=== PATIENT | female | born 1950 | race African-American/Black ===

== ENCOUNTER 2019-02-24 08:27 | Inpatient (IN) | payer OTHER ==
[2019-02-24] VITALS (12 sets, daily range): BP systolic 99–154; BP diastolic 62–100
[~2019-02-24] VITALS: Ht 167.6 cm; Wt 79.4 kg
--- NOTE | 2019-02-24 08:30 | NUR ---
Note undone in [facility] - 02/24/19 at 1006 by SINTIA ED Nurse Note: Patient presents to ER due to being altered. Per EMS, staff found patient altered, performed 2 compressions and no meds was given. Patient was awake when EMS arrived. Patient awake, vent dependent, quadriplegia. Moderate amount of clear oral secretions noted with crakcles, rhonchi in all bilateral lobes. Arrived here with IV to left foream, 22 g. IV site intact without redness, swelling. Provided oral suction. Patient BM x 1 and provided hygiene care. Laceration to left earlobe with dried blood noted. RN able to communicate with patient by blinking her eyes. RN able to confirm her name/. Placed patient on bus driver/monitor. Bed in lowest position. Addendum: 02/24/19 at 0948 by SINTIA Lutz Amendment undone in [facility] - 02/24/19 at 1006 by SINTIA Paniagua* Make a correction on patient being quadroplegic. Patient not able to move BUE, but able to move bilateral feet/ wiggle toes. RN removed soiled dressing from the sacrum and appled clean dressing. Patient has open wound on the sacrum with redness and peeled skin on the bilateral buttocks noted.
--- NOTE | 2019-02-24 08:30 | NUR ---
ED Nurse Note: Patient presents to ER due to being altered. Per EMS, staff found patient altered, performed 2 compressions and no meds was given. Patient was awake when EMS arrived. Patient awake, vent dependent, quadriplegia. Moderate amount of clear oral secretions noted with crakcles, rhonchi in all bilateral lobes. Arrived here with IV to left foream, 22 g. IV site intact without redness, swelling. Provided oral suction. Patient BM x 1 and provided hygiene care. Open wound to left earlobe with dried blood and sacrum noted. Peeled skin on bilatearl buttocks and posterior bilateral upper thigh noted. RN able to communicate with patient by blinking her eyes. RN able to confirm her name/. Placed patient on foundation drill operator helper. Bed in lowest position.
[2019-02-24] MEDS ORDERED: Cefepime HCl 2 GM in NS 110 ML IV STA (08:31)
--- NOTE | 2019-02-24 08:41 | Emergency Room Report ---
History of Present Illness General Chief Complaint: Altered Level of Consciousness Source: Medical Record, EMS Present Illness HPI Apparently staff at the nursing facility couldn't feel a pulse and started CPR. The patient woke up with a couple of compressions. EMS was summoned. They stated she had a lot of secretions by her her tracheostomy. The patient is usually noncommunicative but does open her eyes. CPR was not needed by EMS. They transported the patient here. They're assisting ventilations with bag valve mask. Patient has a tracheostomy Functional paraplegia Gastrostomy Respiratory failure Anxiety/Bipolar/Schizophrenia Flail limb syndrome Further history unavailable. Allergies: Coded Allergies: DIPHENHYDRAMINE (Verified Allergy, Unknown, 02/24/19) FLUPHENAZINE (Verified Allergy, Unknown, 02/24/19) Patient History Past Medical History: see triage record Past Surgical History: other - Tracheostomy Social History Narrative [place] Now: No Reviewed Nursing Documentation: PMH: Agreed; PSxH: Agreed Review of Systems All Other Systems: limited Physical Exam Vital Signs Date Time Temp Pulse Resp B/P (MAP) Pulse Ox O2 Delivery O2 Flow Rate FiO2 02/24/19 08:21 98 18 141/90 100 Mechanical Ventilator 40 Sp02 EP Interpretation: reviewed, normal General Appearance: alert, Chronically Ill Head: normocephalic, atraumatic Eyes: bilateral eye normal inspection, bilateral eye PERRL, bilateral eye EOMI ENT: moist mucus membranes Neck: supple, tracheotomy Respiratory: rales, rhonchi, wheezing, expiration, other - Thick secretions Cardiovascular #1: tachycardia, edema Gastrointestinal: soft, decreased bowel sounds Musculoskeletal: swelling Neurologic: responsive, perforator typist III-XII nml as tested, motor weakness - R hemiparesis, flaccid L upper arm, able to move L foot, sensory deficit Medical Decision Making Diagnostic Impression: Primary Impression: Pneumonia involving left lung Qualified Codes: J18.9 - Pneumonia, unspecified organism Additional Impressions: UTI (urinary tract infection) Qualified Codes: N39.0 - Urinary tract infection, site not specified Functional quadriplegia ER Course Patient presents after alleged cardiac arrest however this appears more to be respiratory difficulty. I differential includes acute myocardial infarction, pneumonia, exacerbation of COPD, sepsis, other occult infection amongst others. The patient will be evaluated with EKG, chest x-ray and labs including lactate , blood cultures and troponin. Patient retreated with IV hydration, breathing treatments, ventilatory support and antibiotics. EKG without injury. Chest x-ray with left infiltrate upper and lower lobes.White count elevated. Anemia present. Electrolytes essentially normal with mild hyperglycemia. Pyuria. Lactic acid normal. ABG with mild increase in CO2 but acceptable. (This was with increasing the tidal volume initially) Patient improving with fluids. Antibiotics begun. Patient discussed with Dr. Bruce who accepts admission to stepdown unit. Laboratory Tests Test 02/24/19 08:40 02/24/19 09:23 02/25/19 02:30 02/25/19 04:25 White Blood Count 17.9 K/UL (4.8-10.8) H 12.5 K/UL (4.8-10.8) H Red Blood Count 3.58 M/UL (4.20-5.40) L 2.90 M/UL (4.20-5.40) L Hemoglobin 9.2 G/DL (12.0-16.0) L 7.5 G/DL (12.0-16.0) L Hematocrit 30.2 % (37.0-47.0) L 24.8 % (37.0-47.0) L Mean Corpuscular Volume 84 FL (80-99) 86 FL (80-99) Mean Corpuscular Hemoglobin 25.6 PG (27.0-31.0) L 26.0 PG (27.0-31.0) L Mean Corpuscular Hemoglobin Concent 30.4 G/DL (32.0-36.0) L 30.4 G/DL (32.0-36.0) L Red Cell Distribution Width 16.3 % (11.6-14.8) H 15.9 % (11.6-14.8) H Platelet Count 613 K/UL (150-450) H 492 K/UL (150-450) H Mean Platelet Volume 5.5 FL (6.5-10.1) L 5.4 FL (6.5-10.1) L Neutrophils (%) (Auto) 81.2 % (45.0-75.0) H % (45.0-75.0) Lymphocytes (%) (Auto) 12.7 % (20.0-45.0) L % (20.0-45.0) Monocytes (%) (Auto) 2.5 % (1.0-10.0) % (1.0-10.0) Eosinophils (%) (Auto) 3.3 % (0.0-3.0) H % (0.0-3.0) Basophils (%) (Auto) 0.4 % (0.0-2.0) % (0.0-2.0) Prothrombin Time 10.7 SEC (9.30-11.50) 11.3 SEC (9.30-11.50) Prothrombin Time INR 1.0 (0.9-1.1) 1.1 (0.9-1.1) PTT 24 SEC (23-33) 26 SEC (23-33) Urine Color Pale yellow Urine Appearance Clear Urine pH 6 (4.5-8.0) Urine Specific [place] 1.010 (1.005-1.035) Urine Protein 2+ (NEGATIVE) H Urine Glucose (UA) Negative (NEGATIVE) Urine Ketones Negative (NEGATIVE) Urine Blood 1+ (NEGATIVE) H Urine Nitrite Negative (NEGATIVE) Urine Bilirubin Negative (NEGATIVE) Urine Urobilinogen Normal MG/DL (0.0-1.0) Urine Leukocyte Esterase 3+ (NEGATIVE) H Urine RBC 0-2 /HPF (0 - 2) Urine WBC 10-15 /HPF (0 - 2) H Urine Squamous Epithelial Cells Few /LPF (NONE/OCC) Urine Bacteria Few /HPF (NONE) Sodium Level 142 MMOL/L (136-145) 143 MMOL/L (136-145) Potassium Level 4.4 MMOL/L (3.5-5.1) 3.7 MMOL/L (3.5-5.1) Chloride Level 104 MMOL/L (98-107) 108 MMOL/L (98-107) H Carbon Dioxide Level 30 MMOL/L (21-32) 29 MMOL/L (21-32) Anion Gap 8 mmol/L (5-15) 6 mmol/L (5-15) Blood Urea Nitrogen 27 mg/dL (7-18) H 20 mg/dL (7-18) H Creatinine 0.4 MG/DL (0.55-1.30) L 0.4 MG/DL (0.55-1.30) L Estimate Glomerular Filtration Rate > 60 mL/min (>60) > 60 mL/min (>60) Glucose Level 173 MG/DL (74-106) H 191 MG/DL (74-106) H Lactic Acid Level 1.20 mmol/L (0.4-2.0) Calcium Level 11.7 MG/DL (8.5-10.1) H 11.0 MG/DL (8.5-10.1) H Total Bilirubin 0.1 MG/DL (0.2-1.0) L Aspartate Amino Transferase (AST) 45 U/L (15-37) H Alanine Aminotransferase (ALT) 85 U/L (12-78) H Alkaline Phosphatase 196 U/L (46-116) H Total Creatine Kinase 52 U/L (26-308) Troponin I 0.000 ng/mL (0.000-0.056) Pro-B-Type Natriuretic Peptide 52 pg/mL (0-125) Total Protein 8.4 G/DL (6.4-8.2) H Albumin 2.2 G/DL (3.4-5.0) L Globulin 6.2 g/dL Albumin/Globulin Ratio 0.4 (1.0-2.7) L Arterial Blood pH 7.361 (7.350-7.450) Arterial Blood Partial Pressure CO2 50.4 mmHg (35.0-45.0) H Arterial Blood Partial Pressure O2 96.0 mmHg (75.0-100.0) Arterial Blood HCO3 27.9 mmol/L (22.0-26.0) H Arterial Blood Oxygen Saturation 96.7 % (95-100) Arterial Blood Base Excess 1.8 (-2-2) Tristan Test Positive Stool Occult Blood Pending Neutrophils % (Manual) Pending Lymphocytes % (Manual) Pending Platelet Estimate Pending Platelet Morphology Pending Erythrocyte Sedimentation Rate Pending Reticulocyte Count Pending Hemoglobin A1c 7.2 % (4.3-6.0) H Iron Level 46 ug/dL (50-175) L Total Iron Binding Capacity 183 ug/dL (250-450) L Percent Iron Saturation 25 % (15-50) Unsaturated Iron Binding 137 ug/dL (112-346) Lactate Dehydrogenase 153 U/L (81-234) Carcinoembryonic Antigen Pending Vitamin B12 Level Pending Folate 17.3 NG/ML (8.6-58.9) Microbiology Date/Time Source Procedure Growth Status 02/24/19 08:55 Nasal Nares Influenza Types A,B Antigen (PAUL) - Final Complete EKG Diagnostic Results Rate: tachycardiac Rhythm: NSR ST Segments: no acute changes Rhythm Strip Diag. Results EP Interpretation: yes Rhythm: no PVC's, no ectopy, other - Sinus tachycardia Chest X-Ray Diagnostic Results Chest X-Ray Diagnostic Results : Chest X-Ray Ordered: Yes # of Views/Limited/Complete: 1 View Indication: Other EP Interpretation: Yes Interpretation: no pneumothorax, other - L infiltrate and possible effusion Impression: Other Electronically Signed by: Electronically signed by Chadwick Casas MD Last Vital Signs Date Time Temp Pulse Resp B/P (MAP) Pulse Ox O2 Delivery O2 Flow Rate FiO2 02/25/19 06:57 76 16 45 02/25/19 06:30 117/69 (85) 100 02/25/19 04:00 98.0 02/25/19 04:00 Mechanical Ventilator 02/24/19 16:00 45.0 Status: improved Disposition: ADMITTED INPATIENT Condition: Serious Chadwick Casas MD Feb 24, 2019 08:41
[2019-02-24] MEDS ORDERED: Ipratropium 0.02% Inh Soln 2.5ml UD HHN ONE (08:45)
[2019-02-24] MEDS ORDERED: Vancomycin 1 GM in NS 275 ML IV ONE (08:45)
[2019-02-24] MEDS ORDERED: Solu-MEDROL 125mg Inj IVP ONE (08:45)
[2019-02-24] MEDS ORDERED: Albuterol ud Inhalation HHN ONE (08:45)
[2019-02-24] MEDS ORDERED: LIPITOR10 MG GT (08:46)
[2019-02-24] MEDS ORDERED: VITAMIN C500 M1 GT (08:46)
[2019-02-24] MEDS ORDERED: FAMOTIDINE20 MG GT (08:46)
[2019-02-24] MEDS ORDERED: MULTIVITAMINS1 EAC2 GT (08:46)
[2019-02-24] MEDS ORDERED: LOVENOX10 M4 SUBQ (08:46)
[2019-02-24] MEDS ORDERED: TYLENOL325 MG GT (08:46)
[2019-02-24] MEDS ORDERED: COLACE100 MG GT (08:46)
[2019-02-24] MEDS ORDERED: NORVASC5 MG GT (08:46)
[2019-02-24] MEDS ORDERED: ZINC SULFATE220 M1 GT (08:46)
[2019-02-24] MEDS ORDERED: KLONOPIN0.5 MG ORAL (08:46)
[2019-02-24 09:04] LABS: APPEARANCE,URINE CLEAR; BASOPHILS % (AUTO) 0.4 % (0.0-2.0); BILIRUBIN, URINE NEGATIVE (NEGATIVE); COLOR,URINE PALE YELLOW; EOSINOPHILS % (AUTO) 3.3 % (0.0-3.0); GLUCOSE, URINE (UA) NEGATIVE (NEGATIVE); HEMATOCRIT 30.2 % (37.0-47.0); HEMOGLOBIN 9.2 G/DL (12.0-16.0); KETONES,URINE NEGATIVE (NEGATIVE); LEUKOCYTE ESTERASE ,URINE 3+ (NEGATIVE); LYMPHOCYTES % (AUTO) 12.7 % (20.0-45.0); MEAN CORPUSCULAR VOLUME 84 FL (80-99); MONOCYTES % (AUTO) 2.5 % (1.0-10.0); NEUTROPHILS % (AUTO) 81.2 % (45.0-75.0); NITRITE,URINE NEGATIVE (NEGATIVE); PH,URINE 6 (4.5-8.0); PLATELET COUNT 613 K/UL (150-450); PROTEIN,URINE 2+ (NEGATIVE); RED BLOOD COUNT 3.58 M/UL (4.20-5.40); RED CELL DISTRIBUTION WIDTH 16.3 % (11.6-14.8); UROBILINOGEN,URINE NORMAL MG/DL (0.0-1.0); WHITE BLOOD COUNT 17.9 K/UL (4.8-10.8)
[2019-02-24 09:10] LABS: ANION GAP 8 mmol/L (5-15); BLOOD UREA NITROGEN 27 mg/dL (7-18); CALCIUM 11.7 MG/DL (8.5-10.1); CARBON DIOXIDE 30 MMOL/L (21-32); CHLORIDE 104 MMOL/L (98-107); CREATININE 0.4 MG/DL (0.55-1.30); POTASSIUM 4.4 MMOL/L (3.5-5.1); SODIUM 142 MMOL/L (136-145)
[2019-02-24 09:21] LABS: ALANINE AMINOTRANSFERASE 85 U/L (12-78); ALBUMIN 2.2 G/DL (3.4-5.0); ALBUMIN/GLOBULIN RATIO 0.4 (1.0-2.7); ALKALINE PHOSPHATASE 196 U/L (46-116); ASPARTATE AMINO TRANSFERASE 45 U/L (15-37); BILIRUBIN,TOTAL 0.1 MG/DL (0.2-1.0); CREATINE KINASE 52 U/L (26-308)
--- NOTE | 2019-02-24 10:07 | NUR ---
ED Nurse Note: Provided pillow support on BUE and bilateral heels. Bed in lowest position.
--- NOTE | 2019-02-24 10:13 | NUR ---
ED Nurse Note: This RN and DB Forman attempted to upload pictures, but the system unable to locate/find patient and unable to save the pictures at this time.
--- NOTE | 2019-02-24 10:34 | Diagnostic Imaging Report ---
Indication: Dyspnea Comparison: None A single view chest radiograph was obtained. Findings: There is opacification of the left hemithorax which may be due to a pleural effusion. Underlying infiltrate is difficult to exclude especially at the left lung base. Heart size is probably normal. There is a tracheostomy present. Bones are osteopenic. IMPRESSION: Diffuse opacity projected over the left hemithorax. Suspect pleural disease either pleural effusion or pleural thickening. Difficult to exclude underlying parenchymal disease. Tracheostomy
--- NOTE | 2019-02-24 11:40 | NUR ---
ED Nurse Note: Placed patient in hopital bed. Patient voided x 1. Bed in lowest position. No facial grimacing or guarding noted.
--- NOTE | 2019-02-24 12:06 | NUR ---
ED Nurse Note: Patient's weight is 149.5lb.
--- NOTE | 2019-02-24 12:20 | NUR ---
ED Nurse Note: Called ICU. No nurse available at this time. Will call later.
--- NOTE | 2019-02-24 13:45 | NUR ---
NURSE NOTES: Carmine received report over the phone. Patient presents to ICU due to being altered mental status. Patient awake, lethargic, audiable respiratory distress. trach portex 7.0 to vent, settings AC14, TV 450, FI02 45%, PEEP 5. Moderate amount of white oral secretions. rhonchi bilateral lobes. IV to LT FA, 22 g, 20g RT hand. oral suction. Patient BM x 1 and provided hygiene care. incontinent of urine. Open wound to left earlobe, sacrum noted. patient communicates by blinking her eyes. . Placed patient on tool adjuster. Bed in lowest position. fall precautions in place.
--- NOTE | 2019-02-24 15:00 | NUR ---
NURSE NOTES: called MD Bruce for orders. protonix 40mg ivpb daily. hep 5,000units Q12hr, d5 1/2 NS @100, sputum culture, zosyn 3.325mg Q6hr ivpb, vanco to pharmacy, cbc/bmp/ hgb A1c in am, two meg @50ml duplex of lower extremities, Cormier cath.
--- NOTE | 2019-02-24 16:50 | NUR ---
NURSE NOTES: Cormier cath inserted, secured to leg and draining below bladder by gravity. pt tolerated well. large urine output. will continue to monitor pt.
[2019-02-24] MEDS: D5 1/2NS 1,000 ML IV SCH (16:51)
[2019-02-24] MEDS ORDERED: Vancomycin 500mg/D5W 110ml IVPB ONE ×2 (17:00)
[2019-02-24] MEDS: Piperacillin/Tazobactam 3.375 GM in D5W 110 ML IVPB SCH (17:40)
--- NOTE | 2019-02-24 18:00 | NUR ---
NURSE NOTES: called pharmacy regarding vano 500mg. will bring up as soon as possible. will hang once available.
--- NOTE | 2019-02-24 19:04 | NUR ---
RESPIRATORY NOTE: Received pt on AC 14, 450VT, 45%, PEEP +5. Pt trach-dependent w/ a cuffed, Portex 7 tube. Pt is awake, responds to stimuli. B/S larisa. rhonchi, sxn minimal amounts of thick/thin, pale-yellow secretions. Vent plugged into red outlet, ambubag at bedside. Pt in no apparent distress at this time. Will continue plan of care.
--- NOTE | 2019-02-24 19:54 | NUR ---
HAND-OFF: Report given to telma. pt in no acute distress.
--- NOTE | 2019-02-24 19:55 | NUR ---
NURSE NOTES: Endorsement received from DB Martinez. Patient opens eyes to name. Follows simple commands. Bilateral upper arms flaccid, able to move toes. Trache to vent. Portex 7.0. AC 14 Tv 450, PEEP 5, 45%. GT patent and intact. Receiving TwoCal 20ml/hr with goal of 50ml/hr. No residual noted. Cormier connected to urimeter. Right hand g18, left wrist g22. Receiving D5 1/2 NS 100 ml/hr. Head of bed elevated. Bed locked, in low position. Bed alarm on. Call light within reach.
[2019-02-24] MEDS: Heparin 5000 units/ml inj SUBQ SCH (21:20)
--- NOTE | 2019-02-24 22:00 | NUR ---
NURSE NOTES: Patient asleep at this time. Appears comfortable. No shortness of breath.
[2019-02-25] VITALS (12 sets, daily range): BP systolic 94–117; BP diastolic 54–70
--- NOTE | 2019-02-25 | NUR ---
NURSE NOTES: Bed bath, oral care, change of linens and dressings done.
--- NOTE | 2019-02-25 02:00 | NUR ---
NURSE NOTES: Sample for stool OB and Sputum C&S collected and sent to the lab.
[2019-02-25] MEDS: D5 1/2NS 1,000 ML IV SCH ×3 (02:32→21:26)
--- NOTE | 2019-02-25 04:00 | NUR ---
NURSE NOTES: Bed bath, oral care, change of dressings and linens done.
[2019-02-25] MEDS: Vancomycin 750mg/NS 275ml IVPB SCH ×4 (04:46→17:57)
[2019-02-25 05:33] LABS: INR 1.1 (0.9-1.1)
[2019-02-25 05:38] LABS: HEMATOCRIT 24.8 % (37.0-47.0); HEMOGLOBIN 7.5 G/DL (12.0-16.0); MEAN CORPUSCULAR VOLUME 86 FL (80-99); PLATELET COUNT 492 K/UL (150-450); RED CELL DISTRIBUTION WIDTH 15.9 % (11.6-14.8); WHITE BLOOD COUNT 12.5 K/UL (4.8-10.8)
[2019-02-25 05:48] LABS: ANION GAP 6 mmol/L (5-15); BLOOD UREA NITROGEN 20 mg/dL (7-18); CARBON DIOXIDE 29 MMOL/L (21-32); CHLORIDE 108 MMOL/L (98-107); CREATININE 0.4 MG/DL (0.55-1.30); POTASSIUM 3.7 MMOL/L (3.5-5.1); SODIUM 143 MMOL/L (136-145)
[2019-02-25 05:50] LABS: LACTATE DEHYDROGENASE 153 U/L (81-234)
[2019-02-25 05:54] LABS: % IRON SATURATION 25 % (15-50); IRON 46 ug/dL (50-175); TOTAL IRON BINDING CAPACITY 183 ug/dL (250-450)
[2019-02-25] MEDS: Piperacillin/Tazobactam 3.375 GM in D5W 110 ML IVPB SCH ×3 (06:26→21:27)
--- NOTE | 2019-02-25 06:30 | NUR ---
TRANSFER TO FLOOR: Patient transferred to [facility], per hospital bed. Report given to DB Monk. Patient has no belongings, medications given to DB Monk
--- NOTE | 2019-02-25 06:45 | NUR ---
NURSE NOTES: Received a transfer patient from ICU,report given by DB Liu.Patient has no respiratory distress,no s/s of pain SR on bus driver/monitor,open eyes,blinking,Trach Portex 7 AC 14 TV 450 FiO2 45% PEEP 5,GT in place running @ 30 ml/hr,goal is 50 ml/hr,BS active in all quadrants,f/cath in place running toward gravity,pt on P 200 mattress,IV asymptomatic,intact on R hand G 18 and L wrist G 22 running w/D 5 1/2 NS@ 100ml/hr,belongings list signed for no belongings,will continue to monitor and follow POC.
--- NOTE | 2019-02-25 06:57 | NUR ---
RESPIRATORY NOTE: Received pt on AC 14, 450VT, 45%, PEEP +5. Pt trach-dependent w/ a cuffed, Portex 7 tube. Pt is awake, responds to stimuli. B/S larisa. rhonchi diminished heard upon auscultation, sxn moderate amounts of thick klein-yellow secretions without incidents. Vent plugged into red outlet, ambu bag at bedside, alarms are set and audible. Pt in no apparent distress at this time. Will continue plan of care.
--- NOTE | 2019-02-25 07:19 | NUR ---
HAND-OFF: Report given to DB Kaur.Patient stable.
--- NOTE | 2019-02-25 07:20 | NUR ---
NURSE NOTES: Report received from Aleshia Villa RN.Pt resting in bed asleep ,noted no resp distress with trach tube to vent ,on current settings,tolerating well,GTF 2 call at 40 ml/hr, goal is 50,no residual noted,Cormier cath to BSD draining yellow urine,IV sites x2 RH and LW with IVF D5 1/2 NS at 100 ml/hr both intact,SR up x2 HOB elevated,bed lock in lowest position,will continue with plans of care.
[2019-02-25] MEDS: Pantoprazole Inj IVP SCH (09:04)
[2019-02-25] MEDS: Heparin 5000 units/ml inj SUBQ SCH ×2 (09:06→21:26)
--- NOTE | 2019-02-25 09:39 | NUR ---
INTERIOR DESIGN PROFESSIONALANESTHESIOLOGIST ATTENDING 68 Y/O FEMALE BIBA FROM [facility] TO [facility] CC:ALOC SI:PNA . UTI VS: BP 154/100, P 110, T 99.6, RR 14, SpO2 100 ETT AC 14, TV 450, PEEP 5.0 FiO2 45 WBC 17.9, RBC 3.58, Hgb 9.2, Hct 30.2, BUN 20, CR 0.4, URINE PROTEIN 2+, URINE BLOOD 1+, UR LEUKOCYTE ESTERASE 3+ CXR IMPRESSION: Diffuse opacity projected over the left hemithorax. Suspect pleural disease either pleural effusion or pleural thickening. Difficult to exclude underlying parenchymal disease. IS:VANCOMYCIN 275ml IV D5/NS x1L IV ADMITTED TO SDU DC PLAN: RETURN TO [facility]
--- NOTE | 2019-02-25 10:25 | NUR ---
RD ASSESSMENT & RECOMMENDATIONS SEE CARE ACTIVITY FOR COMPLETE ASSESSMENT DAILY ESTIMATED NEEDS: Needs based on Critical care, wounds 63kg 22-30 kcals/kg 0721-0605 total kcals 1.25-2 g protein/kg 79-126 g total protein 25-30 mL/kg 2037-8008 total fluid mLs NUTRITION DIAGNOSIS: 1) Swallowing difficulty r/t respiratory status as evidenced by pt is vent dep via trach, GT dep, on tube feeds. 2) Increased kcal and protein needs r/t wound healing as evidenced by pt w/ partial thickness sacral wound, L ear wound documented as unstageable. CURRENT TF:2cal @50ml * Exceeds kcal needs by 127% * ENTERAL NUTRITION RECOMMENDATIONS: TF CHANGE TO -> VITAL AF 1.2 @50ml/hr x24 hrs to provide 1200ml, 1440 kcal, 90g pro, 973ml free H2O - REC TF CHANGE TO VITAL AF 1.2, start @30ml/hr, advance as tolerated 10ml q4-6 hrs to goal - Flush per MD. HOB over 30 degrees -------- ADDITIONAL RECOMMENDATIONS: 1) PER SNF: pt is 139#, 65inches tall 2) Add ALEENA BID via GT daily F/up w/ WC eval 3) Rec SSI, bedside blood checks 4) Check lytes daily, replete as needed 5) Weekly CALIBRATED bed scale wts
--- NOTE | 2019-02-25 11:15 | NUR ---
NURSE NOTES: Seen by Dr Corrigan,ordered bld transfusion for Hg7.5/Hct24.0 ,will obtain consent for blood transfusion.
--- NOTE | 2019-02-25 11:23 | NUR ---
NURSE NOTES: initial intervention to be included Addendum: 02/25/19 at 1124 by Michelle Whiteside RN Amended: Links added.
--- NOTE | 2019-02-25 11:25 | Consultation ---
History of Present Illness General Chief Complaint: Altered Level of Consciousness Present Illness HPI 68 year old female with hx of chronic respiratory failure, s/p trach, vent, PEG , alf resident brought in by paramedics because the staff at the alf couldn't feel a pulse and started CPR on her . The patient woke up with a couple of compressions. She had a lot of secretions by her her tracheostomy. The patient is usually noncommunicative but does open her eyes. She was evaluated in ER and admitted to [facility] for treatment of her pneumonia. Allergies: Coded Allergies: DIPHENHYDRAMINE (Verified Allergy, Unknown, 02/24/19) FLUPHENAZINE (Verified Allergy, Unknown, 02/24/19) Medication History Scheduled Amlodipine Besylate (Norvasc), 5 MG GT DAILY, (Reported) Ascorbic Acid* (Vitamin C*), 500 MG GT DAILY, (Reported) Atorvastatin Calcium* (Lipitor*), 10 MG GT DAILY, (Reported) Clonazepam* (Klonopin*), 0.5 MG ORAL Q12HR, (Reported) Docusate Sodium* (Colace*), 100 MG GT DAILY, (Reported) Enoxaparin* (Lovenox*), 40 MG SUBQ DAILY, (Reported) Famotidine (Famotidine), 20 MG GT DAILY, (Reported) Multivitamins* (Multivitamins*), 1 TAB GT DAILY, (Reported) Zinc Sulfate (Zinc Sulfate*), 220 MG GT DAILY, (Reported) Scheduled PRN Acetaminophen (Tylenol), 325 MG GT Q4HR PRN for Prn Pain/Headache/Temp > 101, ( Reported) Patient History Healthcare decision maker unable to obtain Resuscitation status Full Code Advanced Directive on File Past Medical/Surgical History Past Medical/Surgical History: (1) Chronic respiratory failure (2) Feeding by G-tube Review of Systems Neurological: Reports: no symptoms Endocrine: Reports: no symptoms Hematologic/Lymphatic: Reports: no symptoms Physical Exam General Appearance: WD/WN, no apparent distress Lines, tubes and drains: peripheral HEENT: normocephalic, atraumatic Neck: non-tender, normal alignment Respiratory/Chest: chest wall non-tender, rhonchi - left, rhonchi - right Breasts: no masses Cardiovascular/Chest: normal peripheral pulses Abdomen: normal bowel sounds, non tender Genitourinary/Rectal: normal genital exam Last 24 Hour Vital Signs Date Time Temp Pulse Resp B/P (MAP) Pulse Ox O2 Delivery O2 Flow Rate FiO2 02/25/19 10:36 78 02/25/19 09:20 69 14 45 02/25/19 08:00 Mechanical Ventilator 02/25/19 08:00 45 02/25/19 08:00 97.7 75 15 116/70 (85) 100 02/25/19 06:57 76 16 45 02/25/19 06:30 72 17 117/69 (85) 100 02/25/19 06:00 72 15 104/59 (74) 100 02/25/19 05:10 67 14 45 02/25/19 05:00 72 15 98/54 (69) 99 02/25/19 04:00 98.0 77 16 112/63 (79) 100 02/25/19 04:00 45 02/25/19 04:00 Mechanical Ventilator 02/25/19 04:00 72 02/25/19 03:00 70 16 109/58 (75) 100 02/25/19 02:55 69 15 45 02/25/19 02:00 71 17 111/69 (83) 100 02/25/19 01:00 69 17 45 02/25/19 01:00 69 17 111/69 (83) 100 02/25/19 00:00 97.9 71 18 108/68 (81) 100 02/25/19 00:00 71 02/25/19 00:00 45 02/25/19 00:00 Mechanical Ventilator 02/24/19 23:00 73 18 128/84 (99) 100 02/24/19 22:56 71 22 45 02/24/19 22:00 69 17 105/63 (77) 100 02/24/19 21:00 68 17 105/63 (77) 100 02/24/19 20:50 70 16 45 02/24/19 20:00 70 16 108/67 (81) 100 02/24/19 20:00 Mechanical Ventilator 02/24/19 20:00 45 02/24/19 20:00 71 02/24/19 19:02 84 20 45 02/24/19 19:00 98.0 74 14 115/72 (86) 100 02/24/19 18:04 80 14 121/73 (89) 100 02/24/19 17:47 Mechanical Ventilator 02/24/19 17:29 86 15 45 02/24/19 17:01 87 27 114/68 (83) 99 02/24/19 16:19 90 02/24/19 16:00 22 99/62 (74) 99 02/24/19 16:00 Mechanical Ventilator 45.0 02/24/19 15:02 95 20 45 02/24/19 15:00 98.2 93 22 111/67 (82) 99 02/24/19 14:08 Mechanical Ventilator 02/24/19 12:58 98.1 82 16 110/65 99 Room Air 02/24/19 12:52 93 15 45 02/24/19 11:30 98.4 94 16 136/74 99 Mechanical Ventilator 45 Intake and Output 02/24/19 02/25/19 18:59 06:59 Intake Total 1762.5 ml 2027.500 ml Output Total 30 ml 1050 ml Balance 1732.5 ml 977.500 ml Intake Free Water 160 ml IV Total 1762.5 ml 1557.500 ml Tube Feeding 310 ml Output Urine Total 30 ml 1050 ml # Bowel Movements 2 1 Laboratory Tests Test 02/25/19 02:30 02/25/19 04:25 Stool Occult Blood Negative (NEGATIVE) White Blood Count 12.5 K/UL (4.8-10.8) H Red Blood Count 2.90 M/UL (4.20-5.40) L Hemoglobin 7.5 G/DL (12.0-16.0) L Hematocrit 24.8 % (37.0-47.0) L Mean Corpuscular Volume 86 FL (80-99) Mean Corpuscular Hemoglobin 26.0 PG (27.0-31.0) L Mean Corpuscular Hemoglobin Concent 30.4 G/DL (32.0-36.0) L Red Cell Distribution Width 15.9 % (11.6-14.8) H Platelet Count 492 K/UL (150-450) H Mean Platelet Volume 5.4 FL (6.5-10.1) L Neutrophils (%) (Auto) % (45.0-75.0) Lymphocytes (%) (Auto) % (20.0-45.0) Monocytes (%) (Auto) % (1.0-10.0) Eosinophils (%) (Auto) % (0.0-3.0) Basophils (%) (Auto) % (0.0-2.0) Differential Total Cells Counted 100 Neutrophils % (Manual) 91 % (45-75) H Lymphocytes % (Manual) 7 % (20-45) L Monocytes % (Manual) 2 % (1-10) Eosinophils % (Manual) 0 % (0-3) Basophils % (Manual) 0 % (0-2) Band Neutrophils 0 % (0-8) Platelet Estimate Adequate Platelet Morphology Normal Polychromasia 1+ Anisocytosis 1+ Erythrocyte Sedimentation Rate 127 MM/HR (0-30) H Reticulocyte Count 1.3 % (0.0-2.0) Prothrombin Time 11.3 SEC (9.30-11.50) Prothromb Time International Ratio 1.1 (0.9-1.1) Activated Partial Thromboplast Time 26 SEC (23-33) Sodium Level 143 MMOL/L (136-145) Potassium Level 3.7 MMOL/L (3.5-5.1) Chloride Level 108 MMOL/L (98-107) H Carbon Dioxide Level 29 MMOL/L (21-32) Anion Gap 6 mmol/L (5-15) Blood Urea Nitrogen 20 mg/dL (7-18) H Creatinine 0.4 MG/DL (0.55-1.30) L Estimat Glomerular Filtration Rate > 60 mL/min (>60) Glucose Level 191 MG/DL (74-106) H Hemoglobin A1c 7.2 % (4.3-6.0) H Calcium Level 11.0 MG/DL (8.5-10.1) H Iron Level 46 ug/dL (50-175) L Total Iron Binding Capacity 183 ug/dL (250-450) L Percent Iron Saturation 25 % (15-50) Unsaturated Iron Binding 137 ug/dL (112-346) Lactate Dehydrogenase 153 U/L (81-234) Carcinoembryonic Antigen Pending Vitamin B12 Level > 2000 PG/ML (193-986) H Folate 17.3 NG/ML (8.6-58.9) Microbiology Date/Time Source Procedure Growth Status 02/25/19 01:00 Sputum Gram Stain - Final Resulted 02/25/19 01:00 Sputum Sputum Culture Pending Resulted Height (Feet): 5 Height (Inches): 6.00 Weight (Pounds): 175 Medications Current Medications Medications (Trade) Dose Ordered Sig/Lavon Route PRN Reason Start Time Stop Time Status Last Admin Dose Admin Dextrose/Sodium Chloride 1,000 ml @ 100 mls/hr Q10H IV 02/24/19 16:00 03/26/19 15:59 02/25/19 02:32 Heparin Sodium (Porcine) (Heparin 5000 units/ml) 5,000 units EVERY 12 HOURS SUBQ 02/24/19 21:00 03/26/19 20:59 02/25/19 09:06 Pantoprazole (Protonix) 40 mg DAILY IVP 02/25/19 09:00 03/27/19 08:59 02/25/19 09:04 Piperacillin Sod/ Tazobactam Sod 3.375 gm/Dextrose 110 ml @ 27.5 mls/hr Q8HR IVPB 02/24/19 18:00 03/03/19 17:59 02/25/19 06:26 Vancomycin HCl (Vanco rx to dose) 1 ea DAILY PRN MISC Per rx protocol 02/24/19 16:00 03/26/19 15:59 Vancomycin HCl 750 mg/Sodium Chloride 275 ml @ 183.333 mls/hr Q12HR@0500,1700 IVPB 02/25/19 05:00 03/02/19 04:59 02/25/19 04:46 Assessment/Plan Problem List: (1) Acute and chronic respiratory failure ICD Codes: J96.20 - Acute and chronic respiratory failure, unspecified whether with hypoxia or hypercapnia SNOMED: 02224608 (2) Pneumonia involving left lung ICD Codes: J18.9 - Pneumonia, unspecified organism SNOMED: 621251951 Qualifiers: Qualified Codes: J18.9 - Pneumonia, unspecified organism (3) Severe anemia ICD Codes: D64.9 - Anemia, unspecified SNOMED: 702279546 (4) Chronic respiratory failure ICD Codes: J96.10 - Chronic respiratory failure, unspecified whether with hypoxia or hypercapnia SNOMED: 70867016 (5) Functional quadriplegia ICD Codes: R53.2 - Functional quadriplegia SNOMED: 314337889136994 (6) Feeding by G-tube ICD Codes: Z93.1 - Gastrostomy status SNOMED: 858306974, 011009219, 751184232 Respiratory: monitor respiratory rate, adjust FIO2 Cardiac: continue to monitor HR/BP Renal: F/U I&O, keep IV fluid Infectious Disease: check cultures, continue antibiotics Gastrointestinal: continue feedings/current rate Endocrine: check TSH, check HgA1C Hematologic: transfuse if hgb<8.5 Neurologic: PRN Ativan, PRN Morphine, keep patient comfortable Affect: PRN ativan Prophylaxis: Protonix, Heparin Time Spent (Minutes): 40 Notes Reviewed: first beater, renal Discussed with: nurses, consultants, rn case manager hospice Rula Corrigan MD Feb 25, 2019 11:25
--- NOTE | 2019-02-25 12:20 | NUR ---
NURSE NOTES: called Public Guardian for consent for bld transfusion,but said he will consult the court .mammography technician Elsa notified Dr mccormack ,said he will give consent in the progress note.
--- NOTE | 2019-02-25 12:26 | Consultation ---
History of Present Illness General Date patient seen: Feb 25, 2019 Chief Complaint: Altered Level of Consciousness Present Illness HPI 68 y/o F with hx of chronic respiratory failure, s/p trach, vent, PEG, anxiety, schizoaffective disorder, [facility] resident presents to ED on 02/24 after [facility] staff couldnt feel a pulce and CPR was started. Patient woke up with a couple of compressions. She was noted to have lots of secretions from trach, Allergies: Coded Allergies: DIPHENHYDRAMINE (Verified Allergy, Unknown, 02/24/19) FLUPHENAZINE (Verified Allergy, Unknown, 02/24/19) Medication History Scheduled Amlodipine Besylate (Norvasc), 5 MG GT DAILY, (Reported) Ascorbic Acid* (Vitamin C*), 500 MG GT DAILY, (Reported) Atorvastatin Calcium* (Lipitor*), 10 MG GT DAILY, (Reported) Clonazepam* (Klonopin*), 0.5 MG ORAL Q12HR, (Reported) Docusate Sodium* (Colace*), 100 MG GT DAILY, (Reported) Enoxaparin* (Lovenox*), 40 MG SUBQ DAILY, (Reported) Famotidine (Famotidine), 20 MG GT DAILY, (Reported) Multivitamins* (Multivitamins*), 1 TAB GT DAILY, (Reported) Zinc Sulfate (Zinc Sulfate*), 220 MG GT DAILY, (Reported) Scheduled PRN Acetaminophen (Tylenol), 325 MG GT Q4HR PRN for Prn Pain/Headache/Temp > 101, ( Reported) Patient History Healthcare decision maker unable to obtain Resuscitation status Full Code Advanced Directive on File Patient History Narrative Pmhx: as above Shx: reviewed Fhx non contributory Review of Systems All Other Systems: negative except mentioned in HPI Physical Exam Physical Exam Narrative General Appearance: WD/WN, no apparent distress Lines, tubes and drains: peripheral HEENT: normocephalic, atraumatic Neck: non-tender, normal alignment Respiratory/Chest: chest wall non-tender, rhonchi - left, rhonchi - right Cardiovascular/Chest: normal peripheral pulses Abdomen: normal bowel sounds, non tender Last 24 Hour Vital Signs Date Time Temp Pulse Resp B/P (MAP) Pulse Ox O2 Delivery O2 Flow Rate FiO2 02/25/19 11:23 79 15 45 02/25/19 10:36 78 02/25/19 09:20 69 14 45 02/25/19 08:00 Mechanical Ventilator 02/25/19 08:00 45 02/25/19 08:00 97.7 75 15 116/70 (85) 100 02/25/19 06:57 76 16 45 02/25/19 06:30 72 17 117/69 (85) 100 02/25/19 06:00 72 15 104/59 (74) 100 02/25/19 05:10 67 14 45 02/25/19 05:00 72 15 98/54 (69) 99 02/25/19 04:00 98.0 77 16 112/63 (79) 100 02/25/19 04:00 45 02/25/19 04:00 Mechanical Ventilator 02/25/19 04:00 72 02/25/19 03:00 70 16 109/58 (75) 100 02/25/19 02:55 69 15 45 02/25/19 02:00 71 17 111/69 (83) 100 02/25/19 01:00 69 17 45 02/25/19 01:00 69 17 111/69 (83) 100 02/25/19 00:00 97.9 71 18 108/68 (81) 100 02/25/19 00:00 71 02/25/19 00:00 45 02/25/19 00:00 Mechanical Ventilator 02/24/19 23:00 73 18 128/84 (99) 100 02/24/19 22:56 71 22 45 02/24/19 22:00 69 17 105/63 (77) 100 02/24/19 21:00 68 17 105/63 (77) 100 02/24/19 20:50 70 16 45 02/24/19 20:00 70 16 108/67 (81) 100 02/24/19 20:00 Mechanical Ventilator 02/24/19 20:00 45 02/24/19 20:00 71 02/24/19 19:02 84 20 45 02/24/19 19:00 98.0 74 14 115/72 (86) 100 02/24/19 18:04 80 14 121/73 (89) 100 02/24/19 17:47 Mechanical Ventilator 02/24/19 17:29 86 15 45 02/24/19 17:01 87 27 114/68 (83) 99 02/24/19 16:19 90 02/24/19 16:00 22 99/62 (74) 99 02/24/19 16:00 Mechanical Ventilator 45.0 02/24/19 15:02 95 20 45 02/24/19 15:00 98.2 93 22 111/67 (82) 99 02/24/19 14:08 Mechanical Ventilator 02/24/19 12:58 98.1 82 16 110/65 99 Room Air 02/24/19 12:52 93 15 45 Intake and Output 02/24/19 02/25/19 18:59 06:59 Intake Total 1762.5 ml 2027.500 ml Output Total 30 ml 1050 ml Balance 1732.5 ml 977.500 ml Intake Free Water 160 ml IV Total 1762.5 ml 1557.500 ml Tube Feeding 310 ml Output Urine Total 30 ml 1050 ml # Bowel Movements 2 1 Laboratory Tests Test 02/25/19 02:30 02/25/19 04:25 Stool Occult Blood Negative (NEGATIVE) White Blood Count 12.5 K/UL (4.8-10.8) H Red Blood Count 2.90 M/UL (4.20-5.40) L Hemoglobin 7.5 G/DL (12.0-16.0) L Hematocrit 24.8 % (37.0-47.0) L Mean Corpuscular Volume 86 FL (80-99) Mean Corpuscular Hemoglobin 26.0 PG (27.0-31.0) L Mean Corpuscular Hemoglobin Concent 30.4 G/DL (32.0-36.0) L Red Cell Distribution Width 15.9 % (11.6-14.8) H Platelet Count 492 K/UL (150-450) H Mean Platelet Volume 5.4 FL (6.5-10.1) L Neutrophils (%) (Auto) % (45.0-75.0) Lymphocytes (%) (Auto) % (20.0-45.0) Monocytes (%) (Auto) % (1.0-10.0) Eosinophils (%) (Auto) % (0.0-3.0) Basophils (%) (Auto) % (0.0-2.0) Differential Total Cells Counted 100 Neutrophils % (Manual) 91 % (45-75) H Lymphocytes % (Manual) 7 % (20-45) L Monocytes % (Manual) 2 % (1-10) Eosinophils % (Manual) 0 % (0-3) Basophils % (Manual) 0 % (0-2) Band Neutrophils 0 % (0-8) Other Cell Type Pathologist review Platelet Estimate Adequate Platelet Morphology Normal Polychromasia 1+ Anisocytosis 1+ Erythrocyte Sedimentation Rate 127 MM/HR (0-30) H Reticulocyte Count 1.3 % (0.0-2.0) Prothrombin Time 11.3 SEC (9.30-11.50) Prothromb Time International Ratio 1.1 (0.9-1.1) Activated Partial Thromboplast Time 26 SEC (23-33) Sodium Level 143 MMOL/L (136-145) Potassium Level 3.7 MMOL/L (3.5-5.1) Chloride Level 108 MMOL/L (98-107) H Carbon Dioxide Level 29 MMOL/L (21-32) Anion Gap 6 mmol/L (5-15) Blood Urea Nitrogen 20 mg/dL (7-18) H Creatinine 0.4 MG/DL (0.55-1.30) L Estimat Glomerular Filtration Rate > 60 mL/min (>60) Glucose Level 191 MG/DL (74-106) H Hemoglobin A1c 7.2 % (4.3-6.0) H Calcium Level 11.0 MG/DL (8.5-10.1) H Iron Level 46 ug/dL (50-175) L Total Iron Binding Capacity 183 ug/dL (250-450) L Percent Iron Saturation 25 % (15-50) Unsaturated Iron Binding 137 ug/dL (112-346) Lactate Dehydrogenase 153 U/L (81-234) Carcinoembryonic Antigen Pending Vitamin B12 Level > 2000 PG/ML (193-986) H Folate 17.3 NG/ML (8.6-58.9) Microbiology Date/Time Source Procedure Growth Status 02/25/19 01:00 Sputum Gram Stain - Final Resulted 02/25/19 01:00 Sputum Sputum Culture Pending Resulted Height (Feet): 5 Height (Inches): 6.00 Weight (Pounds): 175 Medications Current Medications Medications (Trade) Dose Ordered Sig/Lavon Route PRN Reason Start Time Stop Time Status Last Admin Dose Admin Dextrose/Sodium Chloride 1,000 ml @ 100 mls/hr Q10H IV 02/24/19 16:00 03/26/19 15:59 02/25/19 02:32 Heparin Sodium (Porcine) (Heparin 5000 units/ml) 5,000 units EVERY 12 HOURS SUBQ 02/24/19 21:00 03/26/19 20:59 02/25/19 09:06 Pantoprazole (Protonix) 40 mg DAILY IVP 02/25/19 09:00 03/27/19 08:59 02/25/19 09:04 Piperacillin Sod/ Tazobactam Sod 3.375 gm/Dextrose 110 ml @ 27.5 mls/hr Q8HR IVPB 02/24/19 18:00 03/03/19 17:59 02/25/19 06:26 Vancomycin HCl (Vanco rx to dose) 1 ea DAILY PRN MISC Per rx protocol 02/24/19 16:00 03/26/19 15:59 Vancomycin HCl 750 mg/Sodium Chloride 275 ml @ 183.333 mls/hr Q12HR@0500,1700 IVPB 02/25/19 05:00 03/02/19 04:59 02/25/19 04:46 Assessment/Plan Assessment/Plan Abx: IV Vancomycin 02/24- Zosyn 02/24- CEfepime x1 02/24 Levaquin x1 02/24 Assessment: Sepsis 2ryt o Probable PNA and UTI -CXR: Diffuse opacity projected over the left hemithorax. Suspect pleural disease either pleural effusion or pleural thickening. Difficult to exclude underlying parenchymal disease. -sp cx p -u/a wbc 10-15, nit neg, leuk +3; ucx p -influenza sc neg Afebrile Leukocytosis, improving Elevated LFTs chronic respiratory failure s/p trach/vent PEG anxiety schizoaffective disorder [facility] resident Plan: -Continue empiric IV Vancomycin and Zosyn #2 pending cultures -f.u cx -Monitor CBC/CMP, temperatures -legionella ag urince -PEG/Trach care -CBC, CMP am Thank you for this consultation. Will continue to follow along with you. Renae Conteh M.D. Feb 25, 2019 12:26
--- NOTE | 2019-02-25 15:57 | NUR ---
NURSE NOTES:WOUND CARE NOTES:Pt presented on admission with unstageable wound L earlobe.Wound has 95% soft necrosis ,5% viable. (L)2.5cm x (W)0.7cm. Periwound earlobe extending into ear canal has darker than is normal skin tone. Full thickness sacral pressure injury with 10% slough otherwise wound is viable with measureable depth at coccyx. Pt flinches each time area is minimally palpated. (L)2.5cm x (W)7.5cm x (D)0.4cm.Edges of wound macerated. Erythema periwound. Bilat heels firm and easily blanchable. Tx.PLan:Cleanse Sacral wound with Saline. Apply Therahoney .Apply Triad periwound.Cover with Optifoam drsg .Change Daily and prn. Cleanse L ear with Saline. Apply Therahoney. Cover with Optifoam drsg .Change Daily and prn. Apply Cavilon to both heels .Cover each heel with Optifoam drsg. Change every 7 days and prn. Please maintain Foam Mold around L ear to reduce pressure from ear. Reposition at least every 22hours or as tolerated. Off-load heels with Pillow. APM/SYLVIA mattress.
--- NOTE | 2019-02-25 16:51 | General Progress Note ---
Assessment/Plan Assessment/Plan Assessment and Recs # Anemia of chronic disease (or of iron deficiency) due to underlying chronic medical issues, multifactorial --> Anemia workup has been ordered --> No evidence of hemolysis is noted, peripheral smear has been reviewed. --> Hgb goal >7. Transfuse prn. --> Epogen or iron at this time is not particularly indicated --> Medications have been reviewed --> evaluate with Gi team prn # Leukocytosis/Elevated white blood cell count, unspecified likely related to underlying stress reaction, smoking v more likely infection --> have reviewed peripheral smear and bandemia/neutrophilia noted --> continue antibiotics if they have been started by ID team --> monitor for resolution on cxr for pna --> trend wbc 18k-->12.5k # Thrombocytosis again similar to above --> likely related to infection, monitor for resolution # Transaminitis/elevated lffts # Chronic respiratory failure s/p trach/vent # Dysphagia is s/p PEG # Anxiety # Schizoaffective disorder # [facility] resident The timing of this note does not necessarily reflect the time of the patient was seen. Greatly appreciate consultation! Subjective Constitutional: Denies: no symptoms, chills, diaphoresis, fever, malaise, weakness, other HEENT: Denies: no symptoms, eye pain, blurred vision, tearing, double vision, ear pain, ear discharge, nose pain, nose congestion, throat pain, throat swelling, mouth pain, mouth swelling, other Cardiovascular: Denies: no symptoms, chest pain, edema, irregular heart rate, lightheadedness, palpitations, syncope, other Respiratory: Denies: no symptoms, cough, orthopnea, shortness of breath, SOB with excertion, SOB at rest, sputum, stridor, wheezing, other Endocrine: Denies: no symptoms, excessive sweating, flushing, intolerance to cold, intolerance to heat, increased hunger, increased thirst, increased urine, unexplained weight gain, unexplained weight loss, other Hematologic/Lymphatic: Denies: no symptoms, anemia, easy bleeding, easy bruising, other Allergies: Coded Allergies: DIPHENHYDRAMINE (Verified Allergy, Unknown, 02/24/19) FLUPHENAZINE (Verified Allergy, Unknown, 02/24/19) Subjective 02/25: no events, on abx, is in the sdu, will be getting prbc transfusion today Objective Last 24 Hour Vital Signs Date Time Temp Pulse Resp B/P (MAP) Pulse Ox O2 Delivery O2 Flow Rate FiO2 02/25/19 16:00 45 02/25/19 16:00 98.1 83 18 106/65 (79) 97 02/25/19 15:17 75 19 45 02/25/19 13:15 75 17 45 02/25/19 12:00 Mechanical Ventilator 02/25/19 12:00 98.8 78 18 94/59 (71) 97 02/25/19 12:00 45 02/25/19 11:42 74 02/25/19 11:23 79 15 45 02/25/19 10:36 78 02/25/19 09:20 69 14 45 02/25/19 08:00 Mechanical Ventilator 02/25/19 08:00 45 02/25/19 08:00 97.7 75 15 116/70 (85) 100 02/25/19 06:57 76 16 45 02/25/19 06:30 72 17 117/69 (85) 100 02/25/19 06:00 72 15 104/59 (74) 100 02/25/19 05:10 67 14 45 02/25/19 05:00 72 15 98/54 (69) 99 02/25/19 04:00 98.0 77 16 112/63 (79) 100 02/25/19 04:00 45 02/25/19 04:00 Mechanical Ventilator 02/25/19 04:00 72 02/25/19 03:00 70 16 109/58 (75) 100 02/25/19 02:55 69 15 45 02/25/19 02:00 71 17 111/69 (83) 100 02/25/19 01:00 69 17 45 02/25/19 01:00 69 17 111/69 (83) 100 02/25/19 00:00 97.9 71 18 108/68 (81) 100 02/25/19 00:00 71 02/25/19 00:00 45 02/25/19 00:00 Mechanical Ventilator 02/24/19 23:00 73 18 128/84 (99) 100 02/24/19 22:56 71 22 45 02/24/19 22:00 69 17 105/63 (77) 100 02/24/19 21:00 68 17 105/63 (77) 100 02/24/19 20:50 70 16 45 02/24/19 20:00 70 16 108/67 (81) 100 02/24/19 20:00 Mechanical Ventilator 02/24/19 20:00 45 02/24/19 20:00 71 02/24/19 19:02 84 20 45 02/24/19 19:00 98.0 74 14 115/72 (86) 100 02/24/19 18:04 80 14 121/73 (89) 100 02/24/19 17:47 Mechanical Ventilator 02/24/19 17:29 86 15 45 02/24/19 17:01 87 27 114/68 (83) 99 Intake and Output 02/24/19 02/25/19 18:59 06:59 Intake Total 1762.5 ml 2027.500 ml Output Total 30 ml 1050 ml Balance 1732.5 ml 977.500 ml Intake Free Water 160 ml IV Total 1762.5 ml 1557.500 ml Tube Feeding 310 ml Output Urine Total 30 ml 1050 ml # Bowel Movements 2 1 Laboratory Tests 02/25/19 02:30: Stool Occult Blood Negative 02/25/19 04:25: White Blood Count 12.5H, Red Blood Count 2.90L, Hemoglobin 7.5L, Hematocrit 24.8L, Mean Corpuscular Volume 86, Mean Corpuscular Hemoglobin 26.0L, Mean Corpuscular Hemoglobin Concent 30.4L, Red Cell Distribution Width 15.9H, Platelet Count 492H, Mean Platelet Volume 5.4L, Neutrophils (%) (Auto) , Lymphocytes (%) (Auto) , Monocytes (%) (Auto) , Eosinophils (%) (Auto) , Basophils (%) (Auto) , Differential Total Cells Counted 100, Neutrophils % ( Manual) 91H, Lymphocytes % (Manual) 7L, Monocytes % (Manual) 2, Eosinophils % ( Manual) 0, Basophils % (Manual) 0, Band Neutrophils 0, Other Cell Type Pathologist review, Platelet Estimate Adequate, Platelet Morphology Normal, Polychromasia 1+, Anisocytosis 1+, Erythrocyte Sedimentation Rate 127H, Reticulocyte Count 1.3, Prothrombin Time 11.3, Prothromb Time International Ratio 1.1, Activated Partial Thromboplast Time 26, Sodium Level 143, Potassium Level 3.7, Chloride Level 108H, Carbon Dioxide Level 29, Anion Gap 6, Blood Urea Nitrogen 20H, Creatinine 0.4L, Estimat Glomerular Filtration Rate > 60, Glucose Level 191H, Hemoglobin A1c 7.2H, Calcium Level 11.0H, Iron Level 46L, Total Iron Binding Capacity 183L, Percent Iron Saturation 25, Unsaturated Iron Binding 137, Lactate Dehydrogenase 153, Carcinoembryonic Antigen [Pending], Vitamin B12 Level > 2000H, Folate 17.3 Height (Feet): 5 Height (Inches): 6.00 Weight (Pounds): 175 Objective Sp02 EP Interpretation: reviewed, normal General Appearance: alert, Chronically Ill Head: normocephalic, atraumatic Eyes: bilateral eye normal inspection, bilateral eye PERRL, bilateral eye EOMI ENT: moist mucus membranes Neck: supple, ++ tracheotomy Respiratory: rales, rhonchi, wheezing, expiration, other - Thick secretions Cardiovascular: tachycardia, edema Gastrointestinal: soft, decreased bowel sounds ++ peg Musculoskeletal: swelling Neurologic: responsive, palliative senior np III-XII nml as tested, motor weakness - R hemiparesis, flaccid L upper arm, able to move L foot, sensory deficit Tod Bradley MD Feb 25, 2019 16:51
--- NOTE | 2019-02-25 19:00 | NUR ---
NURSE NOTES: called Dr Dinero re no consent for bld transfusion,awaiting return of call.
--- NOTE | 2019-02-25 19:31 | NUR ---
HAND-OFF: Report given to Aleshia Villa RN..
--- NOTE | 2019-02-25 19:32 | NUR ---
NURSE NOTES: Received a bedside report from DB Kaur.Patient has no respiratory distress,no s/s of pain SR on cardiac cath technician,open eyes,blinking,Trach Portex 7 AC 14 TV 450 FiO2 45% PEEP 5,GT in place running @ 50 ml/hr,no residual,BS active in all quadrants,f/cath in place running toward gravity,pt on P 200 mattress,IV asymptomatic,intact on R hand G 18 and L wrist G 22 running w/D 5 1/2 NS@ 100ml/hr,sacral wound dressing changed by wound care nurse.Will continue to monitor and follow POC.
--- NOTE | 2019-02-25 19:48 | NUR ---
NURSE NOTES: Called to clarify parameter to transfuse blood.Waiting for Dr's respond.Charge nurse aware.
--- NOTE | 2019-02-25 20:37 | NUR ---
NURSE NOTES: Called to verify parameters and to put an emergency note to transfuse blood d/t conservatory not available.Change nurse aware
--- NOTE | 2019-02-25 21:17 | General Progress Note ---
Progress Note Progress Note Pt is critically ill and needs blood transfusion urgently. She is competent to sign any consent. there is only public guardian who recommended that two physicians could sign the consent in case of emergency. Rula Corrigan MD Feb 25, 2019 21:16
--- NOTE | 2019-02-25 21:30 | NUR ---
NURSE NOTES: Informed nursing sports equipment supervisor regarding patient's consent, never responding, said that note is there,still not able to find doctor's note and not able to transfuse blood.
[2019-02-26] VITALS: BP 112/77
--- NOTE | 2019-02-26 00:30 | NUR ---
NURSE NOTES: Primary physician, is OK to not to give blood transfusion since pt's Hgb 7.5 no critical,he state that patient stable,V/S WNL,no s/s of bleeding,no respiratory distress noted.'s notes to maintain to keep Hgb goal up to 7.0.Charge nurse aware,will continue to monitor patient.
[2019-02-26] MEDS: D5 1/2NS 1,000 ML IV SCH ×2 (01:31→18:13)
--- NOTE | 2019-02-26 03:45 | History and Physical Report ---
DATE OF ADMISSION: 02/24/2019 NOTE: POOR AUDIO REASON FOR ADMISSION: Admission to [facility] of this 68-year-old woman because of right lower lobe pneumonia. HISTORY OF PRESENT ILLNESS: The patient is a resident of an extended care facility subacute unit. She has been in stable condition. Over the last several weeks, she was stable on current medication prior to admission. altered mental status. The patient in the emergency room in this hospital, started on Zosyn and Levaquin. The patient was transferred to the intensive care unit. PAST MEDICAL HISTORY: . FAMILY HISTORY: Noncontributory. SOCIAL HISTORY: She is . . HABITS: The patient did not smoke. REVIEW OF SYSTEMS: . PHYSICAL EXAMINATION: VITAL SIGNS: Blood pressure 121/73, pulse is 90, respirations of 14, temperature 97.8. HEENT: Eyes were normal. Pupils were round, equal, and reactive to light. Sclerae were white. Conjunctiva was pink. Extraocular movements were normal. Temporal arteries were palpable bilaterally. There was no bilateral temporal wasting. Visual lawrence to confrontation were normal, and sign was negative. ENT, mucous membranes were not dehydrated. Auditory canals were clear and tympanic membranes could not be visualized. Nasal cavity was not congested. Nasal septum was intact. Soft palate was free of ulcerations. Pharynx was clear from exudate or tonsillar hypertrophy. Uvula rafia to phonation. Tongue was moist, midline, and normally papillated. NECK: Supple. There was no goiter. No mass. No lymphadenopathy. There was no JVD, no bruits. Carotid upstroke was 2+. LUNGS: Clear. HEART: PMI was in the fourth left intercostal space in the midclavicular line. There was normal S1 and normal S2. There was no murmur. No arrhythmia. No S3. No S4. No pericardial rub. ABDOMEN: Soft and nontender without organomegaly. There were no masses palpable. Normal bowel sounds without bruits. There was no guarding. No rebound tenderness. No ascites. No hernia. No CVA tenderness. Liver span was 8 cm, mostly nontender. EXTREMITIES: No cyanosis, no clubbing, and no edema. Extremities were warm. NEUROLOGICAL: Reflexes in biceps, triceps, and brachioradialis were symmetric and equal. Cranial nerves II through XII were symmetric and equal. Cerebellar function, there was no tremor. No nystagmus. No extrapyramidal rigidity. Sensory exam to pinprick, cotton touch, and position was grossly normal. Motor strength was 5/5 against resistance in upper and lower extremities in proximal . LABORATORY AND DIAGNOSTIC DATA: Hemoglobin is 9.2, hematocrit was 30.2 with MCV of 94, WBC of 17.9, and platelets is 617,000. Her BUN and creatinine is 27 and 0.4 respectively. Her BUN and creatinine is 27 and 0.4. Sodium is 142, potassium 4.4, chloride 104, . IMPRESSION: The patient was found to have right lower lobe pneumonia. Pulmonary consulted and Infectious Disease consult was called to assist in the management of this case. Repeat laboratory tests will be done in the a.m. Bassem Bruce M.D. DR: RICHAR JOB#: [id number] CC:
[2019-02-26 04:00] VITALS: BP 141/85
[2019-02-26 04:34] LABS: BASOPHILS % (AUTO) 0.3 % (0.0-2.0); EOSINOPHILS % (AUTO) 2.3 % (0.0-3.0); HEMATOCRIT 28.3 % (37.0-47.0); HEMOGLOBIN 8.6 G/DL (12.0-16.0); LYMPHOCYTES % (AUTO) 13.1 % (20.0-45.0); MEAN CORPUSCULAR VOLUME 85 FL (80-99); MONOCYTES % (AUTO) 4.5 % (1.0-10.0); NEUTROPHILS % (AUTO) 79.8 % (45.0-75.0); PLATELET COUNT 531 K/UL (150-450); RED BLOOD COUNT 3.33 M/UL (4.20-5.40); RED CELL DISTRIBUTION WIDTH 16.2 % (11.6-14.8); WHITE BLOOD COUNT 13.6 K/UL (4.8-10.8)
[2019-02-26 05:03] LABS: PHOSPHORUS 1.8 MG/DL (2.5-4.9)
[2019-02-26 05:06] LABS: ALANINE AMINOTRANSFERASE 104 U/L (12-78); ALBUMIN/GLOBULIN RATIO 0.4 (1.0-2.7); ALKALINE PHOSPHATASE 141 U/L (46-116); ANION GAP 7 mmol/L (5-15); ASPARTATE AMINO TRANSFERASE 51 U/L (15-37); BILIRUBIN,TOTAL < 0.1 MG/DL (0.2-1.0); BLOOD UREA NITROGEN 16 mg/dL (7-18); CALCIUM 11.1 MG/DL (8.5-10.1); CARBON DIOXIDE 31 MMOL/L (21-32); CHLORIDE 109 MMOL/L (98-107); CREATININE 0.4 MG/DL (0.55-1.30); POTASSIUM 3.7 MMOL/L (3.5-5.1); SODIUM 147 MMOL/L (136-145)
[2019-02-26] MEDS: Piperacillin/Tazobactam 3.375 GM in D5W 110 ML IVPB SCH ×3 (05:09→22:29)
[2019-02-26] MEDS: Vancomycin 1gm/D5W 275ml IVPB SCH ×4 (06:56→18:13)
--- NOTE | 2019-02-26 07:10 | NUR ---
HAND-OFF: Report given to DB Kaur.Patient stable.
--- NOTE | 2019-02-26 07:15 | NUR ---
NURSE NOTES: Report received from Aleshia Villa RN.Pt resting in bed asleep noted no resp distress with trach tube to vent ,on current settings,tolerating well,no signs of pain or discomfort,SR on the monitor,GTF 2 ARGENIS at 50 ml/hr, no residual noted,Cormier cath to BSD draining yellow urine,IV sites to LW and RH intact with IVF D51/2 NS at 100 ml/hr,skin warm and sry,SR up x2 HOB elevated ,bed lock in lowest position ,will continue with plans of care.
--- NOTE | 2019-02-26 07:20 | NUR ---
RESPIRATORY NOTE: Recieved pt on current vent settings: AC 14 450 45% +5. Pt margarita current vent settings well. Vent plugged into red outlet. Alarms are on, audible, and functioning. Trach secure and patent. Ambu bag and spare trach at bedside. Sx large thick white/yellow/klein secretions. Will continue monitoring pt.
[2019-02-26 08:00] VITALS: BP 138/78
--- NOTE | 2019-02-26 08:27 | Infectious Diseases Prog Note ---
Assessment/Plan Assessment/Plan Abx: IV Vancomycin 02/24- Zosyn 02/24- CEfepime x1 02/24 Levaquin x1 02/24 Assessment: Sepsis 2ryt o Probable PNA and UTI -CXR: Diffuse opacity projected over the left hemithorax. Suspect pleural disease either pleural effusion or pleural thickening. Difficult to exclude underlying parenchymal disease. -sp cx GNR -u/a wbc 10-15, nit neg, leuk +3; ucx p -influenza sc neg Afebrile Leukocytosis, improving Elevated LFTs chronic respiratory failure s/p trach/vent PEG anxiety schizoaffective disorder shelter resident Plan: -Continue empiric IV Vancomycin and Zosyn #3 pending cultures -f.u cx -Monitor CBC/CMP, temperatures -legionella ag urince -PEG/Trach care -CBC, CMP am Will continue to follow along with you. Subjective Allergies: Coded Allergies: DIPHENHYDRAMINE (Verified Allergy, Unknown, 02/24/19) FLUPHENAZINE (Verified Allergy, Unknown, 02/24/19) Subjective Afebrile Generally decreasing WBCs Sputm Cx growing GNR Objective Vital Signs Last 24 Hour Vital Signs Date Time Temp Pulse Resp B/P (MAP) Pulse Ox O2 Delivery O2 Flow Rate FiO2 02/26/19 05:11 89 16 45 45 02/26/19 04:00 45 02/26/19 04:00 Mechanical Ventilator 02/26/19 04:00 98.4 89 17 141/85 (103) 97 02/26/19 04:00 85 02/26/19 02:56 82 16 45 45 02/26/19 01:17 88 20 45 45 02/26/19 00:00 98.7 87 17 112/77 (89) 99 02/26/19 00:00 86 02/26/19 00:00 45 02/26/19 00:00 Mechanical Ventilator 02/25/19 23:29 88 16 45 45 02/25/19 21:06 88 14 45 45 02/25/19 20:00 98.7 92 18 112/69 (83) 98 02/25/19 20:00 45 02/25/19 20:00 Mechanical Ventilator 02/25/19 19:44 88 02/25/19 19:29 90 16 45 45 02/25/19 17:23 87 17 45 02/25/19 16:00 Mechanical Ventilator 02/25/19 16:00 45 02/25/19 16:00 85 02/25/19 16:00 98.1 83 18 106/65 (79) 97 02/25/19 15:17 75 19 45 02/25/19 13:15 75 17 45 02/25/19 12:00 Mechanical Ventilator 02/25/19 12:00 98.8 78 18 94/59 (71) 97 02/25/19 12:00 45 02/25/19 11:42 74 02/25/19 11:23 79 15 45 02/25/19 10:36 78 02/25/19 09:20 69 14 45 Height (Feet): 5 Height (Inches): 6.00 Weight (Pounds): 175 Objective General. NAD, On vent 45% HEENT: NCAT, MMM, PERRL, Trached Respiratory/Chest: Course B/L Cardiovascular/Chest: RR, S1, S2, Abdomen: normal bowel sounds, Not distended Microbiology Date/Time Source Procedure Growth Status 02/24/19 08:49 Blood Blood Culture - Preliminary NO GROWTH AFTER 24 HOURS Resulted 02/24/19 08:40 Blood Blood Culture - Preliminary NO GROWTH AFTER 24 HOURS Resulted 02/25/19 01:00 Sputum Gram Stain - Final Resulted 02/25/19 01:00 Sputum Culture - Preliminary Gram Negative Bacillus 1 Resulted 02/24/19 09:45 Nasal Nares MRSA Culture - Final NO METHICILLIN RESISTANT STAPH AUREUS... Complete 02/24/19 08:55 Nasal Nares Influenza Types A,B Antigen (PAUL) - Final Complete 02/24/19 08:40 Urine,Clean Catch Urine Culture - Preliminary NO GROWTH Resulted Laboratory Tests Test 02/26/19 04:15 White Blood Count 13.6 K/UL (4.8-10.8) H Red Blood Count 3.33 M/UL (4.20-5.40) L Hemoglobin 8.6 G/DL (12.0-16.0) L Hematocrit 28.3 % (37.0-47.0) L Mean Corpuscular Volume 85 FL (80-99) Mean Corpuscular Hemoglobin 25.7 PG (27.0-31.0) L Mean Corpuscular Hemoglobin Concent 30.3 G/DL (32.0-36.0) L Red Cell Distribution Width 16.2 % (11.6-14.8) H Platelet Count 531 K/UL (150-450) H Mean Platelet Volume 5.1 FL (6.5-10.1) L Neutrophils (%) (Auto) 79.8 % (45.0-75.0) H Lymphocytes (%) (Auto) 13.1 % (20.0-45.0) L Monocytes (%) (Auto) 4.5 % (1.0-10.0) Eosinophils (%) (Auto) 2.3 % (0.0-3.0) Basophils (%) (Auto) 0.3 % (0.0-2.0) Erythrocyte Sedimentation Rate 117 MM/HR (0-30) H Sodium Level 147 MMOL/L (136-145) H Potassium Level 3.7 MMOL/L (3.5-5.1) Chloride Level 109 MMOL/L (98-107) H Carbon Dioxide Level 31 MMOL/L (21-32) Anion Gap 7 mmol/L (5-15) Blood Urea Nitrogen 16 mg/dL (7-18) Creatinine 0.4 MG/DL (0.55-1.30) L Estimat Glomerular Filtration Rate > 60 mL/min (>60) Glucose Level 174 MG/DL (74-106) H Calcium Level 11.1 MG/DL (8.5-10.1) H Phosphorus Level 1.8 MG/DL (2.5-4.9) L Magnesium Level 2.0 MG/DL (1.8-2.4) Total Bilirubin < 0.1 MG/DL (0.2-1.0) L Aspartate Amino Transf (AST/SGOT) 51 U/L (15-37) H Alanine Aminotransferase (ALT/SGPT) 104 U/L (12-78) H Alkaline Phosphatase 141 U/L (46-116) H C-Reactive Protein, Quantitative 2.6 mg/dL (0.00-0.90) H Total Protein 7.6 G/DL (6.4-8.2) Albumin 2.0 G/DL (3.4-5.0) L Globulin 5.6 g/dL Albumin/Globulin Ratio 0.4 (1.0-2.7) L Vancomycin Level Trough 10.0 ug/mL (5.0-12.0) Current Medications Medications (Trade) Dose Ordered Sig/Lavon Route PRN Reason Start Time Stop Time Status Last Admin Dose Admin Dextrose/Sodium Chloride 1,000 ml @ 100 mls/hr Q10H IV 02/24/19 16:00 03/26/19 15:59 02/26/19 01:31 Heparin Sodium (Porcine) (Heparin 5000 units/ml) 5,000 units EVERY 12 HOURS SUBQ 02/24/19 21:00 03/26/19 20:59 02/25/19 21:26 Pantoprazole (Protonix) 40 mg DAILY IVP 02/25/19 09:00 03/27/19 08:59 02/25/19 09:04 Piperacillin Sod/ Tazobactam Sod 3.375 gm/Dextrose 110 ml @ 27.5 mls/hr Q8HR IVPB 02/24/19 18:00 03/03/19 17:59 02/26/19 05:09 Vancomycin HCl (Vanco rx to dose) 1 ea DAILY PRN MISC Per rx protocol 02/24/19 16:00 03/26/19 15:59 Vancomycin HCl 1 gm/Dextrose 275 ml @ 183.708 mls/hr Q12H IVPB 02/26/19 06:00 03/03/19 05:59 02/26/19 06:56 Chadwick Keith MD Feb 26, 2019 08:26
[2019-02-26] MEDS: Pantoprazole Inj IVP SCH (08:40)
[2019-02-26] MEDS: Heparin 5000 units/ml inj SUBQ SCH ×2 (08:42→20:41)
[2019-02-26 12:00] VITALS: BP 124/70
--- NOTE | 2019-02-26 12:00 | NUR ---
NURSE NOTES: pt stable,oral care done ,tracheal secretions suctioned PRN,turned and repositioned to rt side.
--- NOTE | 2019-02-26 12:27 | Pulmonolgy Critical Care Note ---
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, 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 Discussed with: nurses, consultants, rehabilitation case coordinatorreception manager - Objective Last 24 Hour Vital Signs Date Time Temp Pulse Resp B/P (MAP) Pulse Ox O2 Delivery O2 Flow Rate FiO2 02/26/19 12:00 45 02/26/19 12:00 Mechanical Ventilator 02/26/19 10:55 86 18 45 45 02/26/19 09:20 85 18 45 45 02/26/19 08:00 45 02/26/19 08:00 99.0 84 19 138/78 (98) 99 02/26/19 08:00 88 02/26/19 08:00 Mechanical Ventilator 02/26/19 07:20 89 17 45 45 02/26/19 05:11 89 16 45 45 02/26/19 04:00 45 02/26/19 04:00 Mechanical Ventilator 02/26/19 04:00 98.4 89 17 141/85 (103) 97 02/26/19 04:00 85 02/26/19 02:56 82 16 45 45 02/26/19 01:17 88 20 45 45 02/26/19 00:00 98.7 87 17 112/77 (89) 99 02/26/19 00:00 86 02/26/19 00:00 45 02/26/19 00:00 Mechanical Ventilator 02/25/19 23:29 88 16 45 45 02/25/19 21:06 88 14 45 45 02/25/19 20:00 98.7 92 18 112/69 (83) 98 02/25/19 20:00 45 02/25/19 20:00 Mechanical Ventilator 02/25/19 19:44 88 02/25/19 19:29 90 16 45 45 02/25/19 17:23 87 17 45 02/25/19 16:00 Mechanical Ventilator 02/25/19 16:00 45 02/25/19 16:00 85 02/25/19 16:00 98.1 83 18 106/65 (79) 97 02/25/19 15:17 75 19 45 02/25/19 13:15 75 17 45 Status: awake Condition: critical, improving Heart: HR/BP stable, HR/BP unstable Abdomen: non-tender, feeding tube Extremities: no C/C/E Micro: Microbiology Date/Time Source Procedure Growth Status 02/24/19 08:49 Blood Blood Culture - Preliminary NO GROWTH AFTER 24 HOURS Resulted 02/24/19 08:40 Blood Blood Culture - Preliminary NO GROWTH AFTER 24 HOURS Resulted 02/25/19 01:00 Sputum Gram Stain - Final Resulted 02/25/19 01:00 Sputum Culture - Preliminary Gram Negative Bacillus 1 Resulted 02/24/19 09:45 Nasal Nares MRSA Culture - Final NO METHICILLIN RESISTANT STAPH AUREUS... Complete 02/24/19 08:55 Nasal Nares Influenza Types A,B Antigen (PAUL) - Final Complete 02/24/19 08:40 Urine,Clean Catch Urine Culture - Final NO GROWTH AFTER 48 HOURS Complete 02/24/19 09:45 Rectum VRE Culture - Final Enterococcus Faecalis - Vre Complete 02/24/19 09:45 Rectum - Final NO CARBAPENEM-RESISTANT ENTEROBACTERI... Complete Accucheck: 171 Critical Care - Subjective ROS Limited/Unobtainable: Yes FI02: 45 Vent Support Breath Rate: 14 Vent Support Mode: AC Vent Tidal Volume: 450 Sputum Amount: Moderate PEEP: 5.0 PIP: 25 Tube Feeding Amount: 50 I&O: Intake and Output 02/25/19 02/26/19 19:00 07:00 Intake Total 1702.5 ml 1733.50 ml Output Total 1000 ml 650 ml Balance 702.5 ml 1083.50 ml Intake Free Water 200 ml 100 ml IV Total 882.5 ml 1083.50 ml Tube Feeding 500 ml 550 ml Other 120 ml Output Urine Total 1000 ml 650 ml # Bowel Movements 2 Labs: Laboratory Tests Test 02/26/19 04:15 White Blood Count 13.6 K/UL (4.8-10.8) H Red Blood Count 3.33 M/UL (4.20-5.40) L Hemoglobin 8.6 G/DL (12.0-16.0) L Hematocrit 28.3 % (37.0-47.0) L Mean Corpuscular Volume 85 FL (80-99) Mean Corpuscular Hemoglobin 25.7 PG (27.0-31.0) L Mean Corpuscular Hemoglobin Concent 30.3 G/DL (32.0-36.0) L Red Cell Distribution Width 16.2 % (11.6-14.8) H Platelet Count 531 K/UL (150-450) H Mean Platelet Volume 5.1 FL (6.5-10.1) L Neutrophils (%) (Auto) 79.8 % (45.0-75.0) H Lymphocytes (%) (Auto) 13.1 % (20.0-45.0) L Monocytes (%) (Auto) 4.5 % (1.0-10.0) Eosinophils (%) (Auto) 2.3 % (0.0-3.0) Basophils (%) (Auto) 0.3 % (0.0-2.0) Erythrocyte Sedimentation Rate 117 MM/HR (0-30) H Sodium Level 147 MMOL/L (136-145) H Potassium Level 3.7 MMOL/L (3.5-5.1) Chloride Level 109 MMOL/L (98-107) H Carbon Dioxide Level 31 MMOL/L (21-32) Anion Gap 7 mmol/L (5-15) Blood Urea Nitrogen 16 mg/dL (7-18) Creatinine 0.4 MG/DL (0.55-1.30) L Estimat Glomerular Filtration Rate > 60 mL/min (>60) Glucose Level 174 MG/DL (74-106) H Calcium Level 11.1 MG/DL (8.5-10.1) H Phosphorus Level 1.8 MG/DL (2.5-4.9) L Magnesium Level 2.0 MG/DL (1.8-2.4) Total Bilirubin < 0.1 MG/DL (0.2-1.0) L Aspartate Amino Transf (AST/SGOT) 51 U/L (15-37) H Alanine Aminotransferase (ALT/SGPT) 104 U/L (12-78) H Alkaline Phosphatase 141 U/L (46-116) H C-Reactive Protein, Quantitative 2.6 mg/dL (0.00-0.90) H Total Protein 7.6 G/DL (6.4-8.2) Albumin 2.0 G/DL (3.4-5.0) L Globulin 5.6 g/dL Albumin/Globulin Ratio 0.4 (1.0-2.7) L Vancomycin Level Trough 10.0 ug/mL (5.0-12.0) Rula Corrigan MD Feb 26, 2019 12:27
[2019-02-26 16:00] VITALS: BP 124/74
--- NOTE | 2019-02-26 16:04 | NUR ---
CASE MANAGEMENT: REVIEW SI: SEPSIS . PNA . ARF . FUNCTIONAL QUADRIPLEGIA T 98.8 HR 85 RR 15 BP 124/70 SAT 99% MECH VENT FIO2 45 WBC 13.6 H/H 8.6/28.3 NA 147 IS: VANCO IV Q12HR ZOSYN IV Q8HR D5 1/2 NS IVF @100ML/HR 1 UNIT PRBC STEP DOWN UNIT STATUS DCP: PATIENT IS FROM [facility]
--- NOTE | 2019-02-26 17:04 | Consultation ---
History of Present Illness General Chief Complaint: Altered Level of Consciousness Present Illness HPI 68 year old female correction resident with multiple medical comorbidities currently admitted for care and management after episodes of ACLS at correction. was revived after CPR initiated and [place] by [place] [facility] noted to have multiple wounds. surgery called to evaluate and assist with care and management. patient seen, chart reviewed, patient examined. Allergies: Coded Allergies: DIPHENHYDRAMINE (Verified Allergy, Unknown, 02/24/19) FLUPHENAZINE (Verified Allergy, Unknown, 02/24/19) Medication History Scheduled Amlodipine Besylate (Norvasc), 5 MG GT DAILY, (Reported) Ascorbic Acid* (Vitamin C*), 500 MG GT DAILY, (Reported) Atorvastatin Calcium* (Lipitor*), 10 MG GT DAILY, (Reported) Clonazepam* (Klonopin*), 0.5 MG ORAL Q12HR, (Reported) Docusate Sodium* (Colace*), 100 MG GT DAILY, (Reported) Enoxaparin* (Lovenox*), 40 MG SUBQ DAILY, (Reported) Famotidine (Famotidine), 20 MG GT DAILY, (Reported) Multivitamins* (Multivitamins*), 1 TAB GT DAILY, (Reported) Zinc Sulfate (Zinc Sulfate*), 220 MG GT DAILY, (Reported) Scheduled PRN Acetaminophen (Tylenol), 325 MG GT Q4HR PRN for Prn Pain/Headache/Temp > 101, ( Reported) Patient History Limited by: medical condition History Provided By: Medical Record, PMD Healthcare decision maker unable to obtain Resuscitation status Full Code Advanced Directive on File Past Medical/Surgical History Past Medical/Surgical History: (1) UTI (urinary tract infection) (2) Functional quadriplegia (3) Pneumonia involving left lung (4) Chronic respiratory failure (5) Acute and chronic respiratory failure (6) Feeding by G-tube (7) Severe anemia (8) Sepsis Review of Systems ROS Narrative cannot obtain given medical condition Physical Exam General Appearance: no apparent distress Lines, tubes and drains: peripheral, other HEENT: mucous membranes moist Neck: normal inspection, trach Respiratory/Chest: no accessory muscle use, decreased breath sounds Cardiovascular/Chest: normal rate Abdomen: soft, no organomegaly, no mass, other Extremities: other Skin Exam: other Last 24 Hour Vital Signs Date Time Temp Pulse Resp B/P (MAP) Pulse Ox O2 Delivery O2 Flow Rate FiO2 02/26/19 15:04 88 17 45 45 02/26/19 13:00 87 20 45 45 02/26/19 12:00 45 02/26/19 12:00 90 02/26/19 12:00 Mechanical Ventilator 02/26/19 12:00 98.8 85 15 124/70 (88) 99 02/26/19 10:55 86 18 45 45 02/26/19 09:20 85 18 45 45 02/26/19 08:00 45 02/26/19 08:00 99.0 84 19 138/78 (98) 99 02/26/19 08:00 88 02/26/19 08:00 Mechanical Ventilator 02/26/19 07:20 89 17 45 45 02/26/19 05:11 89 16 45 45 02/26/19 04:00 45 02/26/19 04:00 Mechanical Ventilator 02/26/19 04:00 98.4 89 17 141/85 (103) 97 02/26/19 04:00 85 02/26/19 02:56 82 16 45 45 02/26/19 01:17 88 20 45 45 02/26/19 00:00 98.7 87 17 112/77 (89) 99 02/26/19 00:00 86 02/26/19 00:00 45 02/26/19 00:00 Mechanical Ventilator 02/25/19 23:29 88 16 45 45 02/25/19 21:06 88 14 45 45 02/25/19 20:00 98.7 92 18 112/69 (83) 98 02/25/19 20:00 45 02/25/19 20:00 Mechanical Ventilator 02/25/19 19:44 88 02/25/19 19:29 90 16 45 45 02/25/19 17:23 87 17 45 Intake and Output 02/25/19 02/26/19 18:59 06:59 Intake Total 1682.5 ml 1883.50 ml Output Total 75 ml 1650 ml Balance 1607.5 ml 233.50 ml Intake Free Water 200 ml 100 ml IV Total 882.5 ml 1183.50 ml Tube Feeding 480 ml 600 ml Other 120 ml Output Urine Total 75 ml 1650 ml # Bowel Movements 2 Laboratory Tests Test 02/26/19 04:15 White Blood Count 13.6 K/UL (4.8-10.8) H Red Blood Count 3.33 M/UL (4.20-5.40) L Hemoglobin 8.6 G/DL (12.0-16.0) L Hematocrit 28.3 % (37.0-47.0) L Mean Corpuscular Volume 85 FL (80-99) Mean Corpuscular Hemoglobin 25.7 PG (27.0-31.0) L Mean Corpuscular Hemoglobin Concent 30.3 G/DL (32.0-36.0) L Red Cell Distribution Width 16.2 % (11.6-14.8) H Platelet Count 531 K/UL (150-450) H Mean Platelet Volume 5.1 FL (6.5-10.1) L Neutrophils (%) (Auto) 79.8 % (45.0-75.0) H Lymphocytes (%) (Auto) 13.1 % (20.0-45.0) L Monocytes (%) (Auto) 4.5 % (1.0-10.0) Eosinophils (%) (Auto) 2.3 % (0.0-3.0) Basophils (%) (Auto) 0.3 % (0.0-2.0) Erythrocyte Sedimentation Rate 117 MM/HR (0-30) H Sodium Level 147 MMOL/L (136-145) H Potassium Level 3.7 MMOL/L (3.5-5.1) Chloride Level 109 MMOL/L (98-107) H Carbon Dioxide Level 31 MMOL/L (21-32) Anion Gap 7 mmol/L (5-15) Blood Urea Nitrogen 16 mg/dL (7-18) Creatinine 0.4 MG/DL (0.55-1.30) L Estimat Glomerular Filtration Rate > 60 mL/min (>60) Glucose Level 174 MG/DL (74-106) H Calcium Level 11.1 MG/DL (8.5-10.1) H Phosphorus Level 1.8 MG/DL (2.5-4.9) L Magnesium Level 2.0 MG/DL (1.8-2.4) Total Bilirubin < 0.1 MG/DL (0.2-1.0) L Aspartate Amino Transf (AST/SGOT) 51 U/L (15-37) H Alanine Aminotransferase (ALT/SGPT) 104 U/L (12-78) H Alkaline Phosphatase 141 U/L (46-116) H C-Reactive Protein, Quantitative 2.6 mg/dL (0.00-0.90) H Total Protein 7.6 G/DL (6.4-8.2) Albumin 2.0 G/DL (3.4-5.0) L Globulin 5.6 g/dL Albumin/Globulin Ratio 0.4 (1.0-2.7) L Vancomycin Level Trough 10.0 ug/mL (5.0-12.0) Height (Feet): 5 Height (Inches): 6.00 Weight (Pounds): 175 Medications Current Medications Medications (Trade) Dose Ordered Sig/Lavon Route PRN Reason Start Time Stop Time Status Last Admin Dose Admin Dextrose/Sodium Chloride 1,000 ml @ 100 mls/hr Q10H IV 02/24/19 16:00 03/26/19 15:59 02/26/19 01:31 Heparin Sodium (Porcine) (Heparin 5000 units/ml) 5,000 units EVERY 12 HOURS SUBQ 02/24/19 21:00 03/26/19 20:59 02/26/19 08:42 Pantoprazole (Protonix) 40 mg DAILY IVP 02/25/19 09:00 03/27/19 08:59 02/26/19 08:40 Piperacillin Sod/ Tazobactam Sod 3.375 gm/Dextrose 110 ml @ 27.5 mls/hr Q8HR IVPB 02/24/19 18:00 03/03/19 17:59 02/26/19 14:37 Vancomycin HCl (Vanco rx to dose) 1 ea DAILY PRN MISC Per rx protocol 02/24/19 16:00 03/26/19 15:59 Vancomycin HCl 1 gm/Dextrose 275 ml @ 183.708 mls/hr Q12H IVPB 02/26/19 06:00 03/03/19 05:59 02/26/19 06:56 Assessment/Plan Problem List: (1) Decubitus skin ulcer Assessment & Plan: Pt presented on admission with unstageable wound L earlobe.Wound has 95% soft necrosis ,5% viable. (L)2.5cm x (W)0.7cm. Periwound earlobe extending into ear canal has darker than is normal skin tone. Full thickness sacral pressure injury with 10% slough otherwise wound is viable with measureable depth at coccyx. Pt flinches each time area is minimally palpated. ( L)2.5cm x (W)7.5cm x (D)0.4cm.Edges of wound macerated. Erythema periwound. Bilat heels firm and easily blanchable. Tx.PLan: Cleanse Sacral wound with Saline. Apply Therahoney .Apply Triad periwound.Cover with Optifoam drsg .Change daily and prn. Cleanse L ear with Saline. Apply Therahoney. Cover with Optifoam drsg .Change Daily and prn. Apply Cavilon to both heels .Cover each heel with Optifoam drsg. Change every 7 days and prn. Please maintain Foam Mold around L ear to reduce pressure from ear. Reposition at least every 2 hours or as tolerated. Off-load heels with Pillow. APM/SYLVIA mattress. ICD Codes: L89.90 - Pressure ulcer of unspecified site, unspecified stage SNOMED: [id number] (2) Functional quadriplegia ICD Codes: R53.2 - Functional quadriplegia SNOMED: [id number] Levon Nunes Feb 26, 2019 17:04
--- NOTE | 2019-02-26 18:00 | NUR ---
NURSE NOTES: No change in pt's status,remains stable during the shift,bed abth given kept dry and clean.
[2019-02-26] MEDS ORDERED: Tubing IV Secondary IV ONE (18:52)
[2019-02-26] MEDS ORDERED: NS 275ml ONE (18:52)
[2019-02-26] MEDS ORDERED: D5 1/2NS 1000ml IV ONE (18:52)
--- NOTE | 2019-02-26 19:00 | Progress Note ---
DATE: 02/25/2019 SUBJECTIVE: The patient is awake, alert, afebrile, and hemodynamically stable. PHYSICAL EXAMINATION: VITAL SIGNS: Blood pressure 88, respirations of 16, and temperature 98.7. HEENT: Eyes were normal. ENT, mucous membranes were moist and intact. NECK: Supple with no JVD without lymph nodes. Tracheostomy site is clean. LUNGS: Clear without rhonchi, rales, or wheezing. . EXTREMITIES: Warm without cyanosis, clubbing, or edema. LABORATORY DATA: Hemoglobin is , hematocrit 34.9 with MCV of 26, WBC of 12.5, and platelets 427. Repeat laboratory tests will be done in the a.m. The patient is clinically and markedly improved. She is not obtunded. She has multiple facial expressions and body language communication. Repeat laboratory tests will be done in the a.m. Bassem Bruce M.D. DR: DEANNA JOB#: [id number] CC:
--- NOTE | 2019-02-26 19:40 | NUR ---
HAND-OFF: Report given to Claudine Hobbs RN.
--- NOTE | 2019-02-26 19:58 | NUR ---
RESPIRATORY NOTE: Received pt. on 840 vent. Vent settings are: A/C rate of 14, Vt 450, FI02 45%, PEEP +5. No respiratory distress noted, pt. Sp02 @ 100%. Ambu bag @ BS. Vent plugged on red outlet. Will continue to monitor pt.
[2019-02-26 20:00] VITALS: BP 124/84
--- NOTE | 2019-02-26 20:00 | NUR ---
NURSE NOTES: pt trach-vent o2 sat 99 0/0 no acute distress noted tolerating tube feeding n residual iv site good iv infusing well reposition and suction
[2019-02-27] VITALS: BP 111/70
[2019-02-27 04:00] VITALS: BP 101/64
[2019-02-27] MEDS: D5 1/2NS 1,000 ML IV SCH ×3 (04:00→22:22)
[2019-02-27] MEDS: Vancomycin 1gm/D5W 275ml IVPB SCH ×4 (05:58→17:21)
[2019-02-27] MEDS: Piperacillin/Tazobactam 3.375 GM in D5W 110 ML IVPB SCH ×3 (05:59→22:13)
[2019-02-27 06:14] LABS: BASOPHILS % (AUTO) 0.5 % (0.0-2.0); EOSINOPHILS % (AUTO) 3.6 % (0.0-3.0); HEMATOCRIT 27.8 % (37.0-47.0); HEMOGLOBIN 8.1 G/DL (12.0-16.0); LYMPHOCYTES % (AUTO) 16.6 % (20.0-45.0); MEAN CORPUSCULAR VOLUME 86 FL (80-99); MONOCYTES % (AUTO) 3.4 % (1.0-10.0); NEUTROPHILS % (AUTO) 75.8 % (45.0-75.0); PLATELET COUNT 454 K/UL (150-450); RED BLOOD COUNT 3.22 M/UL (4.20-5.40); RED CELL DISTRIBUTION WIDTH 16.1 % (11.6-14.8); WHITE BLOOD COUNT 11.9 K/UL (4.8-10.8)
[2019-02-27 06:35] LABS: ANION GAP 5 mmol/L (5-15); BLOOD UREA NITROGEN 12 mg/dL (7-18); CALCIUM 11.1 MG/DL (8.5-10.1); CARBON DIOXIDE 33 MMOL/L (21-32); CHLORIDE 108 MMOL/L (98-107); CREATININE 0.4 MG/DL (0.55-1.30); POTASSIUM 3.9 MMOL/L (3.5-5.1); SODIUM 146 MMOL/L (136-145)
--- NOTE | 2019-02-27 07:15 | NUR ---
NURSE NOTES: Received pt from DB Hebert. pt is alert to name only, trach to vent, Portex 7.0, AC 14/TV 450/Fio2 45%/PEEP+5, SPo2 99%. No signs of distress noted. FLACC 0/10. GT running 2CAl@50ml/hr, abd non-distended, no residual, HOB 35 degrees, flushed 60ml free water. Right hand 20G patent and asymptomatic and left wrist 20G running D51/2NS@100ml/hr. Pt is elevated on left side. FC draining clear yellow urine well. Collected urine sample and sent to lab. Thin klein secretions noted upon trach suction. Sacral dressing on clean and intact. Bed locked, alarmed and in lowest position. Will continue to monitor.
--- NOTE | 2019-02-27 07:33 | NUR ---
HAND-OFF: Report given to .raquel matamoros using sbar
[2019-02-27 08:00] VITALS: BP 125/77
[2019-02-27] MEDS: Pantoprazole Inj IVP SCH (08:51)
[2019-02-27] MEDS: Heparin 5000 units/ml inj SUBQ SCH ×2 (08:52→20:11)
--- NOTE | 2019-02-27 09:59 | Diagnostic Imaging Report ---
EXAM: XR Chest, 2 Views CLINICAL HISTORY: Pleural effusion TECHNIQUE: Frontal and lateral views of the chest. COMPARISON: Chest x-ray dated 02/24/19 FINDINGS: Lungs: Patchy interstitial and alveolar opacities throughout the left lung, unchanged. Pleural space: Small layering left pleural effusion, improved compared to the prior chest x-ray. Heart: Unremarkable. No cardiomegaly. Mediastinum: Unremarkable. Bones/joints: Left shoulder dislocation. Degenerative changes throughout the visualized spine and left acromioclavicular joint. Tubes, lines and devices: Tracheostomy tube in place with expected positioning. Telemetry leads overlie the thorax. IMPRESSION: 1. Small layering left pleural effusion, improved compared to the prior chest x-ray. 2. Patchy interstitial and alveolar opacities throughout the left lung, unchanged. 3. Left shoulder dislocation.
--- NOTE | 2019-02-27 10:59 | NUR ---
NURSE NOTES: Notified Dr. Bruce regarding CXR results=dislocation of left shoulder. PMD said he will notify for ortho consult.
--- NOTE | 2019-02-27 11:57 | Pulmonolgy Critical Care Note ---
Critical Care - Asmt/Plan Problems: (1) Acute and chronic respiratory failure (2) Pneumonia involving left lung (3) Sepsis (4) Severe anemia (5) UTI (urinary tract infection) (6) Functional quadriplegia (7) Feeding by G-tube Respiratory: monitor respiratory rate, adjust FIO2, CXR Cardiac: continue to monitor HR/BP Renal: F/U I&O Infectious Disease: check cultures, continue antibiotics Gastrointestinal: continue feedings/current rate Endocrine: monitor blood sugar Hematologic: monitor H/H Neurologic: PRN Ativan, PRN Morphine Notes Reviewed: finisher accordion Discussed with: nurses, consultants, business case analystinformation technology account manager - Objective Last 24 Hour Vital Signs Date Time Temp Pulse Resp B/P (MAP) Pulse Ox O2 Delivery O2 Flow Rate FiO2 02/27/19 10:53 91 17 45 02/27/19 09:29 84 16 45 02/27/19 08:13 82 14 45 02/27/19 08:00 98.8 85 17 125/77 (93) 97 02/27/19 08:00 86 02/27/19 08:00 45 02/27/19 08:00 Mechanical Ventilator 02/27/19 05:06 84 18 45 45 02/27/19 04:00 98.2 81 16 101/64 (76) 98 02/27/19 04:00 Mechanical Ventilator 02/27/19 04:00 87 02/27/19 04:00 45 02/27/19 02:37 85 17 45 45 02/27/19 01:20 89 14 45 45 02/27/19 00:00 74 02/27/19 00:00 98.7 79 16 111/70 (84) 100 02/27/19 00:00 45 02/27/19 00:00 Mechanical Ventilator 02/26/19 22:57 83 21 45 45 02/26/19 20:47 86 16 45 45 02/26/19 20:00 45 02/26/19 20:00 Mechanical Ventilator 02/26/19 20:00 98.3 83 16 124/84 (97) 100 02/26/19 20:00 82 02/26/19 19:56 80 15 45 45 02/26/19 17:30 87 16 45 45 02/26/19 16:00 87 02/26/19 16:00 45 02/26/19 16:00 98.9 89 17 124/74 (91) 99 02/26/19 16:00 Mechanical Ventilator 02/26/19 15:04 88 17 45 45 02/26/19 13:00 87 20 45 45 02/26/19 12:00 45 02/26/19 12:00 90 02/26/19 12:00 Mechanical Ventilator 02/26/19 12:00 98.8 85 15 124/70 (88) 99 HEENT: atraumatic Lungs: rales, rhonchi Heart: HR/BP stable Abdomen: soft, non-tender, feeding tube Extremities: edema Micro: Microbiology Date/Time Source Procedure Growth Status 02/25/19 01:00 Sputum Gram Stain - Final Resulted 02/25/19 01:00 Sputum Culture - Preliminary A.baumanii Complx - Mdr Resulted Accucheck: 171 Critical Care - Subjective ROS Limited/Unobtainable: Yes Condition: critical EKG Rhythm: Sinus Rhythm FI02: 45 Vent Support Breath Rate: 14 Vent Support Mode: AC Vent Tidal Volume: 450 Sputum Amount: Large PEEP: 5.0 PIP: 26 Tube Feeding Amount: 50 I&O: Intake and Output 02/26/19 02/27/19 19:00 07:00 Intake Total 1300 ml 2021.208 ml Output Total 1050 ml Balance 250 ml 2021.208 ml Intake Free Water 200 ml 100 ml IV Total 500 ml 1421.208 ml Tube Feeding 600 ml 500 ml Output Urine Total 1050 ml Labs: Laboratory Tests Test 02/27/19 04:32 White Blood Count 11.9 K/UL (4.8-10.8) H Red Blood Count 3.22 M/UL (4.20-5.40) L Hemoglobin 8.1 G/DL (12.0-16.0) L Hematocrit 27.8 % (37.0-47.0) L Mean Corpuscular Volume 86 FL (80-99) Mean Corpuscular Hemoglobin 25.3 PG (27.0-31.0) L Mean Corpuscular Hemoglobin Concent 29.3 G/DL (32.0-36.0) L Red Cell Distribution Width 16.1 % (11.6-14.8) H Platelet Count 454 K/UL (150-450) H Mean Platelet Volume 5.1 FL (6.5-10.1) L Neutrophils (%) (Auto) 75.8 % (45.0-75.0) H Lymphocytes (%) (Auto) 16.6 % (20.0-45.0) L Monocytes (%) (Auto) 3.4 % (1.0-10.0) Eosinophils (%) (Auto) 3.6 % (0.0-3.0) H Basophils (%) (Auto) 0.5 % (0.0-2.0) Sodium Level 146 MMOL/L (136-145) H Potassium Level 3.9 MMOL/L (3.5-5.1) Chloride Level 108 MMOL/L (98-107) H Carbon Dioxide Level 33 MMOL/L (21-32) H Anion Gap 5 mmol/L (5-15) Blood Urea Nitrogen 12 mg/dL (7-18) Creatinine 0.4 MG/DL (0.55-1.30) L Estimat Glomerular Filtration Rate > 60 mL/min (>60) Glucose Level 146 MG/DL (74-106) H Calcium Level 11.1 MG/DL (8.5-10.1) H Rula Corrigan MD Feb 27, 2019 11:57
[2019-02-27 12:00] VITALS: BP 96/63
--- NOTE | 2019-02-27 13:18 | Surgery Progress Note ---
Surgery Progress Note Subjective Additional Comments no acute events. labs noted. micro noted. exam unchanged. Objective Last 24 Hour Vital Signs Date Time Temp Pulse Resp B/P (MAP) Pulse Ox O2 Delivery O2 Flow Rate FiO2 02/27/19 10:53 91 17 45 02/27/19 09:29 84 16 45 02/27/19 08:13 82 14 45 02/27/19 08:00 98.8 85 17 125/77 (93) 97 02/27/19 08:00 86 02/27/19 08:00 45 02/27/19 08:00 Mechanical Ventilator 02/27/19 05:06 84 18 45 45 02/27/19 04:00 98.2 81 16 101/64 (76) 98 02/27/19 04:00 Mechanical Ventilator 02/27/19 04:00 87 02/27/19 04:00 45 02/27/19 02:37 85 17 45 45 02/27/19 01:20 89 14 45 45 02/27/19 00:00 74 02/27/19 00:00 98.7 79 16 111/70 (84) 100 02/27/19 00:00 45 02/27/19 00:00 Mechanical Ventilator 02/26/19 22:57 83 21 45 45 02/26/19 20:47 86 16 45 45 02/26/19 20:00 45 02/26/19 20:00 Mechanical Ventilator 02/26/19 20:00 98.3 83 16 124/84 (97) 100 02/26/19 20:00 82 02/26/19 19:56 80 15 45 45 02/26/19 17:30 87 16 45 45 02/26/19 16:00 87 02/26/19 16:00 45 02/26/19 16:00 98.9 89 17 124/74 (91) 99 02/26/19 16:00 Mechanical Ventilator 02/26/19 15:04 88 17 45 45 I&O Intake and Output 02/26/19 02/27/19 19:00 07:00 Intake Total 1300 ml 2021.208 ml Output Total 1050 ml Balance 250 ml 2021.208 ml Intake Free Water 200 ml 100 ml IV Total 500 ml 1421.208 ml Tube Feeding 600 ml 500 ml Output Urine Total 1050 ml Dressing: saturated Wound: other Drains: other Cardiovascular: RSR Respiratory: decreased breath sounds Abdomen: soft, present bowel sounds, non-distended Extremities: no cyanosis, other Laboratory Tests Test 02/27/19 04:32 White Blood Count 11.9 K/UL (4.8-10.8) H Red Blood Count 3.22 M/UL (4.20-5.40) L Hemoglobin 8.1 G/DL (12.0-16.0) L Hematocrit 27.8 % (37.0-47.0) L Mean Corpuscular Volume 86 FL (80-99) Mean Corpuscular Hemoglobin 25.3 PG (27.0-31.0) L Mean Corpuscular Hemoglobin Concent 29.3 G/DL (32.0-36.0) L Red Cell Distribution Width 16.1 % (11.6-14.8) H Platelet Count 454 K/UL (150-450) H Mean Platelet Volume 5.1 FL (6.5-10.1) L Neutrophils (%) (Auto) 75.8 % (45.0-75.0) H Lymphocytes (%) (Auto) 16.6 % (20.0-45.0) L Monocytes (%) (Auto) 3.4 % (1.0-10.0) Eosinophils (%) (Auto) 3.6 % (0.0-3.0) H Basophils (%) (Auto) 0.5 % (0.0-2.0) Sodium Level 146 MMOL/L (136-145) H Potassium Level 3.9 MMOL/L (3.5-5.1) Chloride Level 108 MMOL/L (98-107) H Carbon Dioxide Level 33 MMOL/L (21-32) H Anion Gap 5 mmol/L (5-15) Blood Urea Nitrogen 12 mg/dL (7-18) Creatinine 0.4 MG/DL (0.55-1.30) L Estimat Glomerular Filtration Rate > 60 mL/min (>60) Glucose Level 146 MG/DL (74-106) H Calcium Level 11.1 MG/DL (8.5-10.1) H Plan Problems: (1) Decubitus skin ulcer Assessment & Plan: Pt presented on admission with unstageable wound L earlobe.Wound has 95% soft necrosis ,5% viable. (L)2.5cm x (W)0.7cm. Periwound earlobe extending into ear canal has darker than is normal skin tone. Full thickness sacral pressure injury with 10% slough otherwise wound is viable with measureable depth at coccyx. Pt flinches each time area is minimally palpated. ( L)2.5cm x (W)7.5cm x (D)0.4cm.Edges of wound macerated. Erythema periwound. Bilat heels firm and easily blanchable. Tx.PLan: Cleanse Sacral wound with Saline. Apply Therahoney .Apply Triad periwound.Cover with Optifoam drsg .Change daily and prn. Cleanse L ear with Saline. Apply Therahoney. Cover with Optifoam drsg .Change Daily and prn. Apply Cavilon to both heels .Cover each heel with Optifoam drsg. Change every 7 days and prn. Please maintain Foam Mold around L ear to reduce pressure from ear. Reposition at least every 2 hours or as tolerated. Off-load heels with Pillow. APM/SYLVIA mattress. (2) Functional quadriplegia Levon Nuens Feb 27, 2019 13:18
[2019-02-27] MEDS ORDERED: D5 1/2NS 1000ml IV ONE (15:28)
[2019-02-27] MEDS ORDERED: D5W 275ml ONE (15:28)
[2019-02-27] MEDS ORDERED: NS 275ml ONE (15:28)
[2019-02-27 16:00] VITALS: BP 106/69
--- NOTE | 2019-02-27 17:36 | NUR ---
CASE MANAGEMENT: REVIEW 02/27/2019 SI:SEPSIS. PNA. T 98.9 HR 79 RR 15 B/P 106/69 SATS 98% ON MECH VENT FiO2 45 WBC 11.9 NA 146 CL 108 CO2 33 CR 0.4 GLU 146 CA 11.1 IS:IVF @ 100 mL/HR VANCO IV Q12H ZOSYN IV Q8H STEP DOWN UNIT PLAN ON CARE: CXR WOUND CARE
--- NOTE | 2019-02-27 18:00 | Progress Note ---
DATE: 02/26/2019 SUBJECTIVE: The patient is awake, alert, afebrile, and hemodynamically stable. PHYSICAL EXAMINATION: VITAL SIGNS: Blood pressure is 124/84, pulse is , respirations of 16, and temperature is 98.3. HEENT: Eyes were normal. ENT, mucous membranes were moist and intact. NECK: Supple with no JVD without lymph nodes. Tracheostomy site is clean. LUNGS: Bilateral rhonchi in both bases more on the right than the left. ABDOMEN: Soft and nontender with normal bowel sounds. Gastrostomy site is clean. EXTREMITIES: Warm without cyanosis, clubbing, or edema. LABORATORY AND DIAGNOSTIC DATA: Hemoglobin is 8.6, hematocrit 28.3 with MCV of 85, WBC of 13.6, and platelets of 531. ESR is 117. Her BUN and creatinine are 16 and 0.4 respectively. Her sodium is 147, potassium 3.7, chloride 109, and CO2 is 31. Her phosphorus is 1.8 and magnesium is 2.0. CRP is 2.6. showed gram-negative bacilli. Sensitivity is not available yet. Chest x-ray from yesterday revealed haziness of the right lung suspected of pulmonary or pleural effusion and suspected of underlying bronchial pneumonia. IMPRESSION AND PLAN: The patient currently is on vancomycin 1 g IV piggyback q.12 h. and piperacillin and tazobactam 3.375 g IV piggyback q.6 h. Repeat laboratory tests will be done in a.m. including chest x-ray. Bassem Bruce M.D. DR: SANDRA JOB#: [id number] CC:
--- NOTE | 2019-02-27 18:28 | NUR ---
NURSE NOTES: Turned and repositioned. x1 green/brown BM noted. Kept dry and clean. Tolerating GTF well. HOB 35 degrees. No signs of discomfort.
--- NOTE | 2019-02-27 19:11 | NUR ---
HAND-OFF: Report given to DB Reddy using SBAR.
--- NOTE | 2019-02-27 19:30 | NUR ---
NURSE NOTES: Received pt and report DB Phillip. Patient has no respiratory distress,no s/s of pain SR on case monitor,open eyes,blinking,Trach Portex 7 AC 14 TV 450 FiO2 45% PEEP 5,GT in place running Twocal @ 50 ml/hr,no residual,BS active in all quadrants,f/cath in place running toward gravity,pt on P 200 mattress,IV asymptomatic,intact on R hand G 18 and L wrist G 22 running D5 1/2 NS@ 100ml/hr. Will continue to monitor and follow POC.
[2019-02-27 20:00] VITALS: BP 126/77
[2019-02-27 20:46] LABS: APPEARANCE,URINE CLEAR; BILIRUBIN, URINE NEGATIVE (NEGATIVE); COLOR,URINE PALE YELLOW; GLUCOSE, URINE (UA) NEGATIVE (NEGATIVE); KETONES,URINE NEGATIVE (NEGATIVE); LEUKOCYTE ESTERASE ,URINE NEGATIVE (NEGATIVE); NITRITE,URINE NEGATIVE (NEGATIVE); PH,URINE 6.5 (4.5-8.0); PROTEIN,URINE 1+ (NEGATIVE); UROBILINOGEN,URINE NORMAL MG/DL (0.0-1.0)
--- NOTE | 2019-02-27 20:51 | General Progress Note ---
Assessment/Plan Assessment/Plan Assessment and Recs # Anemia of chronic disease due to underlying chronic medical issues, multifactorial --> Anemia workup has been ordered --> No evidence of hemolysis is noted, peripheral smear has been reviewed. --> Hgb goal >7. Transfuse prn. --> Epogen or iron at this time is not particularly indicated --> Medications have been reviewed --> evaluate with Gi team prn # Leukocytosis/Elevated white blood cell count, unspecified likely related to underlying stress reaction, smoking v more likely infection --> have reviewed peripheral smear and bandemia/neutrophilia noted --> continue antibiotics if they have been started by ID team --> monitor for resolution on cxr for pna --> trend wbc 18k-->12.5k-->11k # Thrombocytosis again similar to above --> likely related to infection, monitor for resolution # Transaminitis/elevated lffts # Chronic respiratory failure s/p trach/vent # Dysphagia is s/p PEG # Anxiety # Schizoaffective disorder # [facility] resident The timing of this note does not necessarily reflect the time of the patient was seen. Greatly appreciate consultation! Subjective Constitutional: Denies: no symptoms, chills, diaphoresis, fever, malaise, weakness, other Cardiovascular: Denies: no symptoms, chest pain, edema, irregular heart rate, lightheadedness, palpitations, syncope, other Gastrointestinal/Abdominal: Denies: no symptoms, abdomen distended, abdominal pain, black stools, tarry stools, blood in stool, constipated, diarrhea, difficulty swallowing, nausea, poor appetite, poor fluid intake, rectal bleeding , vomiting, other Allergies: Coded Allergies: DIPHENHYDRAMINE (Verified Allergy, Unknown, 02/24/19) FLUPHENAZINE (Verified Allergy, Unknown, 02/24/19) Subjective 02/25: no events, on abx, is in the sdu, will be getting prbc transfusion today 02/27: no f/c, hgb remains low, hgb 8.1, remains in the sdu, on vent Objective Last 24 Hour Vital Signs Date Time Temp Pulse Resp B/P (MAP) Pulse Ox O2 Delivery O2 Flow Rate FiO2 02/27/19 20:39 84 15 45 02/27/19 18:50 81 16 45 02/27/19 17:24 77 17 45 02/27/19 16:00 81 02/27/19 16:00 45 02/27/19 16:00 98.9 79 15 106/69 (81) 98 02/27/19 16:00 Mechanical Ventilator 02/27/19 15:24 75 14 45 02/27/19 13:02 100 15 45 02/27/19 12:00 45 02/27/19 12:00 78 02/27/19 12:00 99.4 78 15 96/63 (74) 100 02/27/19 12:00 Mechanical Ventilator 02/27/19 10:53 91 17 45 02/27/19 09:29 84 16 45 02/27/19 08:13 82 14 45 02/27/19 08:00 98.8 85 17 125/77 (93) 97 02/27/19 08:00 86 02/27/19 08:00 45 02/27/19 08:00 Mechanical Ventilator 02/27/19 05:06 84 18 45 45 02/27/19 04:00 98.2 81 16 101/64 (76) 98 02/27/19 04:00 Mechanical Ventilator 02/27/19 04:00 87 02/27/19 04:00 45 02/27/19 02:37 85 17 45 45 02/27/19 01:20 89 14 45 45 02/27/19 00:00 74 02/27/19 00:00 98.7 79 16 111/70 (84) 100 02/27/19 00:00 45 02/27/19 00:00 Mechanical Ventilator 02/26/19 22:57 83 21 45 45 02/26/19 20:47 86 16 45 45 Intake and Output 02/26/19 02/27/19 18:59 06:59 Intake Total 1400 ml 2071.208 ml Output Total 1050 ml Balance 350 ml 2071.208 ml Intake Free Water 200 ml 100 ml IV Total 600 ml 1421.208 ml Tube Feeding 600 ml 550 ml Output Urine Total 1050 ml Laboratory Tests 02/27/19 04:32: White Blood Count 11.9H, Red Blood Count 3.22L, Hemoglobin 8.1L, Hematocrit 27.8L, Mean Corpuscular Volume 86, Mean Corpuscular Hemoglobin 25.3L, Mean Corpuscular Hemoglobin Concent 29.3L, Red Cell Distribution Width 16.1H, Platelet Count 454H, Mean Platelet Volume 5.1L, Neutrophils (%) (Auto) 75.8H, Lymphocytes (%) (Auto) 16.6L, Monocytes (%) (Auto) 3.4, Eosinophils (%) (Auto) 3.6H, Basophils (%) (Auto) 0.5, Sodium Level 146H, Potassium Level 3.9, Chloride Level 108H, Carbon Dioxide Level 33H, Anion Gap 5, Blood Urea Nitrogen 12, Creatinine 0.4L, Estimat Glomerular Filtration Rate > 60, Glucose Level 146H , Calcium Level 11.1H 02/27/19 20:00: Urine Color [Pending], Urine Appearance [Pending], Urine pH [Pending], Urine Specific [place] [Pending], Urine Protein [Pending], Urine Glucose (UA) [Pending ], Urine Ketones [Pending], Urine Blood [Pending], Urine Nitrite [Pending], Urine Bilirubin [Pending], Urine Urobilinogen [Pending], Urine Leukocyte Esterase [Pending], Urine Legionella Antigen [Pending] Height (Feet): 5 Height (Inches): 6.00 Weight (Pounds): 175 Objective Sp02 EP Interpretation: reviewed, normal General Appearance: alert, Chronically Ill Head: normocephalic, atraumatic Eyes: bilateral eye normal inspection, bilateral eye PERRL, bilateral eye EOMI ENT: moist mucus membranes Neck: supple, ++ tracheotomy Respiratory: rales, rhonchi, wheezing, expiration, other - Thick secretions Cardiovascular: tachycardia, edema Gastrointestinal: soft, decreased bowel sounds ++ peg Musculoskeletal: swelling Neurologic: responsive, presto log operator III-XII nml as tested, motor weakness - R hemiparesis, flaccid L upper arm, able to move L foot, sensory deficit Tod Bradley MD Feb 27, 2019 20:51
[2019-02-28] VITALS: BP 121/81
[2019-02-28 04:00] VITALS: BP 139/80
[2019-02-28 05:04] LABS: BASOPHILS % (AUTO) 0.5 % (0.0-2.0); EOSINOPHILS % (AUTO) 3.2 % (0.0-3.0); HEMOGLOBIN 8.2 G/DL (12.0-16.0); LYMPHOCYTES % (AUTO) 14.6 % (20.0-45.0); MEAN CORPUSCULAR VOLUME 85 FL (80-99); NEUTROPHILS % (AUTO) 78.8 % (45.0-75.0); PLATELET COUNT 402 K/UL (150-450); RED BLOOD COUNT 3.17 M/UL (4.20-5.40); RED CELL DISTRIBUTION WIDTH 16.5 % (11.6-14.8); WHITE BLOOD COUNT 13.4 K/UL (4.8-10.8)
[2019-02-28 05:19] LABS: ALANINE AMINOTRANSFERASE 67 U/L (12-78); ALBUMIN 1.8 G/DL (3.4-5.0); ALBUMIN/GLOBULIN RATIO 0.4 (1.0-2.7); ALKALINE PHOSPHATASE 106 U/L (46-116); ANION GAP 4 mmol/L (5-15); ASPARTATE AMINO TRANSFERASE 18 U/L (15-37); BILIRUBIN,TOTAL 0.1 MG/DL (0.2-1.0); BLOOD UREA NITROGEN 12 mg/dL (7-18); CALCIUM 10.2 MG/DL (8.5-10.1); CARBON DIOXIDE 34 MMOL/L (21-32); CHLORIDE 106 MMOL/L (98-107); CREATININE 0.4 MG/DL (0.55-1.30); POTASSIUM 4.1 MMOL/L (3.5-5.1); SODIUM 144 MMOL/L (136-145)
[2019-02-28] MEDS: Piperacillin/Tazobactam 3.375 GM in D5W 110 ML IVPB SCH ×2 (06:09→14:35)
[2019-02-28] MEDS: Vancomycin 1gm/D5W 275ml IVPB SCH ×2 (06:09)
--- NOTE | 2019-02-28 07:30 | NUR ---
HAND-OFF: Report given to DB Santiago.
[2019-02-28 08:00] VITALS: BP 131/77
--- NOTE | 2019-02-28 08:00 | NUR ---
NURSE NOTES: Receive patient eyes open, unable to follow command. vehicle monitor technician shwoing SR. Protex 7 AC 14 VT 450 FiO2 45% Peep of 5. No distress noted. Feeding held due to upcoming abdominal ultrasound. Turned and repositioned. Stage 3 sacral ulcer and L ear ulcer noted. R hand 20 L wrist 20. D51/2NS at 100 cc/hr. Labs within normal limits. Lung sounds diminished bilaterally. Hypoactive bowel sounds on all 4 quadrants present. Will continue to monitor patient.
[2019-02-28] MEDS: Heparin 5000 units/ml inj SUBQ SCH ×2 (08:25→20:15)
[2019-02-28] MEDS: Pantoprazole Inj IVP SCH (08:26)
--- NOTE | 2019-02-28 09:36 | NUR ---
RADIOLOGY DEPT., CHEST, LEFT SHOULDER X-RAYS COMPLETED.-P.DYE
[2019-02-28] MEDS: D5 1/2NS 1,000 ML IV SCH ×2 (10:18→20:12)
--- NOTE | 2019-02-28 10:23 | Diagnostic Imaging Report ---
Indication: Pain, trauma Technique: 3 views of the left shoulder Comparison: none Findings: The humeral head appears subluxed inferiorly and the glenohumeral joint appears widened, as does the gap between the humeral head and the acromion. No definite juli dislocation. No acute fractures. The bones appear somewhat osteoporotic. Tracheostomy incidentally noted. Impression: Subluxation of the humeral head. Suspect chronic, on the basis of rotator cuff laxity, as similar findings are demonstrated on the right shoulder on recent chest radiograph. The appearance of the left shoulder is also similar to those demonstrated on previous chest radiographs. Consider MRI for better characterization, if clinically indicated No definite acute bony trauma Osteoporotic change
--- NOTE | 2019-02-28 10:25 | Diagnostic Imaging Report ---
Indication: Dyspnea Technique: One view of the chest Comparison: 02/27/2019 Findings: Interstitial and airspace opacities are again demonstrated in the left lung. There appears to be some left lung volume loss which is unchanged. Left pleural effusion appears unchanged. There is some atelectasis and possibly developing infiltrate at the right lung base. The heart size is normal. Tracheostomy remains. Impression: Atelectasis and possibly slight developing infiltrate at the right lung base. Stable diffuse left interstitial and airspace infiltrates/edema, left pleural effusion
--- NOTE | 2019-02-28 10:45 | Progress Note ---
DATE: 02/27/2019 SUBJECTIVE: The patient's condition has markedly improved. She is awake and alert. Her eye contact, facial expression . OBJECTIVE: VITAL SIGNS: Blood pressure is 126/77, pulse is 78, respirations of 16, and temperature 98.9 degrees. HEENT: Eyes were normal. ENT, mucous membranes were moist and intact. NECK: Supple with no JVD without lymph node. Tracheostomy site is clean. LUNGS: Clear without rhonchi, rales, or wheezing. Secretions are small, thin, and robison. HEART: Normal sounds with regular beats. There is no tachycardia at rest. ABDOMEN: Soft and nontender with normal bowel sounds. Gastrostomy site is clean. EXTREMITIES: Warm without cyanosis, clubbing, or edema. LABORATORY AND DIAGNOSTIC DATA: Chest x-ray was done today, had several small pleural effusion on the left. interstitial and alveolar infiltrate in the left lung. The left shoulder is dislocated and the joints show degenerative changes. Plan, orthopedic business sales consultant was called to assist in the management of this case. Her hemoglobin is 8.9, hematocrit 27.8 with MCV of 86, WBC of 11.9, and platelets 454,000. Her BUN and creatinine are 12 and 0.4 respectively. Sodium is 143, potassium 3.9, chloride 108, CO2 is 33. Glucose is 146. Calcium is 11.1, phosphorus 1.8, and magnesium is 2. SGOT and SGPT are elevated as well as alkaline phosphatase. CRP dramatically declined to 2.6, albumin is 2, and total protein is 7.6. IMPRESSION: 1. The patient has hypercalcemia and , which may indicate the presence of parathyroid adenoma. PTH will be requested. 2. The patient's liver function tests have increased as compared to 02/24/2019. will be requested. Currently, the patient given vancomycin 1 g IV piggyback q.12 h. Piperacillin and tazobactam 3.375 g IV piggyback q.6 h. Orthopedic consulted and PTH as well as CBC and BMP and abdominal ultrasound will be requested. Bassem Bruce M.D. DR: Hina JOB#: [id number] CC:
--- NOTE | 2019-02-28 11:10 | Pulmonolgy Critical Care Note ---
Critical Care - Asmt/Plan Problems: (1) Acute and chronic respiratory failure (2) MDRO (multiple drug resistant organisms) resistance (3) Pneumonia involving left lung (4) Sepsis (5) Severe anemia (6) UTI (urinary tract infection) (7) Feeding by G-tube (8) Functional quadriplegia Respiratory: monitor respiratory rate, adjust FIO2, CXR Cardiac: continue to monitor HR/BP Renal: F/U I&O, check electrolytes Gastrointestinal: continue feedings/current rate Endocrine: monitor blood sugar, check TSH Neurologic: PRN Morphine Prophylaxis: Protonix Notes Reviewed: 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 with: nurses, consultants Critical Care - Objective Last 24 Hour Vital Signs Date Time Temp Pulse Resp B/P (MAP) Pulse Ox O2 Delivery O2 Flow Rate FiO2 02/28/19 09:10 81 17 40 02/28/19 08:00 81 02/28/19 08:00 45 02/28/19 08:00 Mechanical Ventilator 02/28/19 07:00 79 17 40 02/28/19 05:03 74 17 40 02/28/19 04:00 74 02/28/19 04:00 98.0 76 18 139/80 (99) 100 02/28/19 04:00 Mechanical Ventilator 02/28/19 04:00 45 02/28/19 02:51 81 16 45 02/28/19 00:40 76 15 45 02/28/19 00:00 98.5 73 15 121/81 (94) 100 02/28/19 00:00 Mechanical Ventilator 02/27/19 22:49 77 15 45 02/27/19 20:39 84 15 45 02/27/19 20:00 77 02/27/19 20:00 Mechanical Ventilator 02/27/19 20:00 98.3 78 15 126/77 (93) 99 02/27/19 20:00 45 02/27/19 18:50 81 16 45 02/27/19 17:24 77 17 45 02/27/19 16:00 81 02/27/19 16:00 45 02/27/19 16:00 98.9 79 15 106/69 (81) 98 02/27/19 16:00 Mechanical Ventilator 02/27/19 15:24 75 14 45 02/27/19 13:02 100 15 45 02/27/19 12:00 45 02/27/19 12:00 78 02/27/19 12:00 99.4 78 15 96/63 (74) 100 02/27/19 12:00 Mechanical Ventilator Status: awake Condition: critical HEENT: atraumatic Neck: full ROM Heart: HR/BP stable Abdomen: soft, active bowel sounds Extremities: no C/C/E, edema Decubiti: location Micro: Microbiology Date/Time Source Procedure Growth Status 02/27/19 20:00 Urine,Clean Catch Urine Culture - Preliminary NO GROWTH Resulted Accucheck: 171 Critical Care - Subjective ROS Limited/Unobtainable: No Condition: critical EKG Rhythm: Sinus Rhythm FI02: 40 Vent Support Breath Rate: 14 Vent Support Mode: AC Vent Tidal Volume: 450 Sputum Amount: Small PEEP: 5.0 PIP: 26 Tube Feeding Amount: 50 I&O: Intake and Output 02/27/19 02/28/19 19:00 07:00 Intake Total 535 ml 1820.0 ml Balance 535 ml 1820.0 ml Intake Free Water 60 ml 60 ml IV Total 375 ml 1210.0 ml Tube Feeding 100 ml 550 ml # Bowel Movements 1 CXR: cxr better Labs: Laboratory Tests Test 02/27/19 20:00 02/28/19 05:00 Urine Color Pale yellow Urine Appearance Clear Urine pH 6.5 (4.5-8.0) Urine Specific [place] 1.010 (1.005-1.035) Urine Protein 1+ (NEGATIVE) H Urine Glucose (UA) Negative (NEGATIVE) Urine Ketones Negative (NEGATIVE) Urine Blood 2+ (NEGATIVE) H Urine Nitrite Negative (NEGATIVE) Urine Bilirubin Negative (NEGATIVE) Urine Urobilinogen Normal MG/DL (0.0-1.0) Urine Leukocyte Esterase Negative (NEGATIVE) Urine RBC 2-4 /HPF (0 - 2) H Urine WBC 0-2 /HPF (0 - 2) Urine Squamous Epithelial Cells Occasional /LPF Urine Bacteria None /HPF (NONE) Urine Yeast Moderate /HPF (NONE) H Urine Legionella Antigen Pending White Blood Count 13.4 K/UL (4.8-10.8) H Red Blood Count 3.17 M/UL (4.20-5.40) L Hemoglobin 8.2 G/DL (12.0-16.0) L Hematocrit 27.0 % (37.0-47.0) L Mean Corpuscular Volume 85 FL (80-99) Mean Corpuscular Hemoglobin 25.8 PG (27.0-31.0) L Mean Corpuscular Hemoglobin Concent 30.3 G/DL (32.0-36.0) L Red Cell Distribution Width 16.5 % (11.6-14.8) H Platelet Count 402 K/UL (150-450) Mean Platelet Volume 6.0 FL (6.5-10.1) L Neutrophils (%) (Auto) 78.8 % (45.0-75.0) H Lymphocytes (%) (Auto) 14.6 % (20.0-45.0) L Monocytes (%) (Auto) 3.0 % (1.0-10.0) Eosinophils (%) (Auto) 3.2 % (0.0-3.0) H Basophils (%) (Auto) 0.5 % (0.0-2.0) Sodium Level 144 MMOL/L (136-145) Potassium Level 4.1 MMOL/L (3.5-5.1) Chloride Level 106 MMOL/L (98-107) Carbon Dioxide Level 34 MMOL/L (21-32) H Anion Gap 4 mmol/L (5-15) L Blood Urea Nitrogen 12 mg/dL (7-18) Creatinine 0.4 MG/DL (0.55-1.30) L Estimat Glomerular Filtration Rate > 60 mL/min (>60) Glucose Level 147 MG/DL (74-106) H Calcium Level 10.2 MG/DL (8.5-10.1) H Calcium (Send out) Pending Total Bilirubin 0.1 MG/DL (0.2-1.0) L Aspartate Amino Transf (AST/SGOT) 18 U/L (15-37) Alanine Aminotransferase (ALT/SGPT) 67 U/L (12-78) Alkaline Phosphatase 106 U/L (46-116) Pro-B-Type Natriuretic Peptide 69 pg/mL (0-125) Total Protein 6.7 G/DL (6.4-8.2) Albumin 1.8 G/DL (3.4-5.0) L Globulin 4.9 g/dL Albumin/Globulin Ratio 0.4 (1.0-2.7) L Parathyroid Hormone (Intact) Pending Vancomycin Level Trough 13.2 ug/mL (5.0-12.0) H Rula Corrigan MD Feb 28, 2019 11:10
[2019-02-28 12:00] VITALS: BP 129/75
--- NOTE | 2019-02-28 12:00 | NUR ---
NURSE NOTES: Patient turned and repositioned. VSS. Feeding resumed post abdominal ultrasound. Will continue plan of care.
--- NOTE | 2019-02-28 13:34 | General Progress Note ---
Assessment/Plan Assessment/Plan Assessment and Recs # Anemia of chronic disease due to underlying chronic medical issues, multifactorial --> Anemia workup has been ordered --> No evidence of hemolysis is noted, peripheral smear has been reviewed. --> Hgb goal >7. Transfuse prn. --> Epogen or iron at this time is not indicated --> Medications have been reviewed --> evaluate with Gi team prn # Leukocytosis/Elevated white blood cell count, unspecified likely related to underlying stress reaction, smoking v more likely infection --> have reviewed peripheral smear and bandemia/neutrophilia noted --> continue antibiotics if they have been started by ID team --> monitor for resolution on cxr for pna --> trend wbc 18k-->12.5k-->11k-->13k # Thrombocytosis again similar to above --> likely related to infection, monitor for resolution # Transaminitis/elevated lffts --> on abx # Chronic respiratory failure s/p trach/vent # Dysphagia is s/p PEG # Anxiety # Schizoaffective disorder # care home resident The timing of this note does not necessarily reflect the time of the patient was seen. Greatly appreciate consultation! Subjective Cardiovascular: Denies: no symptoms, chest pain, edema, irregular heart rate, lightheadedness, palpitations, syncope, other Respiratory: Denies: no symptoms, cough, orthopnea, shortness of breath, SOB with excertion, SOB at rest, sputum, stridor, wheezing, other Gastrointestinal/Abdominal: Denies: no symptoms, abdomen distended, abdominal pain, black stools, tarry stools, blood in stool, constipated, diarrhea, difficulty swallowing, nausea, poor appetite, poor fluid intake, rectal bleeding , vomiting, other Genitourinary: Denies: no symptoms, burning, discharge, frequency, flank pain, hematuria, incontinence, pain, urgency, other Neurologic/Psychiatric: Denies: no symptoms, anxiety, depressed, emotional problems, headache, numbness, paresthesia, pre-existing deficit, seizure, tingling, tremors, weakness, other Endocrine: Denies: no symptoms, excessive sweating, flushing, intolerance to cold, intolerance to heat, increased hunger, increased thirst, increased urine, unexplained weight gain, unexplained weight loss, other Hematologic/Lymphatic: Denies: no symptoms, anemia, easy bleeding, easy bruising, other Allergies: Coded Allergies: DIPHENHYDRAMINE (Verified Allergy, Unknown, 02/24/19) FLUPHENAZINE (Verified Allergy, Unknown, 02/24/19) Subjective 02/25: no events, on abx, is in the sdu, will be getting prbc transfusion today 02/27: no f/c, hgb remains low, hgb 8.1, remains in the sdu, on vent 02/28: open eyes and more following commands, on vent Objective Last 24 Hour Vital Signs Date Time Temp Pulse Resp B/P (MAP) Pulse Ox O2 Delivery O2 Flow Rate FiO2 02/28/19 13:10 72 17 40 02/28/19 12:00 Mechanical Ventilator 02/28/19 12:00 98.2 78 16 129/75 (93) 99 02/28/19 12:00 45 02/28/19 11:06 76 15 40 02/28/19 09:10 81 17 40 02/28/19 08:00 81 02/28/19 08:00 45 02/28/19 08:00 Mechanical Ventilator 02/28/19 08:00 98.1 79 16 131/77 (95) 100 02/28/19 07:00 79 17 40 02/28/19 05:03 74 17 40 02/28/19 04:00 74 02/28/19 04:00 98.0 76 18 139/80 (99) 100 02/28/19 04:00 Mechanical Ventilator 02/28/19 04:00 45 02/28/19 02:51 81 16 45 02/28/19 00:40 76 15 45 02/28/19 00:00 98.5 73 15 121/81 (94) 100 02/28/19 00:00 Mechanical Ventilator 02/27/19 22:49 77 15 45 02/27/19 20:39 84 15 45 02/27/19 20:00 77 02/27/19 20:00 Mechanical Ventilator 02/27/19 20:00 98.3 78 15 126/77 (93) 99 02/27/19 20:00 45 02/27/19 18:50 81 16 45 02/27/19 17:24 77 17 45 02/27/19 16:00 81 02/27/19 16:00 45 02/27/19 16:00 98.9 79 15 106/69 (81) 98 02/27/19 16:00 Mechanical Ventilator 02/27/19 15:24 75 14 45 Intake and Output 02/27/19 02/28/19 19:00 07:00 Intake Total 535 ml 1820.0 ml Balance 535 ml 1820.0 ml Intake Free Water 60 ml 60 ml IV Total 375 ml 1210.0 ml Tube Feeding 100 ml 550 ml # Bowel Movements 1 Laboratory Tests 02/27/19 20:00: Urine Color Pale yellow, Urine Appearance Clear, Urine pH 6.5, Urine Specific [place] 1.010, Urine Protein 1+H, Urine Glucose (UA) Negative, Urine Ketones Negative, Urine Blood 2+H, Urine Nitrite Negative, Urine Bilirubin Negative, Urine Urobilinogen Normal, Urine Leukocyte Esterase Negative, Urine RBC 2-4H, Urine WBC 0-2, Urine Squamous Epithelial Cells Occasional, Urine Bacteria None, Urine Yeast ModerateH, Urine Legionella Antigen [Pending] 02/28/19 05:00: White Blood Count 13.4H, Red Blood Count 3.17L, Hemoglobin 8.2L, Hematocrit 27.0L, Mean Corpuscular Volume 85, Mean Corpuscular Hemoglobin 25.8L, Mean Corpuscular Hemoglobin Concent 30.3L, Red Cell Distribution Width 16.5H, Platelet Count 402, Mean Platelet Volume 6.0L, Neutrophils (%) (Auto) 78.8H, Lymphocytes (%) (Auto) 14.6L, Monocytes (%) (Auto) 3.0, Eosinophils (%) (Auto) 3.2H, Basophils (%) (Auto) 0.5, Sodium Level 144, Potassium Level 4.1, Chloride Level 106, Carbon Dioxide Level 34H, Anion Gap 4L, Blood Urea Nitrogen 12, Creatinine 0.4L, Estimat Glomerular Filtration Rate > 60, Glucose Level 147H, Calcium Level 10.2H, Calcium (Send out) [Pending], Total Bilirubin 0.1L, Aspartate Amino Transf (AST/SGOT) 18, Alanine Aminotransferase (ALT/SGPT) 67, Alkaline Phosphatase 106, Pro-B-Type Natriuretic Peptide 69, Total Protein 6.7, Albumin 1.8L, Globulin 4.9, Albumin/Globulin Ratio 0.4L, Parathyroid Hormone ( Intact) [Pending], Vancomycin Level Trough 13.2H Height (Feet): 5 Height (Inches): 6.00 Weight (Pounds): 175 Objective Sp02 EP Interpretation: reviewed, normal General Appearance: alert, Chronically Ill Head: normocephalic, atraumatic Eyes: bilateral eye normal inspection, bilateral eye PERRL, bilateral eye EOMI ENT: moist mucus membranes Neck: supple, ++ tracheotomy Respiratory: rales, rhonchi, wheezing, expiration, other - Thick secretions Cardiovascular: tachycardia, edema Gastrointestinal: soft, decreased bowel sounds ++ peg Musculoskeletal: swelling Neurologic: responsive, administrative dietitian III-XII nml as tested, motor weakness - R hemiparesis, flaccid L upper arm, able to move L foot, sensory deficit Tod Bradley MD Feb 28, 2019 13:34
--- NOTE | 2019-02-28 13:58 | Surgery Progress Note ---
Surgery Progress Note Subjective Additional Comments no acute events. leukocytosis. exam unchanged. labs noted. micro noted. Objective Last 24 Hour Vital Signs Date Time Temp Pulse Resp B/P (MAP) Pulse Ox O2 Delivery O2 Flow Rate FiO2 02/28/19 13:10 72 17 40 02/28/19 12:00 Mechanical Ventilator 02/28/19 12:00 98.2 78 16 129/75 (93) 99 02/28/19 12:00 45 02/28/19 11:06 76 15 40 02/28/19 09:10 81 17 40 02/28/19 08:00 81 02/28/19 08:00 45 02/28/19 08:00 Mechanical Ventilator 02/28/19 08:00 98.1 79 16 131/77 (95) 100 02/28/19 07:00 79 17 40 02/28/19 05:03 74 17 40 02/28/19 04:00 74 02/28/19 04:00 98.0 76 18 139/80 (99) 100 02/28/19 04:00 Mechanical Ventilator 02/28/19 04:00 45 02/28/19 02:51 81 16 45 02/28/19 00:40 76 15 45 02/28/19 00:00 98.5 73 15 121/81 (94) 100 02/28/19 00:00 Mechanical Ventilator 02/27/19 22:49 77 15 45 02/27/19 20:39 84 15 45 02/27/19 20:00 77 02/27/19 20:00 Mechanical Ventilator 02/27/19 20:00 98.3 78 15 126/77 (93) 99 02/27/19 20:00 45 02/27/19 18:50 81 16 45 02/27/19 17:24 77 17 45 02/27/19 16:00 81 02/27/19 16:00 45 02/27/19 16:00 98.9 79 15 106/69 (81) 98 02/27/19 16:00 Mechanical Ventilator 02/27/19 15:24 75 14 45 I&O Intake and Output 02/27/19 02/28/19 19:00 07:00 Intake Total 535 ml 1820.0 ml Balance 535 ml 1820.0 ml Intake Free Water 60 ml 60 ml IV Total 375 ml 1210.0 ml Tube Feeding 100 ml 550 ml # Bowel Movements 1 Dressing: saturated Wound: other Drains: other Cardiovascular: RSR Respiratory: decreased breath sounds Abdomen: soft, non-tender, present bowel sounds, non-distended Extremities: no cyanosis Laboratory Tests Test 02/27/19 20:00 02/28/19 05:00 Urine Color Pale yellow Urine Appearance Clear Urine pH 6.5 (4.5-8.0) Urine Specific [place] 1.010 (1.005-1.035) Urine Protein 1+ (NEGATIVE) H Urine Glucose (UA) Negative (NEGATIVE) Urine Ketones Negative (NEGATIVE) Urine Blood 2+ (NEGATIVE) H Urine Nitrite Negative (NEGATIVE) Urine Bilirubin Negative (NEGATIVE) Urine Urobilinogen Normal MG/DL (0.0-1.0) Urine Leukocyte Esterase Negative (NEGATIVE) Urine RBC 2-4 /HPF (0 - 2) H Urine WBC 0-2 /HPF (0 - 2) Urine Squamous Epithelial Cells Occasional /LPF Urine Bacteria None /HPF (NONE) Urine Yeast Moderate /HPF (NONE) H Urine Legionella Antigen Pending White Blood Count 13.4 K/UL (4.8-10.8) H Red Blood Count 3.17 M/UL (4.20-5.40) L Hemoglobin 8.2 G/DL (12.0-16.0) L Hematocrit 27.0 % (37.0-47.0) L Mean Corpuscular Volume 85 FL (80-99) Mean Corpuscular Hemoglobin 25.8 PG (27.0-31.0) L Mean Corpuscular Hemoglobin Concent 30.3 G/DL (32.0-36.0) L Red Cell Distribution Width 16.5 % (11.6-14.8) H Platelet Count 402 K/UL (150-450) Mean Platelet Volume 6.0 FL (6.5-10.1) L Neutrophils (%) (Auto) 78.8 % (45.0-75.0) H Lymphocytes (%) (Auto) 14.6 % (20.0-45.0) L Monocytes (%) (Auto) 3.0 % (1.0-10.0) Eosinophils (%) (Auto) 3.2 % (0.0-3.0) H Basophils (%) (Auto) 0.5 % (0.0-2.0) Sodium Level 144 MMOL/L (136-145) Potassium Level 4.1 MMOL/L (3.5-5.1) Chloride Level 106 MMOL/L (98-107) Carbon Dioxide Level 34 MMOL/L (21-32) H Anion Gap 4 mmol/L (5-15) L Blood Urea Nitrogen 12 mg/dL (7-18) Creatinine 0.4 MG/DL (0.55-1.30) L Estimat Glomerular Filtration Rate > 60 mL/min (>60) Glucose Level 147 MG/DL (74-106) H Calcium Level 10.2 MG/DL (8.5-10.1) H Calcium (Send out) Pending Total Bilirubin 0.1 MG/DL (0.2-1.0) L Aspartate Amino Transf (AST/SGOT) 18 U/L (15-37) Alanine Aminotransferase (ALT/SGPT) 67 U/L (12-78) Alkaline Phosphatase 106 U/L (46-116) Pro-B-Type Natriuretic Peptide 69 pg/mL (0-125) Total Protein 6.7 G/DL (6.4-8.2) Albumin 1.8 G/DL (3.4-5.0) L Globulin 4.9 g/dL Albumin/Globulin Ratio 0.4 (1.0-2.7) L Parathyroid Hormone (Intact) Pending Vancomycin Level Trough 13.2 ug/mL (5.0-12.0) H Plan Problems: (1) Decubitus skin ulcer Assessment & Plan: Pt presented on admission with unstageable wound L earlobe.Wound has 95% soft necrosis ,5% viable. (L)2.5cm x (W)0.7cm. Periwound earlobe extending into ear canal has darker than is normal skin tone. Full thickness sacral pressure injury with 10% slough otherwise wound is viable with measureable depth at coccyx. Pt flinches each time area is minimally palpated. ( L)2.5cm x (W)7.5cm x (D)0.4cm.Edges of wound macerated. Erythema periwound. Bilat heels firm and easily blanchable. Tx.PLan: Cleanse Sacral wound with Saline. Apply Therahoney .Apply Triad periwound.Cover with Optifoam drsg .Change daily and prn. Cleanse L ear with Saline. Apply Therahoney. Cover with Optifoam drsg .Change Daily and prn. Apply Cavilon to both heels .Cover each heel with Optifoam drsg. Change every 7 days and prn. Please maintain Foam Mold around L ear to reduce pressure from ear. Reposition at least every 2 hours or as tolerated. Off-load heels with Pillow. APM/SYLVIA mattress. (2) Functional quadriplegia Levon Nunes Feb 28, 2019 13:58
--- NOTE | 2019-02-28 14:58 | Infectious Diseases Prog Note ---
Assessment/Plan Assessment/Plan Abx: IV Vancomycin 02/24- Zosyn 02/24- CEfepime x1 02/24 Levaquin x1 02/24 Assessment: Sepsis 2ryt o Probable PNA and UTI -CXR: Diffuse opacity projected over the left hemithorax. Suspect pleural disease either pleural effusion or pleural thickening. Difficult to exclude underlying parenchymal disease. -sp cx GNR -u/a wbc 10-15, nit neg, leuk +3; ucx p -influenza sc neg Afebrile Leukocytosis, improving Elevated LFTs chronic respiratory failure s/p trach/vent PEG anxiety schizoaffective disorder shelter resident Plan: -D/c empiric IV Vancomycin and Zosyn #5 and start INH Colistin and Minocycline for MDR ABC sp -02/24 SP Cefepime and LEvaquin x1 -f.u cx -Monitor CBC/CMP, temperatures -f/u legionella ag urince -PEG/Trach care -CBC, CMP am Will continue to follow along with you. Subjective Allergies: Coded Allergies: DIPHENHYDRAMINE (Verified Allergy, Unknown, 02/24/19) FLUPHENAZINE (Verified Allergy, Unknown, 02/24/19) Subjective afebrile wbc increased sp cx MDR ABC Objective Vital Signs Last 24 Hour Vital Signs Date Time Temp Pulse Resp B/P (MAP) Pulse Ox O2 Delivery O2 Flow Rate FiO2 02/28/19 13:10 72 17 40 02/28/19 12:00 Mechanical Ventilator 02/28/19 12:00 98.2 78 16 129/75 (93) 99 02/28/19 12:00 74 02/28/19 12:00 45 02/28/19 11:06 76 15 40 02/28/19 09:10 81 17 40 02/28/19 08:00 81 02/28/19 08:00 45 02/28/19 08:00 Mechanical Ventilator 02/28/19 08:00 98.1 79 16 131/77 (95) 100 02/28/19 07:00 79 17 40 02/28/19 05:03 74 17 40 02/28/19 04:00 74 02/28/19 04:00 98.0 76 18 139/80 (99) 100 02/28/19 04:00 Mechanical Ventilator 02/28/19 04:00 45 02/28/19 02:51 81 16 45 02/28/19 00:40 76 15 45 02/28/19 00:00 98.5 73 15 121/81 (94) 100 02/28/19 00:00 Mechanical Ventilator 02/27/19 22:49 77 15 45 02/27/19 20:39 84 15 45 02/27/19 20:00 77 02/27/19 20:00 Mechanical Ventilator 02/27/19 20:00 98.3 78 15 126/77 (93) 99 02/27/19 20:00 45 02/27/19 18:50 81 16 45 02/27/19 17:24 77 17 45 02/27/19 16:00 81 02/27/19 16:00 45 02/27/19 16:00 98.9 79 15 106/69 (81) 98 02/27/19 16:00 Mechanical Ventilator 02/27/19 15:24 75 14 45 Height (Feet): 5 Height (Inches): 6.00 Weight (Pounds): 175 Objective General. NAD, On vent 45% HEENT: NCAT, MMM, PERRL, Trached Respiratory/Chest: Course B/L Cardiovascular/Chest: RR, S1, S2, Abdomen: normal bowel sounds, Not distended Microbiology Date/Time Source Procedure Growth Status 02/27/19 20:00 Urine,Clean Catch Urine Culture - Preliminary NO GROWTH Resulted Laboratory Tests Test 02/27/19 20:00 02/28/19 05:00 Urine Color Pale yellow Urine Appearance Clear Urine pH 6.5 (4.5-8.0) Urine Specific [place] 1.010 (1.005-1.035) Urine Protein 1+ (NEGATIVE) H Urine Glucose (UA) Negative (NEGATIVE) Urine Ketones Negative (NEGATIVE) Urine Blood 2+ (NEGATIVE) H Urine Nitrite Negative (NEGATIVE) Urine Bilirubin Negative (NEGATIVE) Urine Urobilinogen Normal MG/DL (0.0-1.0) Urine Leukocyte Esterase Negative (NEGATIVE) Urine RBC 2-4 /HPF (0 - 2) H Urine WBC 0-2 /HPF (0 - 2) Urine Squamous Epithelial Cells Occasional /LPF Urine Bacteria None /HPF (NONE) Urine Yeast Moderate /HPF (NONE) H Urine Legionella Antigen Pending White Blood Count 13.4 K/UL (4.8-10.8) H Red Blood Count 3.17 M/UL (4.20-5.40) L Hemoglobin 8.2 G/DL (12.0-16.0) L Hematocrit 27.0 % (37.0-47.0) L Mean Corpuscular Volume 85 FL (80-99) Mean Corpuscular Hemoglobin 25.8 PG (27.0-31.0) L Mean Corpuscular Hemoglobin Concent 30.3 G/DL (32.0-36.0) L Red Cell Distribution Width 16.5 % (11.6-14.8) H Platelet Count 402 K/UL (150-450) Mean Platelet Volume 6.0 FL (6.5-10.1) L Neutrophils (%) (Auto) 78.8 % (45.0-75.0) H Lymphocytes (%) (Auto) 14.6 % (20.0-45.0) L Monocytes (%) (Auto) 3.0 % (1.0-10.0) Eosinophils (%) (Auto) 3.2 % (0.0-3.0) H Basophils (%) (Auto) 0.5 % (0.0-2.0) Sodium Level 144 MMOL/L (136-145) Potassium Level 4.1 MMOL/L (3.5-5.1) Chloride Level 106 MMOL/L (98-107) Carbon Dioxide Level 34 MMOL/L (21-32) H Anion Gap 4 mmol/L (5-15) L Blood Urea Nitrogen 12 mg/dL (7-18) Creatinine 0.4 MG/DL (0.55-1.30) L Estimat Glomerular Filtration Rate > 60 mL/min (>60) Glucose Level 147 MG/DL (74-106) H Calcium Level 10.2 MG/DL (8.5-10.1) H Calcium (Send out) Pending Total Bilirubin 0.1 MG/DL (0.2-1.0) L Aspartate Amino Transf (AST/SGOT) 18 U/L (15-37) Alanine Aminotransferase (ALT/SGPT) 67 U/L (12-78) Alkaline Phosphatase 106 U/L (46-116) Pro-B-Type Natriuretic Peptide 69 pg/mL (0-125) Total Protein 6.7 G/DL (6.4-8.2) Albumin 1.8 G/DL (3.4-5.0) L Globulin 4.9 g/dL Albumin/Globulin Ratio 0.4 (1.0-2.7) L Parathyroid Hormone (Intact) Pending Vancomycin Level Trough 13.2 ug/mL (5.0-12.0) H Current Medications Medications (Trade) Dose Ordered Sig/Lavon Route PRN Reason Start Time Stop Time Status Last Admin Dose Admin Dextrose/Sodium Chloride 1,000 ml @ 100 mls/hr Q10H IV 02/24/19 16:00 03/26/19 15:59 02/28/19 10:18 Heparin Sodium (Porcine) (Heparin 5000 units/ml) 5,000 units EVERY 12 HOURS SUBQ 02/24/19 21:00 03/26/19 20:59 02/28/19 08:25 Pantoprazole (Protonix) 40 mg DAILY IVP 02/25/19 09:00 03/27/19 08:59 02/28/19 08:26 Piperacillin Sod/ Tazobactam Sod 3.375 gm/Dextrose 110 ml @ 27.5 mls/hr Q8HR IVPB 02/24/19 18:00 03/03/19 17:59 02/28/19 14:35 Vancomycin HCl (Vanco rx to dose) 1 ea DAILY PRN MISC Per rx protocol 02/24/19 16:00 03/26/19 15:59 Vancomycin HCl 1.25 gm/Dextrose 275 ml @ 183.708 mls/hr Q12H IVPB 02/28/19 17:00 03/03/19 16:59 Renae Conteh M.D. Feb 28, 2019 14:58
--- NOTE | 2019-02-28 15:42 | Diagnostic Imaging Report ---
Indication: Abnormal liver function tests Technique: Ray-scale and duplex images of the upper abdomen were obtained Comparison: none Findings: Gallbladder demonstrates gallstones. No gallbladder wall thickening nor pericholecystic fluid. Sonographic Mora's sign could not be determined due to patient condition. Common bile duct measures 5 mm in diameter. No intrahepatic biliary ductal dilatation. Liver demonstrates normal echogenicity, no focal abnormality. It is somewhat enlarged. Portal vein and hepatic veins are patent. Pancreas is unremarkable. Spleen is unremarkable. Left kidney measures lung 0.4 cm in length. Right kidney measures 11.7 cm length. Both kidneys demonstrate normal echogenicity. There is no hydronephrosis. Both kidneys demonstrate small simple cortical cysts. . Non-aneurysmal abdominal aorta . Impression: Cholelithiasis. Negative for dilated bile ducts Borderline hepatomegaly Incidental finding of bilateral renal cysts
--- NOTE | 2019-02-28 15:53 | NUR ---
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 SEPSIS VS: BP 131/77, P 72, T 98.1, RR 15, SpO2 100 VENT AC 14, TV 450, PEEP 5.0, FiO2 40 WBC 13.4, RBC 3.17, HGB 8.2, HCT 27.0, CR 0.4 CXR Impression: Atelectasis and possibly slight developing infiltrate at the right lung base. ABDOMEN US Impression: Cholelithiasis. Negative for dilated bile duct. IS:COLISTIN 150mg INH MINOCYCLINE HCI 100mg VANCOMYCIN 275ml PROTONIX 40mg IVP HEPARIN SUBQ PIPERACILLIN 110ml D5/NS x1L IV SDU STATUS
[2019-02-28 16:00] VITALS: BP 148/81
[2019-02-28] MEDS ORDERED: Minocycline HCl 50mg cap ORAL SCH (16:00)
--- NOTE | 2019-02-28 16:00 | NUR ---
NURSE NOTES: VSS. No distress noted. Will continue plan of care. Turned and repositioned BM x1. Pasty, moderate, brownish green.
--- NOTE | 2019-02-28 16:46 | Diagnostic Imaging Report ---
APPROVED REPORT CPT Code: 64979 Symptoms Comments: R/O occlusion RIGHT LEG: Common femoral artery waveform analysis is within normal limits at rest. Color flow duplex sonography reveals calcification throughout the superficial femoral and popliteal arteries. The tibioperoneal trunk was not well visualized. The distal posterior tibial, anterior tibial and dorsalis pedis arteries are patent . Doppler tibial artery waveform analysis is compatible with minimal ischemia at rest. LEFT LEG: Common femoral artery waveform analysis is within normal limits at rest. Color flow duplex sonography reveals calcification throughout the superficial femoral and popliteal arteries. There is no evidence of stenosis or occlusion within these segments. The tibioperoneal trunk was not well visualized. The distal posterior tibial, anterior tibial and dorsalis pedis arteries are patent. Doppler tibial artery waveform analysis is within normal limits at rest.
[2019-02-28] MEDS ORDERED: Vancomycin 1.25 GM in D5W 275 ML IVPB SCH (17:00)
--- NOTE | 2019-02-28 19:19 | NUR ---
HAND-OFF: Report given to DB Culver using SBAR. VSS. No distress noted.
[2019-02-28 20:00] VITALS: BP 149/93
--- NOTE | 2019-02-28 20:00 | NUR ---
NURSE NOTES: Receive patient eyes open, unable to follow command. cardiac monitor shwoing SR. Protex 7 AC 14 VT 450 FiO2 45% Peep of 5. No distress noted. Feeding held due to upcoming abdominal ultrasound. Turned and repositioned. Stage 3 sacral ulcer and L ear ulcer noted. R hand 20 L wrist 20. D51/2NS at 100 cc/hr. Labs within normal limits. Lung sounds diminished bilaterally. Hypoactive bowel sounds on all 4 quadrants present. Will continue to monitor patient.
[2019-02-28] MEDS: Minocycline HCl 50mg cap ORAL SCH (20:12)
[2019-02-28] MEDS: Colistin for inhalation INH SCH (22:00)
[2019-03-01] VITALS: BP 91/54
--- NOTE | 2019-03-01 | NUR ---
NURSE NOTES: Patient repositioned, suctioned, oral care given. Patient had BM earlier, brown liquid diarrhea.
[2019-03-01 04:00] VITALS: BP 137/92
--- NOTE | 2019-03-01 04:00 | NUR ---
NURSE NOTES: Patient cleaned and suctioned. Rectal tube inserted for diarrhea. C-diff collected and sent to lab.
--- NOTE | 2019-03-01 05:15 | Progress Note ---
DATE: 02/28/2019 SUBJECTIVE: The patient is afebrile and hemodynamically stable. PHYSICAL EXAMINATION: VITAL SIGNS: Blood pressure 149/93, his pulse is 81, respirations 16, and temperature 98.1. HEENT: Eyes were normal. ENT, mucous membranes were moist and intact. NECK: Supple with no JVD without lymph nodes. Tracheostomy site is clean. LUNGS: Clear without rhonchi, rales, or wheezing. Secretions are small, thin, and robison. HEART: Normal sounds with regular beats. There is no S3, S4, or pericardial rub. ABDOMEN: Soft and nontender with normal bowel sounds. Gastrostomy site is clean. EXTREMITIES: Warm without cyanosis, clubbing, or edema. LABORATORY DATA: Hemoglobin is 8.2, hematocrit 27.0 with MCV of 65, WBC of 13.4, and platelets of 402,000. BUN and creatinine is 12 and 0.4 respectively. Her sodium is 144, potassium 4.5, chloride 106, and CO2 is 34. His calcium is 10.2. SGOT and SGPT are normal. IMPRESSION AND PLAN: The patient with dislocation of the left shoulder . The patient's WBC has increased from 11.9 to 13.4. Repeat laboratory tests will be done in the a.m. The patient is being followed by Infectious Disease, Pulmonary, and Nephrology. Bassem Bruce M.D. DR: MARY JOB#: [id number] CC: [id number]
[2019-03-01 05:45] LABS: BASOPHILS % (AUTO) 0.8 % (0.0-2.0); HEMATOCRIT 29.8 % (37.0-47.0); HEMOGLOBIN 9.2 G/DL (12.0-16.0); LYMPHOCYTES % (AUTO) 14.9 % (20.0-45.0); MEAN CORPUSCULAR VOLUME 85 FL (80-99); NEUTROPHILS % (AUTO) 79.2 % (45.0-75.0); PLATELET COUNT 440 K/UL (150-450); RED BLOOD COUNT 3.49 M/UL (4.20-5.40); RED CELL DISTRIBUTION WIDTH 16.6 % (11.6-14.8); WHITE BLOOD COUNT 13.8 K/UL (4.8-10.8)
[2019-03-01 05:53] LABS: ALANINE AMINOTRANSFERASE 71 U/L (12-78); ALBUMIN/GLOBULIN RATIO 0.4 (1.0-2.7); ALKALINE PHOSPHATASE 121 U/L (46-116); ANION GAP 4 mmol/L (5-15); ASPARTATE AMINO TRANSFERASE 24 U/L (15-37); BILIRUBIN,TOTAL 0.1 MG/DL (0.2-1.0); BLOOD UREA NITROGEN 11 mg/dL (7-18); CARBON DIOXIDE 34 MMOL/L (21-32); CHLORIDE 104 MMOL/L (98-107); CREATININE 0.3 MG/DL (0.55-1.30); PHOSPHORUS 3.5 MG/DL (2.5-4.9); POTASSIUM 4.2 MMOL/L (3.5-5.1); SODIUM 142 MMOL/L (136-145)
[2019-03-01] MEDS: D5 1/2NS 1,000 ML IV SCH ×2 (06:00→16:18)
--- NOTE | 2019-03-01 07:25 | NUR ---
NURSE NOTES: Patient received lying in bed, asleep, no signs of pain noted. On trach to vent: AC- 14, TV 450, Fio2 40%, PEEP-5, no respiratory distress, suctioning provided. On tube feeding TwoCal at 50 ml/hr, HOB elevated for aspiration precaution. Right hand IV running D5 1/2 NS at 100 ml/hr. Cormier in place and draining to yellow urine. Rectal tube in place, will monitor output. Sinus Rhythm on the monitor. Extremities elevated. Will continue to monitor patient.
[2019-03-01 08:00] VITALS: BP 105/70
[2019-03-01] MEDS: Minocycline HCl 50mg cap ORAL SCH ×2 (08:39→20:30)
[2019-03-01] MEDS: Pantoprazole Inj IVP SCH (08:39)
[2019-03-01] MEDS: Heparin 5000 units/ml inj SUBQ SCH ×2 (08:40→20:33)
--- NOTE | 2019-03-01 09:00 | NUR ---
NURSE NOTES: Patient comfortable in bed. Respirations even and unlabored. No signs of pain noted.
[2019-03-01] MEDS: Colistin for inhalation INH SCH ×2 (09:37→22:48)
--- NOTE | 2019-03-01 11:03 | Pulmonolgy Critical Care Note ---
Critical Care - Asmt/Plan Problems: (1) Acute and chronic respiratory failure (2) MDRO (multiple drug resistant organisms) resistance (3) Pneumonia involving left lung (4) Sepsis (5) Severe anemia (6) UTI (urinary tract infection) (7) Feeding by G-tube (8) Functional quadriplegia Respiratory: monitor respiratory rate, adjust FIO2, CXR Cardiac: continue pressors, continue to monitor HR/BP Renal: F/U I&O, keep IV fluid Infectious Disease: check cultures, continue antibiotics Gastrointestinal: abdominal imaging Endocrine: monitor blood sugar, check HgA1C Hematologic: transfuse if hgb<8.5 Neurologic: PRN Ativan, keep patient comfortable Affect: PRN ativan 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, 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 Discussed with: nurses, consultants, 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 - Objective Last 24 Hour Vital Signs Date Time Temp Pulse Resp B/P (MAP) Pulse Ox O2 Delivery O2 Flow Rate FiO2 03/01/19 09:49 83 14 100 Mechanical Ventilator 40 03/01/19 09:36 40 03/01/19 09:36 86 16 40 03/01/19 09:36 84 16 Mechanical Ventilator 40 03/01/19 09:36 84 16 99 Mechanical Ventilator 40 03/01/19 08:00 40 03/01/19 08:00 98.2 88 18 105/70 (82) 100 03/01/19 08:00 Mechanical Ventilator 03/01/19 07:03 87 15 40 03/01/19 05:28 85 14 40 40 03/01/19 04:00 97.7 110 17 137/92 (107) 100 03/01/19 04:00 Mechanical Ventilator 03/01/19 04:00 113 03/01/19 04:00 45 03/01/19 02:43 87 15 40 40 03/01/19 01:05 94 16 40 40 03/01/19 00:00 Mechanical Ventilator 03/01/19 00:00 97.7 85 16 91/54 (66) 99 03/01/19 00:00 93 03/01/19 00:00 45 02/28/19 23:01 90 18 40 40 02/28/19 20:57 80 16 40 40 02/28/19 20:00 84 02/28/19 20:00 98.1 81 16 149/93 (111) 98 02/28/19 20:00 Mechanical Ventilator 02/28/19 20:00 45 02/28/19 19:25 83 19 40 40 02/28/19 17:17 82 22 40 02/28/19 16:00 76 02/28/19 16:00 Mechanical Ventilator 02/28/19 16:00 98.4 86 16 148/81 (103) 97 02/28/19 16:00 45 02/28/19 15:29 82 15 40 02/28/19 13:10 72 17 40 02/28/19 12:00 Mechanical Ventilator 02/28/19 12:00 98.2 78 16 129/75 (93) 99 02/28/19 12:00 74 02/28/19 12:00 45 02/28/19 11:06 76 15 40 Status: awake Condition: critical Lungs: chest wall tender Heart: HR/BP stable Abdomen: soft, non-tender, active bowel sounds Extremities: no C/C/E Micro: Microbiology Date/Time Source Procedure Growth Status 02/27/19 20:00 Urine,Clean Catch Urine Culture - Preliminary Resulted Accucheck: 171 Critical Care - Subjective ROS Limited/Unobtainable: Yes Condition: critical FI02: 40 Vent Support Breath Rate: 14 Vent Support Mode: AC Vent Tidal Volume: 450 Sputum Amount: Moderate PEEP: 5.0 PIP: 27 Tube Feeding Amount: 50 I&O: Intake and Output 02/28/19 03/01/19 19:00 07:00 Intake Total 400 ml 1550 ml Output Total 1200 ml 1300 ml Balance -800 ml 250 ml IV Total 1000 ml Tube Feeding 400 ml 550 ml Output Urine Total 1200 ml 1300 ml # Bowel Movements 1 CXR: No change Labs: Laboratory Tests Test 03/01/19 04:30 White Blood Count 13.8 K/UL (4.8-10.8) H Red Blood Count 3.49 M/UL (4.20-5.40) L Hemoglobin 9.2 G/DL (12.0-16.0) L Hematocrit 29.8 % (37.0-47.0) L Mean Corpuscular Volume 85 FL (80-99) Mean Corpuscular Hemoglobin 26.4 PG (27.0-31.0) L Mean Corpuscular Hemoglobin Concent 31.0 G/DL (32.0-36.0) L Red Cell Distribution Width 16.6 % (11.6-14.8) H Platelet Count 440 K/UL (150-450) Mean Platelet Volume 5.1 FL (6.5-10.1) L Neutrophils (%) (Auto) 79.2 % (45.0-75.0) H Lymphocytes (%) (Auto) 14.9 % (20.0-45.0) L Monocytes (%) (Auto) 3.0 % (1.0-10.0) Eosinophils (%) (Auto) 2.0 % (0.0-3.0) Basophils (%) (Auto) 0.8 % (0.0-2.0) Sodium Level 142 MMOL/L (136-145) Potassium Level 4.2 MMOL/L (3.5-5.1) Chloride Level 104 MMOL/L (98-107) Carbon Dioxide Level 34 MMOL/L (21-32) H Anion Gap 4 mmol/L (5-15) L Blood Urea Nitrogen 11 mg/dL (7-18) Creatinine 0.3 MG/DL (0.55-1.30) L Estimat Glomerular Filtration Rate > 60 mL/min (>60) Glucose Level 136 MG/DL (74-106) H Calcium Level 11.0 MG/DL (8.5-10.1) H Phosphorus Level 3.5 MG/DL (2.5-4.9) Magnesium Level 2.1 MG/DL (1.8-2.4) Total Bilirubin 0.1 MG/DL (0.2-1.0) L Aspartate Amino Transf (AST/SGOT) 24 U/L (15-37) Alanine Aminotransferase (ALT/SGPT) 71 U/L (12-78) Alkaline Phosphatase 121 U/L (46-116) H Total Protein 7.1 G/DL (6.4-8.2) Albumin 2.0 G/DL (3.4-5.0) L Globulin 5.1 g/dL Albumin/Globulin Ratio 0.4 (1.0-2.7) L Rula Corrigan MD Mar 01, 2019 11:03
--- NOTE | 2019-03-01 11:43 | Surgery Progress Note ---
Surgery Progress Note Subjective Additional Comments drainage noted around left ear. scab with drainage from underneath. scab removed and wound cleaned. no abscess noted. wound open and needs further care Objective Last 24 Hour Vital Signs Date Time Temp Pulse Resp B/P (MAP) Pulse Ox O2 Delivery O2 Flow Rate FiO2 03/01/19 11:04 78 16 40 03/01/19 09:49 83 14 100 Mechanical Ventilator 40 03/01/19 09:36 40 03/01/19 09:36 86 16 40 03/01/19 09:36 84 16 Mechanical Ventilator 40 03/01/19 09:36 84 16 99 Mechanical Ventilator 40 03/01/19 08:00 40 03/01/19 08:00 98.2 88 18 105/70 (82) 100 03/01/19 08:00 76 03/01/19 08:00 Mechanical Ventilator 03/01/19 07:03 87 15 40 03/01/19 05:28 85 14 40 40 03/01/19 04:00 97.7 110 17 137/92 (107) 100 03/01/19 04:00 Mechanical Ventilator 03/01/19 04:00 113 03/01/19 04:00 45 03/01/19 02:43 87 15 40 40 03/01/19 01:05 94 16 40 40 03/01/19 00:00 Mechanical Ventilator 03/01/19 00:00 97.7 85 16 91/54 (66) 99 03/01/19 00:00 93 03/01/19 00:00 45 02/28/19 23:01 90 18 40 40 02/28/19 20:57 80 16 40 40 02/28/19 20:00 84 02/28/19 20:00 98.1 81 16 149/93 (111) 98 02/28/19 20:00 Mechanical Ventilator 02/28/19 20:00 45 02/28/19 19:25 83 19 40 40 02/28/19 17:17 82 22 40 02/28/19 16:00 76 02/28/19 16:00 Mechanical Ventilator 02/28/19 16:00 98.4 86 16 148/81 (103) 97 02/28/19 16:00 45 02/28/19 15:29 82 15 40 02/28/19 13:10 72 17 40 02/28/19 12:00 Mechanical Ventilator 02/28/19 12:00 98.2 78 16 129/75 (93) 99 02/28/19 12:00 74 02/28/19 12:00 45 I&O Intake and Output 02/28/19 03/01/19 19:00 07:00 Intake Total 400 ml 1550 ml Output Total 1200 ml 1300 ml Balance -800 ml 250 ml IV Total 1000 ml Tube Feeding 400 ml 550 ml Output Urine Total 1200 ml 1300 ml # Bowel Movements 1 Dressing: saturated Wound: other Drains: other Cardiovascular: RSR Respiratory: decreased breath sounds Abdomen: soft, present bowel sounds, non-distended Extremities: no cyanosis Laboratory Tests Test 03/01/19 04:30 White Blood Count 13.8 K/UL (4.8-10.8) H Red Blood Count 3.49 M/UL (4.20-5.40) L Hemoglobin 9.2 G/DL (12.0-16.0) L Hematocrit 29.8 % (37.0-47.0) L Mean Corpuscular Volume 85 FL (80-99) Mean Corpuscular Hemoglobin 26.4 PG (27.0-31.0) L Mean Corpuscular Hemoglobin Concent 31.0 G/DL (32.0-36.0) L Red Cell Distribution Width 16.6 % (11.6-14.8) H Platelet Count 440 K/UL (150-450) Mean Platelet Volume 5.1 FL (6.5-10.1) L Neutrophils (%) (Auto) 79.2 % (45.0-75.0) H Lymphocytes (%) (Auto) 14.9 % (20.0-45.0) L Monocytes (%) (Auto) 3.0 % (1.0-10.0) Eosinophils (%) (Auto) 2.0 % (0.0-3.0) Basophils (%) (Auto) 0.8 % (0.0-2.0) Sodium Level 142 MMOL/L (136-145) Potassium Level 4.2 MMOL/L (3.5-5.1) Chloride Level 104 MMOL/L (98-107) Carbon Dioxide Level 34 MMOL/L (21-32) H Anion Gap 4 mmol/L (5-15) L Blood Urea Nitrogen 11 mg/dL (7-18) Creatinine 0.3 MG/DL (0.55-1.30) L Estimat Glomerular Filtration Rate > 60 mL/min (>60) Glucose Level 136 MG/DL (74-106) H Calcium Level 11.0 MG/DL (8.5-10.1) H Phosphorus Level 3.5 MG/DL (2.5-4.9) Magnesium Level 2.1 MG/DL (1.8-2.4) Total Bilirubin 0.1 MG/DL (0.2-1.0) L Aspartate Amino Transf (AST/SGOT) 24 U/L (15-37) Alanine Aminotransferase (ALT/SGPT) 71 U/L (12-78) Alkaline Phosphatase 121 U/L (46-116) H Total Protein 7.1 G/DL (6.4-8.2) Albumin 2.0 G/DL (3.4-5.0) L Globulin 5.1 g/dL Albumin/Globulin Ratio 0.4 (1.0-2.7) L Plan Problems: (1) Decubitus skin ulcer Assessment & Plan: Pt presented on admission with unstageable wound L earlobe.Wound has 95% soft necrosis ,5% viable. (L)2.5cm x (W)0.7cm. Periwound earlobe extending into ear canal has darker than is normal skin tone. Full thickness sacral pressure injury with 10% slough otherwise wound is viable with measureable depth at coccyx. Pt flinches each time area is minimally palpated. ( L)2.5cm x (W)7.5cm x (D)0.4cm.Edges of wound macerated. Erythema periwound. Bilat heels firm and easily blanchable. Tx.PLan: Cleanse Sacral wound with Saline. Apply Therahoney .Apply Triad periwound.Cover with Optifoam drsg .Change daily and prn. Cleanse L ear with Saline. Apply Bactroban . Cover with Optifoam drsg .Change Daily and prn. Apply Cavilon to both heels .Cover each heel with Optifoam drsg. Change every 7 days and prn. Please maintain Foam Mold around L ear to reduce pressure from ear. Reposition at least every 2 hours or as tolerated. Off-load heels with Pillow. APM/SYLVIA mattress. (2) Functional quadriplegia Benyamini,Levon Mar 01, 2019 11:43
--- NOTE | 2019-03-01 11:54 | NUR ---
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 SEPSIS VS: BP 105/70, P 76, T 98.2, RR 14, SpO2 99 on VENT AC , TV , PEEP , FiO2 40 IS:COLISTIN 150mg INH MINOCYCLINE HCI 100mg VANCOMYCIN 275ml PROTONIX 40mg IVP HEPARIN SUBQ PIPERACILLIN 110ml D5/NS x1L IV SDU STATUS
[2019-03-01 12:00] VITALS: BP 160/86
--- NOTE | 2019-03-01 13:10 | NUR ---
NURSE NOTES: Patient lying in bed, resting. Mupirocin ointment applied to left ear. No acute distress. Suctioning provided. Will continue to monitor the patient.
--- NOTE | 2019-03-01 14:20 | NUR ---
*-* INSURANCE *-* ALL CLINICALS AND REVIEWS HAVE BEEN FAXED TO: [employer] P- [phone] F- [phone]
--- NOTE | 2019-03-01 14:53 | NUR ---
RD ASSESSMENT & RECOMMENDATIONS SEE CARE ACTIVITY FOR COMPLETE ASSESSMENT DAILY ESTIMATED NEEDS: Needs based on Critical care, wounds 63kg 22-30 kcals/kg 3648-2874 total kcals 1.25-2 g protein/kg 79-126 g total protein 25-30 mL/kg 6794-8309 total fluid mLs NUTRITION DIAGNOSIS: 1) Swallowing difficulty r/t respiratory status as evidenced by pt is vent dep via trach, GT dep, on tube feeds. 2) Increased kcal and protein needs r/t wound healing as evidenced by pt w/ full thickness sacral wound, L ear wound unstageable. CURRENT TF:2cal @50ml ENTERAL NUTRITION RECOMMENDATIONS: TF CHANGE TO -> VITAL AF 1.2 @50ml/hr x24 hrs to provide 1200ml, 1440 kcal, 90g pro, 973ml free H2O - REC TF CHANGE TO VITAL AF 1.2, start @30ml/hr, advance as tolerated 10ml q4-6 hrs to goal - Flush per MD. HOB over 30 degrees ADDITIONAL RECOMMENDATIONS: 1) PER SNF: pt is 139#, 65inches tall 2) Add ALEENA BID via GT daily Add Vit C 250mmg BID 3) Rec SSI, bedside blood checks 4) Check lytes daily, replete as needed (03/01, lytes wnl) 5) Weekly CALIBRATED bed scale wts
--- NOTE | 2019-03-01 15:05 | NUR ---
NURSE NOTES: Patient given a bed bath. Rectal tube noted to be leaking. Perineal care provided. Patient repositioned, extremities elevated.
--- NOTE | 2019-03-01 15:30 | NUR ---
NURSE NOTES:WOUND CARE FOLLOW-UP NOTES:Pt seen along with .L ear oozing small amt purulent exudate . Eschar cap removed by . Base of wound moist with Biofilm . Dark discoloration noted to ear canal and posterior earlobe. No odor noted .New orders for Bactroban oint Twice daily ordered by . Shearing with partial thickness pressure injury sacrum. Periwound without erythema or induration. No new skin concerns noted
[2019-03-01 16:00] VITALS: BP 112/75
--- NOTE | 2019-03-01 16:16 | Infectious Diseases Prog Note ---
Assessment/Plan Assessment/Plan Assessment: Sepsis 2ryt o Probable PNA and UTI -CXR: Diffuse opacity projected over the left hemithorax. Suspect pleural disease either pleural effusion or pleural thickening. Difficult to exclude underlying parenchymal disease. -sp cx MDR ABC (S minocycline, colistin, polymixin B) -u/a wbc 10-15, nit neg, leuk +3; ucx p -influenza sc neg Afebrile Leukocytosis, improving Elevated LFTs chronic respiratory failure s/p trach/vent PEG anxiety schizoaffective disorder [facility] resident Plan: -Cont INH Colistin and Minocycline #2 for MDR ABC sp -02/28 SP IV Vancomycin and Zosyn #5 -02/24 SP Cefepime and LEvaquin x1 -f.u cx -Monitor CBC/CMP, temperatures -f/u legionella ag urince -PEG/Trach care Will continue to follow along with you. Subjective Allergies: Coded Allergies: DIPHENHYDRAMINE (Verified Allergy, Unknown, 02/24/19) FLUPHENAZINE (Verified Allergy, Unknown, 02/24/19) Subjective afebrile wbc persistent on 13 sp cx MDR ABC Objective Vital Signs Last 24 Hour Vital Signs Date Time Temp Pulse Resp B/P (MAP) Pulse Ox O2 Delivery O2 Flow Rate FiO2 03/01/19 15:12 84 15 40 03/01/19 12:53 95 17 40 03/01/19 12:00 93 03/01/19 12:00 Mechanical Ventilator 03/01/19 12:00 98.1 90 18 160/86 (110) 99 03/01/19 12:00 40 03/01/19 11:04 78 16 40 03/01/19 09:49 83 14 100 Mechanical Ventilator 40 03/01/19 09:36 40 03/01/19 09:36 86 16 40 03/01/19 09:36 84 16 Mechanical Ventilator 40 03/01/19 09:36 84 16 99 Mechanical Ventilator 40 03/01/19 08:00 40 03/01/19 08:00 98.2 88 18 105/70 (82) 100 03/01/19 08:00 76 03/01/19 08:00 Mechanical Ventilator 03/01/19 07:03 87 15 40 03/01/19 05:28 85 14 40 40 03/01/19 04:00 97.7 110 17 137/92 (107) 100 03/01/19 04:00 Mechanical Ventilator 03/01/19 04:00 113 03/01/19 04:00 45 03/01/19 02:43 87 15 40 40 03/01/19 01:05 94 16 40 40 03/01/19 00:00 Mechanical Ventilator 03/01/19 00:00 97.7 85 16 91/54 (66) 99 03/01/19 00:00 93 03/01/19 00:00 45 02/28/19 23:01 90 18 40 40 02/28/19 20:57 80 16 40 40 02/28/19 20:00 84 02/28/19 20:00 98.1 81 16 149/93 (111) 98 02/28/19 20:00 Mechanical Ventilator 02/28/19 20:00 45 02/28/19 19:25 83 19 40 40 02/28/19 17:17 82 22 40 Height (Feet): 5 Height (Inches): 6.00 Weight (Pounds): 175 Objective General. NAD, On vent 45% HEENT: NCAT, MMM, PERRL, Trached Respiratory/Chest: Course B/L Cardiovascular/Chest: RR, S1, S2, Abdomen: normal bowel sounds, Not distended Microbiology Date/Time Source Procedure Growth Status 02/27/19 20:00 Urine,Clean Catch Urine Culture - Preliminary Resulted Laboratory Tests Test 03/01/19 04:30 White Blood Count 13.8 K/UL (4.8-10.8) H Red Blood Count 3.49 M/UL (4.20-5.40) L Hemoglobin 9.2 G/DL (12.0-16.0) L Hematocrit 29.8 % (37.0-47.0) L Mean Corpuscular Volume 85 FL (80-99) Mean Corpuscular Hemoglobin 26.4 PG (27.0-31.0) L Mean Corpuscular Hemoglobin Concent 31.0 G/DL (32.0-36.0) L Red Cell Distribution Width 16.6 % (11.6-14.8) H Platelet Count 440 K/UL (150-450) Mean Platelet Volume 5.1 FL (6.5-10.1) L Neutrophils (%) (Auto) 79.2 % (45.0-75.0) H Lymphocytes (%) (Auto) 14.9 % (20.0-45.0) L Monocytes (%) (Auto) 3.0 % (1.0-10.0) Eosinophils (%) (Auto) 2.0 % (0.0-3.0) Basophils (%) (Auto) 0.8 % (0.0-2.0) Sodium Level 142 MMOL/L (136-145) Potassium Level 4.2 MMOL/L (3.5-5.1) Chloride Level 104 MMOL/L (98-107) Carbon Dioxide Level 34 MMOL/L (21-32) H Anion Gap 4 mmol/L (5-15) L Blood Urea Nitrogen 11 mg/dL (7-18) Creatinine 0.3 MG/DL (0.55-1.30) L Estimat Glomerular Filtration Rate > 60 mL/min (>60) Glucose Level 136 MG/DL (74-106) H Calcium Level 11.0 MG/DL (8.5-10.1) H Phosphorus Level 3.5 MG/DL (2.5-4.9) Magnesium Level 2.1 MG/DL (1.8-2.4) Total Bilirubin 0.1 MG/DL (0.2-1.0) L Aspartate Amino Transf (AST/SGOT) 24 U/L (15-37) Alanine Aminotransferase (ALT/SGPT) 71 U/L (12-78) Alkaline Phosphatase 121 U/L (46-116) H Total Protein 7.1 G/DL (6.4-8.2) Albumin 2.0 G/DL (3.4-5.0) L Globulin 5.1 g/dL Albumin/Globulin Ratio 0.4 (1.0-2.7) L Current Medications Medications (Trade) Dose Ordered Sig/Lavon Route PRN Reason Start Time Stop Time Status Last Admin Dose Admin Colistimethate Sodium (Colistin *inhalation use only*) 150 mg Q12HRT INH 02/28/19 22:00 03/07/19 21:59 03/01/19 09:37 Dextrose/Sodium Chloride 1,000 ml @ 100 mls/hr Q10H IV 02/24/19 16:00 03/26/19 15:59 03/01/19 06:00 Heparin Sodium (Porcine) (Heparin 5000 units/ml) 5,000 units EVERY 12 HOURS SUBQ 02/24/19 21:00 03/26/19 20:59 03/01/19 08:40 Minocycline HCl (Minocin) 100 mg Q12HR ORAL 02/28/19 21:00 03/07/19 20:59 03/01/19 08:39 Mupirocin (Bactroban Oint) 1 applic THREE TIMES A DAY TOPIC 03/01/19 13:00 03/06/19 12:59 03/01/19 13:16 Pantoprazole (Protonix) 40 mg DAILY IVP 02/25/19 09:00 03/27/19 08:59 03/01/19 08:39 Renae Conteh M.D. Mar 01, 2019 16:16
--- NOTE | 2019-03-01 19:00 | General Progress Note ---
Assessment/Plan Assessment/Plan Assessment and Recs # Anemia of chronic disease due to underlying chronic medical issues, multifactorial --> Anemia workup has been ordered --> No evidence of hemolysis is noted, peripheral smear has been reviewed. --> Hgb goal >7. Transfuse prn. --> Epogen or iron at this time is not indicated --> Medications have been reviewed --> evaluate with Gi team prn --> hgb trend 8.1-->8.2-->9.2 # Leukocytosis/Elevated white blood cell count, unspecified likely related to underlying stress reaction, smoking v more likely infection --> have reviewed peripheral smear and bandemia/neutrophilia noted --> continue antibiotics if they have been started by ID team --> monitor for resolution on cxr for pna --> trend wbc 18k-->12.5k-->11k-->13k # Thrombocytosis again similar to above --> likely related to infection, monitor for resolution # Transaminitis/elevated lffts --> on abx # Chronic respiratory failure s/p trach/vent # Dysphagia is s/p PEG # Anxiety # Schizoaffective disorder # senior care resident # MDR organisms --> on abx as per id The timing of this note does not necessarily reflect the time of the patient was seen. Greatly appreciate consultation! Subjective Constitutional: Denies: no symptoms, chills, diaphoresis, fever, malaise, weakness, other HEENT: Denies: no symptoms, eye pain, blurred vision, tearing, double vision, ear pain, ear discharge, nose pain, nose congestion, throat pain, throat swelling, mouth pain, mouth swelling, other Cardiovascular: Denies: no symptoms, chest pain, edema, irregular heart rate, lightheadedness, palpitations, syncope, other Respiratory: Denies: no symptoms, cough, orthopnea, shortness of breath, SOB with excertion, SOB at rest, sputum, stridor, wheezing, other Gastrointestinal/Abdominal: Denies: no symptoms, abdomen distended, abdominal pain, black stools, tarry stools, blood in stool, constipated, diarrhea, difficulty swallowing, nausea, poor appetite, poor fluid intake, rectal bleeding , vomiting, other Genitourinary: Denies: no symptoms, burning, discharge, frequency, flank pain, hematuria, incontinence, pain, urgency, other Allergies: Coded Allergies: DIPHENHYDRAMINE (Verified Allergy, Unknown, 02/24/19) FLUPHENAZINE (Verified Allergy, Unknown, 02/24/19) Subjective 02/25: no events, on abx, is in the sdu, will be getting prbc transfusion today 02/27: no f/c, hgb remains low, hgb 8.1, remains in the sdu, on vent 02/28: open eyes and more following commands, on vent 03/01: leaking rectal tube but no bleeding, cbc reviewed, on broad spectrum abx mdr Objective Last 24 Hour Vital Signs Date Time Temp Pulse Resp B/P (MAP) Pulse Ox O2 Delivery O2 Flow Rate FiO2 03/01/19 17:22 90 15 40 03/01/19 16:58 82 03/01/19 16:00 Mechanical Ventilator 03/01/19 16:00 40 03/01/19 16:00 98.1 90 16 112/75 (87) 99 03/01/19 15:12 84 15 40 03/01/19 12:53 95 17 40 03/01/19 12:00 93 03/01/19 12:00 Mechanical Ventilator 03/01/19 12:00 98.1 90 18 160/86 (110) 99 03/01/19 12:00 40 03/01/19 11:04 78 16 40 03/01/19 09:49 83 14 100 Mechanical Ventilator 40 03/01/19 09:36 40 03/01/19 09:36 86 16 40 03/01/19 09:36 84 16 Mechanical Ventilator 40 03/01/19 09:36 84 16 99 Mechanical Ventilator 40 03/01/19 08:00 40 03/01/19 08:00 98.2 88 18 105/70 (82) 100 03/01/19 08:00 76 03/01/19 08:00 Mechanical Ventilator 03/01/19 07:03 87 15 40 03/01/19 05:28 85 14 40 40 03/01/19 04:00 97.7 110 17 137/92 (107) 100 03/01/19 04:00 Mechanical Ventilator 03/01/19 04:00 113 03/01/19 04:00 45 03/01/19 02:43 87 15 40 40 03/01/19 01:05 94 16 40 40 03/01/19 00:00 Mechanical Ventilator 03/01/19 00:00 97.7 85 16 91/54 (66) 99 03/01/19 00:00 93 03/01/19 00:00 45 02/28/19 23:01 90 18 40 40 02/28/19 20:57 80 16 40 40 02/28/19 20:00 84 02/28/19 20:00 98.1 81 16 149/93 (111) 98 02/28/19 20:00 Mechanical Ventilator 02/28/19 20:00 45 02/28/19 19:25 83 19 40 40 Intake and Output 02/28/19 03/01/19 19:00 07:00 Intake Total 400 ml 1600 ml Output Total 1200 ml 1300 ml Balance -800 ml 300 ml IV Total 1000 ml Tube Feeding 400 ml 600 ml Output Urine Total 1200 ml 1300 ml # Bowel Movements 1 Laboratory Tests 03/01/19 04:30: White Blood Count 13.8H, Red Blood Count 3.49L, Hemoglobin 9.2L, Hematocrit 29.8L, Mean Corpuscular Volume 85, Mean Corpuscular Hemoglobin 26.4L, Mean Corpuscular Hemoglobin Concent 31.0L, Red Cell Distribution Width 16.6H, Platelet Count 440, Mean Platelet Volume 5.1L, Neutrophils (%) (Auto) 79.2H, Lymphocytes (%) (Auto) 14.9L, Monocytes (%) (Auto) 3.0, Eosinophils (%) (Auto) 2.0, Basophils (%) (Auto) 0.8, Sodium Level 142, Potassium Level 4.2, Chloride Level 104, Carbon Dioxide Level 34H, Anion Gap 4L, Blood Urea Nitrogen 11, Creatinine 0.3L, Estimat Glomerular Filtration Rate > 60, Glucose Level 136H, Calcium Level 11.0H, Phosphorus Level 3.5, Magnesium Level 2.1, Total Bilirubin 0.1L, Aspartate Amino Transf (AST/SGOT) 24, Alanine Aminotransferase (ALT/SGPT) 71, Alkaline Phosphatase 121H, Total Protein 7.1, Albumin 2.0L, Globulin 5.1, Albumin/Globulin Ratio 0.4L Height (Feet): 5 Height (Inches): 6.00 Weight (Pounds): 175 Objective Sp02 EP Interpretation: reviewed, normal General Appearance: alert, Chronically Ill Head: normocephalic, atraumatic Eyes: bilateral eye normal inspection, bilateral eye PERRL, bilateral eye EOMI ENT: moist mucus membranes Neck: supple, ++ tracheotomy Respiratory: rales, rhonchi, wheezing, expiration, other - Thick secretions Cardiovascular: tachycardia, edema Gastrointestinal: soft, decreased bowel sounds ++ peg Musculoskeletal: swelling Neurologic: responsive, 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
--- NOTE | 2019-03-01 19:29 | NUR ---
HAND-OFF: Report given to DB Dunlap.
--- NOTE | 2019-03-01 19:30 | NUR ---
NURSE NOTES: Report received from DB Ricardo. Observed pt awake, lying on the bed, trach to vent, non-verbal. No signs of pain noted. SR with front desk monitor. Vent setting, portex 7, AC 14, TV 450, FiO2 40%, PEEP 5. GT intact and running two carb 50ml/hr. Rectal tube intact and patent. F/C intact and draining well. IV site on R W 18G, SL, intact and patent. L H 22 G running D5 1/2NS at 100cc/hr. Bed in the lowest position. Side rails up x3. Will continue to monitor.
[2019-03-01 20:00] VITALS: BP 109/74
[2019-03-02] VITALS: BP 107/70
[2019-03-02] MEDS: D5 1/2NS 1,000 ML IV SCH ×3 (02:12→22:02)
[2019-03-02 04:00] VITALS: BP 114/66
--- NOTE | 2019-03-02 07:33 | NUR ---
HAND-OFF: Report given to DB Crain. No acute distress noted at this time.
--- NOTE | 2019-03-02 07:40 | NUR ---
NURSE NOTES: Received patient from on portex 7 on vent. Patient tolerating current vent settings and on TwoCard at 50cc/hr tube feeding. Patient on rectal tube and alberto for retention. Wound on left ear noted. Left hand 18g IV site as well as right wrist 22g IV site intact. Rt IV running D5 NS at 100CC/hr. Bed at its lowest position and call light in reach. Will continue to monitor.
[2019-03-02 08:00] VITALS: BP 121/79
[2019-03-02] MEDS: Minocycline HCl 50mg cap ORAL SCH ×2 (08:57→20:24)
[2019-03-02] MEDS: Pantoprazole Inj IVP SCH (08:58)
[2019-03-02] MEDS: Heparin 5000 units/ml inj SUBQ SCH ×2 (09:01→20:24)
[2019-03-02] MEDS: Colistin for inhalation INH SCH ×2 (09:08→21:28)
--- NOTE | 2019-03-02 09:33 | Infectious Diseases Prog Note ---
Assessment/Plan Assessment/Plan Assessment: Sepsis 2ryt o Probable PNA and UTI -CXR: Diffuse opacity projected over the left hemithorax. Suspect pleural disease either pleural effusion or pleural thickening. Difficult to exclude underlying parenchymal disease. -sp cx MDR ABC (S minocycline, colistin, polymixin B) -u/a wbc 10-15, nit neg, leuk +3; ucx p -influenza sc neg Afebrile Leukocytosis, improving Elevated LFTs chronic respiratory failure s/p trach/vent PEG anxiety schizoaffective disorder [facility] resident Plan: -Cont INH Colistin and Minocycline #3/-10 for MDR ABC sp -02/28 SP IV Vancomycin and Zosyn #5 -02/24 SP Cefepime and LEvaquin x1 -f.u cx -Monitor CBC/CMP, temperatures -f/u legionella ag urince -PEG/Trach care Will continue to follow along with you. Subjective Allergies: Coded Allergies: DIPHENHYDRAMINE (Verified Allergy, Unknown, 02/24/19) FLUPHENAZINE (Verified Allergy, Unknown, 02/24/19) Subjective Afebrile WBCs stable at about 13 for the last 4 days Objective Vital Signs Last 24 Hour Vital Signs Date Time Temp Pulse Resp B/P (MAP) Pulse Ox O2 Delivery O2 Flow Rate FiO2 03/02/19 09:07 81 14 100 Mechanical Ventilator 40 03/02/19 09:07 40 03/02/19 09:06 79 16 40 03/02/19 08:00 98.1 80 16 121/79 (93) 99 03/02/19 08:00 Mechanical Ventilator 03/02/19 07:19 76 17 40 03/02/19 05:01 80 17 40 03/02/19 04:00 Mechanical Ventilator 03/02/19 04:00 75 03/02/19 04:00 40 03/02/19 04:00 97.5 78 17 114/66 (82) 99 03/02/19 03:05 78 14 40 03/02/19 01:02 85 15 40 03/02/19 00:00 40 03/02/19 00:00 76 03/02/19 00:00 Mechanical Ventilator 03/02/19 00:00 98.3 78 16 107/70 (82) 100 03/01/19 22:48 76 14 40 03/01/19 22:48 76 14 100 Mechanical Ventilator 40 03/01/19 22:48 40 03/01/19 20:35 89 15 40 03/01/19 20:00 Mechanical Ventilator 03/01/19 20:00 98.1 84 16 109/74 (86) 98 03/01/19 20:00 40 03/01/19 20:00 78 03/01/19 19:05 85 15 40 03/01/19 17:22 90 15 40 03/01/19 16:58 82 03/01/19 16:00 Mechanical Ventilator 03/01/19 16:00 40 03/01/19 16:00 98.1 90 16 112/75 (87) 99 03/01/19 15:12 84 15 40 03/01/19 12:53 95 17 40 03/01/19 12:00 93 03/01/19 12:00 Mechanical Ventilator 03/01/19 12:00 98.1 90 18 160/86 (110) 99 03/01/19 12:00 40 03/01/19 11:04 78 16 40 03/01/19 09:49 83 14 100 Mechanical Ventilator 40 03/01/19 09:36 40 03/01/19 09:36 86 16 40 03/01/19 09:36 84 16 Mechanical Ventilator 40 03/01/19 09:36 84 16 99 Mechanical Ventilator 40 Height (Feet): 5 Height (Inches): 6.00 Weight (Pounds): 175 Objective General. NAD, On vent 40% HEENT: NCAT, MMM, PERRL, Trached Respiratory/Chest: Course B/L Cardiovascular/Chest: RR, S1, S2, Abdomen: normal bowel sounds, Not distended Microbiology Date/Time Source Procedure Growth Status 03/01/19 04:30 Stool Clostridium difficile Toxin Assay - Final Complete 02/27/19 20:00 Urine,Clean Catch Urine Culture - Preliminary YEAST Resulted Current Medications Medications (Trade) Dose Ordered Sig/Lavon Route PRN Reason Start Time Stop Time Status Last Admin Dose Admin Colistimethate Sodium (Colistin *inhalation use only*) 150 mg Q12HRT INH 02/28/19 22:00 03/07/19 21:59 03/02/19 09:08 Dextrose/Sodium Chloride 1,000 ml @ 100 mls/hr Q10H IV 02/24/19 16:00 03/26/19 15:59 03/02/19 02:12 Heparin Sodium (Porcine) (Heparin 5000 units/ml) 5,000 units EVERY 12 HOURS SUBQ 02/24/19 21:00 03/26/19 20:59 03/02/19 09:01 Minocycline HCl (Minocin) 100 mg Q12HR ORAL 02/28/19 21:00 03/07/19 20:59 03/02/19 08:57 Mupirocin (Bactroban Oint) 1 applic THREE TIMES A DAY TOPIC 03/01/19 13:00 03/06/19 12:59 03/01/19 17:09 Pantoprazole (Protonix) 40 mg DAILY IVP 02/25/19 09:00 03/27/19 08:59 03/02/19 08:58 Chadwick Keith MD Mar 02, 2019 09:33
[2019-03-02 12:00] VITALS: BP 115/73
--- NOTE | 2019-03-02 13:11 | Pulmonolgy Critical Care Note ---
Critical Care - Asmt/Plan Problems: (1) Acute and chronic respiratory failure (2) MDRO (multiple drug resistant organisms) resistance (3) Pneumonia involving left lung (4) Sepsis (5) Severe anemia (6) UTI (urinary tract infection) (7) Feeding by G-tube (8) Functional quadriplegia Respiratory: monitor respiratory rate, adjust FIO2, CXR Cardiac: continue to monitor HR/BP Renal: F/U I&O, keep IV fluid, check electrolytes Infectious Disease: check cultures, continue antibiotics Gastrointestinal: continue feedings/current rate Endocrine: monitor blood sugar, check HgA1C Hematologic: transfuse if hgb<8.5 Neurologic: PRN Ativan, keep patient comfortable Affect: PRN ativan Prophylaxis: Heparin Disposition: keep in ICU 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, 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 Discussed with: nurses, consultants, 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 export - Objective Last 24 Hour Vital Signs Date Time Temp Pulse Resp B/P (MAP) Pulse Ox O2 Delivery O2 Flow Rate FiO2 03/02/19 12:40 84 19 40 03/02/19 10:40 81 15 40 03/02/19 09:07 81 14 100 Mechanical Ventilator 40 03/02/19 09:07 40 03/02/19 09:06 79 16 40 03/02/19 08:41 81 14 100 Mechanical Ventilator 40 03/02/19 08:00 98.1 80 16 121/79 (93) 99 03/02/19 08:00 40 03/02/19 08:00 Mechanical Ventilator 03/02/19 07:48 79 03/02/19 07:19 76 17 40 03/02/19 05:01 80 17 40 03/02/19 04:00 Mechanical Ventilator 03/02/19 04:00 75 03/02/19 04:00 40 03/02/19 04:00 97.5 78 17 114/66 (82) 99 03/02/19 03:05 78 14 40 03/02/19 01:02 85 15 40 03/02/19 00:00 40 03/02/19 00:00 76 03/02/19 00:00 Mechanical Ventilator 03/02/19 00:00 98.3 78 16 107/70 (82) 100 03/01/19 22:48 76 14 40 03/01/19 22:48 76 14 100 Mechanical Ventilator 40 03/01/19 22:48 40 03/01/19 20:35 89 15 40 03/01/19 20:00 Mechanical Ventilator 03/01/19 20:00 98.1 84 16 109/74 (86) 98 03/01/19 20:00 40 03/01/19 20:00 78 03/01/19 19:05 85 15 40 03/01/19 17:22 90 15 40 03/01/19 16:58 82 03/01/19 16:00 Mechanical Ventilator 03/01/19 16:00 40 03/01/19 16:00 98.1 90 16 112/75 (87) 99 03/01/19 15:12 84 15 40 Status: awake Condition: critical HEENT: atraumatic Neck: full ROM Lungs: clear Heart: HR/BP stable, HR/BP unstable Abdomen: soft, non-tender Extremities: no C/C/E, edema Decubiti: stage Micro: Microbiology Date/Time Source Procedure Growth Status 03/01/19 04:30 Stool Clostridium difficile Toxin Assay - Final Complete 02/27/19 20:00 Urine,Clean Catch Urine Culture - Preliminary YEAST Resulted Accucheck: 171 Critical Care - Subjective ROS Limited/Unobtainable: Yes Condition: critical FI02: 40 Vent Support Breath Rate: 14 Vent Support Mode: AC Vent Tidal Volume: 450 Sputum Amount: Moderate PEEP: 5.0 PIP: 22 Tube Feeding Amount: 50 I&O: Intake and Output 03/01/19 03/02/19 19:00 07:00 Intake Total 910 ml 1770 ml Output Total 100 ml Balance 810 ml 1770 ml Intake Free Water 60 ml 120 ml IV Total 300 ml 1100 ml Tube Feeding 550 ml 550 ml Stool Total 100 ml CXR: no change Rula Corrigan MD Mar 02, 2019 13:11
--- NOTE | 2019-03-02 14:23 | NUR ---
*-* INSURANCE *-* ALL CLINICALS AND REVIEWS HAVE BEEN FAXED TO: [employer] P- [phone] F- [phone]
--- NOTE | 2019-03-02 14:30 | NUR ---
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 SEPSIS VS: BP 115/73, P 81, T 98.4, RR 19, SpO2 100 on VENT AC 14, TV 450, PEEP 5.0, FiO2 40 IS:D5/NS x1L IV HEPARIN SUBQ PROTONIX 40mg IVP COLISTIN 150mg INH MUPIROCIN TOPICAL SDU STATUS
--- NOTE | 2019-03-02 15:37 | Surgery Progress Note ---
Surgery Progress Note Subjective Additional Comments leukocytosis, h/h stable, exam unchanged. labs noted. Objective Last 24 Hour Vital Signs Date Time Temp Pulse Resp B/P (MAP) Pulse Ox O2 Delivery O2 Flow Rate FiO2 03/02/19 15:07 86 20 40 03/02/19 12:40 84 19 40 03/02/19 12:00 40 03/02/19 12:00 82 03/02/19 12:00 Mechanical Ventilator 03/02/19 12:00 98.4 79 17 115/73 (87) 100 03/02/19 10:40 81 15 40 03/02/19 09:07 81 14 100 Mechanical Ventilator 40 03/02/19 09:07 40 03/02/19 09:06 79 16 40 03/02/19 08:41 81 14 100 Mechanical Ventilator 40 03/02/19 08:00 98.1 80 16 121/79 (93) 99 03/02/19 08:00 40 03/02/19 08:00 Mechanical Ventilator 03/02/19 07:48 79 03/02/19 07:19 76 17 40 03/02/19 05:01 80 17 40 03/02/19 04:00 Mechanical Ventilator 03/02/19 04:00 75 03/02/19 04:00 40 03/02/19 04:00 97.5 78 17 114/66 (82) 99 03/02/19 03:05 78 14 40 03/02/19 01:02 85 15 40 03/02/19 00:00 40 03/02/19 00:00 76 03/02/19 00:00 Mechanical Ventilator 03/02/19 00:00 98.3 78 16 107/70 (82) 100 03/01/19 22:48 76 14 40 03/01/19 22:48 76 14 100 Mechanical Ventilator 40 03/01/19 22:48 40 03/01/19 20:35 89 15 40 03/01/19 20:00 Mechanical Ventilator 03/01/19 20:00 98.1 84 16 109/74 (86) 98 03/01/19 20:00 40 03/01/19 20:00 78 03/01/19 19:05 85 15 40 03/01/19 17:22 90 15 40 03/01/19 16:58 82 03/01/19 16:00 Mechanical Ventilator 03/01/19 16:00 40 03/01/19 16:00 98.1 90 16 112/75 (87) 99 I&O Intake and Output 03/01/19 03/02/19 19:00 07:00 Intake Total 910 ml 1770 ml Output Total 100 ml Balance 810 ml 1770 ml Intake Free Water 60 ml 120 ml IV Total 300 ml 1100 ml Tube Feeding 550 ml 550 ml Stool Total 100 ml Dressing: saturated Wound: clean Drains: other Cardiovascular: RSR Respiratory: decreased breath sounds Abdomen: soft, present bowel sounds, non-distended Extremities: no cyanosis, other Plan Problems: (1) Decubitus skin ulcer Assessment & Plan: Pt presented on admission with unstageable wound L earlobe.Wound has 95% soft necrosis ,5% viable. (L)2.5cm x (W)0.7cm. Periwound earlobe extending into ear canal has darker than is normal skin tone. Full thickness sacral pressure injury with 10% slough otherwise wound is viable with measureable depth at coccyx. Pt flinches each time area is minimally palpated. ( L)2.5cm x (W)7.5cm x (D)0.4cm.Edges of wound macerated. Erythema periwound. Bilat heels firm and easily blanchable. Tx.PLan: Cleanse Sacral wound with Saline. Apply Therahoney .Apply Triad periwound.Cover with Optifoam drsg .Change daily and prn. Cleanse L ear with Saline. Apply Bactroban . Cover with Optifoam drsg .Change Daily and prn. Apply Cavilon to both heels .Cover each heel with Optifoam drsg. Change every 7 days and prn. Please maintain Foam Mold around L ear to reduce pressure from ear. Reposition at least every 2 hours or as tolerated. Off-load heels with Pillow. APM/SYLVIA mattress. (2) Functional quadriplegia (3) UTI (urinary tract infection) Levon Nunes Mar 02, 2019 15:37
--- NOTE | 2019-03-02 15:50 | NUR ---
HAND-OFF: Report given to Parrish ACE.Pt stable no resp distress presented.
[2019-03-02 16:00] VITALS: BP 129/74
--- NOTE | 2019-03-02 17:30 | Progress Note ---
DATE: 03/01/2019 SUBJECTIVE: The patient's condition is completely changed. She was depressed and tearful yesterday. Today she smiles and nodding the head indicating she has no pain. PHYSICAL EXAMINATION: VITAL SIGNS: Blood pressure is 109/74, pulse is 84, respirations 16, and temperature 98.1. HEENT: Eyes were normal. ENT, mucous membranes were moist and intact. NECK: Supple with no JVD without lymph nodes. Tracheostomy site is clean. LUNGS: Clear without rhonchi, rales, or wheezing. Secretions are small, thin, and robison. HEART: Normal sounds with regular beats. There is no S3, S4, or pericardial rub. ABDOMEN: Soft and nontender with normal bowel sounds. Gastrostomy site is clean. EXTREMITIES: Warm without cyanosis, clubbing, or edema. LABORATORY AND DIAGNOSTIC DATA: Hemoglobin is 9.2, hematocrit 29.8, MCV of 55, WBC of 13.8, and platelets 440,000. BUN and creatinine are 11 and 0.3 respectively. Sodium is 142, potassium 4.2, chloride 104, CO2 is 34. Calcium is 11, phosphorus is 3.5, and magnesium is 2.9. SGOT and SGPT are normal. Alkaline phosphatase is minimally elevated. Albumin is 2 and total protein is 7.9. Yesterday albumin was 1.4. She has subluxation of the left . laxity and has findings of right shoulder as well . IMPRESSION: The patient clinically is more than moderately improved. She has subluxation . Repeat laboratory tests will be done in the a.m. Bassem Bruce M.D. DR: RICHAR JOB#: [id number] CC:
--- NOTE | 2019-03-02 19:21 | NUR ---
HAND-OFF: Report given to DB Garcia.
--- NOTE | 2019-03-02 19:22 | NUR ---
RESPIRATORY NOTE: Received pt on AC 14, 450VT, 40%, PEEP +5. Pt trach-dependent w/ a cuffed, Portex 7 tube. Pt wake/disoriented, responds to stimuli. B/S larisa. rhonchi, sxn small to moderate amounts of thick/thin, pale-yellow secretions. Vent plugged into red outlet, ambubag & spare trach kit at bedside. Pt resting comfortably, in no apparent distress at this time. Will continue plan of care.
--- NOTE | 2019-03-02 19:22 | NUR ---
NURSE NOTES: Report received from DB Senior. Patient seen in bed in semi rivera position with vent on previous setting. sp02 is 98%. Patient able to open eyes, but non verbal at this time. No S/Sx of pain is noted via FLACC scale. GT feeding Twocal 2.0 is running at 50cc/hr, GT site is intact. Noted with alberto and rectal tube and its intact. IV site is to left hand 18g and right wrist 22g. Currently on IVF of D5 1/2 NS running at 100cc/hr. Bed is in lowest position. Call light is within easy reach while in bed. Will continue to monitor.
[2019-03-02 20:00] VITALS: BP 117/72
--- NOTE | 2019-03-02 20:45 | General Progress Note ---
Assessment/Plan Assessment/Plan Assessment and Recs # Anemia of chronic disease due to underlying chronic medical issues, multifactorial --> Anemia workup has been ordered/reviewed and c/w acd --> No evidence of hemolysis is noted, peripheral smear has been reviewed. --> Hgb goal >7. Transfuse prn. --> Epogen or iron at this time is not indicated --> Medications have been reviewed --> evaluate with Gi team prn --> hgb trend 8.1-->8.2-->9.2 # Leukocytosis/Elevated white blood cell count, unspecified likely related to underlying stress reaction, smoking v more likely infection --> have reviewed peripheral smear and bandemia/neutrophilia noted --> continue antibiotics if they have been started by ID team --> monitor for resolution on cxr for pna --> trend wbc 18k-->12.5k-->11k-->13k # Thrombocytosis again similar to above --> likely related to infection, monitor for resolution # Transaminitis/elevated lffts --> on abx # Chronic respiratory failure s/p trach/vent # Dysphagia is s/p PEG # Anxiety # Schizoaffective disorder # prison resident # MDR organisms --> on abx as per id The timing of this note does not necessarily reflect the time of the patient was seen. Greatly appreciate consultation! Subjective Constitutional: Denies: no symptoms, chills, diaphoresis, fever, malaise, weakness, other HEENT: Denies: no symptoms, eye pain, blurred vision, tearing, double vision, ear pain, ear discharge, nose pain, nose congestion, throat pain, throat swelling, mouth pain, mouth swelling, other Cardiovascular: Denies: no symptoms, chest pain, edema, irregular heart rate, lightheadedness, palpitations, syncope, other Respiratory: Denies: no symptoms, cough, orthopnea, shortness of breath, SOB with excertion, SOB at rest, sputum, stridor, wheezing, other Endocrine: Denies: no symptoms, excessive sweating, flushing, intolerance to cold, intolerance to heat, increased hunger, increased thirst, increased urine, unexplained weight gain, unexplained weight loss, other Allergies: Coded Allergies: DIPHENHYDRAMINE (Verified Allergy, Unknown, 02/24/19) FLUPHENAZINE (Verified Allergy, Unknown, 02/24/19) Subjective 02/25: no events, on abx, is in the sdu, will be getting prbc transfusion today 02/27: no f/c, hgb remains low, hgb 8.1, remains in the sdu, on vent 02/28: open eyes and more following commands, on vent 03/01: leaking rectal tube but no bleeding, cbc reviewed, on broad spectrum abx mdr 03/02: on abx, vent=+, nonverbal, gtube functioning in place Objective Last 24 Hour Vital Signs Date Time Temp Pulse Resp B/P (MAP) Pulse Ox O2 Delivery O2 Flow Rate FiO2 03/02/19 19:20 90 20 40 03/02/19 17:14 86 22 40 03/02/19 16:00 40 03/02/19 16:00 Mechanical Ventilator 03/02/19 16:00 98.4 80 18 129/74 (92) 100 03/02/19 16:00 80 03/02/19 15:07 86 20 40 03/02/19 12:40 84 19 40 03/02/19 12:00 40 03/02/19 12:00 82 03/02/19 12:00 Mechanical Ventilator 03/02/19 12:00 98.4 79 17 115/73 (87) 100 03/02/19 10:40 81 15 40 03/02/19 09:07 81 14 100 Mechanical Ventilator 40 03/02/19 09:07 40 03/02/19 09:06 79 16 40 03/02/19 08:41 81 14 100 Mechanical Ventilator 40 03/02/19 08:00 98.1 80 16 121/79 (93) 99 03/02/19 08:00 40 03/02/19 08:00 Mechanical Ventilator 03/02/19 07:48 79 03/02/19 07:19 76 17 40 03/02/19 05:01 80 17 40 03/02/19 04:00 Mechanical Ventilator 03/02/19 04:00 75 03/02/19 04:00 40 03/02/19 04:00 97.5 78 17 114/66 (82) 99 03/02/19 03:05 78 14 40 03/02/19 01:02 85 15 40 03/02/19 00:00 40 03/02/19 00:00 76 03/02/19 00:00 Mechanical Ventilator 03/02/19 00:00 98.3 78 16 107/70 (82) 100 03/01/19 22:48 76 14 40 03/01/19 22:48 76 14 100 Mechanical Ventilator 40 03/01/19 22:48 40 Intake and Output 03/01/19 03/02/19 19:00 07:00 Intake Total 910 ml 1770 ml Output Total 100 ml Balance 810 ml 1770 ml Intake Free Water 60 ml 120 ml IV Total 300 ml 1100 ml Tube Feeding 550 ml 550 ml Stool Total 100 ml Height (Feet): 5 Height (Inches): 6.00 Weight (Pounds): 175 Objective Sp02 EP Interpretation: reviewed, normal General Appearance: alert, Chronically Ill Head: normocephalic, atraumatic Eyes: bilateral eye normal inspection, bilateral eye PERRL, bilateral eye EOMI ENT: moist mucus membranes Neck: supple, ++ tracheotomy Respiratory: rales, rhonchi, wheezing, expiration, other - Thick secretions Cardiovascular: tachycardia, edema Gastrointestinal: soft, decreased bowel sounds ++ peg Musculoskeletal: swelling Neurologic: responsive, top dyeing machine tender III-XII nml as tested, motor weakness - R hemiparesis, flaccid L upper arm, able to move L foot, sensory deficit Tod Bradley MD Mar 02, 2019 20:45
[2019-03-03] VITALS: BP 124/83
[2019-03-03 04:00] VITALS: BP 139/80
[2019-03-03 05:44] LABS: BASOPHILS % (AUTO) 0.4 % (0.0-2.0); EOSINOPHILS % (AUTO) 2.5 % (0.0-3.0); HEMATOCRIT 31.6 % (37.0-47.0); HEMOGLOBIN 9.6 G/DL (12.0-16.0); LYMPHOCYTES % (AUTO) 15.9 % (20.0-45.0); MEAN CORPUSCULAR VOLUME 85 FL (80-99); MONOCYTES % (AUTO) 1.8 % (1.0-10.0); NEUTROPHILS % (AUTO) 79.4 % (45.0-75.0); PLATELET COUNT 440 K/UL (150-450); WHITE BLOOD COUNT 11.7 K/UL (4.8-10.8)
[2019-03-03 06:07] LABS: ALANINE AMINOTRANSFERASE 59 U/L (12-78); ALBUMIN 2.2 G/DL (3.4-5.0); ALBUMIN/GLOBULIN RATIO 0.4 (1.0-2.7); ALKALINE PHOSPHATASE 111 U/L (46-116); ANION GAP 5 mmol/L (5-15); ASPARTATE AMINO TRANSFERASE 22 U/L (15-37); BILIRUBIN,TOTAL 0.1 MG/DL (0.2-1.0); BLOOD UREA NITROGEN 13 mg/dL (7-18); CALCIUM 11.2 MG/DL (8.5-10.1); CARBON DIOXIDE 34 MMOL/L (21-32); CHLORIDE 101 MMOL/L (98-107); CREATININE 0.3 MG/DL (0.55-1.30); POTASSIUM 4.4 MMOL/L (3.5-5.1); SODIUM 140 MMOL/L (136-145)
--- NOTE | 2019-03-03 07:09 | NUR ---
RESPIRATORY NOTE: Patient received mechanically ventilated on PB 840 with current ordered vents settings. Patient has trach 7.0 Portex cuffed that is secured with a trach tie and guard. There are bilateral coarse breath sounds auscultated and small amount of white/clear, thick/thin secretions suctioned without incident. Vent alarms are functional and audible. There is an ambu bag available at the bedside and the vent is connected to a red outlet. Will continue to monitor.
--- NOTE | 2019-03-03 07:30 | NUR ---
HAND-OFF: Report given to Vianey Torres RN.
--- NOTE | 2019-03-03 07:44 | NUR ---
NURSE NOTES: Report received from DB Romero. Observed patient in bed. Open eyes but unable to follow command. Trach to vent with previous setting with no distress noted. No s/s of pain at this time. IVF running at prescribed rate. GT site intact with ongoing feeding. HOB elevated. No residual noted. F/C and rectal rube intact and draining well. Bed in lowest position. Call light within reach. Will continue to monitor.
[2019-03-03 08:00] VITALS: BP 145/88
[2019-03-03] MEDS: D5 1/2NS 1,000 ML IV SCH ×3 (08:15→19:07)
[2019-03-03] MEDS: Minocycline HCl 50mg cap ORAL SCH ×2 (08:17→20:01)
[2019-03-03] MEDS: Pantoprazole Inj IVP SCH (08:17)
[2019-03-03] MEDS: Heparin 5000 units/ml inj SUBQ SCH ×2 (08:20→20:02)
--- NOTE | 2019-03-03 08:35 | NUR ---
CHEST X-RAY COMPLETED AT 0732 HRS BY Lelo PIERSON.
--- NOTE | 2019-03-03 09:16 | Diagnostic Imaging Report ---
Indication: Shortness of breath Technique: One view of the chest Comparison: 02/28/2019 Findings: There is evidence of increasing opacification of the left lung and increasing volume loss. There is probably increasing pleural fluid as well. The right lung and pleural space remain clear. Tracheostomy remains Impression: Increasing left lung volume loss, consolidation, and left-sided pleural fluid, over 3 days Other findings as noted
--- NOTE | 2019-03-03 10:21 | Infectious Diseases Prog Note ---
Assessment/Plan Assessment/Plan Assessment: Sepsis 2ryt o Probable PNA and UTI -CXR: Diffuse opacity projected over the left hemithorax. Suspect pleural disease either pleural effusion or pleural thickening. Difficult to exclude underlying parenchymal disease. -sp cx MDR ABC (S minocycline, colistin, polymixin B) -u/a wbc 10-15, nit neg, leuk +3; ucx p -influenza sc neg Afebrile Leukocytosis, improving Elevated LFTs chronic respiratory failure s/p trach/vent PEG anxiety schizoaffective disorder [facility] resident Plan: -Cont INH Colistin and Minocycline #4/-10 for MDR ABC sp -02/28 SP IV Vancomycin and Zosyn #5 -02/24 SP Cefepime and LEvaquin x1 -f.u cx -Monitor CBC/CMP, temperatures -f/u legionella ag urince -PEG/Trach care Will continue to follow along with you. Subjective Allergies: Coded Allergies: DIPHENHYDRAMINE (Verified Allergy, Unknown, 02/24/19) FLUPHENAZINE (Verified Allergy, Unknown, 02/24/19) Subjective Afebrile WBCs decreased to 11 Objective Vital Signs Last 24 Hour Vital Signs Date Time Temp Pulse Resp B/P (MAP) Pulse Ox O2 Delivery O2 Flow Rate FiO2 03/03/19 08:43 74 18 40 03/03/19 08:00 40 03/03/19 08:00 Mechanical Ventilator 03/03/19 08:00 98.3 88 14 145/88 (107) 100 03/03/19 08:00 87 03/03/19 07:06 87 14 40 03/03/19 05:30 82 14 40 03/03/19 04:00 98.1 90 15 139/80 (99) 95 03/03/19 04:00 40 03/03/19 04:00 Mechanical Ventilator 03/03/19 03:27 109 03/03/19 03:20 109 14 40 03/03/19 01:30 82 17 40 03/03/19 00:00 98.0 81 15 124/83 (97) 100 03/03/19 00:00 Mechanical Ventilator 03/02/19 23:25 91 03/02/19 22:50 80 14 40 03/02/19 21:45 83 15 100 Mechanical Ventilator 40 03/02/19 21:28 82 15 100 Mechanical Ventilator 40 03/02/19 21:28 40 03/02/19 21:27 82 15 40 03/02/19 20:00 40 03/02/19 20:00 Mechanical Ventilator 03/02/19 20:00 98.6 86 16 117/72 (87) 99 03/02/19 19:20 90 20 40 03/02/19 19:13 92 03/02/19 17:14 86 22 40 03/02/19 16:00 40 03/02/19 16:00 Mechanical Ventilator 03/02/19 16:00 98.4 80 18 129/74 (92) 100 03/02/19 16:00 80 03/02/19 15:07 86 20 40 03/02/19 12:40 84 19 40 03/02/19 12:00 40 03/02/19 12:00 82 03/02/19 12:00 Mechanical Ventilator 03/02/19 12:00 98.4 79 17 115/73 (87) 100 03/02/19 10:40 81 15 40 Height (Feet): 5 Height (Inches): 6.00 Weight (Pounds): 175 Objective General. NAD, On vent 40% satting well HEENT: NCAT, MMM, PERRL, Trached Respiratory/Chest: Course B/L Cardiovascular/Chest: RR, S1, S2, Abdomen: normal bowel sounds, Not distended Microbiology Date/Time Source Procedure Growth Status 03/01/19 04:30 Stool Clostridium difficile Toxin Assay - Final Complete Laboratory Tests Test 03/03/19 03:50 White Blood Count 11.7 K/UL (4.8-10.8) H Red Blood Count 3.70 M/UL (4.20-5.40) L Hemoglobin 9.6 G/DL (12.0-16.0) L Hematocrit 31.6 % (37.0-47.0) L Mean Corpuscular Volume 85 FL (80-99) Mean Corpuscular Hemoglobin 26.0 PG (27.0-31.0) L Mean Corpuscular Hemoglobin Concent 30.4 G/DL (32.0-36.0) L Red Cell Distribution Width 17.0 % (11.6-14.8) H Platelet Count 440 K/UL (150-450) Mean Platelet Volume 5.3 FL (6.5-10.1) L Neutrophils (%) (Auto) 79.4 % (45.0-75.0) H Lymphocytes (%) (Auto) 15.9 % (20.0-45.0) L Monocytes (%) (Auto) 1.8 % (1.0-10.0) Eosinophils (%) (Auto) 2.5 % (0.0-3.0) Basophils (%) (Auto) 0.4 % (0.0-2.0) Sodium Level 140 MMOL/L (136-145) Potassium Level 4.4 MMOL/L (3.5-5.1) Chloride Level 101 MMOL/L (98-107) Carbon Dioxide Level 34 MMOL/L (21-32) H Anion Gap 5 mmol/L (5-15) Blood Urea Nitrogen 13 mg/dL (7-18) Creatinine 0.3 MG/DL (0.55-1.30) L Estimat Glomerular Filtration Rate > 60 mL/min (>60) Glucose Level 139 MG/DL (74-106) H Calcium Level 11.2 MG/DL (8.5-10.1) H Total Bilirubin 0.1 MG/DL (0.2-1.0) L Aspartate Amino Transf (AST/SGOT) 22 U/L (15-37) Alanine Aminotransferase (ALT/SGPT) 59 U/L (12-78) Alkaline Phosphatase 111 U/L (46-116) Total Protein 7.4 G/DL (6.4-8.2) Albumin 2.2 G/DL (3.4-5.0) L Globulin 5.2 g/dL Albumin/Globulin Ratio 0.4 (1.0-2.7) L Current Medications Medications (Trade) Dose Ordered Sig/Lavon Route PRN Reason Start Time Stop Time Status Last Admin Dose Admin Colistimethate Sodium (Colistin *inhalation use only*) 150 mg Q12HRT INH 02/28/19 22:00 03/07/19 21:59 03/02/19 21:28 Dextrose/Sodium Chloride 1,000 ml @ 100 mls/hr Q10H IV 02/24/19 16:00 03/26/19 15:59 03/03/19 08:15 Heparin Sodium (Porcine) (Heparin 5000 units/ml) 5,000 units EVERY 12 HOURS SUBQ 02/24/19 21:00 03/26/19 20:59 03/03/19 08:20 Minocycline HCl (Minocin) 100 mg Q12HR ORAL 02/28/19 21:00 03/07/19 20:59 03/03/19 08:17 Mupirocin (Bactroban Oint) 1 applic THREE TIMES A DAY TOPIC 03/01/19 13:00 03/06/19 12:59 03/03/19 08:17 Pantoprazole (Protonix) 40 mg DAILY IVP 02/25/19 09:00 03/27/19 08:59 03/03/19 08:17 Chadwick Keith MD Mar 03, 2019 10:21
--- NOTE | 2019-03-03 10:34 | NUR ---
RD ASSESSMENT & RECOMMENDATIONS SEE CARE ACTIVITY FOR COMPLETE ASSESSMENT DAILY ESTIMATED NEEDS: Needs based on Critical care, wounds 63kg 22-30 kcals/kg 8125-6897 total kcals 1.25-2 g protein/kg 79-126 g total protein 25-30 mL/kg 7385-5894 total fluid mLs NUTRITION DIAGNOSIS: 1) Swallowing difficulty r/t respiratory status as evidenced by pt is vent dep via trach, GT dep, on tube feeds. 2) Increased kcal and protein needs r/t wound healing as evidenced by pt w/ full thickness sacral wound, L ear wound unstageable. CURRENT TF:2cal @50ml ENTERAL NUTRITION RECOMMENDATIONS: TF CHANGE TO -> VITAL AF 1.2 @50ml/hr x24 hrs to provide 1200ml, 1440 kcal, 90g pro, 973ml free H2O - REC TF CHANGE TO VITAL AF 1.2, start @30ml/hr, advance as tolerated 10ml q4-6 hrs to goal - Flush per MD. HOB over 30 degrees ADDITIONAL RECOMMENDATIONS: 1) PER SNF: pt is 139#, 65inches tall 2) Add ALEENA BID via GT daily Add Vit C 250mmg BID 3) Rec SSI, bedside blood checks 4) Check lytes daily, replete as needed 5) Weekly CALIBRATED bed scale wts
--- NOTE | 2019-03-03 10:40 | Pulmonolgy Critical Care Note ---
Critical Care - Asmt/Plan Problems: (1) Acute and chronic respiratory failure (2) MDRO (multiple drug resistant organisms) resistance (3) Pneumonia involving left lung (4) Sepsis (5) Severe anemia (6) UTI (urinary tract infection) (7) Feeding by G-tube (8) Functional quadriplegia Respiratory: monitor respiratory rate, adjust FIO2, CXR Cardiac: continue to monitor HR/BP Renal: F/U I&O, keep IV fluid Infectious Disease: check cultures Gastrointestinal: continue feedings/current rate Endocrine: monitor blood sugar, check HgA1C, continue sliding scale insulin Hematologic: transfuse if hgb<8.5 Neurologic: PRN Ativan, PRN Morphine, keep patient comfortable Prophylaxis: Protonix Notes Reviewed: cardio, renal Discussed with: nurses, consultants, case consultanttire shop manager - Objective Last 24 Hour Vital Signs Date Time Temp Pulse Resp B/P (MAP) Pulse Ox O2 Delivery O2 Flow Rate FiO2 03/03/19 08:43 74 18 40 03/03/19 08:00 40 03/03/19 08:00 Mechanical Ventilator 03/03/19 08:00 98.3 88 14 145/88 (107) 100 03/03/19 08:00 87 03/03/19 07:06 87 14 40 03/03/19 05:30 82 14 40 03/03/19 04:00 98.1 90 15 139/80 (99) 95 03/03/19 04:00 40 03/03/19 04:00 Mechanical Ventilator 03/03/19 03:27 109 03/03/19 03:20 109 14 40 03/03/19 01:30 82 17 40 03/03/19 00:00 98.0 81 15 124/83 (97) 100 03/03/19 00:00 Mechanical Ventilator 03/02/19 23:25 91 03/02/19 22:50 80 14 40 03/02/19 21:45 83 15 100 Mechanical Ventilator 40 03/02/19 21:28 82 15 100 Mechanical Ventilator 40 03/02/19 21:28 40 03/02/19 21:27 82 15 40 03/02/19 20:00 40 03/02/19 20:00 Mechanical Ventilator 03/02/19 20:00 98.6 86 16 117/72 (87) 99 03/02/19 19:20 90 20 40 03/02/19 19:13 92 03/02/19 17:14 86 22 40 03/02/19 16:00 40 03/02/19 16:00 Mechanical Ventilator 03/02/19 16:00 98.4 80 18 129/74 (92) 100 03/02/19 16:00 80 03/02/19 15:07 86 20 40 03/02/19 12:40 84 19 40 03/02/19 12:00 40 03/02/19 12:00 82 03/02/19 12:00 Mechanical Ventilator 03/02/19 12:00 98.4 79 17 115/73 (87) 100 03/02/19 10:40 81 15 40 Status: awake Condition: critical Neck: full ROM Lungs: clear Heart: HR/BP stable, regular Abdomen: non-tender, feeding tube Extremities: edema Decubiti: location Micro: Microbiology Date/Time Source Procedure Growth Status 03/01/19 04:30 Stool Clostridium difficile Toxin Assay - Final Complete Accucheck: 171 Critical Care - Subjective Condition: critical EKG Rhythm: Sinus Rhythm FI02: 40 Vent Support Breath Rate: 14 Vent Support Mode: AC Vent Tidal Volume: 450 Sputum Amount: Small PEEP: 5.0 PIP: 21 Tube Feeding Amount: 50 I&O: Intake and Output 03/02/19 03/03/19 19:00 07:00 Intake Total 950 ml 2100 ml Output Total 1775 ml Balance 950 ml 325 ml Intake Free Water 90 ml 300 ml IV Total 400 ml 1200 ml Tube Feeding 400 ml 600 ml Other 60 ml Output Urine Total 1600 ml Stool Total 175 ml CXR: no change Labs: Laboratory Tests Test 03/03/19 03:50 White Blood Count 11.7 K/UL (4.8-10.8) H Red Blood Count 3.70 M/UL (4.20-5.40) L Hemoglobin 9.6 G/DL (12.0-16.0) L Hematocrit 31.6 % (37.0-47.0) L Mean Corpuscular Volume 85 FL (80-99) Mean Corpuscular Hemoglobin 26.0 PG (27.0-31.0) L Mean Corpuscular Hemoglobin Concent 30.4 G/DL (32.0-36.0) L Red Cell Distribution Width 17.0 % (11.6-14.8) H Platelet Count 440 K/UL (150-450) Mean Platelet Volume 5.3 FL (6.5-10.1) L Neutrophils (%) (Auto) 79.4 % (45.0-75.0) H Lymphocytes (%) (Auto) 15.9 % (20.0-45.0) L Monocytes (%) (Auto) 1.8 % (1.0-10.0) Eosinophils (%) (Auto) 2.5 % (0.0-3.0) Basophils (%) (Auto) 0.4 % (0.0-2.0) Sodium Level 140 MMOL/L (136-145) Potassium Level 4.4 MMOL/L (3.5-5.1) Chloride Level 101 MMOL/L (98-107) Carbon Dioxide Level 34 MMOL/L (21-32) H Anion Gap 5 mmol/L (5-15) Blood Urea Nitrogen 13 mg/dL (7-18) Creatinine 0.3 MG/DL (0.55-1.30) L Estimat Glomerular Filtration Rate > 60 mL/min (>60) Glucose Level 139 MG/DL (74-106) H Calcium Level 11.2 MG/DL (8.5-10.1) H Total Bilirubin 0.1 MG/DL (0.2-1.0) L Aspartate Amino Transf (AST/SGOT) 22 U/L (15-37) Alanine Aminotransferase (ALT/SGPT) 59 U/L (12-78) Alkaline Phosphatase 111 U/L (46-116) Total Protein 7.4 G/DL (6.4-8.2) Albumin 2.2 G/DL (3.4-5.0) L Globulin 5.2 g/dL Albumin/Globulin Ratio 0.4 (1.0-2.7) L Rula Corrigan MD Mar 03, 2019 10:40
[2019-03-03] MEDS: Colistin for inhalation INH SCH ×2 (10:45→22:08)
--- NOTE | 2019-03-03 10:46 | Pulmonolgy Critical Care Note ---
Critical Care - Asmt/Plan Problems: (1) Acute and chronic respiratory failure (2) MDRO (multiple drug resistant organisms) resistance (3) Pneumonia involving left lung (4) Sepsis (5) Severe anemia (6) UTI (urinary tract infection) (7) Feeding by G-tube (8) Functional quadriplegia Respiratory: monitor respiratory rate, adjust FIO2 Cardiac: continue to monitor HR/BP Renal: F/U I&O, keep IV fluid, check electrolytes Infectious Disease: check cultures Gastrointestinal: continue feedings/current rate, hold feedings Endocrine: monitor blood sugar Hematologic: transfuse if hgb<8.5 Neurologic: keep patient comfortable Prophylaxis: Protonix Notes Reviewed: 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 with: nurses, consultants, social work case managercapacity manager - Objective Last 24 Hour Vital Signs Date Time Temp Pulse Resp B/P (MAP) Pulse Ox O2 Delivery O2 Flow Rate FiO2 03/03/19 08:43 74 18 40 03/03/19 08:00 40 03/03/19 08:00 Mechanical Ventilator 03/03/19 08:00 98.3 88 14 145/88 (107) 100 03/03/19 08:00 87 03/03/19 07:06 87 14 40 03/03/19 05:30 82 14 40 03/03/19 04:00 98.1 90 15 139/80 (99) 95 03/03/19 04:00 40 03/03/19 04:00 Mechanical Ventilator 03/03/19 03:27 109 03/03/19 03:20 109 14 40 03/03/19 01:30 82 17 40 03/03/19 00:00 98.0 81 15 124/83 (97) 100 03/03/19 00:00 Mechanical Ventilator 03/02/19 23:25 91 03/02/19 22:50 80 14 40 03/02/19 21:45 83 15 100 Mechanical Ventilator 40 03/02/19 21:28 82 15 100 Mechanical Ventilator 40 03/02/19 21:28 40 03/02/19 21:27 82 15 40 03/02/19 20:00 40 03/02/19 20:00 Mechanical Ventilator 03/02/19 20:00 98.6 86 16 117/72 (87) 99 03/02/19 19:20 90 20 40 03/02/19 19:13 92 03/02/19 17:14 86 22 40 03/02/19 16:00 40 03/02/19 16:00 Mechanical Ventilator 03/02/19 16:00 98.4 80 18 129/74 (92) 100 03/02/19 16:00 80 03/02/19 15:07 86 20 40 03/02/19 12:40 84 19 40 03/02/19 12:00 40 03/02/19 12:00 82 03/02/19 12:00 Mechanical Ventilator 03/02/19 12:00 98.4 79 17 115/73 (87) 100 Status: awake Condition: critical, grave Heart: HR/BP stable, regular Abdomen: non-tender Extremities: edema Decubiti: location Micro: Microbiology Date/Time Source Procedure Growth Status 03/01/19 04:30 Stool Clostridium difficile Toxin Assay - Final Complete Accucheck: 171 Critical Care - Subjective ROS Limited/Unobtainable: Yes Condition: critical EKG Rhythm: Sinus Rhythm FI02: 40 Vent Support Breath Rate: 14 Vent Support Mode: AC Vent Tidal Volume: 450 Sputum Amount: Small PEEP: 5.0 PIP: 21 Tube Feeding Amount: 50 I&O: Intake and Output 03/02/19 03/03/19 19:00 07:00 Intake Total 950 ml 2100 ml Output Total 1775 ml Balance 950 ml 325 ml Intake Free Water 90 ml 300 ml IV Total 400 ml 1200 ml Tube Feeding 400 ml 600 ml Other 60 ml Output Urine Total 1600 ml Stool Total 175 ml Labs: Laboratory Tests Test 03/03/19 03:50 White Blood Count 11.7 K/UL (4.8-10.8) H Red Blood Count 3.70 M/UL (4.20-5.40) L Hemoglobin 9.6 G/DL (12.0-16.0) L Hematocrit 31.6 % (37.0-47.0) L Mean Corpuscular Volume 85 FL (80-99) Mean Corpuscular Hemoglobin 26.0 PG (27.0-31.0) L Mean Corpuscular Hemoglobin Concent 30.4 G/DL (32.0-36.0) L Red Cell Distribution Width 17.0 % (11.6-14.8) H Platelet Count 440 K/UL (150-450) Mean Platelet Volume 5.3 FL (6.5-10.1) L Neutrophils (%) (Auto) 79.4 % (45.0-75.0) H Lymphocytes (%) (Auto) 15.9 % (20.0-45.0) L Monocytes (%) (Auto) 1.8 % (1.0-10.0) Eosinophils (%) (Auto) 2.5 % (0.0-3.0) Basophils (%) (Auto) 0.4 % (0.0-2.0) Sodium Level 140 MMOL/L (136-145) Potassium Level 4.4 MMOL/L (3.5-5.1) Chloride Level 101 MMOL/L (98-107) Carbon Dioxide Level 34 MMOL/L (21-32) H Anion Gap 5 mmol/L (5-15) Blood Urea Nitrogen 13 mg/dL (7-18) Creatinine 0.3 MG/DL (0.55-1.30) L Estimat Glomerular Filtration Rate > 60 mL/min (>60) Glucose Level 139 MG/DL (74-106) H Calcium Level 11.2 MG/DL (8.5-10.1) H Total Bilirubin 0.1 MG/DL (0.2-1.0) L Aspartate Amino Transf (AST/SGOT) 22 U/L (15-37) Alanine Aminotransferase (ALT/SGPT) 59 U/L (12-78) Alkaline Phosphatase 111 U/L (46-116) Total Protein 7.4 G/DL (6.4-8.2) Albumin 2.2 G/DL (3.4-5.0) L Globulin 5.2 g/dL Albumin/Globulin Ratio 0.4 (1.0-2.7) L Rula Corrigan MD Mar 03, 2019 10:46
--- NOTE | 2019-03-03 11:02 | NUR ---
*-* INSURANCE *-* UPDATED CLINICALS AND REVIEWS HAVE BEEN FAXED TO: [employer] P- [phone] F- [phone]
[2019-03-03 12:00] VITALS: BP 129/85
--- NOTE | 2019-03-03 13:15 | NUR ---
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 SEPSIS VS: BP 145/88, P 101, T 97.9, RR 14, SpO2 98 AC 14, TV 450, PEEP 5.0, FiO1 40 WBC 11.7, RBC 3.70, Hgb 9.6, Hct 31.6, CR 0.3 CXR Impression: Increasing left lung volume loss, consolidation, and left-sided pleural fluid, over 3 days. IS:D5/NS x1L IV HEPARIN SUBQ PROTONIX 40mg IVP MINOCIN 100mg COLISTIN 150mg INH MUPIROCIN TOPICAL SDU STATUS
--- NOTE | 2019-03-03 13:57 | NUR ---
HAND-OFF: Report given to DB Santiago. Stable condition.
[2019-03-03 16:00] VITALS: BP 129/78
--- NOTE | 2019-03-03 16:00 | Progress Note ---
DATE: 03/02/2019 SUBJECTIVE: The patient is afebrile and hemodynamically stable. PHYSICAL EXAMINATION: VITAL SIGNS: Blood pressure is 117/72, pulse is 82, respirations of 15, temperature 98.6. HEENT: Eyes were normal. ENT, mucous membranes were moist and intact. NECK: Supple with no JVD without lymph nodes. Tracheostomy site is clean. LUNGS: Clear without rhonchi, rales, or wheezing. Secretions are small, thin, and robison. HEART: Normal sounds with regular beats. There is no pericardial rub. ABDOMEN: Soft and nontender with normal bowel sounds. Gastrostomy site is clean. EXTREMITIES: Warm without cyanosis, clubbing, or edema. LABORATORY AND DIAGNOSTIC DATA: Hemoglobin is 9.2, hematocrit 29.8 with MCV of 85, WBC of 13.8, and platelets of 40. Her BUN and creatinine 11 and 0.3 respectively. Her sodium is 132, potassium 4.2, chloride 104, CO2 was 24. Calcium is 11. Phosphorus is 3.5 and magnesium is 2.1. SGOT and SGPT are normal. Albumin is 2.0. Total protein 7.1. IMPRESSION: The patient has no leukocytosis, afebrile without tachycardia. Repeat laboratory tests and chest x-ray will be done in the a.m. The patient can be discharged again be cleared by infectious disease specialist. Bassem Bruce M.D. DR: JHONY JOB#: [id number] CC:
--- NOTE | 2019-03-03 16:00 | NUR ---
NURSE NOTES: Observed patient in bed. Open eyes but unable to follow command. Trach to vent with previous setting with no distress noted. No s/s of pain at this time. IVF running at prescribed rate. GT site intact with ongoing feeding. HOB elevated. No residual noted. F/C and rectal rube intact and draining well. Bed in lowest position. Call light within reach. Will continue to monitor.
--- NOTE | 2019-03-03 16:04 | General Progress Note ---
Assessment/Plan Assessment/Plan Assessment and Recs # Anemia of chronic disease due to underlying chronic medical issues, multifactorial --> Anemia workup has been ordered/reviewed and c/w acd --> No evidence of hemolysis is noted, peripheral smear has been reviewed. --> Hgb goal >7. Transfuse prn. --> Epogen or iron at this time is not indicated --> Medications have been reviewed --> evaluate with Gi team prn --> hgb trend 8.1-->8.2-->9.2-->9.6 # Leukocytosis/Elevated white blood cell count, unspecified likely related to underlying stress reaction, smoking v more likely infection --> have reviewed peripheral smear and bandemia/neutrophilia noted --> continue antibiotics if they have been started by ID team --> monitor for resolution on cxr for pna --> trend wbc 18k-->12.5k-->11k-->13k # Thrombocytosis again similar to above --> likely related to infection, monitor for resolution # Transaminitis/elevated lffts --> on abx # Chronic respiratory failure s/p trach/vent # Dysphagia is s/p PEG # Anxiety # Schizoaffective disorder # [facility] resident # MDR organisms --> on abx as per id The timing of this note does not necessarily reflect the time of the patient was seen. Greatly appreciate consultation! Subjective Constitutional: Denies: no symptoms, chills, diaphoresis, fever, malaise, weakness, other HEENT: Denies: no symptoms, eye pain, blurred vision, tearing, double vision, ear pain, ear discharge, nose pain, nose congestion, throat pain, throat swelling, mouth pain, mouth swelling, other Cardiovascular: Denies: no symptoms, chest pain, edema, irregular heart rate, lightheadedness, palpitations, syncope, other Respiratory: Denies: no symptoms, cough, orthopnea, shortness of breath, SOB with excertion, SOB at rest, sputum, stridor, wheezing, other Gastrointestinal/Abdominal: Denies: no symptoms, abdomen distended, abdominal pain, black stools, tarry stools, blood in stool, constipated, diarrhea, difficulty swallowing, nausea, poor appetite, poor fluid intake, rectal bleeding , vomiting, other Genitourinary: Denies: no symptoms, burning, discharge, frequency, flank pain, hematuria, incontinence, pain, urgency, other Allergies: Coded Allergies: DIPHENHYDRAMINE (Verified Allergy, Unknown, 02/24/19) FLUPHENAZINE (Verified Allergy, Unknown, 02/24/19) Subjective 02/25: no events, on abx, is in the sdu, will be getting prbc transfusion today 02/27: no f/c, hgb remains low, hgb 8.1, remains in the sdu, on vent 02/28: open eyes and more following commands, on vent 03/01: leaking rectal tube but no bleeding, cbc reviewed, on broad spectrum abx mdr 03/02: on abx, vent=+, nonverbal, gtube functioning in place 03/03: continuing broad spectrum abx, cxr imaging reviewed, cm notes reviewed Objective Last 24 Hour Vital Signs Date Time Temp Pulse Resp B/P (MAP) Pulse Ox O2 Delivery O2 Flow Rate FiO2 03/03/19 15:19 72 14 40 03/03/19 13:55 31 14 40 03/03/19 12:00 97.9 101 16 129/85 (100) 98 03/03/19 12:00 40 03/03/19 12:00 101 03/03/19 12:00 Mechanical Ventilator 03/03/19 10:55 77 20 99 Mechanical Ventilator 40 03/03/19 10:46 40 03/03/19 10:45 76 16 98 Mechanical Ventilator 40 03/03/19 10:44 76 16 40 03/03/19 08:43 74 18 40 03/03/19 08:00 40 03/03/19 08:00 Mechanical Ventilator 03/03/19 08:00 98.3 88 14 145/88 (107) 100 03/03/19 08:00 87 03/03/19 07:06 87 14 40 03/03/19 05:30 82 14 40 03/03/19 04:00 98.1 90 15 139/80 (99) 95 03/03/19 04:00 40 03/03/19 04:00 Mechanical Ventilator 03/03/19 03:27 109 03/03/19 03:20 109 14 40 03/03/19 01:30 82 17 40 03/03/19 00:00 98.0 81 15 124/83 (97) 100 03/03/19 00:00 Mechanical Ventilator 03/02/19 23:25 91 03/02/19 22:50 80 14 40 03/02/19 21:45 83 15 100 Mechanical Ventilator 40 03/02/19 21:28 82 15 100 Mechanical Ventilator 40 03/02/19 21:28 40 03/02/19 21:27 82 15 40 03/02/19 20:00 40 03/02/19 20:00 Mechanical Ventilator 03/02/19 20:00 98.6 86 16 117/72 (87) 99 03/02/19 19:20 90 20 40 03/02/19 19:13 92 03/02/19 17:14 86 22 40 Intake and Output 03/02/19 03/03/19 19:00 07:00 Intake Total 950 ml 2100 ml Output Total 1775 ml Balance 950 ml 325 ml Intake Free Water 90 ml 300 ml IV Total 400 ml 1200 ml Tube Feeding 400 ml 600 ml Other 60 ml Output Urine Total 1600 ml Stool Total 175 ml Laboratory Tests 03/03/19 03:50: White Blood Count 11.7H, Red Blood Count 3.70L, Hemoglobin 9.6L, Hematocrit 31.6L, Mean Corpuscular Volume 85, Mean Corpuscular Hemoglobin 26.0L, Mean Corpuscular Hemoglobin Concent 30.4L, Red Cell Distribution Width 17.0H, Platelet Count 440, Mean Platelet Volume 5.3L, Neutrophils (%) (Auto) 79.4H, Lymphocytes (%) (Auto) 15.9L, Monocytes (%) (Auto) 1.8, Eosinophils (%) (Auto) 2.5, Basophils (%) (Auto) 0.4, Sodium Level 140, Potassium Level 4.4, Chloride Level 101, Carbon Dioxide Level 34H, Anion Gap 5, Blood Urea Nitrogen 13, Creatinine 0.3L, Estimat Glomerular Filtration Rate > 60, Glucose Level 139H, Calcium Level 11.2H, Total Bilirubin 0.1L, Aspartate Amino Transf (AST/SGOT) 22 , Alanine Aminotransferase (ALT/SGPT) 59, Alkaline Phosphatase 111, Total Protein 7.4, Albumin 2.2L, Globulin 5.2, Albumin/Globulin Ratio 0.4L Height (Feet): 5 Height (Inches): 6.00 Weight (Pounds): 175 Objective Sp02 EP Interpretation: reviewed, normal General Appearance: alert, Chronically Ill Head: normocephalic, atraumatic Eyes: bilateral eye normal inspection, bilateral eye PERRL, bilateral eye EOMI ENT: moist mucus membranes Neck: supple, ++ tracheotomy Respiratory: rales, rhonchi, wheezing, expiration, other - Thick secretions Cardiovascular: tachycardia, edema Gastrointestinal: soft, decreased bowel sounds ++ peg Musculoskeletal: swelling Neurologic: responsive, [employer] III-XII nml as tested, motor weakness - R hemiparesis, flaccid L upper arm, able to move L foot, sensory deficit Tod Bradley MD Mar 03, 2019 16:04
--- NOTE | 2019-03-03 16:17 | Surgery Progress Note ---
Surgery Progress Note Subjective Additional Comments Patient seen and examined at bedside no acute events. Labs noted vitals stable exam unchanged. Objective Last 24 Hour Vital Signs Date Time Temp Pulse Resp B/P (MAP) Pulse Ox O2 Delivery O2 Flow Rate FiO2 03/03/19 15:19 72 14 40 03/03/19 13:55 31 14 40 03/03/19 12:00 97.9 101 16 129/85 (100) 98 03/03/19 12:00 40 03/03/19 12:00 101 03/03/19 12:00 Mechanical Ventilator 03/03/19 10:55 77 20 99 Mechanical Ventilator 40 03/03/19 10:46 40 03/03/19 10:45 76 16 98 Mechanical Ventilator 40 03/03/19 10:44 76 16 40 03/03/19 08:43 74 18 40 03/03/19 08:00 40 03/03/19 08:00 Mechanical Ventilator 03/03/19 08:00 98.3 88 14 145/88 (107) 100 03/03/19 08:00 87 03/03/19 07:06 87 14 40 03/03/19 05:30 82 14 40 03/03/19 04:00 98.1 90 15 139/80 (99) 95 03/03/19 04:00 40 03/03/19 04:00 Mechanical Ventilator 03/03/19 03:27 109 03/03/19 03:20 109 14 40 03/03/19 01:30 82 17 40 03/03/19 00:00 98.0 81 15 124/83 (97) 100 03/03/19 00:00 Mechanical Ventilator 03/02/19 23:25 91 03/02/19 22:50 80 14 40 03/02/19 21:45 83 15 100 Mechanical Ventilator 40 03/02/19 21:28 82 15 100 Mechanical Ventilator 40 03/02/19 21:28 40 03/02/19 21:27 82 15 40 03/02/19 20:00 40 03/02/19 20:00 Mechanical Ventilator 03/02/19 20:00 98.6 86 16 117/72 (87) 99 03/02/19 19:20 90 20 40 03/02/19 19:13 92 03/02/19 17:14 86 22 40 I&O Intake and Output 03/02/19 03/03/19 19:00 07:00 Intake Total 950 ml 2100 ml Output Total 1775 ml Balance 950 ml 325 ml Intake Free Water 90 ml 300 ml IV Total 400 ml 1200 ml Tube Feeding 400 ml 600 ml Other 60 ml Output Urine Total 1600 ml Stool Total 175 ml Dressing: saturated Wound: clean, other Drains: other Cardiovascular: RSR Respiratory: decreased breath sounds Abdomen: soft, non-tender, non-distended Extremities: no tenderness, no cyanosis Laboratory Tests Test 03/03/19 03:50 White Blood Count 11.7 K/UL (4.8-10.8) H Red Blood Count 3.70 M/UL (4.20-5.40) L Hemoglobin 9.6 G/DL (12.0-16.0) L Hematocrit 31.6 % (37.0-47.0) L Mean Corpuscular Volume 85 FL (80-99) Mean Corpuscular Hemoglobin 26.0 PG (27.0-31.0) L Mean Corpuscular Hemoglobin Concent 30.4 G/DL (32.0-36.0) L Red Cell Distribution Width 17.0 % (11.6-14.8) H Platelet Count 440 K/UL (150-450) Mean Platelet Volume 5.3 FL (6.5-10.1) L Neutrophils (%) (Auto) 79.4 % (45.0-75.0) H Lymphocytes (%) (Auto) 15.9 % (20.0-45.0) L Monocytes (%) (Auto) 1.8 % (1.0-10.0) Eosinophils (%) (Auto) 2.5 % (0.0-3.0) Basophils (%) (Auto) 0.4 % (0.0-2.0) Sodium Level 140 MMOL/L (136-145) Potassium Level 4.4 MMOL/L (3.5-5.1) Chloride Level 101 MMOL/L (98-107) Carbon Dioxide Level 34 MMOL/L (21-32) H Anion Gap 5 mmol/L (5-15) Blood Urea Nitrogen 13 mg/dL (7-18) Creatinine 0.3 MG/DL (0.55-1.30) L Estimat Glomerular Filtration Rate > 60 mL/min (>60) Glucose Level 139 MG/DL (74-106) H Calcium Level 11.2 MG/DL (8.5-10.1) H Total Bilirubin 0.1 MG/DL (0.2-1.0) L Aspartate Amino Transf (AST/SGOT) 22 U/L (15-37) Alanine Aminotransferase (ALT/SGPT) 59 U/L (12-78) Alkaline Phosphatase 111 U/L (46-116) Total Protein 7.4 G/DL (6.4-8.2) Albumin 2.2 G/DL (3.4-5.0) L Globulin 5.2 g/dL Albumin/Globulin Ratio 0.4 (1.0-2.7) L Plan Problems: (1) Decubitus skin ulcer Assessment & Plan: Pt presented on admission with unstageable wound L earlobe.Wound has 95% soft necrosis ,5% viable. (L)2.5cm x (W)0.7cm. Periwound earlobe extending into ear canal has darker than is normal skin tone. Full thickness sacral pressure injury with 10% slough otherwise wound is viable with measureable depth at coccyx. Pt flinches each time area is minimally palpated. ( L)2.5cm x (W)7.5cm x (D)0.4cm.Edges of wound macerated. Erythema periwound. Bilat heels firm and easily blanchable. Tx.PLan: Cleanse Sacral wound with Saline. Apply Therahoney .Apply Triad periwound.Cover with Optifoam drsg .Change daily and prn. Cleanse L ear with Saline. Apply Bactroban . Cover with Optifoam drsg .Change Daily and prn. Apply Cavilon to both heels .Cover each heel with Optifoam drsg. Change every 7 days and prn. Please maintain Foam Mold around L ear to reduce pressure from ear. Reposition at least every 2 hours or as tolerated. Off-load heels with Pillow. APM/SYLVIA mattress. (2) Functional quadriplegia (3) UTI (urinary tract infection) Levon Nunes Mar 03, 2019 16:17
--- NOTE | 2019-03-03 18:51 | NUR ---
RESPIRATORY NOTE: Received pt. on 840 vent. Vent settings are: A/C rate of 14, Vt 450, FI02 40%, PEEP +5. No respiratory distress noted, pt. Sp02 @ 100%. Ambu bag @ BS. Vent plugged on red outlet. Will continue to monitor pt.
--- NOTE | 2019-03-03 19:07 | NUR ---
HAND-OFF: Report given to Khushbu rn using SBAR. VSS. NO distress noted.
--- NOTE | 2019-03-03 19:18 | NUR ---
NURSE NOTES: Report received from DB Santiago. Patient seen in bed in semi rivera position with vent on previous setting. sp02 is 99%. Patient is non verbal but able to open eyes and smile randomly. No S/Sx of pain is noted via FLACC scale. GT feeding Twocal 2.0 is running at 50cc/hr, GT site is intact. Noted with alberto and rectal tube and its intact. IV site is to left hand 18g and right wrist 22g. Currently on IVF of D5 1/2 NS running at 100cc/hr. Bed is in lowest position. Call light is within easy reach while in bed. Will continue to monitor.
[2019-03-03 20:00] VITALS: BP 113/78
[2019-03-04] VITALS: BP 104/71
[2019-03-04 04:00] VITALS: BP 108/60
--- NOTE | 2019-03-04 04:30 | Progress Note ---
DATE: 03/03/2019 SUBJECTIVE: The patient is awake and alert. He has low-grade fever, but with normal mentation status, facial expression and intermittent smile. PHYSICAL EXAMINATION: VITAL SIGNS: Blood pressure 116/90, pulse is 87, respirations of 15, and temperature 99.1. HEENT: Eyes were normal. ENT, mucous membranes were moist and intact. NECK: Supple with no JVD without lymph nodes. Tracheostomy site is clean. LUNGS: Clear without rhonchi, rales, or wheezing. Secretions are small, thin, and coronado. HEART: Normal sounds with regular beats. There is intermittent tachycardia at rest. ABDOMEN: Soft and nontender with normal bowel sounds. Gastrostomy site is clean. EXTREMITIES: Warm without cyanosis, clubbing, or edema. LABORATORY AND DIAGNOSTIC DATA: Hemoglobin is 9.6, hematocrit 31.6 with MCV of 85, WBC of 11.7, and platelets of 440,000. Her BUN and creatinine are 13 and 0.3 respectively. Sodium is 140, potassium 4.4, chloride 101, CO2 24, and calcium is 11.2. SGOT, SGPT, and alkaline phosphatase are normal. Albumin is 2.2. Her total protein is 7.4. Yesterday, albumin was 2 and total protein 7.1. Chest x-ray revealed increased opacification of the left lung and increased volume loss. pleural space remained clear. The impression is increased consolidation of the left lung and pleural effusion. IMPRESSION AND PLAN: . The patient clinically appears better than yesterday and previous day. Repeat laboratory tests will be done in the a.m. Bassem Bruce M.D. DR: DEANNA JOB#: [id number] CC:
[2019-03-04] MEDS: D5 1/2NS 1,000 ML IV SCH ×2 (05:12→23:35)
[2019-03-04 05:30] LABS: BASOPHILS % (AUTO) 0.6 % (0.0-2.0); HEMOGLOBIN 8.9 G/DL (12.0-16.0); MEAN CORPUSCULAR VOLUME 85 FL (80-99); MONOCYTES % (AUTO) 3.5 % (1.0-10.0); PLATELET COUNT 362 K/UL (150-450); RED BLOOD COUNT 3.41 M/UL (4.20-5.40); RED CELL DISTRIBUTION WIDTH 16.9 % (11.6-14.8); WHITE BLOOD COUNT 9.7 K/UL (4.8-10.8)
[2019-03-04 05:55] LABS: ANION GAP 4 mmol/L (5-15); BLOOD UREA NITROGEN 14 mg/dL (7-18); CALCIUM 11.3 MG/DL (8.5-10.1); CARBON DIOXIDE 33 MMOL/L (21-32); CHLORIDE 101 MMOL/L (98-107); CREATININE 0.4 MG/DL (0.55-1.30); POTASSIUM 4.8 MMOL/L (3.5-5.1); SODIUM 138 MMOL/L (136-145)
--- NOTE | 2019-03-04 07:02 | NUR ---
HAND-OFF: Report given to Vianey Torres RN.
--- NOTE | 2019-03-04 07:17 | NUR ---
NURSE NOTES: Report received from DB Romero. Observed patient in bed sleeping. Open eyes by touching. Trach to vent with previous setting with tolerated well. No s/s of pain at this time. GT site intact and ongoing feeding. HOB elevated. No residual noted. F/C and rectal tube intact and draining well. Bed in lowest position. Call light within reach. Will continue to monitor.
--- NOTE | 2019-03-04 07:32 | Infectious Diseases Prog Note ---
Assessment/Plan Assessment/Plan Assessment: Sepsis 2ryt o Probable PNA and UTI -CXR: Diffuse opacity projected over the left hemithorax. Suspect pleural disease either pleural effusion or pleural thickening. Difficult to exclude underlying parenchymal disease. -sp cx MDR ABC (S minocycline, colistin, polymixin B) -u/a wbc 10-15, nit neg, leuk +3; ucx p -influenza sc neg Afebrile Leukocytosis, improving Elevated LFTs chronic respiratory failure s/p trach/vent PEG anxiety schizoaffective disorder assisted resident Plan: -Cont INH Colistin and Minocycline #5/ for MDR ABC sp -02/28 SP IV Vancomycin and Zosyn #5 -02/24 SP Cefepime and LEvaquin x1 -f.u cx -Monitor CBC/CMP, temperatures -f/u legionella ag urince -PEG/Trach care Will continue to follow along with you. Subjective Allergies: Coded Allergies: DIPHENHYDRAMINE (Verified Allergy, Unknown, 02/24/19) FLUPHENAZINE (Verified Allergy, Unknown, 02/24/19) Subjective Afebrile Leukocytosis resolved Objective Vital Signs Last 24 Hour Vital Signs Date Time Temp Pulse Resp B/P (MAP) Pulse Ox O2 Delivery O2 Flow Rate FiO2 03/04/19 05:29 88 16 40 03/04/19 04:00 98.9 80 14 108/60 (76) 98 03/04/19 04:00 Mechanical Ventilator 03/04/19 04:00 40 03/04/19 03:40 83 03/04/19 03:15 86 16 40 03/04/19 01:24 90 16 40 03/04/19 00:00 81 03/04/19 00:00 99.1 80 14 104/71 (82) 100 03/04/19 00:00 Mechanical Ventilator 03/03/19 23:28 81 14 40 03/03/19 22:18 40 03/03/19 22:18 87 14 100 Mechanical Ventilator 40 03/03/19 22:08 81 14 100 Mechanical Ventilator 40 03/03/19 22:01 81 14 40 03/03/19 20:00 99.1 87 15 113/78 (90) 99 03/03/19 20:00 Mechanical Ventilator 03/03/19 20:00 40 03/03/19 19:03 87 03/03/19 18:53 90 15 40 03/03/19 17:16 92 20 40 03/03/19 16:00 Mechanical Ventilator 03/03/19 16:00 40 03/03/19 16:00 96 03/03/19 16:00 99.0 95 16 129/78 (95) 98 03/03/19 15:19 72 14 40 03/03/19 13:55 31 14 40 03/03/19 12:00 97.9 101 16 129/85 (100) 98 03/03/19 12:00 40 03/03/19 12:00 101 03/03/19 12:00 Mechanical Ventilator 03/03/19 10:55 77 20 99 Mechanical Ventilator 40 03/03/19 10:46 40 03/03/19 10:45 76 16 98 Mechanical Ventilator 40 03/03/19 10:44 76 16 40 03/03/19 08:43 74 18 40 03/03/19 08:00 40 03/03/19 08:00 Mechanical Ventilator 03/03/19 08:00 98.3 88 14 145/88 (107) 100 03/03/19 08:00 87 Height (Feet): 5 Height (Inches): 6.00 Weight (Pounds): 175 Objective General. NAD, On vent HEENT: NCAT, MMM, PERRL, Trached Respiratory/Chest: Course B/L Cardiovascular/Chest: RR, S1, S2, Abdomen: normal bowel sounds, Not distended Laboratory Tests Test 03/04/19 03:50 White Blood Count 9.7 K/UL (4.8-10.8) Red Blood Count 3.41 M/UL (4.20-5.40) L Hemoglobin 8.9 G/DL (12.0-16.0) L Hematocrit 29.0 % (37.0-47.0) L Mean Corpuscular Volume 85 FL (80-99) Mean Corpuscular Hemoglobin 26.2 PG (27.0-31.0) L Mean Corpuscular Hemoglobin Concent 30.8 G/DL (32.0-36.0) L Red Cell Distribution Width 16.9 % (11.6-14.8) H Platelet Count 362 K/UL (150-450) Mean Platelet Volume 5.4 FL (6.5-10.1) L Neutrophils (%) (Auto) 75.0 % (45.0-75.0) Lymphocytes (%) (Auto) 19.0 % (20.0-45.0) L Monocytes (%) (Auto) 3.5 % (1.0-10.0) Eosinophils (%) (Auto) 2.0 % (0.0-3.0) Basophils (%) (Auto) 0.6 % (0.0-2.0) Sodium Level 138 MMOL/L (136-145) Potassium Level 4.8 MMOL/L (3.5-5.1) Chloride Level 101 MMOL/L (98-107) Carbon Dioxide Level 33 MMOL/L (21-32) H Anion Gap 4 mmol/L (5-15) L Blood Urea Nitrogen 14 mg/dL (7-18) Creatinine 0.4 MG/DL (0.55-1.30) L Estimat Glomerular Filtration Rate > 60 mL/min (>60) Glucose Level 142 MG/DL (74-106) H Calcium Level 11.3 MG/DL (8.5-10.1) H Current Medications Medications (Trade) Dose Ordered Sig/Lavon Route PRN Reason Start Time Stop Time Status Last Admin Dose Admin Colistimethate Sodium (Colistin *inhalation use only*) 150 mg Q12HRT INH 02/28/19 22:00 03/07/19 21:59 03/03/19 22:08 Dextrose/Sodium Chloride 1,000 ml @ 100 mls/hr Q10H IV 02/24/19 16:00 03/26/19 15:59 03/04/19 05:12 Heparin Sodium (Porcine) (Heparin 5000 units/ml) 5,000 units EVERY 12 HOURS SUBQ 02/24/19 21:00 03/26/19 20:59 03/03/19 20:02 Minocycline HCl (Minocin) 100 mg Q12HR ORAL 02/28/19 21:00 03/07/19 20:59 03/03/19 20:01 Mupirocin (Bactroban Oint) 1 applic THREE TIMES A DAY TOPIC 03/01/19 13:00 03/06/19 12:59 03/03/19 18:08 Pantoprazole (Protonix) 40 mg DAILY IVP 02/25/19 09:00 03/27/19 08:59 03/03/19 08:17 Chadwick Keith MD Mar 04, 2019 07:32
[2019-03-04 08:00] VITALS: BP 118/75
[2019-03-04] MEDS: Pantoprazole Inj IVP SCH (08:11)
[2019-03-04] MEDS: Minocycline HCl 50mg cap ORAL SCH ×2 (08:11→20:34)
[2019-03-04] MEDS: Heparin 5000 units/ml inj SUBQ SCH ×2 (08:13→20:35)
[2019-03-04] MEDS: Colistin for inhalation INH SCH ×2 (10:01→21:24)
--- NOTE | 2019-03-04 11:19 | Surgery Progress Note ---
Surgery Progress Note Subjective Additional Comments No acute events. Leukocytosis resolved. Exam unchanged. Iabs improved. Vitals stable. Objective Last 24 Hour Vital Signs Date Time Temp Pulse Resp B/P (MAP) Pulse Ox O2 Delivery O2 Flow Rate FiO2 03/04/19 10:54 79 14 40 03/04/19 10:11 88 14 99 Mechanical Ventilator 40 03/04/19 10:01 85 15 100 Mechanical Ventilator 40 03/04/19 10:01 40 03/04/19 08:49 78 14 40 03/04/19 08:00 97.7 84 16 118/75 (89) 99 03/04/19 08:00 87 03/04/19 07:44 Mechanical Ventilator 03/04/19 07:43 40 03/04/19 07:35 79 14 40 03/04/19 05:29 88 16 40 03/04/19 04:00 98.9 80 14 108/60 (76) 98 03/04/19 04:00 Mechanical Ventilator 03/04/19 04:00 40 03/04/19 03:40 83 03/04/19 03:15 86 16 40 03/04/19 01:24 90 16 40 03/04/19 00:00 81 03/04/19 00:00 99.1 80 14 104/71 (82) 100 03/04/19 00:00 Mechanical Ventilator 03/03/19 23:28 81 14 40 03/03/19 22:18 40 03/03/19 22:18 87 14 100 Mechanical Ventilator 40 03/03/19 22:08 81 14 100 Mechanical Ventilator 40 03/03/19 22:01 81 14 40 03/03/19 20:00 99.1 87 15 113/78 (90) 99 03/03/19 20:00 Mechanical Ventilator 03/03/19 20:00 40 03/03/19 19:03 87 03/03/19 18:53 90 15 40 03/03/19 17:16 92 20 40 03/03/19 16:00 Mechanical Ventilator 03/03/19 16:00 40 03/03/19 16:00 96 03/03/19 16:00 99.0 95 16 129/78 (95) 98 03/03/19 15:19 72 14 40 03/03/19 13:55 31 14 40 03/03/19 12:00 97.9 101 16 129/85 (100) 98 03/03/19 12:00 40 03/03/19 12:00 101 03/03/19 12:00 Mechanical Ventilator I&O Intake and Output 03/03/19 03/04/19 18:59 06:59 Intake Total 1260 ml 1980 ml Output Total 1400 ml Balance 1260 ml 580 ml Intake Free Water 160 ml 200 ml IV Total 600 ml 1180 ml Tube Feeding 500 ml 600 ml Output Urine Total 1400 ml # Bowel Movements 50 Dressing: saturated Wound: clean Drains: other Cardiovascular: RSR Respiratory: decreased breath sounds Abdomen: soft, present bowel sounds, non-distended Extremities: no tenderness, no cyanosis Laboratory Tests Test 03/04/19 03:50 White Blood Count 9.7 K/UL (4.8-10.8) Red Blood Count 3.41 M/UL (4.20-5.40) L Hemoglobin 8.9 G/DL (12.0-16.0) L Hematocrit 29.0 % (37.0-47.0) L Mean Corpuscular Volume 85 FL (80-99) Mean Corpuscular Hemoglobin 26.2 PG (27.0-31.0) L Mean Corpuscular Hemoglobin Concent 30.8 G/DL (32.0-36.0) L Red Cell Distribution Width 16.9 % (11.6-14.8) H Platelet Count 362 K/UL (150-450) Mean Platelet Volume 5.4 FL (6.5-10.1) L Neutrophils (%) (Auto) 75.0 % (45.0-75.0) Lymphocytes (%) (Auto) 19.0 % (20.0-45.0) L Monocytes (%) (Auto) 3.5 % (1.0-10.0) Eosinophils (%) (Auto) 2.0 % (0.0-3.0) Basophils (%) (Auto) 0.6 % (0.0-2.0) Sodium Level 138 MMOL/L (136-145) Potassium Level 4.8 MMOL/L (3.5-5.1) Chloride Level 101 MMOL/L (98-107) Carbon Dioxide Level 33 MMOL/L (21-32) H Anion Gap 4 mmol/L (5-15) L Blood Urea Nitrogen 14 mg/dL (7-18) Creatinine 0.4 MG/DL (0.55-1.30) L Estimat Glomerular Filtration Rate > 60 mL/min (>60) Glucose Level 142 MG/DL (74-106) H Calcium Level 11.3 MG/DL (8.5-10.1) H Plan Problems: (1) Decubitus skin ulcer Assessment & Plan: Pt presented on admission with unstageable wound L earlobe.Wound has 95% soft necrosis ,5% viable. (L)2.5cm x (W)0.7cm. Periwound earlobe extending into ear canal has darker than is normal skin tone. Full thickness sacral pressure injury with 10% slough otherwise wound is viable with measureable depth at coccyx. Pt flinches each time area is minimally palpated. ( L)2.5cm x (W)7.5cm x (D)0.4cm.Edges of wound macerated. Erythema periwound. Bilat heels firm and easily blanchable. Tx.PLan: Cleanse Sacral wound with Saline. Apply Therahoney .Apply Triad periwound.Cover with Optifoam drsg .Change daily and prn. Cleanse L ear with Saline. Apply Bactroban . Cover with Optifoam drsg .Change Daily and prn. Apply Cavilon to both heels .Cover each heel with Optifoam drsg. Change every 7 days and prn. Please maintain Foam Mold around L ear to reduce pressure from ear. Reposition at least every 2 hours or as tolerated. Off-load heels with Pillow. APM/SYLVIA mattress. (2) Functional quadriplegia (3) UTI (urinary tract infection) Levon Nunes Mar 04, 2019 11:19
[2019-03-04 12:00] VITALS: BP 110/68
--- NOTE | 2019-03-04 13:16 | NUR ---
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 SEPSIS VS: BP 118/75, P 90, T 97.7, RR 14, SpO2 98 on VENT AC 14, TV 450, PEEP 5.0, FiO1 40 RBC 3.41, Hgb 8.9, Hct 29.0, CR 0.4 IS: D5/NS x1L IV HEPARIN SUBQ PROTONIX 40mg IVP MINOCIN 100mg COLISTIN 150mg INH MUPIROCIN TOPICAL SDU STATUS
--- NOTE | 2019-03-04 15:11 | NUR ---
*-* INSURANCE *-* UPDATED CLINICALS AND REVIEWS HAVE BEEN FAXED TO: [employer] P- [phone] F- [phone]
[2019-03-04 15:56] VITALS: BP 113/74
--- NOTE | 2019-03-04 16:01 | Pulmonolgy Critical Care Note ---
Critical Care - Asmt/Plan Problems: (1) Acute and chronic respiratory failure (2) MDRO (multiple drug resistant organisms) resistance (3) Pneumonia involving left lung (4) Sepsis (5) Severe anemia (6) UTI (urinary tract infection) (7) Feeding by G-tube (8) Functional quadriplegia Respiratory: monitor respiratory rate, adjust FIO2, CXR Cardiac: continue to monitor HR/BP Renal: F/U I&O, keep IV fluid, check electrolytes Infectious Disease: continue antibiotics Gastrointestinal: continue feedings/current rate Endocrine: monitor blood sugar, check TSH Hematologic: transfuse if hgb<8.5 Neurologic: PRN Morphine, keep patient comfortable Prophylaxis: Protonix Time Spent (Minutes): 30 Notes Reviewed: 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 with: nurses, consultants, dependency case managerhuman resources manager - Objective Last 24 Hour Vital Signs Date Time Temp Pulse Resp B/P (MAP) Pulse Ox O2 Delivery O2 Flow Rate FiO2 03/04/19 15:56 98.2 80 16 113/74 (87) 100 03/04/19 15:52 Mechanical Ventilator 03/04/19 15:43 40 03/04/19 15:28 87 16 40 03/04/19 13:39 83 15 40 03/04/19 12:00 Mechanical Ventilator 03/04/19 12:00 85 03/04/19 12:00 40 03/04/19 12:00 98.0 90 16 110/68 (82) 98 03/04/19 10:54 79 14 40 03/04/19 10:11 88 14 99 Mechanical Ventilator 40 03/04/19 10:01 85 15 100 Mechanical Ventilator 40 03/04/19 10:01 40 03/04/19 08:49 78 14 40 03/04/19 08:00 97.7 84 16 118/75 (89) 99 03/04/19 08:00 87 03/04/19 07:44 Mechanical Ventilator 03/04/19 07:43 40 03/04/19 07:35 79 14 40 03/04/19 05:29 88 16 40 03/04/19 04:00 98.9 80 14 108/60 (76) 98 03/04/19 04:00 Mechanical Ventilator 03/04/19 04:00 40 03/04/19 03:40 83 03/04/19 03:15 86 16 40 4/5/19 01:24 90 16 40 03/04/19 00:00 81 03/04/19 00:00 99.1 80 14 104/71 (82) 100 03/04/19 00:00 Mechanical Ventilator 03/03/19 23:28 81 14 40 03/03/19 22:18 40 03/03/19 22:18 87 14 100 Mechanical Ventilator 40 03/03/19 22:08 81 14 100 Mechanical Ventilator 40 03/03/19 22:01 81 14 40 03/03/19 20:00 99.1 87 15 113/78 (90) 99 03/03/19 20:00 Mechanical Ventilator 03/03/19 20:00 40 03/03/19 19:03 87 03/03/19 18:53 90 15 40 03/03/19 17:16 92 20 40 Status: awake Condition: critical Lungs: chest wall tender Heart: HR/BP unstable Abdomen: non-tender, active bowel sounds Extremities: no C/C/E, edema Decubiti: stage Accucheck: 171 Critical Care - Subjective ROS Limited/Unobtainable: No Condition: critical EKG Rhythm: Sinus Rhythm FI02: 40 Vent Support Breath Rate: 14 Vent Support Mode: AC Vent Tidal Volume: 450 Sputum Amount: Large PEEP: 5.0 PIP: 31 Tube Feeding Amount: 50 I&O: Intake and Output 03/03/19 03/04/19 19:00 07:00 Intake Total 1260 ml 1980 ml Output Total 1400 ml Balance 1260 ml 580 ml Intake Free Water 160 ml 200 ml IV Total 600 ml 1180 ml Tube Feeding 500 ml 600 ml Output Urine Total 1400 ml # Bowel Movements 50 Labs: Laboratory Tests Test 03/04/19 03:50 White Blood Count 9.7 K/UL (4.8-10.8) Red Blood Count 3.41 M/UL (4.20-5.40) L Hemoglobin 8.9 G/DL (12.0-16.0) L Hematocrit 29.0 % (37.0-47.0) L Mean Corpuscular Volume 85 FL (80-99) Mean Corpuscular Hemoglobin 26.2 PG (27.0-31.0) L Mean Corpuscular Hemoglobin Concent 30.8 G/DL (32.0-36.0) L Red Cell Distribution Width 16.9 % (11.6-14.8) H Platelet Count 362 K/UL (150-450) Mean Platelet Volume 5.4 FL (6.5-10.1) L Neutrophils (%) (Auto) 75.0 % (45.0-75.0) Lymphocytes (%) (Auto) 19.0 % (20.0-45.0) L Monocytes (%) (Auto) 3.5 % (1.0-10.0) Eosinophils (%) (Auto) 2.0 % (0.0-3.0) Basophils (%) (Auto) 0.6 % (0.0-2.0) Sodium Level 138 MMOL/L (136-145) Potassium Level 4.8 MMOL/L (3.5-5.1) Chloride Level 101 MMOL/L (98-107) Carbon Dioxide Level 33 MMOL/L (21-32) H Anion Gap 4 mmol/L (5-15) L Blood Urea Nitrogen 14 mg/dL (7-18) Creatinine 0.4 MG/DL (0.55-1.30) L Estimat Glomerular Filtration Rate > 60 mL/min (>60) Glucose Level 142 MG/DL (74-106) H Calcium Level 11.3 MG/DL (8.5-10.1) H Rula Corrigan MD Mar 04, 2019 16:01
--- NOTE | 2019-03-04 17:55 | General Progress Note ---
Assessment/Plan Assessment/Plan Assessment and Recs # Anemia of chronic disease due to underlying chronic medical issues, multifactorial --> Anemia workup has been ordered/reviewed and c/w acd --> No evidence of hemolysis is noted, peripheral smear has been reviewed. --> Hgb goal >7. Transfuse prn. --> Epogen or iron at this time is not indicated --> Medications have been reviewed --> evaluate with Gi team prn --> hgb trend 8.1-->8.2-->9.2-->9.6-->9 # Leukocytosis/Elevated white blood cell count, unspecified likely related to underlying stress reaction, smoking v more likely infection --> have reviewed peripheral smear and bandemia/neutrophilia noted --> continue antibiotics if they have been started by ID team --> monitor for resolution on cxr for pna --> trend wbc 18k-->12.5k-->11k-->13k-->9 # Thrombocytosis again similar to above --> likely related to infection, monitor for resolution # Transaminitis/elevated lffts --> on abx # Chronic respiratory failure s/p trach/vent # Dysphagia is s/p PEG # Anxiety # Schizoaffective disorder # half-way resident # MDR organisms --> on abx as per id The timing of this note does not necessarily reflect the time of the patient was seen. Greatly appreciate consultation! Subjective Constitutional: Denies: no symptoms, chills, diaphoresis, fever, malaise, weakness, other HEENT: Denies: no symptoms, eye pain, blurred vision, tearing, double vision, ear pain, ear discharge, nose pain, nose congestion, throat pain, throat swelling, mouth pain, mouth swelling, other Respiratory: Denies: no symptoms, cough, orthopnea, shortness of breath, SOB with excertion, SOB at rest, sputum, stridor, wheezing, other Neurologic/Psychiatric: Denies: no symptoms, anxiety, depressed, emotional problems, headache, numbness, paresthesia, pre-existing deficit, seizure, tingling, tremors, weakness, other Allergies: Coded Allergies: DIPHENHYDRAMINE (Verified Allergy, Unknown, 02/24/19) FLUPHENAZINE (Verified Allergy, Unknown, 02/24/19) Subjective 02/25: no events, on abx, is in the sdu, will be getting prbc transfusion today 02/27: no f/c, hgb remains low, hgb 8.1, remains in the sdu, on vent 02/28: open eyes and more following commands, on vent 03/01: leaking rectal tube but no bleeding, cbc reviewed, on broad spectrum abx mdr 03/02: on abx, vent=+, nonverbal, gtube functioning in place 03/03: continuing broad spectrum abx, cxr imaging reviewed, cm notes reviewed 03/04: sleeping this am, without complaints on trach/vent Objective Last 24 Hour Vital Signs Date Time Temp Pulse Resp B/P (MAP) Pulse Ox O2 Delivery O2 Flow Rate FiO2 03/04/19 17:18 86 18 40 03/04/19 16:00 85 03/04/19 15:56 98.2 80 16 113/74 (87) 100 03/04/19 15:52 Mechanical Ventilator 03/04/19 15:43 40 03/04/19 15:28 87 16 40 03/04/19 13:39 83 15 40 03/04/19 12:00 Mechanical Ventilator 03/04/19 12:00 85 03/04/19 12:00 40 03/04/19 12:00 98.0 90 16 110/68 (82) 98 03/04/19 10:54 79 14 40 03/04/19 10:11 88 14 99 Mechanical Ventilator 40 03/04/19 10:01 85 15 100 Mechanical Ventilator 40 03/04/19 10:01 40 03/04/19 08:49 78 14 40 03/04/19 08:00 97.7 84 16 118/75 (89) 99 03/04/19 08:00 87 03/04/19 07:44 Mechanical Ventilator 03/04/19 07:43 40 03/04/19 07:35 79 14 40 03/04/19 05:29 88 16 40 03/04/19 04:00 98.9 80 14 108/60 (76) 98 03/04/19 04:00 Mechanical Ventilator 03/04/19 04:00 40 03/04/19 03:40 83 03/04/19 03:15 86 16 40 03/04/19 01:24 90 16 40 03/04/19 00:00 81 03/04/19 00:00 99.1 80 14 104/71 (82) 100 03/04/19 00:00 Mechanical Ventilator 03/03/19 23:28 81 14 40 03/03/19 22:18 40 03/03/19 22:18 87 14 100 Mechanical Ventilator 40 03/03/19 22:08 81 14 100 Mechanical Ventilator 40 03/03/19 22:01 81 14 40 03/03/19 20:00 99.1 87 15 113/78 (90) 99 03/03/19 20:00 Mechanical Ventilator 03/03/19 20:00 40 03/03/19 19:03 87 03/03/19 18:53 90 15 40 Intake and Output 03/03/19 03/04/19 19:00 07:00 Intake Total 1260 ml 1980 ml Output Total 1400 ml Balance 1260 ml 580 ml Intake Free Water 160 ml 200 ml IV Total 600 ml 1180 ml Tube Feeding 500 ml 600 ml Output Urine Total 1400 ml # Bowel Movements 50 Laboratory Tests 03/04/19 03:50: White Blood Count 9.7, Red Blood Count 3.41L, Hemoglobin 8.9L, Hematocrit 29.0L , Mean Corpuscular Volume 85, Mean Corpuscular Hemoglobin 26.2L, Mean Corpuscular Hemoglobin Concent 30.8L, Red Cell Distribution Width 16.9H, Platelet Count 362, Mean Platelet Volume 5.4L, Neutrophils (%) (Auto) 75.0, Lymphocytes (%) (Auto) 19.0L, Monocytes (%) (Auto) 3.5, Eosinophils (%) (Auto) 2.0, Basophils (%) (Auto) 0.6, Sodium Level 138, Potassium Level 4.8, Chloride Level 101, Carbon Dioxide Level 33H, Anion Gap 4L, Blood Urea Nitrogen 14, Creatinine 0.4L, Estimat Glomerular Filtration Rate > 60, Glucose Level 142H, Calcium Level 11.3H Height (Feet): 5 Height (Inches): 5.00 Weight (Pounds): 180 Objective Sp02 EP Interpretation: reviewed, normal General Appearance: alert, Chronically Ill Head: normocephalic, atraumatic Eyes: bilateral eye normal inspection, bilateral eye PERRL, bilateral eye EOMI ENT: moist mucus membranes Neck: supple, ++ tracheotomy Respiratory: rales, rhonchi, wheezing, expiration, other - Thick secretions Cardiovascular: tachycardia, edema Gastrointestinal: soft, decreased bowel sounds ++ peg Musculoskeletal: swelling Neurologic: responsive, live out nanny III-XII nml as tested, motor weakness - R hemiparesis, flaccid L upper arm, able to move L foot, sensory deficit Tod Bradley MD Mar 04, 2019 17:55
--- NOTE | 2019-03-04 19:14 | NUR ---
HAND-OFF: Report given to DB Weaver. Stable condition.
--- NOTE | 2019-03-04 19:15 | NUR ---
NURSE NOTES: Received report from Vianey RN, pt. in bed awake with eyes open- non-verbal, wool classer on, no signs or symptoms of acute cardiac or respiratory distress noted, bed in lowest position and call light within easy reach, bed alarm on, side rails up x's3 and safety brakes engaged, pt. appears to be tolerating current vent settings well- at AC 14, TV 450, fio2 @ 40% and peep of 5- no distress noted, G tube running 2 Richy at 50cc/hr- no residual noted, rectal tube and Cormier both intact and draining to gravity, Dressings dry and intact, RFA 22G IV intact and patent running D5 1/2 NS at 100cc/hr, date measures continued, will continue with plan of care.
--- NOTE | 2019-03-04 19:58 | NUR ---
RESPIRATORY NOTE: PT RECEIVED STABLE ON CURRENT CMV ORDERS: AC 14, 450, 40%, +5. ALARMS ON AND AUDIBLE. VENT. CIRCUIT SECURE AND OUT OF THE WAY. NO S/S OF RESPIRATORY DISTRESS NOTED AT THIS TIME. WILL CONTINUE TO MONITOR.
[2019-03-04 20:00] VITALS: BP 112/67
--- NOTE | 2019-03-04 23:35 | NUR ---
NURSE NOTES: per DR. Bruce to put an order in for pt. to be discharged back to [facility] and put pt. is colonized- orders carried out.
[2019-03-05] VITALS: BP 126/80
--- NOTE | 2019-03-05 03:30 | Progress Note ---
DATE: 03/04/2019 SUBJECTIVE: The patient is awake, alert, afebrile, hemodynamically stable. Her condition has markedly improved. PHYSICAL EXAMINATION: VITAL SIGNS: Blood pressure 112/67, pulse 75, respirations 16, and temperature 97.9. HEENT: Eyes were normal. ENT, mucous membranes were moist and intact. NECK: Supple with no JVD without lymph nodes. Tracheostomy site is clean. LUNGS: Clear without rhonchi, rales, or wheezing. Secretions are small, thin, and robison. HEART: Normal sounds with regular beats. There are no S3, S4, or pericardial rub. ABDOMEN: Soft and nontender with normal bowel sounds. Gastrostomy site is clean. EXTREMITIES: Warm without cyanosis, clubbing, or edema. LABORATORY AND DIAGNOSTIC DATA: Laboratory data, hemoglobin is 8.9, hematocrit 29.2 with MCV of 85, WBC of 9.7, and platelets is 362. Her BUN and creatinine is 14 and 0.4 respectively. Her sodium is 138, potassium 4.8, chloride 101, CO2 is 23, glucose is 142, calcium is 11.3. SGOT, SGPT, and alkaline phosphatase are normal. Albumin is 2.2 and total protein is 7.4. IMPRESSION: The patient is now in stable condition. Chest x-ray revealed consolidation of the left lung and pleural effusion from 03/04/2019, however, clinically the patient is substantially improved. She will continue with current antibiotic that includes minocycline 100 mg q.12 h orally and mupirocin to apply to the wound three times daily. The patient is stable enough to return home and to continue IV antibiotic in the extended care facility subacute unit. Bassem Bruce M.D. DR: SHIRA JOB#: [id number] CC:
[2019-03-05 04:00] VITALS: BP 129/83
--- NOTE | 2019-03-05 05:00 | NUR ---
RESPIRATORY NOTE: PT REMAINED STABLE ON CMV WITH CURRENT SETTINGS. SX PRN WITH NO ADVERSE REACTION. VENT CIRCUIT SECURE AND OUT OF THE WAY. NO S/S OF RESPIRATORY DISTRESS NOTED AT THIS TIME.
--- NOTE | 2019-03-05 06:33 | NUR ---
RESPIRATORY NOTE: Received pt on trach cuffed, Portex 7 with the current vent setting: AC 14-450ml-40% peep 5, pt is tolerating well. Amish rhonchi B/S heard upon auscultation, sxn moderate amt thick/thin clear white secretions without incidents. Oral care done. No SOB or resp distress noted at this time. Alarms are set and audible, vent is plugged into the red outlet, ambu bag and spare trach kit are at bedside. Will continue to monitor.
--- NOTE | 2019-03-05 07:18 | NUR ---
HAND-OFF: Report given to Desiree ACE, pt. remains stable and no signs of distress noted- aware to f/u on discharge.
--- NOTE | 2019-03-05 07:20 | NUR ---
NURSE NOTES: Received pt from DB Weaver in stable condition- no cardiopulmonary distress noted. Pt is awake, non-verbal, trach to vent Portex 7 AC 14 TV 450 FiO2 40% Peep 5. F/C noted draining yellow urine. R FA 22g IV noted and patent. Rectal tube noted draining stool. GT noted running Two Richy 2.0 at 50cc/hr. Skin alterations noted. Bed is in lowest position, alarm on, side rails up x2, call light within reach. Will continue to monitor pt.
[2019-03-05 08:00] VITALS: BP 136/78
[2019-03-05] MEDS: Heparin 5000 units/ml inj SUBQ SCH (08:13)
[2019-03-05] MEDS: Minocycline HCl 50mg cap ORAL SCH (08:14)
[2019-03-05] MEDS: Pantoprazole Inj IVP SCH (08:14)
[2019-03-05] MEDS: Colistin for inhalation INH SCH (09:27)
--- NOTE | 2019-03-05 09:38 | NUR ---
DISCHARGE DISPOSITION: PLEASE READ 03/05/2019 PATIENT TO BE DISCHARGE TO [facility] ROOM 27 T: [phone]>> CALL [facility] FOR REPORT [facility] ETA 1330 ACLS W/ [facility] Addendum: 03/05/19 at 0958 by Rosemary Garg CM transfer sheet provided to maria a
[2019-03-05] MEDS: D5 1/2NS 1,000 ML IV SCH (10:26)
--- NOTE | 2019-03-05 10:35 | Pulmonolgy Critical Care Note ---
Critical Care - Asmt/Plan Problems: (1) Acute and chronic respiratory failure (2) MDRO (multiple drug resistant organisms) resistance (3) Pneumonia involving left lung (4) Sepsis (5) Severe anemia (6) UTI (urinary tract infection) (7) Feeding by G-tube (8) Functional quadriplegia Respiratory: monitor respiratory rate, adjust FIO2, CXR Cardiac: continue to monitor HR/BP Renal: F/U I&O, keep IV fluid Infectious Disease: check cultures Gastrointestinal: continue feedings/current rate Endocrine: monitor blood sugar, check TSH Hematologic: transfuse if hgb<8.5 Neurologic: PRN Ativan, keep patient comfortable Affect: PRN ativan Prophylaxis: Protonix Notes Reviewed: renal Discussed with: nurses, consultants, spring encasergrants manager - Objective Last 24 Hour Vital Signs Date Time Temp Pulse Resp B/P (MAP) Pulse Ox O2 Delivery O2 Flow Rate FiO2 03/05/19 09:35 85 16 98 Mechanical Ventilator 40 03/05/19 09:27 88 16 98 Mechanical Ventilator 40 03/05/19 09:24 81 17 40 03/05/19 08:00 Mechanical Ventilator 03/05/19 08:00 84 03/05/19 08:00 40 03/05/19 08:00 97.7 83 16 136/78 (97) 98 03/05/19 06:33 89 18 40 03/05/19 05:00 90 15 40 03/05/19 04:00 Mechanical Ventilator 03/05/19 04:00 84 03/05/19 04:00 97.7 82 16 129/83 (98) 98 03/05/19 04:00 40 03/05/19 03:13 90 14 40 03/05/19 01:05 77 14 40 03/05/19 00:00 40 03/05/19 00:00 98.1 83 15 126/80 (95) 99 03/05/19 00:00 Mechanical Ventilator 03/05/19 00:00 81 03/04/19 23:15 83 16 40 03/04/19 21:31 77 14 100 Mechanical Ventilator 40 03/04/19 21:20 40 03/04/19 21:20 76 15 40 03/04/19 21:20 76 15 100 Mechanical Ventilator 40 03/04/19 20:00 97.9 82 16 112/67 (82) 99 03/04/19 20:00 Mechanical Ventilator 03/04/19 20:00 40 03/04/19 20:00 85 03/04/19 18:58 89 15 40 03/04/19 17:18 86 18 40 03/04/19 16:00 85 03/04/19 15:56 98.2 80 16 113/74 (87) 100 03/04/19 15:52 Mechanical Ventilator 03/04/19 15:43 40 03/04/19 15:28 87 16 40 03/04/19 13:39 83 15 40 03/04/19 12:00 Mechanical Ventilator 03/04/19 12:00 85 03/04/19 12:00 40 03/04/19 12:00 98.0 90 16 110/68 (82) 98 03/04/19 10:54 79 14 40 Status: awake Condition: critical Neck: full ROM Heart: HR/BP stable, regular Abdomen: non-tender Extremities: no C/C/E, edema Accucheck: 171 Critical Care - Subjective Condition: critical FI02: 40 Vent Support Breath Rate: 14 Vent Support Mode: AC Vent Tidal Volume: 450 Sputum Amount: Small PEEP: 5.0 PIP: 25 Tube Feeding Amount: 50 I&O: Intake and Output 03/04/19 03/05/19 18:59 06:59 Intake Total 1860 ml 1305 ml Output Total 1550 ml 1400 ml Balance 310 ml -95 ml Intake Free Water 260 ml 60 ml IV Total 1000 ml 645 ml Tube Feeding 600 ml 600 ml Output Urine Total 1500 ml 1400 ml Stool Total 50 ml Rula Corrigan MD Mar 05, 2019 10:35
[2019-03-05 12:00] VITALS: BP 114/60
--- NOTE | 2019-03-05 13:00 | Infectious Diseases Prog Note ---
Assessment/Plan Assessment/Plan Assessment: Sepsis 2ryt o Probable PNA and UTI -CXR: Diffuse opacity projected over the left hemithorax. Suspect pleural disease either pleural effusion or pleural thickening. Difficult to exclude underlying parenchymal disease. -sp cx MDR ABC (S minocycline, colistin, polymixin B) -u/a wbc 10-15, nit neg, leuk +3; ucx C. glabrata -influenza sc neg Afebrile Leukocytosis, SP -Cdiff neg Elevated LFTs chronic respiratory failure s/p trach/vent PEG anxiety schizoaffective disorder [place] [facility] resident Plan: -Cont INH Colistin and Minocycline #6/ for MDR ABC sp -02/28 SP IV Vancomycin and Zosyn #5 -02/24 SP Cefepime and LEvaquin x1 -f.u cx -Monitor CBC/CMP, temperatures -f/u legionella ag urince -PEG/Trach care Will continue to follow along with you. Subjective Allergies: Coded Allergies: DIPHENHYDRAMINE (Verified Allergy, Unknown, 02/24/19) FLUPHENAZINE (Verified Allergy, Unknown, 02/24/19) Subjective afebrile no leuckotyosis cdiff neg Objective Vital Signs Last 24 Hour Vital Signs Date Time Temp Pulse Resp B/P (MAP) Pulse Ox O2 Delivery O2 Flow Rate FiO2 03/05/19 12:00 40 03/05/19 12:00 Mechanical Ventilator 03/05/19 10:31 86 17 40 03/05/19 09:35 85 16 98 Mechanical Ventilator 40 03/05/19 09:27 88 16 98 Mechanical Ventilator 40 03/05/19 09:24 81 17 40 03/05/19 08:00 Mechanical Ventilator 03/05/19 08:00 84 03/05/19 08:00 40 03/05/19 08:00 97.7 83 16 136/78 (97) 98 03/05/19 06:33 89 18 40 03/05/19 05:00 90 15 40 03/05/19 04:00 Mechanical Ventilator 03/05/19 04:00 84 03/05/19 04:00 97.7 82 16 129/83 (98) 98 03/05/19 04:00 40 03/05/19 03:13 90 14 40 03/05/19 01:05 77 14 40 03/05/19 00:00 40 03/05/19 00:00 98.1 83 15 126/80 (95) 99 03/05/19 00:00 Mechanical Ventilator 03/05/19 00:00 81 03/04/19 23:15 83 16 40 03/04/19 21:31 77 14 100 Mechanical Ventilator 40 03/04/19 21:20 40 03/04/19 21:20 76 15 40 03/04/19 21:20 76 15 100 Mechanical Ventilator 40 03/04/19 20:00 97.9 82 16 112/67 (82) 99 03/04/19 20:00 Mechanical Ventilator 03/04/19 20:00 40 03/04/19 20:00 85 03/04/19 18:58 89 15 40 03/04/19 17:18 86 18 40 03/04/19 16:00 85 03/04/19 15:56 98.2 80 16 113/74 (87) 100 03/04/19 15:52 Mechanical Ventilator 03/04/19 15:43 40 03/04/19 15:28 87 16 40 03/04/19 13:39 83 15 40 Height (Feet): 5 Height (Inches): 5.00 Weight (Pounds): 180 Objective General. NAD, On vent 45% HEENT: NCAT, MMM, PERRL, Trached Respiratory/Chest: Course B/L Cardiovascular/Chest: RR, S1, S2, Abdomen: normal bowel sounds, Not distended Current Medications Medications (Trade) Dose Ordered Sig/Lavon Route PRN Reason Start Time Stop Time Status Last Admin Dose Admin Colistimethate Sodium (Colistin *inhalation use only*) 150 mg Q12HRT INH 02/28/19 22:00 03/07/19 21:59 03/05/19 09:27 Dextrose/Sodium Chloride 1,000 ml @ 100 mls/hr Q10H IV 02/24/19 16:00 03/26/19 15:59 03/05/19 10:26 Heparin Sodium (Porcine) (Heparin 5000 units/ml) 5,000 units EVERY 12 HOURS SUBQ 02/24/19 21:00 03/26/19 20:59 03/05/19 08:13 Minocycline HCl (Minocin) 100 mg Q12HR ORAL 02/28/19 21:00 03/07/19 20:59 03/05/19 08:14 Mupirocin (Bactroban Oint) 1 applic THREE TIMES A DAY TOPIC 03/01/19 13:00 03/06/19 12:59 03/05/19 08:14 Pantoprazole (Protonix) 40 mg DAILY IVP 02/25/19 09:00 03/27/19 08:59 03/05/19 08:14 Renae Conteh M.D. Mar 05, 2019 13:00
--- NOTE | 2019-03-05 15:15 | NUR ---
HAND-OFF: Report given to Kat from [facility]. Pt d/c to [facility] in stable condition via stretcher with EMT personnel accompanied by RT. Pt removed off of monitoring and evaluation advisor. IV and rectal tube disconnected. F/C not removed per MD order. WCP taken and uploaded. Wrist band removed. Pt has no belongings.
[2019-03-05] MEDS ORDERED: Tubing IV Secondary IV ONE (15:19)
[2019-03-05] MEDS ORDERED: D5 1/2NS 1000ml IV ONE (15:19)
--- NOTE | 2019-03-05 15:45 | Surgery Progress Note ---
Surgery Progress Note Subjective Symptoms: other Objective Last 24 Hour Vital Signs Date Time Temp Pulse Resp B/P (MAP) Pulse Ox O2 Delivery O2 Flow Rate FiO2 03/05/19 12:43 87 14 40 03/05/19 12:00 85 03/05/19 12:00 40 03/05/19 12:00 Mechanical Ventilator 03/05/19 12:00 97.5 87 16 114/60 (78) 97 03/05/19 10:31 86 17 40 03/05/19 09:35 85 16 98 Mechanical Ventilator 40 03/05/19 09:27 88 16 98 Mechanical Ventilator 40 03/05/19 09:24 81 17 40 03/05/19 08:00 Mechanical Ventilator 03/05/19 08:00 84 03/05/19 08:00 40 03/05/19 08:00 97.7 83 16 136/78 (97) 98 03/05/19 06:33 89 18 40 03/05/19 05:00 90 15 40 03/05/19 04:00 Mechanical Ventilator 03/05/19 04:00 84 03/05/19 04:00 97.7 82 16 129/83 (98) 98 03/05/19 04:00 40 03/05/19 03:13 90 14 40 03/05/19 01:05 77 14 40 03/05/19 00:00 40 03/05/19 00:00 98.1 83 15 126/80 (95) 99 03/05/19 00:00 Mechanical Ventilator 03/05/19 00:00 81 03/04/19 23:15 83 16 40 03/04/19 21:31 77 14 100 Mechanical Ventilator 40 03/04/19 21:20 40 03/04/19 21:20 76 15 40 03/04/19 21:20 76 15 100 Mechanical Ventilator 40 03/04/19 20:00 97.9 82 16 112/67 (82) 99 03/04/19 20:00 Mechanical Ventilator 03/04/19 20:00 40 03/04/19 20:00 85 03/04/19 18:58 89 15 40 03/04/19 17:18 86 18 40 03/04/19 16:00 85 03/04/19 15:56 98.2 80 16 113/74 (87) 100 03/04/19 15:52 Mechanical Ventilator I&O Intake and Output 03/04/19 03/05/19 18:59 06:59 Intake Total 1860 ml 1305 ml Output Total 1550 ml 1400 ml Balance 310 ml -95 ml Intake Free Water 260 ml 60 ml IV Total 1000 ml 645 ml Tube Feeding 600 ml 600 ml Output Urine Total 1500 ml 1400 ml Stool Total 50 ml Dressing: saturated Wound: clean, other Drains: other Cardiovascular: RSR Respiratory: clear Abdomen: soft, present bowel sounds, non-distended Extremities: no tenderness, no cyanosis, other Plan Problems: (1) Decubitus skin ulcer Assessment & Plan: Pt presented on admission with unstageable wound L earlobe.Wound has 95% soft necrosis ,5% viable. (L)2.5cm x (W)0.7cm. Periwound earlobe extending into ear canal has darker than is normal skin tone. Full thickness sacral pressure injury with 10% slough otherwise wound is viable with measureable depth at coccyx. Pt flinches each time area is minimally palpated. ( L)2.5cm x (W)7.5cm x (D)0.4cm.Edges of wound macerated. Erythema periwound. Bilat heels firm and easily blanchable. Tx.PLan: Cleanse Sacral wound with Saline. Apply Therahoney .Apply Triad periwound.Cover with Optifoam drsg .Change daily and prn. Cleanse L ear with Saline. Apply Bactroban . Cover with Optifoam drsg .Change Daily and prn. Apply Cavilon to both heels .Cover each heel with Optifoam drsg. Change every 7 days and prn. Please maintain Foam Mold around L ear to reduce pressure from ear. Reposition at least every 2 hours or as tolerated. Off-load heels with Pillow. APM/SYLVIA mattress. (2) Functional quadriplegia (3) UTI (urinary tract infection) Levon Nunes Mar 05, 2019 15:45
--- NOTE | 2019-03-08 14:25 | Discharge Summary ---
Discharge Summary Discharge Summary _ DATE OF ADMISSION: 02/24/2019 DATE OF DISCHARGE: 619 DISCHARGED BY: Dr. Bruce REASON FOR ADMISSION: 68 years old female, resident of subacute facility, with past medical history of ventilator dependent respiratory failure, tracheostomy status, dysphagia, gastrostomy tube, hyperlipidemia, COPD, hypertension, was sent from the facility for evaluation. Apparently at the nursing facility , nursing staff could not feel pulses and started CPR. Patient woke up after few compression. Paramedics were summoned. Per paramedics, patient had a large amount of secretions from the tracheostomy. Patient usually was noncommunicative , but able to open her eyes. No CPR was needed by paramedics. Patient was assisted with ventilation via bag valve mask. Upon evaluation pulse oximetry was 90% on 40% of FiO2. Patient was with low- grade fever 99.6. Chest x-ray revealed diffuse opacity over the left hemithorax, suspecting pleural disease pleural effusion or pleural thickening. Difficult to exclude underlying parenchymal disease. Tracheostomy noted. Arterial duplex bilateral lower extremity revealed calcification throughout the superficial femoral and popliteal arteries bilaterally, no evidence of stenosis or occlusion. Right leg Doppler of tibial artery revealed findings consistent with minimal ischemia at rest. Laboratory workup revealed leukocytosis WBC 17.9, hemoglobin 9.2, hematocrit 30.2, platelet count 613. ABG was stable on current ventilator settings. BUN 27, creatinine 0.4. Glucose 173. AST 45, ALT 85. Next albumin 2.2 9. Troponin negative. Urinalysis revealed pyuria and few bacteria. Patient admitted to direct observational unit for further management. CONSULTANTS: pulmonary Dr. Corrigan ID specialist Dr. Conteh solder cream maker/oncologist Dr. Bradley surgery [facility] COURSE: Patient was admitted and started on gentle IV hydration and broad-spectrum antibiotic. Patient was follow-up with chest x-ray. Ventilator settings titrated as needed. Pulmonary toilet provided. Antibiotic provided as per ID specialist recommendation. Blood culture were negative. Urine culture was negative. Rapid influenza screen test was negative. Sputum culture revealed Acinetobacter complex MDR. Repeated urine culture revealed Yael glabrata. A Stool for C. difficile was negative. Urine Legionella antigen was negative. Leukocytosis finally resolved by 03/04. No fevers. ID specialist recommended continue with Colistin inhalation and minocycline for MDR Acinetobacter sputum in the facility to complete the course. Patient status post treatment with IV antibiotics. Surgeon followed for wound management of present on admission sacral and the left earlobe wounds. Continue wound care as recommended by surgeon at the facility. Inspector Plating followed. Hemoglobin and hematocrit were closely monitored with goal to keep hemoglobin above 7. Stool for occult blood was negative. Prior to discharge hemoglobin 8.9, hematocrit 29. CEA within normal limits. Anemia workup was consistent with anemia of chronic disease with stable B12 and folate level. Per solder cream maker, no evidence of hemolysis. Epogen or iron at that time were not particularly indicated. Thrombocytosis was likely related to infection and resolved, prior to discharge platelet count within normal range. Transaminitis resolved. Abdominal ultrasound revealed cholelithiasis, but no evidence of dilated bile ducts. Borderline hepatomegaly noted. Strict aspiration precautions were maintained. Patient was able to tolerate tube feeding. SNF medication were continued. Patient clinically stabilized. Leukocytosis resolved. Follow-up chest x-ray still revealed left lung consolidation. However clinically patient improved significantly and was ready for transfer back to subacute facility to complete antibiotic , continue with wound care and further management. FINAL DIAGNOSES: Sepsis secondary to probable pneumonia and UTI Pneumonia due to Acinetobacter MDR, involving left lung Fungal UTI Acute and chronic ( ventilator dependent) respiratory failure Tracheostomy status Dysphasia, G-tube feeding Schizoaffective disorder Severe anemia Functional quadriplegia Sacral decubitus ulcer, un-stageable, present on admission Left earlobe pressure ulcer, un-stageable, present on admission DISCHARGE MEDICATIONS: See Medication Reconciliation list. DISCHARGE INSTRUCTIONS: Patient was discharged to the nursing home facility. Follow up with medical doctor at the facility. I have been assigned to dictate discharge summary for this account. I was not involved in the patient's management. April Singletary NP Mar 08, 2019 14:25
== END 2019-03-05 15:20 | DRG 720 ==
LOC: EDBD 08:27 → EMR 09:10 → EDBEDREQ 12:05 → ICU 12:30 → 2W 02-25 06:45
PROC: 5A1955Z Respiratory Ventilation, Greater than 96 Consecutive Hours (ICD-10-PCS; principal; 2019-02-24)
DX: A41.89 Other specified sepsis (principal); J96.20 Acute and chronic respiratory failure, unspecified whether with hypoxia or hypercapnia; Z99.11 Dependence on respirator [ventilator] status; J18.9 Pneumonia, unspecified organism; R53.2 Functional quadriplegia; Z93.0 Tracheostomy status; L89.159 Pressure ulcer of sacral region, unspecified stage; Z93.1 Gastrostomy status; N39.0 Urinary tract infection, site not specified; F41.9 Anxiety disorder, unspecified; D64.9 Anemia, unspecified; R94.5 Abnormal results of liver function studies; D47.3 Essential (hemorrhagic) thrombocythemia; M24.412 Recurrent dislocation, left shoulder; F25.0 Schizoaffective disorder, bipolar type; L89.810 Pressure ulcer of head, unstageable
CPT/HCPCS: 36415; 36600; 71045; 76700; 80048; 80053; 80202; 81003; 82164; 82270; 82378; 82550; 82607; 82728; 82746; 82803; 82962; 83036; 83540; 83550; 83605; 83615; 83735; 83880; 83970; 84100; 84484; 85007; 85025; 85044; 85060; 85610; 85651; 85730; 86140; 86710; 86850; 86900; 86901; 86920; 87040; 87070; 87081; 87086; 87181; 87205; 87324; 93005; 93925; 94002; 94003; 94640; 94664; 96361; 96365; 96367; 96368; 96375; 99285

== ENCOUNTER 2019-03-12 12:01 | Inpatient (IN) | payer OTHER ==
[~2019-03-12] VITALS: Ht 162.6 cm; Wt 59.0 kg
[~2019-03-12 12:01] MED LIST: COLACE100 MG GT; FAMOTIDINE20 MG GT; KLONOPIN0.5 MG ORAL; LIPITOR10 MG GT; LOVENOX10 M4 SUBQ; MULTIVITAMINS1 EAC2 GT; NORVASC5 MG GT; TYLENOL325 MG GT; VITAMIN C500 M1 GT; ZINC SULFATE220 M1 GT
[2019-03-12] MEDS ORDERED: HEPARIN SO5000 UNIT2 SUBQ (12:06)
--- NOTE | 2019-03-12 12:27 | Emergency Room Report ---
History of Present Illness General Chief Complaint: General Complaint Source: Medical Record, EMS Present Illness HPI Patient presents from nursing facility with reports of worsening pleural effusion Patient herself is nonverbal has a tracheostomy and is vent dependent patient appears chronically debilitated with proptosis There was no reports of vomiting or diarrhea history of present illness is significantly limited Recent imaging has shown worsening findings and therefore patient was sent to the emergency room Allergies: Coded Allergies: DIPHENHYDRAMINE (Verified Allergy, Unknown, 02/24/19) FLUPHENAZINE (Verified Allergy, Unknown, 02/24/19) Patient History Past Medical History: see triage record Pertinent Family History: none Reviewed Nursing Documentation: PMH: Agreed; PSxH: Agreed Nursing Documentation-PMH Past Medical History: No History, Except For Hx Hypertension: Yes - Hyperlipidemia Review of Systems All Other Systems: limited - Other than the ones mentioned in the history of present illness all others are reviewed however they do stay limited due to the patient's mental status Physical Exam Vital Signs Date Time Temp Pulse Resp B/P (MAP) Pulse Ox O2 Delivery O2 Flow Rate FiO2 03/12/19 12:02 97.9 87 15 122/78 99 Mechanical Ventilator 5.0 Sp02 EP Interpretation: reviewed, normal General Appearance: no apparent distress Head: normocephalic, atraumatic Eyes: bilateral eye PERRL, bilateral eye other - Proptosis ENT: normal pharynx, no angioedema Neck: supple, tracheotomy Respiratory: no retraction, no accessory muscle use, other - Decreased sounds left lower lobe crackles bilterally Cardiovascular #1: regular rate, rhythm Gastrointestinal: non tender, soft Musculoskeletal: other - Patient appears to be quadriplegic Neurologic: responsive - Minimally to physical stimuli blinking Skin: other Lymphatic: no adenopathy Medical Decision Making Diagnostic Impression: Primary Impression: Pleural effusion Additional Impressions: Feeding by G-tube Chronic respiratory failure ER Course Patient is a fairly complex patient with multiple differential to consideration including but not limited to cardiac cardiopulmonary and vascular emergencies Patient's x-ray does reveal left-sided effusion Patient will have further inpatient care and consultation regarding possible thoracentesis and patient admitted for further care Labs Test 03/12/19 12:20 03/13/19 04:00 White Blood Count 8.5 K/UL (4.8-10.8) 6.2 K/UL (4.8-10.8) Red Blood Count 3.61 M/UL (4.20-5.40) 3.59 M/UL (4.20-5.40) Hemoglobin 9.5 G/DL (12.0-16.0) 9.7 G/DL (12.0-16.0) Hematocrit 32.0 % (37.0-47.0) 31.6 % (37.0-47.0) Mean Corpuscular Volume 89 FL (80-99) 88 FL (80-99) Mean Corpuscular Hemoglobin 26.4 PG (27.0-31.0) 27.0 PG (27.0-31.0) Mean Corpuscular Hemoglobin Concent 29.7 G/DL (32.0-36.0) 30.6 G/DL (32.0-36.0) Red Cell Distribution Width 19.6 % (11.6-14.8) 19.8 % (11.6-14.8) Platelet Count 503 K/UL (150-450) 432 K/UL (150-450) Mean Platelet Volume 6.3 FL (6.5-10.1) 5.8 FL (6.5-10.1) Neutrophils (%) (Auto) 74.6 % (45.0-75.0) 62.0 % (45.0-75.0) Lymphocytes (%) (Auto) 19.1 % (20.0-45.0) 28.4 % (20.0-45.0) Monocytes (%) (Auto) 3.7 % (1.0-10.0) 4.6 % (1.0-10.0) Eosinophils (%) (Auto) 1.7 % (0.0-3.0) 3.7 % (0.0-3.0) Basophils (%) (Auto) 0.9 % (0.0-2.0) 1.4 % (0.0-2.0) Prothrombin Time 10.9 SEC (9.30-11.50) Prothromb Time International Ratio 1.0 (0.9-1.1) Activated Partial Thromboplast Time 24 SEC (23-33) Sodium Level 141 MMOL/L (136-145) 134 MMOL/L (136-145) Potassium Level 4.3 MMOL/L (3.5-5.1) 3.7 MMOL/L (3.5-5.1) Chloride Level 101 MMOL/L (98-107) 103 MMOL/L (98-107) Carbon Dioxide Level 35 MMOL/L (21-32) 32 MMOL/L (21-32) Anion Gap 5 mmol/L (5-15) -23 mmol/L (5-15) Blood Urea Nitrogen 25 mg/dL (7-18) 20 mg/dL (7-18) Creatinine 0.3 MG/DL (0.55-1.30) 0.3 MG/DL (0.55-1.30) Estimat Glomerular Filtration Rate > 60 mL/min (>60) > 60 mL/min (>60) Glucose Level 129 MG/DL (74-106) 124 MG/DL (74-106) Calcium Level 11.1 MG/DL (8.5-10.1) 11.5 MG/DL (8.5-10.1) Total Bilirubin 0.2 MG/DL (0.2-1.0) Aspartate Amino Transf (AST/SGOT) 20 U/L (15-37) Alanine Aminotransferase (ALT/SGPT) 39 U/L (12-78) Alkaline Phosphatase 110 U/L (46-116) Total Creatine Kinase 61 U/L (26-308) Creatine Kinase MB 1.7 NG/ML (0.0-3.6) Creatine Kinase MB Relative Index 2.7 Troponin I 0.009 ng/mL (0.000-0.056) Pro-B-Type Natriuretic Peptide 34 pg/mL (0-125) Total Protein 7.6 G/DL (6.4-8.2) Albumin 2.7 G/DL (3.4-5.0) 2.6 G/DL (3.4-5.0) Globulin 4.9 g/dL Albumin/Globulin Ratio 0.6 (1.0-2.7) Lipase 226 U/L (73-393) Phosphorus Level 2.4 MG/DL (2.5-4.9) Rhythm Strip Diag. Results EP Interpretation: yes Rate: 70 Rhythm: NSR, no PVC's, no ectopy Chest X-Ray Diagnostic Results Chest X-Ray Diagnostic Results : Chest X-Ray Ordered: Yes # of Views/Limited/Complete: 1 View Indication: Shortness of Breath EP Interpretation: Yes Interpretation: no pneumothorax, other - Left-sided effusion, borderline cardiomegaly Impression: Other - Left-sided effusion Electronically Signed by: Aure Sherman DO Last Vital Signs Date Time Temp Pulse Resp B/P (MAP) Pulse Ox O2 Delivery O2 Flow Rate FiO2 03/12/19 12:02 97.9 87 15 122/78 99 Mechanical Ventilator 5.0 Status: improved Disposition: ADMITTED INPATIENT Condition: Serious Aure Sherman DO Mar 12, 2019 12:27
[2019-03-12 12:44] LABS: ANION GAP 5 mmol/L (5-15); BLOOD UREA NITROGEN 25 mg/dL (7-18); CALCIUM 11.1 MG/DL (8.5-10.1); CARBON DIOXIDE 35 MMOL/L (21-32); CHLORIDE 101 MMOL/L (98-107); CREATININE 0.3 MG/DL (0.55-1.30); POTASSIUM 4.3 MMOL/L (3.5-5.1); SODIUM 141 MMOL/L (136-145)
[2019-03-12 12:59] LABS: BASOPHILS % (AUTO) 0.9 % (0.0-2.0); EOSINOPHILS % (AUTO) 1.7 % (0.0-3.0); HEMOGLOBIN 9.5 G/DL (12.0-16.0); LYMPHOCYTES % (AUTO) 19.1 % (20.0-45.0); MEAN CORPUSCULAR VOLUME 89 FL (80-99); MONOCYTES % (AUTO) 3.7 % (1.0-10.0); NEUTROPHILS % (AUTO) 74.6 % (45.0-75.0); PLATELET COUNT 503 K/UL (150-450); RED BLOOD COUNT 3.61 M/UL (4.20-5.40); RED CELL DISTRIBUTION WIDTH 19.6 % (11.6-14.8); WHITE BLOOD COUNT 8.5 K/UL (4.8-10.8)
[2019-03-12 13:10] VITALS: BP 122/78
--- NOTE | 2019-03-12 13:10 | NUR ---
ED Nurse Note: brought by ambulance from [facility] due to abnormal result on chest x-ray. pt has flat affect, with tracheostomy tube connected to mechanical ventilator. noted to have pressure wound on left and right ear and on the coccyx area. pt incomprehensive, pt noted to have g tube. will continue to monitor.
[2019-03-12 13:13] LABS: ALANINE AMINOTRANSFERASE 39 U/L (12-78); ALBUMIN 2.7 G/DL (3.4-5.0); ALBUMIN/GLOBULIN RATIO 0.6 (1.0-2.7); ALKALINE PHOSPHATASE 110 U/L (46-116); ASPARTATE AMINO TRANSFERASE 20 U/L (15-37); BILIRUBIN,TOTAL 0.2 MG/DL (0.2-1.0); CKMB 1.7 NG/ML (0.0-3.6); CREATINE KINASE 61 U/L (26-308)
[2019-03-12 14:11] VITALS: BP 93/53
--- NOTE | 2019-03-12 15:30 | NUR ---
ED Nurse Note: pt was admitted to the hospital. report given to bhavana matamoros. pt transfered to sdu accompanied by respiratory therapist attached to [facility]. pt vs stable upon transport
[2019-03-12] MEDS ORDERED: Tubing IV Secondary IV ONE ×2 (15:36)
[2019-03-12] MEDS ORDERED: D5W 275ml ONE (15:36)
[2019-03-12 16:00] VITALS: BP 93/55
[2019-03-12] MEDS ORDERED: Albuterol/Ipratropium 3ml neb HHN PRN (17:00)
[2019-03-12] MEDS ORDERED: Mylanta II UD 30ml ORAL PRN (17:00)
[2019-03-12] MEDS ORDERED: Nitroglycerin Subl 0.4mg tab SL PRN (17:00)
[2019-03-12] MEDS ORDERED: Promethazine/Codeine 5ml UD ORAL PRN (17:00)
[2019-03-12] MEDS ORDERED: Miralax 17gm pkt ORAL PRN (17:00)
--- NOTE | 2019-03-12 17:20 | NUR ---
NURSE NOTES: Received report from DB Reed. Patient arrived to unit via gurney in stable condition. No s/sx of SOB, breathing is even and unlabored. Vent settings are as ordered. Observed no presence of pain or discomfort at this time. Skin assessment initiated, noted sacral pressure injury stage 3, bilateral ears pressure injury stage 3 - cleanse wounds with normal saline, pat dry, applied barrier cream, covered with optifoam. Entered wound care orders. Bed is in lowest position, brakes engaged. Call light is kept within easy reach. Will continue to monitor patient.
[2019-03-12 18:00] VITALS: BP 100/67
[2019-03-12] MEDS ORDERED: Cefepime HCl 1 GM in D5W 55 ML IV SCH (18:00)
--- NOTE | 2019-03-12 19:13 | History & Physical ---
History and Physical History & Physicial Last 24 Hour Vital Signs Date Time Temp Pulse Resp B/P (MAP) Pulse Ox O2 Delivery O2 Flow Rate FiO2 03/12/19 18:57 73 14 40 03/12/19 17:15 68 14 40 03/12/19 16:23 Mechanical Ventilator 03/12/19 15:30 98.9 80 14 93/53 100 Mechanical Ventilator 40.0 40 03/12/19 14:55 80 14 40 03/12/19 14:16 40 03/12/19 14:11 98.9 80 14 93/53 100 Mechanical Ventilator 03/12/19 13:15 75 14 40 03/12/19 13:10 86 14 Mechanical Ventilator 40.0 40 03/12/19 13:10 97.9 86 14 122/78 99 Mechanical Ventilator 40.0 40 03/12/19 12:27 86 14 40 03/12/19 12:25 80 16 Mechanical Ventilator 40.0 40 03/12/19 12:02 97.9 87 15 122/78 99 Mechanical Ventilator 5.0 Mainor Newsome MD Mar 12, 2019 19:13
--- NOTE | 2019-03-12 19:31 | NUR ---
HAND-OFF: Report given to DB Davis.
--- NOTE | 2019-03-12 19:32 | NUR ---
NURSE NOTES: Received patient from Franc ACE. Patient is asleep and receiving oxygen via Portex 7 settings AC 14 TV 450 FiO2 40% PEEP 5. Patient has a Gtube is patent and receiving 2 Richy at 10cc/hr with a goal of 50cc/hr. IV site is a Left hand 20g that is patent and asymptomatic. Bed is locked, placed in lowest position, call light within reach, Side rails up x3. Will continue to monitor.
[2019-03-12 20:00] VITALS: BP 104/65
[2019-03-12] MEDS ORDERED: Vancomycin 1gm/D5W 275ml IVPB SCH ×2 (20:00)
[2019-03-12] MEDS: clonazePAM 0.5mg tab ORAL SCH (20:49)
[2019-03-12] MEDS: Heparin 5000 units/ml inj SUBQ SCH (20:50)
[2019-03-13] VITALS: BP 103/68
[2019-03-13 04:00] VITALS: BP 94/50
[2019-03-13 04:22] LABS: BASOPHILS % (AUTO) 1.4 % (0.0-2.0); EOSINOPHILS % (AUTO) 3.7 % (0.0-3.0); HEMATOCRIT 31.6 % (37.0-47.0); HEMOGLOBIN 9.7 G/DL (12.0-16.0); LYMPHOCYTES % (AUTO) 28.4 % (20.0-45.0); MEAN CORPUSCULAR VOLUME 88 FL (80-99); MONOCYTES % (AUTO) 4.6 % (1.0-10.0); PLATELET COUNT 432 K/UL (150-450); RED BLOOD COUNT 3.59 M/UL (4.20-5.40); RED CELL DISTRIBUTION WIDTH 19.8 % (11.6-14.8); WHITE BLOOD COUNT 6.2 K/UL (4.8-10.8)
[2019-03-13 04:38] LABS: ALBUMIN 2.6 G/DL (3.4-5.0); ANION GAP -23 mmol/L (5-15); BLOOD UREA NITROGEN 20 mg/dL (7-18); CALCIUM 11.5 MG/DL (8.5-10.1); CARBON DIOXIDE 32 MMOL/L (21-32); CREATININE 0.3 MG/DL (0.55-1.30); PHOSPHORUS 2.4 MG/DL (2.5-4.9); POTASSIUM 3.7 MMOL/L (3.5-5.1)
[2019-03-13 04:43] LABS: CHLORIDE 103 MMOL/L (98-107); SODIUM 134 MMOL/L (136-145)
[2019-03-13] MEDS: Cefepime HCl 1 GM in D5W 55 ML IV SCH (06:53)
--- NOTE | 2019-03-13 07:18 | NUR ---
RESPIRATORY NOTE: Patient received mechanically ventilated on PB 840 with current ordered vent settings. Patient has trach size 7.0 Portex cuffed that is secured with trach tie and guard. There are bilateral coarse breath sounds present upon auscultation. Small amount of thick white/clear secretions were suctioned via inline suction system without incident. Vent alarms are functional and audible. There is an ambu bag available at the bedside and the vent is connected to a red outlet. There are no signs of respiratory distress or shortness of breath noted. Patient appears comfortable a this time. Will continue to monitor.
--- NOTE | 2019-03-13 07:27 | NUR ---
HAND-OFF: Report given to Desiree ACE. Patient is stable. Addendum: 03/13/19 at 0811 by David Royal RN Report Given to Erum ACE (not Desiree ACE). Patient is stable.
--- NOTE | 2019-03-13 07:27 | NUR ---
NURSE NOTES: received patient report form lazaro rn. patient is noted to be on vent with the ff settings: ac 14, tv 450, fio2 40% peep 5.0. patient is on purewick. noted pressure ulcerations on bilateral ears, R&L buttocks. with IV line on the L hand. will follow plan of care.
[2019-03-13 08:00] VITALS: BP 137/83
[2019-03-13] MEDS: clonazePAM 0.5mg tab ORAL SCH ×2 (08:15→20:59)
[2019-03-13] MEDS: Heparin 5000 units/ml inj SUBQ SCH ×2 (08:20→21:03)
[2019-03-13] MEDS: Vancomycin 500mg/D5W 110ml IVPB SCH ×4 (08:21→20:59)
--- NOTE | 2019-03-13 09:53 | NUR ---
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 DYSPNEA VS: BP 93/53, P 80, T 98.9, RR 14, SpO2 100 on VENT AC 14, TV 450, PEEP 5.0, FiO2 40 RBC 3.61, Hgb 9.5, Hct 32.0, BUN 25, CR 0.3, Na 134 IS:D5W 275ml CEFEPIME 55ml IV VANCOMYCIN 275ml IVPB ADMITTED TO [facility] DCP: RETURN TO [facility]
--- NOTE | 2019-03-13 10:44 | NUR ---
RD ASSESSMENT & RECOMMENDATIONS SEE CARE ACTIVITY FOR COMPLETE ASSESSMENT DAILY ESTIMATED NEEDS: Needs based on Critical care, wounds 63kg 22-30 kcals/kg 1216-0533 total kcals 1.25-2 g protein/kg 79-126 g total protein 25-30 mL/kg 2835-0084 total fluid mLs NUTRITION DIAGNOSIS: 1) Swallowing difficulty r/t respiratory status as evidenced by pt is vent dep via trach, GT dep, on tube feeds. 2) Increased kcal and protein needs r/t wound healing as evidenced by pt w/ stage 3 sacral wound, and BL ear wounds per road oiler. CURRENT TF: TWOcal @50ml ENTERAL NUTRITION RECOMMENDATIONS: TF CHANGE TO -> VITAL AF 1.2 @50ml/hr x24 hrs to provide 1200ml, 1440 kcal, 90g pro, 973ml free H2O - REC TF CHANGE TO VITAL AF 1.2, start @30ml/hr, advance as tolerated 10ml q4-6 hrs to goal - Flush per MD. HOB over 30 degrees ADDITIONAL RECOMMENDATIONS: 1) PER SNF: pt is 139#, 65inches tall 2) WOUND CARE: Add ALEENA BID via GT daily Add Vit C 250mmg BID 3) Rec SSI, bedside blood checks 4) Check lytes daily, replete as needed (Low Phos 2.4) 5) Weekly CALIBRATED bed scale wts
--- NOTE | 2019-03-13 11:30 | History and Physical Report ---
DATE OF ADMISSION: 03/12/2019 CHIEF COMPLAINT: Shortness of breath. HISTORY OF PRESENT ILLNESS: This is a 68-year-old female with a past medical history significant for hypertension, chronic vent dependent respiratory failure, status post PEG and trach with a history of dyslipidemia, who has presented to the hospital from [facility] after was noted to have worsening of shortness of breath. Shortly after initial evaluation, the patient was noted to have worsening pleural effusion. The patient's usual baseline is nonverbal, cannot communicate, chronic debilitated. Most of the history is taken from the ER chart as well as nursing documentation. Shortly after initial evaluation in the emergency, the patient was admitted to the hospital with worsening of shortness of breath due to the pleural effusion. PAST MEDICAL HISTORY/PAST SURGICAL HISTORY: As above, history of chronic vent dependent, status post tracheostomy, status post PEG, and history of dyslipidemia. The patient has also history of high blood pressure. MEDICATIONS: At the nursing facility significant for acetaminophen, amlodipine, ascorbic acid, Lipitor, clonazepam, Colace, Lovenox, famotidine, heparin, multivitamin, and zinc. ALLERGIES: Benadryl as well as fluphenazine. SOCIAL HISTORY: [facility] resident. No smoking, alcohol, or drugs. FAMILY HISTORY: Noncontributory. REVIEW OF SYSTEMS: Very limited secondary to the patient's status. PHYSICAL EXAMINATION: VITAL SIGNS: On admission, temperature 97.9, pulse of 87, respirations of 15, and blood pressure 122/78. GENERAL: The patient is awake, opens her eyes, cannot follow commands. HEAD AND NECK: Pupils equal and react to light. Anicteric. NECK: Supple. No JVD. The patient has a tracheostomy site is intact. LUNGS: Good air entry. No wheezing or rhonchi. Decreased air in the bases. HEART: S1, S2. Distant heart sounds. No murmur or gallops. ABDOMEN: Soft, nondistended, nontender. PEG site is clean. EXTREMITIES: No cyanosis, clubbing, or edema. NEUROLOGIC: Examination very limited secondary to the patient's status. However, the patient moving all the extremities spontaneously slowly. RECTAL: Refused and deferred. GENITOURINARY: Refused and deferred. LABORATORY DATA: Laboratory on admission from the ER, WBC of 8.5, hemoglobin 9.5, hematocrit 32, and platelets is 503. Sodium 141, potassium 4.3, chloride 101, bicarb 35, BUN 25, creatinine 0.3, glucose is 129. First troponin 0.09. level is 2.7. PT 10, INR is 1.0, PTT of 24. ASSESSMENT: 1. Worsening of shortness of breath, most likely secondary to pleural effusion. 2. Chronic vent dependent respiratory failure. 3. Dysphagia, status post PEG. 4. Hypertension. 5. Dyslipidemia. PLAN: We will follow up with Dr. Corrigan, Pulmonary Critical Care recommendation. Monitor laboratory, ABG. Chest x-ray, broad-spectrum antibiotic with cefepime and vancomycin, nebulizer treatment. DVT prophylaxis with heparin subcutaneous. At this time, the patient's Code status is Full Code. Mainor Newsome M.D. DR: ZOILA JOB#: [id number] CC:
[2019-03-13 12:00] VITALS: BP 114/74
--- NOTE | 2019-03-13 13:58 | Consultation ---
History of Present Illness General Date patient seen: Mar 13, 2019 Chief Complaint: General Complaint Present Illness HPI 68 year old female known to me from recent admission and discharge where she had a foul smelling draining left ear wound that was cared for and being treated. She was discharged safely and now returns after episode of shortness of breath and respiratory decompensation requiring admission for care. on admission wounds requiring care and surgery called to assist. patient seen, chart reviewed, patient examined. Allergies: Coded Allergies: DIPHENHYDRAMINE (Verified Allergy, Unknown, 02/24/19) FLUPHENAZINE (Verified Allergy, Unknown, 02/24/19) Medication History Scheduled Amlodipine Besylate (Norvasc), 5 MG GT DAILY, (Reported) Ascorbic Acid* (Vitamin C*), 500 MG GT DAILY, (Reported) Atorvastatin Calcium* (Lipitor*), 10 MG GT DAILY, (Reported) Clonazepam* (Klonopin*), 0.5 MG ORAL Q12HR, (Reported) Docusate Sodium* (Colace*), 100 MG GT DAILY, (Reported) Enoxaparin* (Lovenox*), 40 MG SUBQ DAILY, (Reported) Famotidine (Famotidine), 20 MG GT DAILY, (Reported) Heparin Sod (Porcine) (Heparin Sodium*), 5,000 UNITS SUBQ EVERY 12 HOURS, ( Reported) Multivitamins* (Multivitamins*), 1 TAB GT DAILY, (Reported) Zinc Sulfate (Zinc Sulfate*), 220 MG GT DAILY, (Reported) Scheduled PRN Acetaminophen (Tylenol), 325 MG GT Q4HR PRN for Prn Pain/Headache/Temp > 101, ( Reported) Patient History Limited by: medical condition History Provided By: Medical Record, PMD Healthcare decision maker Chadwick Ricci (public guardian) Resuscitation status Full Code Advanced Directive on File Past Medical/Surgical History Past Medical/Surgical History: (1) Chronic respiratory failure (2) Acute and chronic respiratory failure (3) Feeding by G-tube (4) Severe anemia (5) Sepsis (6) Decubitus skin ulcer (7) MDRO (multiple drug resistant organisms) resistance (8) Pleural effusion Review of Systems ROS Narrative patient unable to respond or cooperate with exam Physical Exam General Appearance: no apparent distress Lines, tubes and drains: peripheral HEENT: mucous membranes moist Neck: trach, other Respiratory/Chest: decreased breath sounds, other Cardiovascular/Chest: normal rate Abdomen: soft, no organomegaly, no mass, feeding tube Genitourinary/Rectal: other Extremities: other Skin Exam: warm/dry, other Last 24 Hour Vital Signs Date Time Temp Pulse Resp B/P (MAP) Pulse Ox O2 Delivery O2 Flow Rate FiO2 03/13/19 12:31 79 16 40 03/13/19 12:00 40 03/13/19 12:00 Mechanical Ventilator 03/13/19 12:00 98.1 75 14 114/74 (87) 100 03/13/19 11:45 78 03/13/19 10:59 78 15 40 03/13/19 08:56 75 14 40 03/13/19 08:00 97.9 86 15 137/83 (101) 99 03/13/19 08:00 Mechanical Ventilator 03/13/19 08:00 90 03/13/19 08:00 40 03/13/19 07:15 79 14 40 03/13/19 05:28 72 14 40 03/13/19 04:00 99.7 75 14 94/50 (65) 99 03/13/19 04:00 40 03/13/19 04:00 40 03/13/19 04:00 Mechanical Ventilator 03/13/19 04:00 67 03/13/19 02:52 67 14 40 03/13/19 01:06 68 14 40 03/13/19 00:00 98.2 69 14 103/68 (80) 100 03/13/19 00:00 Mechanical Ventilator 03/13/19 00:00 40 03/13/19 00:00 69 03/12/19 22:36 70 14 40 03/12/19 21:00 71 14 40 03/12/19 20:00 40 03/12/19 20:00 77 03/12/19 20:00 97.5 77 14 104/65 (78) 96 03/12/19 20:00 Mechanical Ventilator 03/12/19 18:57 73 14 40 03/12/19 18:00 97.7 75 18 100/67 (78) 100 03/12/19 17:15 68 14 40 03/12/19 16:23 Mechanical Ventilator 03/12/19 16:00 97.8 72 16 93/55 (68) 100 03/12/19 15:30 98.9 80 14 93/53 100 Mechanical Ventilator 40.0 40 03/12/19 14:55 80 14 40 03/12/19 14:16 40 03/12/19 14:11 98.9 80 14 93/53 100 Mechanical Ventilator Intake and Output 03/12/19 03/13/19 18:59 06:59 Intake Total 65 ml 280 ml Balance 65 ml 280 ml Intake Oral 0 ml IV Total 55 ml Tube Feeding 10 ml 280 ml # Voids 2 2 # Bowel Movements 50 Laboratory Tests Test 03/13/19 04:00 White Blood Count 6.2 K/UL (4.8-10.8) Red Blood Count 3.59 M/UL (4.20-5.40) L Hemoglobin 9.7 G/DL (12.0-16.0) L Hematocrit 31.6 % (37.0-47.0) L Mean Corpuscular Volume 88 FL (80-99) Mean Corpuscular Hemoglobin 27.0 PG (27.0-31.0) Mean Corpuscular Hemoglobin Concent 30.6 G/DL (32.0-36.0) L Red Cell Distribution Width 19.8 % (11.6-14.8) H Platelet Count 432 K/UL (150-450) Mean Platelet Volume 5.8 FL (6.5-10.1) L Neutrophils (%) (Auto) 62.0 % (45.0-75.0) Lymphocytes (%) (Auto) 28.4 % (20.0-45.0) Monocytes (%) (Auto) 4.6 % (1.0-10.0) Eosinophils (%) (Auto) 3.7 % (0.0-3.0) H Basophils (%) (Auto) 1.4 % (0.0-2.0) Sodium Level 134 MMOL/L (136-145) L Potassium Level 3.7 MMOL/L (3.5-5.1) Chloride Level 103 MMOL/L (98-107) Carbon Dioxide Level 32 MMOL/L (21-32) Anion Gap -23 mmol/L (5-15) L Blood Urea Nitrogen 20 mg/dL (7-18) H Creatinine 0.3 MG/DL (0.55-1.30) L Estimat Glomerular Filtration Rate > 60 mL/min (>60) Glucose Level 124 MG/DL (74-106) H Calcium Level 11.5 MG/DL (8.5-10.1) H Phosphorus Level 2.4 MG/DL (2.5-4.9) L Albumin 2.6 G/DL (3.4-5.0) L Height (Feet): 5 Height (Inches): 4.00 Weight (Pounds): 130 Medications Current Medications Medications (Trade) Dose Ordered Sig/Lavon Route PRN Reason Start Time Stop Time Status Last Admin Dose Admin Acetaminophen (Tylenol) 650 mg Q4H PRN ORAL fever 03/12/19 17:00 04/11/19 16:59 Al Hydroxide/Mg Hydroxide (Mylanta II) 30 ml Q6H PRN ORAL dyspepsia 03/12/19 17:00 04/11/19 16:59 Albuterol/ Ipratropium (Albuterol/ Ipratropium) 3 ml Q4H PRN HHN Shortness of Breath 03/12/19 17:00 03/17/19 16:59 Amlodipine Besylate (Norvasc) 5 mg DAILY GT 03/13/19 09:00 04/12/19 08:59 Cefepime HCl 1 gm/ Dextrose 55 ml @ 110 mls/hr Q24H IV 03/13/19 06:00 03/20/19 05:59 03/13/19 06:53 Clonazepam (KlonoPIN) 0.5 mg Q12HR ORAL 03/12/19 21:00 03/19/19 20:59 03/13/19 08:15 Famotidine (Pepcid) 20 mg DAILY GT 03/13/19 09:00 04/12/19 08:59 03/13/19 08:15 Heparin Sodium (Porcine) (Heparin 5000 units/ml) 5,000 units EVERY 12 HOURS SUBQ 03/12/19 21:00 04/11/19 20:59 03/13/19 08:20 Nitroglycerin (Ntg) 0.4 mg Q5M PRN SL Prn Chest Pain 03/12/19 17:00 04/11/19 16:59 Ondansetron HCl (Zofran) 4 mg Q6H PRN IVP Nausea & Vomiting 03/12/19 17:00 04/11/19 16:59 Polyethylene Glycol (Miralax) 17 gm DAILYPRN PRN ORAL Constipation 03/12/19 17:00 04/11/19 16:59 Promethazine HCl/ Codeine (Phenergan with Codeine) 5 ml Q4H PRN ORAL For Cough 03/12/19 17:00 04/11/19 16:59 Temazepam (Restoril) 15 mg HSPRN PRN ORAL Insomnia 03/12/19 17:00 03/19/19 16:59 Vancomycin HCl (Vanco rx to dose) 1 ea DAILY PRN MISC Per rx protocol 03/12/19 17:00 04/11/19 16:59 Vancomycin HCl 500 mg/Dextrose 110 ml @ 110 mls/hr Q12H IVPB 03/13/19 08:00 03/18/19 07:59 03/13/19 08:21 Assessment/Plan Problem List: (1) Chronic respiratory failure ICD Codes: J96.10 - Chronic respiratory failure, unspecified whether with hypoxia or hypercapnia SNOMED: 59381212 (2) Decubitus skin ulcer Assessment & Plan: Pt presented on admission with slowly healing wound on Left earlobe.Wound was cleaned last admission and now with slowly healing tissue. no odor. no drainage. wound has contracted slightly. Periwound earlobe extending into ear canal has darker than is normal skin tone. Full thickness stage 3 sacral pressure injury with some slough otherwise wound is viable. Edges of wound macerated. Erythema periwound. Bilat heels firm and easily blanchable. Tx.PLan: Cleanse Sacral wound with Saline. Apply Therahoney .Apply Triad periwound.Cover with Optifoam drsg .Change daily and prn. Cleanse L ear with Saline. Apply Therahoney. Cover with Optifoam drsg .Change Daily and prn. Apply Cavilon to both heels .Cover each heel with Optifoam drsg. Change every 7 days and prn. Reposition at least every 2 hours or as tolerated. Off-load heels with Pillow. APM/SYLVIA mattress. ICD Codes: L89.90 - Pressure ulcer of unspecified site, unspecified stage SNOMED: 419831438 (3) Pleural effusion Assessment & Plan: as per pulm possible thoracentesis ICD Codes: J90 - Pleural effusion, not elsewhere classified SNOMED: 35194900 (4) Sepsis Assessment & Plan: cont IV Abx cont respiratory treatments AM labs AM CXR ICD Codes: A41.9 - Sepsis, unspecified organism SNOMED: 64277653 (5) Acute and chronic respiratory failure ICD Codes: J96.20 - Acute and chronic respiratory failure, unspecified whether with hypoxia or hypercapnia SNOMED: 72988540 (6) MDRO (multiple drug resistant organisms) resistance ICD Codes: Z16.35 - Resistance to multiple antimicrobial drugs SNOMED: 631649937 (7) Feeding by G-tube Assessment & Plan: DAILY ESTIMATED NEEDS: Needs based on Critical care, wounds 63kg 22-30 kcals/kg 9679-3884 total kcals 1.25-2 g protein/kg 79-126 g total protein 25-30 mL/kg 6733-0880 total fluid mLs NUTRITION DIAGNOSIS: 1) Swallowing difficulty r/t respiratory status as evidenced by pt is vent dep via trach, GT dep, on tube feeds. 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 CURRENT TF: TWOcal @50ml ENTERAL NUTRITION RECOMMENDATIONS: TF CHANGE TO -> VITAL AF 1.2 @50ml/hr x24 hrs to provide 1200ml, 1440 kcal, 90g pro, 973ml free H2O - REC TF CHANGE TO VITAL AF 1.2, start @30ml/hr, advance as tolerated 10ml q4-6 hrs to goal - Flush per MD. HOB over 30 degrees ADDITIONAL RECOMMENDATIONS: 1) PER SNF: pt is 139#, 65inches tall 2) WOUND CARE: Add ALEENA BID via GT daily Add Vit C 250mmg BID 3) Rec SSI, bedside blood checks 4) Check lytes daily, replete as needed (Low Phos 2.4) 5) Weekly CALIBRATED bed scale wts ICD Codes: Z93.1 - Gastrostomy status SNOMED: 041714212, 861516781, 022768784 (8) Severe anemia ICD Codes: D64.9 - Anemia, unspecified SNOMED: 475320319 Levon Nunes Mar 13, 2019 13:58
[2019-03-13 16:00] VITALS: BP 106/74
[2019-03-13 16:05] LABS: BASOPHILS % (AUTO) 1.1 % (0.0-2.0); HEMATOCRIT 30.6 % (37.0-47.0); HEMOGLOBIN 9.3 G/DL (12.0-16.0); LYMPHOCYTES % (AUTO) 23.1 % (20.0-45.0); MEAN CORPUSCULAR VOLUME 88 FL (80-99); MONOCYTES % (AUTO) 4.3 % (1.0-10.0); NEUTROPHILS % (AUTO) 68.4 % (45.0-75.0); PLATELET COUNT 494 K/UL (150-450); RED BLOOD COUNT 3.47 M/UL (4.20-5.40); RED CELL DISTRIBUTION WIDTH 19.6 % (11.6-14.8); WHITE BLOOD COUNT 8.1 K/UL (4.8-10.8)
--- NOTE | 2019-03-13 19:15 | NUR ---
NURSE NOTES: Nursing Report received from Erum ACE. Pt appears to be resting comfortably in bed. pt is alert and oriented times 1-2. pt services advisor is on and active, with no signs or symptoms of cardiac distress noted. Pt is Track to vent with respiratory settings of portex 7, AC 14, TV 450 Fio2 40 Peep of 5, no signs of symptoms of respiratory distress noted. Pt has a pure wick that is patent and able to suction and drain, no abnormalities noted. Pt is on a G tube diet of Vital AF running at 40cc/hr. G tube is patent and able to flush, no abnormalities noted. Pt has a L hand 20 G and is able to flush, no abnormalities noted. All safety precautions are in place, such as bed is in lowest position, safety alarm is active, side rails are up times 3, call light is within easy reach. Will proceed with plan of care.
--- NOTE | 2019-03-13 19:25 | NUR ---
HAND-OFF: Report given to bhavana matamoros.
[2019-03-13 20:00] VITALS: BP 117/76
--- NOTE | 2019-03-13 22:52 | Internal Med Progress Note ---
Subjective Physician Name Mainor Newsome Attending Physician Mainor Newsome MD Current Medications Medications (Trade) Dose Ordered Sig/Lavon Route PRN Reason Start Time Stop Time Status Last Admin Dose Admin Acetaminophen (Tylenol) 650 mg Q4H PRN ORAL fever 03/12/19 17:00 04/11/19 16:59 Al Hydroxide/Mg Hydroxide (Mylanta II) 30 ml Q6H PRN ORAL dyspepsia 03/12/19 17:00 04/11/19 16:59 Albuterol/ Ipratropium (Albuterol/ Ipratropium) 3 ml Q4H PRN HHN Shortness of Breath 03/12/19 17:00 03/17/19 16:59 Amlodipine Besylate (Norvasc) 5 mg DAILY GT 03/13/19 09:00 04/12/19 08:59 Cefepime HCl 1 gm/ Dextrose 55 ml @ 110 mls/hr Q24H IV 03/13/19 06:00 03/20/19 05:59 03/13/19 06:53 Clonazepam (KlonoPIN) 0.5 mg Q12HR ORAL 03/12/19 21:00 03/19/19 20:59 03/13/19 20:59 Famotidine (Pepcid) 20 mg DAILY GT 03/13/19 09:00 04/12/19 08:59 03/13/19 08:15 Heparin Sodium (Porcine) (Heparin 5000 units/ml) 5,000 units EVERY 12 HOURS SUBQ 03/12/19 21:00 04/11/19 20:59 03/13/19 21:03 Nitroglycerin (Ntg) 0.4 mg Q5M PRN SL Prn Chest Pain 03/12/19 17:00 04/11/19 16:59 Ondansetron HCl (Zofran) 4 mg Q6H PRN IVP Nausea & Vomiting 03/12/19 17:00 04/11/19 16:59 Polyethylene Glycol (Miralax) 17 gm DAILYPRN PRN ORAL Constipation 03/12/19 17:00 04/11/19 16:59 Promethazine HCl/ Codeine (Phenergan with Codeine) 5 ml Q4H PRN ORAL For Cough 03/12/19 17:00 04/11/19 16:59 Temazepam (Restoril) 15 mg HSPRN PRN ORAL Insomnia 03/12/19 17:00 03/19/19 16:59 Vancomycin HCl (Vanco rx to dose) 1 ea DAILY PRN MISC Per rx protocol 03/12/19 17:00 04/11/19 16:59 Vancomycin HCl 500 mg/Dextrose 110 ml @ 110 mls/hr Q12H IVPB 03/13/19 08:00 03/18/19 07:59 03/13/19 20:59 Allergies: Coded Allergies: DIPHENHYDRAMINE (Verified Allergy, Unknown, 02/24/19) FLUPHENAZINE (Verified Allergy, Unknown, 02/24/19) Subjective open eyes, tracking, on vent Objective Last Vital Signs Date Time Temp Pulse Resp B/P (MAP) Pulse Ox O2 Delivery O2 Flow Rate FiO2 03/13/19 20:48 77 14 40 03/13/19 16:00 Mechanical Ventilator 03/13/19 16:00 98.1 106/74 (85) 100 03/12/19 15:30 40.0 Laboratory Tests Test 03/13/19 04:00 03/13/19 15:40 White Blood Count 6.2 K/UL (4.8-10.8) 8.1 K/UL (4.8-10.8) Red Blood Count 3.59 M/UL (4.20-5.40) L 3.47 M/UL (4.20-5.40) L Hemoglobin 9.7 G/DL (12.0-16.0) L 9.3 G/DL (12.0-16.0) L Hematocrit 31.6 % (37.0-47.0) L 30.6 % (37.0-47.0) L Mean Corpuscular Volume 88 FL (80-99) 88 FL (80-99) Mean Corpuscular Hemoglobin 27.0 PG (27.0-31.0) 26.7 PG (27.0-31.0) L Mean Corpuscular Hemoglobin Concent 30.6 G/DL (32.0-36.0) L 30.2 G/DL (32.0-36.0) L Red Cell Distribution Width 19.8 % (11.6-14.8) H 19.6 % (11.6-14.8) H Platelet Count 432 K/UL (150-450) 494 K/UL (150-450) H Mean Platelet Volume 5.8 FL (6.5-10.1) L 5.5 FL (6.5-10.1) L Neutrophils (%) (Auto) 62.0 % (45.0-75.0) 68.4 % (45.0-75.0) Lymphocytes (%) (Auto) 28.4 % (20.0-45.0) 23.1 % (20.0-45.0) Monocytes (%) (Auto) 4.6 % (1.0-10.0) 4.3 % (1.0-10.0) Eosinophils (%) (Auto) 3.7 % (0.0-3.0) H 3.0 % (0.0-3.0) Basophils (%) (Auto) 1.4 % (0.0-2.0) 1.1 % (0.0-2.0) Sodium Level 134 MMOL/L (136-145) L Potassium Level 3.7 MMOL/L (3.5-5.1) Chloride Level 103 MMOL/L (98-107) Carbon Dioxide Level 32 MMOL/L (21-32) Anion Gap -23 mmol/L (5-15) L Blood Urea Nitrogen 20 mg/dL (7-18) H Creatinine 0.3 MG/DL (0.55-1.30) L Estimat Glomerular Filtration Rate > 60 mL/min (>60) Glucose Level 124 MG/DL (74-106) H Calcium Level 11.5 MG/DL (8.5-10.1) H Phosphorus Level 2.4 MG/DL (2.5-4.9) L Albumin 2.6 G/DL (3.4-5.0) L Intake and Output 03/12/19 03/13/19 19:00 07:00 Intake Total 75 ml 300 ml Balance 75 ml 300 ml Intake Oral 0 ml IV Total 55 ml Tube Feeding 20 ml 300 ml # Voids 4 # Bowel Movements 50 Objective GENERAL: awake, opens her eyes, cannot follow commands. HEAD AND NECK: Pupils equal and react to light. Anicteric. NECK: Supple. No JVD. The patient has a tracheostomy site is intact. LUNGS: Good air entry. No wheezing or rhonchi. Decreased air in the bases. HEART: S1, S2. Distant heart sounds. No murmur or gallops. ABDOMEN: Soft, nondistended, nontender. PEG site is clean. EXTREMITIES: No cyanosis, clubbing, or edema. NEUROLOGIC: Examination very limited secondary to the patient's status. moving all the extremities spontaneously slowly. Assessment/Plan Assessment/Plan ASSESSMENT: 1. Worsening of shortness of breath, most likely secondary to pleural effusion. 2. Chronic vent dependent respiratory failure. 3. Dysphagia, status post PEG. 4. Hypertension. 5. Dyslipidemia. PLAN: Dr. Corrigan, Pulmonary Critical Care recommendation. Monitor laboratory. Broad-spectrum antibiotic with cefepime and vancomycin, nebulizer treatment. DVT prophylaxis with heparin subcutaneous. Code status is Full Code. Mainor Newsome M.D. Mainor Newsome MD Mar 13, 2019 22:52
[2019-03-14] VITALS: BP 123/66
[2019-03-14 04:00] VITALS: BP 109/82
[2019-03-14] MEDS: Cefepime HCl 1 GM in D5W 55 ML IV SCH (05:33)
[2019-03-14 07:10] LABS: BASOPHILS % (AUTO) 0.9 % (0.0-2.0); EOSINOPHILS % (AUTO) 3.2 % (0.0-3.0); HEMATOCRIT 32.1 % (37.0-47.0); HEMOGLOBIN 9.5 G/DL (12.0-16.0); LYMPHOCYTES % (AUTO) 20.7 % (20.0-45.0); MEAN CORPUSCULAR VOLUME 89 FL (80-99); NEUTROPHILS % (AUTO) 70.2 % (45.0-75.0); PLATELET COUNT 483 K/UL (150-450); RED BLOOD COUNT 3.62 M/UL (4.20-5.40); RED CELL DISTRIBUTION WIDTH 19.5 % (11.6-14.8); WHITE BLOOD COUNT 8.1 K/UL (4.8-10.8)
[2019-03-14 07:25] LABS: ALANINE AMINOTRANSFERASE 29 U/L (12-78); ALBUMIN 2.6 G/DL (3.4-5.0); ALBUMIN/GLOBULIN RATIO 0.5 (1.0-2.7); ALKALINE PHOSPHATASE 94 U/L (46-116); ANION GAP 5 mmol/L (5-15); ASPARTATE AMINO TRANSFERASE 15 U/L (15-37); BILIRUBIN,TOTAL 0.2 MG/DL (0.2-1.0); BLOOD UREA NITROGEN 20 mg/dL (7-18); CALCIUM 10.9 MG/DL (8.5-10.1); CARBON DIOXIDE 31 MMOL/L (21-32); CHLORIDE 104 MMOL/L (98-107); CREATININE 0.3 MG/DL (0.55-1.30); POTASSIUM 3.9 MMOL/L (3.5-5.1); SODIUM 140 MMOL/L (136-145)
[2019-03-14 07:30] LABS: INR 1.1 (0.9-1.1)
--- NOTE | 2019-03-14 07:41 | NUR ---
HAND-OFF: Report given to Shy ACE.
--- NOTE | 2019-03-14 07:45 | NUR ---
NURSE NOTES: Received report from Diamond Dong RN. Patient awake, nonverbal, unable to follow commands. Trach to vent with settings of AC 14, TV 450, FiO2 40%, PEEP 5, no s/s of respiratory distress noted. GT feeding of Vital AF running @ 50 cc/hr, no residuals noted. HoB elevated. Female external catheter in place and attached to low, continuous suction. Left hand 20g saline lock patent and asymptomatic. Bed locked in lowest position with side rails up x 3. All needs attended to. Will continue to monitor.
[2019-03-14 08:00] VITALS: BP_SYST 120; BP_SYST 99; BP_DIAS 74; BP_DIAS 76
[2019-03-14] MEDS: clonazePAM 0.5mg tab ORAL SCH (08:47)
[2019-03-14] MEDS: Heparin 5000 units/ml inj SUBQ SCH (08:48)
[2019-03-14] MEDS ORDERED: Vancomycin 750mg/NS 275ml IVPB SCH ×2 (09:00)
--- NOTE | 2019-03-14 09:37 | Consultation ---
History of Present Illness General Date patient seen: Mar 14, 2019 Chief Complaint: General Complaint Reason for Consultation: Pleural effusion Present Illness HPI Ms. Ray is a 68 yo female with PMHx of HTN, HLD chronic repiratory failure s/p PEG and Trach who [facility]. She is not verbal so history was obtianed from the chart. In the ED she was Aferbile with no leukocytosis. CXR showed left sided pleural effusion. She had no reports fevers [facility] the [facility]. She was recently hospitalized with PNA but was D/C . ID consulted for pleural effusion PMHx/PSHx HTN HLD Chronic repiratory failure s/p PEG and Trach Encephalopathy SocHx Unable to obtainas paitent not verbal FamHx Unable to obtainas paitent not verbal Allergies: Coded Allergies: DIPHENHYDRAMINE (Verified Allergy, Unknown, 02/24/19) FLUPHENAZINE (Verified Allergy, Unknown, 02/24/19) Medication History Scheduled Amlodipine Besylate (Norvasc), 5 MG GT DAILY, (Reported) Ascorbic Acid* (Vitamin C*), 500 MG GT DAILY, (Reported) Atorvastatin Calcium* (Lipitor*), 10 MG GT DAILY, (Reported) Clonazepam* (Klonopin*), 0.5 MG ORAL Q12HR, (Reported) Docusate Sodium* (Colace*), 100 MG GT DAILY, (Reported) Enoxaparin* (Lovenox*), 40 MG SUBQ DAILY, (Reported) Famotidine (Famotidine), 20 MG GT DAILY, (Reported) Heparin Sod (Porcine) (Heparin Sodium*), 5,000 UNITS SUBQ EVERY 12 HOURS, ( Reported) Multivitamins* (Multivitamins*), 1 TAB GT DAILY, (Reported) Zinc Sulfate (Zinc Sulfate*), 220 MG GT DAILY, (Reported) Scheduled PRN Acetaminophen (Tylenol), 325 MG GT Q4HR PRN for Prn Pain/Headache/Temp > 101, ( Reported) Patient History Healthcare decision maker Chadwick Ricci (public guardian) Resuscitation status Full Code Advanced Directive on File Review of Systems ROS Narrative 12 point ROS negative except as note in the HPI. Physical Exam Last 24 Hour Vital Signs Date Time Temp Pulse Resp B/P (MAP) Pulse Ox O2 Delivery O2 Flow Rate FiO2 03/14/19 08:59 68 14 40 03/14/19 08:48 75 99/74 03/14/19 08:00 97.9 75 16 99/74 (82) 100 03/14/19 07:11 73 14 40 03/14/19 04:54 72 14 40 03/14/19 04:00 79 03/14/19 04:00 Mechanical Ventilator 03/14/19 04:00 40 03/14/19 04:00 98.4 71 14 109/82 (91) 100 03/14/19 02:52 82 14 40 03/14/19 01:16 79 14 40 03/14/19 00:00 98.6 79 14 123/66 (85) 97 03/14/19 00:00 Mechanical Ventilator 03/14/19 00:00 78 03/14/19 00:00 40 03/13/19 23:09 80 14 40 03/13/19 20:48 77 14 40 03/13/19 20:00 Mechanical Ventilator 03/13/19 20:00 98.4 81 14 117/76 (90) 100 03/13/19 20:00 79 03/13/19 20:00 40 03/13/19 19:07 79 14 40 03/13/19 17:07 76 14 40 03/13/19 16:00 Mechanical Ventilator 03/13/19 16:00 40 03/13/19 16:00 98.1 78 14 106/74 (85) 100 03/13/19 15:19 82 03/13/19 14:59 81 15 40 03/13/19 12:31 79 16 40 03/13/19 12:00 40 03/13/19 12:00 Mechanical Ventilator 03/13/19 12:00 98.1 75 14 114/74 (87) 100 03/13/19 11:45 78 03/13/19 10:59 78 15 40 Intake and Output 03/13/19 03/14/19 19:00 07:00 Intake Total 645 ml 875 ml Output Total 500 ml Balance 145 ml 875 ml Free Water 60 ml 180 ml IV Total 165 ml 165 ml Tube Feeding 420 ml 530 ml Output Urine Total 500 ml Laboratory Tests Test 03/13/19 15:40 03/14/19 07:00 White Blood Count 8.1 K/UL (4.8-10.8) 8.1 K/UL (4.8-10.8) Red Blood Count 3.47 M/UL (4.20-5.40) L 3.62 M/UL (4.20-5.40) L Hemoglobin 9.3 G/DL (12.0-16.0) L 9.5 G/DL (12.0-16.0) L Hematocrit 30.6 % (37.0-47.0) L 32.1 % (37.0-47.0) L Mean Corpuscular Volume 88 FL (80-99) 89 FL (80-99) Mean Corpuscular Hemoglobin 26.7 PG (27.0-31.0) L 26.2 PG (27.0-31.0) L Mean Corpuscular Hemoglobin Concent 30.2 G/DL (32.0-36.0) L 29.5 G/DL (32.0-36.0) L Red Cell Distribution Width 19.6 % (11.6-14.8) H 19.5 % (11.6-14.8) H Platelet Count 494 K/UL (150-450) H 483 K/UL (150-450) H Mean Platelet Volume 5.5 FL (6.5-10.1) L 5.9 FL (6.5-10.1) L Neutrophils (%) (Auto) 68.4 % (45.0-75.0) 70.2 % (45.0-75.0) Lymphocytes (%) (Auto) 23.1 % (20.0-45.0) 20.7 % (20.0-45.0) Monocytes (%) (Auto) 4.3 % (1.0-10.0) 5.0 % (1.0-10.0) Eosinophils (%) (Auto) 3.0 % (0.0-3.0) 3.2 % (0.0-3.0) H Basophils (%) (Auto) 1.1 % (0.0-2.0) 0.9 % (0.0-2.0) Erythrocyte Sedimentation Rate 63 MM/HR (0-30) H Prothrombin Time 11.2 SEC (9.30-11.50) Prothromb Time International Ratio 1.1 (0.9-1.1) Activated Partial Thromboplast Time 26 SEC (23-33) Sodium Level 140 MMOL/L (136-145) Potassium Level 3.9 MMOL/L (3.5-5.1) Chloride Level 104 MMOL/L (98-107) Carbon Dioxide Level 31 MMOL/L (21-32) Anion Gap 5 mmol/L (5-15) Blood Urea Nitrogen 20 mg/dL (7-18) H Creatinine 0.3 MG/DL (0.55-1.30) L Estimat Glomerular Filtration Rate > 60 mL/min (>60) Glucose Level 152 MG/DL (74-106) H Calcium Level 10.9 MG/DL (8.5-10.1) H Total Bilirubin 0.2 MG/DL (0.2-1.0) Aspartate Amino Transf (AST/SGOT) 15 U/L (15-37) Alanine Aminotransferase (ALT/SGPT) 29 U/L (12-78) Alkaline Phosphatase 94 U/L (46-116) C-Reactive Protein, Quantitative 0.7 mg/dL (0.00-0.90) Pro-B-Type Natriuretic Peptide 21 pg/mL (0-125) Total Protein 7.4 G/DL (6.4-8.2) Albumin 2.6 G/DL (3.4-5.0) L Globulin 4.8 g/dL Albumin/Globulin Ratio 0.5 (1.0-2.7) L Vancomycin Level Trough 8.2 ug/mL (5.0-12.0) Height (Feet): 5 Height (Inches): 4.00 Weight (Pounds): 130 Medications Current Medications Medications (Trade) Dose Ordered Sig/Lavon Route PRN Reason Start Time Stop Time Status Last Admin Dose Admin Acetaminophen (Tylenol) 650 mg Q4H PRN ORAL fever 03/12/19 17:00 04/11/19 16:59 Al Hydroxide/Mg Hydroxide (Mylanta II) 30 ml Q6H PRN ORAL dyspepsia 03/12/19 17:00 04/11/19 16:59 Albuterol/ Ipratropium (Albuterol/ Ipratropium) 3 ml Q4H PRN HHN Shortness of Breath 03/12/19 17:00 03/17/19 16:59 Amlodipine Besylate (Norvasc) 5 mg DAILY GT 03/13/19 09:00 04/12/19 08:59 Cefepime HCl 1 gm/ Dextrose 55 ml @ 110 mls/hr Q24H IV 03/13/19 06:00 03/20/19 05:59 03/14/19 05:33 Clonazepam (KlonoPIN) 0.5 mg Q12HR ORAL 03/12/19 21:00 03/19/19 20:59 03/14/19 08:47 Famotidine (Pepcid) 20 mg DAILY GT 03/13/19 09:00 04/12/19 08:59 03/14/19 08:47 Heparin Sodium (Porcine) (Heparin 5000 units/ml) 5,000 units EVERY 12 HOURS SUBQ 03/12/19 21:00 04/11/19 20:59 03/14/19 08:48 Nitroglycerin (Ntg) 0.4 mg Q5M PRN SL Prn Chest Pain 03/12/19 17:00 04/11/19 16:59 Ondansetron HCl (Zofran) 4 mg Q6H PRN IVP Nausea & Vomiting 03/12/19 17:00 04/11/19 16:59 Polyethylene Glycol (Miralax) 17 gm DAILYPRN PRN ORAL Constipation 03/12/19 17:00 04/11/19 16:59 Promethazine HCl/ Codeine (Phenergan with Codeine) 5 ml Q4H PRN ORAL For Cough 03/12/19 17:00 04/11/19 16:59 Temazepam (Restoril) 15 mg HSPRN PRN ORAL Insomnia 03/12/19 17:00 03/19/19 16:59 Vancomycin HCl (Vanco rx to dose) 1 ea DAILY PRN MISC Per rx protocol 03/12/19 17:00 04/11/19 16:59 Vancomycin HCl 750 mg/Sodium Chloride 275 ml @ 183.333 mls/hr Q12HR IVPB 03/14/19 09:00 03/19/19 08:59 Objective Narrative Gen: Awake and not following, Trached on Vent 40% HEENT: NCAT, MMM, PERRL, No Oral lesion, no scleral icterus NECK: supple, No LAD, No JVD LUNGS: Course B/L, Decrease breath sounds in bases, No Wheezing CARDS: RRR, S1, S2, No M/R/G, ABD: Soft, NT, ND, No R/G, + BS, No HSM, No Masses : Deferred Ext: C/C/E, Pulses 2+ B/L (DP, Rad): NEURO: Not verbal, No following SKIN: Warm/dry, No rashes Assessment/Plan Assessment/Plan 68 yo female with PMHx of HTN, HLD chronic repiratory failure s/p PEG and Trach who was sen to the ED from [facility] for SOB. Pleural effusion No sign of active infection at this time Aferbile No leukocytosis CXR - Final read pending Elevated LFTs Sacral ulcer No P/E Ear wound healing chronic respiratory failure s/p trach/vent PEG schizoaffective disorder Plan: - Monitor off abx - 03/14/19 SP - Vancomycin and Zosyn - Consider therapeutic thoracentesis -Monitor CBC/CMP, temperatures Thank you for this consult. We will continue to follow the patient during this hospitalization. Chadwick Keith MD Mar 14, 2019 09:37
--- NOTE | 2019-03-14 09:47 | NUR ---
RADIOLOGY DEPT., CHEST X-RAY COMPLETED.-[email or web address]
--- NOTE | 2019-03-14 10:04 | NUR ---
[facility] SI:PLEURAL EFFUSION . DYSPNEA VS: BP 99/74, P 68, T 97.9, RR 16, SpO2 100 on VENT AC 14, TV 450, PEEP 5.0, [id number] RBC 3.62, Hgb 9.5, Hct 32.1, BUN 20, Cr 0.3 IS:HEPARIN SUBQ KLONOPIN 0.5mg CEFEPIME 55ml IV PEPCID 20mg GT NORVASC 5mg GT VANCOMYCIN 275ml IVPB SDU STATUS
--- NOTE | 2019-03-14 10:57 | Consultation ---
History of Present Illness General Date patient seen: Mar 14, 2019 Chief Complaint: General Complaint Reason for Consultation: Pleural effusion Present Illness HPI 68 year old female with hx of chronic trach, PEG, bed bound, shelter resident presented from nursing facility with reports of worsening pleural effusion There was no reports of vomiting or diarrhea history of present illness is significantly limited. Recent imaging has shown worsening findings and therefore patient was sent to the emergency room. Pt is admitted to [facility] for further management. Allergies: Coded Allergies: DIPHENHYDRAMINE (Verified Allergy, Unknown, 02/24/19) FLUPHENAZINE (Verified Allergy, Unknown, 02/24/19) Medication History Scheduled Amlodipine Besylate (Norvasc), 5 MG GT DAILY, (Reported) Ascorbic Acid* (Vitamin C*), 500 MG GT DAILY, (Reported) Atorvastatin Calcium* (Lipitor*), 10 MG GT DAILY, (Reported) Clonazepam* (Klonopin*), 0.5 MG ORAL Q12HR, (Reported) Docusate Sodium* (Colace*), 100 MG GT DAILY, (Reported) Enoxaparin* (Lovenox*), 40 MG SUBQ DAILY, (Reported) Famotidine (Famotidine), 20 MG GT DAILY, (Reported) Heparin Sod (Porcine) (Heparin Sodium*), 5,000 UNITS SUBQ EVERY 12 HOURS, ( Reported) Multivitamins* (Multivitamins*), 1 TAB GT DAILY, (Reported) Zinc Sulfate (Zinc Sulfate*), 220 MG GT DAILY, (Reported) Scheduled PRN Acetaminophen (Tylenol), 325 MG GT Q4HR PRN for Prn Pain/Headache/Temp > 101, ( Reported) Patient History Healthcare decision maker Chadwick Ricci (public guardian) Resuscitation status Full Code Advanced Directive on File Past Medical/Surgical History Past Medical/Surgical History: (1) MDRO (multiple drug resistant organisms) resistance (2) Chronic respiratory failure (3) Feeding by G-tube Review of Systems Constitutional: Reports: no symptoms All Other Systems: negative except mentioned in HPI Physical Exam General Appearance: WD/WN, no apparent distress Lines, tubes and drains: peripheral HEENT: normocephalic, atraumatic Neck: non-tender, normal alignment Respiratory/Chest: chest wall non-tender, lungs clear Cardiovascular/Chest: normal peripheral pulses, normal rate Abdomen: normal bowel sounds, non tender Genitourinary/Rectal: normal genital exam, normal rectal exam Extremities: normal range of motion Skin Exam: normal pigmentation Last 24 Hour Vital Signs Date Time Temp Pulse Resp B/P (MAP) Pulse Ox O2 Delivery O2 Flow Rate FiO2 03/14/19 08:59 68 14 40 03/14/19 08:48 75 99/74 03/14/19 08:00 76 03/14/19 08:00 Mechanical Ventilator 03/14/19 08:00 40 03/14/19 08:00 97.9 75 16 99/74 (82) 100 03/14/19 07:11 73 14 40 03/14/19 04:54 72 14 40 03/14/19 04:00 79 03/14/19 04:00 Mechanical Ventilator 03/14/19 04:00 40 03/14/19 04:00 98.4 71 14 109/82 (91) 100 03/14/19 02:52 82 14 40 03/14/19 01:16 79 14 40 03/14/19 00:00 98.6 79 14 123/66 (85) 97 03/14/19 00:00 Mechanical Ventilator 03/14/19 00:00 78 03/14/19 00:00 40 03/13/19 23:09 80 14 40 03/13/19 20:48 77 14 40 03/13/19 20:00 Mechanical Ventilator 03/13/19 20:00 98.4 81 14 117/76 (90) 100 03/13/19 20:00 79 03/13/19 20:00 40 03/13/19 19:07 79 14 40 03/13/19 17:07 76 14 40 03/13/19 16:00 Mechanical Ventilator 03/13/19 16:00 40 03/13/19 16:00 98.1 78 14 106/74 (85) 100 03/13/19 15:19 82 03/13/19 14:59 81 15 40 03/13/19 12:31 79 16 40 03/13/19 12:00 40 03/13/19 12:00 Mechanical Ventilator 03/13/19 12:00 98.1 75 14 114/74 (87) 100 03/13/19 11:45 78 03/13/19 10:59 78 15 40 Intake and Output 03/13/19 03/14/19 19:00 07:00 Intake Total 645 ml 875 ml Output Total 500 ml Balance 145 ml 875 ml Free Water 60 ml 180 ml IV Total 165 ml 165 ml Tube Feeding 420 ml 530 ml Output Urine Total 500 ml Laboratory Tests Test 03/13/19 15:40 03/14/19 07:00 White Blood Count 8.1 K/UL (4.8-10.8) 8.1 K/UL (4.8-10.8) Red Blood Count 3.47 M/UL (4.20-5.40) L 3.62 M/UL (4.20-5.40) L Hemoglobin 9.3 G/DL (12.0-16.0) L 9.5 G/DL (12.0-16.0) L Hematocrit 30.6 % (37.0-47.0) L 32.1 % (37.0-47.0) L Mean Corpuscular Volume 88 FL (80-99) 89 FL (80-99) Mean Corpuscular Hemoglobin 26.7 PG (27.0-31.0) L 26.2 PG (27.0-31.0) L Mean Corpuscular Hemoglobin Concent 30.2 G/DL (32.0-36.0) L 29.5 G/DL (32.0-36.0) L Red Cell Distribution Width 19.6 % (11.6-14.8) H 19.5 % (11.6-14.8) H Platelet Count 494 K/UL (150-450) H 483 K/UL (150-450) H Mean Platelet Volume 5.5 FL (6.5-10.1) L 5.9 FL (6.5-10.1) L Neutrophils (%) (Auto) 68.4 % (45.0-75.0) 70.2 % (45.0-75.0) Lymphocytes (%) (Auto) 23.1 % (20.0-45.0) 20.7 % (20.0-45.0) Monocytes (%) (Auto) 4.3 % (1.0-10.0) 5.0 % (1.0-10.0) Eosinophils (%) (Auto) 3.0 % (0.0-3.0) 3.2 % (0.0-3.0) H Basophils (%) (Auto) 1.1 % (0.0-2.0) 0.9 % (0.0-2.0) Erythrocyte Sedimentation Rate 63 MM/HR (0-30) H Prothrombin Time 11.2 SEC (9.30-11.50) Prothromb Time International Ratio 1.1 (0.9-1.1) Activated Partial Thromboplast Time 26 SEC (23-33) Sodium Level 140 MMOL/L (136-145) Potassium Level 3.9 MMOL/L (3.5-5.1) Chloride Level 104 MMOL/L (98-107) Carbon Dioxide Level 31 MMOL/L (21-32) Anion Gap 5 mmol/L (5-15) Blood Urea Nitrogen 20 mg/dL (7-18) H Creatinine 0.3 MG/DL (0.55-1.30) L Estimat Glomerular Filtration Rate > 60 mL/min (>60) Glucose Level 152 MG/DL (74-106) H Calcium Level 10.9 MG/DL (8.5-10.1) H Total Bilirubin 0.2 MG/DL (0.2-1.0) Aspartate Amino Transf (AST/SGOT) 15 U/L (15-37) Alanine Aminotransferase (ALT/SGPT) 29 U/L (12-78) Alkaline Phosphatase 94 U/L (46-116) C-Reactive Protein, Quantitative 0.7 mg/dL (0.00-0.90) Pro-B-Type Natriuretic Peptide 21 pg/mL (0-125) Total Protein 7.4 G/DL (6.4-8.2) Albumin 2.6 G/DL (3.4-5.0) L Globulin 4.8 g/dL Albumin/Globulin Ratio 0.5 (1.0-2.7) L Vancomycin Level Trough 8.2 ug/mL (5.0-12.0) Height (Feet): 5 Height (Inches): 4.00 Weight (Pounds): 130 Medications Current Medications Medications (Trade) Dose Ordered Sig/Lavon Route PRN Reason Start Time Stop Time Status Last Admin Dose Admin Acetaminophen (Tylenol) 650 mg Q4H PRN ORAL fever 03/12/19 17:00 04/11/19 16:59 Al Hydroxide/Mg Hydroxide (Mylanta II) 30 ml Q6H PRN ORAL dyspepsia 03/12/19 17:00 04/11/19 16:59 Albuterol/ Ipratropium (Albuterol/ Ipratropium) 3 ml Q4H PRN HHN Shortness of Breath 03/12/19 17:00 03/17/19 16:59 Amlodipine Besylate (Norvasc) 5 mg DAILY GT 03/13/19 09:00 04/12/19 08:59 Clonazepam (KlonoPIN) 0.5 mg Q12HR ORAL 03/12/19 21:00 03/19/19 20:59 03/14/19 08:47 Famotidine (Pepcid) 20 mg DAILY GT 03/13/19 09:00 04/12/19 08:59 03/14/19 08:47 Heparin Sodium (Porcine) (Heparin 5000 units/ml) 5,000 units EVERY 12 HOURS SUBQ 03/12/19 21:00 04/11/19 20:59 03/14/19 08:48 Nitroglycerin (Ntg) 0.4 mg Q5M PRN SL Prn Chest Pain 03/12/19 17:00 04/11/19 16:59 Ondansetron HCl (Zofran) 4 mg Q6H PRN IVP Nausea & Vomiting 03/12/19 17:00 04/11/19 16:59 Polyethylene Glycol (Miralax) 17 gm DAILYPRN PRN ORAL Constipation 03/12/19 17:00 04/11/19 16:59 Promethazine HCl/ Codeine (Phenergan with Codeine) 5 ml Q4H PRN ORAL For Cough 03/12/19 17:00 04/11/19 16:59 Temazepam (Restoril) 15 mg HSPRN PRN ORAL Insomnia 03/12/19 17:00 03/19/19 16:59 Assessment/Plan Problem List: (1) Acute and chronic respiratory failure ICD Codes: J96.20 - Acute and chronic respiratory failure, unspecified whether with hypoxia or hypercapnia SNOMED: 24562517 (2) Severe anemia ICD Codes: D64.9 - Anemia, unspecified SNOMED: 769562249 (3) Feeding by G-tube ICD Codes: Z93.1 - Gastrostomy status SNOMED: 479246882, 391495694, 027231612 (4) Chronic respiratory failure ICD Codes: J96.10 - Chronic respiratory failure, unspecified whether with hypoxia or hypercapnia SNOMED: 97781111 (5) Decubitus skin ulcer ICD Codes: L89.90 - Pressure ulcer of unspecified site, unspecified stage SNOMED: 288818848 Respiratory: adjust tidal volume, monitor respiratory rate, adjust FIO2 Cardiac: continue to monitor HR/BP Renal: F/U I&O, check electrolytes Infectious Disease: check cultures Gastrointestinal: continue feedings/current rate Endocrine: monitor blood sugar, check TSH Hematologic: transfuse if hgb<8.5 Neurologic: PRN Morphine, keep patient comfortable Prophylaxis: Protonix Notes Reviewed: hospital account manager, renal Discussed with: consultants, binder caser Rula Corrigan MD Mar 14, 2019 10:57
--- NOTE | 2019-03-14 11:21 | Diagnostic Imaging Report ---
Indication: Dyspnea Technique: One view of the chest Comparison: 03/12/2019 Findings: Left-sided pleural effusion is again demonstrated. There is suggestion of central interstitial and airspace disease with peripheral lucencies; similarity to multiple prior exams raises possibility of a significant chronic component. Right lung pleural space remain clear. Findings are overall unchanged Impression: Unchanged left pleural effusion, over 2 days Left lung parenchymal disease as described. May at least in part represent chronic interstitial opacities and bullous changes. Correlate with clinical history and findings
[2019-03-14 12:00] VITALS: BP 124/73
--- NOTE | 2019-03-14 12:53 | Consultation ---
Consult Note Consult Note asked by Dr Newsome to eval for hyperCalcemia according to the data : This is a 68-year-old female with a past medical history significant for hypertension, chronic vent dependent respiratory failure, status post PEG and trach with a history of dyslipidemia, who has presented to the hospital from [facility] after was noted to have worsening of shortness of breath. Shortly after initial evaluation, the patient was noted to have worsening pleural effusion. The patient's usual baseline is nonverbal, cannot communicate, chronic debilitated. Most of the history is taken from the ER chart as well as nursing documentation. Shortly after initial evaluation in the emergency, the patient was admitted to the hospital with worsening of shortness of breath due to the pleural effusion. PAST MEDICAL HISTORY/PAST SURGICAL HISTORY: As above, history of chronic vent dependent, status post tracheostomy, status post PEG, and history of dyslipidemia. The patient has also history of high blood pressure. patient non verbal examined data reviewed Assessment/Plan HyperCalcemia, corrected for low Albumin is : 12 ! etiology of high Ca unknown at this time HTN High Lipids HypoAlbuminemia Acute on Chronic resp failure- Pleural effusion PEG Severe Anemia Multi Decubs Aredia Hydrate Stop BP meds as BP is low gastric support Anemia dunbar PTH and TFT check per orders Palomo Lizarraga MD Mar 14, 2019 12:53
[2019-03-14] MEDS ORDERED: Miralax 17gm pkt GT PRN (13:00)
[2019-03-14] MEDS ORDERED: Acetaminophen 650mg/20.3ml GT PRN (13:00)
[2019-03-14] MEDS ORDERED: Promethazine/Codeine 5ml UD GT PRN (13:00)
--- NOTE | 2019-03-14 13:24 | Surgery Progress Note ---
Surgery Progress Note Subjective Additional Comments no acute events. labs noted. exam stable. cxr with effusion Objective Last 24 Hour Vital Signs Date Time Temp Pulse Resp B/P (MAP) Pulse Ox O2 Delivery O2 Flow Rate FiO2 03/14/19 13:15 74 15 40 03/14/19 12:02 77 03/14/19 12:00 97.7 75 16 124/73 (90) 100 03/14/19 12:00 Mechanical Ventilator 03/14/19 12:00 40 03/14/19 11:02 76 14 40 03/14/19 08:59 68 14 40 03/14/19 08:48 75 99/74 03/14/19 08:00 76 03/14/19 08:00 Mechanical Ventilator 03/14/19 08:00 40 03/14/19 08:00 97.9 75 16 99/74 (82) 100 03/14/19 07:11 73 14 40 03/14/19 04:54 72 14 40 03/14/19 04:00 79 03/14/19 04:00 Mechanical Ventilator 03/14/19 04:00 40 03/14/19 04:00 98.4 71 14 109/82 (91) 100 03/14/19 02:52 82 14 40 03/14/19 01:16 79 14 40 03/14/19 00:00 98.6 79 14 123/66 (85) 97 03/14/19 00:00 Mechanical Ventilator 03/14/19 00:00 78 03/14/19 00:00 40 03/13/19 23:09 80 14 40 03/13/19 20:48 77 14 40 03/13/19 20:00 Mechanical Ventilator 03/13/19 20:00 98.4 81 14 117/76 (90) 100 03/13/19 20:00 79 03/13/19 20:00 40 03/13/19 19:07 79 14 40 03/13/19 17:07 76 14 40 03/13/19 16:00 Mechanical Ventilator 03/13/19 16:00 40 03/13/19 16:00 98.1 78 14 106/74 (85) 100 03/13/19 15:19 82 03/13/19 14:59 81 15 40 I&O Intake and Output 03/13/19 03/14/19 19:00 07:00 Intake Total 645 ml 875 ml Output Total 500 ml Balance 145 ml 875 ml Free Water 60 ml 180 ml IV Total 165 ml 165 ml Tube Feeding 420 ml 530 ml Output Urine Total 500 ml Dressing: saturated Wound: other Drains: other Cardiovascular: RSR Respiratory: clear Abdomen: present bowel sounds, other, non-distended Extremities: no cyanosis Laboratory Tests Test 03/13/19 15:40 03/14/19 07:00 White Blood Count 8.1 K/UL (4.8-10.8) 8.1 K/UL (4.8-10.8) Red Blood Count 3.47 M/UL (4.20-5.40) L 3.62 M/UL (4.20-5.40) L Hemoglobin 9.3 G/DL (12.0-16.0) L 9.5 G/DL (12.0-16.0) L Hematocrit 30.6 % (37.0-47.0) L 32.1 % (37.0-47.0) L Mean Corpuscular Volume 88 FL (80-99) 89 FL (80-99) Mean Corpuscular Hemoglobin 26.7 PG (27.0-31.0) L 26.2 PG (27.0-31.0) L Mean Corpuscular Hemoglobin Concent 30.2 G/DL (32.0-36.0) L 29.5 G/DL (32.0-36.0) L Red Cell Distribution Width 19.6 % (11.6-14.8) H 19.5 % (11.6-14.8) H Platelet Count 494 K/UL (150-450) H 483 K/UL (150-450) H Mean Platelet Volume 5.5 FL (6.5-10.1) L 5.9 FL (6.5-10.1) L Neutrophils (%) (Auto) 68.4 % (45.0-75.0) 70.2 % (45.0-75.0) Lymphocytes (%) (Auto) 23.1 % (20.0-45.0) 20.7 % (20.0-45.0) Monocytes (%) (Auto) 4.3 % (1.0-10.0) 5.0 % (1.0-10.0) Eosinophils (%) (Auto) 3.0 % (0.0-3.0) 3.2 % (0.0-3.0) H Basophils (%) (Auto) 1.1 % (0.0-2.0) 0.9 % (0.0-2.0) Erythrocyte Sedimentation Rate 63 MM/HR (0-30) H Prothrombin Time 11.2 SEC (9.30-11.50) Prothromb Time International Ratio 1.1 (0.9-1.1) Activated Partial Thromboplast Time 26 SEC (23-33) Sodium Level 140 MMOL/L (136-145) Potassium Level 3.9 MMOL/L (3.5-5.1) Chloride Level 104 MMOL/L (98-107) Carbon Dioxide Level 31 MMOL/L (21-32) Anion Gap 5 mmol/L (5-15) Blood Urea Nitrogen 20 mg/dL (7-18) H Creatinine 0.3 MG/DL (0.55-1.30) L Estimat Glomerular Filtration Rate > 60 mL/min (>60) Glucose Level 152 MG/DL (74-106) H Calcium Level 10.9 MG/DL (8.5-10.1) H Total Bilirubin 0.2 MG/DL (0.2-1.0) Aspartate Amino Transf (AST/SGOT) 15 U/L (15-37) Alanine Aminotransferase (ALT/SGPT) 29 U/L (12-78) Alkaline Phosphatase 94 U/L (46-116) C-Reactive Protein, Quantitative 0.7 mg/dL (0.00-0.90) Pro-B-Type Natriuretic Peptide 21 pg/mL (0-125) Total Protein 7.4 G/DL (6.4-8.2) Albumin 2.6 G/DL (3.4-5.0) L Globulin 4.8 g/dL Albumin/Globulin Ratio 0.5 (1.0-2.7) L Vancomycin Level Trough 8.2 ug/mL (5.0-12.0) Plan Problems: (1) Chronic respiratory failure (2) Decubitus skin ulcer Assessment & Plan: Pt presented on admission with slowly healing wound on Left earlobe.Wound was cleaned last admission and now with slowly healing tissue. no odor. no drainage. wound has contracted slightly. Periwound earlobe extending into ear canal has darker than is normal skin tone. Full thickness stage 3 sacral pressure injury with some slough otherwise wound is viable. Edges of wound macerated. Erythema periwound. Bilat heels firm and easily blanchable. Tx.PLan: Cleanse Sacral wound with Saline. Apply Therahoney .Apply Triad periwound.Cover with Optifoam drsg .Change daily and prn. Cleanse L ear with Saline. Apply Therahoney. Cover with Optifoam drsg .Change Daily and prn. Apply Cavilon to both heels .Cover each heel with Optifoam drsg. Change every 7 days and prn. Reposition at least every 2 hours or as tolerated. Off-load heels with Pillow. APM/SYLVIA mattress. (3) Pleural effusion Assessment & Plan: as per pulm possible thoracentesis (4) Sepsis Assessment & Plan: cont IV Abx cont respiratory treatments AM labs AM CXR (5) Acute and chronic respiratory failure (6) MDRO (multiple drug resistant organisms) resistance (7) Feeding by G-tube Assessment & Plan: DAILY ESTIMATED NEEDS: Needs based on Critical care, wounds 63kg 22-30 kcals/kg 0077-0117 total kcals 1.25-2 g protein/kg 79-126 g total protein 25-30 mL/kg 0027-1504 total fluid mLs NUTRITION DIAGNOSIS: 1) Swallowing difficulty r/t respiratory status as evidenced by pt is vent dep via trach, GT dep, on tube feeds. 2) Increased kcal and protein needs r/t wound healing as evidenced by pt w/ stage 3 sacral wound, and BL ear wounds per household appliances salesperson. CURRENT TF: TWOcal @50ml ENTERAL NUTRITION RECOMMENDATIONS: TF CHANGE TO -> VITAL AF 1.2 @50ml/hr x24 hrs to provide 1200ml, 1440 kcal, 90g pro, 973ml free H2O - REC TF CHANGE TO VITAL AF 1.2, start @30ml/hr, advance as tolerated 10ml q4-6 hrs to goal - Flush per MD. HOB over 30 degrees ADDITIONAL RECOMMENDATIONS: 1) PER SNF: pt is 139#, 65inches tall 2) WOUND CARE: Add ALEENA BID via GT daily Add Vit C 250mmg BID 3) Rec SSI, bedside blood checks 4) Check lytes daily, replete as needed (Low Phos 2.4) 5) Weekly CALIBRATED bed scale wts (8) Severe anemia Levon Nunes Mar 14, 2019 13:24
--- NOTE | 2019-03-14 13:25 | NUR ---
DISCHARGE PLANNED PT. DC TO [facility] [address]- FOR NURSE TO NURSE REPORT [facility] WAS PLACED ON WILL CALL
--- NOTE | 2019-03-14 14:39 | NUR ---
*-* INSURANCE *-* ALL CLINICALS AND REVIEWS HAVE BEEN FAXED TO: [employer] SECURITY OFFICER SUPERVISOR ASSIGNED AT THIS TIME PLEASE FAX THE REVIEW/CLINICAL P- [phone] F- [phone]............REVIEW/CLINICAL
[2019-03-14] MEDS ORDERED: Pamidronate Disodium Inj 90 MG in Sodium Chloride 550 ML IVPB SCH (15:00)
[2019-03-14 16:00] VITALS: BP 113/74
--- NOTE | 2019-03-14 16:33 | NUR ---
NURSE NOTES: Report given to Sophia Panda RN dirt supervisor, at [facility]. Patient due for pick-up by [facility] at 17:00. Addendum: 03/14/19 at 1635 by MELANIE POTTER RN Patient for pick-up at 17:45
--- NOTE | 2019-03-14 17:03 | Internal Med Progress Note ---
Subjective Physician Name Mainor Newsome Attending Physician Mainor Newsome MD Current Medications Medications (Trade) Dose Ordered Sig/Lavon Route PRN Reason Start Time Stop Time Status Last Admin Dose Admin Acetaminophen (Tylenol) 650 mg Q4H PRN GT fever 03/14/19 13:00 04/11/19 16:59 Albuterol/ Ipratropium (Albuterol/ Ipratropium) 3 ml Q4H PRN HHN Shortness of Breath 03/12/19 17:00 03/17/19 16:59 Clonazepam (KlonoPIN) 0.5 mg Q12HR GT 03/14/19 21:00 03/19/19 20:59 Heparin Sodium (Porcine) (Heparin 5000 units/ml) 5,000 units EVERY 12 HOURS SUBQ 03/12/19 21:00 04/11/19 20:59 03/14/19 08:48 Lansoprazole (Prevacid) 30 mg BID GT 03/14/19 18:00 04/13/19 17:59 Nitroglycerin (Ntg) 0.4 mg Q5M PRN SL Prn Chest Pain 03/12/19 17:00 04/11/19 16:59 Ondansetron HCl (Zofran) 4 mg Q6H PRN IVP Nausea & Vomiting 03/12/19 17:00 04/11/19 16:59 Pamidronate Disodium 90 mg/ Sodium Chloride 550 ml @ 137.5 mls/ hr ONCE IVPB 03/14/19 15:00 03/14/19 19:00 03/14/19 15:37 Polyethylene Glycol (Miralax) 17 gm DAILYPRN PRN GT Constipation 03/14/19 13:00 04/11/19 16:59 Promethazine HCl/ Codeine (Phenergan with Codeine) 5 ml Q4H PRN GT For Cough 03/14/19 13:00 04/11/19 16:59 Temazepam (Restoril) 15 mg HSPRN PRN GT Insomnia 03/14/19 13:00 03/19/19 16:59 Allergies: Coded Allergies: DIPHENHYDRAMINE (Verified Allergy, Unknown, 02/24/19) FLUPHENAZINE (Verified Allergy, Unknown, 02/24/19) Subjective open eyes, tracking, on vent Objective Last Vital Signs Date Time Temp Pulse Resp B/P (MAP) Pulse Ox O2 Delivery O2 Flow Rate FiO2 03/14/19 16:00 40 03/14/19 16:00 98.1 78 16 113/74 (87) 100 03/14/19 16:00 Mechanical Ventilator 03/12/19 15:30 40.0 Laboratory Tests Test 03/14/19 07:00 White Blood Count 8.1 K/UL (4.8-10.8) Red Blood Count 3.62 M/UL (4.20-5.40) L Hemoglobin 9.5 G/DL (12.0-16.0) L Hematocrit 32.1 % (37.0-47.0) L Mean Corpuscular Volume 89 FL (80-99) Mean Corpuscular Hemoglobin 26.2 PG (27.0-31.0) L Mean Corpuscular Hemoglobin Concent 29.5 G/DL (32.0-36.0) L Red Cell Distribution Width 19.5 % (11.6-14.8) H Platelet Count 483 K/UL (150-450) H Mean Platelet Volume 5.9 FL (6.5-10.1) L Neutrophils (%) (Auto) 70.2 % (45.0-75.0) Lymphocytes (%) (Auto) 20.7 % (20.0-45.0) Monocytes (%) (Auto) 5.0 % (1.0-10.0) Eosinophils (%) (Auto) 3.2 % (0.0-3.0) H Basophils (%) (Auto) 0.9 % (0.0-2.0) Erythrocyte Sedimentation Rate 63 MM/HR (0-30) H Prothrombin Time 11.2 SEC (9.30-11.50) Prothromb Time International Ratio 1.1 (0.9-1.1) Activated Partial Thromboplast Time 26 SEC (23-33) Sodium Level 140 MMOL/L (136-145) Potassium Level 3.9 MMOL/L (3.5-5.1) Chloride Level 104 MMOL/L (98-107) Carbon Dioxide Level 31 MMOL/L (21-32) Anion Gap 5 mmol/L (5-15) Blood Urea Nitrogen 20 mg/dL (7-18) H Creatinine 0.3 MG/DL (0.55-1.30) L Estimat Glomerular Filtration Rate > 60 mL/min (>60) Glucose Level 152 MG/DL (74-106) H Calcium Level 10.9 MG/DL (8.5-10.1) H Total Bilirubin 0.2 MG/DL (0.2-1.0) Aspartate Amino Transf (AST/SGOT) 15 U/L (15-37) Alanine Aminotransferase (ALT/SGPT) 29 U/L (12-78) Alkaline Phosphatase 94 U/L (46-116) C-Reactive Protein, Quantitative 0.7 mg/dL (0.00-0.90) Pro-B-Type Natriuretic Peptide 21 pg/mL (0-125) Total Protein 7.4 G/DL (6.4-8.2) Albumin 2.6 G/DL (3.4-5.0) L Globulin 4.8 g/dL Albumin/Globulin Ratio 0.5 (1.0-2.7) L Vancomycin Level Trough 8.2 ug/mL (5.0-12.0) Microbiology Date/Time Source Procedure Growth Status 03/13/19 01:47 Sputum Gram Stain Pending Resulted 03/13/19 01:47 Sputum Sputum Culture - Preliminary NORMAL UPPER RESPIRATORY ERIN AT 24 ... Resulted 03/12/19 13:40 Nasal Nares MRSA Culture - Final NO METHICILLIN RESISTANT STAPH AUREUS... Complete 03/12/19 13:40 Rectum VRE Culture - Final Enterococcus Faecalis - Vre Complete Intake and Output 03/13/19 03/14/19 18:59 06:59 Intake Total 635 ml 915 ml Output Total 500 ml Balance 135 ml 915 ml Free Water 60 ml 180 ml IV Total 165 ml 165 ml Tube Feeding 410 ml 570 ml Output Urine Total 500 ml Objective GENERAL: awake, opens her eyes, cannot follow commands. HEAD AND NECK: Pupils equal and react to light. Anicteric. NECK: Supple. No JVD. The patient has a tracheostomy site is intact. LUNGS: Good air entry. No wheezing or rhonchi. Decreased air in the bases. HEART: S1, S2. Distant heart sounds. No murmur or gallops. ABDOMEN: Soft, nondistended, nontender. PEG site is clean. EXTREMITIES: No cyanosis, clubbing, or edema. NEUROLOGIC: Examination very limited secondary to the patient's status. moving all the extremities spontaneously slowly. Assessment/Plan Assessment/Plan ASSESSMENT: 1. Worsening of shortness of breath, most likely secondary to pleural effusion. 2. Chronic vent dependent respiratory failure. 3. Dysphagia, status post PEG. 4. Hypertension. 5. Dyslipidemia. PLAN: Dr. Corrigan, Pulmonary Critical Care recommendation. Monitor laboratory. Broad-spectrum antibiotic: cefepime and vancomycin, nebulizer treatment PRN. DVT prophylaxis with heparin subcutaneous. Code status is Full Code. Mainor Newsome M.D. Mainor Newsome MD Mar 14, 2019 17:03
--- NOTE | 2019-03-14 19:14 | NUR ---
HAND-OFF: Report given to Ana Puentes RN. Patient awaiting pick-up for discharge
--- NOTE | 2019-03-14 20:00 | NUR ---
NURSE NOTES:Pt picked up by ambulance [phone] with [facility].
[2019-03-14] MEDS ORDERED: clonazePAM 0.5mg tab GT SCH (21:00)
--- NOTE | 2019-03-15 18:33 | Cardiology Report ---
APPROVED REPORT EKG Measurement Heart [id number] Sinus rhythm with short KS Otherwise normal ECG
--- NOTE | 2019-03-16 08:36 | Discharge Summary ---
Discharge Summary Discharge Summary _ DATE OF ADMISSION: 03/12/2019 DATE OF DISCHARGE: 03/14/2019 DISCHARGED BY: Dr. Newsome REASON FOR ADMISSION: 68 years old female with past medical history significant for hypertension, chronic ventilator dependent respiratory failure, tracheostomy status, dysphagia , G-tube feeding, dyslipidemia, presented from subacute nursing facility with worsening shortness of breath. Patient by herself was nonverbal with chronic debilitation and unable to provide any information. Upon evaluation in emergency department laboratory workup revealed no leukocytosis , anemia with hemoglobin 9.5 and hematocrit 32. BUN 25 creatinine 0.3 Troponin negative . EKG revealed sinus rhythm, no acute ischemic changes. Pro BNP 34 Albumin 2.7 . Calcium 11.1 Chest x-ray revealed left pleural effusion with borderline cardiomegaly. Patient was admitted for further management CONSULTANTS: pulmonary Dr. Corrigan ID specialist Dr. Bean proofsheet corrector Dr. Lizarraga surgery Dr. Nunes [place] [facility] COURSE: Patient admitted to direct observational unit. Integrated Logistics Programs Director closely followed. Patient initially started on empiric antibiotics. Ventilator settings titrated as needed. Ventilator support and tracheostomy care provided. Pulmonary toilet provided. DVT prophylaxis provided. Sputum culture was negative. Infectious disease specialist followed. Per infectious disease specialist, no evidence of active infection at this time. Patient remained afebrile, with no leukocytosis. ID specialist recommended to monitor patient off antibiotics. Dobie Man followed for hypercalcemia. Hypercalcemia corrected for low albumin was 12. Etiology of hypercalcemia was unknown at this time. Patient received Aredia while in the hospital. Calcium trending down. Monitor calcium at the facility. If calcium continue to be elevated , outpatient hypercalcemia workup recommended Gastric support provided. Patient was hydrated. Antihypertensive medication stopped since blood pressure was low. Hemoglobin and hematocrit were closely monitored with goal to keep hemoglobin above 7. Hemoglobin and hematocrit remained at baseline. Prior to discharge hemoglobin 9.5, hematocrit 32.1. Wound care for sacral decubitus ulcer stage III present on admission, provided as per general surgeon recommendation. Continue wound care at the facility. Strict aspiration precaution maintained. Nutritional recommendation regarding tube feeding type and recommended rate along with protein supplements implemented in plan of care to improve nutritional status. Patient tolerated G-tube feeding. Supportive care provided. Bowel regimen instituted. Patient clinically stabilized. Initial shortness of breath was likely due to left pleural effusion , and improved. Follow-up with chest x-ray as outpatient. Patient was subsequently discharged to subacute half-way facility for continuation of care. FINAL DIAGNOSES: Acute and chronic ventilator dependent respiratory failure Left pleural effusion Dysphagia, feeding by G-tube Hypercalcemia Hyperlipidemia Anemia Sacral decubitus ulcer stage III present on admission DISCHARGE MEDICATIONS: See Medication Reconciliation list. DISCHARGE INSTRUCTIONS: Patient was discharged to subacute half-way facility. Follow up with medical doctor at the facility. I have been assigned to dictate discharge summary for this account. I was not involved in the patient's management. April Singletary NP Mar 16, 2019 08:36
--- NOTE | 2019-03-16 09:06 | NUR ---
*-* INSURANCE *-* DISCHARGE SUMMARY HAS BEEN FAXED TO: JADYN HOPE F:[phone]
== END 2019-03-14 20:33 | DRG 133 ==
LOC: EDBD 12:01 → EDUNIT# 12:01 → EDBEDREQ 12:14 → EMR 12:26 → 2W 13:32 → EDBEDREQ 14:49 → OBSVTOIN 15:15 → UNDOADMOB 15:35 → 2W 15:35
PROC: 5A1945Z Respiratory Ventilation, 24-96 Consecutive Hours (ICD-10-PCS; principal; 2019-03-12)
DX: J96.20 Acute and chronic respiratory failure, unspecified whether with hypoxia or hypercapnia (principal); Z99.11 Dependence on respirator [ventilator] status; L89.153 Pressure ulcer of sacral region, stage 3; Z43.0 Encounter for attention to tracheostomy; J90 Pleural effusion, not elsewhere classified; R13.10 Dysphagia, unspecified; Z99.81 Dependence on supplemental oxygen; Z43.1 Encounter for attention to gastrostomy; E83.52 Hypercalcemia; Z16.24 Resistance to multiple antibiotics; Z16.39 Resistance to other specified antimicrobial drug; Z93.1 Gastrostomy status; Z88.8 Allergy status to other drugs, medicaments and biological substances; I10 Essential (primary) hypertension; E78.5 Hyperlipidemia, unspecified; F25.9 Schizoaffective disorder, unspecified; E88.09 Other disorders of plasma-protein metabolism, not elsewhere classified
CPT/HCPCS: 36415; 71045; 80053; 80069; 80202; 82550; 82553; 83690; 83880; 84484; 85025; 85610; 85651; 85730; 86140; 87070; 87081; 87205; 93005; 94002; 94003; 94664; 99285; J2430

== ENCOUNTER 2019-05-19 13:09 | Inpatient (IN) | payer OTHER ==
[~2019-05-19] VITALS: Ht 160 cm; Wt 70.8 kg
[2019-05-19] VITALS (9 sets, daily range): BP systolic 68–128; BP diastolic 43–69
--- NOTE | 2019-05-19 13:01 | NUR ---
ED Nurse Note: PT BROUGHT IN BY R26 FROM [facility] DUE TO LOW O2 SATURATION. PER EMS, FACILITY WAS ONLY ABLE TO RAISE O2 SAT TO 90%. PT IS VENT-DEPENDENT AND HAS A TRACH. RT AT BEDSIDE. AT BEDSIDE, RR14, O2 SAT 96% ON VENT. PT PRESENTS WITH GTUBE TO MEDIAL UPPER ABDOMEN. PT AOX0, NONVERBAL WHICH IS BASELINE PER EMS. VENT SETTINGS: AC 14 TV 420 FiO2 35% PEEP 5
[~2019-05-19 13:09] MED LIST changes: +HEPARIN SO5000 UNIT2 SUBQ
--- NOTE | 2019-05-19 13:09 | NUR ---
ED Nurse Note: SKIN ASSESSMENT: DEEP OPEN WOUND NOTED TO COCCYX AREA. PRESSURE ULCERS TO BILATERAL EARS AND LEFT HEEL. PHOTOS UPLOADED TO EMR.
[2019-05-19] MEDS ORDERED: Vancomycin 1 GM in NS 275 ML IV ONE (13:30)
[2019-05-19] MEDS ORDERED: Cefepime HCl 2 GM in NS 110 ML IV SCH (13:30)
[2019-05-19 14:29] LABS: HEMATOCRIT 40.7 % (37.0-47.0); HEMOGLOBIN 11.8 G/DL (12.0-16.0); MEAN CORPUSCULAR VOLUME 90 FL (80-99); PLATELET COUNT 407 K/UL (150-450); RED BLOOD COUNT 4.54 M/UL (4.20-5.40); WHITE BLOOD COUNT 19.4 K/UL (4.8-10.8)
--- NOTE | 2019-05-19 14:36 | NUR ---
ED Nurse Note: PT REMAINS SLEEPING IN BED IN NAD. NEW VENT SETTINGS: AC 20 TV 420 FiO2 80% PEEP 5
[2019-05-19 14:55] LABS: ALANINE AMINOTRANSFERASE 123 U/L (12-78); ALBUMIN 2.1 G/DL (3.4-5.0); ALBUMIN/GLOBULIN RATIO 0.4 (1.0-2.7); ALKALINE PHOSPHATASE 182 U/L (46-116); ANION GAP 8 mmol/L (5-15); ASPARTATE AMINO TRANSFERASE 73 U/L (15-37); BILIRUBIN,TOTAL 0.2 MG/DL (0.2-1.0); BLOOD UREA NITROGEN 61 mg/dL (7-18); CARBON DIOXIDE 29 MMOL/L (21-32); CHLORIDE 110 MMOL/L (98-107); CKMB 3.1 NG/ML (0.0-3.6); CREATINE KINASE 92 U/L (26-308); CREATININE 0.4 MG/DL (0.55-1.30); SODIUM 147 MMOL/L (136-145)
[2019-05-19 14:59] LABS: CALCIUM 13.1 MG/DL (8.5-10.1)
[2019-05-19 15:00] LABS: POTASSIUM 5.6 MMOL/L (3.5-5.1)
[2019-05-19] MEDS ORDERED: Morphine Sulfate 4mg/ml Inj (IV USE ONLY) IVP PRN (15:30)
[2019-05-19] MEDS ORDERED: Miralax 17gm pkt ORAL PRN (15:30)
[2019-05-19] MEDS ORDERED: Albuterol/Ipratropium 3ml neb HHN PRN (15:30)
[2019-05-19] MEDS ORDERED: LORazepam Inj 2mg/ml 1ml IV PRN (15:30)
[2019-05-19 15:44] LABS: APPEARANCE,URINE SLIGHTLY CLOUDY; BILIRUBIN, URINE NEGATIVE (NEGATIVE); COLOR,URINE PALE YELLOW; GLUCOSE, URINE (UA) 1+ (NEGATIVE); KETONES,URINE NEGATIVE (NEGATIVE); LEUKOCYTE ESTERASE ,URINE 2+ (NEGATIVE); NITRITE,URINE NEGATIVE (NEGATIVE); PH,URINE 5 (4.5-8.0); PROTEIN,URINE 2+ (NEGATIVE); UROBILINOGEN,URINE NORMAL MG/DL (0.0-1.0)
--- NOTE | 2019-05-19 15:54 | Emergency Room Report ---
History of Present Illness General Chief Complaint: Dyspnea/Respdistress Source: Medical Record, EMS (Rosendo Gonzalez MD) Present Illness HPI Patient is a 69-year-old female brought in by EMS after increased respiratory distress. Patient was noted to have prior history of ventilator dependence. She had prior history of multiple decubitus ulcers.Patient was noted to be nonverbal and bedridden. She is poorly responsive.Patient was noted to have multiple medical problems. Patient was noted to be tracheostomy dependent. (Rosendo Gonzalez MD) Allergies: Coded Allergies: DIPHENHYDRAMINE (Verified Allergy, Unknown, 02/24/19) FLUPHENAZINE (Verified Allergy, Unknown, 02/24/19) Patient History Past Medical History: see triage record, old chart reviewed Reviewed Nursing Documentation: PMH: Agreed; PSxH: Agreed (Rosendo Gonzalez MD) Nursing Documentation-PMH Past Medical History: No History, Except For Hx Hypertension: Yes - Hyperlipidemia (Rosendo Gonzalez MD) Review of Systems All Other Systems: limited - mental status (Rosendo Gonzalez MD) Physical Exam Vital Signs Date Time Temp Pulse Resp B/P (MAP) Pulse Ox O2 Delivery O2 Flow Rate FiO2 05/19/19 12:52 96.3 102 18 128/64 (85) 90 Mechanical Ventilator 6.0 05/19/19 13:01 40 General Appearance: severe distress, thin, Chronically Ill ENT: dry mucus membranes Neck: limited range of motion Respiratory: lungs clear, normal breath sounds Cardiovascular #1: tachycardia Gastrointestinal: non tender, soft Genitourinary: normal inspection Musculoskeletal: other - multiple pressure sores Neurologic: motor weakness, other - poor alertness Skin: other - multiple decubitus ulcer (Rosendo Gonzalez MD) Procedures Critical Care Time Critical Care Time 50 minutes for multiple re-evaluations of her presentation findings concerning for possible cardiac arrest and not including any procedural time (Aure Sherman DO) Central Line Central Line : Consent: Emergent Central Line Lumen: triple Maximal Sterile Barrier Tech: yes cap, yes mask, yes sterile gown, yes sterile gloves, yes large sterile sheet, yes hand hygiene, yes chlorhexidine prep Central Line Postion: femoral (R) Anesthesia: Lidocaine cc's of anesthesia: 4 Complications: none Central Line Post Position: sutured Attempts: One Patient Tolerated: Well Complications: None (Aure Sherman DO) Medical Decision Making Diagnostic Impression: Primary Impression: Sepsis Additional Impressions: Acute and chronic respiratory failure Decubitus skin ulcer Urinary tract infection Hypercalcemia ER Course Patient presented for shortness of breath. Differential diagnosis include was not limited to pneumonia, acidosis, sepsis, ongestive heart failure among others. Because of complexity of patient's case laboratory testing and imaging studies were ordered.Patient was given IV fluids as well as IV antibiotics. She was started on mechanical ventilator and was noted to have ABG with initial acidosis. Patient was noted to have some initial tachycardia. Patient started on IV fluids and will be admitted for further evaluation and treatment of acute respiratory failure.. Labs Test 05/19/19 13:26 05/19/19 14:00 05/19/19 15:30 Arterial Blood pH 7.308 (7.350-7.450) Arterial Blood Partial Pressure CO2 57.7 mmHg (35.0-45.0) Arterial Blood Partial Pressure O2 62.8 mmHg (75.0-100.0) Arterial Blood HCO3 28.3 mmol/L (22.0-26.0) Arterial Blood Oxygen Saturation 90.0 % (95-100) Arterial Blood Base Excess 1.0 (-2-2) Tristan Test Positive White Blood Count 19.4 K/UL (4.8-10.8) Red Blood Count 4.54 M/UL (4.20-5.40) Hemoglobin 11.8 G/DL (12.0-16.0) Hematocrit 40.7 % (37.0-47.0) Mean Corpuscular Volume 90 FL (80-99) Mean Corpuscular Hemoglobin 26.1 PG (27.0-31.0) Mean Corpuscular Hemoglobin Concent 29.1 G/DL (32.0-36.0) Red Cell Distribution Width 18.0 % (11.6-14.8) Platelet Count 407 K/UL (150-450) Mean Platelet Volume 6.1 FL (6.5-10.1) Neutrophils (%) (Auto) % (45.0-75.0) Lymphocytes (%) (Auto) % (20.0-45.0) Monocytes (%) (Auto) % (1.0-10.0) Eosinophils (%) (Auto) % (0.0-3.0) Basophils (%) (Auto) % (0.0-2.0) Differential Total Cells Counted 100 Neutrophils % (Manual) 90 % (45-75) Lymphocytes % (Manual) 6 % (20-45) Monocytes % (Manual) 3 % (1-10) Eosinophils % (Manual) 1 % (0-3) Basophils % (Manual) 0 % (0-2) Band Neutrophils 0 % (0-8) Nucleated Red Blood Cells 1 /100 WBC Platelet Estimate Adequate Platelet Morphology Normal Red Blood Cell Morphology Hypochromasia 1+ Anisocytosis 2+ Sodium Level 147 MMOL/L (136-145) Potassium Level 5.6 MMOL/L (3.5-5.1) Chloride Level 110 MMOL/L (98-107) Carbon Dioxide Level 29 MMOL/L (21-32) Anion Gap 8 mmol/L (5-15) Blood Urea Nitrogen 61 mg/dL (7-18) Creatinine 0.4 MG/DL (0.55-1.30) Estimat Glomerular Filtration Rate > 60 mL/min (>60) Glucose Level 456 MG/DL (74-106) Lactic Acid Level 1.60 mmol/L (0.4-2.0) Calcium Level 13.1 MG/DL (8.5-10.1) Total Bilirubin 0.2 MG/DL (0.2-1.0) Aspartate Amino Transf (AST/SGOT) 73 U/L (15-37) Alanine Aminotransferase (ALT/SGPT) 123 U/L (12-78) Alkaline Phosphatase 182 U/L (46-116) Total Creatine Kinase 92 U/L (26-308) Creatine Kinase MB 3.1 NG/ML (0.0-3.6) Creatine Kinase MB Relative Index 3.3 Troponin I 0.045 ng/mL (0.000-0.056) Total Protein 7.9 G/DL (6.4-8.2) Albumin 2.1 G/DL (3.4-5.0) Globulin 5.8 g/dL Albumin/Globulin Ratio 0.4 (1.0-2.7) Urine Color Pale yellow Urine Appearance Slightly cloudy Urine pH 5 (4.5-8.0) Urine Specific [place] 1.010 (1.005-1.035) Urine Protein 2+ (NEGATIVE) Urine Glucose (UA) 1+ (NEGATIVE) Urine Ketones Negative (NEGATIVE) Urine Blood 3+ (NEGATIVE) Urine Nitrite Negative (NEGATIVE) Urine Bilirubin Negative (NEGATIVE) Urine Urobilinogen Normal MG/DL (0.0-1.0) Urine Leukocyte Esterase 2+ (NEGATIVE) Urine RBC 2-4 /HPF (0 - 2) Urine WBC 15-20 /HPF (0 - 2) Urine Squamous Epithelial Cells Few /LPF (NONE/OCC) Urine Bacteria Many /HPF (NONE) (Rosendo Gonzalez MD) ER Course Please note that I was called by the nursing to bedside for progressively worsening blood pressure Upon evaluation the patient it appears that the patient has left IV infiltrated with left arm swelling, and mild edema from the normal saline Central line was placed with note above in the right femoral vein Patient remains appropriate hemodynamically and will continue as ICU admission (Aure Sherman DO) EKG Diagnostic Results Rate: tachycardiac Rhythm: NSR ST Segments: no acute changes (Rosendo Gonzalez MD) Last Vital Signs Date Time Temp Pulse Resp B/P (MAP) Pulse Ox O2 Delivery O2 Flow Rate FiO2 05/19/19 14:35 108 22 103/55 100 Trach Collar 80 05/19/19 12:52 96.3 6.0 Status: unchanged (Rosendo Gonzalez MD) Disposition: ADMITTED INPATIENT Condition: Critical Referrals: Bassem Bruce MD (PCP) Rosendo Gonzalez MD May 19, 2019 15:54 Aure Sherman DO May 19, 2019 18:03
--- NOTE | 2019-05-19 16:19 | Diagnostic Imaging Report ---
Indication: Dyspnea Technique: One view of the chest Comparison: March 14, 2019 Findings: Interim increase in left lung volume loss. Increased airspace disease is seen in the perihilar region of the left lung. The left hemidiaphragm is somewhat obscured, pleural fluid possible. Tracheostomy is again demonstrated. Right lung and pleural space are clear Impression: Increased left lung volume loss and parenchymal consolidation, since prior study 03/14/2019
--- NOTE | 2019-05-19 17:28 | NUR ---
ED Nurse Note: ICU CALLED FOR PT TRANSFER. DB LICEA NOT READY. SHE WILL CALL BACK IN 10 MINUTES.
[2019-05-19] MEDS ORDERED: Lidocaine 1% MPF 10mg/ml 5ml ONE (17:35)
--- NOTE | 2019-05-19 17:43 | NUR ---
ED Nurse Note: ICU CALLED FOR PT TRANSFER. REPORT GIVEN TO DB LICEA. DB LICEA READY TO ACCEPT PT. PT AWAITING CENTRAL LINE PLACEMENT BY DR CISNEROS AND THEN WILL BE SENT TO ICU.
[2019-05-19] MEDS ORDERED: Lidocaine 1% MPF 10mg/ml 5ml INJ ONE (17:45)
--- NOTE | 2019-05-19 17:59 | NUR ---
ED Nurse Note: RIGHT FEMORAL TRIPLE LUMEN CENTRAL LINE PLACED BY DR CISNEROS. PT TOLERATED WELL. PT TAKEN UP TO ICU VIA GURNEY ON CARDIAC MONTIOR WITH ALL BELONGINGS ACCOMPANIED BY PRIMARY RN AND EMT. VSS.
--- NOTE | 2019-05-19 19:10 | NUR ---
RESPIRATORY NOTE: Patient received mechanically ventilated on PB 840 with current ordered vent settings. Patient has trach size 7.0 Portex cuffed that is secured with trach tie and guard. Vent alarms are functional and audible. There is an ambu bag available at the bedside and the vent is connected to a red outlet. Will continue to monitor.
--- NOTE | 2019-05-19 19:35 | NUR ---
HAND-OFF: Report given to Emilee ACE.
--- NOTE | 2019-05-19 20:00 | NUR ---
NURSE NOTES: pt admit obtunded no movement all upper and extremities portex 7 trach -vent ac16 tv 600 fio2 70 iv infusing rt femoral cath dressing dry and intact wound care to sacral rt and lt ear and lt heel reposition and suction
[2019-05-19] MEDS: Heparin 5000 units/ml inj SUBQ SCH (21:00)
[2019-05-19 21:14] LABS: CREATINE KINASE 70 U/L (26-308)
--- NOTE | 2019-05-19 23:11 | Diagnostic Imaging Report ---
APPROVED REPORT CPT Code: 56792 Present Symptoms Comments: bilateral legs pain. BILATERAL: Imaging reveals a patent deep venous system bilaterally. There is no evidence of thrombus within the femoral, popliteal or tibial segments. The greater saphenous veins are also within normal limits. Doppler indicates normal spontaneous flow within these segments.
[2019-05-20] VITALS (53 sets, daily range): BP systolic 85–115; BP diastolic 40–85
--- NOTE | 2019-05-20 | NUR ---
NURSE NOTES: pt 90-94 sbp levo drip not reposition and suction infusing femoral
--- NOTE | 2019-05-20 02:00 | NUR ---
NURSE NOTES: bp 77/45 levo drip started at 6mcg /min
[2019-05-20] MEDS: DOPamine 400mg/250ml 250 ML IV SCH ×2 (02:20→18:18)
[2019-05-20] MEDS: Vancomycin 750mg/NS 275ml IVPB SCH ×4 (02:21→13:45)
--- NOTE | 2019-05-20 04:00 | NUR ---
NURSE NOTES: comp bed bath oral care and back care
[2019-05-20 05:38] LABS: HEMOGLOBIN 9.3 G/DL (12.0-16.0); MEAN CORPUSCULAR VOLUME 86 FL (80-99); PLATELET COUNT 414 K/UL (150-450); RED BLOOD COUNT 3.46 M/UL (4.20-5.40); WHITE BLOOD COUNT 19.7 K/UL (4.8-10.8)
[2019-05-20 05:53] LABS: ALBUMIN 1.8 G/DL (3.4-5.0); ANION GAP 10 mmol/L (5-15); BLOOD UREA NITROGEN 29 mg/dL (7-18); CALCIUM 11.6 MG/DL (8.5-10.1); CARBON DIOXIDE 25 MMOL/L (21-32); CHLORIDE 120 MMOL/L (98-107); CREATININE 0.3 MG/DL (0.55-1.30); PHOSPHORUS 1.3 MG/DL (2.5-4.9); SODIUM 155 MMOL/L (136-145)
--- NOTE | 2019-05-20 06:00 | NUR ---
NURSE NOTES: pt obtunded 0n 6mcg/min levo drip bp 100/5o hr 75
--- NOTE | 2019-05-20 07:15 | NUR ---
NURSE NOTES: Received pt from DB Hebert. Pt is obtunded, opens eyes spontaneously but does not follow commands. Portex 7.0 trach to vent, AC 16/TV 600, Fio2 70%, PEEP 5, even and unlabored breathing. Rhonchi heard bilateral b/s. PEG clamped and NPO. Will start GTF as ordered. Right femoral TLC running Dopamine @6mcg/kg/hr and 1/2NS@150ml/hr. Purwick in place, draining clear straw colored urine. Sacral stage 4 with malodorous, necrosis with slough noted. Stage 2 bilateral ears and left heel unstageable dressing clean and intact. Bed locked, alarmed and in lowest position.
--- NOTE | 2019-05-20 07:20 | NUR ---
NURSE NOTES: Notified Dr. Corrigan regarding potassium=3.0, hxdaft=575. Awaiting for call back.
--- NOTE | 2019-05-20 07:36 | NUR ---
HAND-OFF: Report given to raquel matamoros using sbar .
[2019-05-20] MEDS: Heparin 5000 units/ml inj SUBQ SCH ×2 (09:24→20:35)
--- NOTE | 2019-05-20 10:12 | Diagnostic Imaging Report ---
Indication: Acute renal failure Technique: Grayscale and duplex images of the kidneys, retroperitoneum, and bladder were obtained. Comparison: Abdominal sonogram dated 02/28/2019 Findings: Right kidney measures 12.7 cm in length. Left kidney measures 12.3 cm in length. Both kidneys demonstrate normal echogenicity. No hydronephrosis. There are small cysts bilaterally. Normal inferior vena cava. Bladder is normal. Incidentally noted is a large gallstone within the gallbladder lumen Impression: No evidence of hydronephrosis Bilateral renal cysts incidentally noted Cholelithiasis.
--- NOTE | 2019-05-20 10:19 | NUR ---
NURSE NOTES: Wound care nurse at bedside. Dressing for sacral, left heel, bilateral ears applied. Bladder scan done, 350ml residual noted. Notified Dr. Corrigan, received orders to insert alberto catheter for retention and sacral wound healing. Received orders for 40meq Kdur via GT x1.
--- NOTE | 2019-05-20 10:48 | Cardiac Electrophysiology PN ---
Subjective Subjective [id number] Objective Last 24 Hour Vital Signs Date Time Temp Pulse Resp B/P (MAP) Pulse Ox O2 Delivery O2 Flow Rate FiO2 05/20/19 09:12 78 16 70 05/20/19 07:51 77 16 70 05/20/19 06:00 82 16 95/54 (68) 100 05/20/19 05:30 82 16 95/54 (68) 100 05/20/19 05:00 103/54 05/20/19 05:00 87 16 70 05/20/19 05:00 82 16 95/54 (68) 100 05/20/19 04:45 82 16 95/54 (68) 100 05/20/19 04:30 82 16 110/50 (70) 100 05/20/19 04:15 82 16 102/54 (70) 100 05/20/19 04:00 82 16 100/55 (70) 100 05/20/19 04:00 70 05/20/19 04:00 100/54 05/20/19 03:52 70 05/20/19 03:49 79 05/20/19 03:45 82 16 95/54 (68) 100 05/20/19 03:30 82 16 105/54 (71) 100 05/20/19 03:15 82 16 100/55 (70) 100 05/20/19 03:00 82 16 95/54 (68) 100 05/20/19 03:00 94/50 05/20/19 02:45 80 18 115/80 (92) 98 05/20/19 02:36 81 20 110/80 (90) 100 05/20/19 02:36 84 17 113/76 (88) 100 05/20/19 02:30 92 16 115/85 (95) 100 05/20/19 02:20 77/45 05/20/19 02:15 90 22 113/50 (71) 100 05/20/19 02:00 92 20 100/54 (69) 94 05/20/19 02:00 88 16 70 05/20/19 01:45 94 19 85/40 (55) 92 05/20/19 01:30 94 20 87/52 (64) 94 05/20/19 01:15 82 22 92/60 (71) 96 05/20/19 01:00 82 20 87/52 (64) 94 05/20/19 00:45 77 16 70 05/20/19 00:00 Mechanical Ventilator 70.0 05/20/19 00:00 81 05/20/19 00:00 98.4 95 19 90/45 (60) 92 05/20/19 00:00 70 05/19/19 23:00 95 19 94/53 (67) 92 05/19/19 22:52 74 16 80 05/19/19 22:00 86 19 94/53 (67) 92 05/19/19 21:13 78 17 80 05/19/19 21:00 85 19 94/53 (67) 92 05/19/19 20:00 70 05/19/19 20:00 85 05/19/19 20:00 97.4 95 19 94/53 (67) 92 05/19/19 20:00 Mechanical Ventilator 70.0 05/19/19 19:06 91 18 80 05/19/19 19:00 95 19 94/53 (67) 92 05/19/19 18:41 Mechanical Ventilator 05/19/19 18:00 97.7 98 17 68/43 (51) 95 05/19/19 18:00 96.5 87 15 92/55 100 Trach Collar 80 05/19/19 16:57 92 16 50 05/19/19 16:00 100 17 50 05/19/19 15:53 96.3 100 21 95/61 99 Trach Collar 80 05/19/19 14:35 108 22 103/55 100 Trach Collar 80 05/19/19 14:34 108 20 80 05/19/19 13:05 35 05/19/19 13:03 100 14 128/69 96 Trach Collar 35 05/19/19 13:03 100 14 Trach Collar 35 05/19/19 13:01 101 17 40 05/19/19 12:52 96.3 102 18 128/64 (85) 90 Mechanical Ventilator 6.0 Intake and Output 05/19/19 05/20/19 19:00 07:00 Intake Total 1385 ml 1223.166 ml Output Total 0 ml 560 ml Balance 1385 ml 663.166 ml IV Total 1385 ml 1223.166 ml Output Urine Total 0 ml 560 ml # Voids 1 Laboratory Tests Test 05/19/19 13:26 05/19/19 14:00 05/19/19 15:02 05/19/19 15:30 Arterial Blood pH 7.308 (7.350-7.450) Arterial Blood Partial Pressure CO2 57.7 mmHg (35.0-45.0) *H Arterial Blood Partial Pressure O2 62.8 mmHg (75.0-100.0) L Arterial Blood HCO3 28.3 mmol/L (22.0-26.0) H Arterial Blood Oxygen Saturation 90.0 % (95-100) L Arterial Blood Base Excess 1.0 (-2-2) Tristan Test Positive White Blood Count 19.4 K/UL (4.8-10.8) H Red Blood Count 4.54 M/UL (4.20-5.40) Hemoglobin 11.8 G/DL (12.0-16.0) L Hematocrit 40.7 % (37.0-47.0) Mean Corpuscular Volume 90 FL (80-99) Mean Corpuscular Hemoglobin 26.1 PG (27.0-31.0) L Mean Corpuscular Hemoglobin Concent 29.1 G/DL (32.0-36.0) L Red Cell Distribution Width 18.0 % (11.6-14.8) H Platelet Count 407 K/UL (150-450) Mean Platelet Volume 6.1 FL (6.5-10.1) L Neutrophils (%) (Auto) % (45.0-75.0) Lymphocytes (%) (Auto) % (20.0-45.0) Monocytes (%) (Auto) % (1.0-10.0) Eosinophils (%) (Auto) % (0.0-3.0) Basophils (%) (Auto) % (0.0-2.0) Differential Total Cells Counted 100 Neutrophils % (Manual) 90 % (45-75) H Lymphocytes % (Manual) 6 % (20-45) L Monocytes % (Manual) 3 % (1-10) Eosinophils % (Manual) 1 % (0-3) Basophils % (Manual) 0 % (0-2) Band Neutrophils 0 % (0-8) Nucleated Red Blood Cells 1 /100 WBC Platelet Estimate Adequate Platelet Morphology Normal Red Blood Cell Morphology Hypochromasia 1+ Anisocytosis 2+ Sodium Level 147 MMOL/L (136-145) H Potassium Level 5.6 MMOL/L (3.5-5.1) H Chloride Level 110 MMOL/L (98-107) H Carbon Dioxide Level 29 MMOL/L (21-32) Anion Gap 8 mmol/L (5-15) Blood Urea Nitrogen 61 mg/dL (7-18) H Creatinine 0.4 MG/DL (0.55-1.30) L Estimat Glomerular Filtration Rate > 60 mL/min (>60) Glucose Level 456 MG/DL (74-106) H Lactic Acid Level 1.60 mmol/L (0.4-2.0) Calcium Level 13.1 MG/DL (8.5-10.1) *H Total Bilirubin 0.2 MG/DL (0.2-1.0) Aspartate Amino Transf (AST/SGOT) 73 U/L (15-37) H Alanine Aminotransferase (ALT/SGPT) 123 U/L (12-78) H Alkaline Phosphatase 182 U/L (46-116) H Total Creatine Kinase 92 U/L (26-308) Creatine Kinase MB 3.1 NG/ML (0.0-3.6) Creatine Kinase MB Relative Index 3.3 Troponin I 0.045 ng/mL (0.000-0.056) Total Protein 7.9 G/DL (6.4-8.2) Albumin 2.1 G/DL (3.4-5.0) L Globulin 5.8 g/dL Albumin/Globulin Ratio 0.4 (1.0-2.7) L Urine Eosinophils Few seen (NONE SEEN) Urine Osmolality 430 mOsm/kg (429-449) Urine Random Creatinine Pending Urine Random Microalbumin Pending Urine Random Sodium < 20 mmol/L (20-110) L Urine Microalbumin/Creatinine Ratio Pending Urine Color Pale yellow Urine Appearance Slightly cloudy Urine pH 5 (4.5-8.0) Urine Specific [place] 1.010 (1.005-1.035) Urine Protein 2+ (NEGATIVE) H Urine Glucose (UA) 1+ (NEGATIVE) H Urine Ketones Negative (NEGATIVE) Urine Blood 3+ (NEGATIVE) H Urine Nitrite Negative (NEGATIVE) Urine Bilirubin Negative (NEGATIVE) Urine Urobilinogen Normal MG/DL (0.0-1.0) Urine Leukocyte Esterase 2+ (NEGATIVE) H Urine RBC 2-4 /HPF (0 - 2) H Urine WBC 15-20 /HPF (0 - 2) H Urine Squamous Epithelial Cells Few /LPF (NONE/OCC) Urine Bacteria Many /HPF (NONE) H Test 05/19/19 20:45 05/20/19 04:30 Uric Acid 6.9 MG/DL (2.6-7.2) Total Creatine Kinase 70 U/L (26-308) White Blood Count 19.7 K/UL (4.8-10.8) H Red Blood Count 3.46 M/UL (4.20-5.40) L Hemoglobin 9.3 G/DL (12.0-16.0) L Hematocrit 30.0 % (37.0-47.0) L Mean Corpuscular Volume 86 FL (80-99) Mean Corpuscular Hemoglobin 26.8 PG (27.0-31.0) L Mean Corpuscular Hemoglobin Concent 31.0 G/DL (32.0-36.0) L Red Cell Distribution Width 18.0 % (11.6-14.8) H Platelet Count 414 K/UL (150-450) Mean Platelet Volume 6.6 FL (6.5-10.1) Neutrophils (%) (Auto) % (45.0-75.0) Lymphocytes (%) (Auto) % (20.0-45.0) Monocytes (%) (Auto) % (1.0-10.0) Eosinophils (%) (Auto) % (0.0-3.0) Basophils (%) (Auto) % (0.0-2.0) Differential Total Cells Counted 100 Neutrophils % (Manual) 94 % (45-75) H Lymphocytes % (Manual) 6 % (20-45) L Monocytes % (Manual) 0 % (1-10) L Eosinophils % (Manual) 0 % (0-3) Basophils % (Manual) 0 % (0-2) Band Neutrophils 0 % (0-8) Platelet Estimate Adequate Platelet Morphology Normal Hypochromasia 1+ Anisocytosis 1+ Sodium Level 155 MMOL/L (136-145) H Potassium Level 3.0 MMOL/L (3.5-5.1) L Chloride Level 120 MMOL/L (98-107) H Carbon Dioxide Level 25 MMOL/L (21-32) Anion Gap 10 mmol/L (5-15) Blood Urea Nitrogen 29 mg/dL (7-18) H Creatinine 0.3 MG/DL (0.55-1.30) L Estimat Glomerular Filtration Rate > 60 mL/min (>60) Glucose Level 242 MG/DL (74-106) #H Calcium Level 11.6 MG/DL (8.5-10.1) H Phosphorus Level 1.3 MG/DL (2.5-4.9) L Albumin 1.8 G/DL (3.4-5.0) L Microbiology Date/Time Source Procedure Growth Status 05/19/19 15:30 Urine,Clean Catch Urine Culture - Preliminary Resulted Niall Levy MD May 20, 2019 10:48
--- NOTE | 2019-05-20 11:11 | Consultation ---
History of Present Illness General Date patient seen: May 20, 2019 Chief Complaint: Dyspnea/Respdistress Present Illness HPI 69-year-old female with hx of sudden cardiac arrest and anoxic encephalopathy, COPD, chronic trach, PEG, brought in by EMS with chief complaint of rapid respiratory rate. Pt was severely hypotensive in ER and was started on IV fluids and later on on Dopamine. She was found to be in multiorgan failure with ATN and admitted to ICU for further management. Allergies: Coded Allergies: DIPHENHYDRAMINE (Verified Allergy, Unknown, 02/24/19) FLUPHENAZINE (Verified Allergy, Unknown, 02/24/19) Medication History Scheduled Amlodipine Besylate (Norvasc), 5 MG GT DAILY, (Reported) Ascorbic Acid* (Vitamin C*), 500 MG GT DAILY, (Reported) Atorvastatin Calcium* (Lipitor*), 10 MG GT DAILY, (Reported) Clonazepam* (Klonopin*), 0.5 MG ORAL Q12HR, (Reported) Docusate Sodium* (Colace*), 100 MG GT DAILY, (Reported) Enoxaparin* (Lovenox*), 40 MG SUBQ DAILY, (Reported) Famotidine (Famotidine), 20 MG GT DAILY, (Reported) Heparin Sod (Porcine) (Heparin Sodium*), 5,000 UNITS SUBQ EVERY 12 HOURS, ( Reported) Multivitamins* (Multivitamins*), 1 TAB GT DAILY, (Reported) Zinc Sulfate (Zinc Sulfate*), 220 MG GT DAILY, (Reported) Scheduled PRN Acetaminophen (Tylenol), 325 MG GT Q4HR PRN for Prn Pain/Headache/Temp > 101, ( Reported) Patient History Healthcare decision maker N Resuscitation status Full Code Advanced Directive on File No Past Medical/Surgical History Past Medical/Surgical History: (1) Feeding by G-tube (2) Chronic respiratory failure (3) Chronic anoxic encephalopathy (4) History of sudden cardiac arrest Review of Systems All Other Systems: negative except mentioned in HPI Physical Exam General Appearance: cachetic Lines, tubes and drains: peripheral HEENT: normocephalic, atraumatic Neck: non-tender, normal alignment Respiratory/Chest: chest wall non-tender, lungs clear Breasts: no masses Cardiovascular/Chest: normal peripheral pulses Abdomen: normal bowel sounds, non tender Genitourinary/Rectal: normal genital exam, normal rectal exam Extremities: normal range of motion Skin Exam: normal pigmentation Last 24 Hour Vital Signs Date Time Temp Pulse Resp B/P (MAP) Pulse Ox O2 Delivery O2 Flow Rate FiO2 05/20/19 09:12 78 16 70 05/20/19 08:00 70 05/20/19 07:51 77 16 70 05/20/19 06:00 82 16 95/54 (68) 100 05/20/19 05:30 82 16 95/54 (68) 100 05/20/19 05:00 103/54 05/20/19 05:00 87 16 70 05/20/19 05:00 82 16 95/54 (68) 100 05/20/19 04:45 82 16 95/54 (68) 100 05/20/19 04:30 82 16 110/50 (70) 100 05/20/19 04:15 82 16 102/54 (70) 100 05/20/19 04:00 82 16 100/55 (70) 100 05/20/19 04:00 70 05/20/19 04:00 100/54 05/20/19 03:52 70 05/20/19 03:49 79 05/20/19 03:45 82 16 95/54 (68) 100 05/20/19 03:30 82 16 105/54 (71) 100 05/20/19 03:15 82 16 100/55 (70) 100 05/20/19 03:00 82 16 95/54 (68) 100 05/20/19 03:00 94/50 05/20/19 02:45 80 18 115/80 (92) 98 05/20/19 02:36 81 20 110/80 (90) 100 05/20/19 02:36 84 17 113/76 (88) 100 05/20/19 02:30 92 16 115/85 (95) 100 05/20/19 02:20 77/45 05/20/19 02:15 90 22 113/50 (71) 100 05/20/19 02:00 92 20 100/54 (69) 94 05/20/19 02:00 88 16 70 05/20/19 01:45 94 19 85/40 (55) 92 05/20/19 01:30 94 20 87/52 (64) 94 05/20/19 01:15 82 22 92/60 (71) 96 05/20/19 01:00 82 20 87/52 (64) 94 05/20/19 00:45 77 16 70 05/20/19 00:00 Mechanical Ventilator 70.0 05/20/19 00:00 81 05/20/19 00:00 98.4 95 19 90/45 (60) 92 05/20/19 00:00 70 05/19/19 23:00 95 19 94/53 (67) 92 05/19/19 22:52 74 16 80 05/19/19 22:00 86 19 94/53 (67) 92 05/19/19 21:13 78 17 80 05/19/19 21:00 85 19 94/53 (67) 92 05/19/19 20:00 70 05/19/19 20:00 85 05/19/19 20:00 97.4 95 19 94/53 (67) 92 05/19/19 20:00 Mechanical Ventilator 70.0 05/19/19 19:06 91 18 80 05/19/19 19:00 95 19 94/53 (67) 92 05/19/19 18:41 Mechanical Ventilator 05/19/19 18:00 97.7 98 17 68/43 (51) 95 05/19/19 18:00 96.5 87 15 92/55 100 Trach Collar 80 05/19/19 16:57 92 16 50 05/19/19 16:00 100 17 50 05/19/19 15:53 96.3 100 21 95/61 99 Trach Collar 80 05/19/19 14:35 108 22 103/55 100 Trach Collar 80 05/19/19 14:34 108 20 80 05/19/19 13:05 35 05/19/19 13:03 100 14 128/69 96 Trach Collar 35 05/19/19 13:03 100 14 Trach Collar 35 05/19/19 13:01 101 17 40 05/19/19 12:52 96.3 102 18 128/64 (85) 90 Mechanical Ventilator 6.0 Intake and Output 05/19/19 05/20/19 19:00 07:00 Intake Total 1385 ml 1223.166 ml Output Total 0 ml 560 ml Balance 1385 ml 663.166 ml IV Total 1385 ml 1223.166 ml Output Urine Total 0 ml 560 ml # Voids 1 Laboratory Tests Test 05/19/19 13:26 05/19/19 14:00 05/19/19 15:02 05/19/19 15:30 Arterial Blood pH 7.308 (7.350-7.450) Arterial Blood Partial Pressure CO2 57.7 mmHg (35.0-45.0) *H Arterial Blood Partial Pressure O2 62.8 mmHg (75.0-100.0) L Arterial Blood HCO3 28.3 mmol/L (22.0-26.0) H Arterial Blood Oxygen Saturation 90.0 % (95-100) L Arterial Blood Base Excess 1.0 (-2-2) Trsitan Test Positive White Blood Count 19.4 K/UL (4.8-10.8) H Red Blood Count 4.54 M/UL (4.20-5.40) Hemoglobin 11.8 G/DL (12.0-16.0) L Hematocrit 40.7 % (37.0-47.0) Mean Corpuscular Volume 90 FL (80-99) Mean Corpuscular Hemoglobin 26.1 PG (27.0-31.0) L Mean Corpuscular Hemoglobin Concent 29.1 G/DL (32.0-36.0) L Red Cell Distribution Width 18.0 % (11.6-14.8) H Platelet Count 407 K/UL (150-450) Mean Platelet Volume 6.1 FL (6.5-10.1) L Neutrophils (%) (Auto) % (45.0-75.0) Lymphocytes (%) (Auto) % (20.0-45.0) Monocytes (%) (Auto) % (1.0-10.0) Eosinophils (%) (Auto) % (0.0-3.0) Basophils (%) (Auto) % (0.0-2.0) Differential Total Cells Counted 100 Neutrophils % (Manual) 90 % (45-75) H Lymphocytes % (Manual) 6 % (20-45) L Monocytes % (Manual) 3 % (1-10) Eosinophils % (Manual) 1 % (0-3) Basophils % (Manual) 0 % (0-2) Band Neutrophils 0 % (0-8) Nucleated Red Blood Cells 1 /100 WBC Platelet Estimate Adequate Platelet Morphology Normal Red Blood Cell Morphology Hypochromasia 1+ Anisocytosis 2+ Sodium Level 147 MMOL/L (136-145) H Potassium Level 5.6 MMOL/L (3.5-5.1) H Chloride Level 110 MMOL/L (98-107) H Carbon Dioxide Level 29 MMOL/L (21-32) Anion Gap 8 mmol/L (5-15) Blood Urea Nitrogen 61 mg/dL (7-18) H Creatinine 0.4 MG/DL (0.55-1.30) L Estimat Glomerular Filtration Rate > 60 mL/min (>60) Glucose Level 456 MG/DL (74-106) H Lactic Acid Level 1.60 mmol/L (0.4-2.0) Calcium Level 13.1 MG/DL (8.5-10.1) *H Total Bilirubin 0.2 MG/DL (0.2-1.0) Aspartate Amino Transf (AST/SGOT) 73 U/L (15-37) H Alanine Aminotransferase (ALT/SGPT) 123 U/L (12-78) H Alkaline Phosphatase 182 U/L (46-116) H Total Creatine Kinase 92 U/L (26-308) Creatine Kinase MB 3.1 NG/ML (0.0-3.6) Creatine Kinase MB Relative Index 3.3 Troponin I 0.045 ng/mL (0.000-0.056) Total Protein 7.9 G/DL (6.4-8.2) Albumin 2.1 G/DL (3.4-5.0) L Globulin 5.8 g/dL Albumin/Globulin Ratio 0.4 (1.0-2.7) L Urine Eosinophils Few seen (NONE SEEN) Urine Osmolality 430 mOsm/kg (429-449) Urine Random Creatinine Pending Urine Random Microalbumin Pending Urine Random Sodium < 20 mmol/L (20-110) L Urine Microalbumin/Creatinine Ratio Pending Urine Color Pale yellow Urine Appearance Slightly cloudy Urine pH 5 (4.5-8.0) Urine Specific [place] 1.010 (1.005-1.035) Urine Protein 2+ (NEGATIVE) H Urine Glucose (UA) 1+ (NEGATIVE) H Urine Ketones Negative (NEGATIVE) Urine Blood 3+ (NEGATIVE) H Urine Nitrite Negative (NEGATIVE) Urine Bilirubin Negative (NEGATIVE) Urine Urobilinogen Normal MG/DL (0.0-1.0) Urine Leukocyte Esterase 2+ (NEGATIVE) H Urine RBC 2-4 /HPF (0 - 2) H Urine WBC 15-20 /HPF (0 - 2) H Urine Squamous Epithelial Cells Few /LPF (NONE/OCC) Urine Bacteria Many /HPF (NONE) H Test 05/19/19 20:45 05/20/19 04:30 Uric Acid 6.9 MG/DL (2.6-7.2) Total Creatine Kinase 70 U/L (26-308) White Blood Count 19.7 K/UL (4.8-10.8) H Red Blood Count 3.46 M/UL (4.20-5.40) L Hemoglobin 9.3 G/DL (12.0-16.0) L Hematocrit 30.0 % (37.0-47.0) L Mean Corpuscular Volume 86 FL (80-99) Mean Corpuscular Hemoglobin 26.8 PG (27.0-31.0) L Mean Corpuscular Hemoglobin Concent 31.0 G/DL (32.0-36.0) L Red Cell Distribution Width 18.0 % (11.6-14.8) H Platelet Count 414 K/UL (150-450) Mean Platelet Volume 6.6 FL (6.5-10.1) Neutrophils (%) (Auto) % (45.0-75.0) Lymphocytes (%) (Auto) % (20.0-45.0) Monocytes (%) (Auto) % (1.0-10.0) Eosinophils (%) (Auto) % (0.0-3.0) Basophils (%) (Auto) % (0.0-2.0) Differential Total Cells Counted 100 Neutrophils % (Manual) 94 % (45-75) H Lymphocytes % (Manual) 6 % (20-45) L Monocytes % (Manual) 0 % (1-10) L Eosinophils % (Manual) 0 % (0-3) Basophils % (Manual) 0 % (0-2) Band Neutrophils 0 % (0-8) Platelet Estimate Adequate Platelet Morphology Normal Hypochromasia 1+ Anisocytosis 1+ Sodium Level 155 MMOL/L (136-145) H Potassium Level 3.0 MMOL/L (3.5-5.1) L Chloride Level 120 MMOL/L (98-107) H Carbon Dioxide Level 25 MMOL/L (21-32) Anion Gap 10 mmol/L (5-15) Blood Urea Nitrogen 29 mg/dL (7-18) H Creatinine 0.3 MG/DL (0.55-1.30) L Estimat Glomerular Filtration Rate > 60 mL/min (>60) Glucose Level 242 MG/DL (74-106) #H Calcium Level 11.6 MG/DL (8.5-10.1) H Phosphorus Level 1.3 MG/DL (2.5-4.9) L Albumin 1.8 G/DL (3.4-5.0) L Microbiology Date/Time Source Procedure Growth Status 05/19/19 15:30 Urine,Clean Catch Urine Culture - Preliminary Resulted Height (Feet): 5 Height (Inches): 3.00 Weight (Pounds): 117 Medications Current Medications Medications (Trade) Dose Ordered Sig/Lavon Route PRN Reason Start Time Stop Time Status Last Admin Dose Admin Acetaminophen (Tylenol) 650 mg Q4H PRN ORAL FEVER (temp> 100.5F) 05/19/19 15:30 06/18/19 15:29 Albuterol/ Ipratropium (Albuterol/ Ipratropium) 3 ml Q4H PRN HHN Shortness of Breath 05/19/19 15:30 05/24/19 15:29 Chlorhexidine Gluconate (Nkechi-Hex 2%) 1 applic BEDTIME TOPIC 05/20/19 21:00 06/19/19 20:59 Dextrose 1,000 ml @ 75 mls/hr [id number] IV 05/20/19 11:00 06/19/19 10:59 UNV Dextrose (Dextrose 50%) 25 ml Q30M PRN IV Hypoglycemia 05/19/19 15:30 06/18/19 15:29 Dextrose (Dextrose 50%) 50 ml Q30M PRN IV Hypoglycemia 05/19/19 17:30 06/18/19 17:29 Dopamine HCl/ Dextrose 250 ml @ 0 mls/hr Q24H IV 05/19/19 21:15 06/18/19 21:14 05/20/19 02:20 Heparin Sodium (Porcine) (Heparin 5000 units/ml) 5,000 units EVERY 12 HOURS SUBQ 05/19/19 21:00 06/18/19 20:59 05/20/19 09:24 Lorazepam (Ativan 2mg/ml 1ml) 2 mg Q2H PRN IV For Anxiety 05/19/19 15:30 05/26/19 15:29 Morphine Sulfate (Morphine Sulfate) 4 mg Q4H PRN IVP Severe Pain (Pain Scale 7-10) 05/19/19 15:30 05/26/19 15:29 Ondansetron HCl (Zofran) 4 mg Q6H PRN IVP Nausea & Vomiting 05/19/19 15:30 06/18/19 15:29 Polyethylene Glycol (Miralax) 17 gm DAILYPRN PRN ORAL Constipation 05/19/19 15:30 06/18/19 15:29 Potassium Chloride (K-Dur) 40 meq ONCE GT 05/20/19 10:19 05/20/19 12:00 Sodium Hypochlorite (Dakin's Quarter Strength) 1 applic BID TOPIC 05/20/19 18:00 06/19/19 17:59 Vancomycin HCl (Vanco rx to dose) 1 ea DAILY PRN MISC Per rx protocol 05/19/19 17:30 06/18/19 17:29 Vancomycin HCl 750 mg/Sodium Chloride 275 ml @ 183.333 mls/hr Q12H IVPB 05/20/19 02:00 05/25/19 01:59 05/20/19 02:21 Assessment/Plan Problem List: (1) Acute and chronic respiratory failure ICD Codes: J96.20 - Acute and chronic respiratory failure, unspecified whether with hypoxia or hypercapnia SNOMED: 96779025 (2) Multiple organ failure SNOMED: 48902504 (3) Septic shock ICD Codes: A41.9 - Sepsis, unspecified organism; R65.21 - Severe sepsis with septic shock SNOMED: 31138875 (4) ATN (acute tubular necrosis) ICD Codes: N17.0 - Acute kidney failure with tubular necrosis SNOMED: 91766578 (5) Chronic anoxic encephalopathy ICD Codes: G93.1 - Anoxic brain damage, not elsewhere classified SNOMED: 29668746 (6) Decubitus skin ulcer ICD Codes: L89.90 - Pressure ulcer of unspecified site, unspecified stage SNOMED: 072315628 (7) Feeding by G-tube ICD Codes: Z93.1 - Gastrostomy status SNOMED: 914349925, 831652418, 621537723 (8) History of sudden cardiac arrest ICD Codes: Z86.74 - Personal history of sudden cardiac arrest SNOMED: 65112107, 431865514 Respiratory: monitor respiratory rate, adjust FIO2, CXR Cardiac: continue to monitor HR/BP Renal: F/U I&O, check electrolytes Infectious Disease: check cultures Gastrointestinal: continue feedings/current rate Endocrine: check TSH, check HgA1C Hematologic: transfuse if hgb<8.5 Neurologic: PRN Ativan, PRN Morphine, keep patient comfortable Affect: PRN ativan Prophylaxis: Heparin Disposition: keep in ICU Time Spent (Minutes): 40 Notes 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
--- NOTE | 2019-05-20 11:37 | NUR ---
NURSE NOTES: Blood culture results=gram negative rods x4 bottles. notified Dr. Corrigan and Dr. Bean, no new orders given.
--- NOTE | 2019-05-20 11:49 | Consultation ---
History of Present Illness General Date patient seen: May 20, 2019 Chief Complaint: Dyspnea/Respdistress Reason for Consultation: Sepsis Present Illness HPI Ms. Ray is a 69 yo female with PMHx of HTN, HLD chronic respiratory failure s/ p PEG and Trach who was sen to the ED from her custodial for SOB. She is not verbal so history was obtained from the chart. In the ED she was Afebrile with WBCs of 16. CXR showed left sided consolidation. He was also hypotensive. . She was recently hospitalized with PNA but was D/C 03/05/19 and then again from - 03/14/19 when she was treated for sacral decub ( Not infected) ID consulted for sepsis PMHx/PSHx HTN HLD Chronic respiratory failure s/p PEG and Trach Encephalopathy Sacral decub SocHx Unable to obtain as patient not verbal FamHx Unable to obtain as patient not verbal Allergies: Coded Allergies: DIPHENHYDRAMINE (Verified Allergy, Unknown, 02/24/19) FLUPHENAZINE (Verified Allergy, Unknown, 02/24/19) Medication History Scheduled Amlodipine Besylate (Norvasc), 5 MG GT DAILY, (Reported) Ascorbic Acid* (Vitamin C*), 500 MG GT DAILY, (Reported) Atorvastatin Calcium* (Lipitor*), 10 MG GT DAILY, (Reported) Clonazepam* (Klonopin*), 0.5 MG ORAL Q12HR, (Reported) Docusate Sodium* (Colace*), 100 MG GT DAILY, (Reported) Enoxaparin* (Lovenox*), 40 MG SUBQ DAILY, (Reported) Famotidine (Famotidine), 20 MG GT DAILY, (Reported) Heparin Sod (Porcine) (Heparin Sodium*), 5,000 UNITS SUBQ EVERY 12 HOURS, ( Reported) Multivitamins* (Multivitamins*), 1 TAB GT DAILY, (Reported) Zinc Sulfate (Zinc Sulfate*), 220 MG GT DAILY, (Reported) Scheduled PRN Acetaminophen (Tylenol), 325 MG GT Q4HR PRN for Prn Pain/Headache/Temp > 101, ( Reported) Patient History Healthcare decision maker N Resuscitation status Full Code Advanced Directive on File No Review of Systems ROS Narrative Unable to obtain as patient not verbal Physical Exam Last 24 Hour Vital Signs Date Time Temp Pulse Resp B/P (MAP) Pulse Ox O2 Delivery O2 Flow Rate FiO2 05/20/19 11:22 76 19 70 05/20/19 09:12 78 16 70 05/20/19 08:00 70 05/20/19 07:51 77 16 70 05/20/19 06:00 82 16 95/54 (68) 100 05/20/19 05:30 82 16 95/54 (68) 100 05/20/19 05:00 103/54 05/20/19 05:00 87 16 70 05/20/19 05:00 82 16 95/54 (68) 100 05/20/19 04:45 82 16 95/54 (68) 100 05/20/19 04:30 82 16 110/50 (70) 100 05/20/19 04:15 82 16 102/54 (70) 100 05/20/19 04:00 82 16 100/55 (70) 100 05/20/19 04:00 70 05/20/19 04:00 100/54 05/20/19 03:52 70 05/20/19 03:49 79 05/20/19 03:45 82 16 95/54 (68) 100 05/20/19 03:30 82 16 105/54 (71) 100 05/20/19 03:15 82 16 100/55 (70) 100 05/20/19 03:00 82 16 95/54 (68) 100 05/20/19 03:00 94/50 05/20/19 02:45 80 18 115/80 (92) 98 05/20/19 02:36 81 20 110/80 (90) 100 05/20/19 02:36 84 17 113/76 (88) 100 05/20/19 02:30 92 16 115/85 (95) 100 05/20/19 02:20 77/45 05/20/19 02:15 90 22 113/50 (71) 100 05/20/19 02:00 92 20 100/54 (69) 94 05/20/19 02:00 88 16 70 05/20/19 01:45 94 19 85/40 (55) 92 05/20/19 01:30 94 20 87/52 (64) 94 05/20/19 01:15 82 22 92/60 (71) 96 05/20/19 01:00 82 20 87/52 (64) 94 05/20/19 00:45 77 16 70 05/20/19 00:00 Mechanical Ventilator 70.0 05/20/19 00:00 81 05/20/19 00:00 98.4 95 19 90/45 (60) 92 05/20/19 00:00 70 05/19/19 23:00 95 19 94/53 (67) 92 05/19/19 22:52 74 16 80 05/19/19 22:00 86 19 94/53 (67) 92 05/19/19 21:13 78 17 80 05/19/19 21:00 85 19 94/53 (67) 92 05/19/19 20:00 70 05/19/19 20:00 85 05/19/19 20:00 97.4 95 19 94/53 (67) 92 05/19/19 20:00 Mechanical Ventilator 70.0 05/19/19 19:06 91 18 80 05/19/19 19:00 95 19 94/53 (67) 92 05/19/19 18:41 Mechanical Ventilator 05/19/19 18:00 97.7 98 17 68/43 (51) 95 05/19/19 18:00 96.5 87 15 92/55 100 Trach Collar 80 05/19/19 16:57 92 16 50 05/19/19 16:00 100 17 50 05/19/19 15:53 96.3 100 21 95/61 99 Trach Collar 80 05/19/19 14:35 108 22 103/55 100 Trach Collar 80 05/19/19 14:34 108 20 80 05/19/19 13:05 35 05/19/19 13:03 100 14 128/69 96 Trach Collar 35 05/19/19 13:03 100 14 Trach Collar 35 05/19/19 13:01 101 17 40 05/19/19 12:52 96.3 102 18 128/64 (85) 90 Mechanical Ventilator 6.0 Intake and Output 05/19/19 05/20/19 19:00 07:00 Intake Total 1385 ml 1223.166 ml Output Total 0 ml 560 ml Balance 1385 ml 663.166 ml IV Total 1385 ml 1223.166 ml Output Urine Total 0 ml 560 ml # Voids 1 Laboratory Tests Test 05/19/19 13:26 05/19/19 14:00 05/19/19 15:02 05/19/19 15:30 Arterial Blood pH 7.308 (7.350-7.450) Arterial Blood Partial Pressure CO2 57.7 mmHg (35.0-45.0) *H Arterial Blood Partial Pressure O2 62.8 mmHg (75.0-100.0) L Arterial Blood HCO3 28.3 mmol/L (22.0-26.0) H Arterial Blood Oxygen Saturation 90.0 % (95-100) L Arterial Blood Base Excess 1.0 (-2-2) Tristan Test Positive White Blood Count 19.4 K/UL (4.8-10.8) H Red Blood Count 4.54 M/UL (4.20-5.40) Hemoglobin 11.8 G/DL (12.0-16.0) L Hematocrit 40.7 % (37.0-47.0) Mean Corpuscular Volume 90 FL (80-99) Mean Corpuscular Hemoglobin 26.1 PG (27.0-31.0) L Mean Corpuscular Hemoglobin Concent 29.1 G/DL (32.0-36.0) L Red Cell Distribution Width 18.0 % (11.6-14.8) H Platelet Count 407 K/UL (150-450) Mean Platelet Volume 6.1 FL (6.5-10.1) L Neutrophils (%) (Auto) % (45.0-75.0) Lymphocytes (%) (Auto) % (20.0-45.0) Monocytes (%) (Auto) % (1.0-10.0) Eosinophils (%) (Auto) % (0.0-3.0) Basophils (%) (Auto) % (0.0-2.0) Differential Total Cells Counted 100 Neutrophils % (Manual) 90 % (45-75) H Lymphocytes % (Manual) 6 % (20-45) L Monocytes % (Manual) 3 % (1-10) Eosinophils % (Manual) 1 % (0-3) Basophils % (Manual) 0 % (0-2) Band Neutrophils 0 % (0-8) Nucleated Red Blood Cells 1 /100 WBC Platelet Estimate Adequate Platelet Morphology Normal Red Blood Cell Morphology Hypochromasia 1+ Anisocytosis 2+ Sodium Level 147 MMOL/L (136-145) H Potassium Level 5.6 MMOL/L (3.5-5.1) H Chloride Level 110 MMOL/L (98-107) H Carbon Dioxide Level 29 MMOL/L (21-32) Anion Gap 8 mmol/L (5-15) Blood Urea Nitrogen 61 mg/dL (7-18) H Creatinine 0.4 MG/DL (0.55-1.30) L Estimat Glomerular Filtration Rate > 60 mL/min (>60) Glucose Level 456 MG/DL (74-106) H Lactic Acid Level 1.60 mmol/L (0.4-2.0) Calcium Level 13.1 MG/DL (8.5-10.1) *H Total Bilirubin 0.2 MG/DL (0.2-1.0) Aspartate Amino Transf (AST/SGOT) 73 U/L (15-37) H Alanine Aminotransferase (ALT/SGPT) 123 U/L (12-78) H Alkaline Phosphatase 182 U/L (46-116) H Total Creatine Kinase 92 U/L (26-308) Creatine Kinase MB 3.1 NG/ML (0.0-3.6) Creatine Kinase MB Relative Index 3.3 Troponin I 0.045 ng/mL (0.000-0.056) Total Protein 7.9 G/DL (6.4-8.2) Albumin 2.1 G/DL (3.4-5.0) L Globulin 5.8 g/dL Albumin/Globulin Ratio 0.4 (1.0-2.7) L Urine Eosinophils Few seen (NONE SEEN) Urine Osmolality 430 mOsm/kg (429-449) Urine Random Creatinine Pending Urine Random Microalbumin Pending Urine Random Sodium < 20 mmol/L (20-110) L Urine Microalbumin/Creatinine Ratio Pending Urine Color Pale yellow Urine Appearance Slightly cloudy Urine pH 5 (4.5-8.0) Urine Specific [place] 1.010 (1.005-1.035) Urine Protein 2+ (NEGATIVE) H Urine Glucose (UA) 1+ (NEGATIVE) H Urine Ketones Negative (NEGATIVE) Urine Blood 3+ (NEGATIVE) H Urine Nitrite Negative (NEGATIVE) Urine Bilirubin Negative (NEGATIVE) Urine Urobilinogen Normal MG/DL (0.0-1.0) Urine Leukocyte Esterase 2+ (NEGATIVE) H Urine RBC 2-4 /HPF (0 - 2) H Urine WBC 15-20 /HPF (0 - 2) H Urine Squamous Epithelial Cells Few /LPF (NONE/OCC) Urine Bacteria Many /HPF (NONE) H Test 05/19/19 20:45 05/20/19 04:30 Uric Acid 6.9 MG/DL (2.6-7.2) Total Creatine Kinase 70 U/L (26-308) White Blood Count 19.7 K/UL (4.8-10.8) H Red Blood Count 3.46 M/UL (4.20-5.40) L Hemoglobin 9.3 G/DL (12.0-16.0) L Hematocrit 30.0 % (37.0-47.0) L Mean Corpuscular Volume 86 FL (80-99) Mean Corpuscular Hemoglobin 26.8 PG (27.0-31.0) L Mean Corpuscular Hemoglobin Concent 31.0 G/DL (32.0-36.0) L Red Cell Distribution Width 18.0 % (11.6-14.8) H Platelet Count 414 K/UL (150-450) Mean Platelet Volume 6.6 FL (6.5-10.1) Neutrophils (%) (Auto) % (45.0-75.0) Lymphocytes (%) (Auto) % (20.0-45.0) Monocytes (%) (Auto) % (1.0-10.0) Eosinophils (%) (Auto) % (0.0-3.0) Basophils (%) (Auto) % (0.0-2.0) Differential Total Cells Counted 100 Neutrophils % (Manual) 94 % (45-75) H Lymphocytes % (Manual) 6 % (20-45) L Monocytes % (Manual) 0 % (1-10) L Eosinophils % (Manual) 0 % (0-3) Basophils % (Manual) 0 % (0-2) Band Neutrophils 0 % (0-8) Platelet Estimate Adequate Platelet Morphology Normal Hypochromasia 1+ Anisocytosis 1+ Sodium Level 155 MMOL/L (136-145) H Potassium Level 3.0 MMOL/L (3.5-5.1) L Chloride Level 120 MMOL/L (98-107) H Carbon Dioxide Level 25 MMOL/L (21-32) Anion Gap 10 mmol/L (5-15) Blood Urea Nitrogen 29 mg/dL (7-18) H Creatinine 0.3 MG/DL (0.55-1.30) L Estimat Glomerular Filtration Rate > 60 mL/min (>60) Glucose Level 242 MG/DL (74-106) #H Calcium Level 11.6 MG/DL (8.5-10.1) H Phosphorus Level 1.3 MG/DL (2.5-4.9) L Albumin 1.8 G/DL (3.4-5.0) L Microbiology Date/Time Source Procedure Growth Status 05/19/19 14:00 Blood Blood Culture - Preliminary Resulted 05/19/19 13:45 Blood Blood Culture - Preliminary Resulted 05/19/19 15:30 Urine,Clean Catch Urine Culture - Preliminary Resulted Height (Feet): 5 Height (Inches): 3.00 Weight (Pounds): 117 Medications Current Medications Medications (Trade) Dose Ordered Sig/Lavon Route PRN Reason Start Time Stop Time Status Last Admin Dose Admin Acetaminophen (Tylenol) 650 mg Q4H PRN ORAL FEVER (temp> 100.5F) 05/19/19 15:30 06/18/19 15:29 Albuterol/ Ipratropium (Albuterol/ Ipratropium) 3 ml Q4H PRN HHN Shortness of Breath 05/19/19 15:30 05/24/19 15:29 Chlorhexidine Gluconate (Nkechi-Hex 2%) 1 applic BEDTIME TOPIC 05/20/19 21:00 06/19/19 20:59 Dextrose 1,000 ml @ 75 mls/hr [id number] IV 05/20/19 11:03 06/19/19 11:02 05/20/19 11:04 Dextrose (Dextrose 50%) 25 ml Q30M PRN IV Hypoglycemia 05/20/19 11:45 06/19/19 11:44 Dextrose (Dextrose 50%) 50 ml Q30M PRN IV Hypoglycemia 05/20/19 11:45 06/19/19 11:44 Dopamine HCl/ Dextrose 250 ml @ 0 mls/hr Q24H IV 05/19/19 21:15 06/18/19 21:14 05/20/19 02:20 Heparin Sodium (Porcine) (Heparin 5000 units/ml) 5,000 units EVERY 12 HOURS SUBQ 05/19/19 21:00 06/18/19 20:59 05/20/19 09:24 Insulin Aspart (NovoLOG) Q6HR SUBQ 05/20/19 12:00 06/19/19 11:59 Lorazepam (Ativan 2mg/ml 1ml) 2 mg Q2H PRN IV For Anxiety 05/19/19 15:30 05/26/19 15:29 Morphine Sulfate (Morphine Sulfate) 4 mg Q4H PRN IVP Severe Pain (Pain Scale 7-10) 05/19/19 15:30 05/26/19 15:29 Potassium Chloride (K-Dur) 40 meq ONCE GT 05/20/19 10:19 05/20/19 12:00 Sodium Hypochlorite (Dakin's Quarter Strength) 1 applic BID TOPIC 05/20/19 18:00 06/19/19 17:59 Vancomycin HCl (Vanco rx to dose) 1 ea DAILY PRN MISC Per rx protocol 05/19/19 17:30 06/18/19 17:29 Vancomycin HCl 750 mg/Sodium Chloride 275 ml @ 183.333 mls/hr Q12H IVPB 05/20/19 02:00 05/25/19 01:59 05/20/19 02:21 Objective Narrative Gen: Not following, Trached on Vent HEENT: NCAT, MMM, PERRL, No Oral lesion, no scleral icterus NECK: supple, No LAD, No JVD LUNGS: Course B/L, Decrease breath sounds in bases, No Wheezing CARDS: RRR, S1, S2, No M/R/G, ABD: Soft, NT, ND, No R/G, + BS, No HSM, No Masses : Deferred Ext: C/C/E, Pulses 2+ B/L (DP, Rad): NEURO: Not verbal, No following SKIN: Warm/dry, No rashes, Sacral decub stage 4 Assessment/Plan Assessment/Plan: 69 yo female with PMHx of HTN, HLD chronic respiratory failure s/p PEG and Trach who was sen to the ED from her custodial for SOB. Sepsis UA pos UCx penf Leukocytosis of 19 Blood Cx 05/19/19 - GNR Respiratory distress On Vent CXR - Left sided consolidation. No Fever Elevated LFTs Sacral ulcer Need debridement Ear wound healing chronic respiratory failure s/p trach/vent PEG schizoaffective disorder Plan: - Start Zosyn #1 - Continue Vancomycin #1 -Monitor CBC/CMP, temperatures - f/u Cx B/S/U Thank you for this consult. We will continue to follow the patient during this hospitalization. Chadwick Keith MD May 20, 2019 11:49
--- NOTE | 2019-05-20 12:15 | NUR ---
RD ASSESSMENT & RECOMMENDATIONS SEE CARE ACTIVITY FOR COMPLETE ASSESSMENT DAILY ESTIMATED NEEDS: Needs based on Critical care, wounds 65kg 25-30 kcals/kg [id number] total kcals 1.5-2 g protein/kg 98-130 g total protein 25-30 mL/kg 2134-6571 total fluid mLs NUTRITION DIAGNOSIS: 1) Increased kcal and protein needs r/t wound healing as evidenced by pt w/ advanced wounds per photo, full thickness, unstageable and necrotic per wound nurse, pending full report. 2) Swallowing difficulty r/t respiratory status as evidenced by pt is vent dep via trach, GT dep, on tube feeds. CURRENT TF: Jevity 1.2 @30 ENTERAL NUTRITION RECOMMENDATIONS: TF CHANGE TO -> VITAL AF 1.2 @60ml/hr x24 hrs to provide 1440ml, 1728 kcal, 108g pro, 1168ml free H2O - REC TF CHANGE TO VITAL AF 1.2, start @30ml/hr, advance as tolerated 10ml q4-6 hrs to goal - Flush per MD. HOB over 30 degrees FEED W/ HEMODYNAMIC STABILITY, OTHERWISE TROPHIC FEEDS OF 5-10ML/HR ADDITIONAL RECOMMENDATIONS: 1) PER SNF: pt is 143#, 65inches tall 2) WOUND CARE: Add ALEENA BID via GT daily Add Vit C 250mmg BID Add ZnSO4 220mg daily x10 days 3) Check lytes daily, replete as needed (Low Phos 1.3) 4) Weekly CALIBRATED bed scale wts 5) Rec SSI, bedside blood checks (BG [phone])
--- NOTE | 2019-05-20 12:22 | NUR ---
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
--- NOTE | 2019-05-20 13:13 | NUR ---
NURSE NOTES: Turned and repositioned. Oral care done. Sxn provided, thin klein secretions noted.
[2019-05-20] MEDS: NovoLOG Insulin Flexpen SUBQ SCH ×3 (13:20→23:39)
--- NOTE | 2019-05-20 13:38 | NUR ---
NURSE NOTES:WOUND CARE NOTES:Pt presented on admission with multiple pressure injuries: L earlobe grossly malodorous and necrotic with partial loss of earlobe.Ear canal and posterior to earlobe noted to be purple/red.(L)6cm x (W)1.5cm.Smal amt brown exudate noted. Dry eschar noted to R earlobe (L)1cm. Full thickness Sacral pressure with undermining.100% soft necrosis noted to base of wound and undermined borders. Additional soft necrosis noted to edges and periwound. Wound is malodorous. Small amt black exudate noted.(L)(L)7.5cm x (W)9.7cm. Unstageable pressure injury L heel .Base of wound fluctuant and purple in centre with surrounding dry eschar (L)3.4cm x (W)3.2cm.Non-blanchable erythema periwound. R heel dry and blanchable. Skin Assessed under collar of trach and no areas of concerns noted. Tx.Plan: Cleanse L earlobe with Dakin's 0.25% nataly. Apply Dakin's 0.25% moist [id number] and cover with Optifoam drsg Twice Daily and PRN. Cleanse Sacral area with Dakin's 0.25% Nataly.Loosely pack wound with Dakin's moist Kerlix. Apply Triad Periwound. Cover with Optifoam drsg. Twice Daily and prn. Apply Betadine to L heel. Cover with Optifoam drsg. Change every 3 days and prn. Reposition at least every 2hours or as tolerated. Off-load heels with pillow.
[2019-05-20] MEDS: Piperacillin/Tazobactam 3.375 GM in NS 110 ML IVPB SCH ×2 (13:45→21:46)
--- NOTE | 2019-05-20 15:00 | NUR ---
NURSE NOTES: Changed GTF to Vital AF. Goal is 60cc/hr per RD. Running at 30cc/hr now. NO residual, tolerating well, HOB 35 degrees.
--- NOTE | 2019-05-20 15:48 | History & Physical ---
History and Physical History & Physicial Mainor Newsome MD May 20, 2019 15:48
--- NOTE | 2019-05-20 15:53 | Consultation ---
History of Present Illness General Chief Complaint: Dyspnea/Respdistress Reason for Consultation: Sepsis Present Illness HPI 69 year old female well known to me from prior visits who presented to ED with respiratory insufficiency and SOB. noted to have fever and leukocytosis. admitted to ICU for sepsis and work up. ongoing care. on admission noted to have significantly deteriorated wound requiring intervention. surgery called to evaluate and assist with care. patient seen, chart reviewed, patient examined. Allergies: Coded Allergies: DIPHENHYDRAMINE (Verified Allergy, Unknown, 02/24/19) FLUPHENAZINE (Verified Allergy, Unknown, 02/24/19) Medication History Scheduled Amlodipine Besylate (Norvasc), 5 MG GT DAILY, (Reported) Ascorbic Acid* (Vitamin C*), 500 MG GT DAILY, (Reported) Atorvastatin Calcium* (Lipitor*), 10 MG GT DAILY, (Reported) Clonazepam* (Klonopin*), 0.5 MG ORAL Q12HR, (Reported) Docusate Sodium* (Colace*), 100 MG GT DAILY, (Reported) Enoxaparin* (Lovenox*), 40 MG SUBQ DAILY, (Reported) Famotidine (Famotidine), 20 MG GT DAILY, (Reported) Heparin Sod (Porcine) (Heparin Sodium*), 5,000 UNITS SUBQ EVERY 12 HOURS, ( Reported) Multivitamins* (Multivitamins*), 1 TAB GT DAILY, (Reported) Zinc Sulfate (Zinc Sulfate*), 220 MG GT DAILY, (Reported) Scheduled PRN Acetaminophen (Tylenol), 325 MG GT Q4HR PRN for Prn Pain/Headache/Temp > 101, ( Reported) Patient History Limited by: medical condition History Provided By: Medical Record, PMD Healthcare decision maker N Resuscitation status Full Code Advanced Directive on File No Past Medical/Surgical History Past Medical/Surgical History: (1) Septic shock (2) Multiple organ failure (3) MDRO (multiple drug resistant organisms) resistance (4) Severe anemia (5) Feeding by G-tube (6) Chronic respiratory failure (7) Hypercalcemia (8) Urinary tract infection (9) Chronic anoxic encephalopathy (10) Decubitus skin ulcer (11) History of sudden cardiac arrest (12) Sepsis (13) ATN (acute tubular necrosis) (14) Acute and chronic respiratory failure Review of Systems ROS Narrative unable to obtain given medical condition Physical Exam General Appearance: mild distress Lines, tubes and drains: other HEENT: other Neck: trach Respiratory/Chest: decreased breath sounds, on vent Cardiovascular/Chest: irregularly irregular Abdomen: soft, feeding tube Genitourinary/Rectal: other Extremities: other Skin Exam: other Last 24 Hour Vital Signs Date Time Temp Pulse Resp B/P (MAP) Pulse Ox O2 Delivery O2 Flow Rate FiO2 05/20/19 15:00 75 19 70 05/20/19 12:00 98.9 77 16 115/68 (84) 100 05/20/19 12:00 70 05/20/19 12:00 81 05/20/19 11:30 80 16 114/67 (83) 100 05/20/19 11:22 76 19 70 05/20/19 11:00 76 16 107/61 (76) 100 05/20/19 10:30 79 16 107/61 (76) 100 05/20/19 10:00 81 16 99/61 (74) 100 05/20/19 09:30 83 16 89/54 (66) 100 05/20/19 09:12 78 16 70 05/20/19 09:00 82 16 107/61 (76) 100 05/20/19 08:30 82 16 107/61 (76) 100 05/20/19 08:00 77 16 95/54 (68) 100 05/20/19 08:00 70 05/20/19 08:00 76 05/20/19 07:51 77 16 70 05/20/19 07:30 98.6 77 16 95/56 (69) 100 05/20/19 07:00 78 16 95/54 (68) 100 05/20/19 06:00 82 16 95/54 (68) 100 05/20/19 05:30 82 16 95/54 (68) 100 05/20/19 05:00 103/54 05/20/19 05:00 87 16 70 05/20/19 05:00 82 16 95/54 (68) 100 05/20/19 04:45 82 16 95/54 (68) 100 05/20/19 04:30 82 16 110/50 (70) 100 05/20/19 04:15 82 16 102/54 (70) 100 05/20/19 04:00 82 16 100/55 (70) 100 05/20/19 04:00 70 05/20/19 04:00 100/54 05/20/19 03:52 70 05/20/19 03:49 79 05/20/19 03:45 82 16 95/54 (68) 100 05/20/19 03:30 82 16 105/54 (71) 100 05/20/19 03:15 82 16 100/55 (70) 100 05/20/19 03:00 82 16 95/54 (68) 100 05/20/19 03:00 94/50 05/20/19 02:45 80 18 115/80 (92) 98 05/20/19 02:36 81 20 110/80 (90) 100 05/20/19 02:36 84 17 113/76 (88) 100 05/20/19 02:30 92 16 115/85 (95) 100 05/20/19 02:20 77/45 05/20/19 02:15 90 22 113/50 (71) 100 05/20/19 02:00 92 20 100/54 (69) 94 05/20/19 02:00 88 16 70 05/20/19 01:45 94 19 85/40 (55) 92 05/20/19 01:30 94 20 87/52 (64) 94 05/20/19 01:15 82 22 92/60 (71) 96 05/20/19 01:00 82 20 87/52 (64) 94 05/20/19 00:45 77 16 70 05/20/19 00:00 Mechanical Ventilator 70.0 05/20/19 00:00 81 05/20/19 00:00 98.4 95 19 90/45 (60) 92 05/20/19 00:00 70 05/19/19 23:00 95 19 94/53 (67) 92 05/19/19 22:52 74 16 80 05/19/19 22:00 86 19 94/53 (67) 92 05/19/19 21:13 78 17 80 05/19/19 21:00 85 19 94/53 (67) 92 05/19/19 20:00 70 05/19/19 20:00 85 05/19/19 20:00 97.4 95 19 94/53 (67) 92 05/19/19 20:00 Mechanical Ventilator 70.0 05/19/19 19:06 91 18 80 6/20/19 19:00 95 19 94/53 (67) 92 05/19/19 18:41 Mechanical Ventilator 05/19/19 18:00 97.7 98 17 68/43 (51) 95 05/19/19 18:00 96.5 87 15 92/55 100 Trach Collar 80 05/19/19 16:57 92 16 50 05/19/19 16:00 100 17 50 05/19/19 15:53 96.3 100 21 95/61 99 Trach Collar 80 Intake and Output 05/19/19 05/20/19 18:59 06:59 Intake Total 1385 ml 1223.166 ml Output Total 520 ml Balance 1385 ml 703.166 ml IV Total 1385 ml 1223.166 ml Output Urine Total 520 ml # Voids 1 Laboratory Tests Test 05/19/19 20:45 05/20/19 04:30 Uric Acid 6.9 MG/DL (2.6-7.2) Total Creatine Kinase 70 U/L (26-308) White Blood Count 19.7 K/UL (4.8-10.8) H Red Blood Count 3.46 M/UL (4.20-5.40) L Hemoglobin 9.3 G/DL (12.0-16.0) L Hematocrit 30.0 % (37.0-47.0) L Mean Corpuscular Volume 86 FL (80-99) Mean Corpuscular Hemoglobin 26.8 PG (27.0-31.0) L Mean Corpuscular Hemoglobin Concent 31.0 G/DL (32.0-36.0) L Red Cell Distribution Width 18.0 % (11.6-14.8) H Platelet Count 414 K/UL (150-450) Mean Platelet Volume 6.6 FL (6.5-10.1) Neutrophils (%) (Auto) % (45.0-75.0) Lymphocytes (%) (Auto) % (20.0-45.0) Monocytes (%) (Auto) % (1.0-10.0) Eosinophils (%) (Auto) % (0.0-3.0) Basophils (%) (Auto) % (0.0-2.0) Differential Total Cells Counted 100 Neutrophils % (Manual) 94 % (45-75) H Lymphocytes % (Manual) 6 % (20-45) L Monocytes % (Manual) 0 % (1-10) L Eosinophils % (Manual) 0 % (0-3) Basophils % (Manual) 0 % (0-2) Band Neutrophils 0 % (0-8) Platelet Estimate Adequate Platelet Morphology Normal Hypochromasia 1+ Anisocytosis 1+ Sodium Level 155 MMOL/L (136-145) H Potassium Level 3.0 MMOL/L (3.5-5.1) L Chloride Level 120 MMOL/L (98-107) H Carbon Dioxide Level 25 MMOL/L (21-32) Anion Gap 10 mmol/L (5-15) Blood Urea Nitrogen 29 mg/dL (7-18) H Creatinine 0.3 MG/DL (0.55-1.30) L Estimat Glomerular Filtration Rate > 60 mL/min (>60) Glucose Level 242 MG/DL (74-106) #H Calcium Level 11.6 MG/DL (8.5-10.1) H Phosphorus Level 1.3 MG/DL (2.5-4.9) L Albumin 1.8 G/DL (3.4-5.0) L Height (Feet): 5 Height (Inches): 3.00 Weight (Pounds): 117 Medications Current Medications Medications (Trade) Dose Ordered Sig/Lavon Route PRN Reason Start Time Stop Time Status Last Admin Dose Admin Acetaminophen (Tylenol) 650 mg Q4H PRN ORAL FEVER (temp> 100.5F) 05/19/19 15:30 06/18/19 15:29 Albuterol/ Ipratropium (Albuterol/ Ipratropium) 3 ml Q4H PRN HHN Shortness of Breath 05/19/19 15:30 05/24/19 15:29 Chlorhexidine Gluconate (Nkechi-Hex 2%) 1 applic BEDTIME TOPIC 05/20/19 21:00 06/19/19 20:59 Dextrose 1,000 ml @ 75 mls/hr [id number] IV 05/20/19 11:03 06/19/19 11:02 05/20/19 11:04 Dextrose (Dextrose 50%) 25 ml Q30M PRN IV Hypoglycemia 05/20/19 11:45 06/19/19 11:44 Dextrose (Dextrose 50%) 50 ml Q30M PRN IV Hypoglycemia 05/20/19 11:45 06/19/19 11:44 Dopamine HCl/ Dextrose 250 ml @ 0 mls/hr Q24H IV 05/19/19 21:15 06/18/19 21:14 05/20/19 02:20 Heparin Sodium (Porcine) (Heparin 5000 units/ml) 5,000 units EVERY 12 HOURS SUBQ 05/19/19 21:00 06/18/19 20:59 05/20/19 09:24 Insulin Aspart (NovoLOG) Q6HR SUBQ 05/20/19 12:00 06/19/19 11:59 05/20/19 13:20 Lorazepam (Ativan 2mg/ml 1ml) 2 mg Q2H PRN IV For Anxiety 05/19/19 15:30 05/26/19 15:29 Morphine Sulfate (Morphine Sulfate) 4 mg Q4H PRN IVP Severe Pain (Pain Scale 7-10) 05/19/19 15:30 05/26/19 15:29 Piperacillin Sod/ Tazobactam Sod 3.375 gm/Sodium Chloride 110 ml @ 27.5 mls/hr EVERY 8 HOURS IVPB 05/20/19 14:00 05/25/19 13:59 05/20/19 13:45 Sodium Hypochlorite (Dakin's Quarter Strength) 1 applic BID TOPIC 05/20/19 18:00 06/19/19 17:59 Vancomycin HCl (Vanco rx to dose) 1 ea DAILY PRN MISC Per rx protocol 05/19/19 17:30 06/18/19 17:29 Vancomycin HCl 750 mg/Sodium Chloride 275 ml @ 183.333 mls/hr Q12H IVPB 05/20/19 02:00 05/25/19 01:59 05/20/19 13:45 Assessment/Plan Problem List: (1) Septic shock Assessment & Plan: fever, leukocytosis, tachycardia ill appearing in ICU currently on IV Abx as per ID ongoing work up will follow with recs trends labs ICD Codes: A41.9 - Sepsis, unspecified organism; R65.21 - Severe sepsis with septic shock SNOMED: 34767769 (2) Multiple organ failure SNOMED: 73623594 (3) MDRO (multiple drug resistant organisms) resistance ICD Codes: Z16.35 - Resistance to multiple antimicrobial drugs SNOMED: 634168332 (4) Severe anemia ICD Codes: D64.9 - Anemia, unspecified SNOMED: 336007648 (5) Feeding by G-tube ICD Codes: Z93.1 - Gastrostomy status SNOMED: 571095173, 689394860, 080647412 (6) Chronic respiratory failure ICD Codes: J96.10 - Chronic respiratory failure, unspecified whether with hypoxia or hypercapnia SNOMED: 84023523 (7) Hypercalcemia ICD Codes: E83.52 - Hypercalcemia SNOMED: 28134483 (8) Urinary tract infection ICD Codes: N39.0 - Urinary tract infection, site not specified SNOMED: 68056944 (9) Chronic anoxic encephalopathy ICD Codes: G93.1 - Anoxic brain damage, not elsewhere classified SNOMED: 63316377 (10) Decubitus skin ulcer Assessment & Plan: Pt presented on admission with multiple pressure injuries: L earlobe grossly malodorous and necrotic with partial loss of earlobe.Ear canal and posterior to earlobe noted to be purple/red.(L)6cm x (W)1.5cm.Smal amt brown exudate noted. Dry eschar noted to R earlobe (L)1cm. Full thickness Sacral pressure with undermining.100% soft necrosis noted to base of wound and undermined borders. Additional soft necrosis noted to edges and periwound. Wound is malodorous. Small amt black exudate noted.(L)(L)7.5cm x (W)9.7cm. Unstageable pressure injury L heel .Base of wound fluctuant and purple in centre with surrounding dry eschar (L)3.4cm x (W)3.2cm.Non-blanchable erythema periwound. R heel dry and blanchable. Skin Assessed under collar of trach and no areas of concerns noted. Tx.Plan: Cleanse L earlobe with Dakin's 0.25% erin. Apply Dakin's 0.25% moist [id number] and cover with Optifoam drsg Twice Daily and PRN. Cleanse Sacral area with Dakin's 0.25% Erin.Loosely pack wound with Dakin's moist Kerlix. Apply Triad Periwound. Cover with Optifoam drsg. Twice Daily and prn. Apply Betadine to L heel. Cover with Optifoam drsg. Change every 3 days and prn. Reposition at least every 2hours or as tolerated. Off-load heels with pillow. ICD Codes: L89.90 - Pressure ulcer of unspecified site, unspecified stage SNOMED: 179703648 (11) History of sudden cardiac arrest ICD Codes: Z86.74 - Personal history of sudden cardiac arrest SNOMED: 17258601, 211935524 (12) Sepsis ICD Codes: A41.9 - Sepsis, unspecified organism SNOMED: 24827224 (13) ATN (acute tubular necrosis) ICD Codes: N17.0 - Acute kidney failure with tubular necrosis SNOMED: 98870060 (14) Acute and chronic respiratory failure ICD Codes: J96.20 - Acute and chronic respiratory failure, unspecified whether with hypoxia or hypercapnia SNOMED: 34194807 Levon Nunes May 20, 2019 15:53
[2019-05-20] MEDS: Dakin's 0.125% Soln (Quarter Strength) 16oz TOPIC SCH (17:32)
--- NOTE | 2019-05-20 17:45 | History and Physical Report ---
DATE OF ADMISSION: 05/19/2019 CHIEF COMPLAINT: Transferred from the [facility] due to the worsening of respiratory distress. HISTORY OF PRESENT ILLNESS: This is a 69-year-old, very unfortunate, female with past medical history significant for hypertension, dyslipidemia, chronic respiratory failure, vent dependent, status post trach and vent, who has presented to the hospital from nursing facility after was noted with worsening of shortness of breath and the patient is not verbal. History is mostly taken from the [facility] documentation as well as ER note. The patient shortly after initial evaluation has had WBC of 16 and a chest x-ray showed that the patient had left-sided consolidation and the patient was hypotensive. Subsequently, the patient was transferred to the ICU and was admitted to the hospital with acute pneumonia as well as sacral decubitus ulcer stage IV and sepsis as well as pneumonia. PAST MEDICAL HISTORY AND PAST SURGICAL HISTORY: As above. History of hypertension, dyslipidemia, chronic vent dependent, status post trach and PEG, encephalopathy, sacral decubitus ulcer. MEDICATIONS AT HOME: Please refer to medication reconciliation. ALLERGIES: To Benadryl as well as fluphenazine. SOCIAL HISTORY: No smoking, alcohol, or drugs at this time. FAMILY HISTORY: Noncontributory. REVIEW OF SYSTEMS: Unable to obtain secondary to the patient's status. PHYSICAL EXAMINATION: VITAL SIGNS: On admission, temperature 98.6, pulse of 102, respirations 16, and blood pressure 128/64, repeat one was 95/61. GENERAL: The patient is awake, responsive to painful stimuli with open her eyes. HEAD AND NECK: Pupils are reactive to light, anicteric. Neck was supple. Tracheostomy site is intact. LUNGS: Good air entry. No wheezing or rales. Mechanical breath sounds. HEART: Reveals S1, S2. Regular rhythm. No gallops. ABDOMEN: Soft, nondistended, and nontender. Positive bowel sounds. Status post, the patient has PEG, site is intact. RECTAL: Refused and deferred. GENITOURINARY: Refused and deferred. BACK: Has a sacral decubitus ulcer, stage IV with necrotic tissue, foul smell. EXTREMITIES: No cyanosis, clubbing, or edema. Contracted lower extremity was noted as well as upper extremity. NEUROLOGIC: Limited secondary to the patient's status, but the patient is unable to move the extremities. LABORATORY DATA: Admission from the ER is significant for WBC of 19, hemoglobin of 11, hematocrit of 40, and platelets is 407,000. Sodium 147, potassium 5.6, chloride 110, bicarbonate 29, BUN 61, creatinine 0.4, glucose is 456, calcium is 13.1. AST of 70, ALT of 123, alkaline phosphatase was 182. Troponin 0.045 and albumin is 2.1. ABG, pH of 7.30, pCO2 of 57, pO2 of 62, saturating 90%. UA is +2 protein, +1 glucose, and 15 to 20 wbc's, many bacteria. Chest x-ray was noted with increased left lung volume and a parenchymal consolidation since the prior study on 03/14/2019. ASSESSMENT: 1. Sepsis secondary to pneumonia as well as infected decubitus ulcer. 2. Hypotension, most likely secondary to the sepsis and septic shock. 3. Hypertension. 4. Dyslipidemia. 5. Acute on chronic respiratory failure. 6. History of cardiac arrest with anoxic brain injury. 7. COPD. 8. Status post trach and PEG. 9. Infected sacral decubitus ulcer, stage IV, present on admission. PLAN: Admit the patient to ICU. We will follow up with the aggressive IV hydration. At this time, code status is Full Code. Broad-spectrum antibiotics with vancomycin as well as Zosyn. We will follow up with cultures. Discussed case with Dr. Corrigan from Pulmonary Critical Care, Dr. Chadwick Keith from Infectious Disease, and Dr. Niall Levy from Cardiology. We will follow up with the laboratory as well as culture in the morning and DVT prophylaxis, heparin subcutaneous. Mainor Newsome M.D. DR: PHOEBE JOB#: [id number] CC:
--- NOTE | 2019-05-20 17:54 | NUR ---
NURSE NOTES: Blood sugar 286, 6 units given per sliding scale. Turned and repositioned. IVF and GTF infusing well, tolerating well. VSS. Afebrile. Right femoral central line dressing change done.
--- NOTE | 2019-05-20 18:18 | NUR ---
Social Service Note Patient is a long-term resident of [facility] 11/2018 sub-acute unit. Patient with trach, vent and g-tube feedings. Patient is under the care of the Public Guardian, Chadwick Ricci [phone]. SW left a message to confirm he is still the assigned PG for this patient and to clarify the type of conservatorship LPS/Probate. Awaiting a call back. If unable to reach conservator MD to document necessity, risks and benefits and then provide consent for a needed procedure. Patient is full code and full treatment. POLST not signed by PG. Patient will continue to require sub-acute placement upon discharge. Will continue to monitor and assist as needed.
--- NOTE | 2019-05-20 19:15 | NUR ---
HAND-OFF: Report given to Jesus Nolasco RN using SBAR.
--- NOTE | 2019-05-20 19:50 | NUR ---
NURSE NOTES: PATIENT OPEN EYES, LETHARGIC STATUS, ON TRACH TO VENT, AC16/TV600/FIO2 60%/PEEP 5, O2 SATURATION 98% NOTED AT THIS TIME, ABDOMEN SOFT, NO BOWEL MOVEMENT STATUS, G TUBE INTACT AND PATENT, ONGOING VITAL AF 1.2 AT 30ML/HR, KEPT HOB OVER 30 DEGREE, F/C INTACT AND PATENT, YELLOW URINE OUTED, TLC TO RIGHT FEMORAL INTACT AND PATENT, ONGOING D5W AT 75ML/HR AND DOPAMINE 4MCG/KG/MIN VIA TLC, ON P200 BED, MADE LOWER BED POSITION, PROVIDED CALL LIGHT WITHIN REACH, ON BED ALARM, WILL CONTINUE TO MONITOR.
--- NOTE | 2019-05-20 20:15 | Consultation ---
DATE OF CONSULTATION: 05/20/2019 CARDIOLOGY CONSULTATION CONSULTING PHYSICIAN: Niall Levy M.D. REFERRING PHYSICIAN: Mainor Newsome M.D. ADDITIONAL REFERRING PHYSICIAN: Rula Corrigan M.D. REASON FOR CONSULTATION: Shock. HISTORY OF PRESENT ILLNESS: The patient is a 69-year-old lady with history of ventilator-dependent respiratory failure, status post tracheostomy as well as history of dysphagia, status post PEG placement, and chronic encephalopathy, who was brought in by paramedics for increased respiratory distress. The patient has history of multiple decubitus ulcers and is nonverbal, bedridden, and poorly responsive. The patient was then admitted to intensive care unit and was started on pressors. The patient also has extensive decubitus ulcer. REVIEW OF SYSTEMS: Cannot be obtained. PAST MEDICAL HISTORY: As mentioned above. FAMILY HISTORY: Noncontributory. SOCIAL HISTORY: She is a long-term resident. Does not smoke or drink alcohol and nonverbal. PHYSICAL EXAMINATION: VITAL SIGNS: Blood pressure is 95/54 on Levophed, pulse is 78, respirations 16. HEAD AND NECK: Shows no JVD. She is status post tracheostomy. LUNGS: Coarse rhonchi. CARDIOVASCULAR: Shows regular S1 and S2 with no gallop. ABDOMEN: Status post G-tube. EXTREMITIES/SKIN: She has ulcers and sacral decubitus. LABORATORY AND DIAGNOSTIC DATA: EKG showed sinus rhythm with no acute ST-T wave abnormalities. Her labs show white count of 19.7, hemoglobin of 9.3, hematocrit of 30, and platelet count is 414,000. Sodium 155, potassium 3.0, BUN of 29, creatinine of 0.3. Initial BUN was 61.4. Troponin 0.045. ASSESSMENT AND PLAN: 1. Hypotension due to septic shock in this patient with white count of almost 20,000 with multiple decubitus ulcers. The patient also is on the ventilator. The patient is also severely dehydrated with initial BUN of 61, creatinine of 0.4, and sodium of 155. The patient is getting IV fluids as well as IV antibiotic, Levophed, and dopamine. An echocardiogram will also be ordered for further evaluation. 2. Ventilator-dependent respiratory failure, status post tracheostomy. per Dr. Corrigan. 3. Dysphagia, status post PEG placement. 4. Encephalopathy. 5. Chronic decubitus ulcers. Thank you very much for allowing me to participate in the care of this patient. Please do not hesitate to contact me for any questions regarding my evaluation. Niall Levy M.D. DR: TERI JOB#: [id number] CC:
[2019-05-20] MEDS ORDERED: Dyna-Hex 2% Top Sol 2oz TOPIC SCH (21:00)
--- NOTE | 2019-05-20 22:05 | NUR ---
NURSE NOTES: ORAL CARE WAS DONE, NO PAIN NOTED AT THIS TIME.
[2019-05-20] MEDS ORDERED: Vancomycin 1 GM in D5W 275 ML IV SCH (23:00)
[2019-05-21] VITALS (46 sets, daily range): BP systolic 91–133; BP diastolic 52–73
--- NOTE | 2019-05-21 | NUR ---
NURSE NOTES: On dopamine drip 4mcg/kg/min, VSS stabled, no acute distress noted at this time.
[2019-05-21] MEDS: Vancomycin 1gm/D5W 275ml IVPB SCH ×4 (02:10→15:01)
--- NOTE | 2019-05-21 02:10 | NUR ---
NURSE NOTES: PATIENT ASLEEP STATUS, REPOSITIONED.
--- NOTE | 2019-05-21 04:40 | NUR ---
NURSE NOTES: MORNING CARE WAS DONE, SOFT SMALL BOWEL MOVEMENT STATUS.
[2019-05-21] MEDS: Piperacillin/Tazobactam 3.375 GM in NS 110 ML IVPB SCH ×3 (05:39→21:40)
[2019-05-21] MEDS: NovoLOG Insulin Flexpen SUBQ SCH ×4 (05:40→20:45)
--- NOTE | 2019-05-21 05:45 | NUR ---
NURSE NOTES: SEEN THE PATIENT BY DR. GIL, MADE NEW ORDER AND CARRIED OUT.
--- NOTE | 2019-05-21 05:50 | Pulmonolgy Critical Care Note ---
Critical Care - Asmt/Plan Problems: (1) Acute and chronic respiratory failure (2) Septic shock (3) Multiple organ failure (4) Feeding by G-tube (5) Chronic anoxic encephalopathy (6) Decubitus skin ulcer (7) History of sudden cardiac arrest (8) Sepsis (9) ATN (acute tubular necrosis) Respiratory: monitor respiratory rate, adjust FIO2, CXR Cardiac: continue pressors, continue to monitor HR/BP Renal: F/U I&O, check electrolytes Infectious Disease: check cultures Gastrointestinal: continue feedings/current rate, hold feedings Hematologic: monitor H/H, transfuse if hgb<8.5 Neurologic: PRN Ativan, keep patient comfortable Affect: PRN ativan Critical Care - Objective Last 24 Hour Vital Signs Date Time Temp Pulse Resp B/P (MAP) Pulse Ox O2 Delivery O2 Flow Rate FiO2 05/21/19 05:14 78 17 50 70 05/21/19 03:21 76 18 50 70 05/21/19 02:00 73 18 98/62 (74) 100 05/21/19 02:00 98/62 05/21/19 01:30 76 19 99/63 (75) 100 05/21/19 01:11 76 19 60 70 05/21/19 01:00 100/65 05/21/19 01:00 74 19 100/65 (77) 100 05/21/19 00:30 77 19 95/63 (74) 100 05/21/19 00:00 98/59 05/21/19 00:00 98.0 78 20 98/59 (72) 99 05/21/19 00:00 Mechanical Ventilator 05/20/19 23:30 82 20 94/53 (67) 98 05/20/19 23:12 88 19 60 70 05/20/19 23:05 86 05/20/19 23:00 95/59 05/20/19 23:00 77 19 95/59 (71) 99 05/20/19 22:30 77 19 99/62 (74) 98 05/20/19 22:00 98/60 05/20/19 22:00 75 19 98/60 (73) 98 05/20/19 21:30 74 19 100/63 (75) 97 05/20/19 21:00 79 20 94/64 (74) 100 6/21/19 21:00 98/64 05/20/19 20:49 78 17 60 70 05/20/19 20:30 77 20 94/64 (74) 96 05/20/19 20:00 98.0 81 20 100/61 (74) 99 05/20/19 20:00 60 05/20/19 20:00 Mechanical Ventilator 05/20/19 20:00 100/61 05/20/19 19:40 82 05/20/19 19:33 89 17 60 70 05/20/19 19:30 88 17 99/63 (75) 100 05/20/19 19:00 76 16 97/60 (72) 100 05/20/19 19:00 97/60 05/20/19 18:18 102/62 05/20/19 18:00 75 16 102/62 (75) 100 05/20/19 17:41 78 19 70 05/20/19 17:30 74 16 103/64 (77) 100 05/20/19 17:00 98.9 73 16 100/65 (77) 100 05/20/19 17:00 98.6 79 16 105/65 (78) 100 05/20/19 16:30 74 16 103/62 (76) 100 05/20/19 16:00 70 05/20/19 16:00 74 16 103/69 (80) 100 05/20/19 16:00 74 05/20/19 15:30 78 20 92/62 (72) 100 05/20/19 15:00 77 19 106/65 (79) 100 05/20/19 15:00 75 19 70 05/20/19 14:30 78 19 103/68 (80) 100 05/20/19 14:00 79 20 101/66 (78) 100 05/20/19 13:30 82 20 91/58 (69) 100 05/20/19 12:30 76 19 106/62 (77) 100 05/20/19 12:00 98.9 77 16 115/68 (84) 100 05/20/19 12:00 70 05/20/19 12:00 81 05/20/19 11:30 80 16 114/67 (83) 100 05/20/19 11:22 76 19 70 05/20/19 11:00 76 16 107/61 (76) 100 05/20/19 10:30 79 16 107/61 (76) 100 05/20/19 10:00 81 16 99/61 (74) 100 05/20/19 09:30 83 16 89/54 (66) 100 05/20/19 09:12 78 16 70 05/20/19 09:00 82 16 107/61 (76) 100 05/20/19 08:30 82 16 107/61 (76) 100 05/20/19 08:00 77 16 95/54 (68) 100 05/20/19 08:00 70 05/20/19 08:00 76 05/20/19 07:51 77 16 70 05/20/19 07:30 98.6 77 16 95/56 (69) 100 05/20/19 07:00 78 16 95/54 (68) 100 05/20/19 06:00 82 16 95/54 (68) 100 Status: obtunded Condition: critical HEENT: atraumatic Neck: full ROM Heart: HR/BP stable, HR/BP unstable Abdomen: soft, non-tender, feeding tube Extremities: edema Micro: Microbiology Date/Time Source Procedure Growth Status 05/19/19 14:00 Blood Blood Culture - Preliminary Gram Negative Dominic Resulted 05/19/19 13:45 Blood Blood Culture - Preliminary Gram Negative Dominic Resulted 05/19/19 15:46 Nasal Nares MRSA Culture - Final NO METHICILLIN RESISTANT STAPH AUREUS... Complete 05/19/19 15:30 Urine,Clean Catch Urine Culture - Preliminary Resulted Accucheck: 263 Critical Care - Subjective ROS Limited/Unobtainable: No Condition: critical EKG Rhythm: Sinus Rhythm FI02: 50 Vent Support Breath Rate: 16 Vent Support Mode: AC Vent Tidal Volume: 600 Sputum Amount: Moderate PEEP: 5.0 PIP: 29 Tube Feeding Amount: 40 I&O: Intake and Output 05/20/19 05/21/19 19:00 07:00 Intake Total 1640.8803 ml 941.203 ml Output Total 1275 ml 555 ml Balance 365.8803 ml 386.203 ml Intake Free Water 160 ml 50 ml IV Total 1240.8803 ml 621.203 ml Tube Feeding 240 ml 270 ml Output Urine Total 1275 ml 555 ml Labs: Laboratory Tests Test 05/21/19 01:00 Vancomycin Level Trough 11.3 ug/mL (5.0-12.0) Rula Corrigan MD May 21, 2019 05:50
--- NOTE | 2019-05-21 05:56 | NUR ---
Pt vent dependent with trache portex 7 vent with settings: AC16/ VT600/ Peep5/ Fio2.50. Lung sounds been coarse/ diminished suctioned for small amount white secretions. Tracheostomy performed per policy airway remans patent. will continue to monitor.
[2019-05-21 05:57] LABS: HEMATOCRIT 30.5 % (37.0-47.0); HEMOGLOBIN 9.3 G/DL (12.0-16.0); MEAN CORPUSCULAR VOLUME 85 FL (80-99); PLATELET COUNT 417 K/UL (150-450); RED BLOOD COUNT 3.57 M/UL (4.20-5.40); RED CELL DISTRIBUTION WIDTH 17.6 % (11.6-14.8); WHITE BLOOD COUNT 17.6 K/UL (4.8-10.8)
[2019-05-21 06:17] LABS: ALANINE AMINOTRANSFERASE 76 U/L (12-78); ALBUMIN 1.7 G/DL (3.4-5.0); ALBUMIN/GLOBULIN RATIO 0.3 (1.0-2.7); ALKALINE PHOSPHATASE 142 U/L (46-116); ANION GAP 12 mmol/L (5-15); ASPARTATE AMINO TRANSFERASE 40 U/L (15-37); BILIRUBIN,TOTAL 0.2 MG/DL (0.2-1.0); BLOOD UREA NITROGEN 18 mg/dL (7-18); CALCIUM 11.2 MG/DL (8.5-10.1); CARBON DIOXIDE 25 MMOL/L (21-32); CHLORIDE 120 MMOL/L (98-107); CREATININE 0.4 MG/DL (0.55-1.30); PHOSPHORUS 1.6 MG/DL (2.5-4.9); SODIUM 156 MMOL/L (136-145)
[2019-05-21 06:30] LABS: POTASSIUM 2.6 MMOL/L (3.5-5.1)
--- NOTE | 2019-05-21 07:08 | NUR ---
HAND-OFF: Report given to DB JOLLEY.
--- NOTE | 2019-05-21 07:15 | NUR ---
NURSE NOTES: Received pt from DB Lee. patient is obtunded, no response to deep pain stimuli. Pupils reactive but sluggish. FLACC 0/10. Trach to vent on Portex 7.0, vent settings AC 16/TV 600/FIo2 40%/PEEP 5, Spo2 100%, RR 16. Course rhonchi bilateral b/s. minimal klein secretions. PEG running Vital 1.2 AF @50ml/hr, HOB 35 degrees, no residual. FC draining yellow urine with minimal sediments. Right femoral TLC running dopamine@4mcg/kg/hr and D5W@75ml/hr. SBP >90, MAP >65. Dressing on sacral, bilateral ears and bilateral heels clean and intact. Pictures taken this morning. Bed locked, alarmed and in lowest position. Will continue plan of care.
--- NOTE | 2019-05-21 07:57 | NUR ---
RESPIRATORY NOTE: received pt on vent, trached with portex [address] pt is in no apparent resp distress. Vt between 380-450. trach is secured via trach tie/guard and on current vent settings. ambu bag at bedside with alarms on and audible. will cont to monitor.
--- NOTE | 2019-05-21 08:30 | NUR ---
NURSE NOTES: Notified Dr. Lizarraga regarding increasing sodium levels, said he will look into it. no new orders given at this time.
[2019-05-21] MEDS: Dakin's 0.125% Soln (Quarter Strength) 16oz TOPIC SCH ×2 (09:03→17:48)
[2019-05-21] MEDS: Heparin 5000 units/ml inj SUBQ SCH ×2 (09:03→20:45)
--- NOTE | 2019-05-21 09:15 | NUR ---
NURSE NOTES: Tolerating GTF well, oral care given, turned and repositioned. FC draining well. 40meq K-dur given, another 40meq k-dur due at 1800. Afebrile.
--- NOTE | 2019-05-21 09:28 | NUR ---
RESPIRATORY NOTE: attempted to wean pt on CPAP PS5 but pt's Vt were 80 mL. pt's current set Vt 600, but pt's Vt 350-450 as noted earlier. RN notified. returned pt on AC mode. will cont to monitor.
--- NOTE | 2019-05-21 10:59 | Consultation ---
Consult Note Consult Note ASKED TO EVAL FOR ELECTROLYTES AND FLUID MANAGEMENT, and HYPERCALCEMIA examined data reviewed discussed with RN . Assessment/Plan Electrolyte imbalance: High Na and Low K Severe Hypercalcemia Severe HypoAlbuminemia DM Others: Acute and chronic respiratory failure Septic shock Multiple organ failure Feeding by G-tube Chronic anoxic encephalopathy Decubitus skin ulcer History of sudden cardiac arrest ATN (acute tubular necrosis) and Oliguria Plan; Aredia 90 mg D5W 100 cc / h K Phos IV monitor Lytes and Ca and Phos per orders discussed with RN Palomo Lizarraga MD May 21, 2019 10:59
--- NOTE | 2019-05-21 11:05 | NUR ---
NURSE NOTES: Turned and repositioned. Kept dry and clean. Tolerating GTF well
[2019-05-21] MEDS ORDERED: Dakin's 0.125% Soln (Quarter Strength) 16oz TOPIC SCH (12:00)
[2019-05-21] MEDS ORDERED: Pamidronate Disodium Inj 60 MG in Sodium Chloride 550 ML IVPB ONE (12:00)
--- NOTE | 2019-05-21 12:07 | Cardiac Electrophysiology PN ---
Assessment/Plan Assessment/Plan 1. Septic shock with white count of 20,000 with multiple decubitus ulcers. The patient is also severely dehydrated with initial BUN of 61, creatinine of 0.4, and sodium of 155. The patient is getting IV fluids as well as IV antibiotic on 2 mcg dopamine. Echo EF 65% 2. Ventilator-dependent respiratory failure, status post tracheostomy. 3. Dysphagia, status post PEG placement. 4. Encephalopathy. 5. Chronic decubitus ulcers. Needs sacral debridement FU Dr Nunes 6. Dehydration and hypernatremia. DW RN Subjective Subjective On Dopamine 2 mcg in ICU. In SR. On the vent via trach. Objective Last 24 Hour Vital Signs Date Time Temp Pulse Resp B/P (MAP) Pulse Ox O2 Delivery O2 Flow Rate FiO2 05/21/19 11:04 82 19 40 05/21/19 09:30 75 18 109/69 (82) 100 05/21/19 09:27 100 05/21/19 09:25 76 19 40 05/21/19 09:00 76 18 121/65 (83) 100 05/21/19 08:30 75 18 105/62 (76) 100 05/21/19 08:00 74 05/21/19 08:00 60 05/21/19 08:00 Mechanical Ventilator 05/21/19 08:00 75 18 100/67 (78) 100 05/21/19 07:54 79 20 50 70 05/21/19 07:30 78 19 105/62 (76) 100 05/21/19 07:00 98.0 74 18 116/59 (78) 100 05/21/19 07:00 108/62 05/21/19 06:30 80 18 105/62 (76) 100 05/21/19 06:00 111/70 05/21/19 06:00 76 19 111/70 (84) 100 05/21/19 05:30 79 17 108/71 (83) 99 05/21/19 05:14 78 17 50 70 05/21/19 05:00 115/70 05/21/19 05:00 79 16 115/70 (85) 100 05/21/19 04:30 71 17 133/73 (93) 100 05/21/19 04:00 97.8 72 17 117/68 (84) 99 05/21/19 04:00 117/68 05/21/19 04:00 Mechanical Ventilator 05/21/19 04:00 60 05/21/19 03:40 75 05/21/19 03:30 72 19 108/64 (79) 99 05/21/19 03:21 76 18 50 70 05/21/19 03:00 99/63 05/21/19 03:00 78 19 99/63 (75) 100 05/21/19 02:30 73 19 101/62 (75) 100 05/21/19 02:00 73 18 98/62 (74) 100 05/21/19 02:00 98/62 05/21/19 01:30 76 19 99/63 (75) 100 05/21/19 01:11 76 19 60 70 05/21/19 01:00 100/65 05/21/19 01:00 74 19 100/65 (77) 100 05/21/19 00:30 77 19 95/63 (74) 100 05/21/19 00:00 60 05/21/19 00:00 98/59 05/21/19 00:00 98.0 78 20 98/59 (72) 99 05/21/19 00:00 Mechanical Ventilator 05/20/19 23:30 82 20 94/53 (67) 98 05/20/19 23:12 88 19 60 70 05/20/19 23:05 86 05/20/19 23:00 95/59 05/20/19 23:00 77 19 95/59 (71) 99 05/20/19 22:30 77 19 99/62 (74) 98 05/20/19 22:00 98/60 05/20/19 22:00 75 19 98/60 (73) 98 05/20/19 21:30 74 19 100/63 (75) 97 05/20/19 21:00 79 20 94/64 (74) 100 05/20/19 21:00 98/64 05/20/19 20:49 78 17 60 70 05/20/19 20:30 77 20 94/64 (74) 96 05/20/19 20:00 98.0 81 20 100/61 (74) 99 05/20/19 20:00 60 05/20/19 20:00 Mechanical Ventilator 05/20/19 20:00 100/61 05/20/19 19:40 82 05/20/19 19:33 89 17 60 70 05/20/19 19:30 88 17 99/63 (75) 100 05/20/19 19:00 76 16 97/60 (72) 100 05/20/19 19:00 97/60 05/20/19 18:18 102/62 05/20/19 18:00 75 16 102/62 (75) 100 05/20/19 17:41 78 19 70 05/20/19 17:30 74 16 103/64 (77) 100 05/20/19 17:00 98.9 73 16 100/65 (77) 100 05/20/19 17:00 98.6 79 16 105/65 (78) 100 05/20/19 16:30 74 16 103/62 (76) 100 05/20/19 16:00 70 05/20/19 16:00 74 16 103/69 (80) 100 05/20/19 16:00 Mechanical Ventilator 05/20/19 16:00 74 05/20/19 15:30 78 20 92/62 (72) 100 05/20/19 15:00 77 19 106/65 (79) 100 05/20/19 15:00 75 19 70 05/20/19 14:30 78 19 103/68 (80) 100 05/20/19 14:00 79 20 101/66 (78) 100 05/20/19 13:30 82 20 91/58 (69) 100 05/20/19 12:30 76 19 106/62 (77) 100 Intake and Output 05/20/19 05/21/19 19:00 07:00 Intake Total 1640.8803 ml 1914.848 ml Output Total 1275 ml 920 ml Balance 365.8803 ml 994.848 ml Intake Free Water 160 ml 100 ml IV Total 1240.8803 ml 1344.848 ml Tube Feeding 240 ml 470 ml Output Urine Total 1275 ml 920 ml # Bowel Movements 1 Laboratory Tests Test 05/21/19 01:00 05/21/19 04:30 Vancomycin Level Trough 11.3 ug/mL (5.0-12.0) White Blood Count 17.6 K/UL (4.8-10.8) H Red Blood Count 3.57 M/UL (4.20-5.40) L Hemoglobin 9.3 G/DL (12.0-16.0) L Hematocrit 30.5 % (37.0-47.0) L Mean Corpuscular Volume 85 FL (80-99) Mean Corpuscular Hemoglobin 26.0 PG (27.0-31.0) L Mean Corpuscular Hemoglobin Concent 30.5 G/DL (32.0-36.0) L Red Cell Distribution Width 17.6 % (11.6-14.8) H Platelet Count 417 K/UL (150-450) Mean Platelet Volume 5.2 FL (6.5-10.1) L Neutrophils (%) (Auto) % (45.0-75.0) Lymphocytes (%) (Auto) % (20.0-45.0) Monocytes (%) (Auto) % (1.0-10.0) Eosinophils (%) (Auto) % (0.0-3.0) Basophils (%) (Auto) % (0.0-2.0) Differential Total Cells Counted 100 Neutrophils % (Manual) 89 % (45-75) H Lymphocytes % (Manual) 8 % (20-45) L Monocytes % (Manual) 2 % (1-10) Eosinophils % (Manual) 1 % (0-3) Basophils % (Manual) 0 % (0-2) Band Neutrophils 0 % (0-8) Platelet Estimate Adequate Platelet Morphology Normal Hypochromasia 1+ Anisocytosis 1+ Erythrocyte Sedimentation Rate 105 MM/HR (0-30) H Sodium Level 156 MMOL/L (136-145) H Potassium Level 2.6 MMOL/L (3.5-5.1) *L Chloride Level 120 MMOL/L (98-107) H Carbon Dioxide Level 25 MMOL/L (21-32) Anion Gap 12 mmol/L (5-15) Blood Urea Nitrogen 18 mg/dL (7-18) Creatinine 0.4 MG/DL (0.55-1.30) L Estimat Glomerular Filtration Rate > 60 mL/min (>60) Glucose Level 292 MG/DL (74-106) H Hemoglobin A1c 7.3 % (4.3-6.0) H Calcium Level 11.2 MG/DL (8.5-10.1) H Phosphorus Level 1.6 MG/DL (2.5-4.9) L Magnesium Level 2.0 MG/DL (1.8-2.4) Total Bilirubin 0.2 MG/DL (0.2-1.0) Aspartate Amino Transf (AST/SGOT) 40 U/L (15-37) H Alanine Aminotransferase (ALT/SGPT) 76 U/L (12-78) Alkaline Phosphatase 142 U/L (46-116) H Troponin I 0.000 ng/mL (0.000-0.056) C-Reactive Protein, Quantitative 19.2 mg/dL (0.00-0.90) H Total Protein 6.6 G/DL (6.4-8.2) Albumin 1.7 G/DL (3.4-5.0) L Globulin 4.9 g/dL Albumin/Globulin Ratio 0.3 (1.0-2.7) L Microbiology Date/Time Source Procedure Growth Status 05/19/19 14:00 Blood Blood Culture - Preliminary Gram Negative Dominic Resulted 05/19/19 13:45 Blood Blood Culture - Preliminary Gram Negative Dominic Resulted 05/19/19 15:46 Nasal Nares MRSA Culture - Final NO METHICILLIN RESISTANT STAPH AUREUS... Complete 05/19/19 15:30 Urine,Clean Catch Urine Culture - Final Mixed Urogenital Contaminants Complete 05/19/19 15:46 Rectum VRE Culture - Final Enterococcus Faecium - Vre Complete 05/19/19 15:46 Rectum - Final NO CARBAPENEM-RESISTANT ENTEROBACTERI... Complete Objective HEAD AND NECK: No JVD. She is status post tracheostomy. LUNGS: Coarse rhonchi. CARDIOVASCULAR: Shows regular S1 and S2 with no gallop. ABDOMEN: Status post G-tube. EXTREMITIES/SKIN: She has ulcers and sacral decubitus. Niall Levy MD May 21, 2019 12:07
[2019-05-21] MEDS ORDERED: Potassium Phosphate 30 MM in NS 275 ML IV ONE (13:00)
--- NOTE | 2019-05-21 13:00 | NUR ---
NURSE NOTES: Turned Dopamine gtt as patient SBP >90 and MAP >65 on 2mcg/kg/hr. BP 102/61, MAP 71.
--- NOTE | 2019-05-21 14:50 | Internal Med Progress Note ---
Subjective Date of Service: May 21, 2019 Physician Name Chase Sweeney Attending Physician Mainor Newsome MD Current Medications Medications (Trade) Dose Ordered Sig/Lavon Route PRN Reason Start Time Stop Time Status Last Admin Dose Admin Acetaminophen (Tylenol) 650 mg Q4H PRN ORAL FEVER (temp> 100.5F) 05/19/19 15:30 06/18/19 15:29 Albuterol/ Ipratropium (Albuterol/ Ipratropium) 3 ml Q4H PRN HHN Shortness of Breath 05/19/19 15:30 05/24/19 15:29 Chlorhexidine Gluconate (Nkechi-Hex 2%) 1 applic BEDTIME TOPIC 05/20/19 21:00 06/19/19 20:59 05/20/19 20:32 Dextrose 1,000 ml @ 100 mls/hr Q10H IV 05/21/19 11:30 06/20/19 11:29 05/21/19 11:33 Dextrose (Dextrose 50%) 25 ml Q30M PRN IV Hypoglycemia 05/20/19 11:45 06/19/19 11:44 Dextrose (Dextrose 50%) 50 ml Q30M PRN IV Hypoglycemia 05/20/19 11:45 06/19/19 11:44 Dopamine HCl/ Dextrose 250 ml @ 0 mls/hr Q24H IV 05/19/19 21:15 06/18/19 21:14 05/20/19 18:18 Heparin Sodium (Porcine) (Heparin 5000 units/ml) 5,000 units EVERY 12 HOURS SUBQ 05/19/19 21:00 06/18/19 20:59 05/21/19 09:03 Insulin Aspart (NovoLOG) Q6HR SUBQ 05/20/19 12:00 06/19/19 11:59 05/21/19 12:13 Lorazepam (Ativan 2mg/ml 1ml) 2 mg Q2H PRN IV For Anxiety 05/19/19 15:30 05/26/19 15:29 Morphine Sulfate (Morphine Sulfate) 4 mg Q4H PRN IVP Severe Pain (Pain Scale 7-10) 05/19/19 15:30 05/26/19 15:29 Pamidronate Disodium 60 mg/ Sodium Chloride 550 ml @ 137.5 mls/ hr ONCE ONCE IVPB 05/21/19 12:00 05/21/19 15:59 05/21/19 12:13 Piperacillin Sod/ Tazobactam Sod 3.375 gm/Sodium Chloride 110 ml @ 27.5 mls/hr EVERY 8 HOURS IVPB 05/20/19 14:00 05/25/19 13:59 05/21/19 05:39 Potassium Phosphate 30 mm/ Sodium Chloride 285 ml @ 47.5 mls/hr ONCE ONCE IV 05/21/19 13:00 05/21/19 18:59 05/21/19 13:09 Sodium Hypochlorite (Dakin's Quarter Strength) 1 applic BID@0000,1200 TOPIC 05/21/19 12:00 06/20/19 11:59 05/21/19 12:04 Vancomycin HCl (Vanco rx to dose) 1 ea DAILY PRN MISC Per rx protocol 05/19/19 17:30 06/18/19 17:29 Vancomycin HCl 1 gm/Dextrose 275 ml @ 183.708 mls/hr Q12H IVPB 05/21/19 02:00 05/26/19 01:59 05/21/19 02:10 Allergies: Coded Allergies: DIPHENHYDRAMINE (Verified Allergy, Unknown, 02/24/19) FLUPHENAZINE (Verified Allergy, Unknown, 02/24/19) ROS Limited/Unobtainable: Yes Subjective 69 YO M admitted with respiratory failure and pneumonia. Now gram neg sepsis. Intubated. Cover for Int Isael-Dr Newsome. ICU Objective Last Vital Signs Date Time Temp Pulse Resp B/P (MAP) Pulse Ox O2 Delivery O2 Flow Rate FiO2 05/21/19 13:20 71 18 40 05/21/19 12:00 Mechanical Ventilator 05/21/19 12:00 98/60 05/21/19 12:00 100 05/21/19 07:00 98.0 05/20/19 00:00 70.0 Laboratory Tests Test 05/21/19 01:00 05/21/19 04:30 Vancomycin Level Trough 11.3 ug/mL (5.0-12.0) White Blood Count 17.6 K/UL (4.8-10.8) H Red Blood Count 3.57 M/UL (4.20-5.40) L Hemoglobin 9.3 G/DL (12.0-16.0) L Hematocrit 30.5 % (37.0-47.0) L Mean Corpuscular Volume 85 FL (80-99) Mean Corpuscular Hemoglobin 26.0 PG (27.0-31.0) L Mean Corpuscular Hemoglobin Concent 30.5 G/DL (32.0-36.0) L Red Cell Distribution Width 17.6 % (11.6-14.8) H Platelet Count 417 K/UL (150-450) Mean Platelet Volume 5.2 FL (6.5-10.1) L Neutrophils (%) (Auto) % (45.0-75.0) Lymphocytes (%) (Auto) % (20.0-45.0) Monocytes (%) (Auto) % (1.0-10.0) Eosinophils (%) (Auto) % (0.0-3.0) Basophils (%) (Auto) % (0.0-2.0) Differential Total Cells Counted 100 Neutrophils % (Manual) 89 % (45-75) H Lymphocytes % (Manual) 8 % (20-45) L Monocytes % (Manual) 2 % (1-10) Eosinophils % (Manual) 1 % (0-3) Basophils % (Manual) 0 % (0-2) Band Neutrophils 0 % (0-8) Platelet Estimate Adequate Platelet Morphology Normal Hypochromasia 1+ Anisocytosis 1+ Erythrocyte Sedimentation Rate 105 MM/HR (0-30) H Sodium Level 156 MMOL/L (136-145) H Potassium Level 2.6 MMOL/L (3.5-5.1) *L Chloride Level 120 MMOL/L (98-107) H Carbon Dioxide Level 25 MMOL/L (21-32) Anion Gap 12 mmol/L (5-15) Blood Urea Nitrogen 18 mg/dL (7-18) Creatinine 0.4 MG/DL (0.55-1.30) L Estimat Glomerular Filtration Rate > 60 mL/min (>60) Glucose Level 292 MG/DL (74-106) H Hemoglobin A1c 7.3 % (4.3-6.0) H Calcium Level 11.2 MG/DL (8.5-10.1) H Phosphorus Level 1.6 MG/DL (2.5-4.9) L Magnesium Level 2.0 MG/DL (1.8-2.4) Total Bilirubin 0.2 MG/DL (0.2-1.0) Aspartate Amino Transf (AST/SGOT) 40 U/L (15-37) H Alanine Aminotransferase (ALT/SGPT) 76 U/L (12-78) Alkaline Phosphatase 142 U/L (46-116) H Troponin I 0.000 ng/mL (0.000-0.056) C-Reactive Protein, Quantitative 19.2 mg/dL (0.00-0.90) H Total Protein 6.6 G/DL (6.4-8.2) Albumin 1.7 G/DL (3.4-5.0) L Globulin 4.9 g/dL Albumin/Globulin Ratio 0.3 (1.0-2.7) L Microbiology Date/Time Source Procedure Growth Status 05/19/19 14:00 Blood Blood Culture - Preliminary Gram Negative Dominic Resulted 05/19/19 13:45 Blood Blood Culture - Preliminary Gram Negative Dominic Resulted 05/19/19 15:46 Nasal Nares MRSA Culture - Final NO METHICILLIN RESISTANT STAPH AUREUS... Complete 05/19/19 15:30 Urine,Clean Catch Urine Culture - Final Mixed Urogenital Contaminants Complete 05/19/19 15:46 Rectum VRE Culture - Final Enterococcus Faecium - Vre Complete 05/19/19 15:46 Rectum - Final NO CARBAPENEM-RESISTANT ENTEROBACTERI... Complete Intake and Output 05/20/19 05/21/19 19:00 07:00 Intake Total 1640.8803 ml 1914.848 ml Output Total 1275 ml 920 ml Balance 365.8803 ml 994.848 ml Intake Free Water 160 ml 100 ml IV Total 1240.8803 ml 1344.848 ml Tube Feeding 240 ml 470 ml Output Urine Total 1275 ml 920 ml # Bowel Movements 1 Objective PHYSICAL EXAMINATION: GENERAL: The patient is awake, responsive to painful stimuli with open her eyes. HEAD AND NECK: Pupils are reactive to light, anicteric. Neck was supple. Tracheostomy site is intact. LUNGS: Good air entry. No wheezing or rales. Mechanical breath sounds. HEART: Reveals S1, S2. Regular rhythm. No gallops. ABDOMEN: Soft, nondistended, and nontender. Positive bowel sounds. Status post, the patient has PEG, site is intact. RECTAL: Refused and deferred. GENITOURINARY: Refused and deferred. BACK: Has a sacral decubitus ulcer, stage IV with necrotic tissue, foul smell. EXTREMITIES: No cyanosis, clubbing, or edema. Contracted lower extremity was noted as well as upper extremity. NEUROLOGIC: Limited secondary to the patient's status, but the patient is unable to move the extremities. Assessment/Plan Assessment/Plan ASSESSMENT: 1. Sepsis secondary to pneumonia as well as infected decubitus ulcer. 2. Hypotension, most likely secondary to the sepsis and septic shock. 3. Hypertension. 4. Dyslipidemia. 5. Acute on chronic respiratory failure. 6. History of cardiac arrest with anoxic brain injury. 7. COPD. 8. Status post trach and PEG. 9. Infected sacral decubitus ulcer, stage IV, present on admission. PLAN: 1. Admit the patient to ICU. 2. At this time, code status is Full Code. 3. sepsis=gram neg dominic.Broad-spectrum antibiotics with vancomycin as well as Zosyn. Await culture result. 4. Pneumonia/respiratory failure. Discussed case with Dr. Corrigan from Pulmonary Critical Care 5. D/W Dr. Chadwick Keith from Infectious Disease and Dr. Niall Levy from Cardiology. Chase Sweeney MD May 21, 2019 14:50
--- NOTE | 2019-05-21 17:04 | Surgery Progress Note ---
Surgery Progress Note Subjective Additional Comments ill appearing in ICU Objective Last 24 Hour Vital Signs Date Time Temp Pulse Resp B/P (MAP) Pulse Ox O2 Delivery O2 Flow Rate FiO2 05/21/19 16:46 69 16 40 05/21/19 16:00 60 05/21/19 16:00 74 05/21/19 16:00 Mechanical Ventilator 05/21/19 16:00 73 16 105/60 (75) 100 05/21/19 15:17 74 16 40 05/21/19 15:00 70 16 106/52 (70) 100 05/21/19 14:45 73 16 106/63 (77) 100 05/21/19 14:30 73 16 104/65 (78) 100 05/21/19 14:15 73 16 104/65 (78) 100 05/21/19 14:00 70 16 107/67 (80) 100 05/21/19 13:45 74 16 105/64 (78) 100 05/21/19 13:30 77 16 102/63 (76) 100 05/21/19 13:20 71 18 40 05/21/19 13:15 75 18 106/52 (70) 100 05/21/19 13:00 71 18 98/63 (75) 100 05/21/19 12:30 98.9 72 18 97/62 (74) 100 05/21/19 12:00 72 05/21/19 12:00 Mechanical Ventilator 05/21/19 12:00 98/60 05/21/19 12:00 70 16 106/52 (70) 100 05/21/19 12:00 60 05/21/19 11:30 76 16 111/63 (79) 100 05/21/19 11:04 82 19 40 05/21/19 11:00 79 18 110/61 (77) 100 05/21/19 11:00 110/61 05/21/19 10:30 82 20 109/65 (80) 99 05/21/19 10:00 74 18 111/68 (82) 100 05/21/19 10:00 111/66 05/21/19 09:30 75 18 109/69 (82) 100 05/21/19 09:27 100 05/21/19 09:25 76 19 40 05/21/19 09:00 76 18 121/65 (83) 100 05/21/19 09:00 121/65 6/22/19 08:30 75 18 105/62 (76) 100 05/21/19 08:00 74 05/21/19 08:00 100/67 05/21/19 08:00 60 05/21/19 08:00 Mechanical Ventilator 05/21/19 08:00 75 18 100/67 (78) 100 05/21/19 07:54 79 20 50 70 05/21/19 07:30 78 19 105/62 (76) 100 05/21/19 07:00 98.0 74 18 116/59 (78) 100 05/21/19 07:00 108/62 05/21/19 06:30 80 18 105/62 (76) 100 05/21/19 06:00 111/70 05/21/19 06:00 76 19 111/70 (84) 100 05/21/19 05:30 79 17 108/71 (83) 99 05/21/19 05:14 78 17 50 70 05/21/19 05:00 115/70 05/21/19 05:00 79 16 115/70 (85) 100 05/21/19 04:30 71 17 133/73 (93) 100 05/21/19 04:00 97.8 72 17 117/68 (84) 99 05/21/19 04:00 117/68 05/21/19 04:00 Mechanical Ventilator 05/21/19 04:00 60 05/21/19 03:40 75 05/21/19 03:30 72 19 108/64 (79) 99 05/21/19 03:21 76 18 50 70 05/21/19 03:00 99/63 05/21/19 03:00 78 19 99/63 (75) 100 05/21/19 02:30 73 19 101/62 (75) 100 05/21/19 02:00 73 18 98/62 (74) 100 05/21/19 02:00 98/62 05/21/19 01:30 76 19 99/63 (75) 100 05/21/19 01:11 76 19 60 70 05/21/19 01:00 100/65 05/21/19 01:00 74 19 100/65 (77) 100 05/21/19 00:30 77 19 95/63 (74) 100 6/22/19 00:00 60 05/21/19 00:00 98/59 05/21/19 00:00 98.0 78 20 98/59 (72) 99 05/21/19 00:00 Mechanical Ventilator 05/20/19 23:30 82 20 94/53 (67) 98 05/20/19 23:12 88 19 60 70 05/20/19 23:05 86 05/20/19 23:00 95/59 05/20/19 23:00 77 19 95/59 (71) 99 05/20/19 22:30 77 19 99/62 (74) 98 05/20/19 22:00 98/60 05/20/19 22:00 75 19 98/60 (73) 98 05/20/19 21:30 74 19 100/63 (75) 97 05/20/19 21:00 79 20 94/64 (74) 100 05/20/19 21:00 98/64 05/20/19 20:49 78 17 60 70 05/20/19 20:30 77 20 94/64 (74) 96 05/20/19 20:00 98.0 81 20 100/61 (74) 99 05/20/19 20:00 60 05/20/19 20:00 Mechanical Ventilator 05/20/19 20:00 100/61 05/20/19 19:40 82 05/20/19 19:33 89 17 60 70 05/20/19 19:30 88 17 99/63 (75) 100 05/20/19 19:00 76 16 97/60 (72) 100 05/20/19 19:00 97/60 05/20/19 18:18 102/62 05/20/19 18:00 75 16 102/62 (75) 100 05/20/19 17:41 78 19 70 05/20/19 17:30 74 16 103/64 (77) 100 I&O Intake and Output 05/20/19 05/21/19 18:59 06:59 Intake Total 1689.8943 ml 1877.348 ml Output Total 1235 ml 940 ml Balance 454.8943 ml 937.348 ml Intake Free Water 160 ml 100 ml IV Total 1319.8943 ml 1317.348 ml Tube Feeding 210 ml 460 ml Output Urine Total 1235 ml 940 ml # Bowel Movements 1 Dressing: other Wound: other Drains: other Cardiovascular: RSR Respiratory: decreased breath sounds Abdomen: soft, present bowel sounds, non-distended Extremities: no cyanosis, other Laboratory Tests Test 05/21/19 01:00 05/21/19 04:30 Vancomycin Level Trough 11.3 ug/mL (5.0-12.0) White Blood Count 17.6 K/UL (4.8-10.8) H Red Blood Count 3.57 M/UL (4.20-5.40) L Hemoglobin 9.3 G/DL (12.0-16.0) L Hematocrit 30.5 % (37.0-47.0) L Mean Corpuscular Volume 85 FL (80-99) Mean Corpuscular Hemoglobin 26.0 PG (27.0-31.0) L Mean Corpuscular Hemoglobin Concent 30.5 G/DL (32.0-36.0) L Red Cell Distribution Width 17.6 % (11.6-14.8) H Platelet Count 417 K/UL (150-450) Mean Platelet Volume 5.2 FL (6.5-10.1) L Neutrophils (%) (Auto) % (45.0-75.0) Lymphocytes (%) (Auto) % (20.0-45.0) Monocytes (%) (Auto) % (1.0-10.0) Eosinophils (%) (Auto) % (0.0-3.0) Basophils (%) (Auto) % (0.0-2.0) Differential Total Cells Counted 100 Neutrophils % (Manual) 89 % (45-75) H Lymphocytes % (Manual) 8 % (20-45) L Monocytes % (Manual) 2 % (1-10) Eosinophils % (Manual) 1 % (0-3) Basophils % (Manual) 0 % (0-2) Band Neutrophils 0 % (0-8) Platelet Estimate Adequate Platelet Morphology Normal Hypochromasia 1+ Anisocytosis 1+ Erythrocyte Sedimentation Rate 105 MM/HR (0-30) H Sodium Level 156 MMOL/L (136-145) H Potassium Level 2.6 MMOL/L (3.5-5.1) *L Chloride Level 120 MMOL/L (98-107) H Carbon Dioxide Level 25 MMOL/L (21-32) Anion Gap 12 mmol/L (5-15) Blood Urea Nitrogen 18 mg/dL (7-18) Creatinine 0.4 MG/DL (0.55-1.30) L Estimat Glomerular Filtration Rate > 60 mL/min (>60) Glucose Level 292 MG/DL (74-106) H Hemoglobin A1c 7.3 % (4.3-6.0) H Calcium Level 11.2 MG/DL (8.5-10.1) H Phosphorus Level 1.6 MG/DL (2.5-4.9) L Magnesium Level 2.0 MG/DL (1.8-2.4) Total Bilirubin 0.2 MG/DL (0.2-1.0) Aspartate Amino Transf (AST/SGOT) 40 U/L (15-37) H Alanine Aminotransferase (ALT/SGPT) 76 U/L (12-78) Alkaline Phosphatase 142 U/L (46-116) H Troponin I 0.000 ng/mL (0.000-0.056) C-Reactive Protein, Quantitative 19.2 mg/dL (0.00-0.90) H Total Protein 6.6 G/DL (6.4-8.2) Albumin 1.7 G/DL (3.4-5.0) L Globulin 4.9 g/dL Albumin/Globulin Ratio 0.3 (1.0-2.7) L Plan Problems: (1) Septic shock Assessment & Plan: fever, leukocytosis, tachycardia ill appearing in ICU currently on IV Abx as per ID ongoing work up will follow with recs trends labs (2) Multiple organ failure (3) MDRO (multiple drug resistant organisms) resistance (4) Severe anemia (5) Feeding by G-tube (6) Chronic respiratory failure (7) Hypercalcemia (8) Urinary tract infection (9) Chronic anoxic encephalopathy (10) Decubitus skin ulcer Assessment & Plan: Pt presented on admission with multiple pressure injuries: L earlobe grossly malodorous and necrotic with partial loss of earlobe.Ear canal and posterior to earlobe noted to be purple/red.(L)6cm x (W)1.5cm.Smal amt brown exudate noted. Dry eschar noted to R earlobe (L)1cm. Full thickness Sacral pressure with undermining.100% soft necrosis noted to base of wound and undermined borders. Additional soft necrosis noted to edges and periwound. Wound is malodorous. Small amt black exudate noted.(L)(L)7.5cm x (W)9.7cm. Unstageable pressure injury L heel .Base of wound fluctuant and purple in centre with surrounding dry eschar (L)3.4cm x (W)3.2cm.Non-blanchable erythema periwound. R heel dry and blanchable. Skin Assessed under collar of trach and no areas of concerns noted. Tx.Plan: Cleanse L earlobe with Dakin's 0.25% nataly. Apply Dakin's 0.25% moist [id number] and cover with Optifoam drsg Twice Daily and PRN. Cleanse Sacral area with Dakin's 0.25% Nataly.Loosely pack wound with Dakin's moist Kerlix. Apply Triad Periwound. Cover with Optifoam drsg. Twice Daily and prn. Apply Betadine to L heel. Cover with Optifoam drsg. Change every 3 days and prn. Reposition at least every 2hours or as tolerated. Off-load heels with pillow. (11) History of sudden cardiac arrest (12) Sepsis (13) ATN (acute tubular necrosis) (14) Acute and chronic respiratory failure Levon Nunes May 21, 2019 17:04
--- NOTE | 2019-05-21 17:14 | NUR ---
CASE MANAGEMENT: REVIEW 05/21/2019 SI:RESPIRATORY FAILURE T 98.9 HR 72 RR 18 B/P 97/62 SATS 100% ON MECH VENT FIO2 60 WBC 17.6 NA 156 K 2.6 CL 120 CR 0.4 GLU 292 CA 11.2 PHOS 1.6 AST 40 ALP 142 IS:IVF @ 100 ml/HR ZOSYN IV Q8H VANCO IV Q12H DOPAMINE IV PER PARAMETERS ICU
--- NOTE | 2019-05-21 17:48 | NUR ---
NURSE NOTES: Blood sugar 338, 8 units given per sliding scale. New GTF bottle hung. Turned and repositioned. BP stable, off pressor since 1300. 100/60, MAP 70. Kept dry and clean.
--- NOTE | 2019-05-21 18:00 | NUR ---
NURSE NOTES: Received orders to PICC placement, called public guardian Chadwick Ricci to obtain consent, no answer and left a voicemail message, called alternative number of duty worker but phone number is incorrect. (Difficult to hear duty worker's number). Notified Dr. Corrigan of consistently high blood sugar, physician consult to Dr. Urrutia. Notified Dr. Urrutia of patient's current status and received orders to change accucheck to q4h and Levemir 20units q12 hours, start 1800 today. Read back given and verified.
[2019-05-21] MEDS ORDERED: Lidocaine 1% Plain 30 ml INJ PRN (18:02)
[2019-05-21] MEDS ORDERED: Heparin1,000 units/500ml Premix(Conc:2 units/ml) IV PRN (18:02)
--- NOTE | 2019-05-21 18:30 | NUR ---
NURSE NOTES: Levemir pen not ready yet per pharmacy.
--- NOTE | 2019-05-21 19:33 | Cardiology Report ---
APPROVED REPORT EKG Measurement Heart [id number] Sinus tachycardia Nonspecific T wave abnormality Abnormal ECG
--- NOTE | 2019-05-21 19:40 | NUR ---
RESPIRATORY NOTE: Received pt. on 840 vent. Vent settings are: A/C rate of 16, Vt 600, FI02 40%, PEEP +5. No respiratory distress noted, pt. sP02 @ 100%. Ambu bag @ BS. Vent plugged on red outlet. Will continue to monitor pt.
--- NOTE | 2019-05-21 19:41 | NUR ---
HAND-OFF: Report given to DB Lee using SBAR.
--- NOTE | 2019-05-21 19:45 | NUR ---
NURSE NOTES: PATIENT OPEN EYES, LETHARGIC STATUS, ON TRACH TO VENT, AC16/TV600/FIO2 60%/PEEP 5, O2 SATURATION 100% NOTED AT THIS TIME, ABDOMEN SOFT, NO BOWEL MOVEMENT STATUS, G TUBE INTACT AND PATENT, ONGOING VITAL AF 1.2 AT 60ML/HR, KEPT HOB OVER 30 DEGREE, F/C INTACT AND PATENT, YELLOW URINE OUTED, TLC TO RIGHT FEMORAL INTACT AND PATENT, ONGOING D5W AT 100ML/HR VIA TLC, ON P200 BED, MADE LOWER BED POSITION, PROVIDED CALL LIGHT WITHIN REACH, ON BED ALARM, WILL CONTINUE TO MONITOR.
[2019-05-21] MEDS: Dyna-Hex 2% Top Sol 2oz TOPIC SCH (19:47)
[2019-05-21] MEDS ORDERED: Levemir Flexpen SUBQ SCH (21:00)
[2019-05-21] MEDS: DOPamine 400mg/250ml 250 ML IV SCH (21:15)
--- NOTE | 2019-05-21 21:50 | NUR ---
NURSE NOTES: Oral care was done, repositioned.
--- NOTE | 2019-05-21 23:45 | NUR ---
NURSE NOTES: PATIENT SLEEPING ON AND OFF, NO PAIN OR DISTRESS NOTED AT THIS TIME.
[2019-05-22] VITALS (24 sets, daily range): BP systolic 95–111; BP diastolic 52–69
[2019-05-22] MEDS: NovoLOG Insulin Flexpen SUBQ SCH ×6 (00:31→20:56)
[2019-05-22] MEDS: Vancomycin 1gm/D5W 275ml IVPB SCH ×4 (01:45→14:04)
--- NOTE | 2019-05-22 01:50 | NUR ---
NURSE NOTES: ORAL CARE WAS DONE, NO PAIN OR DISTRESS NOTED AT THIS TIME.
--- NOTE | 2019-05-22 04:00 | NUR ---
NURSE NOTES: MORNING CARE WAS DONE, DARK GREENISH SMALL BOWEL MOVEMENT NOTED.
[2019-05-22] MEDS: Piperacillin/Tazobactam 3.375 GM in NS 110 ML IVPB SCH ×3 (05:37→21:31)
--- NOTE | 2019-05-22 06:00 | NUR ---
NURSE NOTES: NO ACUTE DISTRESS NOTED AT THIS SHIFT.
[2019-05-22 06:27] LABS: HEMATOCRIT 28.1 % (37.0-47.0); HEMOGLOBIN 8.6 G/DL (12.0-16.0); MEAN CORPUSCULAR VOLUME 85 FL (80-99); PLATELET COUNT 359 K/UL (150-450); RED BLOOD COUNT 3.33 M/UL (4.20-5.40); RED CELL DISTRIBUTION WIDTH 17.3 % (11.6-14.8)
--- NOTE | 2019-05-22 06:40 | NUR ---
NURSE NOTES: SEEN THE PATIENT BY DR. VUONG.
--- NOTE | 2019-05-22 06:50 | General Progress Note ---
Assessment/Plan Problem List: (1) Diabetes mellitus out of control ICD Codes: E11.65 - Type 2 diabetes mellitus with hyperglycemia SNOMED: 21761187, 210670238 (2) Sepsis ICD Codes: A41.9 - Sepsis, unspecified organism SNOMED: 98686204 (3) Urinary tract infection ICD Codes: N39.0 - Urinary tract infection, site not specified SNOMED: 12079901 (4) Chronic respiratory failure ICD Codes: J96.10 - Chronic respiratory failure, unspecified whether with hypoxia or hypercapnia SNOMED: 60643548 Assessment/Plan: increase Levemir to 24 units bid continue NISS every 4 hours resistant scale Subjective ROS Limited/Unobtainable: Yes Allergies: Coded Allergies: DIPHENHYDRAMINE (Verified Allergy, Unknown, 02/24/19) FLUPHENAZINE (Verified Allergy, Unknown, 02/24/19) Subjective remained intubated in ICU missed evening dose of Levemir - started this morning Item Value Date Time Bedside Blood Glucose 377 mg/dl H 05/22/19 0522 Bedside Blood Glucose 336 mg/dl H 05/22/19 0031 Bedside Blood Glucose 360 mg/dl H 05/21/19 2045 Bedside Blood Glucose 369 mg/dl H 05/21/19 1213 Bedside Blood Glucose Critically High Result 05/21/19 1800 Objective Last 24 Hour Vital Signs Date Time Temp Pulse Resp B/P (MAP) Pulse Ox O2 Delivery O2 Flow Rate FiO2 05/22/19 06:00 73 16 107/69 (82) 100 05/22/19 05:00 77 16 98/64 (75) 100 05/22/19 04:31 73 16 40 05/22/19 04:00 97.8 74 16 102/58 (73) 99 05/22/19 04:00 40 05/22/19 04:00 Mechanical Ventilator 05/22/19 03:30 74 16 40 05/22/19 03:03 72 05/22/19 03:00 72 16 99/58 (72) 99 05/22/19 02:00 74 16 103/57 (72) 100 05/22/19 01:14 77 16 40 05/22/19 01:00 74 16 96/61 (73) 100 05/22/19 00:00 98.2 72 18 99/56 (70) 100 05/22/19 00:00 40 05/22/19 00:00 Mechanical Ventilator 05/21/19 23:00 77 16 98/56 (70) 100 05/21/19 22:49 82 16 40 05/21/19 22:00 70 17 91/58 (69) 100 05/21/19 21:15 101/62 05/21/19 21:01 74 16 40 05/21/19 21:00 74 16 100/59 (73) 99 05/21/19 20:33 75 05/21/19 20:00 Mechanical Ventilator 05/21/19 20:00 40 05/21/19 20:00 98.0 75 16 102/60 (74) 99 05/21/19 19:38 75 16 40 05/21/19 19:00 78 16 97/58 (71) 100 05/21/19 18:30 78 18 99/56 (70) 100 05/21/19 18:00 73 16 106/58 (74) 100 05/21/19 17:30 72 16 101/63 (76) 100 05/21/19 17:00 72 16 100/63 (75) 100 05/21/19 16:46 69 16 40 05/21/19 16:30 97.9 72 16 119/63 (81) 100 05/21/19 16:00 60 05/21/19 16:00 74 05/21/19 16:00 Mechanical Ventilator 05/21/19 16:00 73 16 105/60 (75) 100 05/21/19 15:17 74 16 40 05/21/19 15:00 70 16 106/52 (70) 100 05/21/19 14:45 73 16 106/63 (77) 100 05/21/19 14:30 73 16 104/65 (78) 100 05/21/19 14:15 73 16 104/65 (78) 100 05/21/19 14:00 70 16 107/67 (80) 100 05/21/19 13:45 74 16 105/64 (78) 100 05/21/19 13:30 77 16 102/63 (76) 100 05/21/19 13:20 71 18 40 05/21/19 13:15 75 18 106/52 (70) 100 05/21/19 13:00 71 18 98/63 (75) 100 05/21/19 13:00 106/62 05/21/19 12:30 98.9 72 18 97/62 (74) 100 05/21/19 12:00 72 05/21/19 12:00 Mechanical Ventilator 05/21/19 12:00 98/60 05/21/19 12:00 70 16 106/52 (70) 100 05/21/19 12:00 60 05/21/19 11:30 76 16 111/63 (79) 100 05/21/19 11:04 82 19 40 05/21/19 11:00 79 18 110/61 (77) 100 05/21/19 11:00 110/61 05/21/19 10:30 82 20 109/65 (80) 99 05/21/19 10:00 74 18 111/68 (82) 100 05/21/19 10:00 111/66 05/21/19 09:30 75 18 109/69 (82) 100 05/21/19 09:27 100 05/21/19 09:25 76 19 40 05/21/19 09:00 76 18 121/65 (83) 100 05/21/19 09:00 121/65 05/21/19 08:30 75 18 105/62 (76) 100 05/21/19 08:00 74 05/21/19 08:00 100/67 05/21/19 08:00 60 05/21/19 08:00 Mechanical Ventilator 05/21/19 08:00 75 18 100/67 (78) 100 05/21/19 07:54 79 20 50 70 05/21/19 07:30 78 19 105/62 (76) 100 05/21/19 07:00 98.0 74 18 116/59 (78) 100 05/21/19 07:00 108/62 Intake and Output 05/21/19 05/22/19 19:00 07:00 Intake Total 2296.130 ml 2345.0 ml Output Total 810 ml 755 ml Balance 1486.130 ml 1590.0 ml Intake Free Water 160 ml 100 ml IV Total 1506.130 ml 1585.0 ml Tube Feeding 630 ml 660 ml Output Urine Total 810 ml 755 ml # Bowel Movements 2 Laboratory Tests 05/22/19 05:15: White Blood Count 18.0H, Red Blood Count 3.33L, Hemoglobin 8.6L, Hematocrit 28.1L, Mean Corpuscular Volume 85, Mean Corpuscular Hemoglobin 25.8L, Mean Corpuscular Hemoglobin Concent 30.5L, Red Cell Distribution Width 17.3H, Platelet Count 359, Mean Platelet Volume 5.6L, Neutrophils (%) (Auto) , Lymphocytes (%) (Auto) , Monocytes (%) (Auto) , Eosinophils (%) (Auto) , Basophils (%) (Auto) , Neutrophils % (Manual) [Pending], Lymphocytes % (Manual) [Pending], Platelet Estimate [Pending], Platelet Morphology [Pending], Sodium Level [Pending], Potassium Level [Pending], Chloride Level [Pending], Carbon Dioxide Level [Pending], Blood Urea Nitrogen [Pending], Creatinine [Pending], Estimat Glomerular Filtration Rate [Pending], Glucose Level [Pending], Uric Acid [Pending], Calcium Level [Pending], Phosphorus Level [Pending], Magnesium Level [Pending], Total Bilirubin [Pending], Gamma Glutamyl Transpeptidase [ Pending], Aspartate Amino Transf (AST/SGOT) [Pending], Alanine Aminotransferase (ALT/SGPT) [Pending], Alkaline Phosphatase [Pending], Troponin I [Pending], C- Reactive Protein, Quantitative [Pending], Pro-B-Type Natriuretic Peptide [ Pending], Total Protein [Pending], Albumin [Pending], Globulin [Pending], Triglycerides Level [Pending], Cholesterol Level [Pending], LDL Cholesterol [ Pending], HDL Cholesterol [Pending], Cholesterol/HDL Ratio [Pending], Thyroid Stimulating Hormone (TSH) [Pending] Height (Feet): 5 Height (Inches): 3.00 Weight (Pounds): 149 General Appearance: other - intubated EENT: other - ETT Neck: normal alignment Cardiovascular: tachycardia Respiratory/Chest: decreased breath sounds Abdomen: normal bowel sounds Edema: 1+ Arm (L), 1+ Arm (R), 1+ Leg (L), 1+ Leg (R), 1+ Pedal (L), 1+ Pedal ( R), 1+ Generalized Objective Current Medications Medications (Trade) Dose Ordered Sig/Lavon Route PRN Reason Start Time Stop Time Status Last Admin Dose Admin Acetaminophen (Tylenol) 650 mg Q4H PRN ORAL FEVER (temp> 100.5F) 05/19/19 15:30 06/18/19 15:29 Albuterol/ Ipratropium (Albuterol/ Ipratropium) 3 ml Q4H PRN HHN Shortness of Breath 05/19/19 15:30 05/24/19 15:29 Chlorhexidine Gluconate (Nkechi-Hex 2%) 1 applic DAILY@2000 TOPIC 05/21/19 20:00 06/20/19 19:59 05/21/19 19:47 Dextrose 1,000 ml @ 100 mls/hr Q10H IV 05/21/19 11:30 06/20/19 11:29 05/21/19 21:39 Dextrose (Dextrose 50%) 25 ml Q30M PRN IV Hypoglycemia 05/20/19 11:45 06/19/19 11:44 Dextrose (Dextrose 50%) 50 ml Q30M PRN IV Hypoglycemia 05/20/19 11:45 06/19/19 11:44 Dopamine HCl/ Dextrose 250 ml @ 0 mls/hr Q24H IV 05/19/19 21:15 06/18/19 21:14 05/20/19 18:18 Heparin Sodium (Porcine) (Heparin 5000 units/ml) 5,000 units EVERY 12 HOURS SUBQ 05/19/19 21:00 06/18/19 20:59 05/21/19 20:45 Insulin Aspart (NovoLOG) Q4HR SUBQ 05/21/19 21:00 06/20/19 20:59 05/22/19 05:21 Insulin Detemir (Levemir) 20 units Q12HR SUBQ 05/21/19 21:00 06/20/19 20:59 05/22/19 05:22 Lorazepam (Ativan 2mg/ml 1ml) 2 mg Q2H PRN IV For Anxiety 05/19/19 15:30 05/26/19 15:29 Morphine Sulfate (Morphine Sulfate) 4 mg Q4H PRN IVP Severe Pain (Pain Scale 7-10) 05/19/19 15:30 05/26/19 15:29 Piperacillin Sod/ Tazobactam Sod 3.375 gm/Sodium Chloride 110 ml @ 27.5 mls/hr EVERY 8 HOURS IVPB 05/20/19 14:00 05/25/19 13:59 05/22/19 05:37 Sodium Hypochlorite (Dakin's Quarter Strength) 1 applic DAILY TOPIC 05/21/19 18:00 06/20/19 17:59 Vancomycin HCl (Vanco rx to dose) 1 ea DAILY PRN MISC Per rx protocol 05/19/19 17:30 06/18/19 17:29 Vancomycin HCl 1 gm/Dextrose 275 ml @ 183.708 mls/hr Q12H IVPB 05/21/19 02:00 05/26/19 01:59 05/22/19 01:45 Vj Urrutia MD May 22, 2019 06:50
[2019-05-22 06:52] LABS: PHOSPHORUS 1.9 MG/DL (2.5-4.9)
--- NOTE | 2019-05-22 07:15 | NUR ---
HAND-OFF: Report given to LEIGH JOYA RN.
[2019-05-22 07:22] LABS: ALANINE AMINOTRANSFERASE 82 U/L (12-78); ALBUMIN 1.5 G/DL (3.4-5.0); ALBUMIN/GLOBULIN RATIO 0.3 (1.0-2.7); ALKALINE PHOSPHATASE 148 U/L (46-116); ANION GAP 11 mmol/L (5-15); ASPARTATE AMINO TRANSFERASE 42 U/L (15-37); BILIRUBIN,TOTAL 0.2 MG/DL (0.2-1.0); BLOOD UREA NITROGEN 13 mg/dL (7-18); CALCIUM 10.1 MG/DL (8.5-10.1); CARBON DIOXIDE 25 MMOL/L (21-32); CHLORIDE 113 MMOL/L (98-107); CHOLESTEROL 126 MG/DL (< 200); CREATININE 0.3 MG/DL (0.55-1.30); HDL CHOLESTEROL 33 MG/DL (40-60); POTASSIUM 3.2 MMOL/L (3.5-5.1); SODIUM 149 MMOL/L (136-145); TRIGLYCERIDES 59 MG/DL (30-150)
--- NOTE | 2019-05-22 07:26 | NUR ---
NURSE NOTES: Report received from DB Lee. Observed patient in bed sleeping. Obtunded and open eyes by touching. On ventilator with setting of AC 16, TV 600, FiO2 40%, and PEEP 5 and tolerated well. TCL noted on right femoral with IVF running at prescribed rate. GT site intact with ongoing feeding. HOB elevated. No residual noted. F/C intact and draining well. Bed in lowest position. Call light within reach. Will continue to monitor.
[2019-05-22] MEDS: Levemir Flexpen SUBQ SCH ×2 (08:38→20:56)
[2019-05-22] MEDS: Heparin 5000 units/ml inj SUBQ SCH ×2 (08:39→20:57)
[2019-05-22] MEDS: Dakin's 0.125% Soln (Quarter Strength) 16oz TOPIC SCH (08:42)
--- NOTE | 2019-05-22 09:19 | Infectious Diseases Prog Note ---
Assessment/Plan Assessment/Plan 69 yo female with PMHx of HTN, HLD chronic respiratory failure s/p PEG and Trach who was sen to the ED from her retirement for SOB. Sepsis UA pos UCx 05/19/19 - Mixed leslee Leukocytosis of 19 Blood Cx 05/19/19 - Proteus x 2 sets Respiratory distress On Vent CXR - Left sided consolidation. No Fever Elevated LFTs Sacral ulcer Need debridement Ear wound healing chronic respiratory failure s/p trach/vent PEG schizoaffective disorder Plan: - Continue Vancomycin #3 and Zosyn #3 -Monitor CBC/CMP, temperatures - f/u Cx B/S/U Thank you for this consult. We will continue to follow the patient during this hospitalization. Subjective Allergies: Coded Allergies: DIPHENHYDRAMINE (Verified Allergy, Unknown, 02/24/19) FLUPHENAZINE (Verified Allergy, Unknown, 02/24/19) Subjective Patient on vent 40% Blood Cx now growing proteus Afebrile WBCs 18 Objective Vital Signs Last 24 Hour Vital Signs Date Time Temp Pulse Resp B/P (MAP) Pulse Ox O2 Delivery O2 Flow Rate FiO2 05/22/19 08:00 40 05/22/19 08:00 Mechanical Ventilator 05/22/19 08:00 98.0 77 17 95/62 (73) 100 05/22/19 07:11 72 18 40 05/22/19 07:00 75 16 100/62 (75) 100 05/22/19 06:00 73 16 107/69 (82) 100 05/22/19 05:00 77 16 98/64 (75) 100 05/22/19 04:31 73 16 40 05/22/19 04:00 97.8 74 16 102/58 (73) 99 05/22/19 04:00 40 05/22/19 04:00 Mechanical Ventilator 05/22/19 03:30 74 16 40 05/22/19 03:03 72 05/22/19 03:00 72 16 99/58 (72) 99 05/22/19 02:00 74 16 103/57 (72) 100 05/22/19 01:14 77 16 40 05/22/19 01:00 74 16 96/61 (73) 100 05/22/19 00:00 98.2 72 18 99/56 (70) 100 05/22/19 00:00 40 05/22/19 00:00 Mechanical Ventilator 05/21/19 23:00 77 16 98/56 (70) 100 05/21/19 22:49 82 16 40 05/21/19 22:00 70 17 91/58 (69) 100 05/21/19 21:15 101/62 05/21/19 21:01 74 16 40 05/21/19 21:00 74 16 100/59 (73) 99 05/21/19 20:33 75 05/21/19 20:00 Mechanical Ventilator 05/21/19 20:00 40 05/21/19 20:00 98.0 75 16 102/60 (74) 99 05/21/19 19:38 75 16 40 05/21/19 19:00 78 16 97/58 (71) 100 05/21/19 18:30 78 18 99/56 (70) 100 05/21/19 18:00 73 16 106/58 (74) 100 05/21/19 17:30 72 16 101/63 (76) 100 05/21/19 17:00 72 16 100/63 (75) 100 05/21/19 16:46 69 16 40 05/21/19 16:30 97.9 72 16 119/63 (81) 100 05/21/19 16:00 60 05/21/19 16:00 74 05/21/19 16:00 Mechanical Ventilator 05/21/19 16:00 73 16 105/60 (75) 100 05/21/19 15:17 74 16 40 05/21/19 15:00 70 16 106/52 (70) 100 05/21/19 14:45 73 16 106/63 (77) 100 05/21/19 14:30 73 16 104/65 (78) 100 05/21/19 14:15 73 16 104/65 (78) 100 05/21/19 14:00 70 16 107/67 (80) 100 05/21/19 13:45 74 16 105/64 (78) 100 05/21/19 13:30 77 16 102/63 (76) 100 05/21/19 13:20 71 18 40 05/21/19 13:15 75 18 106/52 (70) 100 05/21/19 13:00 71 18 98/63 (75) 100 05/21/19 13:00 106/62 05/21/19 12:30 98.9 72 18 97/62 (74) 100 05/21/19 12:00 72 05/21/19 12:00 Mechanical Ventilator 05/21/19 12:00 98/60 05/21/19 12:00 70 16 106/52 (70) 100 05/21/19 12:00 60 05/21/19 11:30 76 16 111/63 (79) 100 05/21/19 11:04 82 19 40 05/21/19 11:00 79 18 110/61 (77) 100 05/21/19 11:00 110/61 05/21/19 10:30 82 20 109/65 (80) 99 05/21/19 10:00 74 18 111/68 (82) 100 05/21/19 10:00 111/66 05/21/19 09:30 75 18 109/69 (82) 100 05/21/19 09:27 100 05/21/19 09:25 76 19 40 Height (Feet): 5 Height (Inches): 3.00 Weight (Pounds): 149 Objective Gen: Not following, Trached on Vent HEENT: NCAT, MMM, PERRL LUNGS: Course B/L CARDS: RRR, S1, S2 ABD: Soft, NT, ND, + BS NEURO: Not verbal, No following SKIN: Warm/dry, No rashes, Sacral decub stage 4 Microbiology Date/Time Source Procedure Growth Status 05/19/19 14:00 Blood Blood Culture - Preliminary Proteus Mirabilis Resulted 05/19/19 13:45 Blood Blood Culture - Preliminary Proteus Mirabilis Resulted 05/19/19 15:46 Nasal Nares MRSA Culture - Final NO METHICILLIN RESISTANT STAPH AUREUS... Complete 05/19/19 15:30 Urine,Clean Catch Urine Culture - Final Mixed Urogenital Contaminants Complete 05/19/19 15:46 Rectum VRE Culture - Final Enterococcus Faecium - Vre Complete 05/19/19 15:46 Rectum - Final NO CARBAPENEM-RESISTANT ENTEROBACTERI... Complete Laboratory Tests Test 05/22/19 05:15 White Blood Count 18.0 K/UL (4.8-10.8) H Red Blood Count 3.33 M/UL (4.20-5.40) L Hemoglobin 8.6 G/DL (12.0-16.0) L Hematocrit 28.1 % (37.0-47.0) L Mean Corpuscular Volume 85 FL (80-99) Mean Corpuscular Hemoglobin 25.8 PG (27.0-31.0) L Mean Corpuscular Hemoglobin Concent 30.5 G/DL (32.0-36.0) L Red Cell Distribution Width 17.3 % (11.6-14.8) H Platelet Count 359 K/UL (150-450) Mean Platelet Volume 5.6 FL (6.5-10.1) L Neutrophils (%) (Auto) % (45.0-75.0) Lymphocytes (%) (Auto) % (20.0-45.0) Monocytes (%) (Auto) % (1.0-10.0) Eosinophils (%) (Auto) % (0.0-3.0) Basophils (%) (Auto) % (0.0-2.0) Neutrophils % (Manual) Pending Lymphocytes % (Manual) Pending Platelet Estimate Pending Platelet Morphology Pending Sodium Level 149 MMOL/L (136-145) H Potassium Level 3.2 MMOL/L (3.5-5.1) L Chloride Level 113 MMOL/L (98-107) H Carbon Dioxide Level 25 MMOL/L (21-32) Anion Gap 11 mmol/L (5-15) Blood Urea Nitrogen 13 mg/dL (7-18) Creatinine 0.3 MG/DL (0.55-1.30) L Estimat Glomerular Filtration Rate > 60 mL/min (>60) Glucose Level 377 MG/DL (74-106) H Uric Acid 3.9 MG/DL (2.6-7.2) Calcium Level 10.1 MG/DL (8.5-10.1) Phosphorus Level 1.9 MG/DL (2.5-4.9) L Magnesium Level 1.9 MG/DL (1.8-2.4) Total Bilirubin 0.2 MG/DL (0.2-1.0) Gamma Glutamyl Transpeptidase 114 U/L (5-85) H Aspartate Amino Transf (AST/SGOT) 42 U/L (15-37) H Alanine Aminotransferase (ALT/SGPT) 82 U/L (12-78) H Alkaline Phosphatase 148 U/L (46-116) H Troponin I 0.000 ng/mL (0.000-0.056) C-Reactive Protein, Quantitative 10.7 mg/dL (0.00-0.90) H Pro-B-Type Natriuretic Peptide 178 pg/mL (0-125) H Total Protein 6.1 G/DL (6.4-8.2) L Albumin 1.5 G/DL (3.4-5.0) L Globulin 4.6 g/dL Albumin/Globulin Ratio 0.3 (1.0-2.7) L Triglycerides Level 59 MG/DL (30-150) Cholesterol Level 126 MG/DL (< 200) LDL Cholesterol 72 mg/dL (<100) HDL Cholesterol 33 MG/DL (40-60) L Cholesterol/HDL Ratio 3.8 (3.3-4.4) Thyroid Stimulating Hormone (TSH) 1.289 uiU/mL (0.358-3.740) Current Medications Medications (Trade) Dose Ordered Sig/Lavon Route PRN Reason Start Time Stop Time Status Last Admin Dose Admin Acetaminophen (Tylenol) 650 mg Q4H PRN ORAL FEVER (temp> 100.5F) 05/19/19 15:30 06/18/19 15:29 Albuterol/ Ipratropium (Albuterol/ Ipratropium) 3 ml Q4H PRN HHN Shortness of Breath 05/19/19 15:30 05/24/19 15:29 Chlorhexidine Gluconate (Nkechi-Hex 2%) 1 applic DAILY@2000 TOPIC 05/21/19 20:00 06/20/19 19:59 05/21/19 19:47 Dextrose 1,000 ml @ 100 mls/hr Q10H IV 05/21/19 11:30 06/20/19 11:29 05/22/19 09:08 Dextrose (Dextrose 50%) 25 ml Q30M PRN IV Hypoglycemia 05/20/19 11:45 06/19/19 11:44 Dextrose (Dextrose 50%) 50 ml Q30M PRN IV Hypoglycemia 05/20/19 11:45 06/19/19 11:44 Dopamine HCl/ Dextrose 250 ml @ 0 mls/hr Q24H IV 05/19/19 21:15 06/18/19 21:14 05/20/19 18:18 Heparin Sodium (Porcine) (Heparin 5000 units/ml) 5,000 units EVERY 12 HOURS SUBQ 05/19/19 21:00 06/18/19 20:59 05/22/19 08:39 Insulin Aspart (NovoLOG) Q4HR SUBQ 05/21/19 21:00 06/20/19 20:59 05/22/19 08:39 Insulin Detemir (Levemir) 24 units Q12HR SUBQ 05/22/19 09:00 06/20/19 20:59 05/22/19 08:38 Lorazepam (Ativan 2mg/ml 1ml) 2 mg Q2H PRN IV For Anxiety 05/19/19 15:30 05/26/19 15:29 Morphine Sulfate (Morphine Sulfate) 4 mg Q4H PRN IVP Severe Pain (Pain Scale 7-10) 05/19/19 15:30 05/26/19 15:29 Piperacillin Sod/ Tazobactam Sod 3.375 gm/Sodium Chloride 110 ml @ 27.5 mls/hr EVERY 8 HOURS IVPB 05/20/19 14:00 05/25/19 13:59 05/22/19 05:37 Sodium Hypochlorite (Dakin's Quarter Strength) 1 applic DAILY TOPIC 05/21/19 18:00 06/20/19 17:59 05/22/19 08:42 Vancomycin HCl (Vanco rx to dose) 1 ea DAILY PRN MISC Per rx protocol 05/19/19 17:30 06/18/19 17:29 Vancomycin HCl 1 gm/Dextrose 275 ml @ 183.708 mls/hr Q12H IVPB 05/21/19 02:00 05/26/19 01:59 05/22/19 01:45 Chadwick Keith MD May 22, 2019 09:19
--- NOTE | 2019-05-22 09:56 | Diagnostic Imaging Report ---
EXAM: XR Chest, 1 View CLINICAL HISTORY: DYSPNEA TECHNIQUE: Frontal view of the chest. COMPARISON: Chest x-ray dated 05/19/19 FINDINGS: Lungs: Persistent patchy left perihilar and retrocardiac opacities and left lung volume loss, not significantly changed. Pleural space: Unremarkable. The costophrenic angles are sharp. No visible pneumothorax. Heart: See above. Mediastinum: Unremarkable. Bones/joints: Unremarkable. Tubes, lines and devices: Telemetry leads overlie the thorax. Tracheostomy tube in place with expected positioning. IMPRESSION: Persistent patchy left perihilar and retrocardiac opacities and left lung volume loss, not significantly changed.
--- NOTE | 2019-05-22 10:00 | NUR ---
NURSE NOTES: Turn and repositioning the patient. Oral care provided. Will continue to monitor.
--- NOTE | 2019-05-22 10:29 | NUR ---
NURSE NOTES: Informed Dr. Lizarraga regarding elevated blood glucose with pt. is getting D5W at 100cc/hr. Dr. Lizarraga said it is okay to run D5W at 100cc/hr due to elevated sodium.
--- NOTE | 2019-05-22 11:02 | Nephrology Progress Note ---
Assessment/Plan Problem List: (1) Hypercalcemia (2) Chronic anoxic encephalopathy (3) Acute and chronic respiratory failure (4) Severe anemia Assessment Electrolyte imbalance: High Na and Low K Severe Hypercalcemia Severe HypoAlbuminemia DM Others: Acute and chronic respiratory failure Septic shock Multiple organ failure Feeding by G-tube Chronic anoxic encephalopathy Decubitus skin ulcer History of sudden cardiac arrest ATN (acute tubular necrosis) and Oliguria Plan Plan; Aredia 90 mg 05/21 D5W 75 cc / h K Phos IV monitor Lytes and Ca and Phos per orders discussed with RN Subjective ROS Limited/Unobtainable: Yes Objective Objective Last 24 Hour Vital Signs Date Time Temp Pulse Resp B/P (MAP) Pulse Ox O2 Delivery O2 Flow Rate FiO2 05/22/19 10:00 78 19 96/64 (75) 100 05/22/19 09:17 77 19 40 05/22/19 09:00 75 19 111/65 (80) 100 05/22/19 08:00 76 05/22/19 08:00 40 05/22/19 08:00 Mechanical Ventilator 05/22/19 08:00 98.0 77 17 95/62 (73) 100 05/22/19 07:11 72 18 40 05/22/19 07:00 75 16 100/62 (75) 100 05/22/19 06:00 73 16 107/69 (82) 100 05/22/19 05:00 77 16 98/64 (75) 100 05/22/19 04:31 73 16 40 05/22/19 04:00 97.8 74 16 102/58 (73) 99 05/22/19 04:00 40 05/22/19 04:00 Mechanical Ventilator 05/22/19 03:30 74 16 40 05/22/19 03:03 72 05/22/19 03:00 72 16 99/58 (72) 99 05/22/19 02:00 74 16 103/57 (72) 100 05/22/19 01:14 77 16 40 05/22/19 01:00 74 16 96/61 (73) 100 05/22/19 00:00 98.2 72 18 99/56 (70) 100 05/22/19 00:00 40 05/22/19 00:00 Mechanical Ventilator 05/21/19 23:00 77 16 98/56 (70) 100 05/21/19 22:49 82 16 40 05/21/19 22:00 70 17 91/58 (69) 100 05/21/19 21:15 101/62 05/21/19 21:01 74 16 40 05/21/19 21:00 74 16 100/59 (73) 99 05/21/19 20:33 75 05/21/19 20:00 Mechanical Ventilator 05/21/19 20:00 40 05/21/19 20:00 98.0 75 16 102/60 (74) 99 05/21/19 19:38 75 16 40 05/21/19 19:00 78 16 97/58 (71) 100 05/21/19 18:30 78 18 99/56 (70) 100 05/21/19 18:00 73 16 106/58 (74) 100 05/21/19 17:30 72 16 101/63 (76) 100 05/21/19 17:00 72 16 100/63 (75) 100 05/21/19 16:46 69 16 40 05/21/19 16:30 97.9 72 16 119/63 (81) 100 05/21/19 16:00 60 05/21/19 16:00 74 05/21/19 16:00 Mechanical Ventilator 05/21/19 16:00 73 16 105/60 (75) 100 05/21/19 15:17 74 16 40 05/21/19 15:00 70 16 106/52 (70) 100 05/21/19 14:45 73 16 106/63 (77) 100 05/21/19 14:30 73 16 104/65 (78) 100 05/21/19 14:15 73 16 104/65 (78) 100 05/21/19 14:00 70 16 107/67 (80) 100 05/21/19 13:45 74 16 105/64 (78) 100 05/21/19 13:30 77 16 102/63 (76) 100 05/21/19 13:20 71 18 40 05/21/19 13:15 75 18 106/52 (70) 100 05/21/19 13:00 71 18 98/63 (75) 100 05/21/19 13:00 106/62 05/21/19 12:30 98.9 72 18 97/62 (74) 100 05/21/19 12:00 72 05/21/19 12:00 Mechanical Ventilator 05/21/19 12:00 98/60 05/21/19 12:00 70 16 106/52 (70) 100 05/21/19 12:00 60 05/21/19 11:30 76 16 111/63 (79) 100 05/21/19 11:04 82 19 40 05/21/19 11:00 79 18 110/61 (77) 100 05/21/19 11:00 110/61 Intake and Output 05/21/19 05/22/19 19:00 07:00 Intake Total 2296.130 ml 2395.0 ml Output Total 810 ml 825 ml Balance 1486.130 ml 1570.0 ml Intake Free Water 160 ml 100 ml IV Total 1506.130 ml 1575.0 ml Tube Feeding 630 ml 720 ml Output Urine Total 810 ml 825 ml # Bowel Movements 2 Laboratory Tests 05/22/19 05:15: White Blood Count 18.0H, Red Blood Count 3.33L, Hemoglobin 8.6L, Hematocrit 28.1L, Mean Corpuscular Volume 85, Mean Corpuscular Hemoglobin 25.8L, Mean Corpuscular Hemoglobin Concent 30.5L, Red Cell Distribution Width 17.3H, Platelet Count 359, Mean Platelet Volume 5.6L, Neutrophils (%) (Auto) , Lymphocytes (%) (Auto) , Monocytes (%) (Auto) , Eosinophils (%) (Auto) , Basophils (%) (Auto) , Differential Total Cells Counted 100, Neutrophils % ( Manual) 87H, Lymphocytes % (Manual) 6L, Monocytes % (Manual) 1, Eosinophils % ( Manual) 2, Basophils % (Manual) 0, Band Neutrophils 4, Platelet Estimate Adequate, Platelet Morphology Normal, Sodium Level 149H, Potassium Level 3.2L, Chloride Level 113H, Carbon Dioxide Level 25, Anion Gap 11, Blood Urea Nitrogen 13, Creatinine 0.3L, Estimat Glomerular Filtration Rate > 60, Glucose Level 377H , Uric Acid 3.9, Calcium Level 10.1, Phosphorus Level 1.9L, Magnesium Level 1.9 , Total Bilirubin 0.2, Gamma Glutamyl Transpeptidase 114H, Aspartate Amino Transf (AST/SGOT) 42H, Alanine Aminotransferase (ALT/SGPT) 82H, Alkaline Phosphatase 148H, Troponin I 0.000, C-Reactive Protein, Quantitative 10.7H, Pro- B-Type Natriuretic Peptide 178H, Total Protein 6.1L, Albumin 1.5L, Globulin 4.6 , Albumin/Globulin Ratio 0.3L, Triglycerides Level 59, Cholesterol Level 126, LDL Cholesterol 72, HDL Cholesterol 33L, Cholesterol/HDL Ratio 3.8, Thyroid Stimulating Hormone (TSH) 1.289 Height (Feet): 5 Height (Inches): 3.00 Weight (Pounds): 149 General Appearance: no apparent distress EENT: other - trach Respiratory/Chest: decreased breath sounds Abdomen: distended Palomo Lizarraga MD May 22, 2019 11:02
--- NOTE | 2019-05-22 11:15 | Cardiology Report ---
APPROVED REPORT EXAM: Two-dimensional and M-mode echocardiogram with Doppler and color Doppler. INDICATION S.O.B M-Mode DIMENSIONS IVSd1.3 (0.7-1.1cm)Left Atrium (MM)2.8 (1.6-4.0cm) LVDd4.2 (3.5-5.6cm)Aortic Root2.9 (2.0-3.7cm) PWd1.2 (0.7-1.1cm)Aortic Cusp Exc.1.9 (1.5-2.0cm) IVSs1.6 cm LVDs2.9 (2.5-4.0cm) PWs1.5 cm Normal left ventricular chamber size, systolic function and wall . Left ventricular ejection fraction estimated to be 60-65%. No evidence of left ventricular hypertrophy. No evidence of pericardial effusion . All other cardiac chamber sizes are within normal limits. Aortic valve calcification with normal cusp excursion . Mildly thickened mitral valve leaflets with normal excursion. Mild mitral annulus and aortic root calcification. Pulmonic valve not well visualized. IVC at normal size without physiologic collapse. A color flow and spectral Doppler study was performed and revealed: No aortic insufficiency . Mitral diastolic velocities suggest reduced left ventricular relaxation c/w mild LV diastolic dysfunction (Grade I ) Trace mitral regurgitation. Trace tricuspid regurgitation. Tricuspid systolic velocities suggests peak right ventricular systolic pressure of 21mmHg,.
[2019-05-22] MEDS ORDERED: Potassium Phosphate 30 MM in NS 275 ML IV ONE (12:00)
--- NOTE | 2019-05-22 12:00 | NUR ---
NURSE NOTES: Patient is tolerated well with ventilator. Turn and repositioning done. Oral care provided. Will continue to monitor.
[2019-05-22] MEDS ORDERED: NS 275ml ONE (13:11)
--- NOTE | 2019-05-22 13:22 | Pulmonolgy Critical Care Note ---
Critical Care - Asmt/Plan Problems: (1) Acute and chronic respiratory failure (2) Septic shock (3) Multiple organ failure (4) Feeding by G-tube (5) Chronic anoxic encephalopathy (6) Decubitus skin ulcer (7) History of sudden cardiac arrest (8) Sepsis (9) ATN (acute tubular necrosis) Respiratory: monitor respiratory rate Cardiac: continue to monitor HR/BP Renal: F/U I&O Infectious Disease: check cultures, continue antibiotics Gastrointestinal: hold feedings Endocrine: check TSH, check HgA1C Neurologic: PRN Morphine Notes Reviewed: fur sewer, renal Discussed with: consultants, community case managerfuneral home manager - Objective Last 24 Hour Vital Signs Date Time Temp Pulse Resp B/P (MAP) Pulse Ox O2 Delivery O2 Flow Rate FiO2 05/22/19 12:00 98.9 83 18 105/60 (75) 100 05/22/19 12:00 84 05/22/19 12:00 Mechanical Ventilator 05/22/19 12:00 40 05/22/19 11:22 78 17 40 05/22/19 11:00 77 19 97/57 (70) 100 05/22/19 10:00 78 19 96/64 (75) 100 05/22/19 09:17 77 19 40 05/22/19 09:00 75 19 111/65 (80) 100 05/22/19 08:00 76 05/22/19 08:00 40 05/22/19 08:00 Mechanical Ventilator 05/22/19 08:00 98.0 77 17 95/62 (73) 100 05/22/19 07:11 72 18 40 05/22/19 07:00 75 16 100/62 (75) 100 05/22/19 06:00 73 16 107/69 (82) 100 05/22/19 05:00 77 16 98/64 (75) 100 05/22/19 04:31 73 16 40 05/22/19 04:00 97.8 74 16 102/58 (73) 99 05/22/19 04:00 40 05/22/19 04:00 Mechanical Ventilator 05/22/19 03:30 74 16 40 05/22/19 03:03 72 05/22/19 03:00 72 16 99/58 (72) 99 05/22/19 02:00 74 16 103/57 (72) 100 05/22/19 01:14 77 16 40 05/22/19 01:00 74 16 96/61 (73) 100 05/22/19 00:00 98.2 72 18 99/56 (70) 100 05/22/19 00:00 40 05/22/19 00:00 Mechanical Ventilator 05/21/19 23:00 77 16 98/56 (70) 100 05/21/19 22:49 82 16 40 05/21/19 22:00 70 17 91/58 (69) 100 05/21/19 21:15 101/62 05/21/19 21:01 74 16 40 05/21/19 21:00 74 16 100/59 (73) 99 05/21/19 20:33 75 05/21/19 20:00 Mechanical Ventilator 05/21/19 20:00 40 05/21/19 20:00 98.0 75 16 102/60 (74) 99 05/21/19 19:38 75 16 40 05/21/19 19:00 78 16 97/58 (71) 100 05/21/19 18:30 78 18 99/56 (70) 100 05/21/19 18:00 73 16 106/58 (74) 100 05/21/19 17:30 72 16 101/63 (76) 100 05/21/19 17:00 72 16 100/63 (75) 100 05/21/19 16:46 69 16 40 05/21/19 16:30 97.9 72 16 119/63 (81) 100 05/21/19 16:00 60 05/21/19 16:00 74 05/21/19 16:00 Mechanical Ventilator 05/21/19 16:00 73 16 105/60 (75) 100 05/21/19 15:17 74 16 40 05/21/19 15:00 70 16 106/52 (70) 100 05/21/19 14:45 73 16 106/63 (77) 100 05/21/19 14:30 73 16 104/65 (78) 100 05/21/19 14:15 73 16 104/65 (78) 100 05/21/19 14:00 70 16 107/67 (80) 100 05/21/19 13:45 74 16 105/64 (78) 100 05/21/19 13:30 77 16 102/63 (76) 100 Status: obtunded Condition: critical HEENT: atraumatic Heart: HR/BP stable Abdomen: soft, feeding tube Extremities: edema Micro: Microbiology Date/Time Source Procedure Growth Status 05/19/19 14:00 Blood Blood Culture - Preliminary Proteus Mirabilis Resulted 05/19/19 13:45 Blood Blood Culture - Preliminary Proteus Mirabilis Resulted 05/19/19 15:46 Nasal Nares MRSA Culture - Final NO METHICILLIN RESISTANT STAPH AUREUS... Complete 05/19/19 15:30 Urine,Clean Catch Urine Culture - Final Mixed Urogenital Contaminants Complete 05/19/19 15:46 Rectum VRE Culture - Final Enterococcus Faecium - Vre Complete 05/19/19 15:46 Rectum - Final NO CARBAPENEM-RESISTANT ENTEROBACTERI... Complete Accucheck: 345 Critical Care - Subjective ROS Limited/Unobtainable: Yes EKG Rhythm: Sinus Rhythm FI02: 40 Vent Support Breath Rate: 16 Vent Support Mode: AC Vent Tidal Volume: 600 Sputum Amount: Moderate PEEP: 5.0 PIP: 34 Tube Feeding Amount: 60 I&O: Intake and Output 05/21/19 05/22/19 19:00 07:00 Intake Total 2296.130 ml 2395.0 ml Output Total 810 ml 825 ml Balance 1486.130 ml 1570.0 ml Intake Free Water 160 ml 100 ml IV Total 1506.130 ml 1575.0 ml Tube Feeding 630 ml 720 ml Output Urine Total 810 ml 825 ml # Bowel Movements 2 Labs: Laboratory Tests Test 05/22/19 05:15 05/22/19 12:43 White Blood Count 18.0 K/UL (4.8-10.8) H Red Blood Count 3.33 M/UL (4.20-5.40) L Hemoglobin 8.6 G/DL (12.0-16.0) L Hematocrit 28.1 % (37.0-47.0) L Mean Corpuscular Volume 85 FL (80-99) Mean Corpuscular Hemoglobin 25.8 PG (27.0-31.0) L Mean Corpuscular Hemoglobin Concent 30.5 G/DL (32.0-36.0) L Red Cell Distribution Width 17.3 % (11.6-14.8) H Platelet Count 359 K/UL (150-450) Mean Platelet Volume 5.6 FL (6.5-10.1) L Neutrophils (%) (Auto) % (45.0-75.0) Lymphocytes (%) (Auto) % (20.0-45.0) Monocytes (%) (Auto) % (1.0-10.0) Eosinophils (%) (Auto) % (0.0-3.0) Basophils (%) (Auto) % (0.0-2.0) Differential Total Cells Counted 100 Neutrophils % (Manual) 87 % (45-75) H Lymphocytes % (Manual) 6 % (20-45) L Monocytes % (Manual) 1 % (1-10) Eosinophils % (Manual) 2 % (0-3) Basophils % (Manual) 0 % (0-2) Band Neutrophils 4 % (0-8) Platelet Estimate Adequate Platelet Morphology Normal Sodium Level 149 MMOL/L (136-145) H Potassium Level 3.2 MMOL/L (3.5-5.1) L Chloride Level 113 MMOL/L (98-107) H Carbon Dioxide Level 25 MMOL/L (21-32) Anion Gap 11 mmol/L (5-15) Blood Urea Nitrogen 13 mg/dL (7-18) Creatinine 0.3 MG/DL (0.55-1.30) L Estimat Glomerular Filtration Rate > 60 mL/min (>60) Glucose Level 377 MG/DL (74-106) H Uric Acid 3.9 MG/DL (2.6-7.2) Calcium Level 10.1 MG/DL (8.5-10.1) Phosphorus Level 1.9 MG/DL (2.5-4.9) L Magnesium Level 1.9 MG/DL (1.8-2.4) Total Bilirubin 0.2 MG/DL (0.2-1.0) Gamma Glutamyl Transpeptidase 114 U/L (5-85) H Aspartate Amino Transf (AST/SGOT) 42 U/L (15-37) H Alanine Aminotransferase (ALT/SGPT) 82 U/L (12-78) H Alkaline Phosphatase 148 U/L (46-116) H Troponin I 0.000 ng/mL (0.000-0.056) C-Reactive Protein, Quantitative 10.7 mg/dL (0.00-0.90) H Pro-B-Type Natriuretic Peptide 178 pg/mL (0-125) H Total Protein 6.1 G/DL (6.4-8.2) L Albumin 1.5 G/DL (3.4-5.0) L Globulin 4.6 g/dL Albumin/Globulin Ratio 0.3 (1.0-2.7) L Triglycerides Level 59 MG/DL (30-150) Cholesterol Level 126 MG/DL (< 200) LDL Cholesterol 72 mg/dL (<100) HDL Cholesterol 33 MG/DL (40-60) L Cholesterol/HDL Ratio 3.8 (3.3-4.4) Thyroid Stimulating Hormone (TSH) 1.289 uiU/mL (0.358-3.740) Vancomycin Level Trough Pending Rula Corrigan MD May 22, 2019 13:22
--- NOTE | 2019-05-22 13:51 | Surgery Progress Note ---
Surgery Progress Note Subjective Additional Comments Still ill-appearing in the intensive care unit. Leukocytosis elevated today. Exam stable and unchanged. Overall prognosis guarded. Labs noted. Chest x- ray noted. Objective Last 24 Hour Vital Signs Date Time Temp Pulse Resp B/P (MAP) Pulse Ox O2 Delivery O2 Flow Rate FiO2 05/22/19 13:06 80 18 40 05/22/19 13:00 78 18 107/60 (76) 99 05/22/19 12:00 98.9 83 18 105/60 (75) 100 05/22/19 12:00 84 05/22/19 12:00 Mechanical Ventilator 05/22/19 12:00 40 05/22/19 11:22 78 17 40 05/22/19 11:00 77 19 97/57 (70) 100 05/22/19 10:00 78 19 96/64 (75) 100 05/22/19 09:17 77 19 40 05/22/19 09:00 75 19 111/65 (80) 100 05/22/19 08:00 76 05/22/19 08:00 40 05/22/19 08:00 Mechanical Ventilator 05/22/19 08:00 98.0 77 17 95/62 (73) 100 05/22/19 07:11 72 18 40 05/22/19 07:00 75 16 100/62 (75) 100 05/22/19 06:00 73 16 107/69 (82) 100 05/22/19 05:00 77 16 98/64 (75) 100 05/22/19 04:31 73 16 40 05/22/19 04:00 97.8 74 16 102/58 (73) 99 05/22/19 04:00 40 05/22/19 04:00 Mechanical Ventilator 05/22/19 03:30 74 16 40 05/22/19 03:03 72 05/22/19 03:00 72 16 99/58 (72) 99 05/22/19 02:00 74 16 103/57 (72) 100 05/22/19 01:14 77 16 40 05/22/19 01:00 74 16 96/61 (73) 100 05/22/19 00:00 98.2 72 18 99/56 (70) 100 05/22/19 00:00 40 05/22/19 00:00 Mechanical Ventilator 05/21/19 23:00 77 16 98/56 (70) 100 05/21/19 22:49 82 16 40 05/21/19 22:00 70 17 91/58 (69) 100 05/21/19 21:15 101/62 05/21/19 21:01 74 16 40 05/21/19 21:00 74 16 100/59 (73) 99 05/21/19 20:33 75 05/21/19 20:00 Mechanical Ventilator 05/21/19 20:00 40 05/21/19 20:00 98.0 75 16 102/60 (74) 99 05/21/19 19:38 75 16 40 05/21/19 19:00 78 16 97/58 (71) 100 05/21/19 18:30 78 18 99/56 (70) 100 05/21/19 18:00 73 16 106/58 (74) 100 05/21/19 17:30 72 16 101/63 (76) 100 05/21/19 17:00 72 16 100/63 (75) 100 05/21/19 16:46 69 16 40 05/21/19 16:30 97.9 72 16 119/63 (81) 100 05/21/19 16:00 60 05/21/19 16:00 74 05/21/19 16:00 Mechanical Ventilator 05/21/19 16:00 73 16 105/60 (75) 100 05/21/19 15:17 74 16 40 05/21/19 15:00 70 16 106/52 (70) 100 05/21/19 14:45 73 16 106/63 (77) 100 05/21/19 14:30 73 16 104/65 (78) 100 05/21/19 14:15 73 16 104/65 (78) 100 05/21/19 14:00 70 16 107/67 (80) 100 I&O Intake and Output 05/21/19 05/22/19 19:00 07:00 Intake Total 2296.130 ml 2395.0 ml Output Total 810 ml 825 ml Balance 1486.130 ml 1570.0 ml Intake Free Water 160 ml 100 ml IV Total 1506.130 ml 1575.0 ml Tube Feeding 630 ml 720 ml Output Urine Total 810 ml 825 ml # Bowel Movements 2 Dressing: saturated Wound: other Drains: other Cardiovascular: RSR Respiratory: decreased breath sounds Abdomen: soft, other, decreased bowel sounds Extremities: no cyanosis, other Laboratory Tests Test 05/22/19 05:15 05/22/19 12:43 White Blood Count 18.0 K/UL (4.8-10.8) H Red Blood Count 3.33 M/UL (4.20-5.40) L Hemoglobin 8.6 G/DL (12.0-16.0) L Hematocrit 28.1 % (37.0-47.0) L Mean Corpuscular Volume 85 FL (80-99) Mean Corpuscular Hemoglobin 25.8 PG (27.0-31.0) L Mean Corpuscular Hemoglobin Concent 30.5 G/DL (32.0-36.0) L Red Cell Distribution Width 17.3 % (11.6-14.8) H Platelet Count 359 K/UL (150-450) Mean Platelet Volume 5.6 FL (6.5-10.1) L Neutrophils (%) (Auto) % (45.0-75.0) Lymphocytes (%) (Auto) % (20.0-45.0) Monocytes (%) (Auto) % (1.0-10.0) Eosinophils (%) (Auto) % (0.0-3.0) Basophils (%) (Auto) % (0.0-2.0) Differential Total Cells Counted 100 Neutrophils % (Manual) 87 % (45-75) H Lymphocytes % (Manual) 6 % (20-45) L Monocytes % (Manual) 1 % (1-10) Eosinophils % (Manual) 2 % (0-3) Basophils % (Manual) 0 % (0-2) Band Neutrophils 4 % (0-8) Platelet Estimate Adequate Platelet Morphology Normal Sodium Level 149 MMOL/L (136-145) H Potassium Level 3.2 MMOL/L (3.5-5.1) L Chloride Level 113 MMOL/L (98-107) H Carbon Dioxide Level 25 MMOL/L (21-32) Anion Gap 11 mmol/L (5-15) Blood Urea Nitrogen 13 mg/dL (7-18) Creatinine 0.3 MG/DL (0.55-1.30) L Estimat Glomerular Filtration Rate > 60 mL/min (>60) Glucose Level 377 MG/DL (74-106) H Uric Acid 3.9 MG/DL (2.6-7.2) Calcium Level 10.1 MG/DL (8.5-10.1) Phosphorus Level 1.9 MG/DL (2.5-4.9) L Magnesium Level 1.9 MG/DL (1.8-2.4) Total Bilirubin 0.2 MG/DL (0.2-1.0) Gamma Glutamyl Transpeptidase 114 U/L (5-85) H Aspartate Amino Transf (AST/SGOT) 42 U/L (15-37) H Alanine Aminotransferase (ALT/SGPT) 82 U/L (12-78) H Alkaline Phosphatase 148 U/L (46-116) H Troponin I 0.000 ng/mL (0.000-0.056) C-Reactive Protein, Quantitative 10.7 mg/dL (0.00-0.90) H Pro-B-Type Natriuretic Peptide 178 pg/mL (0-125) H Total Protein 6.1 G/DL (6.4-8.2) L Albumin 1.5 G/DL (3.4-5.0) L Globulin 4.6 g/dL Albumin/Globulin Ratio 0.3 (1.0-2.7) L Triglycerides Level 59 MG/DL (30-150) Cholesterol Level 126 MG/DL (< 200) LDL Cholesterol 72 mg/dL (<100) HDL Cholesterol 33 MG/DL (40-60) L Cholesterol/HDL Ratio 3.8 (3.3-4.4) Thyroid Stimulating Hormone (TSH) 1.289 uiU/mL (0.358-3.740) Vancomycin Level Trough 15.8 ug/mL (5.0-12.0) H Plan Problems: (1) Septic shock Assessment & Plan: fever, leukocytosis, tachycardia ill appearing in ICU currently on IV Abx as per ID ongoing work up will follow with recs trends labs (2) Multiple organ failure (3) MDRO (multiple drug resistant organisms) resistance (4) Severe anemia (5) Feeding by G-tube (6) Chronic respiratory failure (7) Hypercalcemia (8) Urinary tract infection (9) Chronic anoxic encephalopathy (10) Decubitus skin ulcer Assessment & Plan: Pt presented on admission with multiple pressure injuries: L earlobe grossly malodorous and necrotic with partial loss of earlobe.Ear canal and posterior to earlobe noted to be purple/red.(L)6cm x (W)1.5cm.Smal amt brown exudate noted. Dry eschar noted to R earlobe (L)1cm. Full thickness Sacral pressure with undermining.100% soft necrosis noted to base of wound and undermined borders. Additional soft necrosis noted to edges and periwound. Wound is malodorous. Small amt black exudate noted.(L)(L)7.5cm x (W)9.7cm. Unstageable pressure injury L heel .Base of wound fluctuant and purple in centre with surrounding dry eschar (L)3.4cm x (W)3.2cm.Non-blanchable erythema periwound. R heel dry and blanchable. Skin Assessed under collar of trach and no areas of concerns noted. Tx.Plan: Cleanse L earlobe with Dakin's 0.25% nataly. Apply Dakin's 0.25% moist [id number] and cover with Optifoam drsg Twice Daily and PRN. Cleanse Sacral area with Dakin's 0.25% Nataly.Loosely pack wound with Dakin's moist Kerlix. Apply Triad Periwound. Cover with Optifoam drsg. Twice Daily and prn. Apply Betadine to L heel. Cover with Optifoam drsg. Change every 3 days and prn. Reposition at least every 2hours or as tolerated. Off-load heels with pillow. (11) History of sudden cardiac arrest (12) Sepsis (13) ATN (acute tubular necrosis) (14) Acute and chronic respiratory failure Levon Nunes May 22, 2019 13:51
--- NOTE | 2019-05-22 14:00 | NUR ---
NURSE NOTES: Turn and repositioning the patient. No acute distress noted.
--- NOTE | 2019-05-22 14:30 | Internal Med Progress Note ---
Subjective Date of Service: May 22, 2019 Physician Name Sweeney,Chase Attending Physician Mainor Newsome MD Current Medications Medications (Trade) Dose Ordered Sig/Lavon Route PRN Reason Start Time Stop Time Status Last Admin Dose Admin Acetaminophen (Tylenol) 650 mg Q4H PRN ORAL FEVER (temp> 100.5F) 05/19/19 15:30 06/18/19 15:29 Albuterol/ Ipratropium (Albuterol/ Ipratropium) 3 ml Q4H PRN HHN Shortness of Breath 05/19/19 15:30 05/24/19 15:29 Chlorhexidine Gluconate (Nkechi-Hex 2%) 1 applic DAILY@2000 TOPIC 05/21/19 20:00 06/20/19 19:59 05/21/19 19:47 Dextrose 1,000 ml @ 75 mls/hr [id number] IV 05/22/19 11:30 06/20/19 11:29 05/22/19 11:24 Dextrose (Dextrose 50%) 25 ml Q30M PRN IV Hypoglycemia 05/20/19 11:45 06/19/19 11:44 Dextrose (Dextrose 50%) 50 ml Q30M PRN IV Hypoglycemia 05/20/19 11:45 06/19/19 11:44 Dopamine HCl/ Dextrose 250 ml @ 0 mls/hr Q24H IV 05/19/19 21:15 06/18/19 21:14 05/20/19 18:18 Heparin Sodium (Porcine) (Heparin 5000 units/ml) 5,000 units EVERY 12 HOURS SUBQ 05/19/19 21:00 06/18/19 20:59 05/22/19 08:39 Insulin Aspart (NovoLOG) Q4HR SUBQ 05/21/19 21:00 06/20/19 20:59 05/22/19 12:20 Insulin Detemir (Levemir) 24 units Q12HR SUBQ 05/22/19 09:00 06/20/19 20:59 05/22/19 08:38 Lorazepam (Ativan 2mg/ml 1ml) 2 mg Q2H PRN IV For Anxiety 05/19/19 15:30 05/26/19 15:29 Morphine Sulfate (Morphine Sulfate) 4 mg Q4H PRN IVP Severe Pain (Pain Scale 7-10) 05/19/19 15:30 05/26/19 15:29 Piperacillin Sod/ Tazobactam Sod 3.375 gm/Sodium Chloride 110 ml @ 27.5 mls/hr EVERY 8 HOURS IVPB 05/20/19 14:00 05/25/19 13:59 05/22/19 13:46 Potassium Phosphate 30 mm/ Sodium Chloride 285 ml @ 47.5 mls/hr ONCE ONCE IV 05/22/19 12:00 05/22/19 17:59 05/22/19 11:38 Sodium Hypochlorite (Dakin's Quarter Strength) 1 applic DAILY TOPIC 05/21/19 18:00 06/20/19 17:59 05/22/19 08:42 Vancomycin HCl (Vanco rx to dose) 1 ea DAILY PRN MISC Per rx protocol 05/19/19 17:30 06/18/19 17:29 Vancomycin HCl 1 gm/Dextrose 275 ml @ 183.708 mls/hr Q12H IVPB 05/21/19 02:00 05/26/19 01:59 05/22/19 14:04 Allergies: Coded Allergies: DIPHENHYDRAMINE (Verified Allergy, Unknown, 02/24/19) FLUPHENAZINE (Verified Allergy, Unknown, 02/24/19) ROS Limited/Unobtainable: Yes Subjective 69 YO M admitted with respiratory failure and pneumonia. Now gram neg sepsis. Intubated. Cover for Int Med-Dr Newsome. ICU Objective Last Vital Signs Date Time Temp Pulse Resp B/P (MAP) Pulse Ox O2 Delivery O2 Flow Rate FiO2 05/22/19 14:00 88 19 103/60 (74) 98 05/22/19 13:06 40 05/22/19 12:00 98.9 05/22/19 12:00 Mechanical Ventilator 05/20/19 00:00 70.0 Laboratory Tests Test 05/22/19 05:15 05/22/19 12:43 White Blood Count 18.0 K/UL (4.8-10.8) H Red Blood Count 3.33 M/UL (4.20-5.40) L Hemoglobin 8.6 G/DL (12.0-16.0) L Hematocrit 28.1 % (37.0-47.0) L Mean Corpuscular Volume 85 FL (80-99) Mean Corpuscular Hemoglobin 25.8 PG (27.0-31.0) L Mean Corpuscular Hemoglobin Concent 30.5 G/DL (32.0-36.0) L Red Cell Distribution Width 17.3 % (11.6-14.8) H Platelet Count 359 K/UL (150-450) Mean Platelet Volume 5.6 FL (6.5-10.1) L Neutrophils (%) (Auto) % (45.0-75.0) Lymphocytes (%) (Auto) % (20.0-45.0) Monocytes (%) (Auto) % (1.0-10.0) Eosinophils (%) (Auto) % (0.0-3.0) Basophils (%) (Auto) % (0.0-2.0) Differential Total Cells Counted 100 Neutrophils % (Manual) 87 % (45-75) H Lymphocytes % (Manual) 6 % (20-45) L Monocytes % (Manual) 1 % (1-10) Eosinophils % (Manual) 2 % (0-3) Basophils % (Manual) 0 % (0-2) Band Neutrophils 4 % (0-8) Platelet Estimate Adequate Platelet Morphology Normal Sodium Level 149 MMOL/L (136-145) H Potassium Level 3.2 MMOL/L (3.5-5.1) L Chloride Level 113 MMOL/L (98-107) H Carbon Dioxide Level 25 MMOL/L (21-32) Anion Gap 11 mmol/L (5-15) Blood Urea Nitrogen 13 mg/dL (7-18) Creatinine 0.3 MG/DL (0.55-1.30) L Estimat Glomerular Filtration Rate > 60 mL/min (>60) Glucose Level 377 MG/DL (74-106) H Uric Acid 3.9 MG/DL (2.6-7.2) Calcium Level 10.1 MG/DL (8.5-10.1) Phosphorus Level 1.9 MG/DL (2.5-4.9) L Magnesium Level 1.9 MG/DL (1.8-2.4) Total Bilirubin 0.2 MG/DL (0.2-1.0) Gamma Glutamyl Transpeptidase 114 U/L (5-85) H Aspartate Amino Transf (AST/SGOT) 42 U/L (15-37) H Alanine Aminotransferase (ALT/SGPT) 82 U/L (12-78) H Alkaline Phosphatase 148 U/L (46-116) H Troponin I 0.000 ng/mL (0.000-0.056) C-Reactive Protein, Quantitative 10.7 mg/dL (0.00-0.90) H Pro-B-Type Natriuretic Peptide 178 pg/mL (0-125) H Total Protein 6.1 G/DL (6.4-8.2) L Albumin 1.5 G/DL (3.4-5.0) L Globulin 4.6 g/dL Albumin/Globulin Ratio 0.3 (1.0-2.7) L Triglycerides Level 59 MG/DL (30-150) Cholesterol Level 126 MG/DL (< 200) LDL Cholesterol 72 mg/dL (<100) HDL Cholesterol 33 MG/DL (40-60) L Cholesterol/HDL Ratio 3.8 (3.3-4.4) Thyroid Stimulating Hormone (TSH) 1.289 uiU/mL (0.358-3.740) Vancomycin Level Trough 15.8 ug/mL (5.0-12.0) H Microbiology Date/Time Source Procedure Growth Status 05/19/19 15:46 Nasal Nares MRSA Culture - Final NO METHICILLIN RESISTANT STAPH AUREUS... Complete 05/19/19 15:30 Urine,Clean Catch Urine Culture - Final Mixed Urogenital Contaminants Complete 05/19/19 15:46 Rectum VRE Culture - Final Enterococcus Faecium - Vre Complete 05/19/19 15:46 Rectum - Final NO CARBAPENEM-RESISTANT ENTEROBACTERI... Complete Intake and Output 05/21/19 05/22/19 19:00 07:00 Intake Total 2296.130 ml 2395.0 ml Output Total 810 ml 825 ml Balance 1486.130 ml 1570.0 ml Intake Free Water 160 ml 100 ml IV Total 1506.130 ml 1575.0 ml Tube Feeding 630 ml 720 ml Output Urine Total 810 ml 825 ml # Bowel Movements 2 Objective PHYSICAL EXAMINATION: GENERAL: The patient is awake, responsive to painful stimuli with open her eyes. HEAD AND NECK: Pupils are reactive to light, anicteric. Neck was supple. Tracheostomy site is intact. LUNGS: Good air entry. No wheezing or rales. Mechanical breath sounds. HEART: Reveals S1, S2. Regular rhythm. No gallops. ABDOMEN: Soft, nondistended, and nontender. Positive bowel sounds. Status post, the patient has PEG, site is intact. RECTAL: Refused and deferred. GENITOURINARY: Refused and deferred. BACK: Has a sacral decubitus ulcer, stage IV with necrotic tissue, foul smell. EXTREMITIES: No cyanosis, clubbing, or edema. Contracted lower extremity was noted as well as upper extremity. NEUROLOGIC: Limited secondary to the patient's status, but the patient is unable to move the extremities. Assessment/Plan Assessment/Plan ASSESSMENT: 1. Sepsis secondary to pneumonia as well as infected decubitus ulcer. 2. Hypotension, most likely secondary to the sepsis and septic shock. 3. Hypertension. 4. Dyslipidemia. 5. Acute on chronic respiratory failure. 6. History of cardiac arrest with anoxic brain injury. 7. COPD. 8. Status post trach and PEG. 9. Infected sacral decubitus ulcer, stage IV, present on admission. PLAN: 1. Admit the patient to ICU. 2. At this time, code status is Full Code. 3. sepsis=Proteus Mirabilis. Broad-spectrum antibiotics with vancomycin as well as Zosyn. Await culture result. 4. Pneumonia/respiratory failure. Discussed case with Dr. Corrigan from Pulmonary Critical Care 5. D/W Dr. Chadwick Keith from Infectious Disease and Dr. Niall Levy from Cardiology. Chase Sweeney MD May 22, 2019 14:30
--- NOTE | 2019-05-22 16:00 | NUR ---
NURSE NOTES: Turn and repositioning the patient. No acute distress noted. Will continue to monitor.
--- NOTE | 2019-05-22 18:00 | NUR ---
NURSE NOTES: Turn and repositioning done. Oral care provided. Water flush via GT. stable condition.
--- NOTE | 2019-05-22 18:36 | NUR ---
CASE MANAGEMENT: REVIEW 05/22/2019 SI:RESPIRATORY FAILURE T 98.7 HR 79 RR 22 B/P 101/60 SATS 100% ON MECH VENT FIO2 40 WBC 18 NA 149 K 3.2 CL 113 CR 0.3 GLU 377 PHOS 1.9 AST 42 ALT 82 ALP 148 BNP 178 IS:IVF @ 75 mL/HR ZOSYN IV Q8H VANCO IV Q12H DOPAMINE IV PER PARAMETERS ICU
--- NOTE | 2019-05-22 19:16 | NUR ---
HAND-OFF: Report given to DB Lee. Stable condition.
[2019-05-22] MEDS: Dyna-Hex 2% Top Sol 2oz TOPIC SCH (19:34)
--- NOTE | 2019-05-22 19:45 | NUR ---
NURSE NOTES: PATIENT OPEN EYES, ON TRACH TO VENT, AC16/TV600/FIO2 40%/PEEP 5, O2 SATURATION 100% NOTED AT THIS TIME, ABDOMEN SOFT, NO BOWEL MOVEMENT STATUS, G TUBE INTACT AND PATENT, ONGOING VITAL AF 1.2 AT 60ML/HR, RESIDUE 30ML NOTED, KEPT HOB OVER 30 DEGREE, F/C INTACT AND PATENT, YELLOW URINE OUTED, TLC TO RIGHT FEMORAL INTACT AND PATENT, ONGOING D5W AT 75ML/HR VIA TLC, ON P200 BED, MADE LOWER BED POSITION, PROVIDED CALL LIGHT WITHIN REACH, ON BED ALARM, WILL CONTINUE TO MONITOR.
[2019-05-22] MEDS: DOPamine 400mg/250ml 250 ML IV SCH (21:15)
--- NOTE | 2019-05-22 22:00 | NUR ---
NURSE NOTES: REPOSITIONED AND ORAL CARE WAS DONE.
[2019-05-23] VITALS (24 sets, daily range): BP systolic 90–107; BP diastolic 53–66
--- NOTE | 2019-05-23 00:02 | NUR ---
NURSE NOTES: PATIENT ASLEEP STATUS, NO PAIN OR DISTRESS NOTED AT THIS TIME.
[2019-05-23] MEDS: NovoLOG Insulin Flexpen SUBQ SCH ×10 (00:46→20:43)
[2019-05-23] MEDS: Vancomycin 1gm/D5W 275ml IVPB SCH ×4 (01:33→14:12)
--- NOTE | 2019-05-23 02:29 | NUR ---
NURSE NOTES: PATIENT AWOKE, DID NOT FOLLOWED COMMANDS, KEPT HOB OVER 30 DEGREES, WILL CONTINUE TO MONITOR.
--- NOTE | 2019-05-23 03:50 | NUR ---
NURSE NOTES: MORNING CARE AND ORAL CARE WAS DONE.
[2019-05-23] MEDS: Piperacillin/Tazobactam 3.375 GM in NS 110 ML IVPB SCH ×3 (05:41→21:33)
--- NOTE | 2019-05-23 05:45 | NUR ---
NURSE NOTES: NO ACUTE DISTRESS NOTED AT THIS SHIFT.
[2019-05-23 06:20] LABS: HEMOGLOBIN 8.1 G/DL (12.0-16.0); MEAN CORPUSCULAR VOLUME 85 FL (80-99); PLATELET COUNT 343 K/UL (150-450); RED BLOOD COUNT 3.08 M/UL (4.20-5.40); RED CELL DISTRIBUTION WIDTH 17.6 % (11.6-14.8)
[2019-05-23 06:47] LABS: ALANINE AMINOTRANSFERASE 76 U/L (12-78); ALBUMIN 1.8 G/DL (3.4-5.0); ALBUMIN/GLOBULIN RATIO 0.4 (1.0-2.7); ALKALINE PHOSPHATASE 146 U/L (46-116); ANION GAP 11 mmol/L (5-15); ASPARTATE AMINO TRANSFERASE 41 U/L (15-37); BILIRUBIN,TOTAL 0.2 MG/DL (0.2-1.0); BLOOD UREA NITROGEN 11 mg/dL (7-18); CALCIUM 10.1 MG/DL (8.5-10.1); CARBON DIOXIDE 26 MMOL/L (21-32); CHLORIDE 111 MMOL/L (98-107); CREATININE 0.3 MG/DL (0.55-1.30); PHOSPHORUS 1.9 MG/DL (2.5-4.9); POTASSIUM 3.3 MMOL/L (3.5-5.1); SODIUM 148 MMOL/L (136-145)
--- NOTE | 2019-05-23 07:00 | NUR ---
RESPIRATORY NOTE: Patient received mechanically ventilated on PB 840. Vent alarms are functional and audible. There is no sign of distress, pt is passively resting in bed. There is an ambu bag available at the bedside and the vent is connected to a red outlet. Will continue to monitor.
--- NOTE | 2019-05-23 07:05 | NUR ---
HAND-OFF: Report given to DB NESS.
--- NOTE | 2019-05-23 07:15 | NUR ---
NURSE NOTES: Received report from Brennan Nolasco RN. Patient asleep in bed, obtunded. SR 74 on rn birthing. Trach to vent with settings of AC 16, TV 600, FiO2 30%, PEEP 5, saturating at 100%. GT feeding of Vital AF 1.2 running @ 60 cc/hr, no residuals noted, HoB elevated. Cormier catheter patent and draining well. Right femoral TLC infusing D5W @ 75 cc/hr and Zosyn 3.375g @ 27.5 cc/hr, asymptomatic. Bed locked in lowest position with side rails up x 3. All needs attended to. Will continue to monitor.
--- NOTE | 2019-05-23 07:31 | NUR ---
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 PNA VS: BP 96/61, P 73, T 97.4, RR 18, SpO2 97 on VENT AC 16, TV 600, PEEP 5.0, FiO2 30 WBC 14.0, RBC 3.08, H&H 8.1/26.0, Na 148, K 3.3, CR 0.3, GLUCOSE 234, AST 41, ALK PHOS 146 IS:ZOSYN 110ml IVPB NOVOLOG SUBQ VANCOMYCIN 275ml IVPB D5W x1L IV HEPARIN SUBQ ICU STATUS
--- NOTE | 2019-05-23 08:19 | NUR ---
NURSE NOTES: Chadwick Ricci, public guardian, called for PICC line consent. Unable to reach at this time, left message with call back number.
[2019-05-23] MEDS: Levemir Flexpen SUBQ SCH ×2 (08:44→20:41)
[2019-05-23] MEDS: Heparin 5000 units/ml inj SUBQ SCH ×2 (08:46→20:41)
[2019-05-23] MEDS: Dakin's 0.125% Soln (Quarter Strength) 16oz TOPIC SCH (08:46)
--- NOTE | 2019-05-23 10:02 | NUR ---
NURSE NOTES: Patient seen and evaluated by Dr. Corrigan at bedside. No new orders received. Will continue to monitor.
--- NOTE | 2019-05-23 10:08 | Pulmonolgy Critical Care Note ---
Critical Care - Asmt/Plan Problems: (1) Acute and chronic respiratory failure (2) Septic shock (3) Multiple organ failure (4) Feeding by G-tube (5) Chronic anoxic encephalopathy (6) Decubitus skin ulcer (7) History of sudden cardiac arrest (8) Sepsis (9) ATN (acute tubular necrosis) Respiratory: monitor respiratory rate, adjust FIO2, CXR Cardiac: continue to monitor HR/BP Renal: F/U I&O, keep IV fluid, check electrolytes Infectious Disease: check cultures, continue antibiotics Gastrointestinal: continue feedings/current rate Endocrine: monitor blood sugar Hematologic: monitor H/H, transfuse if hgb<8.5 Neurologic: PRN Ativan, keep patient comfortable Disposition: keep in ICU Time Spent (Minutes): 40 Notes Reviewed: slot supervisor, cardio, renal Discussed with: nurses, consultants, director case managementfield account manager - Objective Last 24 Hour Vital Signs Date Time Temp Pulse Resp B/P (MAP) Pulse Ox O2 Delivery O2 Flow Rate FiO2 05/23/19 09:21 68 16 30 05/23/19 09:00 77 16 92/55 (67) 100 05/23/19 08:00 98.1 72 16 93/60 (71) 100 05/23/19 08:00 73 05/23/19 08:00 Mechanical Ventilator 05/23/19 08:00 30 05/23/19 07:00 80 19 30 05/23/19 07:00 74 17 90/61 (71) 100 05/23/19 06:00 73 18 96/61 (73) 100 05/23/19 05:00 73 16 99/66 (77) 100 05/23/19 04:36 72 16 30 05/23/19 04:00 81 05/23/19 04:00 Mechanical Ventilator 05/23/19 04:00 97.4 82 17 104/63 (77) 97 05/23/19 04:00 30 05/23/19 03:00 80 17 107/64 (78) 97 05/23/19 02:52 77 18 30 05/23/19 02:00 75 20 98/60 (73) 98 05/23/19 01:30 72 18 30 05/23/19 01:00 76 19 99/56 (70) 98 05/23/19 00:00 30 05/23/19 00:00 78 05/23/19 00:00 97.8 78 18 98/56 (70) 99 05/23/19 00:00 Mechanical Ventilator 05/22/19 23:24 83 21 30 05/22/19 23:00 85 20 101/62 (75) 100 05/22/19 22:00 80 20 99/52 (68) 100 05/22/19 21:15 104/63 05/22/19 21:00 80 20 104/63 (77) 97 05/22/19 20:45 35 05/22/19 20:45 77 21 35 05/22/19 20:00 Mechanical Ventilator 05/22/19 20:00 98.8 83 21 108/60 (76) 97 05/22/19 20:00 83 05/22/19 20:00 40 05/22/19 19:29 81 21 40 05/22/19 19:00 80 21 104/60 (75) 100 05/22/19 18:00 83 21 109/62 (78) 100 05/22/19 17:07 86 18 40 05/22/19 17:00 80 22 106/60 (75) 100 05/22/19 16:00 40 05/22/19 16:00 98.7 79 22 101/60 (74) 100 05/22/19 16:00 Mechanical Ventilator 05/22/19 15:30 83 05/22/19 15:23 82 21 40 05/22/19 15:00 83 22 102/58 (73) 97 05/22/19 14:00 88 19 103/60 (74) 98 05/22/19 13:06 80 18 40 05/22/19 13:00 78 18 107/60 (76) 99 05/22/19 12:00 98.9 83 18 105/60 (75) 100 05/22/19 12:00 84 05/22/19 12:00 Mechanical Ventilator 05/22/19 12:00 40 05/22/19 11:22 78 17 40 05/22/19 11:00 77 19 97/57 (70) 100 Status: awake Condition: critical, grave Neck: full ROM Lungs: clear Heart: HR/BP stable, HR/BP unstable Abdomen: non-tender, feeding tube Extremities: edema Accucheck: 229 Critical Care - Subjective ROS Limited/Unobtainable: No Condition: critical FI02: 30 Vent Support Breath Rate: 16 Vent Support Mode: AC Vent Tidal Volume: 600 Sputum Amount: Small PEEP: 5.0 PIP: 33 Tube Feeding Amount: 60 I&O: Intake and Output 05/22/19 05/23/19 19:00 07:00 Intake Total 2540.000 ml 2091.5 ml Output Total 980 ml 1185 ml Balance 1560.000 ml 906.5 ml Intake Free Water 230 ml 50 ml IV Total 1590.000 ml 1321.5 ml Tube Feeding 720 ml 720 ml Output Urine Total 980 ml 1185 ml # Bowel Movements 2 CXR: LLL infiltrate Labs: Laboratory Tests Test 05/22/19 12:43 05/23/19 04:00 05/23/19 07:11 Vancomycin Level Trough 15.8 ug/mL (5.0-12.0) H White Blood Count 14.0 K/UL (4.8-10.8) H Red Blood Count 3.08 M/UL (4.20-5.40) L Hemoglobin 8.1 G/DL (12.0-16.0) L Hematocrit 26.0 % (37.0-47.0) L Mean Corpuscular Volume 85 FL (80-99) Mean Corpuscular Hemoglobin 26.4 PG (27.0-31.0) L Mean Corpuscular Hemoglobin Concent 31.2 G/DL (32.0-36.0) L Red Cell Distribution Width 17.6 % (11.6-14.8) H Platelet Count 343 K/UL (150-450) Mean Platelet Volume 5.5 FL (6.5-10.1) L Neutrophils (%) (Auto) % (45.0-75.0) Lymphocytes (%) (Auto) % (20.0-45.0) Monocytes (%) (Auto) % (1.0-10.0) Eosinophils (%) (Auto) % (0.0-3.0) Basophils (%) (Auto) % (0.0-2.0) Sodium Level 148 MMOL/L (136-145) H Potassium Level 3.3 MMOL/L (3.5-5.1) L Chloride Level 111 MMOL/L (98-107) H Carbon Dioxide Level 26 MMOL/L (21-32) Anion Gap 11 mmol/L (5-15) Blood Urea Nitrogen 11 mg/dL (7-18) Creatinine 0.3 MG/DL (0.55-1.30) L Estimat Glomerular Filtration Rate > 60 mL/min (>60) Glucose Level 234 MG/DL (74-106) #H Calcium Level 10.1 MG/DL (8.5-10.1) Phosphorus Level 1.9 MG/DL (2.5-4.9) L Magnesium Level 2.0 MG/DL (1.8-2.4) Total Bilirubin 0.2 MG/DL (0.2-1.0) Aspartate Amino Transf (AST/SGOT) 41 U/L (15-37) H Alanine Aminotransferase (ALT/SGPT) 76 U/L (12-78) Alkaline Phosphatase 146 U/L (46-116) H Total Protein 6.1 G/DL (6.4-8.2) L Albumin 1.8 G/DL (3.4-5.0) L Globulin 4.3 g/dL Albumin/Globulin Ratio 0.4 (1.0-2.7) L Arterial Blood pH 7.481 (7.350-7.450) Arterial Blood Partial Pressure CO2 29.9 mmHg (35.0-45.0) L Arterial Blood Partial Pressure O2 127.8 mmHg (75.0-100.0) H Arterial Blood HCO3 21.8 mmol/L (22.0-26.0) L Arterial Blood Oxygen Saturation 98.5 % (95-100) Arterial Blood Base Excess -1.2 (-2-2) Tristan Test Positive Rula Corrigan MD May 23, 2019 10:08
--- NOTE | 2019-05-23 11:04 | Infectious Diseases Prog Note ---
Assessment/Plan Assessment/Plan 69 yo female with PMHx of HTN, HLD chronic respiratory failure s/p PEG and Trach who was sen [facility] ED [facility] her [facility] for [facility]B. Sepsis UA pos UCx 05/19/19 - Mixed leslee Leukocytosis of 19 Blood Cx 05/19/19 - Proteus x 2 sets Respiratory distress , Probable PNA On Vent CXR - Left sided consolidation. No Fever Elevated LFTs Sacral ulcer Need debridement Ear wound healing chronic respiratory failure s/p trach/vent PEG schizoaffective disorder Plan: - Continue Vancomycin #4 and Zosyn #4 pending cultures -Monitor CBC/CMP, temperatures -BCxx 2, Sp cx Thank you for this consult. We will continue to follow the patient during this hospitalization. Subjective Allergies: Coded Allergies: DIPHENHYDRAMINE (Verified Allergy, Unknown, 02/24/19) FLUPHENAZINE (Verified Allergy, Unknown, 02/24/19) Subjective afebrile wbc improving bacteremic Objective Vital Signs Last 24 Hour Vital Signs Date Time Temp Pulse Resp B/P (MAP) Pulse Ox O2 Delivery O2 Flow Rate FiO2 05/23/19 10:00 70 16 92/58 (69) 100 05/23/19 09:21 68 16 30 05/23/19 09:00 77 16 92/55 (67) 100 05/23/19 08:00 98.1 72 16 93/60 (71) 100 05/23/19 08:00 73 05/23/19 08:00 Mechanical Ventilator 05/23/19 08:00 30 05/23/19 07:00 80 19 30 05/23/19 07:00 74 17 90/61 (71) 100 05/23/19 06:00 73 18 96/61 (73) 100 05/23/19 05:00 73 16 99/66 (77) 100 05/23/19 04:36 72 16 30 05/23/19 04:00 81 05/23/19 04:00 Mechanical Ventilator 05/23/19 04:00 97.4 82 17 104/63 (77) 97 05/23/19 04:00 30 05/23/19 03:00 80 17 107/64 (78) 97 05/23/19 02:52 77 18 30 05/23/19 02:00 75 20 98/60 (73) 98 05/23/19 01:30 72 18 30 05/23/19 01:00 76 19 99/56 (70) 98 05/23/19 00:00 30 05/23/19 00:00 78 05/23/19 00:00 97.8 78 18 98/56 (70) 99 05/23/19 00:00 Mechanical Ventilator 05/22/19 23:24 83 21 30 05/22/19 23:00 85 20 101/62 (75) 100 05/22/19 22:00 80 20 99/52 (68) 100 05/22/19 21:15 104/63 05/22/19 21:00 80 20 104/63 (77) 97 05/22/19 20:45 35 05/22/19 20:45 77 21 35 05/22/19 20:00 Mechanical Ventilator 05/22/19 20:00 98.8 83 21 108/60 (76) 97 05/22/19 20:00 83 05/22/19 20:00 40 05/22/19 19:29 81 21 40 05/22/19 19:00 80 21 104/60 (75) 100 05/22/19 18:00 83 21 109/62 (78) 100 05/22/19 17:07 86 18 40 05/22/19 17:00 80 22 106/60 (75) 100 05/22/19 16:00 40 05/22/19 16:00 98.7 79 22 101/60 (74) 100 05/22/19 16:00 Mechanical Ventilator 05/22/19 15:30 83 05/22/19 15:23 82 21 40 05/22/19 15:00 83 22 102/58 (73) 97 05/22/19 14:00 88 19 103/60 (74) 98 05/22/19 13:06 80 18 40 05/22/19 13:00 78 18 107/60 (76) 99 05/22/19 12:00 98.9 83 18 105/60 (75) 100 05/22/19 12:00 84 05/22/19 12:00 Mechanical Ventilator 05/22/19 12:00 40 05/22/19 11:22 78 17 40 05/22/19 11:00 77 19 97/57 (70) 100 Height (Feet): 5 Height (Inches): 3.00 Weight (Pounds): 156 Objective Gen: Not following, Trached on Vent HEENT: NCAT, MMM, PERRL LUNGS: Course B/L CARDS: RRR, S1, S2 ABD: Soft, NT, ND, + BS NEURO: Not verbal, No following SKIN: Warm/dry, No rashes, Sacral decub stage 4 Laboratory Tests Test 05/22/19 12:43 05/23/19 04:00 05/23/19 07:11 Vancomycin Level Trough 15.8 ug/mL (5.0-12.0) H White Blood Count 14.0 K/UL (4.8-10.8) H Red Blood Count 3.08 M/UL (4.20-5.40) L Hemoglobin 8.1 G/DL (12.0-16.0) L Hematocrit 26.0 % (37.0-47.0) L Mean Corpuscular Volume 85 FL (80-99) Mean Corpuscular Hemoglobin 26.4 PG (27.0-31.0) L Mean Corpuscular Hemoglobin Concent 31.2 G/DL (32.0-36.0) L Red Cell Distribution Width 17.6 % (11.6-14.8) H Platelet Count 343 K/UL (150-450) Mean Platelet Volume 5.5 FL (6.5-10.1) L Neutrophils (%) (Auto) % (45.0-75.0) Lymphocytes (%) (Auto) % (20.0-45.0) Monocytes (%) (Auto) % (1.0-10.0) Eosinophils (%) (Auto) % (0.0-3.0) Basophils (%) (Auto) % (0.0-2.0) Sodium Level 148 MMOL/L (136-145) H Potassium Level 3.3 MMOL/L (3.5-5.1) L Chloride Level 111 MMOL/L (98-107) H Carbon Dioxide Level 26 MMOL/L (21-32) Anion Gap 11 mmol/L (5-15) Blood Urea Nitrogen 11 mg/dL (7-18) Creatinine 0.3 MG/DL (0.55-1.30) L Estimat Glomerular Filtration Rate > 60 mL/min (>60) Glucose Level 234 MG/DL (74-106) #H Calcium Level 10.1 MG/DL (8.5-10.1) Phosphorus Level 1.9 MG/DL (2.5-4.9) L Magnesium Level 2.0 MG/DL (1.8-2.4) Total Bilirubin 0.2 MG/DL (0.2-1.0) Aspartate Amino Transf (AST/SGOT) 41 U/L (15-37) H Alanine Aminotransferase (ALT/SGPT) 76 U/L (12-78) Alkaline Phosphatase 146 U/L (46-116) H Total Protein 6.1 G/DL (6.4-8.2) L Albumin 1.8 G/DL (3.4-5.0) L Globulin 4.3 g/dL Albumin/Globulin Ratio 0.4 (1.0-2.7) L Arterial Blood pH 7.481 (7.350-7.450) Arterial Blood Partial Pressure CO2 29.9 mmHg (35.0-45.0) L Arterial Blood Partial Pressure O2 127.8 mmHg (75.0-100.0) H Arterial Blood HCO3 21.8 mmol/L (22.0-26.0) L Arterial Blood Oxygen Saturation 98.5 % (95-100) Arterial Blood Base Excess -1.2 (-2-2) Tristan Test Positive Current Medications Medications (Trade) Dose Ordered Sig/Lavon Route PRN Reason Start Time Stop Time Status Last Admin Dose Admin Acetaminophen (Tylenol) 650 mg Q4H PRN ORAL FEVER (temp> 100.5F) 05/19/19 15:30 06/18/19 15:29 Albuterol/ Ipratropium (Albuterol/ Ipratropium) 3 ml Q4H PRN HHN Shortness of Breath 05/19/19 15:30 05/24/19 15:29 Chlorhexidine Gluconate (Nkechi-Hex 2%) 1 applic DAILY@2000 TOPIC 05/21/19 20:00 06/20/19 19:59 05/22/19 19:34 Dextrose 1,000 ml @ 75 mls/hr [id number] IV 05/22/19 11:30 06/20/19 11:29 05/23/19 00:45 Dextrose (Dextrose 50%) 25 ml Q30M PRN IV Hypoglycemia 05/23/19 07:30 06/22/19 07:29 Dextrose (Dextrose 50%) 50 ml Q30M PRN IV Hypoglycemia 05/23/19 07:30 06/22/19 07:29 Dopamine HCl/ Dextrose 250 ml @ 0 mls/hr Q24H IV 05/19/19 21:15 06/18/19 21:14 05/20/19 18:18 Heparin Sodium (Porcine) (Heparin 5000 units/ml) 5,000 units EVERY 12 HOURS SUBQ 05/19/19 21:00 06/18/19 20:59 05/22/19 20:57 Insulin Aspart (NovoLOG) Q4HR SUBQ 05/21/19 21:00 06/20/19 20:59 05/23/19 08:46 Insulin Aspart (NovoLOG) 6 units EVERY 4 HOURS SUBQ 05/23/19 09:00 06/22/19 08:59 05/23/19 08:45 Insulin Detemir (Levemir) 24 units Q12HR SUBQ 05/22/19 09:00 06/20/19 20:59 05/23/19 08:44 Lorazepam (Ativan 2mg/ml 1ml) 2 mg Q2H PRN IV For Anxiety 05/19/19 15:30 05/26/19 15:29 Morphine Sulfate (Morphine Sulfate) 4 mg Q4H PRN IVP Severe Pain (Pain Scale 7-10) 05/19/19 15:30 05/26/19 15:29 Piperacillin Sod/ Tazobactam Sod 3.375 gm/Sodium Chloride 110 ml @ 27.5 mls/hr EVERY 8 HOURS IVPB 05/20/19 14:00 05/25/19 13:59 05/23/19 05:41 Sodium Hypochlorite (Dakin's Quarter Strength) 1 applic DAILY TOPIC 05/21/19 18:00 06/20/19 17:59 05/23/19 08:46 Vancomycin HCl (Vanco rx to dose) 1 ea DAILY PRN MISC Per rx protocol 05/19/19 17:30 06/18/19 17:29 Vancomycin HCl 1 gm/Dextrose 275 ml @ 183.708 mls/hr Q12H IVPB 05/21/19 02:00 05/26/19 01:59 05/23/19 01:33 Renae Conteh M.D. May 23, 2019 11:04
--- NOTE | 2019-05-23 11:14 | NUR ---
RADIOLOGY DEPT., CHEST X-RAY DONE.-P.DYE
--- NOTE | 2019-05-23 11:20 | NUR ---
NURSE NOTES: New specimen collection orders placed by Dr. Conteh. Blood culture collected peripherally by php web developer and sent to lab.
--- NOTE | 2019-05-23 12:05 | NUR ---
NURSE NOTES: Still no call back from patient's public guardian regarding PICC line consent. Right wrist 20g saline lock inserted.
[2019-05-23] MEDS ORDERED: Potassium Phosphate 30 MM in NS 275 ML IV SCH (13:00)
--- NOTE | 2019-05-23 13:01 | Diagnostic Imaging Report ---
Indication: Dyspnea Comparison: 05/22/2019 A single view chest radiograph was obtained. Findings: Dense retrocardiac opacity noted. Heart size is stable. Tracheostomy again noted. Mild vascular congestion suspected currently. IMPRESSION: Suspect mild pulmonary vascular congestion. Correlate clinically. No change is
--- NOTE | 2019-05-23 13:52 | Cardiac Electrophysiology PN ---
Assessment/Plan Assessment/Plan 1. Septic and hypovolemic shock with white count of 20,000 with multiple decubitus ulcers. The patient is getting d5W at 75cc/hr as well as IV antibiotic. Off pressors. Echo EF 65% 2. Ventilator-dependent respiratory failure, status post tracheostomy. 3. Dysphagia, status post PEG placement. 4. Encephalopathy. 5. Chronic decubitus ulcers. Sacral debridement after out of ICU per Dr Nunes 6. Dehydration and hypernatremia. JOLYNN RN and Dr. Arreola Subjective Subjective Off Dopamine since 05/21/19 in ICU. In SR. On the vent via trach. Objective Last 24 Hour Vital Signs Date Time Temp Pulse Resp B/P (MAP) Pulse Ox O2 Delivery O2 Flow Rate FiO2 05/23/19 12:00 Mechanical Ventilator 05/23/19 12:00 97.5 77 18 90/60 (70) 100 05/23/19 12:00 30 05/23/19 11:20 64 16 30 05/23/19 11:00 75 17 90/53 (65) 100 05/23/19 10:00 70 16 92/58 (69) 100 05/23/19 09:21 68 16 30 05/23/19 09:00 77 16 92/55 (67) 100 05/23/19 08:00 98.1 72 16 93/60 (71) 100 05/23/19 08:00 73 05/23/19 08:00 Mechanical Ventilator 05/23/19 08:00 30 05/23/19 07:00 80 19 30 05/23/19 07:00 74 17 90/61 (71) 100 05/23/19 06:00 73 18 96/61 (73) 100 05/23/19 05:00 73 16 99/66 (77) 100 05/23/19 04:36 72 16 30 05/23/19 04:00 81 05/23/19 04:00 Mechanical Ventilator 05/23/19 04:00 97.4 82 17 104/63 (77) 97 05/23/19 04:00 30 05/23/19 03:00 80 17 107/64 (78) 97 05/23/19 02:52 77 18 30 05/23/19 02:00 75 20 98/60 (73) 98 05/23/19 01:30 72 18 30 05/23/19 01:00 76 19 99/56 (70) 98 05/23/19 00:00 30 05/23/19 00:00 78 05/23/19 00:00 97.8 78 18 98/56 (70) 99 05/23/19 00:00 Mechanical Ventilator 05/22/19 23:24 83 21 30 05/22/19 23:00 85 20 101/62 (75) 100 05/22/19 22:00 80 20 99/52 (68) 100 05/22/19 21:15 104/63 05/22/19 21:00 80 20 104/63 (77) 97 05/22/19 20:45 35 05/22/19 20:45 77 21 35 05/22/19 20:00 Mechanical Ventilator 05/22/19 20:00 98.8 83 21 108/60 (76) 97 05/22/19 20:00 83 05/22/19 20:00 40 05/22/19 19:29 81 21 40 05/22/19 19:00 80 21 104/60 (75) 100 05/22/19 18:00 83 21 109/62 (78) 100 05/22/19 17:07 86 18 40 05/22/19 17:00 80 22 106/60 (75) 100 05/22/19 16:00 40 05/22/19 16:00 98.7 79 22 101/60 (74) 100 05/22/19 16:00 Mechanical Ventilator 05/22/19 15:30 83 05/22/19 15:23 82 21 40 05/22/19 15:00 83 22 102/58 (73) 97 05/22/19 14:00 88 19 103/60 (74) 98 Intake and Output 05/22/19 05/23/19 19:00 07:00 Intake Total 2540.000 ml 2091.5 ml Output Total 980 ml 1185 ml Balance 1560.000 ml 906.5 ml Intake Free Water 230 ml 50 ml IV Total 1590.000 ml 1321.5 ml Tube Feeding 720 ml 720 ml Output Urine Total 980 ml 1185 ml # Bowel Movements 2 Laboratory Tests Test 05/23/19 04:00 05/23/19 07:11 White Blood Count 14.0 K/UL (4.8-10.8) H Red Blood Count 3.08 M/UL (4.20-5.40) L Hemoglobin 8.1 G/DL (12.0-16.0) L Hematocrit 26.0 % (37.0-47.0) L Mean Corpuscular Volume 85 FL (80-99) Mean Corpuscular Hemoglobin 26.4 PG (27.0-31.0) L Mean Corpuscular Hemoglobin Concent 31.2 G/DL (32.0-36.0) L Red Cell Distribution Width 17.6 % (11.6-14.8) H Platelet Count 343 K/UL (150-450) Mean Platelet Volume 5.5 FL (6.5-10.1) L Neutrophils (%) (Auto) % (45.0-75.0) Lymphocytes (%) (Auto) % (20.0-45.0) Monocytes (%) (Auto) % (1.0-10.0) Eosinophils (%) (Auto) % (0.0-3.0) Basophils (%) (Auto) % (0.0-2.0) Sodium Level 148 MMOL/L (136-145) H Potassium Level 3.3 MMOL/L (3.5-5.1) L Chloride Level 111 MMOL/L (98-107) H Carbon Dioxide Level 26 MMOL/L (21-32) Anion Gap 11 mmol/L (5-15) Blood Urea Nitrogen 11 mg/dL (7-18) Creatinine 0.3 MG/DL (0.55-1.30) L Estimat Glomerular Filtration Rate > 60 mL/min (>60) Glucose Level 234 MG/DL (74-106) #H Calcium Level 10.1 MG/DL (8.5-10.1) Phosphorus Level 1.9 MG/DL (2.5-4.9) L Magnesium Level 2.0 MG/DL (1.8-2.4) Total Bilirubin 0.2 MG/DL (0.2-1.0) Aspartate Amino Transf (AST/SGOT) 41 U/L (15-37) H Alanine Aminotransferase (ALT/SGPT) 76 U/L (12-78) Alkaline Phosphatase 146 U/L (46-116) H Total Protein 6.1 G/DL (6.4-8.2) L Albumin 1.8 G/DL (3.4-5.0) L Globulin 4.3 g/dL Albumin/Globulin Ratio 0.4 (1.0-2.7) L Arterial Blood pH 7.481 (7.350-7.450) Arterial Blood Partial Pressure CO2 29.9 mmHg (35.0-45.0) L Arterial Blood Partial Pressure O2 127.8 mmHg (75.0-100.0) H Arterial Blood HCO3 21.8 mmol/L (22.0-26.0) L Arterial Blood Oxygen Saturation 98.5 % (95-100) Arterial Blood Base Excess -1.2 (-2-2) Tristan Test Positive Objective HEAD AND NECK: No JVD. She is status post tracheostomy. LUNGS: Coarse rhonchi. CARDIOVASCULAR: Shows regular S1 and S2 with no gallop. ABDOMEN: Status post G-tube. EXTREMITIES/SKIN: She has ulcers and sacral decubitus. Niall Levy MD May 23, 2019 13:52
--- NOTE | 2019-05-23 13:56 | NUR ---
NURSE NOTES: Patient seen and evaluated by Dr. Levy at bedside. No new orders received at this time. Per Dr. Levy, patient is stable enough to downgrade to SDU.
--- NOTE | 2019-05-23 14:43 | NUR ---
NURSE NOTES: Patient seen and evaluated by Dr. Conteh. Patient afebrile at this time. Blood cultures and sputum culture sent to lab.
--- NOTE | 2019-05-23 15:27 | Nephrology Progress Note ---
Assessment/Plan Problem List: (1) Hypercalcemia (2) Chronic anoxic encephalopathy (3) Acute and chronic respiratory failure (4) Severe anemia Assessment Electrolyte imbalance: High Na and Low K Severe Hypercalcemia Severe HypoAlbuminemia DM Others: Acute and chronic respiratory failure Septic shock Multiple organ failure Feeding by G-tube Chronic anoxic encephalopathy Decubitus skin ulcer History of sudden cardiac arrest ATN (acute tubular necrosis) and Oliguria Plan Plan; Aredia 90 mg on 05/21 Nasal calcitonin start today 05/23 D5W 75 cc / h K Phos IV monitor Lytes and Ca and Phos per orders discussed with RN Subjective ROS Limited/Unobtainable: Yes Objective Objective Last 24 Hour Vital Signs Date Time Temp Pulse Resp B/P (MAP) Pulse Ox O2 Delivery O2 Flow Rate FiO2 05/23/19 13:15 80 16 30 05/23/19 12:00 74 05/23/19 12:00 Mechanical Ventilator 05/23/19 12:00 97.5 77 18 90/60 (70) 100 05/23/19 12:00 30 05/23/19 11:20 64 16 30 05/23/19 11:00 75 17 90/53 (65) 100 05/23/19 10:00 70 16 92/58 (69) 100 05/23/19 09:21 68 16 30 05/23/19 09:00 77 16 92/55 (67) 100 05/23/19 08:00 98.1 72 16 93/60 (71) 100 05/23/19 08:00 73 05/23/19 08:00 Mechanical Ventilator 05/23/19 08:00 30 05/23/19 07:00 80 19 30 05/23/19 07:00 74 17 90/61 (71) 100 05/23/19 06:00 73 18 96/61 (73) 100 05/23/19 05:00 73 16 99/66 (77) 100 05/23/19 04:36 72 16 30 05/23/19 04:00 81 05/23/19 04:00 Mechanical Ventilator 05/23/19 04:00 97.4 82 17 104/63 (77) 97 05/23/19 04:00 30 05/23/19 03:00 80 17 107/64 (78) 97 05/23/19 02:52 77 18 30 05/23/19 02:00 75 20 98/60 (73) 98 05/23/19 01:30 72 18 30 05/23/19 01:00 76 19 99/56 (70) 98 05/23/19 00:00 30 05/23/19 00:00 78 05/23/19 00:00 97.8 78 18 98/56 (70) 99 05/23/19 00:00 Mechanical Ventilator 05/22/19 23:24 83 21 30 05/22/19 23:00 85 20 101/62 (75) 100 05/22/19 22:00 80 20 99/52 (68) 100 05/22/19 21:15 104/63 05/22/19 21:00 80 20 104/63 (77) 97 05/22/19 20:45 35 05/22/19 20:45 77 21 35 05/22/19 20:00 Mechanical Ventilator 05/22/19 20:00 98.8 83 21 108/60 (76) 97 05/22/19 20:00 83 05/22/19 20:00 40 05/22/19 19:29 81 21 40 05/22/19 19:00 80 21 104/60 (75) 100 05/22/19 18:00 83 21 109/62 (78) 100 05/22/19 17:07 86 18 40 05/22/19 17:00 80 22 106/60 (75) 100 05/22/19 16:00 40 05/22/19 16:00 98.7 79 22 101/60 (74) 100 05/22/19 16:00 Mechanical Ventilator 05/22/19 15:30 83 Intake and Output 05/22/19 05/23/19 19:00 07:00 Intake Total 2540.000 ml 2091.5 ml Output Total 980 ml 1185 ml Balance 1560.000 ml 906.5 ml Intake Free Water 230 ml 50 ml IV Total 1590.000 ml 1321.5 ml Tube Feeding 720 ml 720 ml Output Urine Total 980 ml 1185 ml # Bowel Movements 2 Laboratory Tests 05/23/19 04:00: White Blood Count 14.0H, Red Blood Count 3.08L, Hemoglobin 8.1L, Hematocrit 26.0L, Mean Corpuscular Volume 85, Mean Corpuscular Hemoglobin 26.4L, Mean Corpuscular Hemoglobin Concent 31.2L, Red Cell Distribution Width 17.6H, Platelet Count 343, Mean Platelet Volume 5.5L, Neutrophils (%) (Auto) , Lymphocytes (%) (Auto) , Monocytes (%) (Auto) , Eosinophils (%) (Auto) , Basophils (%) (Auto) , Sodium Level 148H, Potassium Level 3.3L, Chloride Level 111H, Carbon Dioxide Level 26, Anion Gap 11, Blood Urea Nitrogen 11, Creatinine 0.3L, Estimat Glomerular Filtration Rate > 60, Glucose Level 234#H, Calcium Level 10.1, Phosphorus Level 1.9L, Magnesium Level 2.0, Total Bilirubin 0.2, Aspartate Amino Transf (AST/SGOT) 41H, Alanine Aminotransferase (ALT/SGPT) 76, Alkaline Phosphatase 146H, Total Protein 6.1L, Albumin 1.8L, Globulin 4.3, Albumin/Globulin Ratio 0.4L 05/23/19 07:11: Arterial Blood pH 7.481H, Arterial Blood Partial Pressure CO2 29.9L, Arterial Blood Partial Pressure O2 127.8H, Arterial Blood HCO3 21.8L, Arterial Blood Oxygen Saturation 98.5, Arterial Blood Base Excess -1.2, Tristan Test Positive Height (Feet): 5 Height (Inches): 3.00 Weight (Pounds): 156 General Appearance: no apparent distress EENT: other - vented Cardiovascular: tachycardia Respiratory/Chest: decreased breath sounds Abdomen: distended Palomo Lizarraga MD May 23, 2019 15:27
--- NOTE | 2019-05-23 15:44 | NUR ---
RD ASSESSMENT & RECOMMENDATIONS SEE CARE ACTIVITY FOR COMPLETE ASSESSMENT DAILY ESTIMATED NEEDS: Needs based on Critical care, wounds 65kg 25-30 kcals/kg 3469-7984 total kcals 1.5-2 g protein/kg 98-130 g total protein 25-30 mL/kg 8416-3238 total fluid mLs NUTRITION DIAGNOSIS: 1) Increased kcal and protein needs r/t wound healing as evidenced by pt w/ multiple advanced wounds, including Full thickness Sacral pressure wound w/ necrosis, necrotic L earlobe, and left heel unstageable wound, refer to WC eval. 2) Swallowing difficulty r/t respiratory status as evidenced by pt is vent dep via trach, GT dep, on tube feeds. CURRENT TF:VITAL AF 1.2 @60ml/hr x24 hrs ENTERAL NUTRITION RECOMMENDATIONS: VITAL AF 1.2 @60ml/hr x24 hrs to provide 1440ml, 1728 kcal, 108g pro, 1168ml free H2O - Maintain current TF - HOB over 30 degrees - Increase water flushes for hypernatremia (DC D5 IVF) ADDITIONAL RECOMMENDATIONS: 1) PER SNF: pt is 143#, 65 inches tall 2) WOUND CARE: Add ALEENA BID via GT daily Add Vit C 250mmg BID Add ZnSO4 220mg QD x 10 days 3) Check lytes daily, replete as needed (low K and phos) 4) Weekly CALIBRATED bed scale wts 5) DC D5 IVF, increase water flushes instead for BG control
--- NOTE | 2019-05-23 16:30 | NUR ---
NURSE NOTES: Patient noted with large green bowel movement. Gisela-care done. Wound care dressing change done in AM with Dakin's solution, still dry and intact.
--- NOTE | 2019-05-23 17:03 | Surgery Progress Note ---
Surgery Progress Note Subjective Additional Comments afebrile, in ICU ill appearing. pressors weaned. leukocytosis 14k today. Objective Last 24 Hour Vital Signs Date Time Temp Pulse Resp B/P (MAP) Pulse Ox O2 Delivery O2 Flow Rate FiO2 05/23/19 16:00 30 05/23/19 15:20 78 16 30 05/23/19 13:15 80 16 30 05/23/19 12:00 74 05/23/19 12:00 Mechanical Ventilator 05/23/19 12:00 97.5 77 18 90/60 (70) 100 05/23/19 12:00 30 05/23/19 11:20 64 16 30 05/23/19 11:00 75 17 90/53 (65) 100 05/23/19 10:00 70 16 92/58 (69) 100 05/23/19 09:21 68 16 30 05/23/19 09:00 77 16 92/55 (67) 100 05/23/19 08:00 98.1 72 16 93/60 (71) 100 05/23/19 08:00 73 05/23/19 08:00 Mechanical Ventilator 05/23/19 08:00 30 05/23/19 07:00 80 19 30 05/23/19 07:00 74 17 90/61 (71) 100 05/23/19 06:00 73 18 96/61 (73) 100 05/23/19 05:00 73 16 99/66 (77) 100 05/23/19 04:36 72 16 30 05/23/19 04:00 81 05/23/19 04:00 Mechanical Ventilator 05/23/19 04:00 97.4 82 17 104/63 (77) 97 05/23/19 04:00 30 05/23/19 03:00 80 17 107/64 (78) 97 05/23/19 02:52 77 18 30 05/23/19 02:00 75 20 98/60 (73) 98 05/23/19 01:30 72 18 30 05/23/19 01:00 76 19 99/56 (70) 98 05/23/19 00:00 30 05/23/19 00:00 78 05/23/19 00:00 97.8 78 18 98/56 (70) 99 05/23/19 00:00 Mechanical Ventilator 05/22/19 23:24 83 21 30 05/22/19 23:00 85 20 101/62 (75) 100 05/22/19 22:00 80 20 99/52 (68) 100 05/22/19 21:15 104/63 05/22/19 21:00 80 20 104/63 (77) 97 05/22/19 20:45 35 05/22/19 20:45 77 21 35 05/22/19 20:00 Mechanical Ventilator 05/22/19 20:00 98.8 83 21 108/60 (76) 97 05/22/19 20:00 83 05/22/19 20:00 40 05/22/19 19:29 81 21 40 05/22/19 19:00 80 21 104/60 (75) 100 05/22/19 18:00 83 21 109/62 (78) 100 05/22/19 17:07 86 18 40 I&O Intake and Output 05/22/19 05/23/19 19:00 07:00 Intake Total 2540.000 ml 2091.5 ml Output Total 980 ml 1185 ml Balance 1560.000 ml 906.5 ml Intake Free Water 230 ml 50 ml IV Total 1590.000 ml 1321.5 ml Tube Feeding 720 ml 720 ml Output Urine Total 980 ml 1185 ml # Bowel Movements 2 Dressing: saturated Wound: other Drains: other Cardiovascular: RSR Respiratory: decreased breath sounds Abdomen: soft, present bowel sounds, non-distended Extremities: no cyanosis, other Laboratory Tests Test 05/23/19 04:00 05/23/19 07:11 White Blood Count 14.0 K/UL (4.8-10.8) H Red Blood Count 3.08 M/UL (4.20-5.40) L Hemoglobin 8.1 G/DL (12.0-16.0) L Hematocrit 26.0 % (37.0-47.0) L Mean Corpuscular Volume 85 FL (80-99) Mean Corpuscular Hemoglobin 26.4 PG (27.0-31.0) L Mean Corpuscular Hemoglobin Concent 31.2 G/DL (32.0-36.0) L Red Cell Distribution Width 17.6 % (11.6-14.8) H Platelet Count 343 K/UL (150-450) Mean Platelet Volume 5.5 FL (6.5-10.1) L Neutrophils (%) (Auto) % (45.0-75.0) Lymphocytes (%) (Auto) % (20.0-45.0) Monocytes (%) (Auto) % (1.0-10.0) Eosinophils (%) (Auto) % (0.0-3.0) Basophils (%) (Auto) % (0.0-2.0) Sodium Level 148 MMOL/L (136-145) H Potassium Level 3.3 MMOL/L (3.5-5.1) L Chloride Level 111 MMOL/L (98-107) H Carbon Dioxide Level 26 MMOL/L (21-32) Anion Gap 11 mmol/L (5-15) Blood Urea Nitrogen 11 mg/dL (7-18) Creatinine 0.3 MG/DL (0.55-1.30) L Estimat Glomerular Filtration Rate > 60 mL/min (>60) Glucose Level 234 MG/DL (74-106) #H Calcium Level 10.1 MG/DL (8.5-10.1) Phosphorus Level 1.9 MG/DL (2.5-4.9) L Magnesium Level 2.0 MG/DL (1.8-2.4) Total Bilirubin 0.2 MG/DL (0.2-1.0) Aspartate Amino Transf (AST/SGOT) 41 U/L (15-37) H Alanine Aminotransferase (ALT/SGPT) 76 U/L (12-78) Alkaline Phosphatase 146 U/L (46-116) H Total Protein 6.1 G/DL (6.4-8.2) L Albumin 1.8 G/DL (3.4-5.0) L Globulin 4.3 g/dL Albumin/Globulin Ratio 0.4 (1.0-2.7) L Arterial Blood pH 7.481 (7.350-7.450) Arterial Blood Partial Pressure CO2 29.9 mmHg (35.0-45.0) L Arterial Blood Partial Pressure O2 127.8 mmHg (75.0-100.0) H Arterial Blood HCO3 21.8 mmol/L (22.0-26.0) L Arterial Blood Oxygen Saturation 98.5 % (95-100) Arterial Blood Base Excess -1.2 (-2-2) Tristan Test Positive Plan Problems: (1) Septic shock Assessment & Plan: fever, leukocytosis, tachycardia ill appearing in ICU currently on IV Abx as per ID ongoing work up will follow with recs trends labs (2) Multiple organ failure (3) MDRO (multiple drug resistant organisms) resistance (4) Severe anemia (5) Feeding by G-tube (6) Chronic respiratory failure (7) Hypercalcemia (8) Urinary tract infection (9) Chronic anoxic encephalopathy (10) Decubitus skin ulcer Assessment & Plan: Pt presented on admission with multiple pressure injuries: L earlobe grossly malodorous and necrotic with partial loss of earlobe.Ear canal and posterior to earlobe noted to be purple/red.(L)6cm x (W)1.5cm.Smal amt brown exudate noted. Dry eschar noted to R earlobe (L)1cm. Full thickness Sacral pressure with undermining.100% soft necrosis noted to base of wound and undermined borders. Additional soft necrosis noted to edges and periwound. Wound is malodorous. Small amt black exudate noted.(L)(L)7.5cm x (W)9.7cm. Unstageable pressure injury L heel .Base of wound fluctuant and purple in centre with surrounding dry eschar (L)3.4cm x (W)3.2cm.Non-blanchable erythema periwound. R heel dry and blanchable. Skin Assessed under collar of trach and no areas of concerns noted. Tx.Plan: Cleanse L earlobe with Dakin's 0.25% nataly. Apply Dakin's 0.25% moist [id number] and cover with Optifoam drsg Twice Daily and PRN. Cleanse Sacral area with Dakin's 0.25% Nataly.Loosely pack wound with Dakin's moist Kerlix. Apply Triad Periwound. Cover with Optifoam drsg. Twice Daily and prn. Apply Betadine to L heel. Cover with Optifoam drsg. Change every 3 days and prn. Reposition at least every 2hours or as tolerated. Off-load heels with pillow. if improves and stable will need debridement at some point either inpatient or outpatient (11) History of sudden cardiac arrest (12) Sepsis (13) ATN (acute tubular necrosis) (14) Acute and chronic respiratory failure Levon Nunes May 23, 2019 17:03
--- NOTE | 2019-05-23 18:00 | NUR ---
NURSE NOTES: Patient turned and repositioned. Oral care provided.
--- NOTE | 2019-05-23 19:21 | NUR ---
HAND-OFF: Report given to Brennan Nolasco RN.
--- NOTE | 2019-05-23 19:30 | Internal Med Progress Note ---
Subjective Date of Service: May 23, 2019 Physician Name SweeneyChase olivas Attending Physician Mainor Newsome MD Current Medications Medications (Trade) Dose Ordered Sig/Lavon Route PRN Reason Start Time Stop Time Status Last Admin Dose Admin Acetaminophen (Tylenol) 650 mg Q4H PRN ORAL FEVER (temp> 100.5F) 05/19/19 15:30 06/18/19 15:29 Albuterol/ Ipratropium (Albuterol/ Ipratropium) 3 ml Q4H PRN HHN Shortness of Breath 05/19/19 15:30 05/24/19 15:29 Calcitonin V[place] (Miacalcin) 1 sprays DAILY NASAL 05/23/19 16:00 06/22/19 15:59 05/23/19 17:09 Chlorhexidine Gluconate (Nkechi-Hex 2%) 1 applic DAILY@2000 TOPIC 05/21/19 20:00 06/20/19 19:59 05/22/19 19:34 Dextrose 1,000 ml @ 30 mls/hr Q24H IV 05/23/19 15:30 06/22/19 15:29 05/23/19 16:02 Dextrose (Dextrose 50%) 25 ml Q30M PRN IV Hypoglycemia 05/23/19 07:30 06/22/19 07:29 Dextrose (Dextrose 50%) 50 ml Q30M PRN IV Hypoglycemia 05/23/19 07:30 06/22/19 07:29 Dopamine HCl/ Dextrose 250 ml @ 0 mls/hr Q24H IV 05/19/19 21:15 06/18/19 21:14 05/20/19 18:18 Heparin Sodium (Porcine) (Heparin 5000 units/ml) 5,000 units EVERY 12 HOURS SUBQ 05/19/19 21:00 06/18/19 20:59 05/22/19 20:57 Insulin Aspart (NovoLOG) Q4HR SUBQ 05/21/19 21:00 06/20/19 20:59 05/23/19 17:10 Insulin Aspart (NovoLOG) 6 units EVERY 4 HOURS SUBQ 05/23/19 09:00 06/22/19 08:59 05/23/19 17:11 Insulin Detemir (Levemir) 24 units Q12HR SUBQ 05/22/19 09:00 06/20/19 20:59 05/23/19 08:44 Lorazepam (Ativan 2mg/ml 1ml) 2 mg Q2H PRN IV For Anxiety 05/19/19 15:30 05/26/19 15:29 Morphine Sulfate (Morphine Sulfate) 4 mg Q4H PRN IVP Severe Pain (Pain Scale 7-10) 05/19/19 15:30 05/26/19 15:29 Piperacillin Sod/ Tazobactam Sod 3.375 gm/Sodium Chloride 110 ml @ 27.5 mls/hr EVERY 8 HOURS IVPB 05/20/19 14:00 05/25/19 13:59 05/23/19 14:12 Sodium Hypochlorite (Dakin's Quarter Strength) 1 applic DAILY TOPIC 05/21/19 18:00 06/20/19 17:59 05/23/19 08:46 Vancomycin HCl (Vanco rx to dose) 1 ea DAILY PRN MISC Per rx protocol 05/19/19 17:30 06/18/19 17:29 Vancomycin HCl 1 gm/Dextrose 275 ml @ 183.708 mls/hr Q12H IVPB 05/21/19 02:00 05/26/19 01:59 05/23/19 14:12 Allergies: Coded Allergies: DIPHENHYDRAMINE (Verified Allergy, Unknown, 02/24/19) FLUPHENAZINE (Verified Allergy, Unknown, 02/24/19) ROS Limited/Unobtainable: Yes Subjective 69 YO M admitted with respiratory failure and pneumonia. Now gram neg sepsis. Intubated. Cover for Int Isael-Dr Newsome. ICU Objective Last Vital Signs Date Time Temp Pulse Resp B/P (MAP) Pulse Ox O2 Delivery O2 Flow Rate FiO2 05/23/19 19:25 83 18 30 30 05/23/19 19:00 99/57 (71) 100 05/23/19 16:00 Mechanical Ventilator 05/23/19 16:00 97.5 05/20/19 00:00 70.0 Laboratory Tests Test 05/23/19 04:00 05/23/19 07:11 White Blood Count 14.0 K/UL (4.8-10.8) H Red Blood Count 3.08 M/UL (4.20-5.40) L Hemoglobin 8.1 G/DL (12.0-16.0) L Hematocrit 26.0 % (37.0-47.0) L Mean Corpuscular Volume 85 FL (80-99) Mean Corpuscular Hemoglobin 26.4 PG (27.0-31.0) L Mean Corpuscular Hemoglobin Concent 31.2 G/DL (32.0-36.0) L Red Cell Distribution Width 17.6 % (11.6-14.8) H Platelet Count 343 K/UL (150-450) Mean Platelet Volume 5.5 FL (6.5-10.1) L Neutrophils (%) (Auto) % (45.0-75.0) Lymphocytes (%) (Auto) % (20.0-45.0) Monocytes (%) (Auto) % (1.0-10.0) Eosinophils (%) (Auto) % (0.0-3.0) Basophils (%) (Auto) % (0.0-2.0) Sodium Level 148 MMOL/L (136-145) H Potassium Level 3.3 MMOL/L (3.5-5.1) L Chloride Level 111 MMOL/L (98-107) H Carbon Dioxide Level 26 MMOL/L (21-32) Anion Gap 11 mmol/L (5-15) Blood Urea Nitrogen 11 mg/dL (7-18) Creatinine 0.3 MG/DL (0.55-1.30) L Estimat Glomerular Filtration Rate > 60 mL/min (>60) Glucose Level 234 MG/DL (74-106) #H Calcium Level 10.1 MG/DL (8.5-10.1) Phosphorus Level 1.9 MG/DL (2.5-4.9) L Magnesium Level 2.0 MG/DL (1.8-2.4) Total Bilirubin 0.2 MG/DL (0.2-1.0) Aspartate Amino Transf (AST/SGOT) 41 U/L (15-37) H Alanine Aminotransferase (ALT/SGPT) 76 U/L (12-78) Alkaline Phosphatase 146 U/L (46-116) H Total Protein 6.1 G/DL (6.4-8.2) L Albumin 1.8 G/DL (3.4-5.0) L Globulin 4.3 g/dL Albumin/Globulin Ratio 0.4 (1.0-2.7) L Arterial Blood pH 7.481 (7.350-7.450) Arterial Blood Partial Pressure CO2 29.9 mmHg (35.0-45.0) L Arterial Blood Partial Pressure O2 127.8 mmHg (75.0-100.0) H Arterial Blood HCO3 21.8 mmol/L (22.0-26.0) L Arterial Blood Oxygen Saturation 98.5 % (95-100) Arterial Blood Base Excess -1.2 (-2-2) Tristan Test Positive Intake and Output 05/22/19 05/23/19 19:00 07:00 Intake Total 2540.000 ml 2091.5 ml Output Total 980 ml 1185 ml Balance 1560.000 ml 906.5 ml Intake Free Water 230 ml 50 ml IV Total 1590.000 ml 1321.5 ml Tube Feeding 720 ml 720 ml Output Urine Total 980 ml 1185 ml # Bowel Movements 2 Objective PHYSICAL EXAMINATION: GENERAL: The patient is awake, responsive to painful stimuli with open her eyes. HEAD AND NECK: Pupils are reactive to light, anicteric. Neck was supple. Tracheostomy site is intact. LUNGS: Mech Vent; Good air entry. No wheezing or rales. Mechanical breath sounds. HEART: Reveals S1, S2. Regular rhythm. No gallops. ABDOMEN: Soft, nondistended, and nontender. Positive bowel sounds. Status post, the patient has PEG, site is intact. RECTAL: Refused and deferred. GENITOURINARY: Refused and deferred. BACK: Has a sacral decubitus ulcer, stage IV with necrotic tissue, foul smell. EXTREMITIES: No cyanosis, clubbing, or edema. Contracted lower extremity was noted as well as upper extremity. NEUROLOGIC: Limited secondary to the patient's status, but the patient is unable to move the extremities. Assessment/Plan Assessment/Plan ASSESSMENT: 1. Sepsis secondary to pneumonia as well as infected decubitus ulcer. 2. Hypotension, most likely secondary to the sepsis and septic shock. 3. Hypertension. 4. Dyslipidemia. 5. Acute on chronic respiratory failure. 6. History of cardiac arrest with anoxic brain injury. 7. COPD. 8. Status post trach and PEG. 9. Infected sacral decubitus ulcer, stage IV, present on admission. PLAN: 1. Admit the patient to ICU. 2. At this time, code status is Full Code. 3. sepsis=Proteus Mirabilis. Broad-spectrum antibiotics with vancomycin as well as Zosyn. See ID recs 4. Pneumonia/respiratory failure. Discussed case with Dr. Corrigan from Pulmonary Critical Care 5. D/W Dr. Chadwick Keith from Infectious Disease and Dr. Niall Levy from Cardiology. Chase Sweeney MD May 23, 2019 19:30
[2019-05-23] MEDS: Dyna-Hex 2% Top Sol 2oz TOPIC SCH (19:38)
--- NOTE | 2019-05-23 19:45 | NUR ---
NURSE NOTES: PATIENT OPEN EYES,DID NOT FOLLOWED COMMANDS, ON TRACH TO VENT, AC16/TV600/FIO2 30%/PEEP 5, O2 SATURATION 100% NOTED AT THIS TIME, ABDOMEN SOFT, NO BOWEL MOVEMENT STATUS, G TUBE INTACT AND PATENT, ONGOING VITAL AF 1.2 AT 60ML/HR, RESIDUE 35ML NOTED, KEPT HOB OVER 30 DEGREE, F/C INTACT AND PATENT, YELLOW URINE OUTED, TLC TO RIGHT FEMORAL INTACT AND PATENT, ONGOING D5W AT 30ML/HR VIA TLC, PERIPHERAL LINE TO RIGHT WRIST AREA INTACT AND PATENT, ON P200 BED, MADE LOWER BED POSITION, PROVIDED CALL LIGHT WITHIN REACH, ON BED ALARM, WILL CONTINUE TO MONITOR.
[2019-05-23] MEDS: DOPamine 400mg/250ml 250 ML IV SCH (21:15)
--- NOTE | 2019-05-23 22:00 | NUR ---
NURSE NOTES: REPOSITIONED, OBTUNDED, NO PAIN NOTED, WILL CONTINUE TO MONITOR.
[2019-05-24] VITALS (13 sets, daily range): BP systolic 93–129; BP diastolic 59–79
--- NOTE | 2019-05-24 | NUR ---
NURSE NOTES: VSS STABLED, NO ACUTE DISTRESS NOTED, WILL CONTINUE PLAN OF CARE.
[2019-05-24] MEDS: NovoLOG Insulin Flexpen SUBQ SCH ×12 (00:32→20:23)
[2019-05-24] MEDS: Vancomycin 1gm/D5W 275ml IVPB SCH ×4 (01:33→17:45)
--- NOTE | 2019-05-24 02:00 | NUR ---
NURSE NOTES: ORAL CARE WAS DONE, NO DISTRESS NOTED AT THIS TIME.
--- NOTE | 2019-05-24 04:00 | NUR ---
NURSE NOTES: MORNING CARE WAS DONE.
[2019-05-24] MEDS: Piperacillin/Tazobactam 3.375 GM in NS 110 ML IVPB SCH (05:31)
[2019-05-24 05:38] LABS: BASOPHILS % (AUTO) 0.2 % (0.0-2.0); EOSINOPHILS % (AUTO) 1.5 % (0.0-3.0); HEMATOCRIT 26.1 % (37.0-47.0); HEMOGLOBIN 8.1 G/DL (12.0-16.0); LYMPHOCYTES % (AUTO) 11.8 % (20.0-45.0); MEAN CORPUSCULAR VOLUME 83 FL (80-99); MONOCYTES % (AUTO) 1.7 % (1.0-10.0); NEUTROPHILS % (AUTO) 84.9 % (45.0-75.0); PLATELET COUNT 388 K/UL (150-450); RED BLOOD COUNT 3.13 M/UL (4.20-5.40); RED CELL DISTRIBUTION WIDTH 17.6 % (11.6-14.8); WHITE BLOOD COUNT 15.8 K/UL (4.8-10.8)
[2019-05-24 05:56] LABS: ANION GAP 8 mmol/L (5-15); BLOOD UREA NITROGEN 12 mg/dL (7-18); CALCIUM 10.6 MG/DL (8.5-10.1); CARBON DIOXIDE 28 MMOL/L (21-32); CHLORIDE 115 MMOL/L (98-107); CREATININE 0.3 MG/DL (0.55-1.30); POTASSIUM 3.7 MMOL/L (3.5-5.1); SODIUM 151 MMOL/L (136-145)
--- NOTE | 2019-05-24 06:10 | NUR ---
NURSE NOTES: NO ACUTE DISTRESS NOTED AT THIS SHIFT.
--- NOTE | 2019-05-24 07:00 | NUR ---
RESPIRATORY NOTES: Received Patient on ACVC RR 16, VT 600, 30% FIO2, PEEP +5. Patient is trach dependent with a cuffed Portex 7 tracheostomy, secured with trach ties. Bilateral rhonchi heard throughout both lung lawrence. Suction Q2 and PRN moderate amount of white clear secretions. Alarms are on and audible. Will continue to monitor patient throughout the day.
--- NOTE | 2019-05-24 07:00 | General Progress Note ---
Assessment/Plan Problem List: (1) Diabetes mellitus out of control ICD Codes: E11.65 - Type 2 diabetes mellitus with hyperglycemia SNOMED: 68400710, 998720871 (2) Sepsis ICD Codes: A41.9 - Sepsis, unspecified organism SNOMED: 01641765 (3) Urinary tract infection ICD Codes: N39.0 - Urinary tract infection, site not specified SNOMED: 38123050 (4) Chronic respiratory failure ICD Codes: J96.10 - Chronic respiratory failure, unspecified whether with hypoxia or hypercapnia SNOMED: 74275796 Assessment/Plan: continue Levemir 24 units bid continue Novolog 6 units every 4 hours continue NISS every 4 hours resistant scale Subjective ROS Limited/Unobtainable: Yes Allergies: Coded Allergies: DIPHENHYDRAMINE (Verified Allergy, Unknown, 02/24/19) FLUPHENAZINE (Verified Allergy, Unknown, 02/24/19) Subjective events noted on trach - vent glucose values improved Item Value Date Time Bedside Blood Glucose 168 mg/dl H 05/24/19 0442 Bedside Blood Glucose 155 mg/dl H 05/24/19 0033 Bedside Blood Glucose 174 mg/dl H 05/23/19 2043 Bedside Blood Glucose 216 mg/dl H 05/23/19 1711 Bedside Blood Glucose 182 mg/dl H 05/23/19 1254 Bedside Blood Glucose 229 mg/dl H 05/23/19 0846 Bedside Blood Glucose 227 mg/dl H 05/23/19 0434 Bedside Blood Glucose 256 mg/dl H 05/23/19 0046 Objective Last 24 Hour Vital Signs Date Time Temp Pulse Resp B/P (MAP) Pulse Ox O2 Delivery O2 Flow Rate FiO2 05/24/19 06:51 91 16 30 05/24/19 06:00 83 16 93/59 (70) 100 05/24/19 05:07 73 16 30 30 05/24/19 05:00 73 16 100/63 (75) 100 05/24/19 04:00 97.4 85 16 106/65 (79) 100 05/24/19 04:00 30 05/24/19 04:00 Mechanical Ventilator 05/24/19 03:36 82 05/24/19 03:10 88 16 30 30 05/24/19 03:00 87 17 103/64 (77) 100 05/24/19 02:00 90 16 102/64 (77) 100 05/24/19 01:15 86 17 30 30 05/24/19 01:00 87 17 129/79 (96) 99 05/24/19 00:00 Mechanical Ventilator 05/24/19 00:00 30 05/24/19 00:00 97.8 89 18 112/71 (85) 99 05/23/19 23:16 96 18 30 30 05/23/19 23:02 96 05/23/19 23:00 98 20 100/62 (75) 96 05/23/19 22:00 91 17 100/56 (71) 100 05/23/19 21:15 98/58 05/23/19 21:00 88 17 98/58 (71) 100 05/23/19 20:50 88 16 30 30 05/23/19 20:00 Mechanical Ventilator 05/23/19 20:00 30 05/23/19 20:00 98.5 89 18 98/62 (74) 98 05/23/19 19:49 87 05/23/19 19:25 83 18 30 30 05/23/19 19:00 88 18 99/57 (71) 100 05/23/19 18:00 92 20 102/62 (75) 94 05/23/19 17:25 90 16 30 05/23/19 17:00 90 16 106/58 (74) 96 05/23/19 16:00 79 05/23/19 16:00 30 05/23/19 16:00 Mechanical Ventilator 05/23/19 16:00 97.5 79 17 90/56 (67) 99 05/23/19 15:20 78 16 30 05/23/19 15:00 80 16 99/54 (69) 98 05/23/19 14:00 79 19 96/54 (68) 98 05/23/19 13:15 80 16 30 05/23/19 13:00 69 17 92/60 (71) 100 05/23/19 12:00 74 05/23/19 12:00 Mechanical Ventilator 05/23/19 12:00 97.5 77 18 90/60 (70) 100 05/23/19 12:00 30 05/23/19 11:20 64 16 30 05/23/19 11:00 75 17 90/53 (65) 100 05/23/19 10:00 70 16 92/58 (69) 100 05/23/19 09:21 68 16 30 05/23/19 09:00 77 16 92/55 (67) 100 05/23/19 08:00 98.1 72 16 93/60 (71) 100 05/23/19 08:00 73 05/23/19 08:00 Mechanical Ventilator 05/23/19 08:00 30 05/23/19 07:00 80 19 30 05/23/19 07:00 74 17 90/61 (71) 100 Intake and Output 05/23/19 05/24/19 18:59 06:59 Intake Total 2286.040 ml 1579.96 ml Output Total 1400 ml 1900 ml Balance 886.040 ml -320.04 ml Intake Free Water 100 ml 50 ml IV Total 1466.040 ml 809.96 ml Tube Feeding 720 ml 720 ml Output Urine Total 1400 ml 1900 ml # Bowel Movements 2 2 Laboratory Tests 05/23/19 07:11: Arterial Blood pH 7.481H, Arterial Blood Partial Pressure CO2 29.9L, Arterial Blood Partial Pressure O2 127.8H, Arterial Blood HCO3 21.8L, Arterial Blood Oxygen Saturation 98.5, Arterial Blood Base Excess -1.2, Tristan Test Positive 05/24/19 04:35: White Blood Count 15.8H, Red Blood Count 3.13L, Hemoglobin 8.1L, Hematocrit 26.1L, Mean Corpuscular Volume 83, Mean Corpuscular Hemoglobin 25.8L, Mean Corpuscular Hemoglobin Concent 31.0L, Red Cell Distribution Width 17.6H, Platelet Count 388, Mean Platelet Volume 6.0L, Neutrophils (%) (Auto) 84.9H, Lymphocytes (%) (Auto) 11.8L, Monocytes (%) (Auto) 1.7, Eosinophils (%) (Auto) 1.5, Basophils (%) (Auto) 0.2, Sodium Level 151H, Potassium Level 3.7, Chloride Level 115H, Carbon Dioxide Level 28, Anion Gap 8, Blood Urea Nitrogen 12, Creatinine 0.3L, Estimat Glomerular Filtration Rate > 60, Glucose Level 172H, Calcium Level 10.6H Height (Feet): 5 Height (Inches): 3.00 Weight (Pounds): 155 General Appearance: other - on ventilator Neck: other - tracheostomy Cardiovascular: tachycardia Respiratory/Chest: decreased breath sounds Abdomen: other - PEG Pelvis: normal external exam Objective Current Medications Medications (Trade) Dose Ordered Sig/Lavon Route PRN Reason Start Time Stop Time Status Last Admin Dose Admin Acetaminophen (Tylenol) 650 mg Q4H PRN ORAL FEVER (temp> 100.5F) 05/19/19 15:30 06/18/19 15:29 Albuterol/ Ipratropium (Albuterol/ Ipratropium) 3 ml Q4H PRN HHN Shortness of Breath 05/19/19 15:30 05/24/19 15:29 Calcitonin Hawley (Miacalcin) 1 sprays DAILY NASAL 05/23/19 16:00 06/22/19 15:59 05/23/19 17:09 Chlorhexidine Gluconate (Nkechi-Hex 2%) 1 applic DAILY@2000 TOPIC 05/21/19 20:00 06/20/19 19:59 05/23/19 19:38 Dextrose 1,000 ml @ 30 mls/hr Q24H IV 05/23/19 15:30 06/22/19 15:29 05/23/19 16:02 Dextrose (Dextrose 50%) 25 ml Q30M PRN IV Hypoglycemia 05/23/19 07:30 06/22/19 07:29 Dextrose (Dextrose 50%) 50 ml Q30M PRN IV Hypoglycemia 05/23/19 07:30 06/22/19 07:29 Dopamine HCl/ Dextrose 250 ml @ 0 mls/hr Q24H IV 05/19/19 21:15 06/18/19 21:14 05/20/19 18:18 Heparin Sodium (Porcine) (Heparin 5000 units/ml) 5,000 units EVERY 12 HOURS SUBQ 05/19/19 21:00 06/18/19 20:59 05/23/19 20:41 Insulin Aspart (NovoLOG) Q4HR SUBQ 05/21/19 21:00 06/20/19 20:59 05/24/19 04:41 Insulin Aspart (NovoLOG) 6 units EVERY 4 HOURS SUBQ 05/23/19 09:00 06/22/19 08:59 05/24/19 04:42 Insulin Detemir (Levemir) 24 units Q12HR SUBQ 05/22/19 09:00 06/20/19 20:59 05/23/19 20:41 Lorazepam (Ativan 2mg/ml 1ml) 2 mg Q2H PRN IV For Anxiety 05/19/19 15:30 05/26/19 15:29 Morphine Sulfate (Morphine Sulfate) 4 mg Q4H PRN IVP Severe Pain (Pain Scale 7-10) 05/19/19 15:30 05/26/19 15:29 Piperacillin Sod/ Tazobactam Sod 3.375 gm/Sodium Chloride 110 ml @ 27.5 mls/hr EVERY 8 HOURS IVPB 05/20/19 14:00 05/25/19 13:59 05/24/19 05:31 Sodium Hypochlorite (Dakin's Quarter Strength) 1 applic DAILY TOPIC 05/21/19 18:00 06/20/19 17:59 05/23/19 08:46 Vancomycin HCl (Vanco rx to dose) 1 ea DAILY PRN MISC Per rx protocol 05/19/19 17:30 06/18/19 17:29 Vancomycin HCl 1 gm/Dextrose 275 ml @ 183.708 mls/hr Q12H IVPB 05/21/19 02:00 05/26/19 01:59 05/24/19 01:33 Vj Urrutia MD May 24, 2019 07:00
--- NOTE | 2019-05-24 07:10 | NUR ---
HAND-OFF: Report given to DB HOWARD.
--- NOTE | 2019-05-24 07:11 | NUR ---
NURSE NOTES: Received patient in bed. Vent dependent. On continuous GTF. Cormier cath inplace. Right Femoral catheter inplace. With IVF of D5W running at 30ml/hour. Contact isolation observed. Will continue plan of care.
--- NOTE | 2019-05-24 09:10 | NUR ---
NURSE NOTES:WOUND CARE FOLLOW-UP NOTES:Pt L earlobe is necrotic with loss of 1/3 of earlobe. Wound is malodorous. Base of L ear canal also noted to have maroon with black tinged discoloration. (L)6cm..Small stable dry eschar noted to R earlobe(L)1cm. Full thickness sacral pressure injury that has 100% soft necrosis.periwound is black and indurated. Edges detached with areas of slough. Wound is malodorous .Periwound indurated with darker skin tone noted.(L)8cm x (W)9.7cm. DTPI L heel .Base of wound is purple and red tinged with surrounding dry eschar. edges are attached.(3.3cm x (W)3.2cm.Periwound is fluctuant but pale in colour. R heel boggy but blanchable. Skin Assessed under trach collar and no areas of concerns noted. Tx.Plan:Cleanse Sacral wound with Dakin's 0.25%. Loosely pack with Dakin's moist Kerlix .Apply Moisture Barrier Paste to edges and periwound. Cover with Optifoam drsg TWICE Daily and prn. Swab L earlobe with Betadine. Cover with Optifoam drsg. Change Daily and prn. Apply Cavilon Skin Barrier to Both heels. Cover each heel with Optifoam drsg. Change every 7 days and prn. APM/SYLVIA mattress overlay. Reposition at least every 2hours or as tolerated. Off-load heels with Pillow. Keep Foam Ear molds in place to relieve pressure off ears. .
[2019-05-24] MEDS: Levemir Flexpen SUBQ SCH ×2 (09:35→20:24)
[2019-05-24] MEDS: Heparin 5000 units/ml inj SUBQ SCH ×2 (09:35→20:24)
--- NOTE | 2019-05-24 09:52 | NUR ---
RESPIRATORY NOTES: Dr. Corrigan took patient off the ventilator at 0952. Patient began to desaturate. After about a minute I got the order to place her back on the ventilator. Bagged patient until saturations came back up and placed back onto the ventilator at 0959.
--- NOTE | 2019-05-24 09:56 | NUR ---
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 PNA VS: BP 93/59, P 91, T 98.0, RR 19, SpO2 100 on VENT AC 16, TV 600, PEEP 5.0, FiO2 30 WBC 15.8, RBC 3.13, H&H 8.1/26.1, Na 151, CR 0.3, Ca 10.6 IS:NOVOLOG SUBQ HEPARIN SUBQ ZOSYN 110ml IVPB VANCOMYCIN 275ml IVPB TRANSFER TO MED/SURG 05/24 ICU STATUS
[2019-05-24] MEDS ORDERED: Ertapenem 1gm ivpb (q24h) IV SCH ×2 (10:00)
--- NOTE | 2019-05-24 10:05 | NUR ---
Social Service Note ICU received a faxed court order from the Public Guardian's Office indicating patient is DNR/DNI/Comfort measures only/Hospice Care. The order did not indicate patient could be terminally extubated from vent support. GATO spoke with [place] public guardian [phone] who discussed with his coiled tubing supervisor that at this time patient cannot be withdrawn from vent support and would require clarification from the court. Patient will remain DNR/DNI. GATO informed Dr. Corrigan only code status would change. GATO will follow up with conservator.
[2019-05-24] MEDS: Dakin's 0.125% Soln (Quarter Strength) 16oz TOPIC SCH ×2 (10:16→20:25)
--- NOTE | 2019-05-24 10:19 | Pulmonolgy Critical Care Note ---
Critical Care - Asmt/Plan Problems: (1) Acute and chronic respiratory failure (2) Septic shock (3) Multiple organ failure (4) Feeding by G-tube (5) Chronic anoxic encephalopathy (6) Decubitus skin ulcer (7) History of sudden cardiac arrest (8) Sepsis (9) ATN (acute tubular necrosis) Respiratory: monitor respiratory rate, adjust FIO2 Cardiac: continue to monitor HR/BP Renal: F/U I&O, check electrolytes Gastrointestinal: continue feedings/current rate, hold feedings Endocrine: monitor blood sugar, check TSH Hematologic: monitor H/H, transfuse if hgb<8.5 Neurologic: PRN Morphine, keep patient comfortable Notes Reviewed: 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 room busser, renal Discussed with: nurses, consultants, pillowcase foldermanager of finance - Objective Last 24 Hour Vital Signs Date Time Temp Pulse Resp B/P (MAP) Pulse Ox O2 Delivery O2 Flow Rate FiO2 05/24/19 10:00 80 16 123/70 (87) 100 05/24/19 09:02 80 19 30 05/24/19 08:00 Mechanical Ventilator 05/24/19 08:00 98.0 82 17 100/66 (77) 100 05/24/19 08:00 30 05/24/19 07:47 74 05/24/19 07:00 83 16 98/65 (76) 100 05/24/19 06:51 91 16 30 05/24/19 06:00 83 16 93/59 (70) 100 05/24/19 05:07 73 16 30 30 05/24/19 05:00 73 16 100/63 (75) 100 05/24/19 04:00 97.4 85 16 106/65 (79) 100 05/24/19 04:00 30 05/24/19 04:00 Mechanical Ventilator 05/24/19 03:36 82 05/24/19 03:10 88 16 30 30 05/24/19 03:00 87 17 103/64 (77) 100 05/24/19 02:00 90 16 102/64 (77) 100 05/24/19 01:15 86 17 30 30 05/24/19 01:00 87 17 129/79 (96) 99 05/24/19 00:00 Mechanical Ventilator 05/24/19 00:00 30 05/24/19 00:00 97.8 89 18 112/71 (85) 99 05/23/19 23:16 96 18 30 30 05/23/19 23:02 96 05/23/19 23:00 98 20 100/62 (75) 96 05/23/19 22:00 91 17 100/56 (71) 100 05/23/19 21:15 98/58 05/23/19 21:00 88 17 98/58 (71) 100 05/23/19 20:50 88 16 30 30 05/23/19 20:00 Mechanical Ventilator 05/23/19 20:00 30 05/23/19 20:00 98.5 89 18 98/62 (74) 98 05/23/19 19:49 87 05/23/19 19:25 83 18 30 30 05/23/19 19:00 88 18 99/57 (71) 100 05/23/19 18:00 92 20 102/62 (75) 94 05/23/19 17:25 90 16 30 05/23/19 17:00 90 16 106/58 (74) 96 05/23/19 16:00 79 05/23/19 16:00 30 05/23/19 16:00 Mechanical Ventilator 05/23/19 16:00 97.5 79 17 90/56 (67) 99 05/23/19 15:20 78 16 30 05/23/19 15:00 80 16 99/54 (69) 98 05/23/19 14:00 79 19 96/54 (68) 98 05/23/19 13:15 80 16 30 05/23/19 13:00 69 17 92/60 (71) 100 05/23/19 12:00 74 05/23/19 12:00 Mechanical Ventilator 05/23/19 12:00 97.5 77 18 90/60 (70) 100 05/23/19 12:00 30 05/23/19 11:20 64 16 30 05/23/19 11:00 75 17 90/53 (65) 100 Status: obtunded Condition: critical HEENT: atraumatic Lungs: chest wall tender Heart: HR/BP stable Abdomen: soft, non-tender Extremities: no C/C/E, edema Accucheck: 175 Critical Care - Subjective Condition: critical EKG Rhythm: Sinus Rhythm FI02: 30 Vent Support Breath Rate: 16 Vent Support Mode: AC Vent Tidal Volume: 600 Sputum Amount: Moderate PEEP: 5.0 PIP: 28 Tube Feeding Amount: 60 I&O: Intake and Output 05/23/19 05/24/19 19:00 07:00 Intake Total 2261.040 ml 1559.96 ml Output Total 1490 ml 1900 ml Balance 771.040 ml -340.04 ml Intake Free Water 100 ml 50 ml IV Total 1441.040 ml 789.96 ml Tube Feeding 720 ml 720 ml Output Urine Total 1490 ml 1900 ml # Bowel Movements 2 2 Labs: Laboratory Tests Test 05/24/19 04:35 White Blood Count 15.8 K/UL (4.8-10.8) H Red Blood Count 3.13 M/UL (4.20-5.40) L Hemoglobin 8.1 G/DL (12.0-16.0) L Hematocrit 26.1 % (37.0-47.0) L Mean Corpuscular Volume 83 FL (80-99) Mean Corpuscular Hemoglobin 25.8 PG (27.0-31.0) L Mean Corpuscular Hemoglobin Concent 31.0 G/DL (32.0-36.0) L Red Cell Distribution Width 17.6 % (11.6-14.8) H Platelet Count 388 K/UL (150-450) Mean Platelet Volume 6.0 FL (6.5-10.1) L Neutrophils (%) (Auto) 84.9 % (45.0-75.0) H Lymphocytes (%) (Auto) 11.8 % (20.0-45.0) L Monocytes (%) (Auto) 1.7 % (1.0-10.0) Eosinophils (%) (Auto) 1.5 % (0.0-3.0) Basophils (%) (Auto) 0.2 % (0.0-2.0) Sodium Level 151 MMOL/L (136-145) H Potassium Level 3.7 MMOL/L (3.5-5.1) Chloride Level 115 MMOL/L (98-107) H Carbon Dioxide Level 28 MMOL/L (21-32) Anion Gap 8 mmol/L (5-15) Blood Urea Nitrogen 12 mg/dL (7-18) Creatinine 0.3 MG/DL (0.55-1.30) L Estimat Glomerular Filtration Rate > 60 mL/min (>60) Glucose Level 172 MG/DL (74-106) H Calcium Level 10.6 MG/DL (8.5-10.1) H Phosphorus Level Pending Magnesium Level Pending Total Bilirubin Pending Direct Bilirubin Pending Aspartate Amino Transf (AST/SGOT) Pending Alanine Aminotransferase (ALT/SGPT) Pending Alkaline Phosphatase Pending Total Protein Pending Albumin Pending Rula Corrigan MD May 24, 2019 10:19
[2019-05-24 10:26] LABS: ALANINE AMINOTRANSFERASE 80 U/L (12-78); ALBUMIN 1.7 G/DL (3.4-5.0); ALKALINE PHOSPHATASE 151 U/L (46-116); ASPARTATE AMINO TRANSFERASE 43 U/L (15-37); BILIRUBIN,DIRECT < 0.1 MG/DL (0.0-0.3); BILIRUBIN,TOTAL 0.2 MG/DL (0.2-1.0)
[2019-05-24 10:28] LABS: PHOSPHORUS 2.3 MG/DL (2.5-4.9)
--- NOTE | 2019-05-24 11:05 | NUR ---
TRANSFER TO FLOOR: Patient transferred to SDU room 234, per Dr. Corrigan. Report given to DB Sherwood. No Belongings upon transfer. Remains vent dependent.
--- NOTE | 2019-05-24 11:05 | NUR ---
NURSE NOTES: Received patient from ICU placed in room 234, per Dr Corrigan's order. Received report from DB Saldivar. Patient is obtunded, opens eyes but is nonverbal. Patient trach-vent dependent with settings AC 16, TV 600, FiO2 30% and PEEP 5. No acute respiratory distress noted at this time. Placed on rn cardiac, shows sinus rhythm. GT intact and patent with infusing feeding at prescribed rate. Cormier catheter intact and draining well to gravity. Right wrist IV 20g intact and patent. Right femoral TLC intact and patent. Follow up with Dr Corrigan for clarification of orders. Awaiting for call back. Bed placed in lowest position, locked and alarmed, side rails up x3, and call light left within reach. Will continue to monitor patient.
--- NOTE | 2019-05-24 11:18 | Cardiac Electrophysiology PN ---
Assessment/Plan Assessment/Plan 1. Septic and hypovolemic shock with white count of 20,000 with multiple decubitus ulcers. The patient is getting d5W at 75cc/hr and IV antibiotic. Off pressors. Echo EF 65% 2. Ventilator-dependent respiratory failure, status post tracheostomy. 3. Dysphagia, status post PEG placement. 4. Encephalopathy. 5. Chronic decubitus ulcers. Sacral debridement after out of ICU per Dr Arreola 6. Dehydration and hypernatremia. JOLYNN RN and Dr. Arreola Subjective Subjective Was just transferred out of ICU. In SR. Made DNR and transferred to [facility] Objective Last 24 Hour Vital Signs Date Time Temp Pulse Resp B/P (MAP) Pulse Ox O2 Delivery O2 Flow Rate FiO2 05/24/19 11:14 73 16 30 05/24/19 10:00 80 16 123/70 (87) 100 05/24/19 09:02 80 19 30 05/24/19 08:00 Mechanical Ventilator 05/24/19 08:00 98.0 82 17 100/66 (77) 100 05/24/19 08:00 30 05/24/19 07:47 74 05/24/19 07:00 83 16 98/65 (76) 100 05/24/19 06:51 91 16 30 05/24/19 06:00 83 16 93/59 (70) 100 05/24/19 05:07 73 16 30 30 05/24/19 05:00 73 16 100/63 (75) 100 05/24/19 04:00 97.4 85 16 106/65 (79) 100 05/24/19 04:00 30 05/24/19 04:00 Mechanical Ventilator 05/24/19 03:36 82 05/24/19 03:10 88 16 30 30 05/24/19 03:00 87 17 103/64 (77) 100 05/24/19 02:00 90 16 102/64 (77) 100 05/24/19 01:15 86 17 30 30 05/24/19 01:00 87 17 129/79 (96) 99 05/24/19 00:00 Mechanical Ventilator 05/24/19 00:00 30 05/24/19 00:00 97.8 89 18 112/71 (85) 99 05/23/19 23:16 96 18 30 30 05/23/19 23:02 96 05/23/19 23:00 98 20 100/62 (75) 96 05/23/19 22:00 91 17 100/56 (71) 100 05/23/19 21:15 98/58 05/23/19 21:00 88 17 98/58 (71) 100 05/23/19 20:50 88 16 30 30 05/23/19 20:00 Mechanical Ventilator 05/23/19 20:00 30 05/23/19 20:00 98.5 89 18 98/62 (74) 98 05/23/19 19:49 87 05/23/19 19:25 83 18 30 30 05/23/19 19:00 88 18 99/57 (71) 100 05/23/19 18:00 92 20 102/62 (75) 94 05/23/19 17:25 90 16 30 05/23/19 17:00 90 16 106/58 (74) 96 05/23/19 16:00 79 05/23/19 16:00 30 05/23/19 16:00 Mechanical Ventilator 05/23/19 16:00 97.5 79 17 90/56 (67) 99 05/23/19 15:20 78 16 30 05/23/19 15:00 80 16 99/54 (69) 98 05/23/19 14:00 79 19 96/54 (68) 98 05/23/19 13:15 80 16 30 05/23/19 13:00 69 17 92/60 (71) 100 05/23/19 12:00 74 05/23/19 12:00 Mechanical Ventilator 05/23/19 12:00 97.5 77 18 90/60 (70) 100 05/23/19 12:00 30 05/23/19 11:20 64 16 30 Intake and Output 05/23/19 05/24/19 19:00 07:00 Intake Total 2261.040 ml 1559.96 ml Output Total 1490 ml 1900 ml Balance 771.040 ml -340.04 ml Intake Free Water 100 ml 50 ml IV Total 1441.040 ml 789.96 ml Tube Feeding 720 ml 720 ml Output Urine Total 1490 ml 1900 ml # Bowel Movements 2 2 Laboratory Tests Test 05/24/19 04:35 White Blood Count 15.8 K/UL (4.8-10.8) H Red Blood Count 3.13 M/UL (4.20-5.40) L Hemoglobin 8.1 G/DL (12.0-16.0) L Hematocrit 26.1 % (37.0-47.0) L Mean Corpuscular Volume 83 FL (80-99) Mean Corpuscular Hemoglobin 25.8 PG (27.0-31.0) L Mean Corpuscular Hemoglobin Concent 31.0 G/DL (32.0-36.0) L Red Cell Distribution Width 17.6 % (11.6-14.8) H Platelet Count 388 K/UL (150-450) Mean Platelet Volume 6.0 FL (6.5-10.1) L Neutrophils (%) (Auto) 84.9 % (45.0-75.0) H Lymphocytes (%) (Auto) 11.8 % (20.0-45.0) L Monocytes (%) (Auto) 1.7 % (1.0-10.0) Eosinophils (%) (Auto) 1.5 % (0.0-3.0) Basophils (%) (Auto) 0.2 % (0.0-2.0) Sodium Level 151 MMOL/L (136-145) H Potassium Level 3.7 MMOL/L (3.5-5.1) Chloride Level 115 MMOL/L (98-107) H Carbon Dioxide Level 28 MMOL/L (21-32) Anion Gap 8 mmol/L (5-15) Blood Urea Nitrogen 12 mg/dL (7-18) Creatinine 0.3 MG/DL (0.55-1.30) L Estimat Glomerular Filtration Rate > 60 mL/min (>60) Glucose Level 172 MG/DL (74-106) H Calcium Level 10.6 MG/DL (8.5-10.1) H Phosphorus Level 2.3 MG/DL (2.5-4.9) L Magnesium Level 2.1 MG/DL (1.8-2.4) Total Bilirubin 0.2 MG/DL (0.2-1.0) Direct Bilirubin < 0.1 MG/DL (0.0-0.3) Aspartate Amino Transf (AST/SGOT) 43 U/L (15-37) H Alanine Aminotransferase (ALT/SGPT) 80 U/L (12-78) H Alkaline Phosphatase 151 U/L (46-116) H Total Protein 6.1 G/DL (6.4-8.2) L Albumin 1.7 G/DL (3.4-5.0) L Objective HEAD AND NECK: No JVD. Status post tracheostomy. LUNGS: Coarse rhonchi. CARDIOVASCULAR: Shows regular S1 and S2 with no gallop. ABDOMEN: Status post G-tube. EXTREMITIES/SKIN: She has ulcers and sacral decubitus. Niall Levy MD May 24, 2019 11:18
--- NOTE | 2019-05-24 11:35 | NUR ---
NURSE NOTES: Continue with DNR code status and previous medications per Dr Corrigan. Noted and carried out.
[2019-05-24] MEDS ORDERED: Ertapenem 1 GM in NS 55 ML IVPB SCH (12:00)
[2019-05-24] MEDS ORDERED: Morphine Sulfate 4mg/ml Inj (IV USE ONLY) IVP PRN (12:00)
--- NOTE | 2019-05-24 12:09 | Nephrology Progress Note ---
Assessment/Plan Problem List: (1) Hypercalcemia (2) Chronic anoxic encephalopathy (3) Acute and chronic respiratory failure (4) Severe anemia Assessment Electrolyte imbalance: High Na and Low K Severe Hypercalcemia Severe HypoAlbuminemia DM Others: Acute and chronic respiratory failure Septic shock Multiple organ failure Feeding by G-tube Chronic anoxic encephalopathy Decubitus skin ulcer History of sudden cardiac arrest ATN (acute tubular necrosis) and Oliguria Plan Plan; NOW DNI DNR comfort care previously: Aredia 90 mg on 05/21 Nasal calcitonin start today 05/23 D5W 75 cc / h K Phos IV monitor Lytes and Ca and Phos per orders discussed with RN Subjective ROS Limited/Unobtainable: Yes Objective Objective Last 24 Hour Vital Signs Date Time Temp Pulse Resp B/P (MAP) Pulse Ox O2 Delivery O2 Flow Rate FiO2 05/24/19 11:14 73 16 30 05/24/19 10:00 80 16 123/70 (87) 100 05/24/19 09:02 80 19 30 05/24/19 08:00 Mechanical Ventilator 05/24/19 08:00 98.0 82 17 100/66 (77) 100 05/24/19 08:00 30 05/24/19 07:47 74 05/24/19 07:00 83 16 98/65 (76) 100 05/24/19 06:51 91 16 30 05/24/19 06:00 83 16 93/59 (70) 100 05/24/19 05:07 73 16 30 30 05/24/19 05:00 73 16 100/63 (75) 100 05/24/19 04:00 97.4 85 16 106/65 (79) 100 05/24/19 04:00 30 05/24/19 04:00 Mechanical Ventilator 05/24/19 03:36 82 05/24/19 03:10 88 16 30 30 05/24/19 03:00 87 17 103/64 (77) 100 05/24/19 02:00 90 16 102/64 (77) 100 05/24/19 01:15 86 17 30 30 05/24/19 01:00 87 17 129/79 (96) 99 05/24/19 00:00 Mechanical Ventilator 05/24/19 00:00 30 05/24/19 00:00 97.8 89 18 112/71 (85) 99 05/23/19 23:16 96 18 30 30 05/23/19 23:02 96 05/23/19 23:00 98 20 100/62 (75) 96 05/23/19 22:00 91 17 100/56 (71) 100 05/23/19 21:15 98/58 05/23/19 21:00 88 17 98/58 (71) 100 05/23/19 20:50 88 16 30 30 05/23/19 20:00 Mechanical Ventilator 05/23/19 20:00 30 05/23/19 20:00 98.5 89 18 98/62 (74) 98 05/23/19 19:49 87 05/23/19 19:25 83 18 30 30 05/23/19 19:00 88 18 99/57 (71) 100 05/23/19 18:00 92 20 102/62 (75) 94 05/23/19 17:25 90 16 30 05/23/19 17:00 90 16 106/58 (74) 96 05/23/19 16:00 79 05/23/19 16:00 30 05/23/19 16:00 Mechanical Ventilator 05/23/19 16:00 97.5 79 17 90/56 (67) 99 05/23/19 15:20 78 16 30 05/23/19 15:00 80 16 99/54 (69) 98 05/23/19 14:00 79 19 96/54 (68) 98 05/23/19 13:15 80 16 30 05/23/19 13:00 69 17 92/60 (71) 100 Intake and Output 05/23/19 05/24/19 19:00 07:00 Intake Total 2261.040 ml 1559.96 ml Output Total 1490 ml 1900 ml Balance 771.040 ml -340.04 ml Intake Free Water 100 ml 50 ml IV Total 1441.040 ml 789.96 ml Tube Feeding 720 ml 720 ml Output Urine Total 1490 ml 1900 ml # Bowel Movements 2 2 Laboratory Tests 05/24/19 04:35: White Blood Count 15.8H, Red Blood Count 3.13L, Hemoglobin 8.1L, Hematocrit 26.1L, Mean Corpuscular Volume 83, Mean Corpuscular Hemoglobin 25.8L, Mean Corpuscular Hemoglobin Concent 31.0L, Red Cell Distribution Width 17.6H, Platelet Count 388, Mean Platelet Volume 6.0L, Neutrophils (%) (Auto) 84.9H, Lymphocytes (%) (Auto) 11.8L, Monocytes (%) (Auto) 1.7, Eosinophils (%) (Auto) 1.5, Basophils (%) (Auto) 0.2, Sodium Level 151H, Potassium Level 3.7, Chloride Level 115H, Carbon Dioxide Level 28, Anion Gap 8, Blood Urea Nitrogen 12, Creatinine 0.3L, Estimat Glomerular Filtration Rate > 60, Glucose Level 172H, Calcium Level 10.6H, Phosphorus Level 2.3L, Magnesium Level 2.1, Total Bilirubin 0.2, Direct Bilirubin < 0.1, Aspartate Amino Transf (AST/SGOT) 43H, Alanine Aminotransferase (ALT/SGPT) 80H, Alkaline Phosphatase 151H, Total Protein 6.1L, Albumin 1.7L Height (Feet): 5 Height (Inches): 3.00 Weight (Pounds): 155 General Appearance: no apparent distress, lethargic EENT: other - trach Cardiovascular: normal rate Respiratory/Chest: decreased breath sounds Abdomen: distended Palomo Lizarraga MD May 24, 2019 12:09
[2019-05-24] MEDS: Ertapenem 1gm ivpb (q24h) IV SCH ×2 (12:20)
--- NOTE | 2019-05-24 12:59 | Surgery Progress Note ---
Surgery Progress Note Subjective Additional Comments out of ICU ill appearing prognosis poor labs noted DNR/DNI Objective Last 24 Hour Vital Signs Date Time Temp Pulse Resp B/P (MAP) Pulse Ox O2 Delivery O2 Flow Rate FiO2 05/24/19 12:00 30 05/24/19 12:00 98.1 72 16 97/63 (74) 100 05/24/19 11:14 73 16 30 05/24/19 10:00 80 16 123/70 (87) 100 05/24/19 09:02 80 19 30 05/24/19 08:00 Mechanical Ventilator 05/24/19 08:00 98.0 82 17 100/66 (77) 100 05/24/19 08:00 30 05/24/19 07:47 74 05/24/19 07:00 83 16 98/65 (76) 100 05/24/19 06:51 91 16 30 05/24/19 06:00 83 16 93/59 (70) 100 05/24/19 05:07 73 16 30 30 05/24/19 05:00 73 16 100/63 (75) 100 05/24/19 04:00 97.4 85 16 106/65 (79) 100 05/24/19 04:00 30 05/24/19 04:00 Mechanical Ventilator 05/24/19 03:36 82 05/24/19 03:10 88 16 30 30 05/24/19 03:00 87 17 103/64 (77) 100 05/24/19 02:00 90 16 102/64 (77) 100 05/24/19 01:15 86 17 30 30 05/24/19 01:00 87 17 129/79 (96) 99 05/24/19 00:00 Mechanical Ventilator 05/24/19 00:00 30 05/24/19 00:00 97.8 89 18 112/71 (85) 99 05/23/19 23:16 96 18 30 30 05/23/19 23:02 96 05/23/19 23:00 98 20 100/62 (75) 96 05/23/19 22:00 91 17 100/56 (71) 100 05/23/19 21:15 98/58 05/23/19 21:00 88 17 98/58 (71) 100 05/23/19 20:50 88 16 30 30 05/23/19 20:00 Mechanical Ventilator 05/23/19 20:00 30 05/23/19 20:00 98.5 89 18 98/62 (74) 98 05/23/19 19:49 87 05/23/19 19:25 83 18 30 30 05/23/19 19:00 88 18 99/57 (71) 100 05/23/19 18:00 92 20 102/62 (75) 94 05/23/19 17:25 90 16 30 05/23/19 17:00 90 16 106/58 (74) 96 05/23/19 16:00 79 05/23/19 16:00 30 05/23/19 16:00 Mechanical Ventilator 05/23/19 16:00 97.5 79 17 90/56 (67) 99 05/23/19 15:20 78 16 30 05/23/19 15:00 80 16 99/54 (69) 98 05/23/19 14:00 79 19 96/54 (68) 98 05/23/19 13:15 80 16 30 05/23/19 13:00 69 17 92/60 (71) 100 I&O Intake and Output 05/23/19 05/24/19 19:00 07:00 Intake Total 2261.040 ml 1559.96 ml Output Total 1490 ml 1900 ml Balance 771.040 ml -340.04 ml Intake Free Water 100 ml 50 ml IV Total 1441.040 ml 789.96 ml Tube Feeding 720 ml 720 ml Output Urine Total 1490 ml 1900 ml # Bowel Movements 2 2 Dressing: saturated Wound: other Drains: other Cardiovascular: RSR Respiratory: decreased breath sounds Abdomen: soft, present bowel sounds, non-distended Extremities: no cyanosis, other Laboratory Tests Test 05/24/19 04:35 White Blood Count 15.8 K/UL (4.8-10.8) H Red Blood Count 3.13 M/UL (4.20-5.40) L Hemoglobin 8.1 G/DL (12.0-16.0) L Hematocrit 26.1 % (37.0-47.0) L Mean Corpuscular Volume 83 FL (80-99) Mean Corpuscular Hemoglobin 25.8 PG (27.0-31.0) L Mean Corpuscular Hemoglobin Concent 31.0 G/DL (32.0-36.0) L Red Cell Distribution Width 17.6 % (11.6-14.8) H Platelet Count 388 K/UL (150-450) Mean Platelet Volume 6.0 FL (6.5-10.1) L Neutrophils (%) (Auto) 84.9 % (45.0-75.0) H Lymphocytes (%) (Auto) 11.8 % (20.0-45.0) L Monocytes (%) (Auto) 1.7 % (1.0-10.0) Eosinophils (%) (Auto) 1.5 % (0.0-3.0) Basophils (%) (Auto) 0.2 % (0.0-2.0) Sodium Level 151 MMOL/L (136-145) H Potassium Level 3.7 MMOL/L (3.5-5.1) Chloride Level 115 MMOL/L (98-107) H Carbon Dioxide Level 28 MMOL/L (21-32) Anion Gap 8 mmol/L (5-15) Blood Urea Nitrogen 12 mg/dL (7-18) Creatinine 0.3 MG/DL (0.55-1.30) L Estimat Glomerular Filtration Rate > 60 mL/min (>60) Glucose Level 172 MG/DL (74-106) H Calcium Level 10.6 MG/DL (8.5-10.1) H Phosphorus Level 2.3 MG/DL (2.5-4.9) L Magnesium Level 2.1 MG/DL (1.8-2.4) Total Bilirubin 0.2 MG/DL (0.2-1.0) Direct Bilirubin < 0.1 MG/DL (0.0-0.3) Aspartate Amino Transf (AST/SGOT) 43 U/L (15-37) H Alanine Aminotransferase (ALT/SGPT) 80 U/L (12-78) H Alkaline Phosphatase 151 U/L (46-116) H Total Protein 6.1 G/DL (6.4-8.2) L Albumin 1.7 G/DL (3.4-5.0) L Plan Problems: (1) Septic shock Assessment & Plan: fever, leukocytosis, tachycardia ill appearing in ICU currently on IV Abx as per ID poor prognosis DNR/DNI will follow with recs trends labs (2) Multiple organ failure (3) MDRO (multiple drug resistant organisms) resistance (4) Severe anemia (5) Feeding by G-tube (6) Chronic respiratory failure (7) Hypercalcemia (8) Urinary tract infection (9) Chronic anoxic encephalopathy (10) Decubitus skin ulcer Assessment & Plan: Pt presented on admission with multiple pressure injuries: L earlobe grossly malodorous and necrotic with partial loss of earlobe.Ear canal and posterior to earlobe noted to be purple/red.(L)6cm x (W)1.5cm.Smal amt brown exudate noted. Dry eschar noted to R earlobe (L)1cm. Full thickness Sacral pressure with undermining.100% soft necrosis noted to base of wound and undermined borders. Additional soft necrosis noted to edges and periwound. Wound is malodorous. Small amt black exudate noted.(L)(L)7.5cm x (W)9.7cm. Unstageable pressure injury L heel .Base of wound fluctuant and purple in centre with surrounding dry eschar (L)3.4cm x (W)3.2cm.Non-blanchable erythema periwound. R heel dry and blanchable. Skin Assessed under collar of trach and no areas of concerns noted. Tx.Plan: Cleanse L earlobe with Dakin's 0.25% nataly. Apply Dakin's 0.25% moist [id number] and cover with Optifoam drsg Twice Daily and PRN. Cleanse Sacral area with Dakin's 0.25% Nataly.Loosely pack wound with Dakin's moist Kerlix. Apply Triad Periwound. Cover with Optifoam drsg. Twice Daily and prn. Apply Betadine to L heel. Cover with Optifoam drsg. Change every 3 days and prn. Reposition at least every 2hours or as tolerated. Off-load heels with pillow. if improves and stable will need debridement at some point either inpatient or outpatient (11) History of sudden cardiac arrest (12) Sepsis (13) ATN (acute tubular necrosis) (14) Acute and chronic respiratory failure Levon Nunes May 24, 2019 12:59
[2019-05-24] MEDS ORDERED: Piperacillin/Tazobactam 3.375 GM in NS 110 ML IVPB SCH (14:00)
--- NOTE | 2019-05-24 15:22 | NUR ---
*-* INSURANCE *-* ALL CLINICALS AND REVIEWS HAVE BEEN FAXED TO: [employer] S/W ИРИНА, AWARE OF THIS ADMISSION NCM: ИРИНА KEARNEY P- [phone] F- [phone]....REVIEW/CLINICAL
--- NOTE | 2019-05-24 15:50 | Infectious Diseases Prog Note ---
Assessment/Plan Assessment/Plan 69 yo female with PMHx of HTN, HLD chronic respiratory failure s/p PEG and Trach who [facility]. Sepsis UA pos UCx 05/19/19 - Mixed leslee Leukocytosis of 19 Blood Cx 05/19/19 - Proteus x 2 sets ESBL; 05/23 Bcx p Respiratory distress , Probable PNA On Vent -05/23 CXR: Dense retrocardiac opacity noted. Heart size is stable. Tracheostomy again noted. Mild vascular congestion suspected currently. -sp cx p CXR - Left sided consolidation. No Fever Elevated LFTs Sacral ulcer Need debridement Ear wound healing chronic respiratory failure s/p trach/vent PEG schizoaffective disorder Plan: - Continue empiric Vancomycin #5 pending sp cx -Switch Zosyn #5 to Ertapenem for ESBL bacteremia -Monitor CBC/CMP, temperatures -f/u BCxx 2, Sp cx Thank you for this consult. We will continue to follow the patient during this hospitalization. Subjective Allergies: Coded Allergies: DIPHENHYDRAMINE (Verified Allergy, Unknown, 02/24/19) FLUPHENAZINE (Verified Allergy, Unknown, 02/24/19) Subjective afebrile wbc improving bacteremic Objective Vital Signs Last 24 Hour Vital Signs Date Time Temp Pulse Resp B/P (MAP) Pulse Ox O2 Delivery O2 Flow Rate FiO2 05/24/19 15:27 Mechanical Ventilator 05/24/19 15:07 76 19 30 05/24/19 13:18 70 16 30 05/24/19 12:30 70 05/24/19 12:00 30 05/24/19 12:00 Mechanical Ventilator 05/24/19 12:00 98.1 72 16 97/63 (74) 100 05/24/19 11:14 73 16 30 05/24/19 10:00 80 16 123/70 (87) 100 05/24/19 09:02 80 19 30 05/24/19 08:00 Mechanical Ventilator 05/24/19 08:00 98.0 82 17 100/66 (77) 100 05/24/19 08:00 30 05/24/19 07:47 74 05/24/19 07:00 83 16 98/65 (76) 100 05/24/19 06:51 91 16 30 05/24/19 06:00 83 16 93/59 (70) 100 05/24/19 05:07 73 16 30 30 05/24/19 05:00 73 16 100/63 (75) 100 05/24/19 04:00 97.4 85 16 106/65 (79) 100 05/24/19 04:00 30 05/24/19 04:00 Mechanical Ventilator 05/24/19 03:36 82 05/24/19 03:10 88 16 30 30 05/24/19 03:00 87 17 103/64 (77) 100 05/24/19 02:00 90 16 102/64 (77) 100 05/24/19 01:15 86 17 30 30 05/24/19 01:00 87 17 129/79 (96) 99 05/24/19 00:00 Mechanical Ventilator 05/24/19 00:00 30 05/24/19 00:00 97.8 89 18 112/71 (85) 99 05/23/19 23:16 96 18 30 30 05/23/19 23:02 96 05/23/19 23:00 98 20 100/62 (75) 96 05/23/19 22:00 91 17 100/56 (71) 100 05/23/19 21:15 98/58 05/23/19 21:00 88 17 98/58 (71) 100 05/23/19 20:50 88 16 30 30 05/23/19 20:00 Mechanical Ventilator 05/23/19 20:00 30 05/23/19 20:00 98.5 89 18 98/62 (74) 98 05/23/19 19:49 87 05/23/19 19:25 83 18 30 30 05/23/19 19:00 88 18 99/57 (71) 100 05/23/19 18:00 92 20 102/62 (75) 94 05/23/19 17:25 90 16 30 05/23/19 17:00 90 16 106/58 (74) 96 05/23/19 16:00 79 05/23/19 16:00 30 05/23/19 16:00 Mechanical Ventilator 05/23/19 16:00 97.5 79 17 90/56 (67) 99 Height (Feet): 5 Height (Inches): 3.00 Weight (Pounds): 155 Objective Gen: Not following, Trached on Vent HEENT: NCAT, MMM, PERRL LUNGS: Course B/L CARDS: RRR, S1, S2 ABD: Soft, NT, ND, + BS NEURO: Not verbal, No following SKIN: Warm/dry, No rashes, Sacral decub stage 4 Microbiology Date/Time Source Procedure Growth Status 05/23/19 14:00 Sputum Induced Gram Stain - Final Resulted 05/23/19 14:00 Sputum Induced Sputum Culture Pending Resulted Laboratory Tests Test 05/24/19 04:35 White Blood Count 15.8 K/UL (4.8-10.8) H Red Blood Count 3.13 M/UL (4.20-5.40) L Hemoglobin 8.1 G/DL (12.0-16.0) L Hematocrit 26.1 % (37.0-47.0) L Mean Corpuscular Volume 83 FL (80-99) Mean Corpuscular Hemoglobin 25.8 PG (27.0-31.0) L Mean Corpuscular Hemoglobin Concent 31.0 G/DL (32.0-36.0) L Red Cell Distribution Width 17.6 % (11.6-14.8) H Platelet Count 388 K/UL (150-450) Mean Platelet Volume 6.0 FL (6.5-10.1) L Neutrophils (%) (Auto) 84.9 % (45.0-75.0) H Lymphocytes (%) (Auto) 11.8 % (20.0-45.0) L Monocytes (%) (Auto) 1.7 % (1.0-10.0) Eosinophils (%) (Auto) 1.5 % (0.0-3.0) Basophils (%) (Auto) 0.2 % (0.0-2.0) Sodium Level 151 MMOL/L (136-145) H Potassium Level 3.7 MMOL/L (3.5-5.1) Chloride Level 115 MMOL/L (98-107) H Carbon Dioxide Level 28 MMOL/L (21-32) Anion Gap 8 mmol/L (5-15) Blood Urea Nitrogen 12 mg/dL (7-18) Creatinine 0.3 MG/DL (0.55-1.30) L Estimat Glomerular Filtration Rate > 60 mL/min (>60) Glucose Level 172 MG/DL (74-106) H Calcium Level 10.6 MG/DL (8.5-10.1) H Phosphorus Level 2.3 MG/DL (2.5-4.9) L Magnesium Level 2.1 MG/DL (1.8-2.4) Total Bilirubin 0.2 MG/DL (0.2-1.0) Direct Bilirubin < 0.1 MG/DL (0.0-0.3) Aspartate Amino Transf (AST/SGOT) 43 U/L (15-37) H Alanine Aminotransferase (ALT/SGPT) 80 U/L (12-78) H Alkaline Phosphatase 151 U/L (46-116) H Total Protein 6.1 G/DL (6.4-8.2) L Albumin 1.7 G/DL (3.4-5.0) L Current Medications Medications (Trade) Dose Ordered Sig/Lavon Route PRN Reason Start Time Stop Time Status Last Admin Dose Admin Acetaminophen (Tylenol) 650 mg Q4H PRN ORAL FEVER (temp> 100.5F) 05/19/19 15:30 06/18/19 15:29 Dextrose 1,000 ml @ 30 mls/hr Q24H IV 05/24/19 12:00 06/23/19 11:59 05/24/19 12:15 Ertapenem 1 gm/ Sodium Chloride 55 ml @ 110 mls/hr Q24H IV 05/24/19 12:00 05/29/19 11:59 05/24/19 12:20 Heparin Sodium (Porcine) (Heparin 5000 units/ml) 5,000 units EVERY 12 HOURS SUBQ 05/24/19 21:00 06/23/19 20:59 Insulin Aspart (NovoLOG) Q4HR SUBQ 05/24/19 13:00 06/23/19 12:59 05/24/19 14:42 Insulin Aspart (NovoLOG) 6 units EVERY 4 HOURS SUBQ 05/24/19 13:00 06/23/19 12:59 05/24/19 14:43 Insulin Detemir (Levemir) 24 units Q12HR SUBQ 05/24/19 21:00 06/23/19 20:59 Lorazepam (Ativan 2mg/ml 1ml) 2 mg Q2H PRN IV For Anxiety 05/19/19 15:30 05/26/19 15:29 Morphine Sulfate (Morphine Sulfate) 4 mg Q4H PRN IVP Severe Pain (Pain Scale 7-10) 05/24/19 12:00 05/31/19 11:59 Sodium Hypochlorite (Dakin's Quarter Strength) 1 applic BEDTIME TOPIC 05/24/19 21:00 06/23/19 20:59 Renae Conteh M.D. May 24, 2019 15:50
--- NOTE | 2019-05-24 16:42 | Internal Med Progress Note ---
Subjective Date of Service: May 24, 2019 Physician Name Chase Sweeney Attending Physician Mainor Newsome MD Current Medications Medications (Trade) Dose Ordered Sig/Lavon Route PRN Reason Start Time Stop Time Status Last Admin Dose Admin Acetaminophen (Tylenol) 650 mg Q4H PRN ORAL FEVER (temp> 100.5F) 05/19/19 15:30 06/18/19 15:29 Calcitonin [place]field (Miacalcin) 1 sprays DAILY NASAL 05/25/19 09:00 06/24/19 08:59 Dextrose 1,000 ml @ 30 mls/hr Q24H IV 05/24/19 12:00 06/23/19 11:59 05/24/19 12:15 Ertapenem 1 gm/ Sodium Chloride 55 ml @ 110 mls/hr Q24H IV 05/24/19 12:00 05/29/19 11:59 05/24/19 12:20 Heparin Sodium (Porcine) (Heparin 5000 units/ml) 5,000 units EVERY 12 HOURS SUBQ 05/24/19 21:00 06/23/19 20:59 Insulin Aspart (NovoLOG) Q4HR SUBQ 05/24/19 13:00 06/23/19 12:59 05/24/19 14:42 Insulin Aspart (NovoLOG) 6 units EVERY 4 HOURS SUBQ 05/24/19 13:00 06/23/19 12:59 05/24/19 14:43 Insulin Detemir (Levemir) 24 units Q12HR SUBQ 05/24/19 21:00 06/23/19 20:59 Lorazepam (Ativan 2mg/ml 1ml) 2 mg Q2H PRN IV For Anxiety 05/19/19 15:30 05/26/19 15:29 Morphine Sulfate (Morphine Sulfate) 4 mg Q4H PRN IVP Severe Pain (Pain Scale 7-10) 05/24/19 12:00 05/31/19 11:59 Sodium Hypochlorite (Dakin's Quarter Strength) 1 applic BEDTIME TOPIC 05/24/19 21:00 06/23/19 20:59 Vancomycin HCl (Vanco rx to dose) 1 ea DAILY PRN MISC Per rx protocol 05/24/19 16:00 06/23/19 15:59 Vancomycin HCl 1 gm/Dextrose 275 ml @ 183.708 mls/hr Q12H IVPB 05/24/19 17:00 05/29/19 16:59 Allergies: Coded Allergies: DIPHENHYDRAMINE (Verified Allergy, Unknown, 02/24/19) FLUPHENAZINE (Verified Allergy, Unknown, 02/24/19) ROS Limited/Unobtainable: Yes Subjective 69 YO M admitted with respiratory failure and pneumonia. Now sepsis. Intubated. Cover for Int Isael-Dr Newsome. GERTRUDIS Objective Last Vital Signs Date Time Temp Pulse Resp B/P (MAP) Pulse Ox O2 Delivery O2 Flow Rate FiO2 05/24/19 16:00 30 05/24/19 15:45 84 05/24/19 15:27 Mechanical Ventilator 05/24/19 15:07 19 05/24/19 12:00 98.1 97/63 (74) 100 05/20/19 00:00 70.0 Laboratory Tests Test 05/24/19 04:35 White Blood Count 15.8 K/UL (4.8-10.8) H Red Blood Count 3.13 M/UL (4.20-5.40) L Hemoglobin 8.1 G/DL (12.0-16.0) L Hematocrit 26.1 % (37.0-47.0) L Mean Corpuscular Volume 83 FL (80-99) Mean Corpuscular Hemoglobin 25.8 PG (27.0-31.0) L Mean Corpuscular Hemoglobin Concent 31.0 G/DL (32.0-36.0) L Red Cell Distribution Width 17.6 % (11.6-14.8) H Platelet Count 388 K/UL (150-450) Mean Platelet Volume 6.0 FL (6.5-10.1) L Neutrophils (%) (Auto) 84.9 % (45.0-75.0) H Lymphocytes (%) (Auto) 11.8 % (20.0-45.0) L Monocytes (%) (Auto) 1.7 % (1.0-10.0) Eosinophils (%) (Auto) 1.5 % (0.0-3.0) Basophils (%) (Auto) 0.2 % (0.0-2.0) Sodium Level 151 MMOL/L (136-145) H Potassium Level 3.7 MMOL/L (3.5-5.1) Chloride Level 115 MMOL/L (98-107) H Carbon Dioxide Level 28 MMOL/L (21-32) Anion Gap 8 mmol/L (5-15) Blood Urea Nitrogen 12 mg/dL (7-18) Creatinine 0.3 MG/DL (0.55-1.30) L Estimat Glomerular Filtration Rate > 60 mL/min (>60) Glucose Level 172 MG/DL (74-106) H Calcium Level 10.6 MG/DL (8.5-10.1) H Phosphorus Level 2.3 MG/DL (2.5-4.9) L Magnesium Level 2.1 MG/DL (1.8-2.4) Total Bilirubin 0.2 MG/DL (0.2-1.0) Direct Bilirubin < 0.1 MG/DL (0.0-0.3) Aspartate Amino Transf (AST/SGOT) 43 U/L (15-37) H Alanine Aminotransferase (ALT/SGPT) 80 U/L (12-78) H Alkaline Phosphatase 151 U/L (46-116) H Total Protein 6.1 G/DL (6.4-8.2) L Albumin 1.7 G/DL (3.4-5.0) L Microbiology Date/Time Source Procedure Growth Status 05/23/19 14:00 Sputum Induced Gram Stain - Final Resulted 05/23/19 14:00 Sputum Induced Sputum Culture Pending Resulted Intake and Output 05/23/19 05/24/19 19:00 07:00 Intake Total 2261.040 ml 1559.96 ml Output Total 1490 ml 1900 ml Balance 771.040 ml -340.04 ml Intake Free Water 100 ml 50 ml IV Total 1441.040 ml 789.96 ml Tube Feeding 720 ml 720 ml Output Urine Total 1490 ml 1900 ml # Bowel Movements 2 2 Objective PHYSICAL EXAMINATION: GENERAL: The patient is awake, responsive to painful stimuli with open her eyes. HEAD AND NECK: Pupils are reactive to light, anicteric. Neck was supple. Tracheostomy site is intact. LUNGS: Mech Vent; Good air entry. No wheezing or rales. Mechanical breath sounds. HEART: Reveals S1, S2. Regular rhythm. No gallops. ABDOMEN: Soft, nondistended, and nontender. Positive bowel sounds. Status post, the patient has PEG, site is intact. RECTAL: Refused and deferred. GENITOURINARY: Refused and deferred. BACK: Has a sacral decubitus ulcer, stage IV with necrotic tissue, foul smell. EXTREMITIES: No cyanosis, clubbing, or edema. Contracted lower extremity was noted as well as upper extremity. NEUROLOGIC: Limited secondary to the patient's status, but the patient is unable to move the extremities. Assessment/Plan Assessment/Plan ASSESSMENT: 1. Sepsis secondary to pneumonia as well as infected decubitus ulcer. 2. Hypotension, most likely secondary to the sepsis and septic shock. 3. Hypertension. 4. Dyslipidemia. 5. Acute on chronic respiratory failure. 6. History of cardiac arrest with anoxic brain injury. 7. COPD. 8. Status post trach and PEG. 9. Infected sacral decubitus ulcer, stage IV, present on admission. PLAN: 1. Admit the patient to ICU. 2. At this time, code status is Full Code. 3. sepsis=Proteus Mirabilis. antibiotics= vancomycin as well as Zosyn. See ID recs 4. Pneumonia/respiratory failure. Discussed case with Dr. Corrigan from Pulmonary Critical Care 5. D/W Dr. Chadwick Keith from Infectious Disease and Dr. Niall Levy from Cardiology. Chase Sweeney MD May 24, 2019 16:41
--- NOTE | 2019-05-24 18:07 | NUR ---
NURSE NOTES: Right femoral central line removed per Dr Corrigan's order. Pressure dressing applied. Peripheral IV on right wrist intact and patent. Will continue to monitor. Addendum: 05/24/19 at 1832 by Kaela Velazquez RN Per Dr Corrigan, cancel PICC line placement tomorrow 05/25/19.
--- NOTE | 2019-05-24 19:00 | NUR ---
HAND-OFF: Report given to DB Rice. Patient in stable condition.
--- NOTE | 2019-05-24 19:01 | NUR ---
NURSE NOTES: BEDSIDE REPORT RECEIVED FROM DB JACOBO. PT IS OBTUNDED, OPENS EYES SPONTANEOUSLY, BUT NO RESPONSE TO DEEP PAIN. SENIOR UI UX DEVELOPER SHOWING NSR. PORTEX 7, AC 16, TV 600, FIO2 30, PEEP 5. VITAL AF 1.2 @ 60, NO RESIDUAL. SEGOVIA IN PLACE FOR RETENTION. SKIN IS CLEAN, DRY, DRESSINGS INTACT. RW 20 RUNNING D5W @ 30; ASYMPTOMATIC. BED IS LOCKED IN LOWEST POSITION, SR X3, CALL WARD W/ IN REACH, BED ALARM ON. WILL CONTINUE TO MONITOR AND FOLLOW W/ PLAN OF CARE.
[2019-05-24] MEDS ORDERED: Dakin's 0.125% Soln (Quarter Strength) 16oz TOPIC SCH (21:00)
[2019-05-25] VITALS: BP 101/61
[2019-05-25 04:00] VITALS: BP 107/71
[2019-05-25] MEDS: Vancomycin 1gm/D5W 275ml IVPB SCH ×6 (05:24→16:04)
[2019-05-25] MEDS: NovoLOG Insulin Flexpen SUBQ SCH ×6 (05:26→17:21)
[2019-05-25 05:33] LABS: BASOPHILS % (AUTO) 0.5 % (0.0-2.0); EOSINOPHILS % (AUTO) 1.2 % (0.0-3.0); LYMPHOCYTES % (AUTO) 13.9 % (20.0-45.0); MEAN CORPUSCULAR VOLUME 84 FL (80-99); MONOCYTES % (AUTO) 2.5 % (1.0-10.0); PLATELET COUNT 385 K/UL (150-450); RED BLOOD COUNT 3.44 M/UL (4.20-5.40); RED CELL DISTRIBUTION WIDTH 17.6 % (11.6-14.8); WHITE BLOOD COUNT 13.2 K/UL (4.8-10.8)
[2019-05-25 06:28] LABS: ALANINE AMINOTRANSFERASE 74 U/L (12-78); ALBUMIN 1.8 G/DL (3.4-5.0); ALBUMIN/GLOBULIN RATIO 0.4 (1.0-2.7); ALKALINE PHOSPHATASE 164 U/L (46-116); ANION GAP 9 mmol/L (5-15); ASPARTATE AMINO TRANSFERASE 44 U/L (15-37); BILIRUBIN,TOTAL 0.1 MG/DL (0.2-1.0); BLOOD UREA NITROGEN 14 mg/dL (7-18); CALCIUM 10.7 MG/DL (8.5-10.1); CARBON DIOXIDE 26 MMOL/L (21-32); CHLORIDE 114 MMOL/L (98-107); CREATININE 0.3 MG/DL (0.55-1.30); PHOSPHORUS 2.2 MG/DL (2.5-4.9); POTASSIUM 3.7 MMOL/L (3.5-5.1); SODIUM 149 MMOL/L (136-145)
--- NOTE | 2019-05-25 06:39 | General Progress Note ---
Assessment/Plan Problem List: (1) Diabetes mellitus out of control ICD Codes: E11.65 - Type 2 diabetes mellitus with hyperglycemia SNOMED: 79891335, 038226747 (2) Sepsis ICD Codes: A41.9 - Sepsis, unspecified organism SNOMED: 82440421 (3) Urinary tract infection ICD Codes: N39.0 - Urinary tract infection, site not specified SNOMED: 94301882 (4) Chronic respiratory failure ICD Codes: J96.10 - Chronic respiratory failure, unspecified whether with hypoxia or hypercapnia SNOMED: 83379878 Assessment/Plan: continue Levemir 24 units bid continue Novolog 6 units every 6 hours continue NISS every 6 hours resistant scale Subjective ROS Limited/Unobtainable: Yes Allergies: Coded Allergies: DIPHENHYDRAMINE (Verified Allergy, Unknown, 02/24/19) FLUPHENAZINE (Verified Allergy, Unknown, 02/24/19) Subjective events noted Item Value Date Time Bedside Blood Glucose 165 mg/dl H 05/25/19 0600 Bedside Blood Glucose 179 mg/dl H 05/24/19 2100 Bedside Blood Glucose 164 mg/dl H 05/24/19 1704 Bedside Blood Glucose 132 mg/dl H 05/24/19 1443 Bedside Blood Glucose 175 mg/dl H 05/24/19 0937 Bedside Blood Glucose 168 mg/dl H 05/24/19 0442 Bedside Blood Glucose 155 mg/dl H 05/24/19 0033 Objective Last 24 Hour Vital Signs Date Time Temp Pulse Resp B/P (MAP) Pulse Ox O2 Delivery O2 Flow Rate FiO2 05/25/19 05:29 73 16 30 05/25/19 04:00 30 05/25/19 04:00 76 05/25/19 04:00 97.2 76 16 107/71 (83) 99 05/25/19 04:00 Mechanical Ventilator 05/25/19 02:50 77 18 30 05/25/19 01:08 80 16 30 05/25/19 00:00 Mechanical Ventilator 05/25/19 00:00 98.4 77 17 101/61 (74) 98 05/25/19 00:00 30 05/24/19 23:38 77 05/24/19 22:47 79 16 30 05/24/19 21:25 72 16 30 05/24/19 20:00 30 05/24/19 20:00 98.2 84 16 112/63 (79) 100 05/24/19 20:00 Mechanical Ventilator 05/24/19 19:24 75 22 30 05/24/19 19:04 73 05/24/19 17:00 87 24 30 05/24/19 16:00 97.8 89 17 111/71 (84) 98 05/24/19 16:00 30 05/24/19 15:45 84 05/24/19 15:27 Mechanical Ventilator 05/24/19 15:07 76 19 30 05/24/19 13:18 70 16 30 05/24/19 12:30 70 05/24/19 12:00 30 05/24/19 12:00 Mechanical Ventilator 05/24/19 12:00 98.1 72 16 97/63 (74) 100 05/24/19 11:14 73 16 30 05/24/19 10:00 80 16 123/70 (87) 100 05/24/19 09:02 80 19 30 05/24/19 08:00 Mechanical Ventilator 05/24/19 08:00 98.0 82 17 100/66 (77) 100 05/24/19 08:00 30 05/24/19 07:47 74 05/24/19 07:00 83 16 98/65 (76) 100 05/24/19 06:51 91 16 30 Intake and Output 05/24/19 05/25/19 18:59 06:59 Intake Total 1201.7603 ml 1549.073 ml Output Total 1600 ml 900 ml Balance -398.2397 ml 649.073 ml Intake Free Water 50 ml 180 ml IV Total 431.7603 ml 589.073 ml Tube Feeding 720 ml 780 ml Output Urine Total 1600 ml 900 ml # Bowel Movements 2 2 Laboratory Tests 05/25/19 04:22: White Blood Count 13.2H, Red Blood Count 3.44L, Hemoglobin 9.0L, Hematocrit 29.0L, Mean Corpuscular Volume 84, Mean Corpuscular Hemoglobin 26.2L, Mean Corpuscular Hemoglobin Concent 31.2L, Red Cell Distribution Width 17.6H, Platelet Count 385, Mean Platelet Volume 6.1L, Neutrophils (%) (Auto) 82.0H, Lymphocytes (%) (Auto) 13.9L, Monocytes (%) (Auto) 2.5, Eosinophils (%) (Auto) 1.2, Basophils (%) (Auto) 0.5, Sodium Level 149H, Potassium Level 3.7, Chloride Level 114H, Carbon Dioxide Level 26, Anion Gap 9, Blood Urea Nitrogen 14, Creatinine 0.3L, Estimat Glomerular Filtration Rate > 60, Glucose Level 160H, Calcium Level 10.7H, Phosphorus Level 2.2L, Magnesium Level 2.3, Total Bilirubin 0.1L, Aspartate Amino Transf (AST/SGOT) 44H, Alanine Aminotransferase (ALT/SGPT) 74, Alkaline Phosphatase 164H, Total Protein 6.6, Albumin 1.8L, Globulin 4.8, Albumin/Globulin Ratio 0.4L Height (Feet): 5 Height (Inches): 3.00 Weight (Pounds): 148 General Appearance: no apparent distress Neck: normal alignment Cardiovascular: normal rate Respiratory/Chest: decreased breath sounds Abdomen: normal bowel sounds Pelvis: normal external exam Objective Current Medications Medications (Trade) Dose Ordered Sig/Lavon Route PRN Reason Start Time Stop Time Status Last Admin Dose Admin Acetaminophen (Tylenol) 650 mg Q4H PRN ORAL FEVER (temp> 100.5F) 05/19/19 15:30 06/18/19 15:29 Calcitonin [place] (Miacalcin) 1 sprays DAILY NASAL 05/25/19 09:00 06/24/19 08:59 Dextrose 1,000 ml @ 30 mls/hr Q24H IV 05/24/19 12:00 06/23/19 11:59 05/24/19 12:15 Ertapenem 1 gm/ Sodium Chloride 55 ml @ 110 mls/hr Q24H IV 05/24/19 12:00 05/29/19 11:59 05/24/19 12:20 Heparin Sodium (Porcine) (Heparin 5000 units/ml) 5,000 units EVERY 12 HOURS SUBQ 05/24/19 21:00 06/23/19 20:59 05/24/19 20:24 Insulin Aspart (NovoLOG) EVERY 6 HOURS SUBQ 05/25/19 06:00 06/24/19 05:59 05/25/19 05:26 Insulin Aspart (NovoLOG) 6 units EVERY 6 HOURS SUBQ 05/25/19 06:00 06/24/19 05:59 05/25/19 05:26 Insulin Detemir (Levemir) 24 units Q12HR SUBQ 05/24/19 21:00 06/23/19 20:59 05/24/19 20:24 Lorazepam (Ativan 2mg/ml 1ml) 2 mg Q2H PRN IV For Anxiety 05/19/19 15:30 05/26/19 15:29 Morphine Sulfate (Morphine Sulfate) 4 mg Q4H PRN IVP Severe Pain (Pain Scale 7-10) 05/24/19 12:00 05/31/19 11:59 Sodium Hypochlorite (Dakin's Quarter Strength) 1 applic BEDTIME TOPIC 05/24/19 21:00 06/23/19 20:59 05/24/19 20:25 Vancomycin HCl (Vanco rx to dose) 1 ea DAILY PRN MISC Per rx protocol 05/24/19 16:00 06/23/19 15:59 Vancomycin HCl 1 gm/Dextrose 275 ml @ 183.708 mls/hr Q12H IVPB 05/24/19 17:00 05/29/19 16:59 05/25/19 05:24 Vj Urrutia MD May 25, 2019 06:39
--- NOTE | 2019-05-25 07:19 | NUR ---
NURSE NOTES: Received pt from [facility] ins table condition with no cardiopulmonary distress noted. Pt is obtunded, trache to vent, portex 7 AC 16 TV600 FiO2 30% Peep5. GT noted running Vital AF 1.2 at 60cc/hr. F/C noted draining yellow urine. Skin alterations noted. Pt has a R wrist 20g IV. Bed is in lowest position, alarm on, side rails up x 3, call light within reach. Will continue to monitor pt.
--- NOTE | 2019-05-25 07:19 | NUR ---
HAND-OFF: Report given to saturnino saha.
[2019-05-25 08:13] VITALS: BP 122/71
[2019-05-25] MEDS: Levemir Flexpen SUBQ SCH ×2 (09:12→20:30)
--- NOTE | 2019-05-25 09:15 | Pulmonolgy Critical Care Note ---
Critical Care - Asmt/Plan Problems: (1) Acute and chronic respiratory failure (2) Septic shock (3) Multiple organ failure (4) Feeding by G-tube (5) Chronic anoxic encephalopathy (6) Decubitus skin ulcer (7) History of sudden cardiac arrest (8) Sepsis (9) ATN (acute tubular necrosis) Respiratory: monitor respiratory rate, adjust FIO2, CXR Cardiac: continue to monitor HR/BP Renal: F/U I&O, keep IV fluid, check electrolytes Infectious Disease: check cultures Gastrointestinal: continue feedings/current rate Endocrine: monitor blood sugar Hematologic: monitor H/H, transfuse if hgb<8.5 Neurologic: PRN Ativan, PRN Morphine, keep patient comfortable Prophylaxis: Heparin Time Spent (Minutes): 40 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, 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 with: nurses, consultants, correctional counselor/case managerlegal services manager - Objective Last 24 Hour Vital Signs Date Time Temp Pulse Resp B/P (MAP) Pulse Ox O2 Delivery O2 Flow Rate FiO2 05/25/19 08:13 96.8 77 16 122/71 (88) 99 05/25/19 07:00 70 16 30 05/25/19 05:29 73 16 30 05/25/19 04:00 30 05/25/19 04:00 76 05/25/19 04:00 97.2 76 16 107/71 (83) 99 05/25/19 04:00 Mechanical Ventilator 05/25/19 02:50 77 18 30 05/25/19 01:08 80 16 30 05/25/19 00:00 Mechanical Ventilator 05/25/19 00:00 98.4 77 17 101/61 (74) 98 05/25/19 00:00 30 05/24/19 23:38 77 05/24/19 22:47 79 16 30 05/24/19 21:25 72 16 30 05/24/19 20:00 30 05/24/19 20:00 98.2 84 16 112/63 (79) 100 05/24/19 20:00 Mechanical Ventilator 05/24/19 19:24 75 22 30 05/24/19 19:04 73 05/24/19 17:00 87 24 30 05/24/19 16:00 97.8 89 17 111/71 (84) 98 05/24/19 16:00 30 05/24/19 15:45 84 05/24/19 15:27 Mechanical Ventilator 05/24/19 15:07 76 19 30 05/24/19 13:18 70 16 30 05/24/19 12:30 70 05/24/19 12:00 30 05/24/19 12:00 Mechanical Ventilator 05/24/19 12:00 98.1 72 16 97/63 (74) 100 05/24/19 11:14 73 16 30 05/24/19 10:00 80 16 123/70 (87) 100 Status: obtunded Condition: critical HEENT: atraumatic Lungs: clear Heart: HR/BP stable Abdomen: soft Extremities: no C/C/E, edema Micro: Microbiology Date/Time Source Procedure Growth Status 05/23/19 11:15 Blood Blood Culture - Preliminary NO GROWTH AFTER 24 HOURS Resulted 05/23/19 11:05 Blood Blood Culture - Preliminary NO GROWTH AFTER 24 HOURS Resulted 05/23/19 14:00 Sputum Induced Gram Stain - Final Resulted 05/23/19 14:00 Sputum Culture - Preliminary Gram Negative Bacillus 1 Usual Upper Respiratory Uyen Resulted Accucheck: 165 Critical Care - Subjective ROS Limited/Unobtainable: No Condition: critical EKG Rhythm: Sinus Rhythm FI02: 30 Vent Support Breath Rate: 16 Vent Support Mode: AC Vent Tidal Volume: 600 Sputum Amount: Moderate PEEP: 5.0 PIP: 36 Tube Feeding Amount: 60 I&O: Intake and Output 05/24/19 05/25/19 18:59 06:59 Intake Total 1201.7603 ml 1732.781 ml Output Total 1600 ml 900 ml Balance -398.2397 ml 832.781 ml Intake Free Water 50 ml 180 ml IV Total 431.7603 ml 772.781 ml Tube Feeding 720 ml 780 ml Output Urine Total 1600 ml 900 ml # Bowel Movements 2 2 Labs: Laboratory Tests Test 05/25/19 04:22 White Blood Count 13.2 K/UL (4.8-10.8) H Red Blood Count 3.44 M/UL (4.20-5.40) L Hemoglobin 9.0 G/DL (12.0-16.0) L Hematocrit 29.0 % (37.0-47.0) L Mean Corpuscular Volume 84 FL (80-99) Mean Corpuscular Hemoglobin 26.2 PG (27.0-31.0) L Mean Corpuscular Hemoglobin Concent 31.2 G/DL (32.0-36.0) L Red Cell Distribution Width 17.6 % (11.6-14.8) H Platelet Count 385 K/UL (150-450) Mean Platelet Volume 6.1 FL (6.5-10.1) L Neutrophils (%) (Auto) 82.0 % (45.0-75.0) H Lymphocytes (%) (Auto) 13.9 % (20.0-45.0) L Monocytes (%) (Auto) 2.5 % (1.0-10.0) Eosinophils (%) (Auto) 1.2 % (0.0-3.0) Basophils (%) (Auto) 0.5 % (0.0-2.0) Sodium Level 149 MMOL/L (136-145) H Potassium Level 3.7 MMOL/L (3.5-5.1) Chloride Level 114 MMOL/L (98-107) H Carbon Dioxide Level 26 MMOL/L (21-32) Anion Gap 9 mmol/L (5-15) Blood Urea Nitrogen 14 mg/dL (7-18) Creatinine 0.3 MG/DL (0.55-1.30) L Estimat Glomerular Filtration Rate > 60 mL/min (>60) Glucose Level 160 MG/DL (74-106) H Calcium Level 10.7 MG/DL (8.5-10.1) H Phosphorus Level 2.2 MG/DL (2.5-4.9) L Magnesium Level 2.3 MG/DL (1.8-2.4) Total Bilirubin 0.1 MG/DL (0.2-1.0) L Aspartate Amino Transf (AST/SGOT) 44 U/L (15-37) H Alanine Aminotransferase (ALT/SGPT) 74 U/L (12-78) Alkaline Phosphatase 164 U/L (46-116) H Total Protein 6.6 G/DL (6.4-8.2) Albumin 1.8 G/DL (3.4-5.0) L Globulin 4.8 g/dL Albumin/Globulin Ratio 0.4 (1.0-2.7) L Rula Corrigan MD May 25, 2019 09:15
[2019-05-25] MEDS: Heparin 5000 units/ml inj SUBQ SCH ×2 (09:16→20:35)
--- NOTE | 2019-05-25 09:55 | NUR ---
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 UNCONTROLLED TYPE 2 DIABETES VS: BP 122/71, P 77, T 96.8, RR 16, SpO2 99 on VENT AC 16, FiO2 30, PEEP 5.0, TV 600 NA 149, CR 0.3, GLUCOSE 160, WBC 13.2, RBC 3.44, H&H 9.0/29.0 IS:HEPARIN SUBQ LEVEMIR SUBQ NOVOLOG SUBQ VANCOMYCIN 275ml IVPB ERTAPENEM 55ml IV D5W x1L IV SDU STATUS
--- NOTE | 2019-05-25 11:24 | NUR ---
*-* INSURANCE *-* ALL CLINICALS AND REVIEWS HAVE BEEN FAXED TO: [employer] S/W ИРИНА, AWARE OF THIS ADMISSION NCM: ИРИНА KEARNEY P- [phone] F- [phone]....REVIEW/CLINICAL
[2019-05-25 12:00] VITALS: BP 106/66
--- NOTE | 2019-05-25 12:19 | Internal Med Progress Note ---
Subjective Date of Service: May 25, 2019 Physician Name Chase Sweeney Attending Physician Mainor Newsome MD Current Medications Medications (Trade) Dose Ordered Sig/Lavon Route PRN Reason Start Time Stop Time Status Last Admin Dose Admin Acetaminophen (Tylenol) 650 mg Q4H PRN ORAL FEVER (temp> 100.5F) 05/19/19 15:30 06/18/19 15:29 Calcitonin [place] (Miacalcin) 1 sprays DAILY NASAL 05/25/19 09:00 06/24/19 08:59 05/25/19 09:10 Dextrose 1,000 ml @ 30 mls/hr Q24H IV 05/24/19 12:00 06/23/19 11:59 05/24/19 12:15 Ertapenem 1 gm/ Sodium Chloride 55 ml @ 110 mls/hr Q24H IV 05/24/19 12:00 05/29/19 11:59 05/24/19 12:20 Heparin Sodium (Porcine) (Heparin 5000 units/ml) 5,000 units EVERY 12 HOURS SUBQ 05/24/19 21:00 06/23/19 20:59 05/25/19 09:16 Insulin Aspart (NovoLOG) EVERY 6 HOURS SUBQ 05/25/19 06:00 06/24/19 05:59 05/25/19 05:26 Insulin Aspart (NovoLOG) 6 units EVERY 6 HOURS SUBQ 05/25/19 06:00 06/24/19 05:59 05/25/19 05:26 Insulin Detemir (Levemir) 24 units Q12HR SUBQ 05/24/19 21:00 06/23/19 20:59 05/25/19 09:12 Lorazepam (Ativan 2mg/ml 1ml) 2 mg Q2H PRN IV For Anxiety 05/19/19 15:30 05/26/19 15:29 Morphine Sulfate (Morphine Sulfate) 4 mg Q4H PRN IVP Severe Pain (Pain Scale 7-10) 05/24/19 12:00 05/31/19 11:59 Sodium Hypochlorite (Dakin's Quarter Strength) 1 applic BEDTIME TOPIC 05/24/19 21:00 06/23/19 20:59 05/24/19 20:25 Vancomycin HCl (Vanco rx to dose) 1 ea DAILY PRN MISC Per rx protocol 05/24/19 16:00 06/23/19 15:59 Vancomycin HCl 1 gm/Dextrose 275 ml @ 183.708 mls/hr Q12H IVPB 05/24/19 17:00 05/29/19 16:59 05/25/19 05:24 Allergies: Coded Allergies: DIPHENHYDRAMINE (Verified Allergy, Unknown, 02/24/19) FLUPHENAZINE (Verified Allergy, Unknown, 02/24/19) ROS Limited/Unobtainable: Yes Subjective 69 YO M admitted with respiratory failure and pneumonia. Now sepsis. Intubated. Cover for Int Med-Dr Newsome. GERTRUDIS Objective Last Vital Signs Date Time Temp Pulse Resp B/P (MAP) Pulse Ox O2 Delivery O2 Flow Rate FiO2 05/25/19 11:10 72 16 30 05/25/19 08:13 96.8 122/71 (88) 99 05/25/19 04:00 Mechanical Ventilator 05/20/19 00:00 70.0 Laboratory Tests Test 05/25/19 04:22 White Blood Count 13.2 K/UL (4.8-10.8) H Red Blood Count 3.44 M/UL (4.20-5.40) L Hemoglobin 9.0 G/DL (12.0-16.0) L Hematocrit 29.0 % (37.0-47.0) L Mean Corpuscular Volume 84 FL (80-99) Mean Corpuscular Hemoglobin 26.2 PG (27.0-31.0) L Mean Corpuscular Hemoglobin Concent 31.2 G/DL (32.0-36.0) L Red Cell Distribution Width 17.6 % (11.6-14.8) H Platelet Count 385 K/UL (150-450) Mean Platelet Volume 6.1 FL (6.5-10.1) L Neutrophils (%) (Auto) 82.0 % (45.0-75.0) H Lymphocytes (%) (Auto) 13.9 % (20.0-45.0) L Monocytes (%) (Auto) 2.5 % (1.0-10.0) Eosinophils (%) (Auto) 1.2 % (0.0-3.0) Basophils (%) (Auto) 0.5 % (0.0-2.0) Sodium Level 149 MMOL/L (136-145) H Potassium Level 3.7 MMOL/L (3.5-5.1) Chloride Level 114 MMOL/L (98-107) H Carbon Dioxide Level 26 MMOL/L (21-32) Anion Gap 9 mmol/L (5-15) Blood Urea Nitrogen 14 mg/dL (7-18) Creatinine 0.3 MG/DL (0.55-1.30) L Estimat Glomerular Filtration Rate > 60 mL/min (>60) Glucose Level 160 MG/DL (74-106) H Calcium Level 10.7 MG/DL (8.5-10.1) H Phosphorus Level 2.2 MG/DL (2.5-4.9) L Magnesium Level 2.3 MG/DL (1.8-2.4) Total Bilirubin 0.1 MG/DL (0.2-1.0) L Aspartate Amino Transf (AST/SGOT) 44 U/L (15-37) H Alanine Aminotransferase (ALT/SGPT) 74 U/L (12-78) Alkaline Phosphatase 164 U/L (46-116) H Total Protein 6.6 G/DL (6.4-8.2) Albumin 1.8 G/DL (3.4-5.0) L Globulin 4.8 g/dL Albumin/Globulin Ratio 0.4 (1.0-2.7) L Microbiology Date/Time Source Procedure Growth Status 05/23/19 11:15 Blood Blood Culture - Preliminary NO GROWTH AFTER 24 HOURS Resulted 05/23/19 11:05 Blood Blood Culture - Preliminary NO GROWTH AFTER 24 HOURS Resulted 05/23/19 14:00 Sputum Induced Gram Stain - Final Resulted 05/23/19 14:00 Sputum Culture - Preliminary Gram Negative Bacillus 1 Usual Upper Respiratory Uyen Resulted Intake and Output 05/24/19 05/25/19 19:00 07:00 Intake Total 1417.9683 ml 1489.073 ml Output Total 1420 ml 900 ml Balance -2.0317 ml 589.073 ml Intake Free Water 50 ml 180 ml IV Total 587.9683 ml 589.073 ml Tube Feeding 780 ml 720 ml Output Urine Total 1420 ml 900 ml # Bowel Movements 2 2 Objective PHYSICAL EXAMINATION: GENERAL: The patient is awake, responsive to painful stimuli with open her eyes. HEAD AND NECK: Pupils are reactive to light, anicteric. Neck was supple. Tracheostomy site is intact. LUNGS: Mech Vent; Good air entry. No wheezing or rales. Mechanical breath sounds. HEART: Reveals S1, S2. Regular rhythm. No gallops. ABDOMEN: Soft, nondistended, and nontender. Positive bowel sounds. Status post, the patient has PEG, site is intact. RECTAL: Refused and deferred. GENITOURINARY: Refused and deferred. BACK: Has a sacral decubitus ulcer, stage IV with necrotic tissue, foul smell. EXTREMITIES: No cyanosis, clubbing, or edema. Contracted lower extremity was noted as well as upper extremity. NEUROLOGIC: Limited secondary to the patient's status, but the patient is unable to move the extremities. Assessment/Plan Assessment/Plan ASSESSMENT: 1. Sepsis secondary to pneumonia as well as infected decubitus ulcer. 2. Hypotension, most likely secondary to the sepsis and septic shock. 3. Hypertension. 4. Dyslipidemia. 5. Acute on chronic respiratory failure. 6. History of cardiac arrest with anoxic brain injury. 7. COPD. 8. Status post trach and PEG. 9. Infected sacral decubitus ulcer, stage IV, present on admission. PLAN: 1. Admit the patient to ICU. 2. At this time, code status is Full Code. 3. sepsis=ESBL Proteus Mirabilis. antibiotics= vancomycin and ertapenem. See ID recs 4. Pneumonia/respiratory failure. Discussed case with Dr. Corrigan from Pulmonary Critical Care 5. D/W Dr. Chadwick Keith from Infectious Disease and Dr. Niall Levy from Cardiology. Chase Sweeney MD May 25, 2019 12:19
--- NOTE | 2019-05-25 12:22 | Cardiac Electrophysiology PN ---
Assessment/Plan Assessment/Plan 1. Septic and hypovolemic shock with white count of 20,000 with multiple decubitus ulcers. The patient is getting d5W at 75cc/hr and IV antibiotic. Off pressors. Echo EF 65% 2. Ventilator-dependent respiratory failure, status post tracheostomy. 3. Dysphagia, status post PEG placement. 4. Encephalopathy. 5. Chronic decubitus ulcers. Sacral debridement per Dr Arreola 6. Dehydration and hypernatremia. JOLYNN RN Subjective Subjective In SR. DNR. No new events Objective Last 24 Hour Vital Signs Date Time Temp Pulse Resp B/P (MAP) Pulse Ox O2 Delivery O2 Flow Rate FiO2 05/25/19 11:10 72 16 30 05/25/19 09:24 74 16 30 05/25/19 08:13 96.8 77 16 122/71 (88) 99 05/25/19 07:53 69 05/25/19 07:00 70 16 30 05/25/19 05:29 73 16 30 05/25/19 04:00 30 05/25/19 04:00 76 05/25/19 04:00 97.2 76 16 107/71 (83) 99 05/25/19 04:00 Mechanical Ventilator 05/25/19 02:50 77 18 30 05/25/19 01:08 80 16 30 05/25/19 00:00 Mechanical Ventilator 05/25/19 00:00 98.4 77 17 101/61 (74) 98 05/25/19 00:00 30 05/24/19 23:38 77 05/24/19 22:47 79 16 30 05/24/19 21:25 72 16 30 05/24/19 20:00 30 05/24/19 20:00 98.2 84 16 112/63 (79) 100 05/24/19 20:00 Mechanical Ventilator 05/24/19 19:24 75 22 30 05/24/19 19:04 73 05/24/19 17:00 87 24 30 05/24/19 16:00 97.8 89 17 111/71 (84) 98 05/24/19 16:00 30 05/24/19 15:45 84 05/24/19 15:27 Mechanical Ventilator 05/24/19 15:07 76 19 30 05/24/19 13:18 70 16 30 05/24/19 12:30 70 Intake and Output 05/24/19 05/25/19 19:00 07:00 Intake Total 1417.9683 ml 1489.073 ml Output Total 1420 ml 900 ml Balance -2.0317 ml 589.073 ml Intake Free Water 50 ml 180 ml IV Total 587.9683 ml 589.073 ml Tube Feeding 780 ml 720 ml Output Urine Total 1420 ml 900 ml # Bowel Movements 2 2 Laboratory Tests Test 05/25/19 04:22 White Blood Count 13.2 K/UL (4.8-10.8) H Red Blood Count 3.44 M/UL (4.20-5.40) L Hemoglobin 9.0 G/DL (12.0-16.0) L Hematocrit 29.0 % (37.0-47.0) L Mean Corpuscular Volume 84 FL (80-99) Mean Corpuscular Hemoglobin 26.2 PG (27.0-31.0) L Mean Corpuscular Hemoglobin Concent 31.2 G/DL (32.0-36.0) L Red Cell Distribution Width 17.6 % (11.6-14.8) H Platelet Count 385 K/UL (150-450) Mean Platelet Volume 6.1 FL (6.5-10.1) L Neutrophils (%) (Auto) 82.0 % (45.0-75.0) H Lymphocytes (%) (Auto) 13.9 % (20.0-45.0) L Monocytes (%) (Auto) 2.5 % (1.0-10.0) Eosinophils (%) (Auto) 1.2 % (0.0-3.0) Basophils (%) (Auto) 0.5 % (0.0-2.0) Sodium Level 149 MMOL/L (136-145) H Potassium Level 3.7 MMOL/L (3.5-5.1) Chloride Level 114 MMOL/L (98-107) H Carbon Dioxide Level 26 MMOL/L (21-32) Anion Gap 9 mmol/L (5-15) Blood Urea Nitrogen 14 mg/dL (7-18) Creatinine 0.3 MG/DL (0.55-1.30) L Estimat Glomerular Filtration Rate > 60 mL/min (>60) Glucose Level 160 MG/DL (74-106) H Calcium Level 10.7 MG/DL (8.5-10.1) H Phosphorus Level 2.2 MG/DL (2.5-4.9) L Magnesium Level 2.3 MG/DL (1.8-2.4) Total Bilirubin 0.1 MG/DL (0.2-1.0) L Aspartate Amino Transf (AST/SGOT) 44 U/L (15-37) H Alanine Aminotransferase (ALT/SGPT) 74 U/L (12-78) Alkaline Phosphatase 164 U/L (46-116) H Total Protein 6.6 G/DL (6.4-8.2) Albumin 1.8 G/DL (3.4-5.0) L Globulin 4.8 g/dL Albumin/Globulin Ratio 0.4 (1.0-2.7) L Microbiology Date/Time Source Procedure Growth Status 05/23/19 11:15 Blood Blood Culture - Preliminary NO GROWTH AFTER 24 HOURS Resulted 05/23/19 11:05 Blood Blood Culture - Preliminary NO GROWTH AFTER 24 HOURS Resulted 05/23/19 14:00 Sputum Induced Gram Stain - Final Resulted 05/23/19 14:00 Sputum Culture - Preliminary Gram Negative Bacillus 1 Usual Upper Respiratory Uyen Resulted Objective HEAD AND NECK: No JVD. Status post tracheostomy. LUNGS: Coarse rhonchi. CARDIOVASCULAR: Regular S1 and S2 with no gallop. ABDOMEN: Status post G-tube. EXTREMITIES/SKIN: She has ulcers and sacral decubitus. Niall Levy MD May 25, 2019 12:22
[2019-05-25] MEDS ORDERED: NS 275ml ONE ×2 (12:28)
[2019-05-25] MEDS ORDERED: Tubing IV Secondary IV ONE (12:28)
[2019-05-25] MEDS: Ertapenem 1gm ivpb (q24h) IV SCH ×2 (12:52)
--- NOTE | 2019-05-25 13:36 | NUR ---
Social Service Note Follow up call placed to Public Guardian Chadwick [phone] as to discuss of the court regarding removing vent support. Awaiting return call.
--- NOTE | 2019-05-25 13:43 | Surgery Progress Note ---
Surgery Progress Note Objective Last 24 Hour Vital Signs Date Time Temp Pulse Resp B/P (MAP) Pulse Ox O2 Delivery O2 Flow Rate FiO2 05/25/19 13:14 70 16 30 05/25/19 12:00 97.9 68 16 106/66 (79) 100 05/25/19 12:00 Mechanical Ventilator 05/25/19 12:00 30 05/25/19 11:10 72 16 30 05/25/19 09:24 74 16 30 05/25/19 08:13 96.8 77 16 122/71 (88) 99 05/25/19 08:00 Mechanical Ventilator 05/25/19 08:00 30 05/25/19 07:53 69 05/25/19 07:00 70 16 30 05/25/19 05:29 73 16 30 05/25/19 04:00 30 05/25/19 04:00 76 05/25/19 04:00 97.2 76 16 107/71 (83) 99 05/25/19 04:00 Mechanical Ventilator 05/25/19 02:50 77 18 30 05/25/19 01:08 80 16 30 05/25/19 00:00 Mechanical Ventilator 05/25/19 00:00 98.4 77 17 101/61 (74) 98 05/25/19 00:00 30 05/24/19 23:38 77 05/24/19 22:47 79 16 30 05/24/19 21:25 72 16 30 05/24/19 20:00 30 05/24/19 20:00 98.2 84 16 112/63 (79) 100 05/24/19 20:00 Mechanical Ventilator 05/24/19 19:24 75 22 30 05/24/19 19:04 73 05/24/19 17:00 87 24 30 05/24/19 16:00 97.8 89 17 111/71 (84) 98 05/24/19 16:00 30 05/24/19 15:45 84 05/24/19 15:27 Mechanical Ventilator 05/24/19 15:07 76 19 30 I&O Intake and Output 05/24/19 05/25/19 19:00 07:00 Intake Total 1417.9683 ml 1489.073 ml Output Total 1420 ml 900 ml Balance -2.0317 ml 589.073 ml Intake Free Water 50 ml 180 ml IV Total 587.9683 ml 589.073 ml Tube Feeding 780 ml 720 ml Output Urine Total 1420 ml 900 ml # Bowel Movements 2 2 Dressing: saturated Wound: other Drains: other Cardiovascular: RSR Respiratory: decreased breath sounds Abdomen: soft, present bowel sounds Extremities: no cyanosis Laboratory Tests Test 05/25/19 04:22 White Blood Count 13.2 K/UL (4.8-10.8) H Red Blood Count 3.44 M/UL (4.20-5.40) L Hemoglobin 9.0 G/DL (12.0-16.0) L Hematocrit 29.0 % (37.0-47.0) L Mean Corpuscular Volume 84 FL (80-99) Mean Corpuscular Hemoglobin 26.2 PG (27.0-31.0) L Mean Corpuscular Hemoglobin Concent 31.2 G/DL (32.0-36.0) L Red Cell Distribution Width 17.6 % (11.6-14.8) H Platelet Count 385 K/UL (150-450) Mean Platelet Volume 6.1 FL (6.5-10.1) L Neutrophils (%) (Auto) 82.0 % (45.0-75.0) H Lymphocytes (%) (Auto) 13.9 % (20.0-45.0) L Monocytes (%) (Auto) 2.5 % (1.0-10.0) Eosinophils (%) (Auto) 1.2 % (0.0-3.0) Basophils (%) (Auto) 0.5 % (0.0-2.0) Sodium Level 149 MMOL/L (136-145) H Potassium Level 3.7 MMOL/L (3.5-5.1) Chloride Level 114 MMOL/L (98-107) H Carbon Dioxide Level 26 MMOL/L (21-32) Anion Gap 9 mmol/L (5-15) Blood Urea Nitrogen 14 mg/dL (7-18) Creatinine 0.3 MG/DL (0.55-1.30) L Estimat Glomerular Filtration Rate > 60 mL/min (>60) Glucose Level 160 MG/DL (74-106) H Calcium Level 10.7 MG/DL (8.5-10.1) H Phosphorus Level 2.2 MG/DL (2.5-4.9) L Magnesium Level 2.3 MG/DL (1.8-2.4) Total Bilirubin 0.1 MG/DL (0.2-1.0) L Aspartate Amino Transf (AST/SGOT) 44 U/L (15-37) H Alanine Aminotransferase (ALT/SGPT) 74 U/L (12-78) Alkaline Phosphatase 164 U/L (46-116) H Total Protein 6.6 G/DL (6.4-8.2) Albumin 1.8 G/DL (3.4-5.0) L Globulin 4.8 g/dL Albumin/Globulin Ratio 0.4 (1.0-2.7) L Plan Problems: (1) Septic shock Assessment & Plan: fever, leukocytosis, tachycardia ill appearing downgraded on IV Abx as per ID poor prognosis DNR/DNI will follow with recs trends labs (2) Multiple organ failure (3) MDRO (multiple drug resistant organisms) resistance (4) Severe anemia (5) Feeding by G-tube (6) Chronic respiratory failure (7) Hypercalcemia (8) Urinary tract infection (9) Chronic anoxic encephalopathy (10) Decubitus skin ulcer Assessment & Plan: Pt presented on admission with multiple pressure injuries: L earlobe grossly malodorous and necrotic with partial loss of earlobe.Ear canal and posterior to earlobe noted to be purple/red.(L)6cm x (W)1.5cm.Smal amt brown exudate noted. Dry eschar noted to R earlobe (L)1cm. Full thickness Sacral pressure with undermining.100% soft necrosis noted to base of wound and undermined borders. Additional soft necrosis noted to edges and periwound. Wound is malodorous. Small amt black exudate noted.(L)(L)7.5cm x (W)9.7cm. Unstageable pressure injury L heel .Base of wound fluctuant and purple in centre with surrounding dry eschar (L)3.4cm x (W)3.2cm.Non-blanchable erythema periwound. R heel dry and blanchable. Skin Assessed under collar of trach and no areas of concerns noted. Tx.Plan: Cleanse L earlobe with Dakin's 0.25% nataly. Apply Dakin's 0.25% moist [id number] and cover with Optifoam drsg Twice Daily and PRN. Cleanse Sacral area with Dakin's 0.25% Nataly.Loosely pack wound with Dakin's moist Kerlix. Apply Triad Periwound. Cover with Optifoam drsg. Twice Daily and prn. Apply Betadine to L heel. Cover with Optifoam drsg. Change every 3 days and prn. Reposition at least every 2hours or as tolerated. Off-load heels with pillow. if improves and stable will need debridement at some point either inpatient or outpatient (11) History of sudden cardiac arrest (12) Sepsis (13) ATN (acute tubular necrosis) (14) Acute and chronic respiratory failure Levon Nunes May 25, 2019 13:43
[2019-05-25 16:00] VITALS: BP 110/72
--- NOTE | 2019-05-25 16:59 | Nephrology Progress Note ---
Assessment/Plan Problem List: (1) Hypercalcemia (2) Chronic anoxic encephalopathy (3) Acute and chronic respiratory failure (4) Severe anemia Assessment Electrolyte imbalance: High Na and Low K Severe Hypercalcemia Severe HypoAlbuminemia DM Others: Acute and chronic respiratory failure Septic shock Multiple organ failure Feeding by G-tube Chronic anoxic encephalopathy Decubitus skin ulcer History of sudden cardiac arrest ATN (acute tubular necrosis) and Oliguria Plan Plan; NOW DNI DNR K Phos previously: Aredia 90 mg on 05/21 Nasal calcitonin start today 05/23 D5W 75 cc / h K Phos IV monitor Lytes and Ca and Phos per orders discussed with RN Subjective ROS Limited/Unobtainable: Yes Objective Objective Last 24 Hour Vital Signs Date Time Temp Pulse Resp B/P (MAP) Pulse Ox O2 Delivery O2 Flow Rate FiO2 05/25/19 16:00 74 05/25/19 16:00 Mechanical Ventilator 05/25/19 16:00 30 05/25/19 16:00 97.3 71 16 110/72 (85) 100 05/25/19 15:15 68 18 30 05/25/19 13:14 70 16 30 05/25/19 12:00 97.9 68 16 106/66 (79) 100 05/25/19 12:00 Mechanical Ventilator 05/25/19 12:00 30 05/25/19 11:51 72 05/25/19 11:10 72 16 30 05/25/19 09:24 74 16 30 05/25/19 08:13 96.8 77 16 122/71 (88) 99 05/25/19 08:00 Mechanical Ventilator 05/25/19 08:00 30 05/25/19 07:53 69 05/25/19 07:00 70 16 30 05/25/19 05:29 73 16 30 05/25/19 04:00 30 05/25/19 04:00 76 05/25/19 04:00 97.2 76 16 107/71 (83) 99 05/25/19 04:00 Mechanical Ventilator 05/25/19 02:50 77 18 30 05/25/19 01:08 80 16 30 05/25/19 00:00 Mechanical Ventilator 05/25/19 00:00 98.4 77 17 101/61 (74) 98 05/25/19 00:00 30 05/24/19 23:38 77 05/24/19 22:47 79 16 30 05/24/19 21:25 72 16 30 05/24/19 20:00 30 05/24/19 20:00 98.2 84 16 112/63 (79) 100 05/24/19 20:00 Mechanical Ventilator 05/24/19 19:24 75 22 30 05/24/19 19:04 73 05/24/19 17:00 87 24 30 Intake and Output 05/24/19 05/25/19 19:00 07:00 Intake Total 1417.9683 ml 1489.073 ml Output Total 1420 ml 900 ml Balance -2.0317 ml 589.073 ml Intake Free Water 50 ml 180 ml IV Total 587.9683 ml 589.073 ml Tube Feeding 780 ml 720 ml Output Urine Total 1420 ml 900 ml # Bowel Movements 2 2 Laboratory Tests 05/25/19 04:22: White Blood Count 13.2H, Red Blood Count 3.44L, Hemoglobin 9.0L, Hematocrit 29.0L, Mean Corpuscular Volume 84, Mean Corpuscular Hemoglobin 26.2L, Mean Corpuscular Hemoglobin Concent 31.2L, Red Cell Distribution Width 17.6H, Platelet Count 385, Mean Platelet Volume 6.1L, Neutrophils (%) (Auto) 82.0H, Lymphocytes (%) (Auto) 13.9L, Monocytes (%) (Auto) 2.5, Eosinophils (%) (Auto) 1.2, Basophils (%) (Auto) 0.5, Sodium Level 149H, Potassium Level 3.7, Chloride Level 114H, Carbon Dioxide Level 26, Anion Gap 9, Blood Urea Nitrogen 14, Creatinine 0.3L, Estimat Glomerular Filtration Rate > 60, Glucose Level 160H, Calcium Level 10.7H, Phosphorus Level 2.2L, Magnesium Level 2.3, Total Bilirubin 0.1L, Aspartate Amino Transf (AST/SGOT) 44H, Alanine Aminotransferase (ALT/SGPT) 74, Alkaline Phosphatase 164H, Total Protein 6.6, Albumin 1.8L, Globulin 4.8, Albumin/Globulin Ratio 0.4L Height (Feet): 5 Height (Inches): 3.00 Weight (Pounds): 148 General Appearance: no apparent distress, lethargic Cardiovascular: normal rate Respiratory/Chest: decreased breath sounds Abdomen: distended Objective no change Fouladian,Palomo MD May 25, 2019 16:59
[2019-05-25] MEDS ORDERED: Potassium Phosphate 20 MM in NS 275 ML IV ONE (18:00)
--- NOTE | 2019-05-25 18:13 | Infectious Diseases Prog Note ---
Assessment/Plan Assessment/Plan 69 yo female with PMHx of HTN, HLD chronic respiratory failure s/p PEG and Trach who was sen to the ED from her [facility] for SOB. Sepsis ; improving UA pos UCx 05/19/19 - Mixed leslee Leukocytosis of 19; improving Blood Cx 05/19/19 - Proteus x 2 sets ESBL; 05/23 Bcx NTD Afebrile Respiratory distress , Probable PNA On Vent -05/23 CXR: Dense retrocardiac opacity noted. Heart size is stable. Tracheostomy again noted. Mild vascular congestion suspected currently. -sp cx GNR CXR - Left sided consolidation. No Fever Elevated LFTs Sacral ulcer Need debridement Ear wound healing chronic respiratory failure s/p trach/vent PEG schizoaffective disorder Plan: - D/c Vancomycin #6 pending sp cx -Cont Ertapenem #2 for ESBL bacteremia and PNA -05/24 SP Zosyn #5 -Monitor CBC/CMP, temperatures -f/u BCxx 2, Sp cx Thank you for this consult. We will continue to follow the patient during this hospitalization. Subjective Allergies: Coded Allergies: DIPHENHYDRAMINE (Verified Allergy, Unknown, 02/24/19) FLUPHENAZINE (Verified Allergy, Unknown, 02/24/19) Subjective afebrile wbc improving repeat Bcx NTD Objective Vital Signs Last 24 Hour Vital Signs Date Time Temp Pulse Resp B/P (MAP) Pulse Ox O2 Delivery O2 Flow Rate FiO2 05/25/19 16:00 74 05/25/19 16:00 Mechanical Ventilator 05/25/19 16:00 30 05/25/19 16:00 97.3 71 16 110/72 (85) 100 05/25/19 15:15 68 18 30 05/25/19 13:14 70 16 30 05/25/19 12:00 97.9 68 16 106/66 (79) 100 05/25/19 12:00 Mechanical Ventilator 05/25/19 12:00 30 05/25/19 11:51 72 05/25/19 11:10 72 16 30 05/25/19 09:24 74 16 30 05/25/19 08:13 96.8 77 16 122/71 (88) 99 05/25/19 08:00 Mechanical Ventilator 05/25/19 08:00 30 05/25/19 07:53 69 05/25/19 07:00 70 16 30 6/26/19 05:29 73 16 30 05/25/19 04:00 30 05/25/19 04:00 76 05/25/19 04:00 97.2 76 16 107/71 (83) 99 05/25/19 04:00 Mechanical Ventilator 05/25/19 02:50 77 18 30 05/25/19 01:08 80 16 30 05/25/19 00:00 Mechanical Ventilator 05/25/19 00:00 98.4 77 17 101/61 (74) 98 05/25/19 00:00 30 05/24/19 23:38 77 05/24/19 22:47 79 16 30 05/24/19 21:25 72 16 30 05/24/19 20:00 30 05/24/19 20:00 98.2 84 16 112/63 (79) 100 05/24/19 20:00 Mechanical Ventilator 05/24/19 19:24 75 22 30 05/24/19 19:04 73 Height (Feet): 5 Height (Inches): 3.00 Weight (Pounds): 148 Objective Gen: Not following, Trached on Vent HEENT: NCAT, MMM, PERRL LUNGS: Course B/L CARDS: RRR, S1, S2 ABD: Soft, NT, ND, + BS NEURO: Not verbal, No following SKIN: Warm/dry, No rashes, Sacral decub stage 4 Microbiology Date/Time Source Procedure Growth Status 05/23/19 11:15 Blood Blood Culture - Preliminary NO GROWTH AFTER 24 HOURS Resulted 05/23/19 11:05 Blood Blood Culture - Preliminary NO GROWTH AFTER 24 HOURS Resulted 05/23/19 14:00 Sputum Induced Gram Stain - Final Resulted 05/23/19 14:00 Sputum Culture - Preliminary Gram Negative Bacillus 1 Usual Upper Respiratory Leslee Resulted Laboratory Tests Test 05/25/19 04:22 White Blood Count 13.2 K/UL (4.8-10.8) H Red Blood Count 3.44 M/UL (4.20-5.40) L Hemoglobin 9.0 G/DL (12.0-16.0) L Hematocrit 29.0 % (37.0-47.0) L Mean Corpuscular Volume 84 FL (80-99) Mean Corpuscular Hemoglobin 26.2 PG (27.0-31.0) L Mean Corpuscular Hemoglobin Concent 31.2 G/DL (32.0-36.0) L Red Cell Distribution Width 17.6 % (11.6-14.8) H Platelet Count 385 K/UL (150-450) Mean Platelet Volume 6.1 FL (6.5-10.1) L Neutrophils (%) (Auto) 82.0 % (45.0-75.0) H Lymphocytes (%) (Auto) 13.9 % (20.0-45.0) L Monocytes (%) (Auto) 2.5 % (1.0-10.0) Eosinophils (%) (Auto) 1.2 % (0.0-3.0) Basophils (%) (Auto) 0.5 % (0.0-2.0) Sodium Level 149 MMOL/L (136-145) H Potassium Level 3.7 MMOL/L (3.5-5.1) Chloride Level 114 MMOL/L (98-107) H Carbon Dioxide Level 26 MMOL/L (21-32) Anion Gap 9 mmol/L (5-15) Blood Urea Nitrogen 14 mg/dL (7-18) Creatinine 0.3 MG/DL (0.55-1.30) L Estimat Glomerular Filtration Rate > 60 mL/min (>60) Glucose Level 160 MG/DL (74-106) H Calcium Level 10.7 MG/DL (8.5-10.1) H Phosphorus Level 2.2 MG/DL (2.5-4.9) L Magnesium Level 2.3 MG/DL (1.8-2.4) Total Bilirubin 0.1 MG/DL (0.2-1.0) L Aspartate Amino Transf (AST/SGOT) 44 U/L (15-37) H Alanine Aminotransferase (ALT/SGPT) 74 U/L (12-78) Alkaline Phosphatase 164 U/L (46-116) H Total Protein 6.6 G/DL (6.4-8.2) Albumin 1.8 G/DL (3.4-5.0) L Globulin 4.8 g/dL Albumin/Globulin Ratio 0.4 (1.0-2.7) L Current Medications Medications (Trade) Dose Ordered Sig/Lavon Route PRN Reason Start Time Stop Time Status Last Admin Dose Admin Acetaminophen (Tylenol) 650 mg Q4H PRN ORAL FEVER (temp> 100.5F) 05/19/19 15:30 06/18/19 15:29 Calcitonin Howard (Miacalcin) 1 sprays DAILY NASAL 05/25/19 09:00 06/24/19 08:59 05/25/19 09:10 Dextrose 1,000 ml @ 30 mls/hr Q24H IV 05/24/19 12:00 06/23/19 11:59 05/25/19 12:20 Ertapenem 1 gm/ Sodium Chloride 55 ml @ 110 mls/hr Q24H IV 05/24/19 12:00 05/29/19 11:59 05/25/19 12:52 Heparin Sodium (Porcine) (Heparin 5000 units/ml) 5,000 units EVERY 12 HOURS SUBQ 05/24/19 21:00 06/23/19 20:59 05/25/19 09:16 Insulin Aspart (NovoLOG) EVERY 6 HOURS SUBQ 05/25/19 06:00 06/24/19 05:59 05/25/19 17:21 Insulin Aspart (NovoLOG) 6 units EVERY 6 HOURS SUBQ 05/25/19 06:00 06/24/19 05:59 05/25/19 17:21 Insulin Detemir (Levemir) 24 units Q12HR SUBQ 05/24/19 21:00 06/23/19 20:59 05/25/19 09:12 Lorazepam (Ativan 2mg/ml 1ml) 2 mg Q2H PRN IV For Anxiety 05/19/19 15:30 05/26/19 15:29 Morphine Sulfate (Morphine Sulfate) 4 mg Q4H PRN IVP Severe Pain (Pain Scale 7-10) 05/24/19 12:00 05/31/19 11:59 Potassium Phosphate 20 mm/ Sodium Chloride 281.6667 ml @ 46.944 m... ONCE ONCE IV 05/25/19 18:00 05/25/19 23:59 05/25/19 18:05 Sodium Hypochlorite (Dakin's Quarter Strength) 1 applic BEDTIME TOPIC 05/24/19 21:00 06/23/19 20:59 05/24/19 20:25 Vancomycin HCl (Vanco rx to dose) 1 ea DAILY PRN MISC Per rx protocol 05/24/19 16:00 06/23/19 15:59 Vancomycin HCl 1 gm/Dextrose 275 ml @ 183.708 mls/hr Q12H IVPB 05/24/19 17:00 05/29/19 16:59 05/25/19 16:04 Renae Conteh M.D. May 25, 2019 18:13
--- NOTE | 2019-05-25 19:23 | NUR ---
RESPIRATORY NOTE: Pt received on vent settings of AC/VC 16, 600 VT, 30% FiO2, PEEP +5. Patient is trach dependent with a cuffed Portex 7 tracheostomy, secured with trach ties. Bilateral rhonchi breath sounds noted upon auscultation. Secretions were moderate, white, clear. Vent is plugged into red outlet. Alarms are on and audible. Ambubag present at bedside. Will continue to monitor.
--- NOTE | 2019-05-25 19:25 | NUR ---
NURSE NOTES: Report received from DB Ramírez. Observed pt lying in bed, awake, non-verbal. Pt appears calm and comfortable, no signs of pain noted at this time. Trach to vent, tolerating well current setting, AC 16, TV 600, FIO2 30%, PEEP 5, no signs of sob. GT intact and patent, running Vital AF at 60cc/hr. F/C intact and draining well. IV on R W 20G, intact and patent. Bed in the lowest position. Side rails up x3. Will continue to monitor.
--- NOTE | 2019-05-25 19:30 | NUR ---
HAND-OFF: Report given to DB Ge. Pt in stable condition.
[2019-05-25 20:00] VITALS: BP 108/74
[2019-05-25] MEDS: Dakin's 0.125% Soln (Quarter Strength) 16oz TOPIC SCH (20:36)
[2019-05-26] VITALS: BP 124/81
[2019-05-26] MEDS: NovoLOG Insulin Flexpen SUBQ SCH ×6 (00:02→12:35)
[2019-05-26 04:00] VITALS: BP 133/89
[2019-05-26 05:24] LABS: BASOPHILS % (AUTO) 2.2 % (0.0-2.0); EOSINOPHILS % (AUTO) 0.7 % (0.0-3.0); HEMATOCRIT 30.2 % (37.0-47.0); LYMPHOCYTES % (AUTO) 15.6 % (20.0-45.0); MEAN CORPUSCULAR VOLUME 87 FL (80-99); MONOCYTES % (AUTO) 4.2 % (1.0-10.0); NEUTROPHILS % (AUTO) 77.3 % (45.0-75.0); PLATELET COUNT 411 K/UL (150-450); RED BLOOD COUNT 3.46 M/UL (4.20-5.40); RED CELL DISTRIBUTION WIDTH 18.4 % (11.6-14.8); WHITE BLOOD COUNT 13.2 K/UL (4.8-10.8)
[2019-05-26 06:07] LABS: ALANINE AMINOTRANSFERASE 75 U/L (12-78); ALBUMIN 1.9 G/DL (3.4-5.0); ALBUMIN/GLOBULIN RATIO 0.4 (1.0-2.7); ALKALINE PHOSPHATASE 165 U/L (46-116); ANION GAP 18 mmol/L (5-15); ASPARTATE AMINO TRANSFERASE 54 U/L (15-37); BILIRUBIN,TOTAL < 0.1 MG/DL (0.2-1.0); BLOOD UREA NITROGEN 15 mg/dL (7-18); CALCIUM 11.1 MG/DL (8.5-10.1); CARBON DIOXIDE 18 MMOL/L (21-32); CHLORIDE 116 MMOL/L (98-107); CREATININE 0.5 MG/DL (0.55-1.30); PHOSPHORUS 2.6 MG/DL (2.5-4.9); POTASSIUM 4.1 MMOL/L (3.5-5.1); SODIUM 152 MMOL/L (136-145)
--- NOTE | 2019-05-26 07:15 | NUR ---
NURSE NOTES: REC,D BED SIDE REPORT FROM APRIL IMAGING TECHNICIAN OF NOC SHIFT. RECEIVED PT WITH HOB ELEVATED 45 DEGREE ,TRACH TO VENT OBTUNDED.DNR STATUS.PT TOLERATING WELL CURRENTS VENT SETTINGS AT THIS TIME.RENDERED TRACH CARE AND ORAL HYGIENE ,SX,D MOD AMT OF YELLOWISH COLOR. PT RECEIVING GTF VITAL A.F @ 60CC/HRS ,NO RESIDUAL NOTE AT THIS TIME.FULL BODY ASSESSMENT DONE.REPOSITIONED Q 2 HRS TO PROVIDE COMFORT AND TO PREVENT FURTHER SKIN BREAK DOWN.NO ACUTE DISTRESS NOTED AT THIS TIME. WILL CONT TO MONITOR.
--- NOTE | 2019-05-26 07:25 | NUR ---
HAND-OFF: Report given to DB Laura. No distress noted at this time.
[2019-05-26 08:00] VITALS: BP 118/63
--- NOTE | 2019-05-26 08:53 | NUR ---
Social Service Note GATO spoke with Chadwick PG [phone]. Terminal extubation is still pending court decision. Patient however can return to subacute awaiting decision from court. GATO requested a POLST indicating DNR/DNI, Comfort focus care/hospice with no return to acute hospital. Chadwick will discuss with his supervisor asbestos textile Sheeba Red [phone] and Kvng Avila [phone]. Will follow up.
--- NOTE | 2019-05-26 09:06 | NUR ---
PHOTOGRAPHY INSTRUCTORLOAN REVIEW OFFICER SI:SEPSIS . MULTIPLE ORGAN FAILURE . HYPERCALCEMIA VS: BP 133/89, P 66, T 97.7, SpO2 97 on VENT AC 16, TV 600, PEEP 5.0, FiO2 30 WBC 13.2, RBC 3.46, H&H 9.0/30.2, Na 152, CR 0.5, Ca 11.1, AST 54, Alk. Phos 165 IS:NOVOLOG SUBQ HEPARIN SUBQ ERTAPENEM 55ml D5 x1L IV SDU STATUS
--- NOTE | 2019-05-26 09:16 | NUR ---
RESPIRATORY NOTE: pt vent dependent, trached with portex 7 with no resp distress noted. trach is secured via trach tie/guard. vent settings are current, alarms are attached, set and audible. ambu bag at bedside. will cont to monitor
--- NOTE | 2019-05-26 09:58 | Cardiac Electrophysiology PN ---
Assessment/Plan Assessment/Plan 1. Septic and hypovolemic shock with white count of 20,000 with multiple decubitus ulcers. On D5W and IV antibiotic. Off pressors. Echo EF 65% 2. Ventilator-dependent respiratory failure, status post tracheostomy. 3. Dysphagia, status post PEG placement. 4. Encephalopathy. 5. Chronic decubitus ulcers. Sacral debridement per Dr Arreola 6. Dehydration and hypernatremia. JOLYNN RN Subjective Subjective In SR. DNR. No new events. On Vent via Trach. Objective Last 24 Hour Vital Signs Date Time Temp Pulse Resp B/P (MAP) Pulse Ox O2 Delivery O2 Flow Rate FiO2 05/26/19 09:14 95 16 30 05/26/19 08:00 97.7 83 16 118/63 (81) 97 05/26/19 07:50 66 16 30 05/26/19 07:32 69 05/26/19 05:02 84 17 30 05/26/19 04:00 30 05/26/19 04:00 66 05/26/19 04:00 Mechanical Ventilator 05/26/19 04:00 98.5 72 16 133/89 (104) 100 05/26/19 02:57 74 18 30 05/26/19 01:28 78 16 30 05/26/19 00:00 Mechanical Ventilator 05/26/19 00:00 99.0 79 16 124/81 (95) 100 05/26/19 00:00 30 05/26/19 00:00 77 05/25/19 23:28 74 16 30 05/25/19 21:27 75 16 30 05/25/19 20:00 30 05/25/19 20:00 Mechanical Ventilator 05/25/19 20:00 98.5 83 16 108/74 (85) 100 05/25/19 20:00 82 05/25/19 19:23 80 16 30 05/25/19 17:08 70 19 30 05/25/19 16:00 74 05/25/19 16:00 Mechanical Ventilator 05/25/19 16:00 30 05/25/19 16:00 97.3 71 16 110/72 (85) 100 05/25/19 15:15 68 18 30 05/25/19 13:14 70 16 30 05/25/19 12:00 97.9 68 16 106/66 (79) 100 05/25/19 12:00 Mechanical Ventilator 05/25/19 12:00 30 05/25/19 11:51 72 05/25/19 11:10 72 16 30 Intake and Output 05/25/19 05/26/19 18:59 06:59 Intake Total 1497.416 ml 1206.994 ml Output Total 1150 ml 1300 ml Balance 347.416 ml -93.006 ml Intake Free Water 100 ml 140 ml IV Total 677.416 ml 346.994 ml Tube Feeding 720 ml 720 ml Output Urine Total 1150 ml 1300 ml # Bowel Movements 2 Laboratory Tests Test 05/26/19 04:00 White Blood Count 13.2 K/UL (4.8-10.8) H Red Blood Count 3.46 M/UL (4.20-5.40) L Hemoglobin 9.0 G/DL (12.0-16.0) L Hematocrit 30.2 % (37.0-47.0) L Mean Corpuscular Volume 87 FL (80-99) Mean Corpuscular Hemoglobin 26.1 PG (27.0-31.0) L Mean Corpuscular Hemoglobin Concent 29.9 G/DL (32.0-36.0) L Red Cell Distribution Width 18.4 % (11.6-14.8) H Platelet Count 411 K/UL (150-450) Mean Platelet Volume 4.4 FL (6.5-10.1) L Neutrophils (%) (Auto) 77.3 % (45.0-75.0) H Lymphocytes (%) (Auto) 15.6 % (20.0-45.0) L Monocytes (%) (Auto) 4.2 % (1.0-10.0) Eosinophils (%) (Auto) 0.7 % (0.0-3.0) Basophils (%) (Auto) 2.2 % (0.0-2.0) H Sodium Level 152 MMOL/L (136-145) H Potassium Level 4.1 MMOL/L (3.5-5.1) Chloride Level 116 MMOL/L (98-107) H Carbon Dioxide Level 18 MMOL/L (21-32) L Anion Gap 18 mmol/L (5-15) H Blood Urea Nitrogen 15 mg/dL (7-18) Creatinine 0.5 MG/DL (0.55-1.30) #L Estimat Glomerular Filtration Rate > 60 mL/min (>60) Glucose Level 106 MG/DL (74-106) Calcium Level 11.1 MG/DL (8.5-10.1) H Phosphorus Level 2.6 MG/DL (2.5-4.9) Magnesium Level 2.4 MG/DL (1.8-2.4) Total Bilirubin < 0.1 MG/DL (0.2-1.0) L Aspartate Amino Transf (AST/SGOT) 54 U/L (15-37) H Alanine Aminotransferase (ALT/SGPT) 75 U/L (12-78) Alkaline Phosphatase 165 U/L (46-116) H Total Protein 6.9 G/DL (6.4-8.2) Albumin 1.9 G/DL (3.4-5.0) L Globulin 5.0 g/dL Albumin/Globulin Ratio 0.4 (1.0-2.7) L Microbiology Date/Time Source Procedure Growth Status 05/23/19 11:15 Blood Blood Culture - Preliminary NO GROWTH AFTER 48 HOURS Resulted 05/23/19 11:05 Blood Blood Culture - Preliminary NO GROWTH AFTER 48 HOURS Resulted 05/23/19 14:00 Sputum Induced Gram Stain - Final Resulted 05/23/19 14:00 Sputum Culture - Preliminary Gram Negative Bacillus 1 Gram Negative Bacillus 2 Usual Respiratory Uyen Resulted Objective HEAD AND NECK: No JVD. Status post tracheostomy. LUNGS: Coarse rhonchi. CARDIOVASCULAR: Regular S1 and S2 with no gallop. ABDOMEN: Status post G-tube. EXTREMITIES/SKIN: She sacral decubitus. Niall Levy MD May 26, 2019 09:58
[2019-05-26] MEDS: Heparin 5000 units/ml inj SUBQ SCH (10:13)
[2019-05-26] MEDS: Levemir Flexpen SUBQ SCH (10:15)
--- NOTE | 2019-05-26 10:38 | Infectious Diseases Prog Note ---
Assessment/Plan Assessment/Plan 69 yo female with PMHx of HTN, HLD chronic respiratory failure s/p PEG and Trach [facility]. Sepsis ; improving UA pos UCx 05/19/19 - Mixed leslee Leukocytosis of 19; improving Blood Cx 05/19/19 - Proteus x 2 sets ESBL; 05/23 Bcx NTD Afebrile Respiratory distress , Probable PNA On Vent -05/23 CXR: Dense retrocardiac opacity noted. Heart size is stable. Tracheostomy again noted. Mild vascular congestion suspected currently. -sp cx GNR CXR - Left sided consolidation. No Fever Elevated LFTs Sacral ulcer Need debridement Ear wound healing chronic respiratory failure s/p trach/vent PEG schizoaffective disorder Plan: -Cont Ertapenem #02/10 for ESBL bacteremia and PNA -05/25 SP IV vancomycin #6 -05/24 SP Zosyn #5 -Monitor CBC/CMP, temperatures -f/u BCxx 2, Sp cx Thank you for this consult. We will continue to follow the patient during this hospitalization. Subjective Allergies: Coded Allergies: DIPHENHYDRAMINE (Verified Allergy, Unknown, 02/24/19) FLUPHENAZINE (Verified Allergy, Unknown, 02/24/19) Subjective afebrile wbc improving repeat Bcx NTD Objective Vital Signs Last 24 Hour Vital Signs Date Time Temp Pulse Resp B/P (MAP) Pulse Ox O2 Delivery O2 Flow Rate FiO2 05/26/19 09:14 95 16 30 05/26/19 08:00 30 05/26/19 08:00 97.7 83 16 118/63 (81) 97 05/26/19 08:00 Mechanical Ventilator 05/26/19 07:50 66 16 30 05/26/19 07:32 69 05/26/19 05:02 84 17 30 05/26/19 04:00 30 05/26/19 04:00 66 05/26/19 04:00 Mechanical Ventilator 05/26/19 04:00 98.5 72 16 133/89 (104) 100 05/26/19 02:57 74 18 30 05/26/19 01:28 78 16 30 05/26/19 00:00 Mechanical Ventilator 05/26/19 00:00 99.0 79 16 124/81 (95) 100 05/26/19 00:00 30 05/26/19 00:00 77 6/26/19 23:28 74 16 30 05/25/19 21:27 75 16 30 05/25/19 20:00 30 05/25/19 20:00 Mechanical Ventilator 05/25/19 20:00 98.5 83 16 108/74 (85) 100 05/25/19 20:00 82 05/25/19 19:23 80 16 30 05/25/19 17:08 70 19 30 05/25/19 16:00 74 05/25/19 16:00 Mechanical Ventilator 05/25/19 16:00 30 05/25/19 16:00 97.3 71 16 110/72 (85) 100 05/25/19 15:15 68 18 30 05/25/19 13:14 70 16 30 05/25/19 12:00 97.9 68 16 106/66 (79) 100 05/25/19 12:00 Mechanical Ventilator 05/25/19 12:00 30 05/25/19 11:51 72 05/25/19 11:10 72 16 30 Height (Feet): 5 Height (Inches): 3.00 Weight (Pounds): 156 Objective Gen: Not following, Trached on Vent HEENT: NCAT, MMM, PERRL LUNGS: Course B/L CARDS: RRR, S1, S2 ABD: Soft, NT, ND, + BS NEURO: Not verbal, No following SKIN: Warm/dry, No rashes, Sacral decub stage 4 Microbiology Date/Time Source Procedure Growth Status 05/23/19 11:15 Blood Blood Culture - Preliminary NO GROWTH AFTER 48 HOURS Resulted 05/23/19 11:05 Blood Blood Culture - Preliminary NO GROWTH AFTER 48 HOURS Resulted 05/23/19 14:00 Sputum Induced Gram Stain - Final Resulted 05/23/19 14:00 Sputum Culture - Preliminary Gram Negative Bacillus 1 Gram Negative Bacillus 2 Usual Respiratory Leslee Resulted Laboratory Tests Test 05/26/19 04:00 White Blood Count 13.2 K/UL (4.8-10.8) H Red Blood Count 3.46 M/UL (4.20-5.40) L Hemoglobin 9.0 G/DL (12.0-16.0) L Hematocrit 30.2 % (37.0-47.0) L Mean Corpuscular Volume 87 FL (80-99) Mean Corpuscular Hemoglobin 26.1 PG (27.0-31.0) L Mean Corpuscular Hemoglobin Concent 29.9 G/DL (32.0-36.0) L Red Cell Distribution Width 18.4 % (11.6-14.8) H Platelet Count 411 K/UL (150-450) Mean Platelet Volume 4.4 FL (6.5-10.1) L Neutrophils (%) (Auto) 77.3 % (45.0-75.0) H Lymphocytes (%) (Auto) 15.6 % (20.0-45.0) L Monocytes (%) (Auto) 4.2 % (1.0-10.0) Eosinophils (%) (Auto) 0.7 % (0.0-3.0) Basophils (%) (Auto) 2.2 % (0.0-2.0) H Sodium Level 152 MMOL/L (136-145) H Potassium Level 4.1 MMOL/L (3.5-5.1) Chloride Level 116 MMOL/L (98-107) H Carbon Dioxide Level 18 MMOL/L (21-32) L Anion Gap 18 mmol/L (5-15) H Blood Urea Nitrogen 15 mg/dL (7-18) Creatinine 0.5 MG/DL (0.55-1.30) #L Estimat Glomerular Filtration Rate > 60 mL/min (>60) Glucose Level 106 MG/DL (74-106) Calcium Level 11.1 MG/DL (8.5-10.1) H Phosphorus Level 2.6 MG/DL (2.5-4.9) Magnesium Level 2.4 MG/DL (1.8-2.4) Total Bilirubin < 0.1 MG/DL (0.2-1.0) L Aspartate Amino Transf (AST/SGOT) 54 U/L (15-37) H Alanine Aminotransferase (ALT/SGPT) 75 U/L (12-78) Alkaline Phosphatase 165 U/L (46-116) H Total Protein 6.9 G/DL (6.4-8.2) Albumin 1.9 G/DL (3.4-5.0) L Globulin 5.0 g/dL Albumin/Globulin Ratio 0.4 (1.0-2.7) L Current Medications Medications (Trade) Dose Ordered Sig/Lavon Route PRN Reason Start Time Stop Time Status Last Admin Dose Admin Acetaminophen (Tylenol) 650 mg Q4H PRN ORAL FEVER (temp> 100.5F) 05/19/19 15:30 06/18/19 15:29 Calcitonin Watson (Miacalcin) 1 sprays DAILY NASAL 05/25/19 09:00 06/24/19 08:59 05/26/19 10:11 Dextrose 1,000 ml @ 30 mls/hr Q24H IV 05/24/19 12:00 06/23/19 11:59 05/25/19 12:20 Ertapenem 1 gm/ Sodium Chloride 55 ml @ 110 mls/hr Q24H IV 05/24/19 12:00 05/29/19 11:59 05/25/19 12:52 Heparin Sodium (Porcine) (Heparin 5000 units/ml) 5,000 units EVERY 12 HOURS SUBQ 05/24/19 21:00 06/23/19 20:59 05/26/19 10:13 Insulin Aspart (NovoLOG) EVERY 6 HOURS SUBQ 05/25/19 06:00 06/24/19 05:59 05/26/19 05:49 Insulin Aspart (NovoLOG) 6 units EVERY 6 HOURS SUBQ 05/25/19 06:00 06/24/19 05:59 05/26/19 05:48 Insulin Detemir (Levemir) 24 units Q12HR SUBQ 05/24/19 21:00 06/23/19 20:59 05/26/19 10:15 Lorazepam (Ativan 2mg/ml 1ml) 2 mg Q2H PRN IV For Anxiety 05/19/19 15:30 05/26/19 15:29 Morphine Sulfate (Morphine Sulfate) 4 mg Q4H PRN IVP Severe Pain (Pain Scale 7-10) 05/24/19 12:00 05/31/19 11:59 Sodium Hypochlorite (Dakin's Quarter Strength) 1 applic BEDTIME TOPIC 05/24/19 21:00 06/23/19 20:59 05/25/19 20:36 Renae Conteh M.D. May 26, 2019 10:38
--- NOTE | 2019-05-26 10:44 | NUR ---
RD ASSESSMENT & RECOMMENDATIONS SEE CARE ACTIVITY FOR COMPLETE ASSESSMENT DAILY ESTIMATED NEEDS: Needs based on Critical care, wounds 65kg 25-30 kcals/kg 8348-9794 total kcals 1.5-2 g protein/kg 98-130 g total protein 25-30 mL/kg 4477-2787 total fluid mLs NUTRITION DIAGNOSIS: 1) Increased kcal and protein needs r/t wound healing as evidenced by pt w/ multiple advanced wounds, including Full thickness Sacral pressure wound w/ necrosis, necrotic L earlobe, and left heel unstageable wound, refer to WC eval. 2) Swallowing difficulty r/t respiratory status as evidenced by pt is vent dep via trach, GT dep, on tube feeds. ENTERAL NUTRITION RECOMMENDATIONS: VITAL AF 1.2 @60ml/hr x24 hrs to provide 1440ml, 1728 kcal, 108g pro, 1168ml free H2O - Maintain current TF - HOB over 30 degrees - Increase water flushes for hypernatremia ADDITIONAL RECOMMENDATIONS: 1) PER SNF: pt is 143#, 65 inches tall 2) WOUND CARE: Add ALEENA BID via GT daily Add Vit C 250mmg BID Add ZnSO4 220mg QD x 10 days 3) Check lytes daily, replete as needed 4) Weekly CALIBRATED bed scale wts 5) DC D5 IVF, increase water flushes instead for BG control
--- NOTE | 2019-05-26 10:55 | Pulmonolgy Critical Care Note ---
Critical Care - Asmt/Plan Problems: (1) Acute and chronic respiratory failure (2) Septic shock (3) Multiple organ failure (4) Feeding by G-tube (5) Chronic anoxic encephalopathy (6) Decubitus skin ulcer (7) History of sudden cardiac arrest (8) Sepsis (9) ATN (acute tubular necrosis) Respiratory: monitor respiratory rate, adjust FIO2, CXR Cardiac: continue pressors, continue to monitor HR/BP Renal: F/U I&O Infectious Disease: check cultures Gastrointestinal: continue feedings/current rate, hold feedings Endocrine: check TSH Hematologic: monitor H/H, transfuse if hgb<8.5 Neurologic: PRN Ativan, PRN Morphine, keep patient comfortable Time Spent (Minutes): 40 Notes Reviewed: cardio, renal Discussed with: supportive employment case managerclient business manager - Objective Last 24 Hour Vital Signs Date Time Temp Pulse Resp B/P (MAP) Pulse Ox O2 Delivery O2 Flow Rate FiO2 05/26/19 10:45 71 16 30 05/26/19 09:14 95 16 30 05/26/19 08:00 30 05/26/19 08:00 97.7 83 16 118/63 (81) 97 05/26/19 08:00 Mechanical Ventilator 05/26/19 07:50 66 16 30 05/26/19 07:32 69 05/26/19 05:02 84 17 30 05/26/19 04:00 30 05/26/19 04:00 66 05/26/19 04:00 Mechanical Ventilator 05/26/19 04:00 98.5 72 16 133/89 (104) 100 05/26/19 02:57 74 18 30 05/26/19 01:28 78 16 30 05/26/19 00:00 Mechanical Ventilator 05/26/19 00:00 99.0 79 16 124/81 (95) 100 05/26/19 00:00 30 05/26/19 00:00 77 05/25/19 23:28 74 16 30 05/25/19 21:27 75 16 30 05/25/19 20:00 30 05/25/19 20:00 Mechanical Ventilator 05/25/19 20:00 98.5 83 16 108/74 (85) 100 05/25/19 20:00 82 05/25/19 19:23 80 16 30 05/25/19 17:08 70 19 30 05/25/19 16:00 74 05/25/19 16:00 Mechanical Ventilator 05/25/19 16:00 30 05/25/19 16:00 97.3 71 16 110/72 (85) 100 05/25/19 15:15 68 18 30 05/25/19 13:14 70 16 30 05/25/19 12:00 97.9 68 16 106/66 (79) 100 05/25/19 12:00 Mechanical Ventilator 05/25/19 12:00 30 05/25/19 11:51 72 05/25/19 11:10 72 16 30 Status: obtunded Condition: grave Neck: full ROM Lungs: clear, chest wall tender Heart: HR/BP stable Abdomen: soft, non-tender, feeding tube Extremities: no C/C/E Decubiti: location Micro: Microbiology Date/Time Source Procedure Growth Status 05/23/19 11:15 Blood Blood Culture - Preliminary NO GROWTH AFTER 48 HOURS Resulted 05/23/19 11:05 Blood Blood Culture - Preliminary NO GROWTH AFTER 48 HOURS Resulted 05/23/19 14:00 Sputum Induced Gram Stain - Final Resulted 05/23/19 14:00 Sputum Culture - Preliminary Gram Negative Bacillus 1 Gram Negative Bacillus 2 Usual Respiratory Uyen Resulted Accucheck: 186 Critical Care - Subjective ROS Limited/Unobtainable: No Condition: critical EKG Rhythm: Sinus Rhythm FI02: 30 Vent Support Breath Rate: 16 Vent Support Mode: AC Vent Tidal Volume: 600 Sputum Amount: Moderate PEEP: 5.0 PIP: 37 Tube Feeding Amount: 60 I&O: Intake and Output 05/25/19 05/26/19 18:59 06:59 Intake Total 1497.416 ml 1206.994 ml Output Total 1150 ml 1300 ml Balance 347.416 ml -93.006 ml Intake Free Water 100 ml 140 ml IV Total 677.416 ml 346.994 ml Tube Feeding 720 ml 720 ml Output Urine Total 1150 ml 1300 ml # Bowel Movements 2 Labs: Laboratory Tests Test 05/26/19 04:00 White Blood Count 13.2 K/UL (4.8-10.8) H Red Blood Count 3.46 M/UL (4.20-5.40) L Hemoglobin 9.0 G/DL (12.0-16.0) L Hematocrit 30.2 % (37.0-47.0) L Mean Corpuscular Volume 87 FL (80-99) Mean Corpuscular Hemoglobin 26.1 PG (27.0-31.0) L Mean Corpuscular Hemoglobin Concent 29.9 G/DL (32.0-36.0) L Red Cell Distribution Width 18.4 % (11.6-14.8) H Platelet Count 411 K/UL (150-450) Mean Platelet Volume 4.4 FL (6.5-10.1) L Neutrophils (%) (Auto) 77.3 % (45.0-75.0) H Lymphocytes (%) (Auto) 15.6 % (20.0-45.0) L Monocytes (%) (Auto) 4.2 % (1.0-10.0) Eosinophils (%) (Auto) 0.7 % (0.0-3.0) Basophils (%) (Auto) 2.2 % (0.0-2.0) H Sodium Level 152 MMOL/L (136-145) H Potassium Level 4.1 MMOL/L (3.5-5.1) Chloride Level 116 MMOL/L (98-107) H Carbon Dioxide Level 18 MMOL/L (21-32) L Anion Gap 18 mmol/L (5-15) H Blood Urea Nitrogen 15 mg/dL (7-18) Creatinine 0.5 MG/DL (0.55-1.30) #L Estimat Glomerular Filtration Rate > 60 mL/min (>60) Glucose Level 106 MG/DL (74-106) Calcium Level 11.1 MG/DL (8.5-10.1) H Phosphorus Level 2.6 MG/DL (2.5-4.9) Magnesium Level 2.4 MG/DL (1.8-2.4) Total Bilirubin < 0.1 MG/DL (0.2-1.0) L Aspartate Amino Transf (AST/SGOT) 54 U/L (15-37) H Alanine Aminotransferase (ALT/SGPT) 75 U/L (12-78) Alkaline Phosphatase 165 U/L (46-116) H Total Protein 6.9 G/DL (6.4-8.2) Albumin 1.9 G/DL (3.4-5.0) L Globulin 5.0 g/dL Albumin/Globulin Ratio 0.4 (1.0-2.7) L Zarrabi,Mirali MD May 26, 2019 10:55
--- NOTE | 2019-05-26 11:38 | NUR ---
*-* INSURANCE *-* ALL CLINICALS AND REVIEWS HAVE BEEN FAXED TO: [employer] S/W ИРИНА, AWARE OF THIS ADMISSION NCM: ИРИНА KEARNEY P- [phone] F- [phone]....REVIEW/CLINICAL
[2019-05-26 12:00] VITALS: BP 117/65
[2019-05-26] MEDS: Ertapenem 1gm ivpb (q24h) IV SCH ×2 (12:52)
--- NOTE | 2019-05-26 13:23 | NUR ---
DISCHARGE PLANNED [facility] 22B SKILLED T [phone] FOR NURSE TO NURSE REPORT [facility] WILL INVENTORY CONTROL MANAGER AT 1500
--- NOTE | 2019-05-26 14:36 | NUR ---
NURSE NOTES: PLACED A TELEPHONE CALL TO [facility] SUBAC[facility] AND REPORT GIVEN TO MARITA ACE IN CHARGE. A WAITING FOR [facility] STAFF TO CORPORATE RELATIONS DIRECTOR THE PATIENT. WILL CONT TO MONITOR .
--- NOTE | 2019-05-26 14:38 | Surgery Progress Note ---
Surgery Progress Note Subjective Additional Comments no acute events. labs abnormal. exam unchanged. Objective Last 24 Hour Vital Signs Date Time Temp Pulse Resp B/P (MAP) Pulse Ox O2 Delivery O2 Flow Rate FiO2 05/26/19 12:41 77 16 30 05/26/19 12:00 Mechanical Ventilator 05/26/19 12:00 30 05/26/19 12:00 97.7 75 18 117/65 (82) 100 05/26/19 10:45 71 16 30 05/26/19 09:14 95 16 30 05/26/19 08:00 30 05/26/19 08:00 97.7 83 16 118/63 (81) 97 05/26/19 08:00 Mechanical Ventilator 05/26/19 07:50 66 16 30 05/26/19 07:32 69 05/26/19 05:02 84 17 30 05/26/19 04:00 30 05/26/19 04:00 66 05/26/19 04:00 Mechanical Ventilator 05/26/19 04:00 98.5 72 16 133/89 (104) 100 05/26/19 02:57 74 18 30 05/26/19 01:28 78 16 30 05/26/19 00:00 Mechanical Ventilator 05/26/19 00:00 99.0 79 16 124/81 (95) 100 05/26/19 00:00 30 05/26/19 00:00 77 05/25/19 23:28 74 16 30 05/25/19 21:27 75 16 30 05/25/19 20:00 30 05/25/19 20:00 Mechanical Ventilator 05/25/19 20:00 98.5 83 16 108/74 (85) 100 05/25/19 20:00 82 05/25/19 19:23 80 16 30 05/25/19 17:08 70 19 30 05/25/19 16:00 74 05/25/19 16:00 Mechanical Ventilator 05/25/19 16:00 30 05/25/19 16:00 97.3 71 16 110/72 (85) 100 05/25/19 15:15 68 18 30 I&O Intake and Output 05/25/19 05/26/19 19:00 07:00 Intake Total 1467.416 ml 1146.994 ml Output Total 1150 ml 1300 ml Balance 317.416 ml -153.006 ml Intake Free Water 100 ml 140 ml IV Total 647.416 ml 346.994 ml Tube Feeding 720 ml 660 ml Output Urine Total 1150 ml 1300 ml # Bowel Movements 2 Dressing: saturated Wound: other Drains: other Cardiovascular: RSR Respiratory: decreased breath sounds Abdomen: soft, present bowel sounds, non-distended Extremities: no cyanosis Laboratory Tests Test 05/26/19 04:00 White Blood Count 13.2 K/UL (4.8-10.8) H Red Blood Count 3.46 M/UL (4.20-5.40) L Hemoglobin 9.0 G/DL (12.0-16.0) L Hematocrit 30.2 % (37.0-47.0) L Mean Corpuscular Volume 87 FL (80-99) Mean Corpuscular Hemoglobin 26.1 PG (27.0-31.0) L Mean Corpuscular Hemoglobin Concent 29.9 G/DL (32.0-36.0) L Red Cell Distribution Width 18.4 % (11.6-14.8) H Platelet Count 411 K/UL (150-450) Mean Platelet Volume 4.4 FL (6.5-10.1) L Neutrophils (%) (Auto) 77.3 % (45.0-75.0) H Lymphocytes (%) (Auto) 15.6 % (20.0-45.0) L Monocytes (%) (Auto) 4.2 % (1.0-10.0) Eosinophils (%) (Auto) 0.7 % (0.0-3.0) Basophils (%) (Auto) 2.2 % (0.0-2.0) H Sodium Level 152 MMOL/L (136-145) H Potassium Level 4.1 MMOL/L (3.5-5.1) Chloride Level 116 MMOL/L (98-107) H Carbon Dioxide Level 18 MMOL/L (21-32) L Anion Gap 18 mmol/L (5-15) H Blood Urea Nitrogen 15 mg/dL (7-18) Creatinine 0.5 MG/DL (0.55-1.30) #L Estimat Glomerular Filtration Rate > 60 mL/min (>60) Glucose Level 106 MG/DL (74-106) Calcium Level 11.1 MG/DL (8.5-10.1) H Phosphorus Level 2.6 MG/DL (2.5-4.9) Magnesium Level 2.4 MG/DL (1.8-2.4) Total Bilirubin < 0.1 MG/DL (0.2-1.0) L Aspartate Amino Transf (AST/SGOT) 54 U/L (15-37) H Alanine Aminotransferase (ALT/SGPT) 75 U/L (12-78) Alkaline Phosphatase 165 U/L (46-116) H Total Protein 6.9 G/DL (6.4-8.2) Albumin 1.9 G/DL (3.4-5.0) L Globulin 5.0 g/dL Albumin/Globulin Ratio 0.4 (1.0-2.7) L Plan Problems: (1) Septic shock Assessment & Plan: fever, leukocytosis, tachycardia ill appearing downgraded on IV Abx as per ID poor prognosis DNR/DNI will follow with recs trends labs (2) Multiple organ failure (3) MDRO (multiple drug resistant organisms) resistance (4) Severe anemia (5) Feeding by G-tube (6) Chronic respiratory failure (7) Hypercalcemia (8) Urinary tract infection (9) Chronic anoxic encephalopathy (10) Decubitus skin ulcer Assessment & Plan: Pt presented on admission with multiple pressure injuries: L earlobe grossly malodorous and necrotic with partial loss of earlobe.Ear canal and posterior to earlobe noted to be purple/red.(L)6cm x (W)1.5cm.Smal amt brown exudate noted. Dry eschar noted to R earlobe (L)1cm. Full thickness Sacral pressure with undermining.100% soft necrosis noted to base of wound and undermined borders. Additional soft necrosis noted to edges and periwound. Wound is malodorous. Small amt black exudate noted.(L)(L)7.5cm x (W)9.7cm. Unstageable pressure injury L heel .Base of wound fluctuant and purple in centre with surrounding dry eschar (L)3.4cm x (W)3.2cm.Non-blanchable erythema periwound. R heel dry and blanchable. Skin Assessed under collar of trach and no areas of concerns noted. Tx.Plan: Cleanse L earlobe with Dakin's 0.25% nataly. Apply Dakin's 0.25% moist [id number] and cover with Optifoam drsg Twice Daily and PRN. Cleanse Sacral area with Dakin's 0.25% Nataly.Loosely pack wound with Dakin's moist Kerlix. Apply Triad Periwound. Cover with Optifoam drsg. Twice Daily and prn. Apply Betadine to L heel. Cover with Optifoam drsg. Change every 3 days and prn. Reposition at least every 2hours or as tolerated. Off-load heels with pillow. if improves and stable will need debridement at some point either inpatient or outpatient (11) History of sudden cardiac arrest (12) Sepsis (13) ATN (acute tubular necrosis) (14) Acute and chronic respiratory failure Levon Nunes May 26, 2019 14:38
--- NOTE | 2019-05-26 16:05 | Nephrology Progress Note ---
Assessment/Plan Problem List: (1) Hypercalcemia (2) Chronic anoxic encephalopathy (3) Acute and chronic respiratory failure (4) Severe anemia Assessment Electrolyte imbalance: High Na and Low K Severe Hypercalcemia Severe HypoAlbuminemia DM Others: Acute and chronic respiratory failure Septic shock Multiple organ failure Feeding by G-tube Chronic anoxic encephalopathy Decubitus skin ulcer History of sudden cardiac arrest ATN (acute tubular necrosis) and Oliguria Plan Plan; NOW DNI DNR K Phos D5W for high Na previously: Aredia 90 mg on 05/21 Nasal calcitonin start today 05/23 D5W 75 cc / h K Phos IV monitor Lytes and Ca and Phos per orders discussed with RN Subjective ROS Limited/Unobtainable: Yes Objective Objective Last 24 Hour Vital Signs Date Time Temp Pulse Resp B/P (MAP) Pulse Ox O2 Delivery O2 Flow Rate FiO2 05/26/19 15:09 77 16 30 05/26/19 12:41 77 16 30 05/26/19 12:00 Mechanical Ventilator 05/26/19 12:00 30 05/26/19 12:00 97.7 75 18 117/65 (82) 100 05/26/19 11:51 76 05/26/19 10:45 71 16 30 05/26/19 09:14 95 16 30 05/26/19 08:00 30 05/26/19 08:00 97.7 83 16 118/63 (81) 97 05/26/19 08:00 Mechanical Ventilator 05/26/19 07:50 66 16 30 05/26/19 07:32 69 05/26/19 05:02 84 17 30 05/26/19 04:00 30 05/26/19 04:00 66 05/26/19 04:00 Mechanical Ventilator 05/26/19 04:00 98.5 72 16 133/89 (104) 100 05/26/19 02:57 74 18 30 05/26/19 01:28 78 16 30 05/26/19 00:00 Mechanical Ventilator 05/26/19 00:00 99.0 79 16 124/81 (95) 100 05/26/19 00:00 30 05/26/19 00:00 77 05/25/19 23:28 74 16 30 05/25/19 21:27 75 16 30 05/25/19 20:00 30 05/25/19 20:00 Mechanical Ventilator 05/25/19 20:00 98.5 83 16 108/74 (85) 100 05/25/19 20:00 82 05/25/19 19:23 80 16 30 05/25/19 17:08 70 19 30 Intake and Output 05/25/19 05/26/19 19:00 07:00 Intake Total 1467.416 ml 1206.994 ml Output Total 1150 ml 1300 ml Balance 317.416 ml -93.006 ml Intake Free Water 100 ml 140 ml IV Total 647.416 ml 346.994 ml Tube Feeding 720 ml 720 ml Output Urine Total 1150 ml 1300 ml # Bowel Movements 2 Laboratory Tests 05/26/19 04:00: White Blood Count 13.2H, Red Blood Count 3.46L, Hemoglobin 9.0L, Hematocrit 30.2L, Mean Corpuscular Volume 87, Mean Corpuscular Hemoglobin 26.1L, Mean Corpuscular Hemoglobin Concent 29.9L, Red Cell Distribution Width 18.4H, Platelet Count 411, Mean Platelet Volume 4.4L, Neutrophils (%) (Auto) 77.3H, Lymphocytes (%) (Auto) 15.6L, Monocytes (%) (Auto) 4.2, Eosinophils (%) (Auto) 0.7, Basophils (%) (Auto) 2.2H, Sodium Level 152H, Potassium Level 4.1, Chloride Level 116H, Carbon Dioxide Level 18L, Anion Gap 18H, Blood Urea Nitrogen 15, Creatinine 0.5#L, Estimat Glomerular Filtration Rate > 60, Glucose Level 106, Calcium Level 11.1H, Phosphorus Level 2.6, Magnesium Level 2.4, Total Bilirubin < 0.1L, Aspartate Amino Transf (AST/SGOT) 54H, Alanine Aminotransferase (ALT/SGPT) 75, Alkaline Phosphatase 165H, Total Protein 6.9, Albumin 1.9L, Globulin 5.0, Albumin/Globulin Ratio 0.4L Height (Feet): 5 Height (Inches): 3.00 Weight (Pounds): 156 EENT: other - trach Cardiovascular: normal rate Respiratory/Chest: decreased breath sounds Abdomen: distended Objective no change Palomo Lizarraga MD May 26, 2019 16:05
[2019-05-26] MEDS ORDERED: Tubing IV Secondary IV ONE (17:02)
[2019-05-26] MEDS ORDERED: NS 275ml ONE (17:02)
--- NOTE | 2019-05-27 10:28 | Discharge Summary ---
Discharge Summary Discharge Summary _ DATE OF ADMISSION: 05/19/2019 DATE OF DISCHARGE: 05/26/2019 ADMITTING MD: Dr. Mainor Newsome DISCHARGED BY: Dr. Rula Corrigan CONSULTANTS: Dr. Rula Urrutia BRIEF HOSPITAL COURSE: Patient is a 69-year-old unfortunate -[place] female, with past medical history significant for hypertension, dyslipidemia, chronic respiratory from nursing facility after she was noted with worsening shortness of breath. Patient was nonverbal, history was taken from [facility] and ER documentation. On evaluation at ED,. Blood work showed WBC elevated to 19, hemoglobin and hematocrit were stable. Sodium was elevated to 147, chloride to 110. Potassium was 5.6. BUN was 61, creatinine 0.4. Glucose level 456. Calcium 13. LFTs were elevated. Troponin was negative. Urinalyses showed 2+ protein, +1 glucose, negative nitrite, 2+ leukocyte esterase, 2-4 urine RBC and 15-20 urine WBC. Chest x-ray showed increased left lung volume loss and parenchymal consolidation. Blood pressure was trending down. Left IV site was infiltrated. A central line was inserted to the right femoral. She was continued on IV hydration. She was started empirically on cefepime and vancomycin. She was then admitted to ICU for evaluation of sepsis secondary to pneumonia as well as infected decubitus ulcer. She was connected to vent support. She was given aggressive IV hydration. Blood pressure continued to be low. She was eventually started on IVpressors. She is full code. She was started on broad-spectrum antibiotics with vancomycin and Zosyn. She was given heparin subcutaneous for DVT prophylaxis. Blood glucose was monitored. She was placed on insulin sliding scale. She was resumed on tube feeding. She came in with significantly deteriorated wound. Surgeon was called to evaluate and assist with care. She was noted to have full-thickness sacral pressure with undermining. Wound was malodorous. There was a small amount of black exudate noted. She had multiple pressure injuries on the left earlobe and a dry eschar to the right earlobe. Left heel had unstageable pressure injury; right heel was dry and blanchable. She was given wound care. She was placed on frequent repositioning and offloading. Patient had severe hyperglycemia and hypoalbuminemia. She had a high sodium and low potassium. Hydrotherapist was consulted. She was given D5Wand K-Phos IV. She was given Aredia 90 mg. Glucose levels were persistently high. Workday Director was consulted. She was given Levemir twice daily. She was continued on resistant insulin sliding scale. Insulin doses were adjusted. Urinalysis showed mixed leslee. Blood culture with Proteus x2 sets. She was continued on Zosyn and vancomycin. On 05/21/2019, she was taken off IV pressors. She was ill appearing. She continued to have leukocytosis. She was transferred out of ICU on 05/24/19. Court order from public guardians office indicated patient is DNR/DNI/comfort measures only/hospice care. Order did not indicate clearly if patient could be terminally extubated from vent support. CODE STATUS was changed to DNR/DNI. Would eventually need clarification from the court. Zosyn was changed to ertapenem for ESBL bacteremia and pneumonia. Repeat blood culture did not isolate any growth. Leukocytosis improved. She was eventually discharged back to subacute facility. FINAL DIAGNOSES: Sepsis, possibly from pneumonia and ESBL bacteremia Acute on chronic respiratory failure, probable pneumonia Septic shock Multiple organ failure Evaluate G-tube Chronic anoxic encephalopathy History of cardiac arrest Acute tubular necrosis Severe hypercalcemia Severe hypoalbuminemia Diabetes mellitus Hyponatremia Hypokalemia Elevated LFTs Dehydration Diabetes mellitus, out of control Multiple decubiti, as stated above, present on admission DNR/DNI DISPOSITION: Patient was discharged to [facility]. DISCHARGE MEDICATIONS: Refer to Discharge Medication List. I have been assigned to complete a discharge summary on this account, I was not involved with the patient's management.--ROLF Ortiz Jacqueline Robles NP May 27, 2019 10:28
== END 2019-05-26 17:03 | DRG 720 ==
LOC: EDBD 13:09 → EMR 14:50 → ICU 15:30 → EDBEDREQ 16:38 → 2W 05-24 11:15
PROC: 5A1955Z Respiratory Ventilation, Greater than 96 Consecutive Hours (ICD-10-PCS; principal; 2019-05-19)
DX: A41.9 Sepsis, unspecified organism (principal); N17.0 Acute kidney failure with tubular necrosis; J96.20 Acute and chronic respiratory failure, unspecified whether with hypoxia or hypercapnia; R65.21 Severe sepsis with septic shock; Z99.11 Dependence on respirator [ventilator] status; G93.1 Anoxic brain damage, not elsewhere classified; L89.154 Pressure ulcer of sacral region, stage 4; J18.9 Pneumonia, unspecified organism; J44.0 Chronic obstructive pulmonary disease with (acute) lower respiratory infection; N39.0 Urinary tract infection, site not specified; Z16.35 Resistance to multiple antimicrobial drugs; I10 Essential (primary) hypertension; E78.5 Hyperlipidemia, unspecified; Z93.0 Tracheostomy status; Z86.74 Personal history of sudden cardiac arrest; F25.9 Schizoaffective disorder, unspecified; E83.52 Hypercalcemia; R13.10 Dysphagia, unspecified; E88.09 Other disorders of plasma-protein metabolism, not elsewhere classified; E87.0 Hyperosmolality and hypernatremia; E86.0 Dehydration; E87.5 Hyperkalemia; E11.65 Type 2 diabetes mellitus with hyperglycemia; Z66 Do not resuscitate
CPT/HCPCS: 36415; 36600; 71045; 76770; 80048; 80053; 80061; 80069; 80076; 80202; 81003; 82043; 82550; 82553; 82803; 82962; 82977; 83036; 83605; 83735; 83880; 83935; 84100; 84300; 84443; 84484; 84550; 85007; 85025; 85651; 86140; 86850; 86900; 86901; 87040; 87070; 87081; 87086; 87181; 87205; 89050; 93005; 93306; 93970; 94002; 94003; 96365; 96366; 96368; 99291; J1815; J2430; J8499; S5561

== ENCOUNTER 2019-06-07 21:31 | Inpatient (IN) | payer OTHER ==
[~2019-06-07] VITALS: Ht 165.1 cm; Wt 68.5 kg
[2019-06-07 22:00] VITALS: BP 107/74
--- NOTE | 2019-06-07 22:00 | NUR ---
ED Nurse Note: PT FROM [facility] DUE TO A COURT ORDER FOR REMOVAL OF TRACH. [facility] AT [facility]. AWAKE BUT NON VERBAL ABD WITH SWELLING OF UPPER EXTREMIETIES. ALSO WITH INDWELLING FC.
--- NOTE | 2019-06-07 22:58 | NUR ---
ED Nurse Note: NOTED A LARGE AND DEEP WOUND ON SACRUM. ALSO NOTED A LARGE CUT ON PT'S LEFT EAR. PICTURES TAKEN AND UPLOADED.
--- NOTE | 2019-06-07 23:20 | NUR ---
HAND-OFF: Report given to JD ACE.
[2019-06-08] VITALS: BP 107/74
--- NOTE | 2019-06-08 01:00 | NUR ---
ED Nurse Note: Patient was admited t SDU for extubation folow by paliative care. Patient was BIBA from [facility] for extubation. [place], gave authority to allow: DNR, DNI, and comfort measure only. Patient was brought for paliative care at 06/07/19. Patient was transfered to unit via gurney.
--- NOTE | 2019-06-08 01:00 | NUR ---
NURSE NOTES: Report received from DB Shukla. Pt transferred to the unit via gurney. awake overnight monitor applied. Belonging checked with RN. Skin checked with RN and picture taken on Sacral, left ear, and left heel. SR with satellite project site monitor. Trach to vent, AC 16, TV 600, FIO2 40%, PEEP 5, tolerating well to the current setting. GT intact and clamped. F/C intact and draining well. IV on L AC 24G, SL. Bed in the lowest position. Side rails up x3. Will continue to monitor.
[2019-06-08] MEDS ORDERED: LEVEMIR FL100 UNIT/1 SUBQ (01:48)
[2019-06-08] MEDS ORDERED: ALBUTEROL2.5 MG/3 M INH (01:48)
[2019-06-08] MEDS ORDERED: NOVOLOG100 UNITS1 (01:48)
[2019-06-08] MEDS ORDERED: KLONOPIN0.5 MG GT (01:48)
[2019-06-08] MEDS ORDERED: DULCOLAX10 MG RC (01:48)
[2019-06-08] MEDS ORDERED: VITAMIN D35000 UNIT GT (01:48)
[2019-06-08] MEDS ORDERED: MILK OF MA400 MG/51 GT (01:48)
[2019-06-08 04:00] VITALS: BP 101/52
--- NOTE | 2019-06-08 05:41 | Emergency Room Report ---
History of Present Illness General Chief Complaint: General Complaint Source: Medical Record Present Illness HPI Patient is a 69-year-old female sent in by nursing facility for removal of tracheostomy and further evaluation of comfort care. Patient was noted to have a court order which was sent to the hospital with the patient. Patient was reportedly tracheostomy and ventilator dependent. Patient was noted to have decreased level conscious and anoxic brain injury. Patient was not noted to have any acute change in condition at this time. Allergies: Coded Allergies: DIPHENHYDRAMINE (Verified Allergy, Unknown, 02/24/19) FLUPHENAZINE (Verified Allergy, Unknown, 02/24/19) Patient History Past Medical History: see triage record Now: No Reviewed Nursing Documentation: PMH: Agreed; PSxH: Agreed Nursing Documentation-PMH Past Medical History Deferred: Pt Cognitively Impaired Hx Hypertension: Yes - Hyperlipidemia Hx COPD: Yes Hx Diabetes: Yes Hx Cancer: No Hx Gastrointestinal Problems: Yes - G-tube History Of Psychiatric Problem: Yes - anxiety Hx Aphasia: Yes Review of Systems All Other Systems: limited - By mental status. Physical Exam Vital Signs Date Time Temp Pulse Resp B/P (MAP) Pulse Ox O2 Delivery O2 Flow Rate FiO2 06/07/19 21:50 50 06/07/19 21:50 74 16 95 Mechanical Ventilator 06/07/19 21:50 136/82 (100) 06/08/19 01:00 98.0 General Appearance: Chronically Ill ENT: moist mucus membranes Neck: limited range of motion Respiratory: lungs clear, normal breath sounds Cardiovascular #1: normal inspection Gastrointestinal: soft Musculoskeletal: normal inspection Neurologic: aphasia, other - unresponsive Skin: warm/dry Medical Decision Making Diagnostic Impression: Primary Impression: extubation, paliative care ER Course Patient presented for possible extubation and change of status. Per patient's court order patient was to have extubation performed. Dr. Bruce was contacted for definitive management and comfort care. patient will be admitted to the stepdown unit due to current ventilator status. Pulmonology will be contacted by Dr. Bruce for extubation Last Vital Signs Date Time Temp Pulse Resp B/P (MAP) Pulse Ox O2 Delivery O2 Flow Rate FiO2 06/08/19 04:58 65 16 40 06/08/19 01:27 Mechanical Ventilator 06/08/19 01:00 98.0 107/74 100 Status: unchanged Disposition: ADMITTED INPATIENT Condition: Stable Referrals: Bassem Bruce MD (PCP) Rosendo Gonzalez MD Jun 08, 2019 05:41
--- NOTE | 2019-06-08 06:35 | NUR ---
RESPIRATORY NOTE: Recieved pt on vent with current settings: AC 16-600ml-40%- peep 5. Pt is tach dependent with Portex 7.0, secured by trach guard and trach tie. Amish rhonchi B/S heard upon auscultation, suctioned small amount of thick/thin/ frothy white klein secretions without incidents. Alarms are set and audible, vent is plugged into the red outlet, ambu bag is at bedside. Pt is resting in the bed, no SOB or resp distress noted. Will continue to monitor. Addendum: 06/08/19 at 0843 by Jayne Cervantes Poon RT typo corrections: Received not recieved, Trach not tach
--- NOTE | 2019-06-08 07:45 | NUR ---
HAND-OFF: Report given to DB Crain. No acute distress noted at this time.
[2019-06-08 08:00] VITALS: BP 93/64
--- NOTE | 2019-06-08 08:15 | NUR ---
NURSE NOTES: received pt in the bed, obtunded, vent dependent, comfort care, vital signs stable, no sob, no co pain, GT clump, skin warm and dry to touch,Cormier catheter with yellow urine, bed in low position, HOB elevated.
--- NOTE | 2019-06-08 11:08 | Consultation ---
History of Present Illness General Date patient seen: Jun 08, 2019 Chief Complaint: General Complaint Present Illness HPI 69-year-old female, vegetative state, chronic vent, trach, PEG with public guardian which was initiated a few month ago at [facility]. Pt is kept alive on a respiratory in a long term. The public guardian finally agreed with terminal extubation. The long term apparently doesn't have any resources to perform palliative extubation. She was transferred to ER and then admitted to [facility], so she can be taken off the life support. ( what a waste of time and resources). Allergies: Coded Allergies: DIPHENHYDRAMINE (Verified Allergy, Unknown, 02/24/19) FLUPHENAZINE (Verified Allergy, Unknown, 02/24/19) Medication History Scheduled Amlodipine Besylate (Norvasc), 5 MG GT DAILY, (Reported) Ascorbic Acid* (Vitamin C*), 500 MG GT DAILY, (Reported) Atorvastatin Calcium* (Lipitor*), 10 MG GT DAILY, (Reported) Cholecalciferol (Vitamin D3) (Vitamin D3), 5,000 UNIT GT DAILY, (Reported) Clonazepam* (Klonopin*), 0.5 MG GT DAILY, (Reported) Docusate Sodium* (Colace*), 100 MG GT DAILY, (Reported) Famotidine (Famotidine), 20 MG GT DAILY, (Reported) Heparin Sod (Porcine) (Heparin Sodium*), 5,000 UNITS SUBQ EVERY 12 HOURS, ( Reported) Insulin Detemir (Levemir Flexpen), 24 SUBQ Q12HR, (Reported) Multivitamins* (Multivitamins*), 1 TAB GT DAILY, (Reported) Zinc Sulfate (Zinc Sulfate*), 220 MG GT DAILY, (Reported) Scheduled PRN Acetaminophen (Tylenol), 325 MG GT Q4HR PRN for Prn Pain/Headache/Temp > 101, ( Reported) Albuterol Sulfate* (Albuterol Sulfate Hhn*), 3 ML INH Q6H PRN for Shortness of Breath, (Reported) Bisacodyl (Dulcolax), 10 MG RC DAILY PRN for Constipation, (Reported) Magnesium Hydroxide* (Milk Of Magnesia*), 30 ML GT QHS PRN for Constipation, ( Reported) Miscellaneous Medications Insulin Aspart (Novolog Flexpen), (Reported) Patient History Healthcare decision maker Resuscitation status Do Not Resuscitate Advanced Directive on File Past Medical/Surgical History Past Medical/Surgical History: (1) History of sudden cardiac arrest (2) Decubitus skin ulcer (3) Chronic anoxic encephalopathy (4) Chronic respiratory failure (5) Feeding by G-tube Review of Systems All Other Systems: negative except mentioned in HPI Physical Exam General Appearance: WD/WN Lines, tubes and drains: peripheral HEENT: normocephalic, atraumatic Neck: non-tender, supple Respiratory/Chest: chest wall non-tender, lungs clear Breasts: no masses Cardiovascular/Chest: normal peripheral pulses, regular rhythm Abdomen: normal bowel sounds Genitourinary/Rectal: normal genital exam Extremities: normal range of motion Last 24 Hour Vital Signs Date Time Temp Pulse Resp B/P (MAP) Pulse Ox O2 Delivery O2 Flow Rate FiO2 06/08/19 08:43 69 16 40 06/08/19 08:00 71 06/08/19 08:00 Mechanical Ventilator 06/08/19 08:00 40 06/08/19 08:00 95.5 73 16 93/64 (74) 100 06/08/19 06:34 67 15 40 06/08/19 04:58 65 16 40 06/08/19 04:00 Mechanical Ventilator 06/08/19 04:00 96.0 67 17 101/52 (68) 100 06/08/19 04:00 40 06/08/19 04:00 64 06/08/19 03:14 67 17 40 06/08/19 01:27 Mechanical Ventilator 06/08/19 01:05 67 16 40 06/08/19 01:00 98.0 76 16 107/74 100 Mechanical Ventilator 40 06/08/19 00:00 76 16 107/74 100 Mechanical Ventilator 40 06/07/19 22:40 40 06/07/19 22:38 75 16 40 06/07/19 22:00 76 16 107/74 100 Mechanical Ventilator 50 06/07/19 22:00 76 16 Mechanical Ventilator 50 06/07/19 21:50 74 16 50 06/07/19 21:50 90 16 136/82 (100) 95 Mechanical Ventilator 06/07/19 21:50 74 16 95 Mechanical Ventilator 50 06/07/19 21:50 50 Intake and Output 06/07/19 06/08/19 19:00 07:00 Output Total 800 ml Balance -800 ml Output Urine Total 800 ml # Voids 1 # Bowel Movements 3 Height (Feet): 5 Height (Inches): 5.00 Weight (Pounds): 151 Assessment/Plan Problem List: (1) Chronic vegetative state ICD Codes: R40.3 - Persistent vegetative state SNOMED: 25819495 (2) History of sudden cardiac arrest ICD Codes: Z86.74 - Personal history of sudden cardiac arrest SNOMED: 76314290, 634010382 (3) Decubitus skin ulcer ICD Codes: L89.90 - Pressure ulcer of unspecified site, unspecified stage SNOMED: 814427638 (4) Chronic anoxic encephalopathy ICD Codes: G93.1 - Anoxic brain damage, not elsewhere classified SNOMED: 73605125 (5) Chronic respiratory failure ICD Codes: J96.10 - Chronic respiratory failure, unspecified whether with hypoxia or hypercapnia SNOMED: 51979117 (6) Feeding by G-tube ICD Codes: Z93.1 - Gastrostomy status SNOMED: 315680295, 039889126, 611622242 Assessment/Plan: social service consult review court order and proceed accordingly. Rula Corrigan MD Jun 08, 2019 11:08
[2019-06-08 12:00] VITALS: BP 109/80
--- NOTE | 2019-06-08 12:30 | NUR ---
NURSE NOTES: vital signs stable, no change in condition, bed bath given, repositioned, continue monitoring.
--- NOTE | 2019-06-08 13:15 | NUR ---
*-* INSURANCE *-* ALL CLINICALS HAVE BEEN FAXED TO: [facility] S[facility]W [facility] / [employer]...AWARE OF THIS ADMISSION.. PLEASE FAX THE REVIEW/CLINICAL NCM: ИРИНА KEARNEY P- [phone] F- [phone]...REVIEW/CLINICAL
--- NOTE | 2019-06-08 13:16 | NUR ---
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 98.0 HR 90 RR 16 B/P 136/82 AC 16 TV 500 FIO2 40% IS: ADMITTED TO STEP DOWN STEP DOWN STATUS DCP PENDING HOSPITAL STAY
[2019-06-08] MEDS ORDERED: Morphine Sulfate 10mg/ml Inj IVP SCH (14:12)
[2019-06-08] MEDS ORDERED: Glycopyrrolate 0.2mg/ml 1ml Vial IV PRN (14:15)
[2019-06-08] MEDS ORDERED: Artificial Tears 1.4% Op Soln BOTH EYES PRN (14:15)
--- NOTE | 2019-06-08 14:15 | NUR ---
Social Service Note GATO reviewed court orders and spoke with [place] public guardian [phone] confirming palliative extubation. GATO discussed with Dr. Corrigan. Per [place] patient doesn't have arrangements. Patient will be referred to public local area network administrator for burial.
--- NOTE | 2019-06-08 14:50 | NUR ---
NURSE NOTES: pt was terminal extubated as ordered by dr. Corrigan.
--- NOTE | 2019-06-08 14:55 | NUR ---
RESPIRATORY NOTE: Terminal extubated pt per Dr. Corrigan's order. Pt is in room air 21%, HR 74bpm, RR 12, 99% saturation. DB Crain at bedside and made aware. Will continue with the plan of care.
--- NOTE | 2019-06-08 15:54 | Emergency Room Report ---
History of Present Illness General Chief Complaint: General Complaint Source: Medical Record Present Illness HPI I was called to evaluate the patient. Patient apparently was terminal extubation patient. I was asked to pronounce the patient. I arrived to see the patient. Patient appeared to be at peace. There was no spontaneous pulse. No heartbeat noted. And no heart sounds. And no spontaneous breathing. Pupils are fixed and dilated. No further issues were noted. Patient required a physician to pronounce the patient. Allergies: Coded Allergies: DIPHENHYDRAMINE (Verified Allergy, Unknown, 02/24/19) FLUPHENAZINE (Verified Allergy, Unknown, 02/24/19) Patient History Now: No Nursing Documentation-[facility] Past Medical History Deferred: Pt Cognitively Impaired Hx Hypertension: Yes - Hyperlipidemia Hx COPD: Yes Hx Diabetes: Yes Hx Cancer: No Hx Gastrointestinal Problems: Yes - G-tube History Of Psychiatric Problem: Yes - anxiety Hx Aphasia: Yes Physical Exam Vital signs: Pulseless. Apneic. Cold. Respiratory: other - No spontaneous breathing. Cardiovascular #1: other - No heartbeats noted. Skin: other - Cold. Medical Decision Making Diagnostic Impression: Primary Impression: Cardiopulmonary arrest Additional Impression: ER Course I was asked to evaluate patient and to pronounce the patient. Patient did have a tracheostomy which is why patient required physician to pronounce patient. I evaluated patient patient's apneic pulseless cold pupils fixed and dilated consistent with . Patient was pronounced at 1547. Last Vital Signs Date Time Temp Pulse Resp B/P (MAP) Pulse Ox O2 Delivery O2 Flow Rate FiO2 06/08/19 15:18 96.3 06/08/19 12:19 76 16 40 06/08/19 12:00 109/80 (90) 100 06/08/19 12:00 Mechanical Ventilator Disposition: Condition: Referrals: Bassem Bruce MD (PCP) Jaydon Guzman MD Jun 08, 2019 15:54
--- NOTE | 2019-06-08 16:46 | NUR ---
NURSE NOTES: pt at 1547, Bassem Wagner notified, Chadwick CUMMINGS public guardian notified.
--- NOTE | 2019-06-08 23:00 | History and Physical Report ---
DATE OF ADMISSION: 06/07/2019 It is one of the admission to [facility] of this 69-year-old patient for the purpose of terminal extubation. HISTORY OF PRESENT ILLNESS: The patient is a resident of an extended care facility subacute unit where she has been now for the last several weeks. She was previously in that unit as well for a long time with multiple chronic medical syndrome. She is known to have status post CVA. She has respiratory failure, on mechanical ventilation through tracheostomy and fed via gastrostomy tube. She was nonverbal, but communicative, but she had no eye contact. However, after her last admission at this medical center, she remained nonverbal, nonresponsive, without eye contact. She has Coma scale 6 and quadriplegia. Request was done to the Civil Court to have the patient undergo terminal extubation. district associate judge of the [place] under the extubated and placed in hospice care. As the patient with terminal extubation will require management with morphine drip, the patient is now being admitted for that purpose. PAST MEDICAL HISTORY: As above. MEDICATIONS: All the patient's medications have been discontinued. ALLERGIES: No known drug allergies. FAMILY HISTORY: Apparently, the patient has no immediate family and the request for terminal extubation was done by the patient's conservator. HABITS: The patient did not smoke, drink, or use illicit drugs. REVIEW OF SYSTEMS: The patient is not able to give any information regarding her state of health. PHYSICAL EXAMINATION: VITAL SIGNS: Blood pressure is 109/80, pulse is 81, respirations of 16, and temperature of 96.3. HEENT: Eyes were normal. Pupils were round, equal, and reactive to light. Extraocular movement could not be assessed. Temporal arteries were palpable bilaterally. There was bilateral temporal wasting. Visual lawrence to confrontation and neglect sign could not be assessed. ENT, mucous membranes were not dehydrated. Auditory canals were clear and tympanic membranes could not be visualized. Nasal cavity was not congested. Nasal septum was intact. Soft palate and pharynx could not be visualized. Tongue was dry, midline, and normally papillated. NECK: Supple. There was no goiter. No mass. No lymphadenopathy. There was no JVD. No bruits. Carotid upstroke was 2+. LUNGS: Clear. HEART: PMI was fifth left intercostal space in midclavicular line. There was normal S1 and normal S2. There was no murmur. No arrhythmia. No S3. No S4. No pericardial rub. ABDOMEN: Soft and nontender without organomegaly. There were no masses palpable. Normal bowel sounds without bruits. There was no guarding. No rebound tenderness. No ascites. No hernia. No CVA tenderness. Liver span was 8 cm, mostly nontender. EXTREMITIES: No cyanosis, no clubbing, and no edema. Extremities were warm. NEUROLOGICAL EXAMINATION: Reflexes in biceps, triceps, and brachioradialis were difficult to elicit. Patellar retinaculum were present. Plantar were indifferent. Cranial nerves from II through XII were symmetric and equal. Cerebellar function, there was no tremor. No nystagmus. No extrapyramidal rigidity. Sensory exam to pinprick, cotton touch, position, and motor strength was not tested. LABORATORY DATA: Laboratory were not done, the one available in the chart is of 05/26/2019. Hemoglobin is 9.0, hematocrit was 30.2 with MCV of 87, WBC of 13.2, and platelets of 411,000. Her BUN and creatinine was 15 and 0.51 respectively. Her sodium is 132, potassium 4.1, chloride 116, and CO2 is 19. IMPRESSION: The patient appeared to be in stable condition. She behavior. Pulmonary business operations consultant was called to assist in the management of this case. The patient's feeding will be continued and pain medication will be given for pain management. Bassem Bruce M.D. DR: MARY JOB#: [id number] CC:
--- NOTE | 2019-06-09 09:10 | Discharge Summary ---
Discharge Summary Discharge Summary _ DATE OF ADMISSION: 06/07/2019 DATE OF DISCHARGE: 06/08/2019 BRIEF SUMMARY: Patient was a 69-year-old female, who was sent to ED for purpose of terminal extubation. Patient was a resident of an extended care facility subacute unit where she was for the last several weeks. She was in the unit for a long time with multiple chronic medical syndrome. She was noted to have status post CVA. She had respiratory failure, on mechanical ventilation through tracheostomy and was fed via gastrostomy tube. She was nonverbal, but communicative and had no eye contact. However, after her last admission, she remained nonverbal, nonresponsive, and without eye contact. She had coma scale 6 and quadriplegia. Request was done to Civil Court to have patient undergo terminal extubation. Court order was to have patient terminally extubated. Patient required management with morphine drip. Patient was then transferred to the hospital for terminal extubation. Patient was admitted to [facility]. Social service was consulted to confirm court orders. Public guardian confirmed palliative extubation. Patient was then terminally extubated and eventually . FINAL DIAGNOSES: Palliative care for terminal extubation Chronic vegetative state Chronic anoxic encephalopathy Feeding via G-tube Chronic respiratory failure DISPOSITION: Patient . I have been assigned to complete a discharge summary on this account, I was not involved with the patient's management.--ROLF Ortiz Jacqueline Robles NP Jun 09, 2019 09:10
--- NOTE | 2019-06-09 16:47 | NUR ---
*-* INSURANCE *-* ALL CLINICALS HAVE BEEN FAXED TO: [employer] / [employer]...AWARE OF THIS ADMISSION.. PLEASE FAX THE REVIEW/CLINICAL MYKE: ИРИНА Salgado- [phone] f- [phone]...REVIEW/CLINICAL Addendum: 06/09/19 at 1647 by STEPHANY FINE CM DISCHARGE SUMMARY
== END 2019-06-08 17:40 | disposition expired | DRG 862 ==
LOC: EDBD 21:31 → EMR 21:57 → 2W 23:05 → EDBEDREQ 23:57 → 2W 06-08 00:53
PROC: 5A1935Z Respiratory Ventilation, Less than 24 Consecutive Hours (ICD-10-PCS; principal; 2019-06-07)
PROC: 0BP1XDZ Removal of Intraluminal Device from Trachea, External Approach (ICD-10-PCS; 2019-06-08)
DX: Z51.5 Encounter for palliative care (principal); G93.1 Anoxic brain damage, not elsewhere classified; G82.50 Quadriplegia, unspecified; Z99.11 Dependence on respirator [ventilator] status; J96.10 Chronic respiratory failure, unspecified whether with hypoxia or hypercapnia; L89.153 Pressure ulcer of sacral region, stage 3; L89.813 Pressure ulcer of head, stage 3; R40.3 Persistent vegetative state; L89.622 Pressure ulcer of left heel, stage 2; Z93.1 Gastrostomy status; Z93.0 Tracheostomy status; Z86.74 Personal history of sudden cardiac arrest; E78.5 Hyperlipidemia, unspecified; E11.9 Type 2 diabetes mellitus without complications; Z86.73 Personal history of transient ischemic attack (TIA), and cerebral infarction without residual deficits
CPT/HCPCS: 87081; 93005; 94002; 94003; 94664; 99285